=== PATIENT | male | born 1980 | race Caucasian/White ===

== ENCOUNTER 2016-05-06 16:46 | Emergency (ER) | payer MEDICARE, MEDICAID ==
[~2016-05-06 16:46] MED LIST: /ADVA50050 INH; /MIRT15TA OR; ADDE10TA PO; CHAN0.5P6 PO; CLON2TAB OR; DEPA500T2 OR; DICL0.1S7 TOP; DULE200A INH; FOLI1TAB OR; IMIT100T OR; LISI20TA5 OR; PROP20TA2 OR; QUET30XR OR; TIZA4CAP PO; TRAM50TA2 OR; [UNRECOGNIZED DRUG - OTHER]; amphetamine salts PO; vibryd PO
[2016-05-06] MEDS ORDERED: KETOROLAC 30 MG/ML VIAL (J1885) As Ordered ONE (17:47)
[2016-05-06] MEDS ORDERED: ONDANSETRON 4MG/2ML VIAL (J2405) As Ordered ONE (17:47)
[2016-05-06 18:10] LABS: BASO % 0.4 % (0.0-1.0); EOS # 0.1 K/mm3 (0.0-0.50); EOS % 1.4 % (0.0-3.0); LARGE UNSTAINED CELL # 0.2 K/mm3 (0.0-0.4); LARGE UNSTAINED CELL % 2.3 % (0.0-4.0); LYMPH # 2.6 K/mm3 (1.5-4.5); LYMPH % 27.1 % (24.0-44.0); MEAN CORPUSCULAR HEMOGLOBIN 32.1 pg (27.0-33.0); MEAN CORPUSCULAR VOLUME 91.6 fl (80.0-96.0); MONO # 0.7 K/mm3 (0.0-0.8); MONO % 6.7 % (0.0-5.0); NEUTROPHILS % 62.1 % (36.0-66.0); PLATELET COUNT, AUTOMATED 207 k/mm3 (150-450); RED CELL DISTRIBUTION WIDTH 11.5 % (11.5-14.5); WHITE BLOOD COUNT 9.7 K/mm3 (4.0-10.0)
[2016-05-06 18:12] LABS: CALCIUM OXALATE CRYSTALS SMALL
[2016-05-06 18:41] LABS: ALBUMIN 4.3 GM/DL (3.2-5.2); ALKALINE PHOSPHATASE 70 U/L (45-117); ALT/SGPT 25 U/L (12-78); ANION GAP 11 MEQ/L (8-16); AST/SGOT 11 U/L (15-37); BILIRUBIN,DIRECT 0.1 MG/DL (0.0-0.2); BILIRUBIN,TOTAL 0.3 MG/DL (0.2-1.0); BLOOD UREA NITROGEN 12 MG/DL (7-18); CALCIUM LEVEL 9.1 MG/DL (8.5-10.1); CARBON DIOXIDE LEVEL 27 MEQ/L (21-32); CHLORIDE LEVEL 106 MEQ/L (98-107); CREATININE FOR GFR 0.96 MG/DL (0.70-1.30); GLOMERULAR FILTRATION RATE > 60.0 (>60); GLUCOSE, FASTING 79 MG/DL (70-105); POTASSIUM SERUM 3.7 MEQ/L (3.5-5.1); SODIUM LEVEL 144 MEQ/L (136-145); TOTAL PROTEIN 7.6 GM/DL (6.4-8.2)
[2016-05-06] MEDS ORDERED: ISOVUE-370 76% 100ML VIAL (Q9967) As Ordered ONE (19:02)
--- NOTE | 2016-05-06 19:50 | REPUSA ---
CLINICAL HISTORY: Abdominal pain. TECHNIQUE: Multiple axial, sagittal and coronal CT images were obtained through the abdomen and pelvi s after administration of intravenous contrast material. COMMENTS: The liver is of uniform attenuation without mass or defect. There is no intra or extrahepatic biliary ductal dilatation. The spleen is normal. The gallbladder is contracted. The pancreas is of normal c ontour and attenuation characteristics. There is no evidence of adrenal mass. Both kidneys demonstrate prompt and equal nephrograms. The kidneys are normal in size, shape and conf iguration. There is no evidence of renal or ureteral mass. No renal or ureteral calculi are identifie d. There is no hydroureter or hydronephrosis. No evidence for appendicitis. There is severe circumferential wall thickening noted involving duoden um and jejunum compatible with enteritis.. No evidence for small or large bowel obstruction. There is no evidence of abdominal ascites or lymphadenopathy. There is no evidence of intrinsic or extrinsic bladder mass. There is no pelvic ascites or lymphadeno nam. Images of the lung bases show no evidence of pleural or parenchymal mass. There are no pleural effusi ons. The bony structures are free of lytic or blastic lesions. Multilevel degenerative changes are seen in volving the thoracolumbar spine. Scattered calcifications are seen involving the aorta and major bran ches compatible with atherosclerosis. IMPRESSION: Enteritis as discussed above. Infectious and inflammatory etiologies are considered. Thank you for your kind referral of this patient.
--- NOTE | 2016-05-06 20:36 | EDDOCDS ---
Nurse's Notes [facility] Name: Patrick Heaton Age: 36 yrs Sex: Male : 1980 Arrival Date: 05/06/2016 Time: 16:46 Bed I4 / M4 Private MD: Herrera Toledo G Diagnosis: Left lower quadrant abdominal tenderness;Diarrhea, unspecified;Vomiting Presentation: 05/06 16:50 Presenting complaint: Patient states: n/v/d and left lower abd/flank x2 days. Denies ttb changes. Adult Sepsis Screening: The patient does not have new or worsening altered mentation. Patient's respiratory rate is less than 22. Systolic blood pressure is greater than 100. Patient has a qSOFA score of 0- Negative Sepsis Screen. Suicide/Homicide risk assessment- the patient denies having any suicidal and/or homicidal ideations and does not present with any other emotional, behavioral or mental health complaints. 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 Transition of care: patient was not received from another setting of care. 16:50 Acuity: MARIE Level 3 ttb 16:50 Method Of Arrival: Walkin/Carried/Asstd ttb Triage Assessment: 16:53 General: Appears in no apparent distress, well nourished, Behavior is appropriate for ttb age, cooperative, pleasant. Pain: Location: left flank 01/03. HIV screening NA for this visit Offered previously. Neurological: Level of Consciousness is awake, alert. Cardiovascular: Chest pain is denied. Respiratory: No deficits noted. Airway is patent Denies cough, shortness of breath. GI: Reports diarrhea, lower abdominal pain, nausea, vomiting. : Denies burning with urination, urinary frequency, urgency. Derm: Skin is normal. Injury Description: No known injury. Historical: - Allergies: no known allergies; - Home Meds: 1. simvastatin 40 mg oral tab once daily (Last dose: 05/05/2016 20:00) 2. Adderall XR 20 mg Oral cp24 twice a day (Last dose: 05/06/2016 08:00) 3. Rexulti 2 mg oral tab 1 tab once daily 4. Depakote 500 mg Oral TbEC 1 tab 2 times per day (Last dose: 05/06/2016 08:00) 5. hydrocodone-acetaminophen 5-325 mg Oral tab every 4 hours (Last dose: 05/06/2016 10:00) - PMHx: Depression; ADHD; Bipolar disorder; - PSHx: right shoulder surgery; perirectal abscess; fistula repair 12/2015; - Social history: Smoking status: Patient uses tobacco products, current every day smoker. Patient/guardian denies using alcohol, street drugs, No barriers to communication noted, The patient speaks fluent Occitan, Speaks appropriately for age. - Family history: Not pertinent. - : The pt / caregiver states he / she is not on anticoagulants. Home medication list is obtained from the patient. - Exposure Risk Screening:: None identified. Screenin:55 Screening information is obtained from the patient. Fall risk: No risks identified. jo3 Assistance ADL's: requires no assistance with activities of daily living. Abuse/DV Screen: The patient / caregiver reports he/she is: not in a situation that causes fear, pain or injury. Nutritional screening: No deficits noted. Advance Directives: There is no active DNR order. home support is adequate. Assessment: 17:55 General: Appears in no apparent distress, comfortable, Behavior is appropriate for age, jo3 cooperative, pleasant. General: Pt is laughing and joking with staff and states that pain is 10/10. . Neurological: Level of Consciousness is awake, alert, Oriented to person, place, time. Cardiovascular: No deficits noted. Capillary refill is brisk Heart tones S1 S2 present. Respiratory: Airway is patent Respiratory effort is even, unlabored. GI: Abdomen is non- distended Bowel sounds present X 4 quads. Abd is soft X 4 quads Abd is tender to palpation in left lower quadrant. Derm: Skin is pink, warm & dry. 18:09 General: Appears reports no change in pain. casually conversing on cell phoone.. jmk 19:10 General: Patient gone to CT scan with RN.. kas2 19:17 General: Patient back from CT scan with RN. Resettled in bed.. kas2 19:17 General: Appears in no apparent distress, comfortable, Behavior is appropriate for age, kas2 cooperative. Neurological: Level of Consciousness is awake, alert, Oriented to person, place, time. Respiratory: Airway is patent Respiratory effort is even, unlabored, Respiratory pattern is regular, symmetrical. Derm: Skin is intact, Skin is dry, Skin is pink, warm & dry. Skin temperature is warm. 20:33 General: Appears in no apparent distress, Behavior is cooperative. Pain: Pain currently ld5 is 5 out of 10 on a pain scale. Neurological: Level of Consciousness is awake, alert. Respiratory: Airway is patent Respiratory effort is even, unlabored. GI: Denies nausea. Vital Signs: 16:48 BP 129 / 79; Pulse 101; Resp 16; Temp 97.8(O); Pulse Ox 98% on R/A; Weight 70.31 kg; sew Height 5 ft. 3 in. (160.02 cm); Pain 10/10; 20:33 BP 135 / 81; Pulse 81; Resp 16; Temp 95.3(T); Pulse Ox 96% on R/A; Pain 5/10; ld5 16:48 Body Mass Index 27.46 (70.31 kg, 160.02 cm) [facility] Vitals: 16:48 Log In Time: May 06, 2016 at 16:45. [facility] ED Course: 16:48 Patient visited by Bella Alejandro. sew 16:48 Unknown Pcp is Private Physician. sew 16:48 Get Turcios MD is Private Physician. sew 16:48 Herrera Toledo is Private Physician. sew 16:48 Patient moved to Waiting sew 16:49 Patient visited by Bella Alejandro. sew 16:49 Patient moved to Pre RCE sew 16:50 Triage Initiated ttb 16:54 Patient visited by Michelle Ortiz RN. ttb 16:54 Patient moved to Triage 3 ttb 17:09 [facility] mo1 17:09 Dee Dee Paz MD is Attending Physician. mo1 17:25 Patient visited by Rodrigo Bright PA. mo1 17:38 Patient moved to I4 / M4 srm 17:49 [facility] [place] was scanned into [email or web address] and attached to record. gjb 17:53 Basic Metabolic Profile Sent. jmk 17:53 CBC with Diff Sent. jmk 17:53 Lipase Sent. jmk 17:53 Liver Profile Sent. jmk 17:53 Urinalysis Sent. jmk 17:53 Urine Culture Sent. jmk 17:55 The patient / caregiver is instructed regarding the plan of care and ED course. jo3 17:55 Inserted saline lock: 18 gauge in right antecubital area. Labs drawn. (by ED staff). jo3 Sent per order to lab. 18:04 Patient visited by Corie Leary RN. jo3 18:10 Patient visited by Shyam Cordero,WHIT. eugeniok 19:20 Patient visited by Karolina Mora,WHIT. kas2 20:03 Patient visited by Karolina Mora RN. kas2 20:10 Herrera Toledo is Referral Physician. mo1 20:26 CT ABD & PELVIS: IV Contrast Only Returned. EDMS 20:33 Discontinued lock intact, bleeding controlled, pressure dressing applied, No ld5 redness/swelling at site. No procedures done that require assistance. 20:35 Patient visited by Sue Markham RN. ld5 Administered Medications: 17:52 Drug: NS 0.9% 1000 ml Route: IV; Rate: bolus; Site: right antecubital; [facility] 20:34 Follow up: IV Status: Completed infusion; IV Intake: 1000ml ld5 17:52 Drug: Ondansetron 4 mg Route: IVP; Site: right antecubital; [facility] 20:34 Follow up: Response: Nausea is decreased ld5 17:52 Drug: ketorolac 30 mg [ketorolac 30 mg/mL (1 mL) injection solution (1 mL)] Route: IVP; [facility] Site: right antecubital; 18:10 Follow up: Response: No significant change. [facility] Intake: 20:34 IV: 1000.00ml; Total: 1000.00ml. ld5 Order Results: Lab Order: Basic Metabolic Profile; [facility]' 05/06/16 17:51 Test: GLUCOSE, FASTING; Value: 79; Range: 70-105; Units: MG/DL; Status: F Test: BLOOD UREA NITROGEN; Value: 12; Range: 7-18; Units: MG/DL; Status: F Test: CREATININE FOR GFR; Value: 0.96; Range: 0.70-1.30; Units: MG/DL; Status: F Test: GLOMERULAR FILTRATION RATE; Value: > 60.0; Range: >60; Status: F Test: SODIUM LEVEL; Value: 144; Range: 136-145; Units: MEQ/L; Status: F Test: POTASSIUM SERUM; Value: 3.7; Range: 3.5-5.1; Units: MEQ/L; Status: F Test: CHLORIDE LEVEL; Value: 106; Range: 98-107; Units: MEQ/L; Status: F Test: CARBON DIOXIDE LEVEL; Value: 27; Range: 21-32; Units: MEQ/L; Status: F Test: ANION GAP; Value: 11; Range: 8-16; Units: MEQ/L; Status: F Test: CALCIUM LEVEL; Value: 9.1; Range: 8.5-10.1; Units: MG/DL; Status: F Test Note: ; Units are mL/min/1.73 m2 Chronic Kidney Disease Staging per NKF: Stage I & II GFR >=60 Normal to Mildly Decreased Stage III GFR 30-59 Moderately Decreased Stage IV GFR 15-29 Severely Decreased Stage V GFR <15 Very Little GFR Left ESRD GFR <15 on AIRPORT 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 Lab Order: CBC with Diff; SPEC'M 05/06/16 17:51 Test: WHITE BLOOD COUNT; Value: 9.7; Range: 4.0-10.0; Units: K/mm3; Status: F Test: RED BLOOD COUNT; Value: 5.50; Range: 4.30-6.10; Units: M/mm3; Status: F Test: HEMOGLOBIN; Value: 17.6; Range: 14.0-18.0; Units: g/dl; Status: F Test: HEMATOCRIT; Value: 50.4; Range: 42.0-52.0; Units: %; Status: F Test: MEAN CORPUSCULAR VOLUME; Value: 91.6; Range: 80.0-96.0; Units: fl; Status: F Test: MEAN CORPUSCULAR HEMOGLOBIN; Value: 32.1; Range: 27.0-33.0; Units: pg; Status: F Test: MEAN CORPUSCULAR HGB CONC; Value: 35.0; Range: 32.0-36.5; Units: g/dl; Status: F Test: RED CELL DISTRIBUTION WIDTH; Value: 11.5; Range: 11.5-14.5; Units: %; Status: F Test: PLATELET COUNT, AUTOMATED; Value: 207; Range: 150-450; Units: k/mm3; Status: F Test: NEUTROPHILS %; Value: 62.1; Range: 36.0-66.0; Units: %; Status: F Test: LYMPH %; Value: 27.1; Range: 24.0-44.0; Units: %; Status: F Test: MONO %; Value: 6.7; Range: 0.0-5.0; Abnormal: Above high normal; Units: %; Status: F Test: EOS %; Value: 1.4; Range: 0.0-3.0; Units: %; Status: F Test: BASO %; Value: 0.4; Range: 0.0-1.0; Units: %; Status: F Test: LARGE UNSTAINED CELL %; Value: 2.3; Range: 0.0-4.0; Units: %; Status: F Test: NEUTROPHILS #; Value: 6.0; Range: 1.8-7.7; Units: K/mm3; Status: F Test: LYMPH #; Value: 2.6; Range: 1.5-4.5; Units: K/mm3; Status: F Test: MONO #; Value: 0.7; Range: 0.0-0.8; Units: K/mm3; Status: F Test: EOS #; Value: 0.1; Range: 0.0-0.50; Units: K/mm3; Status: F Test: BASO #; Value: 0.0; Range: 0.0-0.2; Units: K/mm3; Status: F Test: LARGE UNSTAINED CELL #; Value: 0.2; Range: 0.0-0.4; Units: K/mm3; Status: F Lab Order: Lipase; SPEC'M 05/06/16 17:51 Test: LIPASE; Value: 160; Range: 73-393; Units: U/L; Status: F Lab Order: Liver Profile; SPEC'M 05/06/16 17:51 Test: AST/SGOT; Value: 11; Range: 15-37; Abnormal: Below low normal; Units: U/L; Status: F Test: ALT/SGPT; Value: 25; Range: 12-78; Units: U/L; Status: F Test: ALKALINE PHOSPHATASE; Value: 70; Range: 45-117; Units: U/L; Status: F Test: BILIRUBIN,TOTAL; Value: 0.3; Range: 0.2-1.0; Units: MG/DL; Status: F Test: BILIRUBIN,DIRECT; Value: 0.1; Range: 0.0-0.2; Units: MG/DL; Status: F Test: TOTAL PROTEIN; Value: 7.6; Range: 6.4-8.2; Units: GM/DL; Status: F Test: ALBUMIN; Value: 4.3; Range: 3.2-5.2; Units: GM/DL; Status: F Test: ALBUMIN/GLOBULIN RATIO; Value: 1.30; Range: 1.00-1.93; Status: F Lab Order: Urinalysis; SPEC'M 05/06/16 17:51 Test: APPEARANCE, URINE; Value: CLEAR; Range: CLEAR; Status: F Test: COLOR, URINE; Value: YELLOW; Range: YELLOW; Status: F Test: PH,URINE; Value: 6.0; Range: 5.0-9.0; Units: UNITS; Status: F Test: SPECIFIC GRAVITY URINE AUTO; Value: 1.023; Range: 1.002-1.035; Status: F Test: PROTEIN, URINE AUTO; Value: NEGATIVE; Range: NEGATIVE; Units: mg/dL; Status: F Test: GLUCOSE, URINE (UA) AUTO; Value: NEGATIVE; Range: NEGATIVE; Units: mg/dL; Status: F Test: KETONE, URINE AUTO; Value: TRACE; Range: NEGATIVE; Abnormal: Above high normal; Units: mg/dL; Status: F Test: UROBILINOGEN, URINE AUTO; Value: 0.2; Range: 0.0-2.0; Units: mg/dL; Status: F Test: BILIRUBIN, URINE AUTO; Value: NEGATIVE; Range: NEGATIVE; Status: F Test: NITRITE, URINE AUTO; Value: NEGATIVE; Range: NEGATIVE; Status: F Test: LEUKOCYTE ESTERASE, URINE AUTO; Value: NEGATIVE; Range: NEGATIVE; Status: F Test: BLOOD, URINE BLOOD; Value: NEGATIVE; Range: NEGATIVE; Status: F Test: WBC, URINE AUTO; Value: 1; Range: 0-3; Units: /HPF; Status: F Test: RBC, URINE AUTO; Value: 3; Range: 0-3; Units: /HPF; Status: F Test: BACTERIA, URINE AUTO; Value: NEGATIVE; Range: NEGATIVE; Status: F Test: SQUAMOUS EPITHELIAL CELL UR AU; Value: 0; Range: 0-6; Units: /HPF; Status: F Test: MUCUS, URINE; Value: LARGE; Range: NEGATIVE; Status: F Test: HYALINE CAST, URINE AUTO; Value: 0; Range: 0-1; Units: /LPF; Status: F Test: CALCIUM OXALATE CRYSTALS; Value: SMALL; Range: NONE; Status: F Radiology Order: CT ABD & PELVIS: IV Contrast Only Test: CT ABD & PELVIS: IV Contrast Only REASON FOR EXAMINATION: sharp left sided abd pain; ; CLINICAL HISTORY: Abdominal pain.; TECHNIQUE: Multiple axial, sagittal and coronal CT images were obtained through the abdomen and pelvi; s after administration of intravenous contrast material.; COMMENTS:; The liver is of uniform attenuation without mass or defect. There is no intra or extrahepatic biliary; ductal dilatation. The spleen is normal. The gallbladder is contracted. The pancreas is of normal c; ontour and attenuation characteristics. There is no evidence of adrenal mass.; Both kidneys demonstrate prompt and equal nephrograms. The kidneys are normal in size, shape and conf; iguration. There is no evidence of renal or ureteral mass. No renal or ureteral calculi are identifie; d. There is no hydroureter or hydronephrosis.; No evidence for appendicitis. There is severe circumferential wall thickening noted involving duoden; um and jejunum compatible with enteritis.. No evidence for small or large bowel obstruction. There is; no evidence of abdominal ascites or lymphadenopathy.; There is no evidence of intrinsic or extrinsic bladder mass. There is no pelvic ascites or lymphadeno; nam.; Images of the lung bases show no evidence of pleural or parenchymal mass. There are no pleural effusi; ons.; The bony structures are free of lytic or blastic lesions. Multilevel degenerative changes are seen in; volving the thoracolumbar spine. Scattered calcifications are seen involving the aorta and major bran; ches compatible with atherosclerosis.; IMPRESSION:; Enteritis as discussed above. Infectious and inflammatory etiologies are considered.; Thank you for your kind referral of this patient.; ; Outcome: 20:10 Discharge ordered by Provider. mo1 20:33 Discharge Assessment: Patient awake, alert and oriented x 3. No cognitive and/or ld5 functional deficits noted. Patient verbalized understanding of disposition instructions. patient administered narcotics - no. The following High Risk Discharge criteria are identified: None. Discharged to home ambulatory. Condition: stable. Discharge instructions given to patient, Instructed on discharge instructions, follow up and referral plans. medication usage, Demonstrated understanding of instructions, medications, Pt was receptive of discharge instructions/ teaching. Prescriptions given X 1. CT Study completed. Property :Personal belongings accompany Pt. 20:34 Patient left the ED. ld5 Signatures: Dispatcher [employer] EDShyam Summers,RN RN Nathalia Andrade RN Corie MccainRN RN Sue MorochoRN RN ld5 Bella Alejandro Teresa RN RN Rodrigo Burns PA PA mo1 Beck, Gabriela gjb Smith, KimRN RN kas2 MTDJavy
--- NOTE | 2016-05-06 20:36 | EDDOCDS ---
Physician Documentation [facility] Name: Patrick Heaton Age: 36 yrs Sex: Male : 1980 Arrival Date: 05/06/2016 Time: 16:46 Bed I4 / M4 Private MD: Herrera Toledo G Disposition: 05/06/16 20:10 Discharged to Home/Self Care. Impression: Left lower quadrant abdominal tenderness, Diarrhea, unspecified, Vomiting. - Condition is Stable. - Discharge Instructions: Abdominal Pain, Adult, Diarrhea, Nausea and Vomiting. - Prescriptions for ZOFRAN ODT 4 mg - dissolve 1 tablet by ORAL route 4 times per day As needed do not chew, do not swallow whole; 10 tablet. - Medication Reconciliation, Local Pharmacy Hours form. - Follow up: Herrera Toledo; When: Call to arrange an appointment; Reason: Recheck today's complaints, Continuance of care. - Problem is new. - Symptoms are unchanged. Historical: - Allergies: no known allergies; - Home Meds: 1. simvastatin 40 mg oral tab once daily (Last dose: 05/05/2016 20:00) 2. Adderall XR 20 mg Oral cp24 twice a day (Last dose: 05/06/2016 08:00) 3. Rexulti 2 mg oral tab 1 tab once daily 4. Depakote 500 mg Oral TbEC 1 tab 2 times per day (Last dose: 05/06/2016 08:00) 5. hydrocodone-acetaminophen 5-325 mg Oral tab every 4 hours (Last dose: 05/06/2016 10:00) - PMHx: Depression; ADHD; Bipolar disorder; - PSHx: right shoulder surgery; perirectal abscess; fistula repair 12/2015; - Social history: Smoking status: Patient uses tobacco products, current every day smoker. Patient/guardian denies using alcohol, street drugs, No barriers to communication noted, The patient speaks fluent Tristanian, Speaks appropriately for age. - Family history: Not pertinent. - : The pt / caregiver states he / she is not on anticoagulants. Home medication list is obtained from the patient. - Exposure Risk Screening:: None identified. Vital Signs: 05/06 16:48 BP 129 / 79; Pulse 101; Resp 16; Temp 97.8(O); Pulse Ox 98% on R/A; Weight 70.31 kg / sew 155.01 lbs; Height 5 ft. 3 in. (160.02 cm); Pain 10/10; 20:33 BP 135 / 81; Pulse 81; Resp 16; Temp 95.3(T); Pulse Ox 96% on R/A; Pain 5/10; ld5 16:48 Body Mass Index 27.46 (70.31 kg, 160.02 cm) sew MDM: 17:40 NS 0.9% 1000 ml IV at bolus once ordered. mo1 17:40 Ondansetron 4 mg IVP once ordered. mo1 17:40 ketorolac 30 mg IVP once ordered. mo1 17:40 IV Saline Lock ordered. mo1 17:40 Undress patient appropriately for examination ordered. mo1 17:41 Basic Metabolic Profile Ordered. EDMS 17:41 CBC with Diff Ordered. EDMS 17:41 Lipase Ordered. EDMS 17:41 Liver Profile Ordered. EDMS 17:41 Urinalysis Ordered. EDMS 17:41 Urine Culture Ordered. EDMS 17:43 NOTHING BY MOUTH+DIET ordered. EDMS 17:48 Financial registration complete. gjb 17:49 [facility] Payment Agreement was scanned into [employer] and attached to record. gjb 18:35 CBC with Diff Reviewed. mo1 18:35 Urinalysis Reviewed. mo1 18:45 Liver Profile Reviewed. mo1 18:45 Basic Metabolic Profile Reviewed. mo1 18:45 Lipase Reviewed. mo1 18:56 CT ABD & PELVIS: IV Contrast Only Ordered. EDMS Administered Medications: 17:52 Drug: NS 0.9% 1000 ml Route: IV; Rate: bolus; Site: right antecubital; jorge a 20:34 Follow up: IV Status: Completed infusion; IV Intake: 1000ml ld5 17:52 Drug: Ondansetron 4 mg Route: IVP; Site: right antecubital; jorge a 20:34 Follow up: Response: Nausea is decreased ld5 17:52 Drug: ketorolac 30 mg [ketorolac 30 mg/mL (1 mL) injection solution (1 mL)] Route: IVP; eugene Site: right antecubital; 18:10 Follow up: Response: No significant change. eugene Signatures: Dispatcher [employer] EDMS Corie Leary RN RN joSue Wright RN RN ld5 Michelle Ortiz, RN RN ttb Rodrigo Bright PA PA mo1 Vanessa Hwang Jean RN jmk The chart was reviewed and I authenticate all verbal orders and agree with the evaluation and treatment provided.Attachments: 17:49 [facility] Payment Agreement elsa MTDD
--- NOTE | 2016-05-08 21:36 | EDDOCDS ---
Physician Documentation [facility] Name: Patrick Heaton Age: 36 yrs Sex: Male : 1980 Arrival Date: 05/06/2016 Time: 16:46 Bed I4 / M4 Private MD: Herrera Toledo G Disposition: 05/06/16 20:10 Discharged to Home/Self Care. Impression: Left lower quadrant abdominal tenderness, Diarrhea, unspecified, Vomiting. - Condition is Stable. - Discharge Instructions: Abdominal Pain, Adult, Diarrhea, Nausea and Vomiting. - Prescriptions for ZOFRAN ODT 4 mg - dissolve 1 tablet by ORAL route 4 times per day As needed do not chew, do not swallow whole; 10 tablet. - Medication Reconciliation, Local Pharmacy Hours form. - Follow up: Herrera Toledo; When: Call to arrange an appointment; Reason: Recheck today's complaints, Continuance of care. - Problem is new. - Symptoms are unchanged. Historical: - Allergies: no known allergies; - Home Meds: 1. simvastatin 40 mg oral tab once daily (Last dose: 05/05/2016 20:00) 2. Adderall XR 20 mg Oral cp24 twice a day (Last dose: 05/06/2016 08:00) 3. Rexulti 2 mg oral tab 1 tab once daily 4. Depakote 500 mg Oral TbEC 1 tab 2 times per day (Last dose: 05/06/2016 08:00) 5. hydrocodone-acetaminophen 5-325 mg Oral tab every 4 hours (Last dose: 05/06/2016 10:00) - PMHx: Depression; ADHD; Bipolar disorder; - PSHx: right shoulder surgery; perirectal abscess; fistula repair 12/2015; - Social history: Smoking status: Patient uses tobacco products, current every day smoker. Patient/guardian denies using alcohol, street drugs, No barriers to communication noted, The patient speaks fluent Sami, Speaks appropriately for age. - Family history: Not pertinent. - : The pt / caregiver states he / she is not on anticoagulants. Home medication list is obtained from the patient. - Exposure Risk Screening:: None identified. Vital Signs: 05/06 16:48 BP 129 / 79; Pulse 101; Resp 16; Temp 97.8(O); Pulse Ox 98% on R/A; Weight 70.31 kg / sew 155.01 lbs; Height 5 ft. 3 in. (160.02 cm); Pain 10/10; 20:33 BP 135 / 81; Pulse 81; Resp 16; Temp 95.3(T); Pulse Ox 96% on R/A; Pain 5/10; ld5 16:48 Body Mass Index 27.46 (70.31 kg, 160.02 cm) sew MDM: 17:40 NS 0.9% 1000 ml IV at bolus once ordered. mo1 17:40 Ondansetron 4 mg IVP once ordered. mo1 17:40 ketorolac 30 mg IVP once ordered. mo1 17:40 IV Saline Lock ordered. mo1 17:40 Undress patient appropriately for examination ordered. mo1 17:41 Basic Metabolic Profile Ordered. EDMS 17:41 CBC with Diff Ordered. EDMS 17:41 Lipase Ordered. EDMS 17:41 Liver Profile Ordered. EDMS 17:41 Urinalysis Ordered. EDMS 17:41 Urine Culture Ordered. EDMS 17:43 NOTHING BY MOUTH+DIET ordered. EDMS 17:48 Financial registration complete. gjb 17:49 [facility] Payment Agreement was scanned into [employer] and attached to record. gjb 18:35 CBC with Diff Reviewed. mo1 18:35 Urinalysis Reviewed. mo1 18:45 Liver Profile Reviewed. mo1 18:45 Basic Metabolic Profile Reviewed. mo1 18:45 Lipase Reviewed. mo1 18:56 CT ABD & PELVIS: IV Contrast Only Ordered. EDMS 05/07 11:32 T-Sheet-- Draft Copy was scanned into [employer] and attached to record. gb 16:34 Radiology Report was scanned into [employer] and attached to record. gb 17:41 Radiology Report was scanned into [employer] and attached to record. gb Administered Medications: 05/06 17:52 Drug: NS 0.9% 1000 ml Route: IV; Rate: bolus; Site: right antecubital; k 20:34 Follow up: IV Status: Completed infusion; IV Intake: 1000ml ld5 17:52 Drug: Ondansetron 4 mg Route: IVP; Site: right antecubital; k 20:34 Follow up: Response: Nausea is decreased ld5 17:52 Drug: ketorolac 30 mg [ketorolac 30 mg/mL (1 mL) injection solution (1 mL)] Route: IVP; eugene Site: right antecubital; 18:10 Follow up: Response: No significant change. eugene Signatures: Dispatcher [employer] Lexii Palmer, Gamal Reg gb Corie Leary,RN RN jo3 Sue MarkhamRN RN ld5 Michelle Ortiz RN RN Rodrigo Burns PA PA mo1 Beck, Gabriela gjb Knapp, Jean RN jmk The chart was reviewed and I authenticate all verbal orders and agree with the evaluation and treatment provided.Attachments: 17:49 [facility] Payment Agreement gjb 05/07 11:32 T-Sheet-- Draft Copy gb Chart Complete MTDD
--- NOTE | 2016-05-08 21:36 | EDDOCDS ---
Nurse's Notes [facility] Name: Patrick Heaton Age: 36 yrs Sex: Male : 1980 Arrival Date: 05/06/2016 Time: 16:46 Bed I4 / M4 Private MD: Herrera Toledo G Diagnosis: Left lower quadrant abdominal tenderness;Diarrhea, unspecified;Vomiting Presentation: 05/06 16:50 Presenting complaint: Patient states: n/v/d and left lower abd/flank x2 days. Denies ttb changes. Adult Sepsis Screening: The patient does not have new or worsening altered mentation. Patient's respiratory rate is less than 22. Systolic blood pressure is greater than 100. Patient has a qSOFA score of 0- Negative Sepsis Screen. Suicide/Homicide risk assessment- the patient denies having any suicidal and/or homicidal ideations and does not present with any other emotional, behavioral or mental health complaints. Status: Patient is not a field service representative or dependent. Transition of care: patient was not received from another setting of care. 16:50 Acuity: MARIE Level 3 ttb 16:50 Method Of Arrival: Walkin/Carried/Asstd ttb Triage Assessment: 16:53 General: Appears in no apparent distress, well nourished, Behavior is appropriate for ttb age, cooperative, pleasant. Pain: Location: left flank 01/03. HIV screening NA for this visit Offered previously. Neurological: Level of Consciousness is awake, alert. Cardiovascular: Chest pain is denied. Respiratory: No deficits noted. Airway is patent Denies cough, shortness of breath. GI: Reports diarrhea, lower abdominal pain, nausea, vomiting. : Denies burning with urination, urinary frequency, urgency. Derm: Skin is normal. Injury Description: No known injury. Historical: - Allergies: no known allergies; - Home Meds: 1. simvastatin 40 mg oral tab once daily (Last dose: 05/05/2016 20:00) 2. Adderall XR 20 mg Oral cp24 twice a day (Last dose: 05/06/2016 08:00) 3. Rexulti 2 mg oral tab 1 tab once daily 4. Depakote 500 mg Oral TbEC 1 tab 2 times per day (Last dose: 05/06/2016 08:00) 5. hydrocodone-acetaminophen 5-325 mg Oral tab every 4 hours (Last dose: 05/06/2016 10:00) - PMHx: Depression; ADHD; Bipolar disorder; - PSHx: right shoulder surgery; perirectal abscess; fistula repair 12/2015; - Social history: Smoking status: Patient uses tobacco products, current every day smoker. Patient/guardian denies using alcohol, street drugs, No barriers to communication noted, The patient speaks fluent Bulgarian, Speaks appropriately for age. - Family history: Not pertinent. - : The pt / caregiver states he / she is not on anticoagulants. Home medication list is obtained from the patient. - Exposure Risk Screening:: None identified. Screenin:55 Screening information is obtained from the patient. Fall risk: No risks identified. jo3 Assistance ADL's: requires no assistance with activities of daily living. Abuse/DV Screen: The patient / caregiver reports he/she is: not in a situation that causes fear, pain or injury. Nutritional screening: No deficits noted. Advance Directives: There is no active DNR order. home support is adequate. Assessment: 17:55 General: Appears in no apparent distress, comfortable, Behavior is appropriate for age, jo3 cooperative, pleasant. General: Pt is laughing and joking with staff and states that pain is 10/10. . Neurological: Level of Consciousness is awake, alert, Oriented to person, place, time. Cardiovascular: No deficits noted. Capillary refill is brisk Heart tones S1 S2 present. Respiratory: Airway is patent Respiratory effort is even, unlabored. GI: Abdomen is non- distended Bowel sounds present X 4 quads. Abd is soft X 4 quads Abd is tender to palpation in left lower quadrant. Derm: Skin is pink, warm & dry. 18:09 General: Appears reports no change in pain. casually conversing on cell phoone.. jmk 19:10 General: Patient gone to CT scan with RN.. kas2 19:17 General: Patient back from CT scan with RN. Resettled in bed.. kas2 19:17 General: Appears in no apparent distress, comfortable, Behavior is appropriate for age, kas2 cooperative. Neurological: Level of Consciousness is awake, alert, Oriented to person, place, time. Respiratory: Airway is patent Respiratory effort is even, unlabored, Respiratory pattern is regular, symmetrical. Derm: Skin is intact, Skin is dry, Skin is pink, warm & dry. Skin temperature is warm. 20:33 General: Appears in no apparent distress, Behavior is cooperative. Pain: Pain currently ld5 is 5 out of 10 on a pain scale. Neurological: Level of Consciousness is awake, alert. Respiratory: Airway is patent Respiratory effort is even, unlabored. GI: Denies nausea. Vital Signs: 16:48 BP 129 / 79; Pulse 101; Resp 16; Temp 97.8(O); Pulse Ox 98% on R/A; Weight 70.31 kg; sew Height 5 ft. 3 in. (160.02 cm); Pain 10/10; 20:33 BP 135 / 81; Pulse 81; Resp 16; Temp 95.3(T); Pulse Ox 96% on R/A; Pain 5/10; ld5 16:48 Body Mass Index 27.46 (70.31 kg, 160.02 cm) [facility] [place]: 16:48 Log In Time: May 06, 2016 at 16:45. [facility] [place] Course: 16:48 Patient visited by Bella Alejandro. sew 16:48 Unknown Pcp is Private Physician. sew 16:48 Get Turcios MD is Private Physician. sew 16:48 Herrera Toledo is Private Physician. sew 16:48 Patient moved to Waiting sew 16:49 Patient visited by Bella Alejandro. sew 16:49 Patient moved to Pre RCE sew 16:50 Triage Initiated ttb 16:54 Patient visited by Michelle Ortiz RN. ttb 16:54 Patient moved to Triage 3 ttb 17:09 [facility] mo1 17:09 Dee Dee Paz MD is Attending Physician. mo1 17:25 Patient visited by Rodrigo Bright PA. mo1 17:38 Patient moved to I4 / M4 srm 17:49 [facility] [place] Payment Agreement was scanned into [employer] and attached to record. gjb 17:53 Basic Metabolic Profile Sent. jmk 17:53 CBC with Diff Sent. jmk 17:53 Lipase Sent. jmk 17:53 Liver Profile Sent. jmk 17:53 Urinalysis Sent. jmk 17:53 Urine Culture Sent. jmk 17:55 The patient / caregiver is instructed regarding the plan of care and ED course. jo3 17:55 Inserted saline lock: 18 gauge in right antecubital area. Labs drawn. (by ED staff). jo3 Sent per order to lab. 18:04 Patient visited by Corie Leary RN. jo3 18:10 Patient visited by Shyam Cordero,WHIT. eugeniok 19:20 Patient visited by Karolina Mora,WHIT. kas2 20:03 Patient visited by Karolina Mora RN. kas2 20:10 Herrera Toledo is Referral Physician. mo1 20:26 CT ABD & PELVIS: IV Contrast Only Returned. EDMS 20:33 Discontinued lock intact, bleeding controlled, pressure dressing applied, No ld5 redness/swelling at site. No procedures done that require assistance. 20:35 Patient visited by uSe Markham RN. ld5 05/07 11:32 T-Sheet-- Draft Copy was scanned into [employer] and attached to record. gb 16:34 Radiology Report was scanned into [employer] and attached to record. gb 17:41 Radiology Report was scanned into [employer] and attached to record. gb Administered Medications: 05/06 17:52 Drug: NS 0.9% 1000 ml Route: IV; Rate: bolus; Site: right antecubital; k 20:34 Follow up: IV Status: Completed infusion; IV Intake: 1000ml ld5 17:52 Drug: Ondansetron 4 mg Route: IVP; Site: right antecubital; k 20:34 Follow up: Response: Nausea is decreased ld5 17:52 Drug: ketorolac 30 mg [ketorolac 30 mg/mL (1 mL) injection solution (1 mL)] Route: IVP; [facility] Site: right antecubital; 18:10 Follow up: Response: No significant change. [facility] Intake: 20:34 IV: 1000.00ml; Total: 1000.00ml. ld5 Order Results: Lab Order: Basic Metabolic Profile; SPEC'M 05/06/16 17:51 Test: GLUCOSE, FASTING; Value: 79; Range: 70-105; Units: MG/DL; Status: F Test: BLOOD UREA NITROGEN; Value: 12; Range: 7-18; Units: MG/DL; Status: F Test: CREATININE FOR GFR; Value: 0.96; Range: 0.70-1.30; Units: MG/DL; Status: F Test: GLOMERULAR FILTRATION RATE; Value: > 60.0; Range: >60; Status: F Test: SODIUM LEVEL; Value: 144; Range: 136-145; Units: MEQ/L; Status: F Test: POTASSIUM SERUM; Value: 3.7; Range: 3.5-5.1; Units: MEQ/L; Status: F Test: CHLORIDE LEVEL; Value: 106; Range: 98-107; Units: MEQ/L; Status: F Test: CARBON DIOXIDE LEVEL; Value: 27; Range: 21-32; Units: MEQ/L; Status: F Test: ANION GAP; Value: 11; Range: 8-16; Units: MEQ/L; Status: F Test: CALCIUM LEVEL; Value: 9.1; Range: 8.5-10.1; Units: MG/DL; Status: F Test Note: ; Units are mL/min/1.73 m2 Chronic Kidney Disease Staging per NKF: Stage I & II GFR >=60 Normal to Mildly Decreased Stage III GFR 30-59 Moderately Decreased Stage IV GFR 15-29 Severely Decreased Stage V GFR <15 Very Little GFR Left ESRD GFR <15 on BATTING [employer]ACH[employer] INSULATION Lab Order: CBC with Diff; SPEC'M 05/06/16 17:51 Test: WHITE BLOOD COUNT; Value: 9.7; Range: 4.0-10.0; Units: K/mm3; Status: F Test: RED BLOOD COUNT; Value: 5.50; Range: 4.30-6.10; Units: M/mm3; Status: F Test: HEMOGLOBIN; Value: 17.6; Range: 14.0-18.0; Units: g/dl; Status: F Test: HEMATOCRIT; Value: 50.4; Range: 42.0-52.0; Units: %; Status: F Test: MEAN CORPUSCULAR VOLUME; Value: 91.6; Range: 80.0-96.0; Units: fl; Status: F Test: MEAN CORPUSCULAR HEMOGLOBIN; Value: 32.1; Range: 27.0-33.0; Units: pg; Status: F Test: MEAN CORPUSCULAR HGB CONC; Value: 35.0; Range: 32.0-36.5; Units: g/dl; Status: F Test: RED CELL DISTRIBUTION WIDTH; Value: 11.5; Range: 11.5-14.5; Units: %; Status: F Test: PLATELET COUNT, AUTOMATED; Value: 207; Range: 150-450; Units: k/mm3; Status: F Test: NEUTROPHILS %; Value: 62.1; Range: 36.0-66.0; Units: %; Status: F Test: LYMPH %; Value: 27.1; Range: 24.0-44.0; Units: %; Status: F Test: MONO %; Value: 6.7; Range: 0.0-5.0; Abnormal: Above high normal; Units: %; Status: F Test: EOS %; Value: 1.4; Range: 0.0-3.0; Units: %; Status: F Test: BASO %; Value: 0.4; Range: 0.0-1.0; Units: %; Status: F Test: LARGE UNSTAINED CELL %; Value: 2.3; Range: 0.0-4.0; Units: %; Status: F Test: NEUTROPHILS #; Value: 6.0; Range: 1.8-7.7; Units: K/mm3; Status: F Test: LYMPH #; Value: 2.6; Range: 1.5-4.5; Units: K/mm3; Status: F Test: MONO #; Value: 0.7; Range: 0.0-0.8; Units: K/mm3; Status: F Test: EOS #; Value: 0.1; Range: 0.0-0.50; Units: K/mm3; Status: F Test: BASO #; Value: 0.0; Range: 0.0-0.2; Units: K/mm3; Status: F Test: LARGE UNSTAINED CELL #; Value: 0.2; Range: 0.0-0.4; Units: K/mm3; Status: F Lab Order: Lipase; SPEC'M 05/06/16 17:51 Test: LIPASE; Value: 160; Range: 73-393; Units: U/L; Status: F Lab Order: Liver Profile; SPEC'M 05/06/16 17:51 Test: AST/SGOT; Value: 11; Range: 15-37; Abnormal: Below low normal; Units: U/L; Status: F Test: ALT/SGPT; Value: 25; Range: 12-78; Units: U/L; Status: F Test: ALKALINE PHOSPHATASE; Value: 70; Range: 45-117; Units: U/L; Status: F Test: BILIRUBIN,TOTAL; Value: 0.3; Range: 0.2-1.0; Units: MG/DL; Status: F Test: BILIRUBIN,DIRECT; Value: 0.1; Range: 0.0-0.2; Units: MG/DL; Status: F Test: TOTAL PROTEIN; Value: 7.6; Range: 6.4-8.2; Units: GM/DL; Status: F Test: ALBUMIN; Value: 4.3; Range: 3.2-5.2; Units: GM/DL; Status: F Test: ALBUMIN/GLOBULIN RATIO; Value: 1.30; Range: 1.00-1.93; Status: F Lab Order: Urinalysis; SPEC'M 05/06/16 17:51 Test: APPEARANCE, URINE; Value: CLEAR; Range: CLEAR; Status: F Test: COLOR, URINE; Value: YELLOW; Range: YELLOW; Status: F Test: PH,URINE; Value: 6.0; Range: 5.0-9.0; Units: UNITS; Status: F Test: SPECIFIC GRAVITY URINE AUTO; Value: 1.023; Range: 1.002-1.035; Status: F Test: PROTEIN, URINE AUTO; Value: NEGATIVE; Range: NEGATIVE; Units: mg/dL; Status: F Test: GLUCOSE, URINE (UA) AUTO; Value: NEGATIVE; Range: NEGATIVE; Units: mg/dL; Status: F Test: KETONE, URINE AUTO; Value: TRACE; Range: NEGATIVE; Abnormal: Above high normal; Units: mg/dL; Status: F Test: UROBILINOGEN, URINE AUTO; Value: 0.2; Range: 0.0-2.0; Units: mg/dL; Status: F Test: BILIRUBIN, URINE AUTO; Value: NEGATIVE; Range: NEGATIVE; Status: F Test: NITRITE, URINE AUTO; Value: NEGATIVE; Range: NEGATIVE; Status: F Test: LEUKOCYTE ESTERASE, URINE AUTO; Value: NEGATIVE; Range: NEGATIVE; Status: F Test: BLOOD, URINE BLOOD; Value: NEGATIVE; Range: NEGATIVE; Status: F Test: WBC, URINE AUTO; Value: 1; Range: 0-3; Units: /HPF; Status: F Test: RBC, URINE AUTO; Value: 3; Range: 0-3; Units: /HPF; Status: F Test: BACTERIA, URINE AUTO; Value: NEGATIVE; Range: NEGATIVE; Status: F Test: SQUAMOUS EPITHELIAL CELL UR AU; Value: 0; Range: 0-6; Units: /HPF; Status: F Test: MUCUS, URINE; Value: LARGE; Range: NEGATIVE; Status: F Test: HYALINE CAST, URINE AUTO; Value: 0; Range: 0-1; Units: /LPF; Status: F Test: CALCIUM OXALATE CRYSTALS; Value: SMALL; Range: NONE; Status: F Lab Order: Urine Culture; SPEC'M 05/06/16 17:51 Test: URINE CULTURE; Value: <EXTERNAL COMMENT eCWMed> FULL REPORT IN LAB NOTES (eCW and Medent).; Status: F Test: URINE CULTURE; Value: URINE CULTURE RESULT NO GROWTH; Status: F Radiology Order: CT ABD & PELVIS: IV Contrast Only Test: CT ABD & PELVIS: IV Contrast Only REASON FOR EXAMINATION: sharp left sided abd pain; ; CLINICAL HISTORY: Abdominal pain.; TECHNIQUE: Multiple axial, sagittal and coronal CT images were obtained through the abdomen and pelvi; s after administration of intravenous contrast material.; COMMENTS:; The liver is of uniform attenuation without mass or defect. There is no intra or extrahepatic biliary; ductal dilatation. The spleen is normal. The gallbladder is contracted. The pancreas is of normal c; ontour and attenuation characteristics. There is no evidence of adrenal mass.; Both kidneys demonstrate prompt and equal nephrograms. The kidneys are normal in size, shape and conf; iguration. There is no evidence of renal or ureteral mass. No renal or ureteral calculi are identifie; d. There is no hydroureter or hydronephrosis.; No evidence for appendicitis. There is severe circumferential wall thickening noted involving duoden; um and jejunum compatible with enteritis.. No evidence for small or large bowel obstruction. There is; no evidence of abdominal ascites or lymphadenopathy.; There is no evidence of intrinsic or extrinsic bladder mass. There is no pelvic ascites or lymphadeno; nam.; Images of the lung bases show no evidence of pleural or parenchymal mass. There are no pleural effusi; ons.; The bony structures are free of lytic or blastic lesions. Multilevel degenerative changes are seen in; volving the thoracolumbar spine. Scattered calcifications are seen involving the aorta and major bran; ches compatible with atherosclerosis.; IMPRESSION:; Enteritis as discussed above. Infectious and inflammatory etiologies are considered.; Thank you for your kind referral of this patient.; ; Outcome: 20:10 Discharge ordered by Provider. mo1 20:33 Discharge Assessment: Patient awake, alert and oriented x 3. No cognitive and/or ld5 functional deficits noted. Patient verbalized understanding of disposition instructions. patient administered narcotics - no. The following High Risk Discharge criteria are identified: None. Discharged to home ambulatory. Condition: stable. Discharge instructions given to patient, Instructed on discharge instructions, follow up and referral plans. medication usage, Demonstrated understanding of instructions, medications, Pt was receptive of discharge instructions/ teaching. Prescriptions given X 1. CT Study completed. Property :Personal belongings accompany Pt. 20:34 Patient left the ED. ld5 Signatures: Dispatcher [employer] EDMS Shyam Cordero,RN RN Nathalia Andrade RN RN contra [facility] Parth, Lexii, Reg Reg Corie LearyRN RN galindo3 uSe MarkhamRN RN ld5 Bella Alejandro Teresa RN RN Rodrigo Burns PA PA mo1 Vanessa Hwang Kim,RN RN kas2 Chart Complete MTDD
--- NOTE | 2016-05-08 21:37 | EDDOCDS ---
Physician Documentation [facility] Name: Patrick Heaton Age: 36 yrs Sex: Male : 1980 Arrival Date: 05/06/2016 Time: 16:46 Bed I4 / M4 Private MD: Herrera Toledo G Disposition: 05/06/16 20:10 Discharged to Home/Self Care. Impression: Left lower quadrant abdominal tenderness, Diarrhea, unspecified, Vomiting. - Condition is Stable. - Discharge Instructions: Abdominal Pain, Adult, Diarrhea, Nausea and Vomiting. - Prescriptions for ZOFRAN ODT 4 mg - dissolve 1 tablet by ORAL route 4 times per day As needed do not chew, do not swallow whole; 10 tablet. - Medication Reconciliation, Local Pharmacy Hours form. - Follow up: Herrera Toledo; When: Call to arrange an appointment; Reason: Recheck today's complaints, Continuance of care. - Problem is new. - Symptoms are unchanged. Historical: - Allergies: no known allergies; - Home Meds: 1. simvastatin 40 mg oral tab once daily (Last dose: 05/05/2016 20:00) 2. Adderall XR 20 mg Oral cp24 twice a day (Last dose: 05/06/2016 08:00) 3. Rexulti 2 mg oral tab 1 tab once daily 4. Depakote 500 mg Oral TbEC 1 tab 2 times per day (Last dose: 05/06/2016 08:00) 5. hydrocodone-acetaminophen 5-325 mg Oral tab every 4 hours (Last dose: 05/06/2016 10:00) - PMHx: Depression; ADHD; Bipolar disorder; - PSHx: right shoulder surgery; perirectal abscess; fistula repair 12/2015; - Social history: Smoking status: Patient uses tobacco products, current every day smoker. Patient/guardian denies using alcohol, street drugs, No barriers to communication noted, The patient speaks fluent Hebrew, Speaks appropriately for age. - Family history: Not pertinent. - : The pt / caregiver states he / she is not on anticoagulants. Home medication list is obtained from the patient. - Exposure Risk Screening:: None identified. Vital Signs: 05/06 16:48 BP 129 / 79; Pulse 101; Resp 16; Temp 97.8(O); Pulse Ox 98% on R/A; Weight 70.31 kg / sew 155.01 lbs; Height 5 ft. 3 in. (160.02 cm); Pain 10/10; 20:33 BP 135 / 81; Pulse 81; Resp 16; Temp 95.3(T); Pulse Ox 96% on R/A; Pain 5/10; ld5 16:48 Body Mass Index 27.46 (70.31 kg, 160.02 cm) sew MDM: 17:40 NS 0.9% 1000 ml IV at bolus once ordered. mo1 17:40 Ondansetron 4 mg IVP once ordered. mo1 17:40 ketorolac 30 mg IVP once ordered. mo1 17:40 IV Saline Lock ordered. mo1 17:40 Undress patient appropriately for examination ordered. mo1 17:41 Basic Metabolic Profile Ordered. EDMS 17:41 CBC with Diff Ordered. EDMS 17:41 Lipase Ordered. EDMS 17:41 Liver Profile Ordered. EDMS 17:41 Urinalysis Ordered. EDMS 17:41 Urine Culture Ordered. EDMS 17:43 NOTHING BY MOUTH+DIET ordered. EDMS 17:48 Financial registration complete. gjb 17:49 [facility] Payment Agreement was scanned into [email or web address] and attached to record. gjb 18:35 CBC with Diff Reviewed. mo1 18:35 Urinalysis Reviewed. mo1 18:45 Liver Profile Reviewed. mo1 18:45 Basic Metabolic Profile Reviewed. mo1 18:45 Lipase Reviewed. mo1 18:56 CT ABD & PELVIS: IV Contrast Only Ordered. EDMS 05/07 11:32 T-Sheet-- Draft Copy was scanned into [email or web address] and attached to record. gb 16:34 Radiology Report was scanned into [email or web address] and attached to record. gb 17:41 Radiology Report was scanned into [email or web address] and attached to record. gb Administered Medications: 05/06 17:52 Drug: NS 0.9% 1000 ml Route: IV; Rate: bolus; Site: right antecubital; k 20:34 Follow up: IV Status: Completed infusion; IV Intake: 1000ml ld5 17:52 Drug: Ondansetron 4 mg Route: IVP; Site: right antecubital; k 20:34 Follow up: Response: Nausea is decreased ld5 17:52 Drug: ketorolac 30 mg [ketorolac 30 mg/mL (1 mL) injection solution (1 mL)] Route: IVP; eugene Site: right antecubital; 18:10 Follow up: Response: No significant change. eugene Signatures: Dispatcher [employer] Lexii Palmer, Gamal Reg gb Corie Leary,RN RN jo3 Sue MarkhamRN RN ld5 Michelle Ortiz RN RN Rodrigo Burns PA PA mo1 Beck, Gabriela gjb Knapp, Jean RN jmk The chart was reviewed and I authenticate all verbal orders and agree with the evaluation and treatment provided.Attachments: 17:49 [facility] Payment Agreement gjb 05/07 11:32 T-Sheet-- Draft Copy gb Chart Complete MTDD
== END 2016-05-06 20:34 | disposition home or self-care (01) ==
LOC: M ED 16:46
DX: A08.4 Viral intestinal infection, unspecified (principal); E86.0 Dehydration; F31.9 Bipolar disorder, unspecified; F90.1 Attention-deficit hyperactivity disorder, predominantly hyperactive type; Z72.0 Tobacco use; Z79.891 Long term (current) use of opiate analgesic; Z79.899 Other long term (current) drug therapy
CPT/HCPCS: 36415; 74177; 80048; 80076; 81001; 83690; 85025; 87086; 96361; 96374; 96375; 99284; J1885; J2405; Q9967

== ENCOUNTER → 2016-08-23 | Outpatient (CLI) | payer MEDICARE, MEDICAID ==
[~2016-08-23] MED LIST changes: +DEXTROAMP-AMPHETAMIN; +DIVA500T9; +GASTROGRAFIN SOLUTION 30ML (Q9963) As Ordered ONE; +ISOVUE-370 76% 100ML VIAL (Q9967) As Ordered ONE; +OMEP40CA2; +PRIM50TA6; +PROP1TAB29; +QUET1TAB10; +TOPI1TAB31; +TOPI50TA4; +TRAZ100T4; +ZOFR4TAB3 PO; +ZOLM5TAB2
--- NOTE | 2016-08-23 18:04 | REP ---
CT ABDOMEN: REASON: Abdominal pain. COMPARISON: 05/06/2016 CONTRAST: 100 mL Isovue-370 The precontrast enhanced portion of the examination shows hepatic and splenic densities to be within normal limits. There are no nephroliths and there are no choleliths. Contrast enhanced portion of the examination shows the liver, gallbladder, spleen, pancreas, adrenal glands, and kidneys to be within normal limits and essentially unchanged. The abdominal aorta and paraortic regions are within normal limits. There is no free fluid or free air. The bowel loops and their mesenteries are within normal limits. There is no intraabdominal mass or adenopathy. CT PELVIS: There is no free fluid or free air. There is no pelvic mass or adenopathy. The pelvic bowel loops and their mesenteries are within normal limits. Bone window technique throughout the examination shows the osseous structures to be stable and intact. IMPRESSION: CT findings, are as described above and are within normal limits. Signed by Pito Boogie DO 08/23/2016 06:04 P
== END ==
LOC: M RAD 14:55
PROVIDERS: ATTEND Internal Medicine Gastroenterology
DX: R10.84 Generalized abdominal pain (principal)
CPT/HCPCS: 74178; Q9963; Q9967

== ENCOUNTER 2016-09-01 11:23 | Emergency (ER) | payer MEDICARE, MEDICAID ==
[~2016-09-01] VITALS: Ht 167.6 cm; Wt 79.4 kg
[~2016-09-01 11:23] MED LIST changes: -DEXTROAMP-AMPHETAMIN; -DIVA500T9; -GASTROGRAFIN SOLUTION 30ML (Q9963) As Ordered ONE; -ISOVUE-370 76% 100ML VIAL (Q9967) As Ordered ONE; -OMEP40CA2; -PRIM50TA6; -PROP1TAB29; -QUET1TAB10; -TOPI1TAB31; -TOPI50TA4; -TRAZ100T4; -ZOFR4TAB3 PO; -ZOLM5TAB2
[2016-09-01] MEDS ORDERED: TRAZ100T4 (11:38)
[2016-09-01] MEDS ORDERED: DEXTROAMP-AMPHETAMIN (11:38)
[2016-09-01] MEDS ORDERED: OMEP40CA2 (11:38)
[2016-09-01] MEDS ORDERED: DIVA500T9 (11:38)
[2016-09-01] MEDS ORDERED: PRIM50TA6 (11:38)
[2016-09-01] MEDS ORDERED: ZOLM5TAB2 (11:38)
[2016-09-01] MEDS ORDERED: PROP1TAB29 (11:38)
[2016-09-01] MEDS ORDERED: TOPI50TA4 (11:38)
[2016-09-01] MEDS ORDERED: TOPI1TAB31 (11:38)
[2016-09-01] MEDS ORDERED: QUET1TAB10 (11:38)
[2016-09-01] MEDS ORDERED: NS 1,000 ML IV ONE (12:00)
[2016-09-01] MEDS ORDERED: ONDANSETRON 4MG/2ML VIAL (J2405) IV ONE (12:00)
[2016-09-01] MEDS ORDERED: KETOROLAC 30 MG/ML VIAL (J1885) IV ONE (12:00)
[2016-09-01 12:27] LABS: BASO % 0.3 % (0.0-1.0); EOS # 0.1 K/mm3 (0.0-0.50); EOS % 0.8 % (0.0-3.0); LARGE UNSTAINED CELL # 0.1 K/mm3 (0.0-0.4); LARGE UNSTAINED CELL % 1.7 % (0.0-4.0); LYMPH # 1.3 K/mm3 (1.5-4.5); LYMPH % 15.4 % (24.0-44.0); MEAN CORPUSCULAR HEMOGLOBIN 33.2 pg (27.0-33.0); MEAN CORPUSCULAR HGB CONC 36.2 g/dl (32.0-36.5); MEAN CORPUSCULAR VOLUME 91.7 fl (80.0-96.0); MONO # 0.7 K/mm3 (0.0-0.8); MONO % 9.5 % (0.0-5.0); NEUTROPHILS # 5.6 K/mm3 (1.8-7.7); NEUTROPHILS % 72.3 % (36.0-66.0); PLATELET COUNT, AUTOMATED 148 k/mm3 (150-450); RED CELL DISTRIBUTION WIDTH 11.9 % (11.5-14.5); WHITE BLOOD COUNT 7.7 K/mm3 (4.0-10.0)
[2016-09-01 12:59] LABS: ALKALINE PHOSPHATASE 80 U/L (45-117); ALT/SGPT 24 U/L (12-78); ANION GAP 6 MEQ/L (8-16); AST/SGOT 17 U/L (15-37); BILIRUBIN,TOTAL 0.4 MG/DL (0.2-1.0); BLOOD UREA NITROGEN 8 MG/DL (7-18); CALCIUM LEVEL 8.3 MG/DL (8.5-10.1); CARBON DIOXIDE LEVEL 26 MEQ/L (21-32); CHLORIDE LEVEL 105 MEQ/L (98-107); CREATININE FOR GFR 1.05 MG/DL (0.70-1.30); GLOMERULAR FILTRATION RATE > 60.0 (>60); GLUCOSE, FASTING 88 MG/DL (70-105); POTASSIUM SERUM 3.5 MEQ/L (3.5-5.1); SODIUM LEVEL 137 MEQ/L (136-145)
[2016-09-01 13:00] LABS: ALBUMIN 3.6 GM/DL (3.2-5.2); ALBUMIN/GLOBULIN RATIO 1.06 (1.00-1.93)
[2016-09-01] MEDS ORDERED: ZOFR4TAB3 PO (13:57)
[2016-09-01 14:11] VITALS: BP 101/64
== END 2016-09-01 14:22 | disposition home or self-care (01) ==
LOC: M ED 12:05
DX: R11.2 Nausea with vomiting, unspecified (principal); K58.0 Irritable bowel syndrome with diarrhea; K21.9 Gastro-esophageal reflux disease without esophagitis; F17.200 Nicotine dependence, unspecified, uncomplicated; Z79.899 Other long term (current) drug therapy
CPT/HCPCS: 80048; 80076; 81001; 83690; 85025; 96361; 96374; 96375; 99283; J1885; J2405

== ENCOUNTER → 2017-05-04 | Outpatient (CLI) | payer MEDICARE, MEDICAID ==
[2017-05-04 12:40] LABS: ALBUMIN 3.9 GM/DL (3.2-5.2); ALKALINE PHOSPHATASE 68 U/L (45-117); ALT/SGPT 29 U/L (12-78); ANION GAP 5 MEQ/L (8-16); AST/SGOT 17 U/L (7-37); BILIRUBIN,TOTAL 0.5 MG/DL (0.2-1.0); BLOOD UREA NITROGEN 9 MG/DL (7-18); CARBON DIOXIDE LEVEL 29 MEQ/L (21-32); CHLORIDE LEVEL 107 MEQ/L (98-107); CHOLESTEROL LEVEL 212 MG/DL (<200); CHOLESTEROL RISK RATIO 4.818 (<5); CREATININE FOR GFR 1.04 MG/DL (0.70-1.30); FREE T4 1.01 NG/DL (0.76-1.46); GLOMERULAR FILTRATION RATE > 60.0 (>60); GLUCOSE, FASTING 91 MG/DL (70-100); HDL CHOLESTEROL 44 MG/DL (>40); LDL CHOLESTEROL 127.2 MG/DL (<100); NON-HDL-C 168 MG/DL; POTASSIUM SERUM 4.1 MEQ/L (3.5-5.1); SODIUM LEVEL 141 MEQ/L (136-145); THYROID STIMULATING HORMONE 0.664 uIU/ML (0.358-3.740); TOTAL PROTEIN 6.9 GM/DL (6.4-8.2); TRIGLYCERIDES LEVEL 204 MG/DL (<150)
== END ==
LOC: M LAB 11:49
DX: E78.5 Hyperlipidemia, unspecified (principal)
CPT/HCPCS: 84443

== ENCOUNTER → 2017-06-19 | Outpatient (REF) | payer OTHER | LOC: M SMT 13:55 | DX: Z30.09 Encounter for other general counseling and advice on contraception (principal) ==

== ENCOUNTER → 2017-08-17 | Outpatient (REF) | payer OTHER, MEDICARE, MEDICAID ==
[2017-08-17 14:06] LABS: SEMEN APPEARANCE OPAQUE (OPAQUE); SEMEN VISCOSITY LIQUID (LIQUID); SEMEN VOLUME 1.2 ml (4.0-5.0)
[2017-08-17 14:07] LABS: IMMMOTILE SPERM CENTRIFUGED ABSENT (ABSENT); IMMOTILE SPERM ABSENT (ABSENT); MOTILE SPERM ABSENT (ABSENT); MOTILE SPERM CENTRIFUGED ABSENT (ABSENT); WBC CONCENTRATION <=1 M/ml (<=1 M/ml)
== END ==
LOC: M SMT 13:47
DX: Z30.09 Encounter for other general counseling and advice on contraception (principal)

== ENCOUNTER 2017-10-06 08:13 | Inpatient (IN) | payer MEDICARE, MEDICAID, OTHER ==
[2017-10-06] MEDS: ASCORBIC ACID 500 MG TAB PO (09:00)
[2017-10-06] MEDS: MORPHINE 2 MG/ML 1ML SYRINGE (J2270) IV ×2 (09:10→09:42)
[2017-10-06] MEDS: NS 1,000 ML IV ×2 (09:10→10:00)
[2017-10-06] MEDS: ONDANSETRON 4MG/2ML VIAL (J2405) IV (09:10)
[2017-10-06 09:16] LABS: BASO % 0.4 % (0.0-1.0); EOS # 0.1 10^3/uL (0.0-0.50); EOS % 1.3 % (0.0-3.0); HEMATOCRIT 50.8 % (42.0-52.0); HEMOGLOBIN 17.9 g/dl (13.5-17.5); IMMATURE GRANULOCYTE % 0.5 % (0-3.0); LYMPH # 2.1 10^3/uL (1.5-4.5); LYMPH % 25.8 % (24.0-44.0); MEAN CORPUSCULAR HEMOGLOBIN 32.7 pg (27.0-33.0); MEAN CORPUSCULAR HGB CONC 35.2 g/dl (32.0-36.5); MEAN CORPUSCULAR VOLUME 92.7 fl (80.0-96.0); MONO # 0.6 10^3/uL (0.0-0.8); MONO % 7.6 % (0.0-5.0); NEUTROPHILS # 5.3 10^3/uL (1.8-7.7); NEUTROPHILS % 64.4 % (36.0-66.0); PLATELET COUNT, AUTOMATED 159 10^3/uL (150-450); RED BLOOD COUNT 5.48 10^6/uL (4.30-6.10); RED CELL DISTRIBUTION WIDTH 11.5 % (11.5-14.5); WHITE BLOOD COUNT 8.3 10^3/uL (4.0-10.0)
[2017-10-06 09:37] LABS: BEDSIDE GLUCOSE 111 MG/DL (70-105)
[2017-10-06] MEDS: VANCOMYCIN HCL 1,000 MG, VIAL MATE ADAPTER 1 EACH in D5W 250 ML IV ×2 (09:38→18:58)
[2017-10-06 09:41] LABS: ALBUMIN/GLOBULIN RATIO 1.03 (1.00-1.93); ALKALINE PHOSPHATASE 73 U/L (45-117); ALT/SGPT 29 U/L (12-78); ANION GAP 9 MEQ/L (8-16); AST/SGOT 16 U/L (7-37); BILIRUBIN,DIRECT < 0.1 MG/DL (0.0-0.2); BILIRUBIN,TOTAL 0.3 MG/DL (0.2-1.0); BLOOD UREA NITROGEN 13 MG/DL (7-18); C REACTIVE PROTEIN QUANTITATIV < 0.30 MG/DL (0.00-0.30); CARBON DIOXIDE LEVEL 26 MEQ/L (21-32); CHLORIDE LEVEL 105 MEQ/L (98-107); CREATININE FOR GFR 1.08 MG/DL (0.70-1.30); GLOMERULAR FILTRATION RATE > 60.0 (>60); GLUCOSE, FASTING 94 MG/DL (70-100); LIPASE 122 U/L (73-393); POTASSIUM SERUM 3.5 MEQ/L (3.5-5.1); SODIUM LEVEL 140 MEQ/L (136-145); TOTAL PROTEIN 7.9 GM/DL (6.4-8.2)
[2017-10-06] MEDS ORDERED: ISOVUE-370 76% 100ML VIAL (Q9967) As Ordered (09:45)
[2017-10-06 09:47] LABS: LACTIC ACID SEPSIS PROTOCOL 2.5 MMOL/L (0.4-2.0)
[2017-10-06 10:17] LABS: ERYTHROCYTE SEDIMENTATION RATE 1 mm/hr (0-15)
[2017-10-06] MEDS ORDERED: IBUPROFEN 800 MG TAB PO (14:30)
[2017-10-06] MEDS ORDERED: ZOLMitriptan TABLET 2.5MG PO (14:30)
[2017-10-06] MEDS ORDERED: ACETAMINOPHEN TAB 650MG DOSE (2X325MG) PO (14:30)
[2017-10-06] MEDS ORDERED: QUEtiapine FUMARATE 100 MG TAB PO (14:30)
[2017-10-06] MEDS: NICOTINE 14 MG/24 HR TRANSDERMAL TD (18:57)
[2017-10-06] MEDS: MONTELUKAST 10 MG TAB PO (18:57)
[2017-10-06] MEDS: NORCO, ANEXSIA 5/325MG TABLET (HYDROcodone/ACETAMINOPHEN) PO (18:58)
[2017-10-06] MEDS: PROPRANOLOL 20 MG TAB PO (20:22)
[2017-10-06] MEDS: SIMVASTATIN 40 MG TAB PO (20:22)
[2017-10-06] MEDS: PRIMIDONE 50 MG TAB PO (20:22)
[2017-10-06] MEDS: traZODone 100 MG TAB PO (20:22)
[2017-10-06] MEDS: TOPIRAMATE (TopAMAX) 25 MG TAB PO (20:22)
[2017-10-06] MEDS: OMEPRAZOLE 20 MG CAP PO (20:23)
[2017-10-07] MEDS: VANCOMYCIN HCL 1,000 MG, VIAL MATE ADAPTER 1 EACH in D5W 250 ML IV ×3 (00:24→16:01)
[2017-10-07] MEDS: NORCO, ANEXSIA 5/325MG TABLET (HYDROcodone/ACETAMINOPHEN) PO ×4 (01:42→21:20)
[2017-10-07 08:02] LABS: HEMATOCRIT 43.7 % (42.0-52.0); MEAN CORPUSCULAR HEMOGLOBIN 32.8 pg (27.0-33.0); MEAN CORPUSCULAR HGB CONC 35.5 g/dl (32.0-36.5); MEAN CORPUSCULAR VOLUME 92.6 fl (80.0-96.0); PLATELET COUNT, AUTOMATED 141 10^3/uL (150-450); RED BLOOD COUNT 4.72 10^6/uL (4.30-6.10); RED CELL DISTRIBUTION WIDTH 11.4 % (11.5-14.5); WHITE BLOOD COUNT 6.7 10^3/uL (4.0-10.0)
[2017-10-07 08:07] LABS: HEMOGLOBIN 15.5 g/dl (13.5-17.5)
[2017-10-07] MEDS: ASCORBIC ACID 500 MG TAB PO (08:20)
[2017-10-07] MEDS: PRIMIDONE 50 MG TAB PO ×2 (08:20→21:21)
[2017-10-07] MEDS: MONTELUKAST 10 MG TAB PO (08:20)
[2017-10-07] MEDS: DIVALPROEX 500MG *ER* TAB PO (08:21)
[2017-10-07 08:24] LABS: ALBUMIN 3.4 GM/DL (3.2-5.2); ALBUMIN/GLOBULIN RATIO 1.06 (1.00-1.93); ALKALINE PHOSPHATASE 59 U/L (45-117); ALT/SGPT 24 U/L (12-78); ANION GAP 8 MEQ/L (8-16); AST/SGOT 12 U/L (7-37); BILIRUBIN,TOTAL 0.5 MG/DL (0.2-1.0); BLOOD UREA NITROGEN 12 MG/DL (7-18); CARBON DIOXIDE LEVEL 25 MEQ/L (21-32); CHLORIDE LEVEL 106 MEQ/L (98-107); CREATININE FOR GFR 0.98 MG/DL (0.70-1.30); GLOMERULAR FILTRATION RATE > 60.0 (>60); GLUCOSE, FASTING 94 MG/DL (70-100); SODIUM LEVEL 139 MEQ/L (136-145); TOTAL PROTEIN 6.6 GM/DL (6.4-8.2)
[2017-10-07] MEDS: NICOTINE 14 MG/24 HR TRANSDERMAL TD (08:24)
[2017-10-07] MEDS: PROPRANOLOL 20 MG TAB PO ×2 (08:24→21:19)
[2017-10-07] MEDS: ADDERALL 5 MG TAB PO (14:45)
[2017-10-07] MEDS: OMEPRAZOLE 20 MG CAP PO (21:19)
[2017-10-07] MEDS: SIMVASTATIN 40 MG TAB PO (21:19)
[2017-10-07] MEDS: traZODone 100 MG TAB PO (21:20)
[2017-10-07] MEDS: TOPIRAMATE (TopAMAX) 25 MG TAB PO (21:21)
[2017-10-08] MEDS: VANCOMYCIN HCL 1,000 MG, VIAL MATE ADAPTER 1 EACH in D5W 250 ML IV ×3 (00:17→16:26)
[2017-10-08] MEDS: NORCO, ANEXSIA 5/325MG TABLET (HYDROcodone/ACETAMINOPHEN) PO ×3 (02:45→20:42)
[2017-10-08 07:28] LABS: HEMATOCRIT 43.4 % (42.0-52.0); HEMOGLOBIN 15.4 g/dl (13.5-17.5); MEAN CORPUSCULAR HEMOGLOBIN 32.8 pg (27.0-33.0); MEAN CORPUSCULAR HGB CONC 35.5 g/dl (32.0-36.5); MEAN CORPUSCULAR VOLUME 92.5 fl (80.0-96.0); PLATELET COUNT, AUTOMATED 137 10^3/uL (150-450); RED BLOOD COUNT 4.69 10^6/uL (4.30-6.10); RED CELL DISTRIBUTION WIDTH 11.2 % (11.5-14.5); WHITE BLOOD COUNT 5.3 10^3/uL (4.0-10.0)
[2017-10-08 07:41] LABS: ALBUMIN 3.4 GM/DL (3.2-5.2); ALBUMIN/GLOBULIN RATIO 1.03 (1.00-1.93); ALKALINE PHOSPHATASE 60 U/L (45-117); ALT/SGPT 22 U/L (12-78); ANION GAP 5 MEQ/L (8-16); AST/SGOT 8 U/L (7-37); BILIRUBIN,TOTAL 0.4 MG/DL (0.2-1.0); BLOOD UREA NITROGEN 8 MG/DL (7-18); CALCIUM LEVEL 8.3 MG/DL (8.5-10.1); CARBON DIOXIDE LEVEL 28 MEQ/L (21-32); CHLORIDE LEVEL 106 MEQ/L (98-107); GLOMERULAR FILTRATION RATE > 60.0 (>60); GLUCOSE, FASTING 92 MG/DL (70-100); POTASSIUM SERUM 3.9 MEQ/L (3.5-5.1); SODIUM LEVEL 139 MEQ/L (136-145); TOTAL PROTEIN 6.7 GM/DL (6.4-8.2)
[2017-10-08] MEDS: ADDERALL 5 MG TAB PO ×2 (08:17→14:23)
[2017-10-08] MEDS: DIVALPROEX 500MG *ER* TAB PO (08:17)
[2017-10-08] MEDS: ASCORBIC ACID 500 MG TAB PO (08:17)
[2017-10-08] MEDS: MONTELUKAST 10 MG TAB PO (08:17)
[2017-10-08] MEDS: NICOTINE 14 MG/24 HR TRANSDERMAL TD (08:18)
[2017-10-08] MEDS: PROPRANOLOL 20 MG TAB PO ×2 (08:18→20:41)
[2017-10-08] MEDS: PRIMIDONE 50 MG TAB PO ×2 (08:18→20:40)
[2017-10-08] MEDS: OMEPRAZOLE 20 MG CAP PO (20:40)
[2017-10-08] MEDS: traZODone 100 MG TAB PO (20:41)
[2017-10-08] MEDS: TOPIRAMATE (TopAMAX) 25 MG TAB PO (20:41)
[2017-10-08] MEDS: SIMVASTATIN 40 MG TAB PO (20:41)
[2017-10-09 07:26] LABS: HEMATOCRIT 44.4 % (42.0-52.0); HEMOGLOBIN 15.7 g/dl (13.5-17.5); MEAN CORPUSCULAR HEMOGLOBIN 32.2 pg (27.0-33.0); MEAN CORPUSCULAR HGB CONC 35.4 g/dl (32.0-36.5); MEAN CORPUSCULAR VOLUME 91.2 fl (80.0-96.0); PLATELET COUNT, AUTOMATED 147 10^3/uL (150-450); RED BLOOD COUNT 4.87 10^6/uL (4.30-6.10); WHITE BLOOD COUNT 5.4 10^3/uL (4.0-10.0)
[2017-10-09] MEDS: VANCOMYCIN HCL 1,000 MG, VIAL MATE ADAPTER 1 EACH in D5W 250 ML IV ×2 (07:55)
[2017-10-09] MEDS: ADDERALL 5 MG TAB PO (07:55)
[2017-10-09 07:59] LABS: ALBUMIN 3.6 GM/DL (3.2-5.2); ALBUMIN/GLOBULIN RATIO 1.13 (1.00-1.93); ALKALINE PHOSPHATASE 66 U/L (45-117); ALT/SGPT 23 U/L (12-78); ANION GAP 6 MEQ/L (8-16); AST/SGOT 13 U/L (7-37); BILIRUBIN,TOTAL 0.4 MG/DL (0.2-1.0); BLOOD UREA NITROGEN 8 MG/DL (7-18); CALCIUM LEVEL 8.2 MG/DL (8.5-10.1); CARBON DIOXIDE LEVEL 28 MEQ/L (21-32); CHLORIDE LEVEL 106 MEQ/L (98-107); CREATININE FOR GFR 1.03 MG/DL (0.70-1.30); GLOMERULAR FILTRATION RATE > 60.0 (>60); GLUCOSE, FASTING 99 MG/DL (70-100); POTASSIUM SERUM 4.2 MEQ/L (3.5-5.1); SODIUM LEVEL 140 MEQ/L (136-145); TOTAL PROTEIN 6.8 GM/DL (6.4-8.2)
[2017-10-09] MEDS: NICOTINE 14 MG/24 HR TRANSDERMAL TD (09:09)
[2017-10-09] MEDS: PROPRANOLOL 20 MG TAB PO (09:10)
[2017-10-09] MEDS: MONTELUKAST 10 MG TAB PO (09:10)
[2017-10-09] MEDS: ASCORBIC ACID 500 MG TAB PO (09:12)
[2017-10-09] MEDS: PRIMIDONE 50 MG TAB PO (09:12)
[2017-10-09] MEDS: DIVALPROEX 500MG *ER* TAB PO (09:27)
== END 2017-10-09 12:00 | disposition home or self-care (01) | DRG 603 ==
LOC: M PED 10-07 18:30 → M ED 08:13 → M ED INP 14:18 → M MS5PR 17:10
DX: L03.314 Cellulitis of groin (principal); L02.214 Cutaneous abscess of groin; F31.9 Bipolar disorder, unspecified; F90.9 Attention-deficit hyperactivity disorder, unspecified type; Z79.899 Other long term (current) drug therapy; E78.5 Hyperlipidemia, unspecified; J45.909 Unspecified asthma, uncomplicated

== ENCOUNTER → 2017-11-16 | Outpatient (CLI) | payer MEDICARE, MEDICAID | LOC: M RAD 12:26 | DX: S96.911A Strain of unspecified muscle and tendon at ankle and foot level, right foot, initial encounter (principal); X58.XXXA Exposure to other specified factors, initial encounter; Y92.89 Other specified places as the place of occurrence of the external cause; M25.571 Pain in right ankle and joints of right foot | CPT/HCPCS: 73610 ==

== ENCOUNTER → 2017-11-29 | Outpatient (REF) | payer MEDICARE, MEDICAID ==
[2017-11-29 16:28] LABS: ALBUMIN 4.2 GM/DL (3.2-5.2); ALBUMIN/GLOBULIN RATIO 1.31 (1.00-1.93); ALKALINE PHOSPHATASE 65 U/L (45-117); ALT/SGPT 27 U/L (12-78); ANION GAP 13 MEQ/L (8-16); AST/SGOT 10 U/L (7-37); BILIRUBIN,TOTAL 0.3 MG/DL (0.2-1.0); BLOOD UREA NITROGEN 12 MG/DL (7-18); CALCIUM LEVEL 9.2 MG/DL (8.5-10.1); CARBON DIOXIDE LEVEL 26 MEQ/L (21-32); CHLORIDE LEVEL 103 MEQ/L (98-107); CREATININE FOR GFR 0.87 MG/DL (0.70-1.30); GLOMERULAR FILTRATION RATE > 60.0 (>60); GLUCOSE, FASTING 83 MG/DL (70-100); POTASSIUM SERUM 4.2 MEQ/L (3.5-5.1); SODIUM LEVEL 142 MEQ/L (136-145); TOTAL PROTEIN 7.4 GM/DL (6.4-8.2)
[2017-11-29 17:13] LABS: HIV 1&2 SCREEN CENTAUR NEGATIVE (NEGATIVE)
[2017-11-29 18:02] LABS: CHLAMYDIA DNA AMPLIFICATION NEGATIVE (NEGATIVE); GC DNA AMPLIFICATION NEGATIVE (NEGATIVE)
== END ==
LOC: M SFHCPLAZ 14:34
DX: E78.5 Hyperlipidemia, unspecified (principal); Z20.2 Contact with and (suspected) exposure to infections with a predominantly sexual mode of transmission; Z11.3 Encounter for screening for infections with a predominantly sexual mode of transmission
CPT/HCPCS: 80053

== ENCOUNTER 2017-12-19 17:13 | Emergency (ER) | payer MEDICARE, MEDICAID ==
[2017-12-19] MEDS ORDERED: MORPHINE 4 MG/ML 1ML VIAL/SYRINGE (J2270) IV ×2 (18:00)
[2017-12-19 18:19] LABS: BASO % 0.5 % (0.0-1.0); EOS # 0.1 10^3/uL (0.0-0.50); EOS % 1.1 % (0.0-3.0); HEMATOCRIT 46.4 % (42.0-52.0); HEMOGLOBIN 16.8 g/dl (13.5-17.5); IMMATURE GRANULOCYTE % 0.4 % (0-3.0); LYMPH # 2.7 10^3/uL (1.5-4.5); LYMPH % 32.1 % (24.0-44.0); MEAN CORPUSCULAR HGB CONC 36.2 g/dl (32.0-36.5); MEAN CORPUSCULAR VOLUME 91.2 fl (80.0-96.0); MONO # 0.6 10^3/uL (0.0-0.8); MONO % 7.1 % (0.0-5.0); NEUTROPHILS # 4.9 10^3/uL (1.8-7.7); NEUTROPHILS % 58.8 % (36.0-66.0); PLATELET COUNT, AUTOMATED 166 10^3/uL (150-450); RED BLOOD COUNT 5.09 10^6/uL (4.30-6.10); RED CELL DISTRIBUTION WIDTH 11.5 % (11.5-14.5); WHITE BLOOD COUNT 8.3 10^3/uL (4.0-10.0)
[2017-12-19 18:50] LABS: ANION GAP 13 MEQ/L (8-16); BLOOD UREA NITROGEN 7 MG/DL (7-18); CALCIUM LEVEL 9.4 MG/DL (8.5-10.1); CARBON DIOXIDE LEVEL 23 MEQ/L (21-32); CHLORIDE LEVEL 104 MEQ/L (98-107); CREATININE FOR GFR 0.85 MG/DL (0.70-1.30); GLOMERULAR FILTRATION RATE > 60.0 (>60); GLUCOSE, FASTING 99 MG/DL (70-100); SODIUM LEVEL 140 MEQ/L (136-145)
[2017-12-19] MEDS: ONDANSETRON 4MG/2ML VIAL (J2405) IV ×2 (19:03)
[2017-12-19] MEDS: NS 1,000 ML IV ×2 (19:03)
[2017-12-19] MEDS: KETOROLAC 30 MG/ML VIAL (J1885) IV ×2 (19:04)
[2017-12-19 19:09] LABS: ALBUMIN/GLOBULIN RATIO 1.33 (1.00-1.93); ALKALINE PHOSPHATASE 59 U/L (45-117); ALT/SGPT 24 U/L (12-78); AST/SGOT 15 U/L (7-37); BILIRUBIN,DIRECT < 0.1 MG/DL (0.0-0.2); BILIRUBIN,TOTAL 0.3 MG/DL (0.2-1.0)
== END 2017-12-19 20:34 | disposition home or self-care (01) ==
LOC: M ED 17:13
DX: R10.32 Left lower quadrant pain (principal); R11.2 Nausea with vomiting, unspecified; R19.7 Diarrhea, unspecified; I10 Essential (primary) hypertension; E78.5 Hyperlipidemia, unspecified; G43.909 Migraine, unspecified, not intractable, without status migrainosus; J45.909 Unspecified asthma, uncomplicated; G89.29 Other chronic pain; M54.5 Low back pain; Z72.0 Tobacco use; Z79.899 Other long term (current) drug therapy
CPT/HCPCS: J2405

== ENCOUNTER → 2017-12-19 | Outpatient (REF) | payer MEDICARE, MEDICAID | LOC: M SFHCPLAZ 15:11 | DX: R10.32 Left lower quadrant pain (principal); Z53.8 Procedure and treatment not carried out for other reasons ==

== ENCOUNTER → 2017-12-19 | Outpatient (CLI) | payer MEDICARE, MEDICAID ==
[2017-12-19 16:18] LABS: BASO % 0.3 % (0.0-1.0); EOS # 0.1 10^3/uL (0.0-0.50); EOS % 1.1 % (0.0-3.0); HEMATOCRIT 47.7 % (42.0-52.0); HEMOGLOBIN 17.1 g/dl (13.5-17.5); IMMATURE GRANULOCYTE % 0.2 % (0-3.0); LYMPH # 2.9 10^3/uL (1.5-4.5); LYMPH % 30.1 % (24.0-44.0); MEAN CORPUSCULAR HEMOGLOBIN 33.1 pg (27.0-33.0); MEAN CORPUSCULAR HGB CONC 35.8 g/dl (32.0-36.5); MEAN CORPUSCULAR VOLUME 92.3 fl (80.0-96.0); MONO # 0.7 10^3/uL (0.0-0.8); MONO % 7.6 % (0.0-5.0); NEUTROPHILS # 5.8 10^3/uL (1.8-7.7); NEUTROPHILS % 60.7 % (36.0-66.0); PLATELET COUNT, AUTOMATED 178 10^3/uL (150-450); RED BLOOD COUNT 5.17 10^6/uL (4.30-6.10); RED CELL DISTRIBUTION WIDTH 11.6 % (11.5-14.5); WHITE BLOOD COUNT 9.6 10^3/uL (4.0-10.0)
[2017-12-19 16:22] LABS: APPEARANCE, URINE CLEAR (CLEAR); BACTERIA, URINE AUTO NEGATIVE (NEGATIVE); BILIRUBIN, URINE AUTO NEGATIVE (NEGATIVE); BLOOD, URINE BLOOD NEGATIVE (NEGATIVE); COLOR, URINE YELLOW (YELLOW); GLUCOSE, URINE (UA) AUTO NEGATIVE (NEGATIVE); KETONE, URINE AUTO NEGATIVE (NEGATIVE); LEUKOCYTE ESTERASE, URINE AUTO NEGATIVE (NEGATIVE); NITRITE, URINE AUTO NEGATIVE (NEGATIVE); PROTEIN, URINE AUTO NEGATIVE (NEGATIVE); RBC, URINE AUTO 3 /HPF (0-3); SQUAMOUS EPITHELIAL CELL UR AU 0 /HPF (0-6); UROBILINOGEN, URINE AUTO 0.2 mg/dL (0.0-2.0); WBC, URINE AUTO 0 /HPF (0-3)
== END ==
LOC: M RAD 15:52
DX: K57.30 Diverticulosis of large intestine without perforation or abscess without bleeding (principal); R10.32 Left lower quadrant pain
CPT/HCPCS: 74176

== ENCOUNTER → 2018-01-18 | Outpatient (CLI) | payer MEDICARE, MEDICAID | LOC: M SLEEP HO 13:36 | DX: G47.33 Obstructive sleep apnea (adult) (pediatric) (principal) | CPT/HCPCS: G0399 ==

== ENCOUNTER → 2018-02-07 | Outpatient (REF) | payer MEDICARE, MEDICAID | LOC: M SFHCPLAZ 16:17 | DX: K52.9 Noninfective gastroenteritis and colitis, unspecified (principal); R11.2 Nausea with vomiting, unspecified; Z53.8 Procedure and treatment not carried out for other reasons ==

== ENCOUNTER → 2018-02-08 | Outpatient (REF) | payer MEDICARE, MEDICAID ==
[2018-02-08 15:23] LABS: BASO % 0.2 % (0.0-1.0); EOS # 0.1 10^3/uL (0.0-0.50); EOS % 0.6 % (0.0-3.0); HEMATOCRIT 48.5 % (42.0-52.0); HEMOGLOBIN 16.7 g/dl (13.5-17.5); IMMATURE GRANULOCYTE % 0.4 % (0-3.0); LYMPH # 2.6 10^3/uL (1.5-4.5); LYMPH % 20.7 % (24.0-44.0); MEAN CORPUSCULAR HEMOGLOBIN 32.4 pg (27.0-33.0); MEAN CORPUSCULAR HGB CONC 34.4 g/dl (32.0-36.5); MEAN CORPUSCULAR VOLUME 94.2 fl (80.0-96.0); MONO % 8.1 % (0.0-5.0); NEUTROPHILS # 8.8 10^3/uL (1.8-7.7); PLATELET COUNT, AUTOMATED 143 10^3/uL (150-450); RED BLOOD COUNT 5.15 10^6/uL (4.30-6.10); RED CELL DISTRIBUTION WIDTH 11.2 % (11.5-14.5); WHITE BLOOD COUNT 12.6 10^3/uL (4.0-10.0)
[2018-02-08 15:38] LABS: ALBUMIN 4.1 GM/DL (3.2-5.2); ALBUMIN/GLOBULIN RATIO 1.32 (1.00-1.93); ALKALINE PHOSPHATASE 60 U/L (45-117); ALT/SGPT 25 U/L (12-78); ANION GAP 8 MEQ/L (8-16); AST/SGOT 12 U/L (7-37); BILIRUBIN,TOTAL 0.5 MG/DL (0.2-1.0); BLOOD UREA NITROGEN 11 MG/DL (7-18); CARBON DIOXIDE LEVEL 30 MEQ/L (21-32); CHLORIDE LEVEL 103 MEQ/L (98-107); CREATININE FOR GFR 0.92 MG/DL (0.70-1.30); GLOMERULAR FILTRATION RATE > 60.0 (>60); GLUCOSE, FASTING 63 MG/DL (70-100); SODIUM LEVEL 141 MEQ/L (136-145); TOTAL PROTEIN 7.2 GM/DL (6.4-8.2)
== END ==
LOC: M SFHCPLAZ 10:54
DX: K52.9 Noninfective gastroenteritis and colitis, unspecified (principal); R11.2 Nausea with vomiting, unspecified
CPT/HCPCS: 80053

== ENCOUNTER → 2018-02-28 | Outpatient (CLI) | payer MEDICARE ==
[2018-02-28 14:14] LABS: ESTIMATED AVERAGE GLUCOSE 111 MG/DL (60-110); HEMOGLOBIN A1c 5.5 %
[2018-02-28 17:54] LABS: APPEARANCE, URINE CLEAR (CLEAR); BACTERIA, URINE AUTO NEGATIVE (NEGATIVE); BILIRUBIN, URINE AUTO NEGATIVE (NEGATIVE); BLOOD, URINE BLOOD NEGATIVE (NEGATIVE); COLOR, URINE YELLOW (YELLOW); GLUCOSE, URINE (UA) AUTO NEGATIVE (NEGATIVE); KETONE, URINE AUTO NEGATIVE (NEGATIVE); LEUKOCYTE ESTERASE, URINE AUTO NEGATIVE (NEGATIVE); MUCUS, URINE SMALL (NEGATIVE); NITRITE, URINE AUTO NEGATIVE (NEGATIVE); PROTEIN, URINE AUTO NEGATIVE (NEGATIVE); RBC, URINE AUTO 0 /HPF (0-3); SPECIFIC GRAVITY URINE AUTO 1.012 (1.002-1.035); SQUAMOUS EPITHELIAL CELL UR AU 0 /HPF (0-6); UROBILINOGEN, URINE AUTO 0.2 mg/dL (0.0-2.0); WBC, URINE AUTO 1 /HPF (0-3)
== END ==
LOC: M SMT 11:14
DX: N50.82 Scrotal pain (principal); E16.2 Hypoglycemia, unspecified
CPT/HCPCS: 83036

== ENCOUNTER → 2018-03-06 | Outpatient (CLI) | payer MEDICARE, MEDICAID | LOC: M RAD 12:55 | DX: N50.82 Scrotal pain (principal); G89.29 Other chronic pain; N50.3 Cyst of epididymis; N43.3 Hydrocele, unspecified; I86.1 Scrotal varices | CPT/HCPCS: 76870 ==

== ENCOUNTER 2018-04-02 23:17 | Emergency (ER) | payer MEDICARE, MEDICAID ==
[~2018-04-02] VITALS: Ht 167.6 cm; Wt 84.1 kg
[~2018-04-02 23:17] MED LIST changes: +AMPH20CA PO; +BACT800T5 PO; +BENT10CA PO; +DEXTROAMP-AMPHETAMIN; +DIVA500T9 PO; +DOXY-350 PO; +FLON1SPR; +IBUP1TAB7 PO; +NICODIS2 TD; +OMEP40CA2 PO; +PRIM50TA6 PO; +PROP20TA72 PO; +QUET1TAB10; +SERO1TAB2 PO; +SIMV40TA2 PO; +SING10TA32 PO; +TOPI100T9; +TOPI50TA9 PO; +TRAZ-163 PO; +VITA500T PO; +ZOFR4TAB14 PO; +ZOLM5TAB2 SL
[2018-04-02] MEDS ORDERED: HYDR50TA70 PO (23:28)
[2018-04-03 01:14] LABS: BASO % 0.3 % (0.0-1.0); EOS # 0.1 10^3/uL (0.0-0.50); EOS % 0.5 % (0.0-3.0); HEMATOCRIT 45.9 % (42.0-52.0); HEMOGLOBIN 16.5 g/dl (13.5-17.5); LYMPH # 2.7 10^3/uL (1.5-4.5); LYMPH % 24.6 % (24.0-44.0); MEAN CORPUSCULAR HEMOGLOBIN 32.8 pg (27.0-33.0); MEAN CORPUSCULAR HGB CONC 35.9 g/dl (32.0-36.5); MEAN CORPUSCULAR VOLUME 91.3 fl (80.0-96.0); MONO # 0.8 10^3/uL (0.0-0.8); MONO % 6.9 % (0.0-5.0); NEUTROPHILS # 7.4 10^3/uL (1.8-7.7); NEUTROPHILS % 67.4 % (36.0-66.0); PLATELET COUNT, AUTOMATED 191 10^3/uL (150-450); RED BLOOD COUNT 5.03 10^6/uL (4.30-6.10)
[2018-04-03] MEDS ORDERED: NS 1,000 ML IV ONE (01:15)
[2018-04-03 01:46] LABS: ALBUMIN 4.1 GM/DL (3.2-5.2); ALT/SGPT 31 U/L (12-78); BILIRUBIN,DIRECT < 0.1 MG/DL (0.0-0.2); BILIRUBIN,TOTAL 0.4 MG/DL (0.2-1.0); BLOOD UREA NITROGEN 13 MG/DL (7-18); CALCIUM LEVEL 8.7 MG/DL (8.5-10.1); CARBON DIOXIDE LEVEL 25 MEQ/L (21-32); CHLORIDE LEVEL 106 MEQ/L (98-107); CREATININE FOR GFR 0.85 MG/DL (0.70-1.30); GLOMERULAR FILTRATION RATE > 60.0 (>60); GLUCOSE, FASTING 100 MG/DL (70-100); LIPASE 100 U/L (73-393); POTASSIUM SERUM 3.8 MEQ/L (3.5-5.1); SODIUM LEVEL 140 MEQ/L (136-145); TOTAL PROTEIN 6.9 GM/DL (6.4-8.2); VALPROIC ACID (DEPAKOTE) 8.3 UG/ML (50.0-100.0)
[2018-04-03] MEDS ORDERED: ZOFR4TAB14 PO (02:04)
[2018-04-03 02:13] VITALS: BP 125/82
== END 2018-04-03 02:17 | disposition home or self-care (01) ==
LOC: M ED 23:17
DX: K52.9 Noninfective gastroenteritis and colitis, unspecified (principal); J45.909 Unspecified asthma, uncomplicated; F31.9 Bipolar disorder, unspecified

== ENCOUNTER → 2018-04-03 | Outpatient (REF) | payer MEDICARE, MEDICAID ==
[~2018-04-03] MED LIST changes: +HYDR50TA70 PO
[2018-04-03 21:01] LABS: HEMATOCRIT 47.4 % (42.0-52.0); HEMOGLOBIN 16.6 g/dl (13.5-17.5); MEAN CORPUSCULAR HEMOGLOBIN 32.4 pg (27.0-33.0); MEAN CORPUSCULAR VOLUME 92.4 fl (80.0-96.0); PLATELET COUNT, AUTOMATED 213 10^3/uL (150-450); RED BLOOD COUNT 5.13 10^6/uL (4.30-6.10); WHITE BLOOD COUNT 11.6 10^3/uL (4.0-10.0)
[2018-04-03 21:15] LABS: ALBUMIN 4.3 GM/DL (3.2-5.2); ALT/SGPT 26 U/L (12-78); BILIRUBIN,TOTAL 0.4 MG/DL (0.2-1.0); BLOOD UREA NITROGEN 9 MG/DL (7-18); CALCIUM LEVEL 9.2 MG/DL (8.5-10.1); CARBON DIOXIDE LEVEL 27 MEQ/L (21-32); CHLORIDE LEVEL 106 MEQ/L (98-107); CREATININE FOR GFR 0.81 MG/DL (0.70-1.30); GLOMERULAR FILTRATION RATE > 60.0 (>60); GLUCOSE, FASTING 62 MG/DL (70-100); POTASSIUM SERUM 3.9 MEQ/L (3.5-5.1); SODIUM LEVEL 142 MEQ/L (136-145); TOTAL PROTEIN 7.4 GM/DL (6.4-8.2)
== END ==
LOC: M SFHCPLAZ 14:47
PROVIDERS: ATTEND Nurse Practitioner Family
DX: K62.5 Hemorrhage of anus and rectum (principal); R19.7 Diarrhea, unspecified; K62.89 Other specified diseases of anus and rectum; A63.0 Anogenital (venereal) warts
CPT/HCPCS: 36415; 80053; 82270; 85027; G0463

== ENCOUNTER → 2018-04-24 | Outpatient (CLI) | payer MEDICARE, MEDICAID ==
[~2018-04-24] MED LIST changes: +E-Z-GAS II EFFERVESCENT PACKET (SODIUM BICARB./CITRIC ACID/SIMETHICONE) As Ordered ONE; +E-Z-HD 98% w/w 340GM SUSP BTL As Ordered ONE; +E-Z-PAQUE 96% w/w SUSP 176GM BTL As Ordered ONE
--- NOTE | 2018-04-24 16:22 | REP ---
UPPER GI AIR CONTRAST AND SMALL BOWEL FOLLOW THROUGH The procedure was performed under the direct supervision of Dr. Osman. The images were reviewed with Dr. Osman The chimney mechanic film shows no organomegaly or pathological masses. The intestinal gas pattern is non-specific. Liquid barium and gas producing crystals were given in the erect position as well as liquid barium in the prone oblique position in order to perform a double contrast upper GI examination. Additionally liquid barium was given at the end of the examination in order to perform a small bowel follow through. The oral and pharyngeal stages of deglutition are unremarkable. Esophageal transport is prompt and efficient and there is no esophagitis, stricture, mucosal ring or hiatal hernia. There is gastroesophageal reflux demonstrated to above the level of the ally. Within the stomach there are prominent folds which may represent gastritis. There is no jewels ulcer identified. The duodenal lane are normally outlined . The mucosal folds are smooth and regular. There is no duodenitis, peptic ulcer disease or neoplasm. The visualized portion of the proximal small bowel appears normal in course and caliber. The barium column was followed through the small bowel to the level of the terminal ileum. Small bowel transit time is is rapid as there is contrast in the rectum at the 15 minutes film. . During fluoroscopy gentle palpation shows all loops are freely movable and pliable. There are no fixed or angulated loops. The small bowel mucosal pattern is normal in course and caliber. There is no transition to suggest a partial small-bowel obstruction. Spot filming of the terminal ileum shows it to be unremarkable. Impression: 1. There is gastroesophageal reflux demonstrated to above the level of the ally. 2. There are prominent gastric folds in the stomach which may represent gastritis. There is no jewels ulcer identified. 3. Small bowel transit time is rapid as there is contrast seen in the rectum at the 15 minutes film. 1.6 minutes of fluoro time was utilized for this procedure. Reviewed by ROZ Alfaro 04/24/2018 04:08 P Electronically Signed by Celio Osman MD 04/24/2018 04:13 P
== END ==
LOC: M RAD 11:24
PROVIDERS: ATTEND Surgery
DX: R19.7 Diarrhea, unspecified (principal); K21.9 Gastro-esophageal reflux disease without esophagitis

== ENCOUNTER 2018-04-26 09:26 | Day surgery (SDC) | payer MEDICARE, MEDICAID ==
[~2018-04-26] VITALS: Ht 167.6 cm; Wt 79.8 kg
[~2018-04-26 09:26] MED LIST changes: -E-Z-GAS II EFFERVESCENT PACKET (SODIUM BICARB./CITRIC ACID/SIMETHICONE) As Ordered ONE; -E-Z-HD 98% w/w 340GM SUSP BTL As Ordered ONE; -E-Z-PAQUE 96% w/w SUSP 176GM BTL As Ordered ONE; +NS 1,000 ML IV ONE
[2018-04-26] MEDS ORDERED: PROPOFOL 500 MG/50 ML VIAL As Ordered ONE (10:25)
[2018-04-26] MEDS ORDERED: fentaNYL 100 MCG/2 ML INJECTION (J3010) As Ordered ONE (10:25)
--- NOTE | 2018-04-26 12:02 | ROOR ---
Patient Name: Patrick Heaton Procedure Date: 04/26/2018 11:25 AM Date of : 1980 Age: 38 Room: [facility] Gender: Male Note Status: Finalized Procedure: Colonoscopy Indications: Chronic diarrhea Providers: Richie Cano Jr, MD Referring MD: Brigid Taylor NP Requesting Provider: Medicines: Propofol per Anesthesia Complications: No immediate complications. Procedure: Pre-Anesthesia Assessment: - Prior to the procedure, a History and Physical was performed, and patient medications and allergies were reviewed. The patient is competent. The risks and benefits of the procedure and the sedation options and risks were discussed with the patient. All questions were answered and informed consent was obtained. Patient identification and proposed procedure were verified by the physician and the nurse in the pre-procedure area and in the procedure room. Mental Status Examination: alert and oriented. Airway Examination: normal oropharyngeal airway and neck mobility. Respiratory Examination: clear to auscultation. CV Examination: normal. ASA Grade Assessment: II - A patient with mild systemic disease. After reviewing the risks and benefits, the patient was deemed in satisfactory condition to undergo the procedure. The anesthesia plan was to use moderate sedation / analgesia (conscious sedation). Immediately prior to administration of medications, the patient was re-assessed for adequacy to receive sedatives. The heart rate, respiratory rate, oxygen saturations, blood pressure, adequacy of pulmonary ventilation, and response to care were monitored throughout the procedure. The physical status of the patient was re-assessed after the procedure. The Colonoscope was introduced through the anus and advanced to the cecum, identified by appendiceal orifice and ileocecal valve. The colonoscopy was performed without difficulty. The patient tolerated the procedure well. The quality of the bowel preparation was fair. Findings: The ileum appeared normal. Biopsies were taken with a cold forceps for histology. The rectum, recto-sigmoid colon, sigmoid colon, descending colon, transverse colon, ascending colon, cecum, appendiceal orifice and ileocecal valve appeared normal. Biopsies for histology were taken with a cold forceps from the ascending colon, transverse colon, descending colon, sigmoid colon and rectum for evaluation of microscopic colitis. Impression: - Preparation of the colon was fair. - The terminal ileum is normal. Biopsied. - The rectum, recto-sigmoid colon, sigmoid colon, descending colon, transverse colon, ascending colon, cecum, appendiceal orifice and ileocecal valve are normal. Biopsied. Recommendation: - Discharge patient to home (ambulatory). - Repeat colonoscopy (date not yet determined) for screening purposes. - Return to my office in 3 weeks. Richie Cano MD Richie Cano Jr, MD 04/26/2018 12:01:23 PM This report has been signed electronically. Number of Addenda: 0 Note Initiated On: 04/26/2018 11:25 AM Estimated Blood Loss: Estimated blood loss: none.
--- NOTE | 2018-04-26 12:04 | ROOR ---
Patient Name: Patrcik Heaton Procedure Date: 04/26/2018 11:24 AM Date of : 1980 Age: 38 Room: [facility] Gender: Male Note Status: Finalized Procedure: Upper GI endoscopy Indications: Generalized abdominal pain, Suspected esophageal reflux Providers: Richie Cano Jr, MD Referring MD: Brigid Taylor NP Requesting Provider: Medicines: Propofol per Anesthesia Complications: No immediate complications. Procedure: Pre-Anesthesia Assessment: - Prior to the procedure, a History and Physical was performed, and patient medications and allergies were reviewed. The patient is competent. The risks and benefits of the procedure and the sedation options and risks were discussed with the patient. All questions were answered and informed consent was obtained. Patient identification and proposed procedure were verified by the physician and the nurse in the pre-procedure area and in the procedure room. Mental Status Examination: alert and oriented. Airway Examination: normal oropharyngeal airway and neck mobility. Respiratory Examination: clear to auscultation. CV Examination: normal. ASA Grade Assessment: II - A patient with mild systemic disease. After reviewing the risks and benefits, the patient was deemed in satisfactory condition to undergo the procedure. The anesthesia plan was to use moderate sedation / analgesia (conscious sedation). Immediately prior to administration of medications, the patient was re-assessed for adequacy to receive sedatives. The heart rate, respiratory rate, oxygen saturations, blood pressure, adequacy of pulmonary ventilation, and response to care were monitored throughout the procedure. The physical status of the patient was re-assessed after the procedure. The Endoscope was introduced through the mouth, and advanced to the second part of duodenum. The upper GI endoscopy was accomplished without difficulty. The patient tolerated the procedure well. Findings: The upper third of the esophagus, middle third of the esophagus, lower third of the esophagus and gastroesophageal junction were normal. The cardia, gastric fundus, prepyloric region of the stomach and pylorus were normal. Diffuse moderate inflammation characterized by congestion (edema), erythema, friability and granularity was found in the gastric body and in the gastric antrum. Biopsies were taken with a cold forceps for histology. The duodenal bulb, first portion of the duodenum and second portion of the duodenum were normal. Biopsies for histology were taken with a cold forceps for evaluation of celiac disease. Impression: - Normal upper third of esophagus, middle third of esophagus, lower third of esophagus and gastroesophageal junction. - Normal cardia, gastric fundus, prepyloric region of the stomach and pylorus. - Gastritis. Biopsied. - Normal duodenal bulb, first portion of the duodenum and second portion of the duodenum. Biopsied. Recommendation: - Discharge patient to home (ambulatory). - Return to my office in 3 weeks. Richie Cano MD Richie Cano Jr, MD 04/26/2018 12:03:59 PM This report has been signed electronically. Number of Addenda: 0 Note Initiated On: 04/26/2018 11:24 AM Estimated Blood Loss: Estimated blood loss: none.
[2018-04-26 12:24] VITALS: BP 118/84
== END 2018-04-26 12:34 | disposition home or self-care (01) ==
LOC: M OPP 09:26
PROVIDERS: ATTEND Surgery
DX: K52.9 Noninfective gastroenteritis and colitis, unspecified (principal); K29.70 Gastritis, unspecified, without bleeding; R10.84 Generalized abdominal pain; G47.30 Sleep apnea, unspecified; I10 Essential (primary) hypertension; Z79.899 Other long term (current) drug therapy; F17.210 Nicotine dependence, cigarettes, uncomplicated
CPT/HCPCS: 43239; 45380; 88305; J3010

== ENCOUNTER → 2018-05-30 | Outpatient (CLI) | payer MEDICARE, MEDICAID ==
[~2018-05-30] MED LIST changes: -NS 1,000 ML IV ONE
[2018-05-30 10:43] LABS: BASO % 0.5 % (0.0-1.0); EOS # 0.1 10^3/uL (0.0-0.50); EOS % 1.4 % (0.0-3.0); HEMATOCRIT 49.6 % (42.0-52.0); HEMOGLOBIN 17.2 g/dl (13.5-17.5); LYMPH # 1.9 10^3/uL (1.5-4.5); LYMPH % 28.8 % (24.0-44.0); MEAN CORPUSCULAR HEMOGLOBIN 32.5 pg (27.0-33.0); MEAN CORPUSCULAR HGB CONC 34.7 g/dl (32.0-36.5); MEAN CORPUSCULAR VOLUME 93.6 fl (80.0-96.0); MONO # 0.6 10^3/uL (0.0-0.8); MONO % 8.8 % (0.0-5.0); PLATELET COUNT, AUTOMATED 170 10^3/uL (150-450); WHITE BLOOD COUNT 6.6 10^3/uL (4.0-10.0)
[2018-05-30 11:28] LABS: ALBUMIN 4.2 GM/DL (3.2-5.2); ALT/SGPT 22 U/L (12-78); BILIRUBIN,TOTAL 0.4 MG/DL (0.2-1.0); BLOOD UREA NITROGEN 13 MG/DL (7-18); CALCIUM LEVEL 9.4 MG/DL (8.5-10.1); CARBON DIOXIDE LEVEL 30 MEQ/L (21-32); CHLORIDE LEVEL 105 MEQ/L (98-107); CREATININE FOR GFR 0.82 MG/DL (0.70-1.30); GLOMERULAR FILTRATION RATE > 60.0 (>60); GLUCOSE, FASTING 92 MG/DL (70-100); SODIUM LEVEL 143 MEQ/L (136-145); TOTAL PROTEIN 7.1 GM/DL (6.4-8.2); VALPROIC ACID (DEPAKOTE) 61.8 UG/ML (50.0-100.0)
== END ==
LOC: M LAB 09:42
PROVIDERS: ATTEND Physician Assistant
DX: F31.62 Bipolar disorder, current episode mixed, moderate (principal)

== ENCOUNTER → 2018-05-30 | Outpatient (CLI) | payer MEDICARE, MEDICAID ==
[2018-05-30 11:36] LABS: ALBUMIN 4.2 GM/DL (3.2-5.2); ALT/SGPT 23 U/L (12-78); BILIRUBIN,TOTAL 0.4 MG/DL (0.2-1.0); BLOOD UREA NITROGEN 13 MG/DL (7-18); CALCIUM LEVEL 9.1 MG/DL (8.5-10.1); CARBON DIOXIDE LEVEL 29 MEQ/L (21-32); CHLORIDE LEVEL 106 MEQ/L (98-107); CHOLESTEROL LEVEL 171 MG/DL (<200); CHOLESTEROL RISK RATIO 3.166 (<5); CREATININE FOR GFR 0.84 MG/DL (0.70-1.30); GLOMERULAR FILTRATION RATE > 60.0 (>60); GLUCOSE, FASTING 94 MG/DL (70-100); HDL CHOLESTEROL 54 MG/DL (>40); LDL CHOLESTEROL 76 MG/DL (<100); NON-HDL-C 117 MG/DL; POTASSIUM SERUM 3.8 MEQ/L (3.5-5.1); SODIUM LEVEL 143 MEQ/L (136-145); TOTAL PROTEIN 7.2 GM/DL (6.4-8.2); TRIGLYCERIDES LEVEL 203 MG/DL (<150)
== END ==
LOC: M LAB 09:36
PROVIDERS: ATTEND Nurse Practitioner Family
DX: E78.5 Hyperlipidemia, unspecified (principal); F31.62 Bipolar disorder, current episode mixed, moderate

== ENCOUNTER → 2018-08-01 | Outpatient (CLI) | payer MEDICARE, MEDICAID ==
[~2018-08-01] MED LIST changes: -/ADVA50050 INH; -/MIRT15TA OR; +ADVA1AER2 INH; +DEPA500T2 PO; +MIRT1TAB20 OR; +PRIMIDONE; -QUET30XR OR; +SERO300T20 OR; +ZOFR4TAB16 PO; +propranolol
--- NOTE | 2018-08-18 23:51 | ECWPNPC ---
PATIENT NAME: OBED RAO : 1980 GENDER: MALE VISIT DATE: 08/01/2018 DISCHARGE DATE: 08/01/18 1652 VISIT LOCKED DATE TIME: PHYSICIAN: ANGELINA HERNANDEZ MD RESOURCE: ANGELINA HERNANDEZ MD REASON FOR APPOINTMENT 1. SCROTUM HISTORY OF PRESENT ILLNESS HISTORY OF PRESENT ILLNESS: PAIN THE PATIENT DESCRIBES THE PAIN... 38 YEAR OLD MALE PATIENT WITH A HISTORY OF CHRONIC TESTICULAR PAIN. THE PATIENT DESCRIBES THE PAIN ACHING, BURNING, TENDER, SHARP, SHOOTING, AND CONTINUOUS WITH A PAIN SCORE OF 9-10/10 DEPENDING ON PHYSICAL ACTIVITY. THE PATIENT SAYS THE PAIN IS MAINLY LOCATED IN HIS LEFT TESTICLE. THE PATIENT IS CURRENTLY USING CYMBALTA 30MG TO AID IN PAIN RELIEF. PATIENT DENIES UNEXPLAINABLE WEIGHT LOSS, FEVER, CHILLS, NEW CHANGES ON HIS URINARY OR BOWEL CONTROL. FALL RISK SCREENING: SCREENING :NO FALLS REPORTED IN THE LAST YEAR CURRENT MEDICATIONS TAKING PROPRANOLOL HCL 20 MG TABLET 1 TABLET ORALLY TWICE A DAY TAKING PRIMIDONE 50 MG TABLET 2 TABS ORALLY PO BID TAKING SIMVASTATIN 40 MG TABLET 1 TABLET IN THE EVENING ORALLY ONCE A DAY TAKING DEPAKOTE ER 500 MG TABLET EXTENDED RELEASE 24 HOUR 3 TABS ORALLY DAILY TAKING ZOLMITRIPTAN 5 MG TABLET 1 TABLET NEEDED ONE TIME ORALLY ONCE A DAY TAKING VITAMIN C 500 MG TABLET CHEWABLE 1 TABLET ORALLY ONCE A DAY- OTC TAKING AYR SALINE NASAL NETI RINSE 1.57 GM PACKET DIRECTED NASALLY DAILY TAKING ALBUTEROL SULFATE HFA 108 (90 BASE) MCG/ACT AEROSOL SOLUTION 2 PUFFS NEEDED INHALATION EVERY 6 HRS TAKING EXCEDRIN TENSION HEADACHE 500-65 MG TABLET 2 TABLETS NEEDED ORALLY THREE TIMES A DAY, NOTES: PRN TAKING OMEPRAZOLE 40 MG CAPSULE DELAYED RELEASE 1 CAPSULE ORALLY ONCE A DAY TAKING FLONASE ALLERGY RELIEF 50 MCG/ACT SUSPENSION 1 SPRAY IN EACH NOSTRIL NASALLY ONCE A DAY TAKING CETIRIZINE HCL 10 MG TABLET 1 TABLET ORALLY ONCE A DAY TAKING CYMBALTA 30 MG CAPSULE DELAYED RELEASE PARTICLES 1 CAPSULE ORALLY FOR PAIN DAILY TAKING NICOTROL 10 MG INHALER 1 CARTRIDGE NEEDED INHALATION 16 TIME(S) A DAY NOT-TAKING KEFLEX 500 MG CAPSULE 1 CAPSULE ORALLY EVERY 12 HRS MEDICATION LIST REVIEWED AND RECONCILED WITH THE PATIENT PAST MEDICAL HISTORY HIGH CHOLESTEROL BIPOLAR ADHD ALLERGIES ASTHMA SLEEP APNEA 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 COLONOSCOPY 03/2018: MILD NONSPECIFIC CHRONIC INFLAMMATION NOTED ON BIOPSY, NO ACTIVE COLITIS, DYSPLASIA OR GRANULOMA IDENTIFIED EGD 03/2018: MILD CHRONIC GASTRITIS NOTED ON BIOPSY, NO H-PYLORI RIANNA: MANAGED BY NEUROLOGY SCROTAL PAIN ALLERGIES SEASONAL ALLERGIES: SNEEZING, COUGHING - ALLERGY SURGICAL HISTORY PERIANAL ABCESS X2 - MIHIR, DR DEMARCO SCHAFER 10/2015 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 - MIHIR, (?REACTION TO DYE) 12/2015 R SHOULDER ROTATOR CUFF, SOS 2017 ALL UPPER TEETH EXT, TAI DENTAL, 2018 VASECTOMY- [facility]/UROLOGY, WITH SEVERE SCAR TISSUE 2018 ENDOSCOPY UPPER AND LOWER, WITH BX-SMC, ADDITIONAL TESTING 03/2018 FAMILY HISTORY FATHER: 80 YRS, DIAGNOSED WITH CANCER MOTHER: ALIVE 54 YRS, HYPERTENSION SIBLINGS: UNKNOWN SON(S): ALIVE DAUGHTER(S): ALIVE 1 YRS PATERNAL GRAND FATHER: UNKNOWN PATERNAL GRAND MOTHER: UNKNOWN MATERNAL GRAND FATHER: 65 YRS, HEART DISEASE, DIABETES, HYPERTENSION MATERNAL GRAND MOTHER: 68 YRS, HYPERTENSION, HEART DISEASE - HTN, HIGH CHOLESTEROL, ALLERGIES, ASTHMA, 1YR DAUGHTER, 1MONTH OLD SON- NO KNOWN RAGHAVENDRA ISSUES, MATERNAL GRANDPARENTS- GRANDMOTHER 65, DM, HEART, CHOLESTEROL, HTN, PARKINSONS,GRANDFATHER- 68 HEART DISEASE, HTN, NADIA CHOLESTEROL, COUGH-THROAT CLOSING-ISSUES. SOCIAL HISTORY GENERAL: TOBACCO USE ARE YOU A:CURRENT SMOKER HOW OFTEN DO YOU SMOKE CIGARETTES?EVERY DAY HOW SOON AFTER YOU WAKE UP DO YOU SMOKE YOUR FIRST CIGARETTE?31-60 MIN HOW MANY CIGARETTES A DAY DO YOU SMOKE?6-10 ARE YOU INTERESTED IN QUITTING?READY TO QUIT PATIENT COUNSELED ON THE DANGERS OF TOBACCO USE AND URGED TO QUIT:04/03/2018 COUNSELED THE PATIENT ON TOBACCO USE, CESSATION [id number]/05/2019 SMOKING CESSATION INFORMATION GIVEN04/03/2018 PREVIOUS QUIT ATTEMPTS?YES, WITHIN THE LAST 6 MONTHS. HIV / HEP-C SCREENING HIV TEST OFFERED TO PATIENT:YES DATE OFFERED:05/01/2017 TEST ACCEPTED:NO REASON:PATIENT DECLINED OTHERS AT HOME: ALONE. EDUCATION LEVEL OF EDUCATION:HIGH SCHOOL DIET: REGULAR. LANGUAGE LANGUAGES SPOKEN:HUNGARIAN DOMESTIC VIOLENCE DO YOU FEEL SAFE IN YOUR ENVIRONMENT?YES RECREATIONAL DRUG USE DRUG USE?NO EXERCISE: DAILY, WALKS. LEARNING BARRIERS / SPECIAL NEEDS CHANGE FROM LAST VISIT?NO BARRIERS TO LEARNING?NO HEARING IMPAIRED?NO VISION IMPAIRED?YES COGNITIVELY IMPAIRED?NO :CORRECTIVE LENSES READINESS TO LEARN?YES LEARNING PREFERENCES?NO LEARNING CAPABILITIES PRESENT?YES EMOTIONAL BARRIERS?NO SPECIAL DEVICES?NO UPPER MARKER NEEDED?NO PAIN CLINIC PFS, CLERGY, PUBLIC HEALTH REFERRALS HAS THE PATIENT BEEN EDUCATED REGARDING HIS/HER PLAN OF CARE?YES HAS THE PATIENT BEEN EDUCATED REGARDING PAIN, THE RISK FOR PAIN, THE IMPORTANCE OF EFFECTIVE PAIN MANAGEMENT, AND THE PAIN ASSESSMENT PROCESS?YES LATEX QUESTIONNAIRE LATEX ALLERGY : HAVE YOU EVER DEVELOPED ANY TYPE OF REACTION AFTER HANDLING LATEX PRODUCTS SUCH RUBBER GLOVES, CONDOMS, DIAPHRAGMS, BALLOONS, SOCKS, OR UNDERWEAR?NO LATEX ALLERGY : HAVE YOU EVER DEVELOPED ANY TYPE OF REACTION DURING OR AFTER DENTAL APPOINTMENT, VAGINAL/RECTAL EXAMINATION, SURGICAL PROCEDURE, OR ANY OTHER EXPOSURE?NO DATE ASKED : 06/27/2018 LATEX RISK : HAVE YOU EVER HAD ANY DIFFICULTY BREATHING OR HIVES AFTER EATING OR HANDLING ANY FRUITS, OR VEGETABLES; SUCH KIWI, BANANAS, STONE FRUITS, OR CHESTNUTSNO LATEX RISK : DO YOU HAVE A PREVIOUS PERSONAL HISTORY OF MORE THAN NINE SURGERIES, SPINA BIFIDA, OR REPEATED CATHERTIZATIONS? YES - PLEASE INDICATE : > 9 SURGERIES LATEX RISK : ARE YOU FREQUENTLY EXPOSED TO LATEX PRODUCTS IN YOUR OCCUPATION?NO CAFFEINE CAFFEINE USE?NO PEPSI 3 BOTTLES A DAY ADVANCE DIRECTIVE ADVANCE DIRECTIVE DISCUSSED WITH PATIENT:NO PT DOES NOT HAVE HCP AND DECLINES INFO AND ASSISTANCE AT THIS TIME 06/29/18 HOAHAOISM [id number] NONE MARITAL STATUS: SINGLE. ALCOHOL SCREENING DID YOU HAVE A DRINK CONTAINING ALCOHOL IN THE PAST YEAR?YES HOW OFTEN DID YOU HAVE SIX OR MORE DRINKS ON ONE OCCASION IN THE PAST YEAR?NEVER (0 POINTS) HOW MANY DRINKS DID YOU HAVE ON A TYPICAL DAY WHEN YOU WERE DRINKING IN THE PAST YEAR?1 OR 2 (0 POINTS) HOW OFTEN DID YOU HAVE A DRINK CONTAINING ALCOHOL IN THE PAST YEAR?MONTHLY OR LESS (1 POINT) POINTS1 INTERPRETATIONNEGATIVE OCCUPATION: UNEMPLOYED. SEXUAL HX HAD SEX IN THE LAST 12 MONTHS (VAGINAL, ORAL, OR ANAL)?YES WITHWOMEN ONLY PREVENTION STRATEGIES DISCUSSED:OTHER USE PROTECTION?NO HAVE YOU EVER HAD AN STD?NO REVIEWED WITH PT 06/29/18 1250 BV. HOSPITALIZATION/MAJOR DIAGNOSTIC PROCEDURE SURIGCAL RELATED SMC CELLULITIS RIGHT GROIN WITH ABSCESS 10/06-10/09/17 REVIEW OF SYSTEMS REVIEWED BY: PROVIDER: ANGELINA HERNANDEZ MD . CONSTITUTIONAL: ANY CHANGE IN YOUR MEDICAL CONDITION? NO . CHILLS NO . FEVER NO . INFECTION: DO YOU HAVE NEW INFECTIONS? NO . DO YOU HAVE HISTORY OF MRSA? NO . MUSCULOSKELETAL: ANY NEW PATTERNS OF PAIN OR NUMBNESS? NO . GASTROENTEROLOGY: ANY NEW CHANGE IN BOWEL CONTROL? NO . GENITOURINARY: ANY NEW CHANGE IN BLADDER CONTROL? NO . IS THERE A CHANCE YOU COULD BE ? NO . HEMATOLOGY/LYMPH: DO YOU TAKE ANY BLOOD THINNERS? (FOR EXAMPLE- COUMADIN, PLAVIX, AGGRENOX, PLATEL, PRADAXA, OR XARELTO) NO . WHEN WAS YOUR LAST DOSE? DATE: TIME: . NEUROLOGY: HAVE YOU FALLEN IN THE PAST 12 MONTHS? NO . ANY NEW EXTREMITY NUMBNESS OR WEAKNESS? NO . CARDIOLOGY: DO YOU HAVE A PACEMAKER OR DEFIBRILLATOR? NO . RESPIRATORY: HAVE YOU BEEN SICK IN THE PAST WEEK? NO . FEVER NO . FLU LIKE SYMPTOMS? NO . COUGH NO . INTEGUMENTARY: DO YOU HAVE ANY RASHES OR OPEN SORES? NO . ALLERGIC/IMMUNO: ARE YOU ALLERGIC TO IV DYE? NO . ANY NEW ALLERGIES? NO . PSYCHIATRIC: DO YOU HAVE THOUGHTS OF HURTING YOURSELF OR SOMEONE ELSE? NO . ARE YOU ABUSED, NEGLECTED, OR IN AN UNSAFE ENVIRONMENT? NO . ENDOCRINOLOGY: ARE YOU DIABETIC? NO . OTHER: DO YOU NEED ANY PRESCRIPTIONS? NO . IF YES, PLEASE LIST: ____ . ANY NEW PROBLEMS WITH YOUR MEDICATIONS? NO . WHEN DID YOU LAST EAT? ____ . WHEN DID YOU LAST DRINK? ____ . WHAT DID YOU LAST DRINK? ____ . NAME OF PERSON DRIVING YOU HOME? ____ . DO YOU HAVE ANY OTHER QUESTIONS OR CONCERNS NO . VITAL SIGNS WT 195.2 LBS, HT 65 IN, BMI 32.48 INDEX, BP 135/83 MM HG, HR 89 /MIN, RR 18 /MIN, TEMP 98.0 F, OXYGEN SAT % 96%, NA INITIALS SC 14:52, REVIEWED BY: DOMENICO. EXAMINATION GENERAL EXAMINATION: PATIENT IS ALERT O X 3 AND COOPERATIVE. ASSESSMENTS LEFT TESTICULAR PAIN - N50.812 (PRIMARY) NEURALGIA - M79.2 TREATMENT LEFT TESTICULAR PAIN CLINICAL NOTES: WE DISCUSSED SEVERAL ISSUES WITH MR. RAO'S PAIN MANAGEMENT CASE. I WILL INCREASE THE PATIENT'S CYMBALTA TO 30MG TWICE PER DAY TO SEE IF THAT HELPS CONTROL HIS PAIN. THE PATIENT WILL FOLLOW UP IN THE NEXT FEW WEEKS. INSTRUCTIONS WERE GIVEN, QUESTIONS WERE ANSWERED, PATIENT REPORTS UNDERSTANDING AND AGREES WITH THE PLAN. I, MAYE MITCHELL, DOCUMENTED THE ABOVE INFORMATION ACTING A SCRIBE FOR DR. HERNANDEZ. I HAVE REVIEWED THE ABOVE DOCUMENT, WRITTEN BY MAYE BARBOSAIBRobbie AND I VERIFY THAT IT IS ACCURATE. . OTHERS REFILL CYMBALTA CAPSULE DELAYED RELEASE PARTICLES, 30 MG, 1 CAPSULE, ORALLY FOR PAIN, BID FOR PAIN, 30 DAY(S), 60, REFILLS 1 PROCEDURE CODES FA211 ESTABILISHED PATIENT [facility] FACILITY CHARGE [id number] CURRENT MEDS W/DOSAGES DOCUMENTED G8730 PAIN ASSESS POS TOOL F/U PLAN DOC DISPOSITION & COMMUNICATION FOLLOW UP 3 WEEKS ELECTRONICALLY SIGNED BY ANGELINA HERNANDEZ MD, ON 08/18/2018 AT 04:11 PM EDT DISCLAIMER : THIS IS A VISIT SUMMARY EXTRACTED FROM THE [employer] CHART. IT IS NOT A COPY OF THE [employer] PROGRESS NOTE. MARY
== END ==
LOC: M PAIN 14:30
PROVIDERS: ATTEND Anesthesiology
DX: N50.812 Left testicular pain (principal); G89.29 Other chronic pain; M79.2 Neuralgia and neuritis, unspecified; E78.00 Pure hypercholesterolemia, unspecified; Z86.59 Personal history of other mental and behavioral disorders; J45.909 Unspecified asthma, uncomplicated; G47.33 Obstructive sleep apnea (adult) (pediatric); F17.210 Nicotine dependence, cigarettes, uncomplicated; Z79.899 Other long term (current) drug therapy

== ENCOUNTER → 2018-08-21 | Outpatient (CLI) | payer MEDICARE, MEDICAID ==
[~2018-08-21] MED LIST changes: +DULO1CAP3; +SUCR1TAB56
--- NOTE | 2018-08-21 13:47 | REP ---
Clinical: Testicular pain. Technique: Real time salas scale and color Doppler evaluation using linear high frequency transducer. Findings: The bilateral testicles and epididymi are relatively normal in contour, size, echogenicity, and vascularity. No intratesticular mass lesion, infectious/inflammatory process, or torsion is appreciated. Small simple and likely insignificant hydroceles are noted along with incidental epididymal head cysts measuring up to 3.6 mm in the left epididymis and 1.5 mm in the right epididymis. Left-sided varicoceles are noted measuring up to 5.1 mm on Valsalva. Right testicle measures 5.0 x 2.7 x 3.2 cm. Left testicle measures 5.0 x 2.8 x 3.0 cm. Impression: 1. Left-sided varicoceles measuring up to 5.1 mm on Valsalva. 2. Very small likely incidental bilateral hydroceles and small epididymal head cysts. Electronically Signed by Emerson Herrera MD 08/21/2018 01:39 P
== END ==
LOC: M RAD 09:45
PROVIDERS: ATTEND Specialist
DX: N50.819 Testicular pain, unspecified (principal); N43.3 Hydrocele, unspecified; N50.3 Cyst of epididymis

== ENCOUNTER 2018-08-22 20:06 | Emergency (ER) | payer MEDICARE, MEDICAID ==
[~2018-08-22] VITALS: Ht 167.6 cm; Wt 86.4 kg
[~2018-08-22 20:06] MED LIST changes: -DULO1CAP3; -SUCR1TAB56
[2018-08-22 20:46] LABS: BASO % 0.2 % (0.0-1.0); EOS # 0.1 10^3/uL (0.0-0.50); EOS % 0.8 % (0.0-3.0); HEMOGLOBIN 16.9 g/dl (13.5-17.5); LYMPH # 2.9 10^3/uL (1.5-4.5); LYMPH % 23.7 % (24.0-44.0); MEAN CORPUSCULAR HEMOGLOBIN 33.6 pg (27.0-33.0); MEAN CORPUSCULAR VOLUME 93.4 fl (80.0-96.0); MONO % 8.1 % (0.0-5.0); NEUTROPHILS # 8.1 10^3/uL (1.8-7.7); NEUTROPHILS % 66.9 % (36.0-66.0); PLATELET COUNT, AUTOMATED 180 10^3/uL (150-450); RED BLOOD COUNT 5.03 10^6/uL (4.30-6.10); WHITE BLOOD COUNT 12.2 10^3/uL (4.0-10.0)
[2018-08-22] MEDS ORDERED: SUCR1TAB56 (21:20)
[2018-08-22] MEDS ORDERED: DULO1CAP3 (21:20)
[2018-08-22 21:21] LABS: ALBUMIN 3.9 GM/DL (3.2-5.2); ALT/SGPT 26 U/L (12-78); BILIRUBIN,DIRECT < 0.1 MG/DL (0.0-0.2); BILIRUBIN,TOTAL 0.3 MG/DL (0.2-1.0); BLOOD UREA NITROGEN 10 MG/DL (7-18); CALCIUM LEVEL 8.8 MG/DL (8.5-10.1); CARBON DIOXIDE LEVEL 28 MEQ/L (21-32); CHLORIDE LEVEL 105 MEQ/L (98-107); GLOMERULAR FILTRATION RATE > 60.0 (>60); GLUCOSE, FASTING 101 MG/DL (70-100); LIPASE 110 U/L (73-393); POTASSIUM SERUM 3.6 MEQ/L (3.5-5.1); SODIUM LEVEL 141 MEQ/L (136-145); TOTAL PROTEIN 7.3 GM/DL (6.4-8.2)
[2018-08-22] MEDS ORDERED: HALOPERIDOL 5 MG/ML VIAL (J1630) IV ONE (22:15)
[2018-08-22] MEDS ORDERED: ONDANSETRON 4MG/2ML VIAL (J2405) IV ONE (22:15)
[2018-08-22] MEDS ORDERED: ISOVUE-370 76% 100ML VIAL (Q9967) As Ordered ONE (22:38)
--- NOTE | 2018-08-22 22:58 | REP ---
Clinical: Acute right lower quadrant pain. Technique: Axial contrast enhanced images from the lung bases to the pubic symphysis using 100 ml Isovue 370 intravenous contrast material with coronal and sagittal re-formations. Comparison: 12/19/2017 Findings: Lung bases are clear. Visualized heart and pericardium normal. Liver, spleen, pancreas, gallbladder, bilateral adrenal glands and kidneys are normal. The enteric system is without obstruction or acute inflammatory process. Normal terminal ileum and appendix identified in the right lower quadrant. Pelvis demonstrates normal bladder and age appropriate prostate/seminal vesicles. No ascites. No free air. No adenopathy. Abdominal aorta without aneurysm or dissection. Musculoskeletal structures are intact. Impression: Normal CT of the abdomen and pelvis. Normal right lower quadrant and appendix identified. No free fluid, focal inflammatory stranding, or adenopathy. Electronically Signed by Emerson Herrera MD 08/22/2018 10:49 P
[2018-08-22 23:03] VITALS: BP 134/73
== END 2018-08-22 23:19 | disposition home or self-care (01) ==
LOC: M ED 20:06
DX: R10.9 Unspecified abdominal pain (principal); Z72.0 Tobacco use; Z79.899 Other long term (current) drug therapy
CPT/HCPCS: 36415; 74177; 80048; 80076; 81001; 83690; 85025; 96374; 96375; 99284; J1630; J2405; Q9967

== ENCOUNTER → 2018-09-06 | Outpatient (CLI) | payer MEDICARE, MEDICAID ==
[~2018-09-06] MED LIST changes: +DULO1CAP3; +SUCR1TAB56
--- NOTE | 2018-09-15 23:14 | ECWPNPC ---
PATIENT NAME: OBED RAO : 1980 GENDER: MALE VISIT DATE: 09/06/2018 DISCHARGE DATE: 09/06/18 1601 VISIT LOCKED DATE TIME: PHYSICIAN: ANGELINA HERNANDEZ MD RESOURCE: ANGELINA HERNANDEZ MD REASON FOR APPOINTMENT 1. FOLLOW UP TESTICULAR PAIN HISTORY OF PRESENT ILLNESS HISTORY OF PRESENT ILLNESS: PAIN THE PATIENT DESCRIBES THE PAIN... 38 YEAR OLD MALE PATIENT WITH A HISTORY OF CHRONIC TESTICULAR PAIN. THE PATIENT DESCRIBES THE PAIN ACHING, BURNING, STABBING, SHOOTING, SORE, TENDER, SHARP, AND CONTINUOUS WITH A PAIN SCORE OF 5-8/10 DEPENDING ON PHYSICAL ACTIVITY AND MEDICATION USE. THE PATIENT STATES THE PAIN IS ON BOTH SIDES, BUT EXPERIENCES MORE PAIN ON THE LEFT SIDE. THE PATIENT IS USING CYMBALTA 60 MG 1 TABLET DAILY. THE PATIENT SAYS CYMBALTA HELPS REDUCE THE PAIN AND HE IS DOING BETTER. FALL RISK SCREENING: SCREENING :NO FALLS REPORTED IN THE LAST YEAR CURRENT MEDICATIONS TAKING PROPRANOLOL HCL 20 MG TABLET 1 TABLET ORALLY TWICE A DAY TAKING PRIMIDONE 50 MG TABLET 2 TABS ORALLY PO BID TAKING DEPAKOTE ER 500 MG TABLET EXTENDED RELEASE 24 HOUR 3 TABS ORALLY DAILY TAKING ZOLMITRIPTAN 5 MG TABLET 1 TABLET NEEDED ONE TIME ORALLY ONCE A DAY TAKING VITAMIN C 500 MG TABLET CHEWABLE 1 TABLET ORALLY ONCE A DAY- OTC TAKING AYR SALINE NASAL NETI RINSE 1.57 GM PACKET DIRECTED NASALLY DAILY TAKING ALBUTEROL SULFATE HFA 108 (90 BASE) MCG/ACT AEROSOL SOLUTION 2 PUFFS NEEDED INHALATION EVERY 6 HRS TAKING EXCEDRIN TENSION HEADACHE 500-65 MG TABLET 2 TABLETS NEEDED ORALLY THREE TIMES A DAY, NOTES: PRN TAKING OMEPRAZOLE 40 MG CAPSULE DELAYED RELEASE 1 CAPSULE ORALLY ONCE A DAY TAKING FLONASE ALLERGY RELIEF 50 MCG/ACT SUSPENSION 1 SPRAY IN EACH NOSTRIL NASALLY ONCE A DAY TAKING CETIRIZINE HCL 10 MG TABLET 1 TABLET ORALLY ONCE A DAY TAKING NICOTROL 10 MG INHALER 1 CARTRIDGE NEEDED INHALATION 16 TIME(S) A DAY TAKING CYMBALTA 60 MG CAPSULE DELAYED RELEASE PARTICLES 1 CAPSULE ORALLY FOR PAIN DAILY TAKING SIMVASTATIN 40 MG TABLET 1 TABLET IN THE EVENING ORALLY ONCE A DAY NOT-TAKING KEFLEX 500 MG CAPSULE 1 CAPSULE ORALLY EVERY 12 HRS MEDICATION LIST REVIEWED AND RECONCILED WITH THE PATIENT PAST MEDICAL HISTORY HIGH CHOLESTEROL BIPOLAR ADHD ALLERGIES ASTHMA SLEEP APNEA 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 COLONOSCOPY 03/2018: MILD NONSPECIFIC CHRONIC INFLAMMATION NOTED ON BIOPSY, NO ACTIVE COLITIS, DYSPLASIA OR GRANULOMA IDENTIFIED EGD 03/2018: MILD CHRONIC GASTRITIS NOTED ON BIOPSY, NO H-PYLORI RINANA: MANAGED BY NEUROLOGY SCROTAL PAIN ALLERGIES SEASONAL ALLERGIES: SNEEZING, COUGHING - ALLERGY SURGICAL HISTORY PERIANAL ABCESS X2 - MIHIR, DR DEMARCO SCHAFER 10/2015 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 - MIHIR, (?REACTION TO DYE) 12/2015 R SHOULDER ROTATOR CUFF, SOS 2017 ALL UPPER TEETH EXT, TAI DENTAL, 2018 VASECTOMY- [facility]/UROLOGY, WITH SEVERE SCAR TISSUE 2018 ENDOSCOPY UPPER AND LOWER, WITH BX-[facility], ADDITIONAL TESTING 03/2018 FAMILY HISTORY FATHER: 80 YRS, DIAGNOSED WITH CANCER MOTHER: ALIVE 54 YRS, HYPERTENSION SIBLINGS: UNKNOWN SON(S): ALIVE DAUGHTER(S): ALIVE 1 YRS PATERNAL GRAND FATHER: UNKNOWN PATERNAL GRAND MOTHER: UNKNOWN MATERNAL GRAND FATHER: 65 YRS, DIABETES, HYPERTENSION, HEART DISEASE MATERNAL GRAND MOTHER: 68 YRS, HEART DISEASE, HYPERTENSION - HTN, HIGH CHOLESTEROL, ALLERGIES, ASTHMA, 1YR DAUGHTER, 1MONTH OLD SON- NO KNOWN RAGHAVENDRA ISSUES, MATERNAL GRANDPARENTS- GRANDMOTHER 65, DM, HEART, CHOLESTEROL, HTN, PARKINSONS,GRANDFATHER- 68 HEART DISEASE, HTN, NADIA CHOLESTEROL, COUGH-THROAT CLOSING-ISSUES. SOCIAL HISTORY GENERAL: TOBACCO USE ARE YOU A:CURRENT SMOKER ARE YOU INTERESTED IN QUITTING?READY TO QUIT PATIENT STATES HE IS CURRENTLY TRYING TO QUIT. PREVIOUS QUIT ATTEMPTS?YES, WITHIN THE LAST 6 MONTHS. COUNSELED THE PATIENT ON TOBACCO USE, CESSATION [id number] HOW MANY CIGARETTES A DAY DO YOU SMOKE?6-10 HOW SOON AFTER YOU WAKE UP DO YOU SMOKE YOUR FIRST CIGARETTE?31-60 MIN HOW OFTEN DO YOU SMOKE CIGARETTES?EVERY DAY PATIENT COUNSELED ON THE DANGERS OF TOBACCO USE AND URGED TO QUIT:09/06/2018 SMOKING CESSATION INFORMATION GIVEN04/03/2018 HIV / HEP-C SCREENING HIV TEST OFFERED TO PATIENT:YES DATE OFFERED:05/01/2017 TEST ACCEPTED:NO REASON:PATIENT DECLINED OTHERS AT HOME: ALONE. EDUCATION LEVEL OF EDUCATION:HIGH SCHOOL DIET: REGULAR. LANGUAGE LANGUAGES SPOKEN:KYRGYZ DOMESTIC VIOLENCE DO YOU FEEL SAFE IN YOUR ENVIRONMENT?YES RECREATIONAL DRUG USE DRUG USE?NO EXERCISE: DAILY, WALKS. LEARNING BARRIERS / SPECIAL NEEDS CHANGE FROM LAST VISIT?NO BARRIERS TO LEARNING?NO HEARING IMPAIRED?NO VISION IMPAIRED?YES COGNITIVELY IMPAIRED?NO :CORRECTIVE LENSES READINESS TO LEARN?YES LEARNING PREFERENCES?NO LEARNING CAPABILITIES PRESENT?YES EMOTIONAL BARRIERS?NO SPECIAL DEVICES?NO FINANCIAL DEALERS NEEDED?NO PAIN CLINIC PFS, CLERGY, PUBLIC HEALTH REFERRALS HAS THE PATIENT BEEN EDUCATED REGARDING HIS/HER PLAN OF CARE?YES HAS THE PATIENT BEEN EDUCATED REGARDING PAIN, THE RISK FOR PAIN, THE IMPORTANCE OF EFFECTIVE PAIN MANAGEMENT, AND THE PAIN ASSESSMENT PROCESS?YES LATEX QUESTIONNAIRE LATEX ALLERGY : HAVE YOU EVER DEVELOPED ANY TYPE OF REACTION AFTER HANDLING LATEX PRODUCTS SUCH RUBBER GLOVES, CONDOMS, DIAPHRAGMS, BALLOONS, SOCKS, OR UNDERWEAR?NO LATEX ALLERGY : HAVE YOU EVER DEVELOPED ANY TYPE OF REACTION DURING OR AFTER DENTAL APPOINTMENT, VAGINAL/RECTAL EXAMINATION, SURGICAL PROCEDURE, OR ANY OTHER EXPOSURE?NO LATEX RISK : HAVE YOU EVER HAD ANY DIFFICULTY BREATHING OR HIVES AFTER EATING OR HANDLING ANY FRUITS, OR VEGETABLES; SUCH KIWI, BANANAS, STONE FRUITS, OR CHESTNUTSNO LATEX RISK : DO YOU HAVE A PREVIOUS PERSONAL HISTORY OF MORE THAN NINE SURGERIES, SPINA BIFIDA, OR REPEATED CATHERTIZATIONS? YES - PLEASE INDICATE : > 9 SURGERIES LATEX RISK : ARE YOU FREQUENTLY EXPOSED TO LATEX PRODUCTS IN YOUR OCCUPATION?NO DATE ASKED : 06/27/2018 CAFFEINE CAFFEINE USE?NO PEPSI 3 BOTTLES A DAY ADVANCE DIRECTIVE ADVANCE DIRECTIVE DISCUSSED WITH PATIENT:YES PT DOES NOT HAVE HCP AND DECLINES INFO AND ASSISTANCE AT THIS TIME. ISLAM [id number] NONE MARITAL STATUS: SINGLE. ALCOHOL SCREENING DID YOU HAVE A DRINK CONTAINING ALCOHOL IN THE PAST YEAR?YES HOW OFTEN DID YOU HAVE SIX OR MORE DRINKS ON ONE OCCASION IN THE PAST YEAR?NEVER (0 POINTS) HOW MANY DRINKS DID YOU HAVE ON A TYPICAL DAY WHEN YOU WERE DRINKING IN THE PAST YEAR?1 OR 2 (0 POINTS) HOW OFTEN DID YOU HAVE A DRINK CONTAINING ALCOHOL IN THE PAST YEAR?MONTHLY OR LESS (1 POINT) POINTS1 INTERPRETATIONNEGATIVE OCCUPATION: UNEMPLOYED. SEXUAL HX HAD SEX IN THE LAST 12 MONTHS (VAGINAL, ORAL, OR ANAL)?YES WITHWOMEN ONLY PREVENTION STRATEGIES DISCUSSED:OTHER USE PROTECTION?NO HAVE YOU EVER HAD AN STD?NO REVIEWED WITH PT 06/29/18 1250 BVREVIEWED WITH PATIENT 09/06/18 1532 JS. HOSPITALIZATION/MAJOR DIAGNOSTIC PROCEDURE SURIGCAL RELATED [facility] CELLULITIS RIGHT GROIN WITH ABSCESS 10/06-10/09/17 REVIEW OF SYSTEMS REVIEWED BY: PROVIDER: ANGELINA HERNANDEZ MD . CONSTITUTIONAL: ANY CHANGE IN YOUR MEDICAL CONDITION? NO . CHILLS NO . FEVER NO . INFECTION: DO YOU HAVE NEW INFECTIONS? NO . DO YOU HAVE HISTORY OF MRSA? NO . MUSCULOSKELETAL: ANY NEW PATTERNS OF PAIN OR NUMBNESS? NO . GASTROENTEROLOGY: ANY NEW CHANGE IN BOWEL CONTROL? NO . GENITOURINARY: ANY NEW CHANGE IN BLADDER CONTROL? NO . IS THERE A CHANCE YOU COULD BE ? NO . HEMATOLOGY/LYMPH: DO YOU TAKE ANY BLOOD THINNERS? (FOR EXAMPLE- COUMADIN, PLAVIX, AGGRENOX, PLATEL, PRADAXA, OR XARELTO) NO . WHEN WAS YOUR LAST DOSE? DATE: TIME: . NEUROLOGY: HAVE YOU FALLEN IN THE PAST 12 MONTHS? NO . ANY NEW EXTREMITY NUMBNESS OR WEAKNESS? NO . CARDIOLOGY: DO YOU HAVE A PACEMAKER OR DEFIBRILLATOR? NO . RESPIRATORY: HAVE YOU BEEN SICK IN THE PAST WEEK? NO . FEVER NO . FLU LIKE SYMPTOMS? NO . COUGH NO . INTEGUMENTARY: DO YOU HAVE ANY RASHES OR OPEN SORES? NO . ALLERGIC/IMMUNO: ARE YOU ALLERGIC TO IV DYE? NO . ANY NEW ALLERGIES? NO . PSYCHIATRIC: DO YOU HAVE THOUGHTS OF HURTING YOURSELF OR SOMEONE ELSE? NO . ARE YOU ABUSED, NEGLECTED, OR IN AN UNSAFE ENVIRONMENT? NO . ENDOCRINOLOGY: ARE YOU DIABETIC? NO . OTHER: DO YOU NEED ANY PRESCRIPTIONS? NO . IF YES, PLEASE LIST: ____ . ANY NEW PROBLEMS WITH YOUR MEDICATIONS? NO . WHEN DID YOU LAST EAT? ____ . WHEN DID YOU LAST DRINK? ____ . WHAT DID YOU LAST DRINK? ____ . NAME OF PERSON DRIVING YOU HOME? ____ . DO YOU HAVE ANY OTHER QUESTIONS OR CONCERNS NO . VITAL SIGNS WT 195.2 LBS, HT 65 IN, BMI 32.48 INDEX, BP 141/88 MM HG, HR 86 /MIN, RR 18 /MIN, TEMP 98.1 F, OXYGEN SAT % 96%, SAFE IN ENV? (Y/N) YES, NA INITIALS AW 1452, REVIEWED BY: JS. EXAMINATION GENERAL EXAMINATION: PATIENT IS ALERT O X 3 AND COOPERATIVE. ASSESSMENTS TESTICULAR PAIN - N50.819 (PRIMARY) TREATMENT TESTICULAR PAIN CLINICAL NOTES: WE DISCUSSED SEVERAL ISSUES WITH MR. RAO'S PAIN MANAGEMENT CASE. THE PATIENT IS DOING BETTER WITH CYMBALTA 60 MG 1 TABLET DAILY AND WILL CONTINUE WITH THIS MEDICATION. I REFILLED THE CYMBALTA AND WILL START THE PATIENT ON GABAPENTIN 100 MG TO INCREASE SLOWLY UP TO 3 TIMES DAILY. I GAVE THE PATIENT A MEDICATION SCHEDULE TO FOLLOW FOR SLOWLY INCREASING THE GABAPENTIN IN ORDER TO AVOID ANY ADVERSE SIDE EFFECTS. THE PATIENT WILL FOLLOW UP IN 1 MONTH. INSTRUCTIONS WERE GIVEN, QUESTIONS WERE ANSWERED, PATIENT REPORTS UNDERSTANDING AND AGREES WITH THE PLAN. I, NABILA BEAULIEU, DOCUMENTED THE ABOVE INFORMATION ACTING A SCRIBE FOR DR. HERNANDEZ. I HAVE REVIEWED THE ABOVE DOCUMENT, WRITTEN BY NABILA BEAULIEU SCRIBE AND I VERIFY THAT IT IS ACCURATE. . OTHERS START GABAPENTIN CAPSULE, 100 MG, 1 CAPSULE, ORALLY, TID, 30 DAY(S), 90 CAPSULE, REFILLS 1 CONTINUE CYMBALTA CAPSULE DELAYED RELEASE PARTICLES, 60 MG, 1 CAPSULE, ORALLY FOR PAIN, DAILY, 30 DAYS, 30 CAPSULE, REFILLS 1 PREVENTIVE MEDICINE PAIN CLINIC TEACHING: MEDICATIONS GABAPENTIN HANDOUT PRINTED, REVIEWED AND GIVEN TO PT. EM. PROCEDURE CODES FA211 ESTABILISHED PATIENT [facility] FACILITY CHARGE G8427 CURRENT MEDS W/DOSAGES DOCUMENTED G8730 PAIN ASSESS POS TOOL F/U PLAN DOC DISPOSITION & COMMUNICATION FOLLOW UP 4 WEEKS (REASON: MEDS) ELECTRONICALLY SIGNED BY ANGELINA HERNANDEZ MD, MD ON 09/15/2018 AT 06:24 PM EDT DISCLAIMER : THIS IS A VISIT SUMMARY EXTRACTED FROM THE [facility] CHART. IT IS NOT A COPY OF THE [employer] PROGRESS NOTE. MARY
== END ==
LOC: M PAIN 15:00
PROVIDERS: ATTEND Anesthesiology
DX: N50.819 Testicular pain, unspecified (principal); G89.29 Other chronic pain; E78.00 Pure hypercholesterolemia, unspecified; Z86.59 Personal history of other mental and behavioral disorders; J45.909 Unspecified asthma, uncomplicated; G47.33 Obstructive sleep apnea (adult) (pediatric); Z86.19 Personal history of other infectious and parasitic diseases; F17.210 Nicotine dependence, cigarettes, uncomplicated; Z79.899 Other long term (current) drug therapy

== ENCOUNTER → 2018-09-28 | Outpatient (CLI) | payer MEDICARE, MEDICAID ==
[~2018-09-28] MED LIST changes: -DULO1CAP3; +DULO1CAP6
[2018-09-28 11:13] LABS: BASO % 0.3 % (0.0-1.0); EOS # 0.3 10^3/uL (0.0-0.50); EOS % 3.1 % (0.0-3.0); HEMATOCRIT 48.3 % (42.0-52.0); HEMOGLOBIN 17.3 g/dl (13.5-17.5); LYMPH # 2.5 10^3/uL (1.5-4.5); LYMPH % 23.8 % (24.0-44.0); MEAN CORPUSCULAR HEMOGLOBIN 33.5 pg (27.0-33.0); MEAN CORPUSCULAR HGB CONC 35.8 g/dl (32.0-36.5); MEAN CORPUSCULAR VOLUME 93.4 fl (80.0-96.0); MONO % 9.5 % (0.0-5.0); NEUTROPHILS # 6.6 10^3/uL (1.8-7.7); NEUTROPHILS % 62.9 % (36.0-66.0); PLATELET COUNT, AUTOMATED 172 10^3/uL (150-450); RED BLOOD COUNT 5.17 10^6/uL (4.30-6.10); WHITE BLOOD COUNT 10.5 10^3/uL (4.0-10.0)
[2018-09-28 11:35] LABS: ALBUMIN 4.2 GM/DL (3.2-5.2); ALT/SGPT 30 U/L (12-78); BILIRUBIN,TOTAL 0.6 MG/DL (0.2-1.0); BLOOD UREA NITROGEN 9 MG/DL (7-18); CARBON DIOXIDE LEVEL 28 MEQ/L (21-32); CHLORIDE LEVEL 104 MEQ/L (98-107); CREATININE FOR GFR 1.01 MG/DL (0.70-1.30); GLOMERULAR FILTRATION RATE > 60.0 (>60); GLUCOSE, FASTING 96 MG/DL (70-100); POTASSIUM SERUM 3.5 MEQ/L (3.5-5.1); SODIUM LEVEL 140 MEQ/L (136-145); TOTAL PROTEIN 7.5 GM/DL (6.4-8.2)
== END ==
LOC: M LAB 10:46
PROVIDERS: ATTEND Otolaryngology
DX: J01.90 Acute sinusitis, unspecified (principal)

== ENCOUNTER → 2018-10-19 | Outpatient (CLI) | payer MEDICARE, MEDICAID ==
--- NOTE | 2018-10-31 00:23 | ECWPNPC ---
PATIENT NAME: OBED RAO : 1980 GENDER: MALE VISIT DATE: 10/19/2018 DISCHARGE DATE: 10/19/18 1416 VISIT LOCKED DATE TIME: PHYSICIAN: ANGELINA HERNANDEZ MD RESOURCE: ANGELINA HERNANDEZ MD REASON FOR APPOINTMENT 1. 4 WEEKS, MEDS HISTORY OF PRESENT ILLNESS HISTORY OF PRESENT ILLNESS: PAIN THE PATIENT DESCRIBES THE PAIN... 38 YEAR OLD MALE PATIENT WITH A HISTORY OF CHRONIC TESTICULAR PAIN. THE PATIENT DESCRIBES THE PAIN ACHING, BURNING, SORE, TENDER, SHARP, STABBING, SHOOTING, AND CONTINUOUS WITH A PAIN SCORE OF 5-9/10 DEPENDING ON PHYSICAL ACTIVITY. THE PATIENT IS CURRENTLY USING CYMBALTA 30 MG TWICE DAILY AND STARTED GABAPENTIN 100 MG ONCE NIGHTLY, WHICH HE SAYS HE TAKES GABAPENTIN AT NIGHT DUE TO SLEEPINESS DURING THE DAY. THE PATIENT STATES HIS MEDICATION IS HELPING HIM CONTROL HIS PAIN SOME, HOWEVER HE IS STILL UNCOMFORTABLE FROM THE PAIN. THE PATIENT SAYS THE PAIN IS AFFECTING HIS ABILITY TO PERFORM HIS DAILY ACTIVITIES SUCH GR[employer] SHOPPING AND CLEANING AND WORKING AT HIS HOUSE. PATIENT DENIES UNEXPLAINABLE WEIGHT LOSS, FEVER, CHILLS, NEW CHANGES ON HIS URINARY OR BOWEL CONTROL. FALL RISK SCREENING: SCREENING :NO FALLS REPORTED IN THE LAST YEAR CURRENT MEDICATIONS TAKING CYMBALTA 30 MG CAPSULE DELAYED RELEASE PARTICLES 2 ORALLY DAILY TAKING PROPRANOLOL HCL 20 MG TABLET 1 TABLET ORALLY TWICE A DAY TAKING PRIMIDONE 50 MG TABLET 1 ORALLY PO BID TAKING DEPAKOTE ER 500 MG TABLET EXTENDED RELEASE 24 HOUR 4 TABS ORALLY DAILY TAKING ZOLMITRIPTAN 5 MG TABLET 1 TABLET NEEDED ONE TIME ORALLY ONCE A DAY TAKING VITAMIN C 500 MG TABLET CHEWABLE 1 TABLET ORALLY ONCE A DAY- OTC TAKING AYR SALINE NASAL NETI RINSE 1.57 GM PACKET DIRECTED NASALLY DAILY TAKING ALBUTEROL SULFATE HFA 108 (90 BASE) MCG/ACT AEROSOL SOLUTION 2 PUFFS NEEDED INHALATION EVERY 6 HRS TAKING EXCEDRIN TENSION HEADACHE 500-65 MG TABLET 2 TABLETS NEEDED ORALLY THREE TIMES A DAY, NOTES: PRN TAKING NICOTROL 10 MG INHALER 1 CARTRIDGE NEEDED INHALATION 16 TIME(S) A DAY TAKING OMEPRAZOLE 40 MG CAPSULE DELAYED RELEASE 1 CAPSULE ORALLY ONCE A DAY TAKING SIMVASTATIN 40 MG TABLET 1 TABLET IN THE EVENING ORALLY ONCE A DAY TAKING FLONASE ALLERGY RELIEF 50 MCG/ACT SUSPENSION 1 SPRAY IN EACH NOSTRIL NASALLY ONCE A DAY TAKING CETIRIZINE HCL 10 MG TABLET 1 TABLET ORALLY ONCE A DAY TAKING SUCRALFATE 1 GM TABLET ORAL TAKING PERCOCET 10-325 MG TABLET 1 TABLET NEEDED ORALLY EVERY 6 HRS, NOTES: FOR SINUS SURGERY TAKING GABAPENTIN 100 MG CAPSULE 1 CAPSULE ORALLY TID, NOTES: MAKES HIM SLEEPY TAKING 1 AT BEDTIME NOT-TAKING KEFLEX 500 MG CAPSULE 1 CAPSULE ORALLY EVERY 12 HRS MEDICATION LIST REVIEWED AND RECONCILED WITH THE PATIENT PAST MEDICAL HISTORY HIGH CHOLESTEROL BIPOLAR ADHD ALLERGIES ASTHMA SLEEP APNEA 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 COLONOSCOPY 03/2018: MILD NONSPECIFIC CHRONIC INFLAMMATION NOTED ON BIOPSY, NO ACTIVE COLITIS, DYSPLASIA OR GRANULOMA IDENTIFIED EGD 03/2018: MILD CHRONIC GASTRITIS NOTED ON BIOPSY, NO H-PYLORI RIANNA: MANAGED BY NEUROLOGY SCROTAL PAIN ED- FOLLOWING WITH UROLOGY MIHIR VARICOSE VIENS TESTICLES- UROLOGY MIHIR ALLERGIES SEASONAL ALLERGIES: SNEEZING, COUGHING - ALLERGY SURGICAL HISTORY PERIANAL ABCESS X2 - MIHIR, DR DEMARCO SCHAFER 10/2015 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 - MIHIR, (?REACTION TO DYE) 12/2015 R SHOULDER ROTATOR CUFF, SOS 2017 ALL UPPER TEETH EXT, TAI DENTAL, 2018 VASECTOMY- [facility]/UROLOGY, WITH SEVERE SCAR TISSUE 2018 ENDOSCOPY UPPER AND LOWER, WITH BX-[facility], ADDITIONAL TESTING 03/2018 SINUS SURGERY- [facility] FAMILY HISTORY FATHER: 80 YRS, DIAGNOSED WITH CANCER MOTHER: ALIVE 54 YRS, HYPERTENSION SIBLINGS: UNKNOWN SON(S): ALIVE DAUGHTER(S): ALIVE 1 YRS PATERNAL GRAND FATHER: UNKNOWN PATERNAL GRAND MOTHER: UNKNOWN MATERNAL GRAND FATHER: 65 YRS, DIABETES, HYPERTENSION, HEART DISEASE MATERNAL GRAND MOTHER: 68 YRS, HYPERTENSION, HEART DISEASE - HTN, HIGH CHOLESTEROL, ALLERGIES, ASTHMA, 1YR DAUGHTER, 1MONTH OLD SON- NO KNOWN RAGHAVENDRA ISSUES, MATERNAL GRANDPARENTS- GRANDMOTHER 65, DM, HEART, CHOLESTEROL, HTN, PARKINSONS,GRANDFATHER- 68 HEART DISEASE, HTN, NADIA CHOLESTEROL, COUGH-THROAT CLOSING-ISSUES. SOCIAL HISTORY GENERAL: TOBACCO USE ARE YOU A:FORMER SMOKER SMOKING CESSATION INFORMATION GIVEN04/03/2018 HIV / HEP-C SCREENING HIV TEST OFFERED TO PATIENT:YES DATE OFFERED:05/01/2017 TEST ACCEPTED:NO REASON:PATIENT DECLINED OTHERS AT HOME: ALONE. EDUCATION LEVEL OF EDUCATION:HIGH SCHOOL DIET: REGULAR. LANGUAGE LANGUAGES SPOKEN:KINYARWANDA DOMESTIC VIOLENCE DO YOU FEEL SAFE IN YOUR ENVIRONMENT?YES RECREATIONAL DRUG USE DRUG USE?NO EXERCISE: DAILY, WALKS. LEARNING BARRIERS / SPECIAL NEEDS CHANGE FROM LAST VISIT?NO BARRIERS TO LEARNING?NO HEARING IMPAIRED?NO VISION IMPAIRED?YES COGNITIVELY IMPAIRED?NO :CORRECTIVE LENSES READINESS TO LEARN?YES LEARNING PREFERENCES?NO LEARNING CAPABILITIES PRESENT?YES EMOTIONAL BARRIERS?NO SPECIAL DEVICES?NO BOILER RIVETER NEEDED?NO PAIN CLINIC PFS, CLERGY, PUBLIC HEALTH REFERRALS HAS THE PATIENT BEEN EDUCATED REGARDING HIS/HER PLAN OF CARE?YES HAS THE PATIENT BEEN EDUCATED REGARDING PAIN, THE RISK FOR PAIN, THE IMPORTANCE OF EFFECTIVE PAIN MANAGEMENT, AND THE PAIN ASSESSMENT PROCESS?YES LATEX QUESTIONNAIRE LATEX ALLERGY : HAVE YOU EVER DEVELOPED ANY TYPE OF REACTION AFTER HANDLING LATEX PRODUCTS SUCH RUBBER GLOVES, CONDOMS, DIAPHRAGMS, BALLOONS, SOCKS, OR UNDERWEAR?NO LATEX ALLERGY : HAVE YOU EVER DEVELOPED ANY TYPE OF REACTION DURING OR AFTER DENTAL APPOINTMENT, VAGINAL/RECTAL EXAMINATION, SURGICAL PROCEDURE, OR ANY OTHER EXPOSURE?NO LATEX RISK : HAVE YOU EVER HAD ANY DIFFICULTY BREATHING OR HIVES AFTER EATING OR HANDLING ANY FRUITS, OR VEGETABLES; SUCH KIWI, BANANAS, STONE FRUITS, OR CHESTNUTSNO LATEX RISK : DO YOU HAVE A PREVIOUS PERSONAL HISTORY OF MORE THAN NINE SURGERIES, SPINA BIFIDA, OR REPEATED CATHERIZATIONS? YES - PLEASE INDICATE : > 9 SURGERIES LATEX RISK : ARE YOU FREQUENTLY EXPOSED TO LATEX PRODUCTS IN YOUR OCCUPATION?NO DATE ASKED : 06/27/2018 CAFFEINE CAFFEINE USE?NO PEPSI 3 BOTTLES A DAY ADVANCE DIRECTIVE ADVANCE DIRECTIVE DISCUSSED WITH PATIENT:YES PT DOES NOT HAVE HCP AND DECLINES INFO AND ASSISTANCE AT THIS TIME. MORMONISM [id number] NONE MARITAL STATUS: SINGLE. ALCOHOL SCREENING DID YOU HAVE A DRINK CONTAINING ALCOHOL IN THE PAST YEAR?YES HOW OFTEN DID YOU HAVE SIX OR MORE DRINKS ON ONE OCCASION IN THE PAST YEAR?NEVER (0 POINTS) HOW MANY DRINKS DID YOU HAVE ON A TYPICAL DAY WHEN YOU WERE DRINKING IN THE PAST YEAR?1 OR 2 (0 POINTS) HOW OFTEN DID YOU HAVE A DRINK CONTAINING ALCOHOL IN THE PAST YEAR?MONTHLY OR LESS (1 POINT) POINTS1 INTERPRETATIONNEGATIVE OCCUPATION: UNEMPLOYED. SEXUAL HX HAD SEX IN THE LAST 12 MONTHS (VAGINAL, ORAL, OR ANAL)?YES WITHWOMEN ONLY PREVENTION STRATEGIES DISCUSSED:OTHER USE PROTECTION?NO HAVE YOU EVER HAD AN STD?NO REVIEWED WITH PT 06/29/18 1250 BVREVIEWED WITH PATIENT 09/06/18 1532 JS. HOSPITALIZATION/MAJOR DIAGNOSTIC PROCEDURE SURIGCAL RELATED [facility] CELLULITIS RIGHT GROIN WITH ABSCESS 10/06-10/09/17 REVIEW OF SYSTEMS REVIEWED BY: PROVIDER: ANGELINA HERNANDEZ MD . CONSTITUTIONAL: ANY CHANGE IN YOUR MEDICAL CONDITION? NO . CHILLS NO . FEVER NO . INFECTION: DO YOU HAVE NEW INFECTIONS? NO . DO YOU HAVE HISTORY OF MRSA? NO . MUSCULOSKELETAL: ANY NEW PATTERNS OF PAIN OR NUMBNESS? NO . GASTROENTEROLOGY: ANY NEW CHANGE IN BOWEL CONTROL? NO . GENITOURINARY: ANY NEW CHANGE IN BLADDER CONTROL? NO . IS THERE A CHANCE YOU COULD BE ? NO . HEMATOLOGY/LYMPH: DO YOU TAKE ANY BLOOD THINNERS? (FOR EXAMPLE- COUMADIN, PLAVIX, AGGRENOX, PLATEL, PRADAXA, OR XARELTO) NO . WHEN WAS YOUR LAST DOSE? DATE: TIME: . NEUROLOGY: HAVE YOU FALLEN IN THE PAST 12 MONTHS? NO . ANY NEW EXTREMITY NUMBNESS OR WEAKNESS? NO . CARDIOLOGY: DO YOU HAVE A PACEMAKER OR DEFIBRILLATOR? NO . RESPIRATORY: HAVE YOU BEEN SICK IN THE PAST WEEK? NO . FEVER NO . FLU LIKE SYMPTOMS? NO . COUGH NO . INTEGUMENTARY: DO YOU HAVE ANY RASHES OR OPEN SORES? NO . ALLERGIC/IMMUNO: ARE YOU ALLERGIC TO IV DYE? NO . ANY NEW ALLERGIES? NO . PSYCHIATRIC: DO YOU HAVE THOUGHTS OF HURTING YOURSELF OR SOMEONE ELSE? NO . ARE YOU ABUSED, NEGLECTED, OR IN AN UNSAFE ENVIRONMENT? NO . ENDOCRINOLOGY: ARE YOU DIABETIC? NO . OTHER: DO YOU NEED ANY PRESCRIPTIONS? NO . IF YES, PLEASE LIST: ____ . ANY NEW PROBLEMS WITH YOUR MEDICATIONS? NO . WHEN DID YOU LAST EAT? ____ . WHEN DID YOU LAST DRINK? ____ . WHAT DID YOU LAST DRINK? ____ . NAME OF PERSON DRIVING YOU HOME? ____ . DO YOU HAVE ANY OTHER QUESTIONS OR CONCERNS NO . VITAL SIGNS WT 195.4 LBS, HT 65 IN, BMI 32.51 INDEX, BP 135/83 MM HG, HR 80 /MIN, RR 18 /MIN, TEMP 97.4 F, OXYGEN SAT % 97%, NA INITIALS [id number], REVIEWED BY: KG. EXAMINATION GENERAL EXAMINATION: PATIENT IS ALERT O X 3 AND COOPERATIVE. ASSESSMENTS TESTICULAR PAIN - N50.819 (PRIMARY) LOW BACK PAIN - M54.5 OTHER CHRONIC PAIN - G89.29 TREATMENT TESTICULAR PAIN CLINICAL NOTES: WE DISCUSSED SEVERAL ISSUES WITH MR. RAO'S PAIN MANAGEMENT CASE. THE PATIENT WILL CONTINUE WITH HIS CURRENT MEDICATION REGIMEN, WHICH I REFILLED THE CYMBALTA 60 MG AND GABAPENTIN 100 MG TODAY. THE PATIENT IS INTERESTED IN PURSUING A DCS TRIAL AND WOULD LIKE TO MOVE FORWARD WITH THE REQUIREMENTS. THEREFORE, I AM REFERRING THE PATIENT TO BE SEEN FOR A PSYCHOLOGICAL EVALUATION FOR THE DCS TRIAL AND IMPLANT. THE PATIENT WILL FOLLOW UP IN 2 MONTHS. INSTRUCTIONS WERE GIVEN, QUESTIONS WERE ANSWERED, PATIENT REPORTS UNDERSTANDING AND AGREES WITH THE PLAN. I, NABILA BEAULIEU, DOCUMENTED THE ABOVE INFORMATION ACTING A SCRIBE FOR DR. HERNANDEZ. I HAVE REVIEWED THE ABOVE DOCUMENT, WRITTEN BY NABILA BEAULIEU SCRIBRobbie AND I VERIFY THAT IT IS ACCURATE. . OTHERS REFILL CYMBALTA CAPSULE DELAYED RELEASE PARTICLES, 60 MG, 1 CAPSULE, ORALLY FOR PAIN, DAILY, 30 DAYS, 30 CAPSULE, REFILLS 2 REFILL GABAPENTIN CAPSULE, 100 MG, 1 CAPSULE, ORALLY FOR PAIN, TID, 30 DAYS, 90 CAPSULE, REFILLS 2, NOTES: MAKES HIM SLEEPY TAKING 1 AT BEDTIME PROCEDURE CODES FA211 ESTABILISHED PATIENT [facility] FACILITY CHARGE G8427 CURRENT MEDS W/DOSAGES DOCUMENTED G8730 PAIN ASSESS POS TOOL F/U PLAN DOC DISPOSITION & COMMUNICATION FOLLOW UP 2 MONTHS (REASON: REFER FOR PSYCH EVAL) ELECTRONICALLY SIGNED BY ANGELINA HERNANDEZ MD, MD ON 10/30/2018 AT 01:19 PM EDT DISCLAIMER : THIS IS A VISIT SUMMARY EXTRACTED FROM THE [employer] CHART. IT IS NOT A COPY OF THE [employer] PROGRESS NOTE. MTDD
== END ==
LOC: M PAIN 13:00
PROVIDERS: ATTEND Anesthesiology
DX: N50.819 Testicular pain, unspecified (principal); G89.29 Other chronic pain; M54.5 Low back pain; E78.00 Pure hypercholesterolemia, unspecified; Z86.59 Personal history of other mental and behavioral disorders; J45.909 Unspecified asthma, uncomplicated; G47.33 Obstructive sleep apnea (adult) (pediatric); Z86.19 Personal history of other infectious and parasitic diseases; Z87.891 Personal history of nicotine dependence; Z79.899 Other long term (current) drug therapy

== ENCOUNTER 2018-11-10 21:02 | Emergency (ER) | payer MEDICARE, MEDICAID ==
[~2018-11-10] VITALS: Ht 167.6 cm; Wt 90.4 kg
[2018-11-10] MEDS ORDERED: GABA-1171 (21:09)
[2018-11-10] MEDS ORDERED: BACT800T5 PO (22:52)
[2018-11-10] MEDS ORDERED: BACTRIM 160MG/800MG DS TAB PO ONE (23:00)
[2018-11-10 23:27] VITALS: BP 137/78
== END 2018-11-11 01:22 | disposition home or self-care (01) ==
LOC: M ED 21:02
DX: L03.90 Cellulitis, unspecified (principal); J45.909 Unspecified asthma, uncomplicated; G47.33 Obstructive sleep apnea (adult) (pediatric); F31.9 Bipolar disorder, unspecified; Z79.899 Other long term (current) drug therapy; Z87.2 Personal history of diseases of the skin and subcutaneous tissue

== ENCOUNTER → 2019-01-02 | Outpatient (CLI) | payer MEDICARE, MEDICAID ==
[~2019-01-02] MED LIST changes: +AMPH1CAP16 PO; -AMPH20CA PO; +GABA-1171; -OMEP40CA2 PO; +OMEP40CA97 PO; +ZOLM5TAB14 SL; -ZOLM5TAB2 SL
--- NOTE | 2019-01-16 00:40 | ECWPNPC ---
PATIENT NAME: OBED RAO : 1980 GENDER: MALE VISIT DATE: 01/02/2019 DISCHARGE DATE: 01/02/19 1639 VISIT LOCKED DATE TIME: PHYSICIAN: ANGELINA HERNANDEZ MD RESOURCE: ANGELINA HERNANDEZ MD HISTORY OF PRESENT ILLNESS HISTORY OF PRESENT ILLNESS: PAIN THE PATIENT DESCRIBES THE PAIN... 38 YEAR OLD MALE PATIENT WITH A HISTORY OF CHRONIC BILATERAL TESTICULAR PAIN. THE PATIENT DESCRIBES THE PAIN ACHING, BURNING, SORE, TENDER, SHARP, STABBING, SHOOTING, DAILY, AND CONTINUOUS WITH A PAIN SCORE OF 5-10/10 DEPENDING ON PHYSICAL ACTIVITY. THE PATIENT STATES HIS PAIN IS ON BOTH SIDES, BUT WORSE ON THE LEFT SIDE. THE PATIENT SAYS HE IS USING CYMBALTA 60 MG AND GABAPENTIN 100 MG 3 TIMES DAILY, WHICH IS HELPING WITH SOME OF HIS PAIN, HOWEVER IT IS NOT ENOUGH. THE PATIENT EXPRESSES INTEREST IN THE DCS TRIAL AND IS WAITING TO GO TO THE PSYCHOLOGICAL EVALUATION THE FIRST STEP. PATIENT DENIES UNEXPLAINABLE WEIGHT LOSS, FEVER, CHILLS, NEW CHANGES ON HIS URINARY OR BOWEL CONTROL. FALL RISK SCREENING: SCREENING :NO FALLS REPORTED IN THE LAST YEAR CURRENT MEDICATIONS TAKING CYMBALTA 60 MG CAPSULE DELAYED RELEASE PARTICLES 1 CAPSULE ORALLY FOR PAIN DAILY TAKING GABAPENTIN 100 MG CAPSULE 1 CAPSULE ORALLY FOR PAIN TID, NOTES: MAKES HIM SLEEPY TAKING 1 AT BEDTIME TAKING PROPRANOLOL HCL 20 MG TABLET 1 TABLET ORALLY TWICE A DAY TAKING PRIMIDONE 50 MG TABLET 1 ORALLY PO BID TAKING DEPAKOTE ER 500 MG TABLET EXTENDED RELEASE 24 HOUR 4 TABS ORALLY DAILY TAKING VITAMIN C 500 MG TABLET CHEWABLE 1 TABLET ORALLY ONCE A DAY- OTC TAKING EXCEDRIN TENSION HEADACHE 500-65 MG TABLET 2 TABLETS NEEDED ORALLY THREE TIMES A DAY, NOTES: PRN TAKING NICOTROL 10 MG INHALER 1 CARTRIDGE NEEDED INHALATION 16 TIME(S) A DAY TAKING OMEPRAZOLE 40 MG CAPSULE DELAYED RELEASE 1 CAPSULE ORALLY ONCE A DAY TAKING SIMVASTATIN 40 MG TABLET 1 TABLET IN THE EVENING ORALLY ONCE A DAY TAKING FLONASE ALLERGY RELIEF 50 MCG/ACT SUSPENSION 1 SPRAY IN EACH NOSTRIL NASALLY ONCE A DAY TAKING CETIRIZINE HCL 10 MG TABLET 1 TABLET ORALLY ONCE A DAY NOT-TAKING ZOLMITRIPTAN 5 MG TABLET 1 TABLET NEEDED ONE TIME ORALLY ONCE A DAY NOT-TAKING AYR SALINE NASAL NETI RINSE 1.57 GM PACKET DIRECTED NASALLY DAILY NOT-TAKING ALBUTEROL SULFATE HFA 108 (90 BASE) MCG/ACT AEROSOL SOLUTION 2 PUFFS NEEDED INHALATION EVERY 6 HRS NOT-TAKING SUCRALFATE 1 GM TABLET ORAL NOT-TAKING PERCOCET 10-325 MG TABLET 1 TABLET NEEDED ORALLY EVERY 6 HRS, NOTES: FOR SINUS SURGERY NOT-TAKING KEFLEX 500 MG CAPSULE 1 CAPSULE ORALLY EVERY 12 HRS MEDICATION LIST REVIEWED AND RECONCILED WITH THE PATIENT PAST MEDICAL HISTORY HIGH CHOLESTEROL BIPOLAR ADHD ALLERGIES ASTHMA SLEEP APNEA 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 COLONOSCOPY 03/2018: MILD NONSPECIFIC CHRONIC INFLAMMATION NOTED ON BIOPSY, NO ACTIVE COLITIS, DYSPLASIA OR GRANULOMA IDENTIFIED EGD 03/2018: MILD CHRONIC GASTRITIS NOTED ON BIOPSY, NO H-PYLORI RIANNA: MANAGED BY NEUROLOGY SCROTAL PAIN ED- FOLLOWING WITH UROLOGY MIHIR VARICOSE VIENS TESTICLES- UROLOGY CARTJULIANNA ALLERGIES SEASONAL ALLERGIES: SNEEZING, COUGHING - ALLERGY SURGICAL HISTORY PERIANAL ABCESS X2 - MIHIR, DR DEMARCO SCHAFER 10/2015 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 - MIHIR, (?REACTION TO DYE) 12/2015 R SHOULDER ROTATOR CUFF, SOS 2017 ALL UPPER TEETH EXT, TAI DENTAL, 2018 VASECTOMY- [facility]/UROLOGY, WITH SEVERE SCAR TISSUE 2018 ENDOSCOPY UPPER AND LOWER, WITH BX-SMC, ADDITIONAL TESTING 03/2018 SINUS SURGERY- POLYP FAMILY HISTORY FATHER: 80 YRS, DIAGNOSED WITH OTHER MALIGNANT NEOPLASM OF UNSPECIFIED SITE MOTHER: ALIVE 54 YRS, HYPERTENSION SIBLINGS: UNKNOWN SON(S): ALIVE DAUGHTER(S): ALIVE 1 YRS PATERNAL GRAND FATHER: UNKNOWN PATERNAL GRAND MOTHER: UNKNOWN MATERNAL GRAND FATHER: 65 YRS, UNSPECIFIED HEART DISEASE, HYPERTENSION, DIABETES MATERNAL GRAND MOTHER: 68 YRS, HYPERTENSION, UNSPECIFIED HEART DISEASE - HTN, HIGH CHOLESTEROL, ALLERGIES, ASTHMA, 1YR DAUGHTER, 1MONTH OLD SON- NO KNOWN RAGHAVENDRA ISSUES, MATERNAL GRANDPARENTS- GRANDMOTHER 65, DM, HEART, CHOLESTEROL, HTN, PARKINSONS,GRANDFATHER- 68 HEART DISEASE, HTN, NADIA CHOLESTEROL, COUGH-THROAT CLOSING-ISSUES. SOCIAL HISTORY GENERAL: TOBACCO USE ARE YOU A:FORMER SMOKER SMOKING CESSATION INFORMATION GIVEN04/03/2018 HIV / HEP-C SCREENING HIV TEST OFFERED TO PATIENT:YES DATE OFFERED:05/01/2017 TEST ACCEPTED:NO REASON:PATIENT DECLINED OTHERS AT HOME: ALONE. EDUCATION LEVEL OF EDUCATION:HIGH SCHOOL DIET: REGULAR. LANGUAGE LANGUAGES SPOKEN:GUYANESE DOMESTIC VIOLENCE DO YOU FEEL SAFE IN YOUR ENVIRONMENT?YES RECREATIONAL DRUG USE DRUG USE?NO EXERCISE: DAILY, WALKS. LEARNING BARRIERS / SPECIAL NEEDS CHANGE FROM LAST VISIT?NO BARRIERS TO LEARNING?NO HEARING IMPAIRED?NO VISION IMPAIRED?YES COGNITIVELY IMPAIRED?NO :CORRECTIVE LENSES READINESS TO LEARN?YES LEARNING PREFERENCES?NO LEARNING CAPABILITIES PRESENT?YES EMOTIONAL BARRIERS?NO SPECIAL DEVICES?NO SECURITY SUPPORT ANALYST NEEDED?NO PAIN CLINIC PFS, CLERGY, PUBLIC HEALTH REFERRALS HAS THE PATIENT BEEN EDUCATED REGARDING HIS/HER PLAN OF CARE?YES HAS THE PATIENT BEEN EDUCATED REGARDING PAIN, THE RISK FOR PAIN, THE IMPORTANCE OF EFFECTIVE PAIN MANAGEMENT, AND THE PAIN ASSESSMENT PROCESS?YES LATEX QUESTIONNAIRE LATEX ALLERGY : HAVE YOU EVER DEVELOPED ANY TYPE OF REACTION AFTER HANDLING LATEX PRODUCTS SUCH RUBBER GLOVES, CONDOMS, DIAPHRAGMS, BALLOONS, SOCKS, OR UNDERWEAR?NO LATEX ALLERGY : HAVE YOU EVER DEVELOPED ANY TYPE OF REACTION DURING OR AFTER DENTAL APPOINTMENT, VAGINAL/RECTAL EXAMINATION, SURGICAL PROCEDURE, OR ANY OTHER EXPOSURE?NO DATE ASKED : 06/27/2018 LATEX RISK : HAVE YOU EVER HAD ANY DIFFICULTY BREATHING OR HIVES AFTER EATING OR HANDLING ANY FRUITS, OR VEGETABLES; SUCH KIWI, BANANAS, STONE FRUITS, OR CHESTNUTSNO LATEX RISK : DO YOU HAVE A PREVIOUS PERSONAL HISTORY OF MORE THAN NINE SURGERIES, SPINA BIFIDA, OR REPEATED CATHERIZATIONS? YES - PLEASE INDICATE : > 9 SURGERIES LATEX RISK : ARE YOU FREQUENTLY EXPOSED TO LATEX PRODUCTS IN YOUR OCCUPATION?NO CAFFEINE CAFFEINE USE?NO PEPSI 3 BOTTLES A DAY ADVANCE DIRECTIVE ADVANCE DIRECTIVE DISCUSSED WITH PATIENT:YES PT DOES NOT HAVE HCP AND DECLINES INFO AND ASSISTANCE AT THIS TIME. DRUZE [id number] NONE MARITAL STATUS: SINGLE. ALCOHOL SCREENING DID YOU HAVE A DRINK CONTAINING ALCOHOL IN THE PAST YEAR?YES HOW OFTEN DID YOU HAVE SIX OR MORE DRINKS ON ONE OCCASION IN THE PAST YEAR?NEVER (0 POINTS) HOW MANY DRINKS DID YOU HAVE ON A TYPICAL DAY WHEN YOU WERE DRINKING IN THE PAST YEAR?1 OR 2 (0 POINTS) HOW OFTEN DID YOU HAVE A DRINK CONTAINING ALCOHOL IN THE PAST YEAR?MONTHLY OR LESS (1 POINT) POINTS1 INTERPRETATIONNEGATIVE OCCUPATION: UNEMPLOYED. SEXUAL HX HAD SEX IN THE LAST 12 MONTHS (VAGINAL, ORAL, OR ANAL)?YES WITHWOMEN ONLY PREVENTION STRATEGIES DISCUSSED:OTHER USE PROTECTION?NO HAVE YOU EVER HAD AN STD?NO REVIEWED WITH PT 06/29/18 1250 BVREVIEWED WITH PATIENT 09/06/18 5412 JS. HOSPITALIZATION/MAJOR DIAGNOSTIC PROCEDURE SURIGCAL RELATED SMC CELLULITIS RIGHT GROIN WITH ABSCESS 10/06-10/09/17 REVIEW OF SYSTEMS REVIEWED BY: PROVIDER: ANGELINA HERNANDEZ MD . CONSTITUTIONAL: ANY CHANGE IN YOUR MEDICAL CONDITION? NO . CHILLS NO . FEVER NO . INFECTION: DO YOU HAVE NEW INFECTIONS? NO . DO YOU HAVE HISTORY OF MRSA? NO . MUSCULOSKELETAL: ANY NEW PATTERNS OF PAIN OR NUMBNESS? NO . GASTROENTEROLOGY: ANY NEW CHANGE IN BOWEL CONTROL? NO . GENITOURINARY: ANY NEW CHANGE IN BLADDER CONTROL? NO . IS THERE A CHANCE YOU COULD BE ? NO . HEMATOLOGY/LYMPH: DO YOU TAKE ANY BLOOD THINNERS? (FOR EXAMPLE- COUMADIN, PLAVIX, AGGRENOX, PLATEL, PRADAXA, OR XARELTO) NO . WHEN WAS YOUR LAST DOSE? DATE: TIME: . NEUROLOGY: HAVE YOU FALLEN IN THE PAST 12 MONTHS? NO . ANY NEW EXTREMITY NUMBNESS OR WEAKNESS? NO . CARDIOLOGY: DO YOU HAVE A PACEMAKER OR DEFIBRILLATOR? NO . RESPIRATORY: HAVE YOU BEEN SICK IN THE PAST WEEK? NO . FEVER NO . FLU LIKE SYMPTOMS? NO . COUGH NO . INTEGUMENTARY: DO YOU HAVE ANY RASHES OR OPEN SORES? NO . ALLERGIC/IMMUNO: ARE YOU ALLERGIC TO IV DYE? NO . ANY NEW ALLERGIES? NO . PSYCHIATRIC: DO YOU HAVE THOUGHTS OF HURTING YOURSELF OR SOMEONE ELSE? NO . ARE YOU ABUSED, NEGLECTED, OR IN AN UNSAFE ENVIRONMENT? NO . ENDOCRINOLOGY: ARE YOU DIABETIC? NO . OTHER: DO YOU NEED ANY PRESCRIPTIONS? YES, FABIOLA . IF YES, PLEASE LIST: ____ . ANY NEW PROBLEMS WITH YOUR MEDICATIONS? NO . WHEN DID YOU LAST EAT? ____ . WHEN DID YOU LAST DRINK? ____ . WHAT DID YOU LAST DRINK? ____ . NAME OF PERSON DRIVING YOU HOME? ____ . DO YOU HAVE ANY OTHER QUESTIONS OR CONCERNS NO . VITAL SIGNS WT 206.6 LBS, HT 65 IN, BMI 34.38 INDEX, BP 141/88 MM HG, HR 91 /MIN, RR 18 /MIN, TEMP 98.1 F, OXYGEN SAT % 98%, NA INITIALS SC 15:35, REVIEWED BY: EM. EXAMINATION GENERAL EXAMINATION: PATIENT IS ALERT O X 3 AND COOPERATIVE. ASSESSMENTS TESTICULAR PAIN - N50.819 (PRIMARY) NEURALGIA - M79.2 TREATMENT TESTICULAR PAIN CLINICAL NOTES: WE DISCUSSED SEVERAL ISSUES WITH MR. RAO'S PAIN MANAGEMENT CASE. THE PATIENT WILL CONTINUE WITH HIS CURRENT MEDICATION REGIMEN THAT IS HELPING WITH SOME OF HIS PAIN, HOWEVER THE PATIENT SAYS IT IS NOT COVERING ALL OF HIS SEVERE PAIN. THE PATIENT IS WAITING TO COMPLETE HIS PSYCHOLOGICAL EVALUATION AND AFTER COMPLETION, DEPENDING ON THE RESULTS, I WILL ORDER FOR THORACIC AND LUMBAR MRI'S TO BE DONE TO ENSURE THERE IS ADEQUATE SPACE FOR THE DCS CABLES TO PASS THROUGH. THE PATIENT WILL FOLLOW UP WITH THE NURSE PRACTITIONER IN SEVERAL WEEKS. INSTRUCTIONS WERE GIVEN, QUESTIONS WERE ANSWERED, PATIENT REPORTS UNDERSTANDING AND AGREES WITH THE PLAN. I, NABILA BEAULIEU, DOCUMENTED THE ABOVE INFORMATION ACTING A SCRIBE FOR DR. HERNANDEZ. I HAVE REVIEWED THE ABOVE DOCUMENT, WRITTEN BY NABILA MANRIQUEZ AND I VERIFY THAT IT IS ACCURATE. . OTHERS CONTINUE CYMBALTA CAPSULE DELAYED RELEASE PARTICLES, 60 MG, 1 CAPSULE, ORALLY FOR PAIN, DAILY, 30 DAYS, 30 CAPSULE, REFILLS 1 CONTINUE GABAPENTIN CAPSULE, 100 MG, 1 CAPSULE, ORALLY FOR PAIN, TID, 30 DAYS, 90 CAPSULE, REFILLS 1, NOTES: MAKES HIM SLEEPY TAKING 1 AT BEDTIME PROCEDURE CODES FA211 ESTABILISHED PATIENT [facility] FACILITY CHARGE G8427 CURRENT MEDS W/DOSAGES DOCUMENTED G8730 PAIN ASSESS POS TOOL F/U PLAN DOC DISPOSITION & COMMUNICATION FOLLOW UP REASON: F/U W/ RADIOGRAPHIC TECHNOLOGIST ELECTRONICALLY SIGNED BY ANGELINA HERNANDEZ MD, MD ON 01/15/2019 AT 05:40 PM EDT DISCLAIMER : THIS IS A VISIT SUMMARY EXTRACTED FROM THE [employer] CHART. IT IS NOT A COPY OF THE [employer] PROGRESS NOTE. MTDD
== END ==
LOC: M PAIN 15:30
PROVIDERS: ATTEND Anesthesiology
DX: N50.819 Testicular pain, unspecified (principal); M79.2 Neuralgia and neuritis, unspecified; Z86.59 Personal history of other mental and behavioral disorders; J45.909 Unspecified asthma, uncomplicated; G47.33 Obstructive sleep apnea (adult) (pediatric); Z87.891 Personal history of nicotine dependence; Z79.899 Other long term (current) drug therapy

== ENCOUNTER → 2019-02-13 | Outpatient (CLI) | payer MEDICARE, MEDICAID ==
[~2019-02-13] MED LIST changes: -SIMV40TA2 PO; +SIMV40TA20 PO
--- NOTE | 2019-03-06 02:33 | ECWPNPC ---
PATIENT NAME: OBED RAO : 1980 GENDER: MALE VISIT DATE: 02/13/2019 DISCHARGE DATE: 02/13/19 1355 VISIT LOCKED DATE TIME: PHYSICIAN: BROCK QUIGLEY RESOURCE: BROCK QUIGLEY REASON FOR APPOINTMENT 1. PER DR. Chirinos HISTORY OF PRESENT ILLNESS HISTORY OF PRESENT ILLNESS: HERE FOR F/U OF CHRONIC TESTICULAR PAIN.THIS BEGAN LAST YEAR AFTER A VASECTOMY.PAIN IS WORSE IN LEFT GREATER THAN RIGHT TESTICLE.CURRENTLY TAKING CYMBALTA 60MG DAILY AND GAAPENTIN 100MG AT HS. PAIN THE PATIENT DESCRIBES THE PAIN... FALL RISK SCREENING: SCREENING :NO FALLS REPORTED IN THE LAST YEAR CURRENT MEDICATIONS TAKING CYMBALTA 60 MG CAPSULE DELAYED RELEASE PARTICLES 1 CAPSULE ORALLY FOR PAIN DAILY TAKING GABAPENTIN 100 MG CAPSULE 1 CAPSULE ORALLY FOR PAIN TID, NOTES: MAKES HIM SLEEPY TAKING 1 AT BEDTIME TAKING PROPRANOLOL HCL 20 MG TABLET 1 TABLET ORALLY TWICE A DAY TAKING PRIMIDONE 50 MG TABLET 1 ORALLY PO BID TAKING DEPAKOTE ER 500 MG TABLET EXTENDED RELEASE 24 HOUR 4 TABS ORALLY DAILY TAKING VITAMIN C 500 MG TABLET CHEWABLE 1 TABLET ORALLY ONCE A DAY- OTC TAKING EXCEDRIN TENSION HEADACHE 500-65 MG TABLET 2 TABLETS NEEDED ORALLY THREE TIMES A DAY, NOTES: PRN TAKING NICOTROL 10 MG INHALER 1 CARTRIDGE NEEDED INHALATION 16 TIME(S) A DAY TAKING OMEPRAZOLE 40 MG CAPSULE DELAYED RELEASE 1 CAPSULE ORALLY ONCE A DAY TAKING SIMVASTATIN 40 MG TABLET 1 TABLET IN THE EVENING ORALLY ONCE A DAY TAKING FLONASE ALLERGY RELIEF 50 MCG/ACT SUSPENSION 1 SPRAY IN EACH NOSTRIL NASALLY ONCE A DAY TAKING CETIRIZINE HCL 10 MG TABLET 1 TABLET ORALLY ONCE A DAY TAKING MONTELUKAST SODIUM 10 MG TABLET 1 TABLET ORALLY ONCE A DAY NOT-TAKING ZOLMITRIPTAN 5 MG TABLET 1 TABLET NEEDED ONE TIME ORALLY ONCE A DAY NOT-TAKING AYR SALINE NASAL NETI RINSE 1.57 GM PACKET DIRECTED NASALLY DAILY NOT-TAKING ALBUTEROL SULFATE HFA 108 (90 BASE) MCG/ACT AEROSOL SOLUTION 2 PUFFS NEEDED INHALATION EVERY 6 HRS NOT-TAKING SUCRALFATE 1 GM TABLET ORAL NOT-TAKING PERCOCET 10-325 MG TABLET 1 TABLET NEEDED ORALLY EVERY 6 HRS, NOTES: FOR SINUS SURGERY NOT-TAKING KEFLEX 500 MG CAPSULE 1 CAPSULE ORALLY EVERY 12 HRS MEDICATION LIST REVIEWED AND RECONCILED WITH THE PATIENT PAST MEDICAL HISTORY HIGH CHOLESTEROL BIPOLAR ADHD ALLERGIES ASTHMA SLEEP APNEA 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 COLONOSCOPY 03/2018: MILD NONSPECIFIC CHRONIC INFLAMMATION NOTED ON BIOPSY, NO ACTIVE COLITIS, DYSPLASIA OR GRANULOMA IDENTIFIED EGD 03/2018: MILD CHRONIC GASTRITIS NOTED ON BIOPSY, NO H-PYLORI RIANNA: MANAGED BY NEUROLOGY SCROTAL PAIN ED- FOLLOWING WITH UROLOGY CARTDINO VARICOSE VIENS TESTICLES- UROLOGY CARTHAGE ALLERGIES SEASONAL ALLERGIES: SNEEZING, COUGHING - ALLERGY SURGICAL HISTORY PERIANAL ABCESS X2 - MIHIR, DR DEMARCO SCHAFER 10/2015 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 - MIHIR, (?REACTION TO DYE) 12/2015 R SHOULDER ROTATOR CUFF, SOS 2017 ALL UPPER TEETH EXT, TAI DENTAL, 2018 VASECTOMY- SMC/UROLOGY, WITH SEVERE SCAR TISSUE 2017 ENDOSCOPY UPPER AND LOWER, WITH BX-[facility], ADDITIONAL TESTING 03/2018 SINUS SURGERY- POLYP FAMILY HISTORY FATHER: 80 YRS, DIAGNOSED WITH OTHER MALIGNANT NEOPLASM OF UNSPECIFIED SITE MOTHER: ALIVE 54 YRS, HYPERTENSION SIBLINGS: UNKNOWN SON(S): ALIVE DAUGHTER(S): ALIVE 1 YRS PATERNAL GRAND FATHER: UNKNOWN PATERNAL GRAND MOTHER: UNKNOWN MATERNAL GRAND FATHER: 65 YRS, DIABETES, HYPERTENSION, UNSPECIFIED HEART DISEASE MATERNAL GRAND MOTHER: 68 YRS, HYPERTENSION, UNSPECIFIED HEART DISEASE - HTN, HIGH CHOLESTEROL, ALLERGIES, ASTHMA, 1YR DAUGHTER, 1MONTH OLD SON- NO KNOWN RAGHAVENDRA ISSUES, MATERNAL GRANDPARENTS- GRANDMOTHER 65, DM, HEART, CHOLESTEROL, HTN, PARKINSONS,GRANDFATHER- 68 HEART DISEASE, HTN, NADIA CHOLESTEROL, COUGH-THROAT CLOSING-ISSUES. SOCIAL HISTORY GENERAL: TOBACCO USE ARE YOU A:FORMER SMOKER NICITROL INHALER SMOKING CESSATION INFORMATION GIVEN04/03/2018 HIV / HEP-C SCREENING HIV TEST OFFERED TO PATIENT:YES DATE OFFERED:05/01/2017 TEST ACCEPTED:NO REASON:PATIENT DECLINED OTHERS AT HOME: ALONE. EDUCATION LEVEL OF EDUCATION:HIGH SCHOOL DIET: REGULAR. LANGUAGE LANGUAGES SPOKEN:[place] DOMESTIC VIOLENCE DO YOU FEEL SAFE IN YOUR ENVIRONMENT?YES RECREATIONAL DRUG USE DRUG USE?NO EXERCISE: DAILY, WALKS. LEARNING BARRIERS / SPECIAL NEEDS CHANGE FROM LAST VISIT?NO BARRIERS TO LEARNING?NO HEARING IMPAIRED?NO VISION IMPAIRED?YES COGNITIVELY IMPAIRED?NO :CORRECTIVE LENSES READINESS TO LEARN?YES LEARNING PREFERENCES?NO LEARNING CAPABILITIES PRESENT?YES EMOTIONAL BARRIERS?NO SPECIAL DEVICES?NO WELDING MACHINE OPERATOR HELPER GAS NEEDED?NO PAIN CLINIC PFS, CLERGY, PUBLIC HEALTH REFERRALS HAS THE PATIENT BEEN EDUCATED REGARDING HIS/HER PLAN OF CARE?YES HAS THE PATIENT BEEN EDUCATED REGARDING PAIN, THE RISK FOR PAIN, THE IMPORTANCE OF EFFECTIVE PAIN MANAGEMENT, AND THE PAIN ASSESSMENT PROCESS?YES LATEX QUESTIONNAIRE LATEX ALLERGY : HAVE YOU EVER DEVELOPED ANY TYPE OF REACTION AFTER HANDLING LATEX PRODUCTS SUCH RUBBER GLOVES, CONDOMS, DIAPHRAGMS, BALLOONS, SOCKS, OR UNDERWEAR?NO LATEX ALLERGY : HAVE YOU EVER DEVELOPED ANY TYPE OF REACTION DURING OR AFTER DENTAL APPOINTMENT, VAGINAL/RECTAL EXAMINATION, SURGICAL PROCEDURE, OR ANY OTHER EXPOSURE?NO LATEX RISK : HAVE YOU EVER HAD ANY DIFFICULTY BREATHING OR HIVES AFTER EATING OR HANDLING ANY FRUITS, OR VEGETABLES; SUCH KIWI, BANANAS, STONE FRUITS, OR CHESTNUTSNO LATEX RISK : DO YOU HAVE A PREVIOUS PERSONAL HISTORY OF MORE THAN NINE SURGERIES, SPINA BIFIDA, OR REPEATED CATHERIZATIONS? YES - PLEASE INDICATE : > 9 SURGERIES LATEX RISK : ARE YOU FREQUENTLY EXPOSED TO LATEX PRODUCTS IN YOUR OCCUPATION?NO DATE ASKED : 06/27/2018 CAFFEINE CAFFEINE USE?NO PEPSI 3 BOTTLES A DAY ADVANCE DIRECTIVE ADVANCE DIRECTIVE DISCUSSED WITH PATIENT:YES PT DOES NOT HAVE HCP AND DECLINES INFO AND ASSISTANCE AT THIS TIME. SCIENTOLOGY [id number] NONE MARITAL STATUS: SINGLE. ALCOHOL SCREENING DID YOU HAVE A DRINK CONTAINING ALCOHOL IN THE PAST YEAR?YES HOW OFTEN DID YOU HAVE SIX OR MORE DRINKS ON ONE OCCASION IN THE PAST YEAR?NEVER (0 POINTS) HOW MANY DRINKS DID YOU HAVE ON A TYPICAL DAY WHEN YOU WERE DRINKING IN THE PAST YEAR?1 OR 2 (0 POINTS) HOW OFTEN DID YOU HAVE A DRINK CONTAINING ALCOHOL IN THE PAST YEAR?MONTHLY OR LESS (1 POINT) POINTS1 INTERPRETATIONNEGATIVE OCCUPATION: UNEMPLOYED. SEXUAL HX HAD SEX IN THE LAST 12 MONTHS (VAGINAL, ORAL, OR ANAL)?YES WITHWOMEN ONLY PREVENTION STRATEGIES DISCUSSED:OTHER USE PROTECTION?NO HAVE YOU EVER HAD AN STD?NO REVIEWED WITH PT 06/29/18 1250 BVREVIEWED WITH PATIENT 09/06/18 1532 JSREVIEWED WITH PATIENT 02/13/19 1319 JS. HOSPITALIZATION/MAJOR DIAGNOSTIC PROCEDURE SURIGCAL RELATED SMC CELLULITIS RIGHT GROIN WITH ABSCESS 10/06-10/09/17 REVIEW OF SYSTEMS REVIEWED BY: PROVIDER: BROCK OTTO . CONSTITUTIONAL: ANY CHANGE IN YOUR MEDICAL CONDITION? NO . CHILLS NO . FEVER NO . INFECTION: DO YOU HAVE NEW INFECTIONS? NO . DO YOU HAVE HISTORY OF MRSA? NO . MUSCULOSKELETAL: ANY NEW PATTERNS OF PAIN OR NUMBNESS? NO . GASTROENTEROLOGY: ANY NEW CHANGE IN BOWEL CONTROL? NO . GENITOURINARY: ANY NEW CHANGE IN BLADDER CONTROL? NO . IS THERE A CHANCE YOU COULD BE ? NO . HEMATOLOGY/LYMPH: DO YOU TAKE ANY BLOOD THINNERS? (FOR EXAMPLE- COUMADIN, PLAVIX, AGGRENOX, PLATEL, PRADAXA, OR XARELTO) NO . WHEN WAS YOUR LAST DOSE? DATE: TIME: . NEUROLOGY: HAVE YOU FALLEN IN THE PAST 12 MONTHS? NO . ANY NEW EXTREMITY NUMBNESS OR WEAKNESS? NO . CARDIOLOGY: DO YOU HAVE A PACEMAKER OR DEFIBRILLATOR? NO . RESPIRATORY: HAVE YOU BEEN SICK IN THE PAST WEEK? NO . FEVER NO . FLU LIKE SYMPTOMS? NO . COUGH NO . INTEGUMENTARY: DO YOU HAVE ANY RASHES OR OPEN SORES? NO . ALLERGIC/IMMUNO: ARE YOU ALLERGIC TO IV DYE? NO . ANY NEW ALLERGIES? NO . PSYCHIATRIC: DO YOU HAVE THOUGHTS OF HURTING YOURSELF OR SOMEONE ELSE? NO . ARE YOU ABUSED, NEGLECTED, OR IN AN UNSAFE ENVIRONMENT? NO . ENDOCRINOLOGY: ARE YOU DIABETIC? NO . OTHER: DO YOU NEED ANY PRESCRIPTIONS? NO . IF YES, PLEASE LIST: ____ . ANY NEW PROBLEMS WITH YOUR MEDICATIONS? YES, STATES THE GABAPENTIN MAKES HIM REALY TIRED - NOT A NEW PROBLEM, ONLY TAKING ONCE A DAY . WHEN DID YOU LAST EAT? ____ . WHEN DID YOU LAST DRINK? ____ . WHAT DID YOU LAST DRINK? ____ . NAME OF PERSON DRIVING YOU HOME? ____ . DO YOU HAVE ANY OTHER QUESTIONS OR CONCERNS NO . VITAL SIGNS WT 207.8 LBS, HT 65 IN, BMI 34.58 INDEX, BP 119/76 MM HG, HR 67 /MIN, RR 16 /MIN, TEMP 97.4 F, OXYGEN SAT % 99%, SAFE IN ENV? (Y/N) YES, REVIEWED BY: TARYN. EXAMINATION GENERAL EXAMINATION: GENERAL ALERT,ORIENTED,PLEASANT. LUNGS: CLEAR TO AUSCULTATION, BILATERAL. HEART: NORMAL S1S2. MALE GENITOURINARY:TESTICLES - NO REDDNESS OR SWELLING,HYPERSENSITIVE TO LIGHT TOUCH NO INGUINAL ADENOPATHY BILAT.. ASSESSMENTS TESTALGIA - N50.819 (PRIMARY) TREATMENT TESTALGIA CONTINUE CYMBALTA CAPSULE DELAYED RELEASE PARTICLES, 60 MG, 1 CAPSULE, ORALLY FOR PAIN, DAILY CONTINUE GABAPENTIN CAPSULE, 100 MG, 1 CAPSULE, ORALLY FOR PAIN, TID, NOTES: MAKES HIM SLEEPY TAKING 1 AT BEDTIME NOTES: DR HERNANDEZ CAME IN AFTER REVIEWING PSYCHOLOGICAL REPORT PRE DCS TRIAL DONE RECENTLY.HE WOULD LIKE TO TALK WITH PSYCHOLOGIST AND A RELEASE FORM WAS SIGNED TODAY.HE IS RECOMMENDING GENOFEMORAL BLOCK LEFT-REQUEST AUTH.DR HERNANDEZ IS RECOMMENDING CONTINUATION OF CYMBALTA 60MG DAILY AND GABAPENTIN 100MG AT NIGHT. PREVENTIVE MEDICINE PAIN CLINIC TEACHING: PROCEDURE TEACHING REVIEWED INFORMATION ON GENITOFEMORAL BLOCK PROCEDURE WITH PATIENT. ALSO REVIEWED PRE-PROCEDURE INSTRUCTIONS. PATIENT VERBALIZED AN UNDERSTANDING. ROMULO SARKAR 02/13/2019 3:22:40 PM > . PROCEDURE CODES FA211 ESTABILISHED PATIENT [facility] CHARGE DISPOSITION & COMMUNICATION FOLLOW UP POST (REASON: GENOFEMORAL BLOCK LEFT-REQUEST AUTH) ELECTRONICALLY SIGNED BY FAM CERRATO ON 03/05/2019 AT 08:43 AM EST DISCLAIMER : THIS IS A VISIT SUMMARY EXTRACTED FROM THE [employer] CHART. IT IS NOT A COPY OF THE [employer] PROGRESS NOTE. MARY
== END ==
LOC: M PAIN 13:00
PROVIDERS: ATTEND Nurse Practitioner Family
DX: N50.819 Testicular pain, unspecified (principal); G89.29 Other chronic pain; Z86.59 Personal history of other mental and behavioral disorders; J45.909 Unspecified asthma, uncomplicated; G47.30 Sleep apnea, unspecified; F17.290 Nicotine dependence, other tobacco product, uncomplicated; Z79.899 Other long term (current) drug therapy

== ENCOUNTER 2019-03-17 13:30 | Emergency (ER) | payer MEDICARE, MEDICAID ==
[~2019-03-17] VITALS: Ht 167.6 cm; Wt 90.4 kg
[~2019-03-17 13:30] MED LIST changes: -DULO1CAP6; +DULO1CAP6 PO; -GABA-1171; +GABA-1171 PO
[2019-03-17] MEDS ORDERED: SING10TA32 PO (13:39)
[2019-03-17] MEDS ORDERED: ALL10TAB29 PO (13:39)
[2019-03-17] MEDS ORDERED: DIPH25CA32 PO (13:39)
[2019-03-17] MEDS ORDERED: METOCLOPRAMIDE INJ 10MG/2ML VIAL (J2765) As Ordered ONE (14:15)
[2019-03-17] MEDS ORDERED: METOCLOPRAMIDE INJ 10MG/2ML VIAL (J2765) IV ONE (14:15)
[2019-03-17] MEDS ORDERED: NS 1,000 ML IV ONE (14:15)
[2019-03-17] MEDS ORDERED: KETOROLAC 30 MG/ML VIAL (J1885) IV ONE (14:15)
[2019-03-17 14:40] LABS: BASO % 0.6 % (0.0-1.0); EOS # 0.1 10^3/uL (0.0-0.5); EOS % 1.3 % (0.0-3.0); HEMATOCRIT 46.6 % (42.0-52.0); HEMOGLOBIN 16.2 g/dl (13.5-17.5); LYMPH # 1.6 10^3/uL (1.5-5.0); LYMPH % 29.2 % (24.0-44.0); MEAN CORPUSCULAR HEMOGLOBIN 32.8 pg (27.0-33.0); MEAN CORPUSCULAR HGB CONC 34.8 g/dl (32.0-36.5); MEAN CORPUSCULAR VOLUME 94.3 fl (80.0-96.0); MONO # 0.9 10^3/uL (0.0-0.8); MONO % 16.9 % (0.0-5.0); NEUTROPHILS # 2.8 10^3/uL (1.5-8.5); NEUTROPHILS % 51.6 % (36.0-66.0); PLATELET COUNT, AUTOMATED 184 10^3/uL (150-450); RED BLOOD COUNT 4.94 10^6/uL (4.30-6.10); WHITE BLOOD COUNT 5.4 10^3/uL (4.0-10.0)
[2019-03-17 15:12] LABS: ALBUMIN 4.2 GM/DL (3.2-5.2); ALT/SGPT 28 U/L (12-78); BILIRUBIN,DIRECT 0.1 MG/DL (0.0-0.2); BILIRUBIN,TOTAL 0.3 MG/DL (0.2-1.0); BLOOD UREA NITROGEN 9 MG/DL (7-18); CALCIUM LEVEL 9.6 MG/DL (8.5-10.1); CARBON DIOXIDE LEVEL 25 MEQ/L (21-32); CHLORIDE LEVEL 105 MEQ/L (98-107); CREATININE FOR GFR 0.89 MG/DL (0.70-1.30); GLOMERULAR FILTRATION RATE > 60.0 (>60); GLUCOSE, FASTING 85 MG/DL (70-100); LIPASE 94 U/L (73-393); POTASSIUM SERUM 3.8 MEQ/L (3.5-5.1); SODIUM LEVEL 140 MEQ/L (136-145); TOTAL PROTEIN 7.3 GM/DL (6.4-8.2); VALPROIC ACID (DEPAKOTE) 56.1 UG/ML (50.0-100.0)
[2019-03-17] MEDS ORDERED: ISOVUE-370 76% 100ML VIAL (Q9967) As Ordered ONE (15:28)
[2019-03-17] MEDS ORDERED: REGL10TA6 PO (16:26)
[2019-03-17 16:30] VITALS: BP 137/78
--- NOTE | 2019-03-18 08:44 | REP ---
REASON: Abdominal pain. COMPARISON: 08/22/2018 CONTRAST: 100 mL Isovue-370. The lung bases are clear and unchanged. The liver, gallbladder, spleen, pancreas, adrenal glands and kidneys are within normal limits. The abdominal aorta and paraaortic regions are within normal limits. The bowel loops and their mesenteries are within normal limits. There is no free fluid or free air. There is no intraabdominal mass or adenopathy. CT PELVIS: The bowel loops and their mesenteries are within normal limits. There is no mass or adenopathy. There is no free fluid or free air. Bone window technique throughout the exam show the osseous structures to be stable and intact. IMPRESSION:CT findings are within normal limits. Electronically Signed by Pito Boogie DO 03/22/2019 04:32 P
== END 2019-03-17 16:31 | disposition home or self-care (01) ==
LOC: M ED 13:30
DX: K52.9 Noninfective gastroenteritis and colitis, unspecified (principal); E78.5 Hyperlipidemia, unspecified; F17.200 Nicotine dependence, unspecified, uncomplicated; J45.909 Unspecified asthma, uncomplicated; Z79.899 Other long term (current) drug therapy
CPT/HCPCS: 74177; 80048; 80076; 80164; 81001; 83690; 85025; 96361; 96374; 96375; 99284; J1885; J2765; Q9967

== ENCOUNTER 2019-04-04 18:08 | Emergency (ER) | payer MEDICARE, MEDICAID ==
[~2019-04-04] VITALS: Ht 167.6 cm; Wt 93.9 kg
[~2019-04-04 18:08] MED LIST changes: -ALLE1TAB23; -PROAAER10; -TRAZ-163 PO; +TRAZ-257 PO; -vitamin d
[2019-04-04] MEDS ORDERED: vitamin d (18:17)
[2019-04-04] MEDS ORDERED: PROAAER10 (18:17)
[2019-04-04] MEDS ORDERED: ALLE1TAB23 (18:17)
--- NOTE | 2019-04-04 18:48 | REP ---
Right ankle: Four views. History: Right ankle sprain. Comparison right ankle radiographs are from November 16, 2017. Findings: Four views right ankle demonstrate mild anterior lateral soft tissue swelling. There is a small accessory ossicle adjacent to the distal fibular tip. Ankle mortise is intact. No fractures seen. Impression: Anterior swelling. Accessory ossicle at the distal fibula unchanged from the prior study. No fracture seen. Electronically Signed by iDmas Chinchilla MD 04/04/2019 06:39 P
[2019-04-04] MEDS ORDERED: ACETAMINOPHEN 325 MG TAB PO ONE (20:30)
[2019-04-04] MEDS ORDERED: KETOROLAC TROMETHAMINE 10 MG TAB PO ONE (20:30)
[2019-04-04 20:43] VITALS: BP 133/89
== END 2019-04-04 21:24 | disposition home or self-care (01) ==
LOC: M ED 18:08
DX: S93.411A Sprain of calcaneofibular ligament of right ankle, initial encounter (principal); W00.0XXA Fall on same level due to ice and snow, initial encounter; Y92.018 Other place in single-family (private) house as the place of occurrence of the external cause; R05 Cough; E66.09 Other obesity due to excess calories; Z68.33 Body mass index [BMI] 33.0-33.9, adult; J30.9 Allergic rhinitis, unspecified; G47.33 Obstructive sleep apnea (adult) (pediatric); G43.109 Migraine with aura, not intractable, without status migrainosus; E78.5 Hyperlipidemia, unspecified; F31.9 Bipolar disorder, unspecified; R25.1 Tremor, unspecified; F17.210 Nicotine dependence, cigarettes, uncomplicated; Z79.02 Long term (current) use of antithrombotics/antiplatelets; Z79.51 Long term (current) use of inhaled steroids; Z79.899 Other long term (current) drug therapy

== ENCOUNTER → 2019-04-04 | Outpatient (CLI) | payer MEDICARE, MEDICAID ==
[~2019-04-04] MED LIST changes: +ALL10TAB29 PO; +ALLE1TAB23; +DIPH25CA32 PO; +PROAAER10; +REGL10TA6 PO; +vitamin d
[2019-04-04 14:17] LABS: BASO % 0.3 % (0.0-1.0); EOS # 0.2 10^3/uL (0.0-0.5); EOS % 2.2 % (0.0-3.0); HEMATOCRIT 49.4 % (42.0-52.0); HEMOGLOBIN 16.4 g/dl (13.5-17.5); LYMPH # 3.3 10^3/uL (1.5-5.0); LYMPH % 37.4 % (24.0-44.0); MEAN CORPUSCULAR HGB CONC 33.2 g/dl (32.0-36.5); MEAN CORPUSCULAR VOLUME 96.3 fl (80.0-96.0); MONO # 0.8 10^3/uL (0.0-0.8); MONO % 8.9 % (0.0-5.0); NEUTROPHILS # 4.4 10^3/uL (1.5-8.5); NEUTROPHILS % 50.9 % (36.0-66.0); PLATELET COUNT, AUTOMATED 167 10^3/uL (150-450); RED BLOOD COUNT 5.13 10^6/uL (4.30-6.10); WHITE BLOOD COUNT 8.7 10^3/uL (4.0-10.0)
[2019-04-04 14:29] LABS: ALBUMIN 4.1 GM/DL (3.2-5.2); ALT/SGPT 26 U/L (12-78); BILIRUBIN,TOTAL 0.5 MG/DL (0.2-1.0); BLOOD UREA NITROGEN 13 MG/DL (7-18); CALCIUM LEVEL 8.9 MG/DL (8.5-10.1); CARBON DIOXIDE LEVEL 29 MEQ/L (21-32); CHLORIDE LEVEL 104 MEQ/L (98-107); CHOLESTEROL LEVEL 188 MG/DL (<200); CREATININE FOR GFR 0.84 MG/DL (0.70-1.30); FREE T4 1.01 NG/DL (0.76-1.46); GLOMERULAR FILTRATION RATE > 60.0 (>60); GLUCOSE, FASTING 93 MG/DL (70-100); HDL CHOLESTEROL 39 MG/DL (>40); LDL CHOLESTEROL 93 MG/DL (<100); NON-HDL-C 149 MG/DL; POTASSIUM SERUM 3.8 MEQ/L (3.5-5.1); SODIUM LEVEL 141 MEQ/L (136-145); TOTAL PROTEIN 7.3 GM/DL (6.4-8.2); TRIGLYCERIDES LEVEL 282 MG/DL (<150)
[2019-04-04 14:33] LABS: TOTAL 25(OH) VITAMIN D 9.4 NG/ML (30.0-100.0)
[2019-04-04 14:35] LABS: HEMOGLOBIN A1c 5.1 %
--- NOTE | 2019-04-04 19:46 | REP ---
Chest x-ray: Two views. History: Cough. Comparison chest x-ray: April 15 2012. Findings: There is minimal linear plate-like atelectasis in the left base. The lungs are otherwise clear. The pleural angles are sharp. Heart size is normal. Pulmonary vasculature is not increased. No bony abnormalities seen. Impression: No active disease. Electronically Signed by Dimas Chinchilla MD 04/04/2019 07:38 P
== END ==
LOC: M WUC 11:10
PROVIDERS: ATTEND Physician Assistant
DX: R05 Cough (principal); F17.210 Nicotine dependence, cigarettes, uncomplicated; E66.09 Other obesity due to excess calories; Z68.33 Body mass index [BMI] 33.0-33.9, adult; J30.9 Allergic rhinitis, unspecified; G47.33 Obstructive sleep apnea (adult) (pediatric); G43.109 Migraine with aura, not intractable, without status migrainosus; E78.5 Hyperlipidemia, unspecified; F31.9 Bipolar disorder, unspecified; R25.1 Tremor, unspecified

== ENCOUNTER → 2019-04-09 | Outpatient (CLI) | payer MEDICARE, MEDICAID ==
[~2019-04-09] MED LIST changes: +ALLE1TAB23; +BUPIVACAINE HCL 0.25% 30 ML VIAL As Ordered ONE; +LIDOCAINE 1% SDV INJ 30 ML VIAL As Ordered ONE; +NORCO, ANEXSIA 5/325MG TABLET (HYDROcodone/ACETAMINOPHEN) As Ordered ONE; +PROAAER10; +TRIAMCINOLONE ACETONIDE SUSP 40 MG/ML VIAL (J3301) As Ordered ONE; +diazePAM 5 MG TAB As Ordered ONE; +vitamin d
--- NOTE | 2019-04-19 03:53 | ECWPNPC ---
PATIENT NAME: OBED RAO : 1980 GENDER: MALE VISIT DATE: 04/09/2019 DISCHARGE DATE: 04/09/19 1540 VISIT LOCKED DATE TIME: PHYSICIAN: ANGELINA HERNANDEZ MD RESOURCE: ANGELINA HERNANDEZ MD REASON FOR APPOINTMENT 1. GENITOFEMORAL BLOCK LEFT HISTORY OF PRESENT ILLNESS HISTORY OF PRESENT ILLNESS: PAIN THE PATIENT DESCRIBES THE PAIN... FALL RISK SCREENING: SCREENING :NO FALLS REPORTED IN THE LAST YEAR CURRENT MEDICATIONS TAKING PROPRANOLOL HCL 20 MG TABLET 1 TABLET ORALLY TWICE A DAY, NOTES: 04/08/191999 TAKING PRIMIDONE 50 MG TABLET 1 ORALLY PO BID, NOTES: 04/08/191999 TAKING DEPAKOTE ER 500 MG TABLET EXTENDED RELEASE 24 HOUR 4 TABS ORALLY DAILY, NOTES: 04/08/19999 TAKING VITAMIN C 500 MG TABLET CHEWABLE 1 TABLET ORALLY ONCE A DAY- OTC, NOTES: 04/08/191999 TAKING EXCEDRIN TENSION HEADACHE 500-65 MG TABLET 2 TABLETS NEEDED ORALLY THREE TIMES A DAY, NOTES: NONE RECENTLY TAKING NICOTROL 10 MG INHALER 1 CARTRIDGE NEEDED INHALATION 16 TIME(S) A DAY, NOTES: 04/08/19999 TAKING OMEPRAZOLE 40 MG CAPSULE DELAYED RELEASE 1 CAPSULE ORALLY ONCE A DAY, NOTES: 04/08/191999 TAKING SIMVASTATIN 40 MG TABLET 1 TABLET IN THE EVENING ORALLY ONCE A DAY, NOTES: 04/08/191999 TAKING FLONASE ALLERGY RELIEF 50 MCG/ACT SUSPENSION 1 SPRAY IN EACH NOSTRIL NASALLY ONCE A DAY, NOTES: 04/08/191999 TAKING CETIRIZINE HCL 10 MG TABLET 1 TABLET ORALLY ONCE A DAY, NOTES: 04/08/191999 TAKING MONTELUKAST SODIUM 10 MG TABLET 1 TABLET ORALLY ONCE A DAY, NOTES: 04/08/191999 TAKING CYMBALTA 60 MG CAPSULE DELAYED RELEASE PARTICLES 1 CAPSULE ORALLY FOR PAIN DAILY, NOTES: 04/08/191999 TAKING GABAPENTIN 100 MG CAPSULE 1 CAPSULE ORALLY FOR PAIN TID, NOTES: 04/08/191999 MAKES HIM SLEEPY TAKING 1 AT BEDTIME TAKING ZOLMITRIPTAN 5 MG TABLET 1 TABLET NEEDED ONE TIME ORALLY ONCE A DAY, NOTES: NONE RECENTLY TAKING AYR SALINE NASAL NETI RINSE 1.57 GM PACKET DIRECTED NASALLY DAILY, NOTES: NONE RECENTLY TAKING ALBUTEROL SULFATE HFA 108 (90 BASE) MCG/ACT AEROSOL SOLUTION 2 PUFFS NEEDED INHALATION EVERY 6 HRS, NOTES: NONE RECENTLY TAKING SUCRALFATE 1 GM TABLET ORAL DIRECTED, NOTES: UNSURE OF LAST DOSE TAKING VITAMIN D 50 MCG (1999) CAPSULE 1 CAPSULE ORALLY ONCE A DAY, NOTES: 04/07/19 TAKES [id number] WEEKLY TAKING AYANNA ALLERGY 180 MG TABLET 1 TABLET NEEDED ORALLY ONCE A DAY, NOTES: 04/08/191999 NOT-TAKING PERCOCET 10-325 MG TABLET 1 TABLET NEEDED ORALLY EVERY 6 HRS, NOTES: FOR SINUS SURGERY NOT-TAKING KEFLEX 500 MG CAPSULE 1 CAPSULE ORALLY EVERY 12 HRS MEDICATION LIST REVIEWED AND RECONCILED WITH THE PATIENT PAST MEDICAL HISTORY HIGH CHOLESTEROL BIPOLAR ADHD ALLERGIES ASTHMA SLEEP APNEA 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 COLONOSCOPY 03/2018: MILD NONSPECIFIC CHRONIC INFLAMMATION NOTED ON BIOPSY, NO ACTIVE COLITIS, DYSPLASIA OR GRANULOMA IDENTIFIED EGD 03/2018: MILD CHRONIC GASTRITIS NOTED ON BIOPSY, NO H-PYLORI RIANNA: MANAGED BY NEUROLOGY SCROTAL PAIN ED- FOLLOWING WITH UROLOGY MIHIR 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 ALLERGIES SEASONAL ALLERGIES: SNEEZING, COUGHING - ALLERGY SURGICAL HISTORY PERIANAL ABCESS X2 - MIHIR, DR DEMARCO SCHAFER 10/2015 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 - MIHIR, (?REACTION TO DYE) 12/2015 R SHOULDER ROTATOR CUFF, SOS 2017 ALL UPPER TEETH EXT, TAI DENTAL, 2018 VASECTOMY- [facility]/UROLOGY, WITH SEVERE SCAR TISSUE 2018 ENDOSCOPY UPPER AND LOWER, WITH BX-[facility], ADDITIONAL TESTING 03/2018 SINUS SURGERY- POLYP FAMILY HISTORY FATHER: 80 YRS, DIAGNOSED WITH OTHER MALIGNANT NEOPLASM OF UNSPECIFIED SITE MOTHER: ALIVE 54 YRS, HYPERTENSION SIBLINGS: UNKNOWN SON(S): ALIVE DAUGHTER(S): ALIVE 1 YRS PATERNAL GRAND FATHER: UNKNOWN PATERNAL GRAND MOTHER: UNKNOWN MATERNAL GRAND FATHER: 65 YRS, DIABETES, HYPERTENSION, UNSPECIFIED HEART DISEASE MATERNAL GRAND MOTHER: 68 YRS, HYPERTENSION, UNSPECIFIED HEART DISEASE - HTN, HIGH CHOLESTEROL, ALLERGIES, ASTHMA, 1YR DAUGHTER, 1MONTH OLD SON- NO KNOWN RAGHAVENDRA ISSUES, MATERNAL GRANDPARENTS- GRANDMOTHER 65, DM, HEART, CHOLESTEROL, HTN, PARKINSONS,GRANDFATHER- 68 HEART DISEASE, HTN, NADIA CHOLESTEROL, COUGH-THROAT CLOSING-ISSUES. SOCIAL HISTORY GENERAL: TOBACCO USE ARE YOU A:FORMER SMOKER NICITROL INHALER SMOKING CESSATION INFORMATION GIVEN04/03/2018 HIV / HEP-C SCREENING HIV TEST OFFERED TO PATIENT:YES DATE OFFERED:05/01/2017 TEST ACCEPTED:NO REASON:PATIENT DECLINED OTHERS AT HOME: ALONE. EDUCATION LEVEL OF EDUCATION:HIGH SCHOOL DIET: REGULAR. LANGUAGE LANGUAGES SPOKEN:CYPRIOT DOMESTIC VIOLENCE DO YOU FEEL SAFE IN YOUR ENVIRONMENT?YES RECREATIONAL DRUG USE DRUG USE?NO EXERCISE: DAILY, WALKS. LEARNING BARRIERS / SPECIAL NEEDS CHANGE FROM LAST VISIT?NO BARRIERS TO LEARNING?NO HEARING IMPAIRED?NO VISION IMPAIRED?YES COGNITIVELY IMPAIRED?NO :CORRECTIVE LENSES READINESS TO LEARN?YES LEARNING PREFERENCES?NO LEARNING CAPABILITIES PRESENT?YES EMOTIONAL BARRIERS?NO SPECIAL DEVICES?NO SPUD DRILLER NEEDED?NO PAIN CLINIC PFS, CLERGY, PUBLIC HEALTH REFERRALS HAS THE PATIENT BEEN EDUCATED REGARDING HIS/HER PLAN OF CARE?YES HAS THE PATIENT BEEN EDUCATED REGARDING PAIN, THE RISK FOR PAIN, THE IMPORTANCE OF EFFECTIVE PAIN MANAGEMENT, AND THE PAIN ASSESSMENT PROCESS?YES LATEX QUESTIONNAIRE LATEX ALLERGY : HAVE YOU EVER DEVELOPED ANY TYPE OF REACTION AFTER HANDLING LATEX PRODUCTS SUCH RUBBER GLOVES, CONDOMS, DIAPHRAGMS, BALLOONS, SOCKS, OR UNDERWEAR?NO LATEX ALLERGY : HAVE YOU EVER DEVELOPED ANY TYPE OF REACTION DURING OR AFTER DENTAL APPOINTMENT, VAGINAL/RECTAL EXAMINATION, SURGICAL PROCEDURE, OR ANY OTHER EXPOSURE?NO DATE ASKED : 06/27/2018 LATEX RISK : HAVE YOU EVER HAD ANY DIFFICULTY BREATHING OR HIVES AFTER EATING OR HANDLING ANY FRUITS, OR VEGETABLES; SUCH KIWI, BANANAS, STONE FRUITS, OR CHESTNUTSNO LATEX RISK : DO YOU HAVE A PREVIOUS PERSONAL HISTORY OF MORE THAN NINE SURGERIES, SPINA BIFIDA, OR REPEATED CATHERIZATIONS? YES - PLEASE INDICATE : > 9 SURGERIES LATEX RISK : ARE YOU FREQUENTLY EXPOSED TO LATEX PRODUCTS IN YOUR OCCUPATION?NO CAFFEINE CAFFEINE USE?NO PEPSI 3 BOTTLES A DAY ADVANCE DIRECTIVE ADVANCE DIRECTIVE DISCUSSED WITH PATIENT:YES PT DOES NOT HAVE HCP AND DECLINES INFO AND ASSISTANCE AT THIS TIME. ISLAM [id number] NONE MARITAL STATUS: SINGLE. ALCOHOL SCREENING DID YOU HAVE A DRINK CONTAINING ALCOHOL IN THE PAST YEAR?YES HOW OFTEN DID YOU HAVE SIX OR MORE DRINKS ON ONE OCCASION IN THE PAST YEAR?NEVER (0 POINTS) HOW MANY DRINKS DID YOU HAVE ON A TYPICAL DAY WHEN YOU WERE DRINKING IN THE PAST YEAR?1 OR 2 (0 POINTS) HOW OFTEN DID YOU HAVE A DRINK CONTAINING ALCOHOL IN THE PAST YEAR?MONTHLY OR LESS (1 POINT) POINTS1 INTERPRETATIONNEGATIVE OCCUPATION: UNEMPLOYED. SEXUAL HX HAD SEX IN THE LAST 12 MONTHS (VAGINAL, ORAL, OR ANAL)?YES WITHWOMEN ONLY PREVENTION STRATEGIES DISCUSSED:OTHER USE PROTECTION?NO HAVE YOU EVER HAD AN STD?NO REVIEWED WITH PT 06/29/18 1250 BVREVIEWED WITH PATIENT 09/06/18 1532 JSREVIEWED WITH PATIENT 02/13/19 1319 JSPRE ADMISSION COMPLETE FOR 1-14-20 KG. HOSPITALIZATION/MAJOR DIAGNOSTIC PROCEDURE SURIGCAL RELATED SMC CELLULITIS RIGHT GROIN WITH ABSCESS 10/06-10/09/17 REVIEW OF SYSTEMS REVIEWED BY: PROVIDER: . CONSTITUTIONAL: ANY CHANGE IN YOUR MEDICAL CONDITION? NO . CHILLS NO . FEVER NO . INFECTION: DO YOU HAVE NEW INFECTIONS? NO . DO YOU HAVE HISTORY OF MRSA? NO . MUSCULOSKELETAL: ANY NEW PATTERNS OF PAIN OR NUMBNESS? NO . GASTROENTEROLOGY: ANY NEW CHANGE IN BOWEL CONTROL? NO . GENITOURINARY: ANY NEW CHANGE IN BLADDER CONTROL? NO . IS THERE A CHANCE YOU COULD BE ? NO . HEMATOLOGY/LYMPH: DO YOU TAKE ANY BLOOD THINNERS? (FOR EXAMPLE- COUMADIN, PLAVIX, AGGRENOX, PLATEL, PRADAXA, OR XARELTO) NO . WHEN WAS YOUR LAST DOSE? DATE: TIME: . NEUROLOGY: HAVE YOU FALLEN IN THE PAST 12 MONTHS? NO . ANY NEW EXTREMITY NUMBNESS OR WEAKNESS? NO . CARDIOLOGY: DO YOU HAVE A PACEMAKER OR DEFIBRILLATOR? NO . RESPIRATORY: HAVE YOU BEEN SICK IN THE PAST WEEK? NO . FEVER NO . FLU LIKE SYMPTOMS? NO . COUGH NO . INTEGUMENTARY: DO YOU HAVE ANY RASHES OR OPEN SORES? NO . ALLERGIC/IMMUNO: ARE YOU ALLERGIC TO IV DYE? NO . ANY NEW ALLERGIES? NO . PSYCHIATRIC: DO YOU HAVE THOUGHTS OF HURTING YOURSELF OR SOMEONE ELSE? NO . ARE YOU ABUSED, NEGLECTED, OR IN AN UNSAFE ENVIRONMENT? NO . ENDOCRINOLOGY: ARE YOU DIABETIC? NO . OTHER: DO YOU NEED ANY PRESCRIPTIONS? NO . IF YES, PLEASE LIST: ____ . ANY NEW PROBLEMS WITH YOUR MEDICATIONS? NO . WHEN DID YOU LAST EAT? 04/08/19 MIDNIGHT . WHEN DID YOU LAST DRINK? 04/08/19 MIDNIGHT . WHAT DID YOU LAST DRINK? WATER . NAME OF PERSON DRIVING YOU HOME? MISTY SCHACK . DO YOU HAVE ANY OTHER QUESTIONS OR CONCERNS NO . VITAL SIGNS WT 208.8 LBS, HT 65 IN, BMI 34.74 INDEX, BP 134/82 MM HG, HR 78 /MIN, RR 18 /MIN, TEMP 98.0 F, OXYGEN SAT % 96%, NA INITIALS SC 11:35, REVIEWED BY: VIDHYA. ASSESSMENTS INGUINAL NEURALGIA - M79.2 (PRIMARY) PROCEDURES PRE-PROCEDURE DIAGNOSIS: LEFT GENITOFEMORAL NEURALGIAPOST-PROCEDURE DIAGNOSIS: LEFT GENITOFEMORAL NEUALGIASURGEON: SHARLA GIBBONSTHESIA: LOCALCOMPLICATIONS: NONEPRE-PROCEDURE NOTE: MR. RAO IS A 39-YEAR-OLD MALE PATIENT WITH A HISTORY OF LEFT TESTICULAR PAIN AND INGUINAL PAIN. THE PATIENT WANTS TO HAVE THIS PROCEDURE DUE TO PAIN AFTER A VASECTOMY. I WENT THOUGH THE RISKS, ALTERNATIVES, AND BENEFITS ASSOCIATED WITH THIS PROCEDURE AND THE PATIENT EXPRESSED THAT HE WOULD LIKE TO PROCEED. THE PATIENT DENIES UNEXPLAINABLE WEIGHT LOSS, FEVER, CHILLS, OR CHANGES IN URINARY OR BOWEL CONTROL.PROCEDURE NOTE: AFTER CONSENT WAS SIGNED, THE PATIENT WAS BROUGHT TO THE PROCEDURE ROOM AND PLACED IN THE SUPINE POSITION. THE LEFT GENITOFEMORAL AREA WAS CLEANED WITH CHLORAPREP SOLUTION AND DRAPED ASEPTICALLY. THE PROCEDURE WAS DONE UNDER STERILE STANDARD TECHNIQUES. WITH THE ASSISTANCE OF A NERVE STIMULATOR, WE WENT APPROXIMATELY 2 INCHES MEDIAL FROM THE SYMPHISIS PUBIS AND AFTER CHECKING THE FEMORAL ARTERY AND VEIN, FIRST AT 3.0 AND THEN AT 2.0. THE PATIENT WAS HAVING STIMULATION TOWARDS THE LEFT TESTICLE WHERE HIS USUAL PAIN IS. WE INJECTED THERE A TOTAL OF 20 ML OF BUPIVACAINE 0.125% AND KENALOG 40 MG. THERE WAS NO EVIDENCE OF BLOOD, PARESTHESIA OR VISCERAL PUNCTURE. THERE WAS NO EVIDENCE OF ANY COMPLICATIONS. THE PATIENT TOLERATED THE PROCEDURE WITHOUT COMPLICATIONS AND WAS SENT TO THE RECOVERY ROOM WHERE HE WAS MOVING HIS EXTREMITIES AND DOING WELL.POST PROCEDURE NOTE: I WILL SEE THE PATIENT IN A FOLLOWUP IN THE NEXT FEW WEEKS. WE ARE LOOKING FOR LONG-LASTING PAIN RELIEF WITH THIS INTERVENTION. THERE WERE NO COMPLICATIONS. INSTRUCTIONS WERE GIVEN QUESTIONS WERE ANSWERED AND THE PATIENT REPORTS UNDERSTANDING AND AGREES. I, TRU DENIS, DOCUMENTED THE ABOVE INFORMATION ACTING A SCRIBE FOR DR. HERNANDEZ. I HAVE REVIEWED THE ABOVE DOCUMENT, WRITTEN BY MITRA LINARES, AND I VERIFY THAT IT IS ACCURATE. PROCEDURE CODES 62147 N BLOCK INJ ILIO-ING/HYPOGI, MODIFIERS: LT DISPOSITION & COMMUNICATION FOLLOW UP 3 WEEKS ELECTRONICALLY SIGNED BY ANGELINA HERNANDEZ MD, MD ON 04/18/2019 AT 01:07 PM EST DISCLAIMER : THIS IS A VISIT SUMMARY EXTRACTED FROM THE [employer] CHART. IT IS NOT A COPY OF THE [employer] PROGRESS NOTE. MARY
== END ==
LOC: M PAIN 11:30
PROVIDERS: ATTEND Anesthesiology
DX: M79.2 Neuralgia and neuritis, unspecified (principal); Z86.59 Personal history of other mental and behavioral disorders; J45.909 Unspecified asthma, uncomplicated; G47.30 Sleep apnea, unspecified; F17.290 Nicotine dependence, other tobacco product, uncomplicated; Z79.899 Other long term (current) drug therapy
CPT/HCPCS: 64425; J3301

== ENCOUNTER → 2019-04-19 | Outpatient (CLI) | payer MEDICARE ==
[~2019-04-19] MED LIST changes: -BUPIVACAINE HCL 0.25% 30 ML VIAL As Ordered ONE; -LIDOCAINE 1% SDV INJ 30 ML VIAL As Ordered ONE; -NORCO, ANEXSIA 5/325MG TABLET (HYDROcodone/ACETAMINOPHEN) As Ordered ONE; -TRIAMCINOLONE ACETONIDE SUSP 40 MG/ML VIAL (J3301) As Ordered ONE; -diazePAM 5 MG TAB As Ordered ONE
[2019-04-19 12:22] LABS: BASO % 0.4 % (0.0-1.0); EOS # 0.1 10^3/uL (0.0-0.5); EOS % 1.3 % (0.0-3.0); HEMOGLOBIN 15.7 g/dl (13.5-17.5); LYMPH # 3.2 10^3/uL (1.5-5.0); MEAN CORPUSCULAR HEMOGLOBIN 32.6 pg (27.0-33.0); MEAN CORPUSCULAR HGB CONC 34.9 g/dl (32.0-36.5); MEAN CORPUSCULAR VOLUME 93.4 fl (80.0-96.0); MONO # 0.8 10^3/uL (0.0-0.8); NEUTROPHILS % 53.9 % (36.0-66.0); PLATELET COUNT, AUTOMATED 168 10^3/uL (150-450); RED BLOOD COUNT 4.82 10^6/uL (4.30-6.10); WHITE BLOOD COUNT 9.2 10^3/uL (4.0-10.0)
[2019-04-19 12:42] LABS: ALBUMIN 4.2 GM/DL (3.2-5.2); ALT/SGPT 22 U/L (12-78); BILIRUBIN,TOTAL 0.6 MG/DL (0.2-1.0); BLOOD UREA NITROGEN 12 MG/DL (7-18); CALCIUM LEVEL 8.9 MG/DL (8.5-10.1); CARBON DIOXIDE LEVEL 29 MEQ/L (21-32); CHLORIDE LEVEL 105 MEQ/L (98-107); GLOMERULAR FILTRATION RATE > 60.0 (>60); GLUCOSE, FASTING 82 MG/DL (70-100); SODIUM LEVEL 139 MEQ/L (136-145); TOTAL PROTEIN 7.4 GM/DL (6.4-8.2); VALPROIC ACID (DEPAKOTE) 63.2 UG/ML (50.0-100.0)
== END ==
LOC: M WUC 10:48
PROVIDERS: ATTEND Physician Assistant
DX: F63.81 Intermittent explosive disorder (principal); Z79.899 Other long term (current) drug therapy

== ENCOUNTER → 2019-05-06 | Outpatient (CLI) | payer MEDICARE, MEDICAID ==
--- NOTE | 2019-05-21 02:57 | ECWPNPC ---
PATIENT NAME: OBED RAO : 1980 GENDER: MALE VISIT DATE: 05/06/2019 DISCHARGE DATE: 05/06/19 1225 VISIT LOCKED DATE TIME: PHYSICIAN: BROCK QUIGLEY RESOURCE: BROCK QUIGLEY REASON FOR APPOINTMENT 1. FOLLOW UP HISTORY OF PRESENT ILLNESS HISTORY OF PRESENT ILLNESS: HERE FOR FOLLOW-UP OF CHRONIC RIGHT TESTICULAR/GROIN PAIN. HAD LEFT GENITOFEMORAL NERVE BLOCK ON 04/09/2019. REPORTS A 50% REDUCTION IN PAIN WHICH CONTINUES TODAY. RATING PAIN LEVEL5/10 VAS. REPORTS PROCEDURE BEING VERY PAINFUL DESPITE ORAL SEDATION. DISCUSSED IV SEDATION. PAIN THE PATIENT DESCRIBES THE PAIN... FALL RISK SCREENING: SCREENING :NO FALLS REPORTED IN THE LAST YEAR CURRENT MEDICATIONS TAKING PROPRANOLOL HCL 20 MG TABLET 1 TABLET ORALLY TWICE A DAY TAKING PRIMIDONE 50 MG TABLET 1 ORALLY PO BID TAKING DEPAKOTE ER 500 MG TABLET EXTENDED RELEASE 24 HOUR 4 TABS ORALLY DAILY TAKING VITAMIN C 500 MG TABLET CHEWABLE 1 TABLET ORALLY ONCE A DAY- OTC TAKING EXCEDRIN TENSION HEADACHE 500-65 MG TABLET 2 TABLETS NEEDED ORALLY THREE TIMES A DAY TAKING NICOTROL 10 MG INHALER 1 CARTRIDGE NEEDED INHALATION 16 TIME(S) A DAY TAKING OMEPRAZOLE 40 MG CAPSULE DELAYED RELEASE 1 CAPSULE ORALLY ONCE A DAY TAKING SIMVASTATIN 40 MG TABLET 1 TABLET IN THE EVENING ORALLY ONCE A DAY TAKING FLONASE ALLERGY RELIEF 50 MCG/ACT SUSPENSION 1 SPRAY IN EACH NOSTRIL NASALLY ONCE A DAY TAKING CETIRIZINE HCL 10 MG TABLET 1 TABLET ORALLY ONCE A DAY TAKING MONTELUKAST SODIUM 10 MG TABLET 1 TABLET ORALLY ONCE A DAY TAKING CYMBALTA 60 MG CAPSULE DELAYED RELEASE PARTICLES 1 CAPSULE ORALLY FOR PAIN DAILY TAKING GABAPENTIN 100 MG CAPSULE 1 CAPSULE ORALLY FOR PAIN TID, NOTES: MAKES HIM SLEEPY TAKING 1 AT BEDTIME TAKING AYR SALINE NASAL NETI RINSE 1.57 GM PACKET DIRECTED NASALLY DAILY TAKING ALBUTEROL SULFATE HFA 108 (90 BASE) MCG/ACT AEROSOL SOLUTION 2 PUFFS NEEDED INHALATION EVERY 6 HRS TAKING VITAMIN D 50 MCG (2000 UT) CAPSULE 1 CAPSULE ORALLY ONCE A DAY, NOTES: [id number] UNITS WEEKLY TAKING AYANNA ALLERGY 180 MG TABLET 1 TABLET NEEDED ORALLY ONCE A DAY NOT-TAKING ZOLMITRIPTAN 5 MG TABLET 1 TABLET NEEDED ONE TIME ORALLY ONCE A DAY NOT-TAKING SUCRALFATE 1 GM TABLET ORAL DIRECTED NOT-TAKING PERCOCET 10-325 MG TABLET 1 TABLET NEEDED ORALLY EVERY 6 HRS, NOTES: FOR SINUS SURGERY NOT-TAKING KEFLEX 500 MG CAPSULE 1 CAPSULE ORALLY EVERY 12 HRS MEDICATION LIST REVIEWED AND RECONCILED WITH THE PATIENT PAST MEDICAL HISTORY HIGH CHOLESTEROL BIPOLAR ADHD ALLERGIES ASTHMA SLEEP APNEA 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 COLONOSCOPY 03/2018: MILD NONSPECIFIC CHRONIC INFLAMMATION NOTED ON BIOPSY, NO ACTIVE COLITIS, DYSPLASIA OR GRANULOMA IDENTIFIED EGD 03/2018: MILD CHRONIC GASTRITIS NOTED ON BIOPSY, NO H-PYLORI RIANNA: MANAGED BY NEUROLOGY SCROTAL PAIN ED- FOLLOWING WITH UROLOGY CARTGE 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 ALLERGIES SEASONAL ALLERGIES: SNEEZING, COUGHING - ALLERGY SURGICAL HISTORY PERIANAL ABCESS X2 - MIHIR, DR DEMARCO SCHAFER 10/2015 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, (?REACTION TO DYE) 12/2015 R SHOULDER ROTATOR CUFF, SOS 2017 ALL UPPER TEETH EXT, TAI DENTAL, 2018 VASECTOMY- [facility]/UROLOGY, WITH SEVERE SCAR TISSUE 2018 ENDOSCOPY UPPER AND LOWER, WITH BX-[facility], ADDITIONAL TESTING 03/2018 SINUS SURGERY- POLYP FAMILY HISTORY FATHER: 80 YRS, DIAGNOSED WITH OTHER MALIGNANT NEOPLASM OF UNSPECIFIED SITE MOTHER: ALIVE 54 YRS, HYPERTENSION SIBLINGS: UNKNOWN SON(S): ALIVE DAUGHTER(S): ALIVE 1 YRS PATERNAL GRAND FATHER: UNKNOWN PATERNAL GRAND MOTHER: UNKNOWN MATERNAL GRAND FATHER: 65 YRS, DIABETES, HYPERTENSION, UNSPECIFIED HEART DISEASE MATERNAL GRAND MOTHER: 68 YRS, HYPERTENSION, UNSPECIFIED HEART DISEASE - HTN, HIGH CHOLESTEROL, ALLERGIES, ASTHMA, 1YR DAUGHTER, 1MONTH OLD SON- NO KNOWN RAGHAVENDRA ISSUES, MATERNAL GRANDPARENTS- GRANDMOTHER 65, DM, HEART, CHOLESTEROL, HTN, PARKINSONS,GRANDFATHER- 68 HEART DISEASE, HTN, NADIA CHOLESTEROL, COUGH-THROAT CLOSING-ISSUES. SOCIAL HISTORY GENERAL: TOBACCO USE ARE YOU A:FORMER SMOKER NICITROL INHALER HOW LONG HAS IT BEEN SINCE YOU LAST SMOKED?3-6 MONTHS SMOKING CESSATION INFORMATION GIVEN04/03/2018 HIV / HEP-C SCREENING HIV TEST OFFERED TO PATIENT:YES DATE OFFERED:05/01/2017 TEST ACCEPTED:NO REASON:PATIENT DECLINED OTHERS AT HOME: ALONE. EDUCATION LEVEL OF EDUCATION:HIGH SCHOOL DIET: REGULAR. LANGUAGE LANGUAGES SPOKEN:MONTENEGRIN DOMESTIC VIOLENCE DO YOU FEEL SAFE IN YOUR ENVIRONMENT?YES RECREATIONAL DRUG USE DRUG USE?NO EXERCISE: DAILY, WALKS. LEARNING BARRIERS / SPECIAL NEEDS CHANGE FROM LAST VISIT?NO BARRIERS TO LEARNING?NO HEARING IMPAIRED?NO VISION IMPAIRED?YES COGNITIVELY IMPAIRED?NO :CORRECTIVE LENSES READINESS TO LEARN?YES LEARNING PREFERENCES?NO LEARNING CAPABILITIES PRESENT?YES EMOTIONAL BARRIERS?NO SPECIAL DEVICES?NO AIR HAMMER STRIPPER NEEDED?NO PAIN CLINIC PFS, CLERGY, PUBLIC HEALTH REFERRALS HAS THE PATIENT BEEN EDUCATED REGARDING HIS/HER PLAN OF CARE?YES HAS THE PATIENT BEEN EDUCATED REGARDING PAIN, THE RISK FOR PAIN, THE IMPORTANCE OF EFFECTIVE PAIN MANAGEMENT, AND THE PAIN ASSESSMENT PROCESS?YES LATEX QUESTIONNAIRE LATEX ALLERGY : HAVE YOU EVER DEVELOPED ANY TYPE OF REACTION AFTER HANDLING LATEX PRODUCTS SUCH RUBBER GLOVES, CONDOMS, DIAPHRAGMS, BALLOONS, SOCKS, OR UNDERWEAR?NO LATEX ALLERGY : HAVE YOU EVER DEVELOPED ANY TYPE OF REACTION DURING OR AFTER DENTAL APPOINTMENT, VAGINAL/RECTAL EXAMINATION, SURGICAL PROCEDURE, OR ANY OTHER EXPOSURE?NO LATEX RISK : HAVE YOU EVER HAD ANY DIFFICULTY BREATHING OR HIVES AFTER EATING OR HANDLING ANY FRUITS, OR VEGETABLES; SUCH KIWI, BANANAS, STONE FRUITS, OR CHESTNUTSNO LATEX RISK : DO YOU HAVE A PREVIOUS PERSONAL HISTORY OF MORE THAN NINE SURGERIES, SPINA BIFIDA, OR REPEATED CATHERIZATIONS? YES - PLEASE INDICATE : > 9 SURGERIES LATEX RISK : ARE YOU FREQUENTLY EXPOSED TO LATEX PRODUCTS IN YOUR OCCUPATION?NO DATE ASKED : 06/27/2018 CAFFEINE CAFFEINE USE?NO PEPSI 3 BOTTLES A DAY ADVANCE DIRECTIVE ADVANCE DIRECTIVE DISCUSSED WITH PATIENT:YES 05/06/2019 PT DOES NOT HAVE HCP AND DECLINES INFO AND ASSISTANCE AT THIS TIME. JS TENRIISM [id number] NONE MARITAL STATUS: SINGLE. ALCOHOL SCREENING DID YOU HAVE A DRINK CONTAINING ALCOHOL IN THE PAST YEAR?YES HOW OFTEN DID YOU HAVE SIX OR MORE DRINKS ON ONE OCCASION IN THE PAST YEAR?NEVER (0 POINTS) HOW MANY DRINKS DID YOU HAVE ON A TYPICAL DAY WHEN YOU WERE DRINKING IN THE PAST YEAR?1 OR 2 (0 POINTS) HOW OFTEN DID YOU HAVE A DRINK CONTAINING ALCOHOL IN THE PAST YEAR?MONTHLY OR LESS (1 POINT) POINTS1 INTERPRETATIONNEGATIVE OCCUPATION: UNEMPLOYED. SEXUAL HX HAD SEX IN THE LAST 12 MONTHS (VAGINAL, ORAL, OR ANAL)?YES WITHWOMEN ONLY PREVENTION STRATEGIES DISCUSSED:OTHER USE PROTECTION?NO HAVE YOU EVER HAD AN STD?NO REVIEWED WITH PT 06/29/18 1250 BVREVIEWED WITH PATIENT 09/06/18 1532 JSREVIEWED WITH PATIENT 02/13/19 1319 JSPRE ADMISSION COMPLETE FOR 04-09-19 KGREVIEWED WITH PATIENT 05/06/2019 1153 JS. HOSPITALIZATION/MAJOR DIAGNOSTIC PROCEDURE SURIGCAL RELATED SMC CELLULITIS RIGHT GROIN WITH ABSCESS 10/06-10/09/17 REVIEW OF SYSTEMS REVIEWED BY: PROVIDER: BROCK OTTO . CONSTITUTIONAL: ANY CHANGE IN YOUR MEDICAL CONDITION? NO . CHILLS NO . FEVER NO . INFECTION: DO YOU HAVE NEW INFECTIONS? NO . DO YOU HAVE HISTORY OF MRSA? NO . MUSCULOSKELETAL: ANY NEW PATTERNS OF PAIN OR NUMBNESS? NO . GASTROENTEROLOGY: ANY NEW CHANGE IN BOWEL CONTROL? NO . GENITOURINARY: ANY NEW CHANGE IN BLADDER CONTROL? NO . IS THERE A CHANCE YOU COULD BE ? NO . HEMATOLOGY/LYMPH: DO YOU TAKE ANY BLOOD THINNERS? (FOR EXAMPLE- COUMADIN, PLAVIX, AGGRENOX, PLATEL, PRADAXA, OR XARELTO) NO . WHEN WAS YOUR LAST DOSE? DATE: TIME: . NEUROLOGY: HAVE YOU FALLEN IN THE PAST 12 MONTHS? NO . ANY NEW EXTREMITY NUMBNESS OR WEAKNESS? NO . CARDIOLOGY: DO YOU HAVE A PACEMAKER OR DEFIBRILLATOR? NO . RESPIRATORY: HAVE YOU BEEN SICK IN THE PAST WEEK? NO . FEVER NO . FLU LIKE SYMPTOMS? NO . COUGH NO . INTEGUMENTARY: DO YOU HAVE ANY RASHES OR OPEN SORES? NO . ALLERGIC/IMMUNO: ARE YOU ALLERGIC TO IV DYE? NO . ANY NEW ALLERGIES? NO . PSYCHIATRIC: DO YOU HAVE THOUGHTS OF HURTING YOURSELF OR SOMEONE ELSE? NO . ARE YOU ABUSED, NEGLECTED, OR IN AN UNSAFE ENVIRONMENT? NO . ENDOCRINOLOGY: ARE YOU DIABETIC? NO . OTHER: DO YOU NEED ANY PRESCRIPTIONS? NO . IF YES, PLEASE LIST: ____ . ANY NEW PROBLEMS WITH YOUR MEDICATIONS? NO . WHEN DID YOU LAST EAT? ____ . WHEN DID YOU LAST DRINK? ____ . WHAT DID YOU LAST DRINK? ____ . NAME OF PERSON DRIVING YOU HOME? ____ . DO YOU HAVE ANY OTHER QUESTIONS OR CONCERNS NO . VITAL SIGNS WT 208 LBS, HT 65 IN, BMI 34.61 INDEX, BP 132/80 MM HG, HR 98 /MIN, RR 18 /MIN, TEMP 98.0 F, OXYGEN SAT % 97%, SAFE IN ENV? (Y/N) YES, NA INITIALS AW 1141, REVIEWED BY: TARYN. EXAMINATION GENERAL EXAMINATION: GENERAL ALERT,ORIENTED,PLEASANT. LUNGS: CLEAR TO AUSCULTATION, BILATERAL. HEART: NORMAL S1S2. MALE GENITOURINARY:TESTICLES - NO REDDNESS OR SWELLING,HYPERSENSITIVE TO LIGHT TOUCH NO INGUINAL ADENOPATHY BILAT.. ASSESSMENTS INGUINAL NEURALGIA - M79.2 (PRIMARY) TREATMENT INGUINAL NEURALGIA NOTES: RIGHT GENITOFEMORAL NERVE BLOCK WITH IV SEDATION. PREVENTIVE MEDICINE PAIN CLINIC TEACHING: PROCEDURE TEACHING REVIEWED INFORMATION ON GENITO-FEMORAL NERVE BLOCK PROCEDURE WITH PATIENT. ALSO REVIEWED PRE-RPOCEDURE INSTRUCTIONS. PATIENT VERBBALIZED AN UNDERSTANDING. ROMULO SARKAR 05/06/2019 2:15:09 PM > . PROCEDURE CODES FA211 ESTABILISHED PATIENT [facility] FACILITY CHARGE DISPOSITION & COMMUNICATION FOLLOW UP POST/IV SEDATION APT (REASON: RIGHT GENITOFEMORAL NERVE BLOCK WITH IV SEDATION) ELECTRONICALLY SIGNED BY FAM CERRATO ON 05/20/2019 AT 04:27 PM EST DISCLAIMER : THIS IS A VISIT SUMMARY EXTRACTED FROM THE [employer] CHART. IT IS NOT A COPY OF THE [employer] PROGRESS NOTE. MARY
== END ==
LOC: M PAIN 11:30
PROVIDERS: ATTEND Nurse Practitioner Family
DX: M79.2 Neuralgia and neuritis, unspecified (principal); Z86.59 Personal history of other mental and behavioral disorders; J45.909 Unspecified asthma, uncomplicated; G47.33 Obstructive sleep apnea (adult) (pediatric); R25.1 Tremor, unspecified; F17.290 Nicotine dependence, other tobacco product, uncomplicated; Z79.899 Other long term (current) drug therapy

== ENCOUNTER → 2019-05-29 | Outpatient (CLI) | payer MEDICARE, MEDICAID ==
--- NOTE | 2019-06-05 03:44 | ECWPNPC ---
PATIENT NAME: OBED RAO : 1980 GENDER: MALE VISIT DATE: 05/29/2019 DISCHARGE DATE: 05/29/19 1618 VISIT LOCKED DATE TIME: PHYSICIAN: ANGELINA HERNANDEZ MD RESOURCE: ANGELINA HERNANDEZ MD REASON FOR APPOINTMENT 1. PRE SEDATE HISTORY OF PRESENT ILLNESS HISTORY OF PRESENT ILLNESS: PAIN THE PATIENT DESCRIBES THE PAIN... 39 YEAR OLD MALE PATIENT WITH A HISTORY OF CHRONIC PELVIC PAIN. THE PATIENT DESCRIBES THE PAIN ACHING, BURNING, SORE, TENDER, SHARP, STABBING, SHOOTING, AND CONTINUOUS WITH A PAIN SCORE OF 7-8/10 DEPENDING ON PHYSICAL ACTIVITY. THE PATIENT STATES HIS PAIN STARTED AFTER HAVING A VASECTOMY DONE IN 2018. THE PATIENT RECEIVED A LEFT GENITOFEMORAL NERVE BLOCK ON 04/09/2019, WHICH HE SAYS HAS PROVIDED HIM WITH OVER 50 PERCENT PAIN RELIEF. THE PATIENT SAYS HIS PAIN WENT FROM A PAIN SCALE OF 10/10 TO A 4/10 FOR OVER A MONTH AFTER RECEIVING THE BLOCK. THE PATIENT SAYS HE IS STILL FEELING SOME BENEFIT FROM THE BLOCK, BUT HIS PAIN IS RETURNING, THEREFORE HE WOULD LIKE TO RECEIVE THE SAME INJECTION. PATIENT DENIES UNEXPLAINABLE WEIGHT LOSS, FEVER, CHILLS, NEW CHANGES ON HIS URINARY OR BOWEL CONTROL. FALL RISK SCREENING: SCREENING :NO FALLS REPORTED IN THE LAST YEAR CURRENT MEDICATIONS TAKING PROPRANOLOL HCL 20 MG TABLET 1 TABLET ORALLY TWICE A DAY TAKING PRIMIDONE 50 MG TABLET 1 ORALLY PO BID TAKING DEPAKOTE ER 500 MG TABLET EXTENDED RELEASE 24 HOUR 3 TABS ORALLY DAILY TAKING VITAMIN C 500 MG TABLET CHEWABLE 1 TABLET ORALLY ONCE A DAY- OTC TAKING EXCEDRIN TENSION HEADACHE 500-65 MG TABLET 2 TABLETS NEEDED ORALLY THREE TIMES A DAY TAKING NICOTROL 10 MG INHALER 1 CARTRIDGE NEEDED INHALATION 16 TIME(S) A DAY TAKING OMEPRAZOLE 40 MG CAPSULE DELAYED RELEASE 1 CAPSULE ORALLY ONCE A DAY TAKING SIMVASTATIN 40 MG TABLET 1 TABLET IN THE EVENING ORALLY ONCE A DAY TAKING FLONASE ALLERGY RELIEF 50 MCG/ACT SUSPENSION 1 SPRAY IN EACH NOSTRIL NASALLY ONCE A DAY TAKING MONTELUKAST SODIUM 10 MG TABLET 1 TABLET ORALLY ONCE A DAY TAKING CYMBALTA 60 MG CAPSULE DELAYED RELEASE PARTICLES 1 CAPSULE ORALLY FOR PAIN DAILY TAKING GABAPENTIN 100 MG CAPSULE 1 CAPSULE ORALLY FOR PAIN TID, NOTES: MAKES HIM SLEEPY TAKING 1 AT BEDTIME TAKING AYR SALINE NASAL NETI RINSE 1.57 GM PACKET DIRECTED NASALLY DAILY TAKING ALBUTEROL SULFATE HFA 108 (90 BASE) MCG/ACT AEROSOL SOLUTION 2 PUFFS NEEDED INHALATION EVERY 6 HRS TAKING VITAMIN D 50 MCG (2000 UT) CAPSULE 1 CAPSULE ORALLY ONCE A DAY, NOTES: [id number] UNITS WEEKLY TAKING AYANNA ALLERGY 180 MG TABLET 1 TABLET NEEDED ORALLY ONCE A DAY NOT-TAKING CETIRIZINE HCL 10 MG TABLET 1 TABLET ORALLY ONCE A DAY NOT-TAKING ZOLMITRIPTAN 5 MG TABLET 1 TABLET NEEDED ONE TIME ORALLY ONCE A DAY NOT-TAKING SUCRALFATE 1 GM TABLET ORAL DIRECTED NOT-TAKING PERCOCET 10-325 MG TABLET 1 TABLET NEEDED ORALLY EVERY 6 HRS, NOTES: FOR SINUS SURGERY NOT-TAKING KEFLEX 500 MG CAPSULE 1 CAPSULE ORALLY EVERY 12 HRS MEDICATION LIST REVIEWED AND RECONCILED WITH THE PATIENT PAST MEDICAL HISTORY HIGH CHOLESTEROL BIPOLAR ADHD ALLERGIES ASTHMA SLEEP APNEA 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 COLONOSCOPY 03/2018: MILD NONSPECIFIC CHRONIC INFLAMMATION NOTED ON BIOPSY, NO ACTIVE COLITIS, DYSPLASIA OR GRANULOMA IDENTIFIED EGD 03/2018: MILD CHRONIC GASTRITIS NOTED ON BIOPSY, NO H-PYLORI RIANNA: MANAGED BY NEUROLOGY SCROTAL PAIN ED- FOLLOWING WITH UROLOGY CARTDINO 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 ALLERGIES SEASONAL ALLERGIES: SNEEZING, COUGHING - ALLERGY SURGICAL HISTORY PERIANAL ABCESS X2 - MIHIR, DR DEMARCO SCHAFER 10/2015 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 - MIHIR, (?REACTION TO DYE) 12/2015 R SHOULDER ROTATOR CUFF, SOS 2017 ALL UPPER TEETH EXT, TAI DENTAL, 2018 VASECTOMY- [facility]/UROLOGY, WITH SEVERE SCAR TISSUE 2018 ENDOSCOPY UPPER AND LOWER, WITH BX-[facility], ADDITIONAL TESTING 03/2018 SINUS SURGERY- POLYP FAMILY HISTORY FATHER: 80 YRS, DIAGNOSED WITH OTHER MALIGNANT NEOPLASM OF UNSPECIFIED SITE MOTHER: ALIVE 54 YRS, HYPERTENSION SIBLINGS: UNKNOWN SON(S): ALIVE DAUGHTER(S): ALIVE 1 YRS PATERNAL GRAND FATHER: UNKNOWN PATERNAL GRAND MOTHER: UNKNOWN MATERNAL GRAND FATHER: 65 YRS, DIABETES, HYPERTENSION, UNSPECIFIED HEART DISEASE MATERNAL GRAND MOTHER: 68 YRS, HYPERTENSION, UNSPECIFIED HEART DISEASE - HTN, HIGH CHOLESTEROL, ALLERGIES, ASTHMA, 1YR DAUGHTER, 1MONTH OLD SON- NO KNOWN RAGHAVENDRA ISSUES, MATERNAL GRANDPARENTS- GRANDMOTHER 65, DM, HEART, CHOLESTEROL, HTN, PARKINSONS,GRANDFATHER- 68 HEART DISEASE, HTN, NADIA CHOLESTEROL, COUGH-THROAT CLOSING-ISSUES. SOCIAL HISTORY GENERAL: TOBACCO USE ARE YOU A:FORMER SMOKER NICITROL INHALER HOW LONG HAS IT BEEN SINCE YOU LAST SMOKED?3-6 MONTHS SMOKING CESSATION INFORMATION GIVEN04/03/2018 HIV / HEP-C SCREENING HIV TEST OFFERED TO PATIENT:YES DATE OFFERED:05/01/2017 TEST ACCEPTED:NO REASON:PATIENT DECLINED OTHERS AT HOME: CHILDREN. EDUCATION LEVEL OF EDUCATION:HIGH SCHOOL DIET: REGULAR. LANGUAGE LANGUAGES SPOKEN:CHINESE DOMESTIC VIOLENCE DO YOU FEEL SAFE IN YOUR ENVIRONMENT?YES RECREATIONAL DRUG USE DRUG USE?NO EXERCISE: DAILY, WALKS. LEARNING BARRIERS / SPECIAL NEEDS CHANGE FROM LAST VISIT?NO BARRIERS TO LEARNING?NO HEARING IMPAIRED?NO VISION IMPAIRED?YES COGNITIVELY IMPAIRED?NO :CORRECTIVE LENSES READINESS TO LEARN?YES LEARNING PREFERENCES?NO LEARNING CAPABILITIES PRESENT?YES EMOTIONAL BARRIERS?NO SPECIAL DEVICES?NO CONE WORKER NEEDED?NO PAIN CLINIC PFS, CLERGY, PUBLIC HEALTH REFERRALS HAS THE PATIENT BEEN EDUCATED REGARDING HIS/HER PLAN OF CARE?YES HAS THE PATIENT BEEN EDUCATED REGARDING PAIN, THE RISK FOR PAIN, THE IMPORTANCE OF EFFECTIVE PAIN MANAGEMENT, AND THE PAIN ASSESSMENT PROCESS?YES LATEX QUESTIONNAIRE LATEX ALLERGY : HAVE YOU EVER DEVELOPED ANY TYPE OF REACTION AFTER HANDLING LATEX PRODUCTS SUCH RUBBER GLOVES, CONDOMS, DIAPHRAGMS, BALLOONS, SOCKS, OR UNDERWEAR?NO LATEX ALLERGY : HAVE YOU EVER DEVELOPED ANY TYPE OF REACTION DURING OR AFTER DENTAL APPOINTMENT, VAGINAL/RECTAL EXAMINATION, SURGICAL PROCEDURE, OR ANY OTHER EXPOSURE?NO DATE ASKED : 06/27/2018 LATEX RISK : HAVE YOU EVER HAD ANY DIFFICULTY BREATHING OR HIVES AFTER EATING OR HANDLING ANY FRUITS, OR VEGETABLES; SUCH KIWI, BANANAS, STONE FRUITS, OR CHESTNUTSNO LATEX RISK : DO YOU HAVE A PREVIOUS PERSONAL HISTORY OF MORE THAN NINE SURGERIES, SPINA BIFIDA, OR REPEATED CATHERIZATIONS? YES - PLEASE INDICATE : > 9 SURGERIES LATEX RISK : ARE YOU FREQUENTLY EXPOSED TO LATEX PRODUCTS IN YOUR OCCUPATION?NO CAFFEINE CAFFEINE USE?NO PEPSI 3 BOTTLES A DAY ADVANCE DIRECTIVE ADVANCE DIRECTIVE DISCUSSED WITH PATIENT:YES PT DOES NOT HAVE HCP AND DECLINES INFO AND ASSISTANCE AT THIS TIME. ORTHODOX [id number] SIKHISM MARITAL STATUS: SINGLE. ALCOHOL SCREENING DID YOU HAVE A DRINK CONTAINING ALCOHOL IN THE PAST YEAR?YES HOW OFTEN DID YOU HAVE SIX OR MORE DRINKS ON ONE OCCASION IN THE PAST YEAR?NEVER (0 POINTS) HOW MANY DRINKS DID YOU HAVE ON A TYPICAL DAY WHEN YOU WERE DRINKING IN THE PAST YEAR?1 OR 2 (0 POINTS) HOW OFTEN DID YOU HAVE A DRINK CONTAINING ALCOHOL IN THE PAST YEAR?MONTHLY OR LESS (1 POINT) POINTS1 INTERPRETATIONNEGATIVE OCCUPATION: UNEMPLOYED. SEXUAL HX HAD SEX IN THE LAST 12 MONTHS (VAGINAL, ORAL, OR ANAL)?YES WITHWOMEN ONLY PREVENTION STRATEGIES DISCUSSED:OTHER USE PROTECTION?NO HAVE YOU EVER HAD AN STD?NO HOSPITALIZATION/MAJOR DIAGNOSTIC PROCEDURE SURIGCAL RELATED [facility] CELLULITIS RIGHT GROIN WITH ABSCESS 10/06-10/09/17 REVIEW OF SYSTEMS REVIEWED BY: PROVIDER: ANGELINA HERNANDEZ MD . CONSTITUTIONAL: ANY CHANGE IN YOUR MEDICAL CONDITION? NO . CHILLS NO . FEVER NO . INFECTION: DO YOU HAVE NEW INFECTIONS? NO . DO YOU HAVE HISTORY OF MRSA? NO . MUSCULOSKELETAL: ANY NEW PATTERNS OF PAIN OR NUMBNESS? YES PT REPORTS THAT AFTER LAST INJECTION, HIS PAIN WAS MARKEDLY REDUCED, BUT HAS SINCE INCREASED TO WHERE IT HAD PREVIOUSLY BEEN . GASTROENTEROLOGY: ANY NEW CHANGE IN BOWEL CONTROL? NO . GENITOURINARY: ANY NEW CHANGE IN BLADDER CONTROL? NO . IS THERE A CHANCE YOU COULD BE ? NO . HEMATOLOGY/LYMPH: DO YOU TAKE ANY BLOOD THINNERS? (FOR EXAMPLE- COUMADIN, PLAVIX, AGGRENOX, PLATEL, PRADAXA, OR XARELTO) NO . WHEN WAS YOUR LAST DOSE? DATE: TIME: . NEUROLOGY: HAVE YOU FALLEN IN THE PAST 12 MONTHS? NO . ANY NEW EXTREMITY NUMBNESS OR WEAKNESS? NO . CARDIOLOGY: DO YOU HAVE A PACEMAKER OR DEFIBRILLATOR? NO . RESPIRATORY: HAVE YOU BEEN SICK IN THE PAST WEEK? NO . FEVER NO . FLU LIKE SYMPTOMS? NO . COUGH NO . INTEGUMENTARY: DO YOU HAVE ANY RASHES OR OPEN SORES? NO . ALLERGIC/IMMUNO: ARE YOU ALLERGIC TO IV DYE? NO . ANY NEW ALLERGIES? NO . PSYCHIATRIC: DO YOU HAVE THOUGHTS OF HURTING YOURSELF OR SOMEONE ELSE? NO . ARE YOU ABUSED, NEGLECTED, OR IN AN UNSAFE ENVIRONMENT? NO . ENDOCRINOLOGY: ARE YOU DIABETIC? NO . OTHER: DO YOU NEED ANY PRESCRIPTIONS? NO . IF YES, PLEASE LIST: ____ . ANY NEW PROBLEMS WITH YOUR MEDICATIONS? NO . WHEN DID YOU LAST EAT? ____ . WHEN DID YOU LAST DRINK? ____ . WHAT DID YOU LAST DRINK? ____ . NAME OF PERSON DRIVING YOU HOME? ____ . DO YOU HAVE ANY OTHER QUESTIONS OR CONCERNS NO . VITAL SIGNS WT 209.2 LBS, HT 65 IN, BMI 34.81 INDEX, BP 142/90 MM HG, HR 95 /MIN, RR 18 /MIN, TEMP 98.6 F, OXYGEN SAT % 95%, SAFE IN ENV? (Y/N) YES, NA INITIALS MS 1406, REVIEWED BY: RAYMUNDO. EXAMINATION GENERAL EXAMINATION: PATIENT IS ALERT O X 3 AND COOPERATIVE. LUNGS CLEAR, TO AUSCULTATION. HEART: NO MURMURS OR GALLOPS; FACIAL CRANIAL NERVES ARE GROSSLY NORMAL. GOOD SYMMETRY OF FACIAL MUSCLE MOVEMENT. NORMAL VISUAL FLOYD. TENDERNESS OVER THE LEFT INGUINAL AREA TOWARDS TESTICLE. 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 RAO'S PAIN MANAGEMENT CASE. THE PATIENT REPORTED RECEIVING GREAT IMPROVEMENT FOR SEVERAL MONTHS AFTER HIS LAST GENITOFEMORAL BLOCK DONE IN MARCH. THE PATIENT IS VERY UNCOMFORTABLE DUE TO HIS PAIN RETURNING, THEREFORE I WOULD LIKE TO MOVE FORWARD WITH A LEFT GENITOFEMORAL NERVE BLOCK. THE PATIENT WOULD LIKE TO MOVE FORWARD WITH IV SEDATION DUE TO DISCOMFORT, PAIN, AND ANXIETY ASSOCIATED WITH THE PROCEDURE. THE PATIENT WILL FOLLOW UP IN SEVERAL WEEKS AFTER HIS INJECTION TO SEE HOW IT IS HELPING WITH HIS PAIN. INSTRUCTIONS WERE GIVEN, QUESTIONS WERE ANSWERED, PATIENT REPORTS UNDERSTANDING AND AGREES WITH THE PLAN. I, NABILA BEAULIEU, DOCUMENTED THE ABOVE INFORMATION ACTING A SCRIBE FOR DR. HERNANDEZ. I HAVE REVIEWED THE ABOVE DOCUMENT, WRITTEN BY NABILA BEAULIEU SCRIBE AND I VERIFY THAT IT IS ACCURATE. . OTHERS START HIBICLENS LIQUID, 4 %, DIRECTED, EXTERNALLY, DAILY AT PELVIC AREA, 7 DAY(S), 1, REFILLS 0 PROCEDURE CODES FA211 ESTABILISHED PATIENT [facility] FACILITY CHARGE G8427 CURRENT MEDS W/DOSAGES DOCUMENTED G8730 PAIN ASSESS POS TOOL F/U PLAN DOC DISPOSITION & COMMUNICATION ELECTRONICALLY SIGNED BY ANGELINA HERNANDEZ MD, ON 06/04/2019 AT 01:29 PM EDT DISCLAIMER : THIS IS A VISIT SUMMARY EXTRACTED FROM THE [employer] CHART. IT IS NOT A COPY OF THE [employer] PROGRESS NOTE. MTDD
== END ==
LOC: M PAIN 14:00
PROVIDERS: ATTEND Anesthesiology
DX: G58.8 Other specified mononeuropathies (principal); Z79.899 Other long term (current) drug therapy; Z87.891 Personal history of nicotine dependence

== ENCOUNTER → 2019-06-06 | Outpatient (CLI) | payer MEDICARE, MEDICAID ==
[~2019-06-06] MED LIST changes: +BUPIVACAINE HCL 0.25% 30 ML VIAL As Ordered ONE; +ISOVUE-M 300 61% 15ML VIAL (Q9967) As Ordered ONE; +LIDOCAINE 1% SDV INJ 30 ML VIAL As Ordered ONE; +MIDAZOLAM INJ 2 MG/2 ML VIAL (J2250) As Ordered ONE; +TRIAMCINOLONE ACETONIDE SUSP 40 MG/ML VIAL (J3301) As Ordered ONE; +fentaNYL 100 MCG/2 ML INJECTION (J3010) As Ordered ONE
--- NOTE | 2019-06-18 04:07 | ECWPNPC ---
PATIENT NAME: OBED RAO : 1980 GENDER: MALE VISIT DATE: 06/06/2019 DISCHARGE DATE: 06/06/19 1545 VISIT LOCKED DATE TIME: PHYSICIAN: ANGELINA HERNANDEZ MD RESOURCE: ANGELINA HERNANDEZ MD REASON FOR APPOINTMENT 1. IV SED, LT GENTIOFEMORAL HISTORY OF PRESENT ILLNESS HISTORY OF PRESENT ILLNESS: PAIN THE PATIENT DESCRIBES THE PAIN... FALL RISK SCREENING: SCREENING :NO FALLS REPORTED IN THE LAST YEAR CURRENT MEDICATIONS TAKING PROPRANOLOL HCL 20 MG TABLET 1 TABLET ORALLY TWICE A DAY, NOTES: 06/05/19 TAKING PRIMIDONE 50 MG TABLET 1 ORALLY PO BID, NOTES: 06/05/19 TAKING DEPAKOTE ER 500 MG TABLET EXTENDED RELEASE 24 HOUR 3 TABS ORALLY DAILY, NOTES: 06/05/19 TAKING VITAMIN C 500 MG TABLET CHEWABLE 1 TABLET ORALLY ONCE A DAY- OTC, NOTES: 06/05/19 TAKING EXCEDRIN TENSION HEADACHE 500-65 MG TABLET 2 TABLETS NEEDED ORALLY THREE TIMES A DAY, NOTES: 06/05/19 TAKING NICOTROL 10 MG INHALER 1 CARTRIDGE NEEDED INHALATION 16 TIME(S) A DAY, NOTES: 06/05/19 TAKING OMEPRAZOLE 40 MG CAPSULE DELAYED RELEASE 1 CAPSULE ORALLY ONCE A DAY, NOTES: 06/05/19 TAKING SIMVASTATIN 40 MG TABLET 1 TABLET IN THE EVENING ORALLY ONCE A DAY, NOTES: 06/05/19 TAKING FLONASE ALLERGY RELIEF 50 MCG/ACT SUSPENSION 1 SPRAY IN EACH NOSTRIL NASALLY ONCE A DAY, NOTES: 06/05/19 TAKING MONTELUKAST SODIUM 10 MG TABLET 1 TABLET ORALLY ONCE A DAY, NOTES: 06/05/19 TAKING CYMBALTA 60 MG CAPSULE DELAYED RELEASE PARTICLES 1 CAPSULE ORALLY FOR PAIN DAILY, NOTES: 06/05/19 TAKING GABAPENTIN 100 MG CAPSULE 1 CAPSULE ORALLY FOR PAIN TID, NOTES: 06/05/19 TAKING AYR SALINE NASAL NETI RINSE 1.57 GM PACKET DIRECTED NASALLY DAILY, NOTES: 06/05/19 TAKING ALBUTEROL SULFATE HFA 108 (90 BASE) MCG/ACT AEROSOL SOLUTION 2 PUFFS NEEDED INHALATION EVERY 6 HRS, NOTES: 06/05/19 TAKING VITAMIN D 50 MCG (2000 UT) CAPSULE 1 CAPSULE ORALLY ONCE A DAY, NOTES: LAST WEEK TAKING AYANNA ALLERGY 180 MG TABLET 1 TABLET NEEDED ORALLY ONCE A DAY, NOTES: 06/05/19 TAKING HIBICLENS 4 % LIQUID DIRECTED EXTERNALLY DAILY AT PELVIC AREA, NOTES: 06/05/19 NOT-TAKING CETIRIZINE HCL 10 MG TABLET 1 TABLET ORALLY ONCE A DAY NOT-TAKING ZOLMITRIPTAN 5 MG TABLET 1 TABLET NEEDED ONE TIME ORALLY ONCE A DAY NOT-TAKING SUCRALFATE 1 GM TABLET ORAL DIRECTED NOT-TAKING PERCOCET 10-325 MG TABLET 1 TABLET NEEDED ORALLY EVERY 6 HRS, NOTES: FOR SINUS SURGERY NOT-TAKING KEFLEX 500 MG CAPSULE 1 CAPSULE ORALLY EVERY 12 HRS MEDICATION LIST REVIEWED AND RECONCILED WITH THE PATIENT PAST MEDICAL HISTORY HIGH CHOLESTEROL BIPOLAR ADHD ALLERGIES ASTHMA SLEEP APNEA 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 COLONOSCOPY 03/2018: MILD NONSPECIFIC CHRONIC INFLAMMATION NOTED ON BIOPSY, NO ACTIVE COLITIS, DYSPLASIA OR GRANULOMA IDENTIFIED EGD 03/2018: MILD CHRONIC GASTRITIS NOTED ON BIOPSY, NO H-PYLORI RIANNA: MANAGED BY NEUROLOGY SCROTAL PAIN ED- FOLLOWING WITH UROLOGY CARTHAGE 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 ALLERGIES SEASONAL ALLERGIES: SNEEZING, COUGHING - ALLERGY SURGICAL HISTORY PERIANAL ABCESS X2 - MIHIR, DR DEMARCO SCHAFER 10/2015 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 - MIHIR, (?REACTION TO DYE) 12/2015 R SHOULDER ROTATOR CUFF, SOS 2017 ALL UPPER TEETH EXT, TAI DENTAL, 2018 VASECTOMY- [facility]/UROLOGY, WITH SEVERE SCAR TISSUE 2018 ENDOSCOPY UPPER AND LOWER, WITH BX-[facility], ADDITIONAL TESTING 03/2018 SINUS SURGERY- POLYP FAMILY HISTORY FATHER: 80 YRS, DIAGNOSED WITH OTHER MALIGNANT NEOPLASM OF UNSPECIFIED SITE MOTHER: ALIVE 54 YRS, HYPERTENSION SIBLINGS: UNKNOWN SON(S): ALIVE DAUGHTER(S): ALIVE 1 YRS PATERNAL GRAND FATHER: UNKNOWN PATERNAL GRAND MOTHER: UNKNOWN MATERNAL GRAND FATHER: 65 YRS, HYPERTENSION, UNSPECIFIED HEART DISEASE, DIABETES MATERNAL GRAND MOTHER: 68 YRS, UNSPECIFIED HEART DISEASE, HYPERTENSION - HTN, HIGH CHOLESTEROL, ALLERGIES, ASTHMA, 1YR DAUGHTER, 1MONTH OLD SON- NO KNOWN RAGHAVENDRA ISSUES, MATERNAL GRANDPARENTS- GRANDMOTHER 65, DM, HEART, CHOLESTEROL, HTN, PARKINSONS,GRANDFATHER- 68 HEART DISEASE, HTN, NADIA CHOLESTEROL, COUGH-THROAT CLOSING-ISSUES. SOCIAL HISTORY GENERAL: TOBACCO USE ARE YOU A:FORMER SMOKER NICITROL INHALER HOW LONG HAS IT BEEN SINCE YOU LAST SMOKED?3-6 MONTHS SMOKING CESSATION INFORMATION GIVEN06/06/2019 HIV / HEP-C SCREENING HIV TEST OFFERED TO PATIENT:YES DATE OFFERED:05/01/2017 TEST ACCEPTED:NO REASON:PATIENT DECLINED OTHERS AT HOME: CHILDREN. EDUCATION LEVEL OF EDUCATION:HIGH SCHOOL DIET: REGULAR. LANGUAGE LANGUAGES SPOKEN:[place]ATVIAN DOMESTIC VIOLENCE DO YOU FEEL SAFE IN YOUR ENVIRONMENT?YES RECREATIONAL DRUG USE DRUG USE?NO EXERCISE: DAILY, WALKS. LEARNING BARRIERS / SPECIAL NEEDS CHANGE FROM LAST VISIT?NO BARRIERS TO LEARNING?NO HEARING IMPAIRED?NO VISION IMPAIRED?YES COGNITIVELY IMPAIRED?NO :CORRECTIVE LENSES READINESS TO LEARN?YES LEARNING PREFERENCES?NO LEARNING CAPABILITIES PRESENT?YES EMOTIONAL BARRIERS?NO SPECIAL DEVICES?NO EQUITY ANALYST NEEDED?NO PAIN CLINIC PFS, CLERGY, PUBLIC HEALTH REFERRALS HAS THE PATIENT BEEN EDUCATED REGARDING HIS/HER PLAN OF CARE?YES HAS THE PATIENT BEEN EDUCATED REGARDING PAIN, THE RISK FOR PAIN, THE IMPORTANCE OF EFFECTIVE PAIN MANAGEMENT, AND THE PAIN ASSESSMENT PROCESS?YES LATEX QUESTIONNAIRE LATEX ALLERGY : HAVE YOU EVER DEVELOPED ANY TYPE OF REACTION AFTER HANDLING LATEX PRODUCTS SUCH RUBBER GLOVES, CONDOMS, DIAPHRAGMS, BALLOONS, SOCKS, OR UNDERWEAR?NO LATEX ALLERGY : HAVE YOU EVER DEVELOPED ANY TYPE OF REACTION DURING OR AFTER DENTAL APPOINTMENT, VAGINAL/RECTAL EXAMINATION, SURGICAL PROCEDURE, OR ANY OTHER EXPOSURE?NO DATE ASKED : 06/27/2018 LATEX RISK : HAVE YOU EVER HAD ANY DIFFICULTY BREATHING OR HIVES AFTER EATING OR HANDLING ANY FRUITS, OR VEGETABLES; SUCH KIWI, BANANAS, STONE FRUITS, OR CHESTNUTSNO LATEX RISK : DO YOU HAVE A PREVIOUS PERSONAL HISTORY OF MORE THAN NINE SURGERIES, SPINA BIFIDA, OR REPEATED CATHERIZATIONS? YES - PLEASE INDICATE : > 9 SURGERIES LATEX RISK : ARE YOU FREQUENTLY EXPOSED TO LATEX PRODUCTS IN YOUR OCCUPATION?NO CAFFEINE CAFFEINE USE?NO PEPSI 3 BOTTLES A DAY ADVANCE DIRECTIVE ADVANCE DIRECTIVE DISCUSSED WITH PATIENT:YES PT DOES NOT HAVE HCP AND DECLINES INFO AND ASSISTANCE AT THIS TIME. [employer] [id number] SPIRITISM MARITAL STATUS: SINGLE. ALCOHOL SCREENING DID YOU HAVE A DRINK CONTAINING ALCOHOL IN THE PAST YEAR?YES HOW OFTEN DID YOU HAVE SIX OR MORE DRINKS ON ONE OCCASION IN THE PAST YEAR?NEVER (0 POINTS) HOW MANY DRINKS DID YOU HAVE ON A TYPICAL DAY WHEN YOU WERE DRINKING IN THE PAST YEAR?1 OR 2 (0 POINTS) HOW OFTEN DID YOU HAVE A DRINK CONTAINING ALCOHOL IN THE PAST YEAR?MONTHLY OR LESS (1 POINT) POINTS1 INTERPRETATIONNEGATIVE OCCUPATION: UNEMPLOYED. SEXUAL HX HAD SEX IN THE LAST 12 MONTHS (VAGINAL, ORAL, OR ANAL)?YES WITHWOMEN ONLY PREVENTION STRATEGIES DISCUSSED:OTHER USE PROTECTION?NO HAVE YOU EVER HAD AN STD?NO HOSPITALIZATION/MAJOR DIAGNOSTIC PROCEDURE SURIGCAL RELATED [facility] CELLULITIS RIGHT GROIN WITH ABSCESS 10/06-10/09/17 REVIEW OF SYSTEMS REVIEWED BY: PROVIDER: . CONSTITUTIONAL: ANY CHANGE IN YOUR MEDICAL CONDITION? NO . CHILLS NO . FEVER NO . INFECTION: DO YOU HAVE NEW INFECTIONS? NO . DO YOU HAVE HISTORY OF MRSA? NO . MUSCULOSKELETAL: ANY NEW PATTERNS OF PAIN OR NUMBNESS? NO . GASTROENTEROLOGY: ANY NEW CHANGE IN BOWEL CONTROL? NO . GENITOURINARY: ANY NEW CHANGE IN BLADDER CONTROL? NO . IS THERE A CHANCE YOU COULD BE ? NO . HEMATOLOGY/LYMPH: DO YOU TAKE ANY BLOOD THINNERS? (FOR EXAMPLE- COUMADIN, PLAVIX, AGGRENOX, PLATEL, PRADAXA, OR XARELTO) NO . WHEN WAS YOUR LAST DOSE? DATE: TIME: . NEUROLOGY: HAVE YOU FALLEN IN THE PAST 12 MONTHS? NO . ANY NEW EXTREMITY NUMBNESS OR WEAKNESS? NO . CARDIOLOGY: DO YOU HAVE A PACEMAKER OR DEFIBRILLATOR? NO . RESPIRATORY: HAVE YOU BEEN SICK IN THE PAST WEEK? NO . FEVER NO . FLU LIKE SYMPTOMS? NO . COUGH NO . INTEGUMENTARY: DO YOU HAVE ANY RASHES OR OPEN SORES? NO . ALLERGIC/IMMUNO: ARE YOU ALLERGIC TO IV DYE? NO . ANY NEW ALLERGIES? NO . PSYCHIATRIC: DO YOU HAVE THOUGHTS OF HURTING YOURSELF OR SOMEONE ELSE? NO . ARE YOU ABUSED, NEGLECTED, OR IN AN UNSAFE ENVIRONMENT? NO . ENDOCRINOLOGY: ARE YOU DIABETIC? NO . OTHER: DO YOU NEED ANY PRESCRIPTIONS? NO . IF YES, PLEASE LIST: ____ . ANY NEW PROBLEMS WITH YOUR MEDICATIONS? NO . WHEN DID YOU LAST EAT? 06/05/192129 . WHEN DID YOU LAST DRINK? 06/05/192199 . WHAT DID YOU LAST DRINK? WATER . NAME OF PERSON DRIVING YOU HOME? MY AUNT . DO YOU HAVE ANY OTHER QUESTIONS OR CONCERNS NO . VITAL SIGNS WT 206.6 LBS, HT 65 IN, BMI 34.38 INDEX, BP 127/75 MM HG, HR 81 /MIN, RR 18 /MIN, TEMP 97.1 F, OXYGEN SAT % 98%, SAFE IN ENV? (Y/N) Y, NA INITIALS MS 1220, REVIEWED BY: CHERIE. 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 RAO IS A 39 YEAR OLD MALE PATIENT WITH A HISTORY OF LEFT TESTICULAR PAIN AND INGUINAL PAIN. I HAVE PERFORMED GENITOFEMORAL NERVE BLOCKS IN THE PAST, WHICH HAS PROVIDED ADEQUATE PAIN RELIEF FOR THE PATIENT. THE PATIENT WANTS TO HAVE THIS PROCEDURE DONE AGAIN. THE PATIENT WOULD LIKE TO MOVE FORWARD WITH IV SEDATION DUE TO DISCOMFORT, PAIN, AND ANXIETY ASSOCIATED WITH THE PROCEDURE. I WENT THROUGH THE RISKS, ALTERNATIVES, AND BENEFITS ASSOCIATED WITH THIS PROCEDURE AND THE PATIENT EXPRESSED THAT HE WOULD LIKE TO PROCEED. THE PATIENT DENIES UNEXPLAINABLE WEIGHT LOSS, FEVER, CHILLS, OR CHANGES IN URINARY OR BOWEL CONTROL. PROCEDURE NOTE: AFTER CONSENT WAS SIGNED, THE PATIENT WAS BROUGHT TO THE PROCEDURE ROOM AND PLACE IN THE SUPINE POSITION. THE LEFT GENITOFEMORAL AREA WAS CLEANED WITH CHLORAPREP SOLUTION AND DRAPED ASEPTICALLY. THE PROCEDURE WAS DONE UNDER STERILE STANDARD TECHNIQUES. I CHECKED THE LOCATION OF THE FEMORAL ARTHERY. THEN, WITH THE ASSISTANCE OF A NERVE STIMULATOR, I WENT APPROXIMATELY 1 INCH LATERAL TO THE SYMPHYSIS PUBIS, FIRST AT 3.0 VOLTS AND THEN AT 1.0 VOLTS. THE PATIENT WAS HAVING STIMULATION TOWARDS THE RIGHT TESTICLE WHERE HIS USUAL PAIN IS LOCATED. I INJECTED THERE A TOTAL OF 20 ML OF BUPIVACAINE 0.125% AND KENALOG 40 MG. THERE WAS NO EVIDENCE OF BLOOD, PARESTHESIA OR VISCERAL PUNCTURE. THERE WAS NO EVIDENCE OF ANY COMPLICATIONS. THE PATIENT TOLERATED THE PROCEDURE WITHOUT COMPLICATIONS AND WAS SENT TO THE RECOVERY ROOM WHERE HE WAS MOVING HIS EXTREMITIES AND DOING WELL. PATIENT RECEIVED VERSED 1 MG AND FENTANYL 100 MCG IV DIVIDED DOSES. FACE TO FACE TIME WAS 18 MINUTES.POST-PROCEDURE NOTE: I WILL SEE THE PATIENT IN A FOLLOW UP IN THE NEXT FEW WEEKS. WE ARE LOOKING FOR LONG LASTING PAIN RELIEVE WITH THIS INTERVENTION. THERE WERE NO COMPLICATIONS. INSTRUCTIONS WERE GIVEN QUESTIONS WERE ANSWERED AND THE PATIENT REPORTS UNDERSTANDING AND AGREES. I, NABILA BEAULIEU, DOCUMENTED THE ABOVE INFORMATION ACTING A SCRIBE FOR DR. HERNANDEZ. I HAVE REVIEWED THE ABOVE DOCUMENT, WRITTEN BY NABILA BEAULIEU SCRIBE AND I VERIFY THAT IT IS ACCURATE. PROCEDURE CODES 32958 N BLOCK INJ ILIO-ING/HYPOGI, MODIFIERS: [place] [address] MOD SED SAME PHYS/QHP 5/>YRS DISPOSITION & COMMUNICATION FOLLOW UP 3 WEEKS ELECTRONICALLY SIGNED BY ANGELINA HERNANDEZ MD, MD ON 06/17/2019 AT 01:37 PM EDT DISCLAIMER : THIS IS A VISIT SUMMARY EXTRACTED FROM THE [employer] CHART. IT IS NOT A COPY OF THE [employer] PROGRESS NOTE. MARY
== END ==
LOC: M PAIN 11:15
PROVIDERS: ATTEND Anesthesiology
DX: G58.8 Other specified mononeuropathies (principal); Z79.899 Other long term (current) drug therapy; Z87.891 Personal history of nicotine dependence
CPT/HCPCS: 64425; 99152; J2250; J3010; J3301; Q9967

== ENCOUNTER → 2019-06-20 | Outpatient (CLI) | payer MEDICARE, MEDICAID ==
[~2019-06-20] MED LIST changes: -BUPIVACAINE HCL 0.25% 30 ML VIAL As Ordered ONE; -ISOVUE-M 300 61% 15ML VIAL (Q9967) As Ordered ONE; -LIDOCAINE 1% SDV INJ 30 ML VIAL As Ordered ONE; -MIDAZOLAM INJ 2 MG/2 ML VIAL (J2250) As Ordered ONE; -TRIAMCINOLONE ACETONIDE SUSP 40 MG/ML VIAL (J3301) As Ordered ONE; -fentaNYL 100 MCG/2 ML INJECTION (J3010) As Ordered ONE
--- NOTE | 2019-06-21 03:54 | ECWPNPC ---
PATIENT NAME: OBED RAO : 1980 GENDER: MALE VISIT DATE: 06/20/2019 DISCHARGE DATE: 06/20/19 1416 VISIT LOCKED DATE TIME: PHYSICIAN: BROCK QUIGLEY RESOURCE: BROCK QUIGLEY REASON FOR APPOINTMENT 1. POST PROCEDURE HISTORY OF PRESENT ILLNESS HISTORY OF PRESENT ILLNESS: PERMISSION FOR TELEPHONE VISIT RECEIVED FROM PATIENT. HAD LEFT GENITOFEMORAL NERVE BLOCK WITH IV SEDATION LEFT SIDE ON 06/06/2019. REPORTING MARKED REDUCTION IN PAIN THAT CONTINUES TODAY. RATING PAIN LEVEL A 3/10 VAS. SUFFERS FROM RIGHT TESTICULAR PAIN, WHICH SEEMS TO BE INCREASING. HE WAS WONDERING IF HE COULD HAVE RIGHT SIDE NERVE BLOCK DONE. PSYCHIATRY RECENTLY STOPPED CYMBALTA DUE TO PATIENT'S COMPLAINTS OF DAYTIME FATIGUE. THIS WAS STOPPED A FEW DAYS AGO. CONTINUES ON GABAPENTIN 100 MG 2-3 TIMES PER DAY. DISCUSSED TREATMENT OPTIONS. PAIN THE PATIENT DESCRIBES THE PAIN... FALL RISK SCREENING: SCREENING :NO FALLS REPORTED IN THE LAST YEAR CURRENT MEDICATIONS TAKING PROPRANOLOL HCL 20 MG TABLET 1 TABLET ORALLY TWICE A DAY TAKING PRIMIDONE 50 MG TABLET 1 ORALLY PO BID TAKING DEPAKOTE ER 500 MG TABLET EXTENDED RELEASE 24 HOUR 3 TABS ORALLY DAILY TAKING VITAMIN C 500 MG TABLET CHEWABLE 1 TABLET ORALLY ONCE A DAY- OTC TAKING EXCEDRIN TENSION HEADACHE 500-65 MG TABLET 2 TABLETS NEEDED ORALLY THREE TIMES A DAY TAKING NICOTROL 10 MG INHALER 1 CARTRIDGE NEEDED INHALATION 16 TIME(S) A DAY TAKING OMEPRAZOLE 40 MG CAPSULE DELAYED RELEASE 1 CAPSULE ORALLY ONCE A DAY TAKING SIMVASTATIN 40 MG TABLET 1 TABLET IN THE EVENING ORALLY ONCE A DAY TAKING FLONASE ALLERGY RELIEF 50 MCG/ACT SUSPENSION 1 SPRAY IN EACH NOSTRIL NASALLY ONCE A DAY TAKING MONTELUKAST SODIUM 10 MG TABLET 1 TABLET ORALLY ONCE A DAY TAKING GABAPENTIN 100 MG CAPSULE 1 CAPSULE ORALLY FOR PAIN TID TAKING AYR SALINE NASAL NETI RINSE 1.57 GM PACKET DIRECTED NASALLY DAILY TAKING ALBUTEROL SULFATE HFA 108 (90 BASE) MCG/ACT AEROSOL SOLUTION 2 PUFFS NEEDED INHALATION EVERY 6 HRS TAKING VITAMIN D 50 MCG (2000 UT) CAPSULE 1 CAPSULE ORALLY ONCE A DAY TAKING AYANNA ALLERGY 180 MG TABLET 1 TABLET NEEDED ORALLY ONCE A DAY NOT-TAKING CYMBALTA 60 MG CAPSULE DELAYED RELEASE PARTICLES 1 CAPSULE ORALLY FOR PAIN DAILY NOT-TAKING HIBICLENS 4 % LIQUID DIRECTED EXTERNALLY DAILY AT PELVIC AREA NOT-TAKING CETIRIZINE HCL 10 MG TABLET 1 TABLET ORALLY ONCE A DAY NOT-TAKING ZOLMITRIPTAN 5 MG TABLET 1 TABLET NEEDED ONE TIME ORALLY ONCE A DAY NOT-TAKING SUCRALFATE 1 GM TABLET ORAL DIRECTED NOT-TAKING PERCOCET 10-325 MG TABLET 1 TABLET NEEDED ORALLY EVERY 6 HRS, NOTES: FOR SINUS SURGERY NOT-TAKING KEFLEX 500 MG CAPSULE 1 CAPSULE ORALLY EVERY 12 HRS MEDICATION LIST REVIEWED AND RECONCILED WITH THE PATIENT PAST MEDICAL HISTORY HIGH CHOLESTEROL BIPOLAR ADHD ALLERGIES ASTHMA SLEEP APNEA 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 COLONOSCOPY 03/2018: MILD NONSPECIFIC CHRONIC INFLAMMATION NOTED ON BIOPSY, NO ACTIVE COLITIS, DYSPLASIA OR GRANULOMA IDENTIFIED EGD 03/2018: MILD CHRONIC GASTRITIS NOTED ON BIOPSY, NO H-PYLORI RIANNA: MANAGED BY NEUROLOGY SCROTAL PAIN ED- FOLLOWING WITH UROLOGY MIHIR VARICOSE VIENS TESTICLES- UROLOGY CARTISAMARGE TREMORS ALLERGIES SEASONAL ALLERGIES: SNEEZING, COUGHING - ALLERGY SURGICAL HISTORY PERIANAL ABCESS X2 - MIHIR, DR DEMARCO SCHAFER 10/2015 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 - MIHIR, (?REACTION TO DYE) 12/2015 R SHOULDER ROTATOR CUFF, SOS 2017 ALL UPPER TEETH EXT, TAI DENTAL, 2018 VASECTOMY- [facility]/UROLOGY, WITH SEVERE SCAR TISSUE 2018 ENDOSCOPY UPPER AND LOWER, WITH BX-[facility], ADDITIONAL TESTING 03/2018 SINUS SURGERY- POLYP FAMILY HISTORY FATHER: 80 YRS, DIAGNOSED WITH OTHER MALIGNANT NEOPLASM OF UNSPECIFIED SITE MOTHER: ALIVE 54 YRS, HYPERTENSION SIBLINGS: UNKNOWN SON(S): ALIVE DAUGHTER(S): ALIVE 1 YRS PATERNAL GRAND FATHER: UNKNOWN PATERNAL GRAND MOTHER: UNKNOWN MATERNAL GRAND FATHER: 65 YRS, DIABETES, HYPERTENSION, UNSPECIFIED HEART DISEASE MATERNAL GRAND MOTHER: 68 YRS, HYPERTENSION, UNSPECIFIED HEART DISEASE - HTN, HIGH CHOLESTEROL, ALLERGIES, ASTHMA, 1YR DAUGHTER, 1MONTH OLD SON- NO KNOWN RAGHAVENDRA ISSUES, MATERNAL GRANDPARENTS- GRANDMOTHER 65, DM, HEART, CHOLESTEROL, HTN, PARKINSONS,GRANDFATHER- 68 HEART DISEASE, HTN, NADIA CHOLESTEROL, COUGH-THROAT CLOSING-ISSUES. SOCIAL HISTORY GENERAL: TOBACCO USE ARE YOU A:FORMER SMOKER NICITROL INHALER HOW LONG HAS IT BEEN SINCE YOU LAST SMOKED?3-6 MONTHS SMOKING CESSATION INFORMATION GIVEN06/06/2019 HIV / HEP-C SCREENING HIV TEST OFFERED TO PATIENT:YES DATE OFFERED:05/01/2017 TEST ACCEPTED:NO REASON:PATIENT DECLINED OTHERS AT HOME: CHILDREN. EDUCATION LEVEL OF EDUCATION:HIGH SCHOOL DIET: REGULAR. LANGUAGE LANGUAGES SPOKEN:ROMANIAN DOMESTIC VIOLENCE DO YOU FEEL SAFE IN YOUR ENVIRONMENT?YES NEW PATIENT PAIN DIARY TODAY'S VISITNOTES 06/20/2019 PATIENT DESCRIBES PAIN :ACHING, TENDER, THROBBING FROM 0-10, WHAT LEVEL IS YOUR PAIN TODAY?3 RECREATIONAL DRUG USE DRUG USE?NO EXERCISE: DAILY, WALKS. LEARNING BARRIERS / SPECIAL NEEDS CHANGE FROM LAST VISIT?NO BARRIERS TO LEARNING?NO HEARING IMPAIRED?NO VISION IMPAIRED?YES COGNITIVELY IMPAIRED?NO :CORRECTIVE LENSES READINESS TO LEARN?YES LEARNING PREFERENCES?NO LEARNING CAPABILITIES PRESENT?YES EMOTIONAL BARRIERS?NO SPECIAL DEVICES?NO SIEBEL CRM DEVELOPER NEEDED?NO PAIN CLINIC PFS, CLERGY, PUBLIC HEALTH REFERRALS HAS THE PATIENT BEEN EDUCATED REGARDING HIS/HER PLAN OF CARE?YES HAS THE PATIENT BEEN EDUCATED REGARDING PAIN, THE RISK FOR PAIN, THE IMPORTANCE OF EFFECTIVE PAIN MANAGEMENT, AND THE PAIN ASSESSMENT PROCESS?YES LATEX QUESTIONNAIRE LATEX ALLERGY : HAVE YOU EVER DEVELOPED ANY TYPE OF REACTION AFTER HANDLING LATEX PRODUCTS SUCH RUBBER GLOVES, CONDOMS, DIAPHRAGMS, BALLOONS, SOCKS, OR UNDERWEAR?NO LATEX ALLERGY : HAVE YOU EVER DEVELOPED ANY TYPE OF REACTION DURING OR AFTER DENTAL APPOINTMENT, VAGINAL/RECTAL EXAMINATION, SURGICAL PROCEDURE, OR ANY OTHER EXPOSURE?NO LATEX RISK : HAVE YOU EVER HAD ANY DIFFICULTY BREATHING OR HIVES AFTER EATING OR HANDLING ANY FRUITS, OR VEGETABLES; SUCH KIWI, BANANAS, STONE FRUITS, OR CHESTNUTSNO LATEX RISK : DO YOU HAVE A PREVIOUS PERSONAL HISTORY OF MORE THAN NINE SURGERIES, SPINA BIFIDA, OR REPEATED CATHERIZATIONS? YES - PLEASE INDICATE : > 9 SURGERIES LATEX RISK : ARE YOU FREQUENTLY EXPOSED TO LATEX PRODUCTS IN YOUR OCCUPATION?NO DATE ASKED : 06/27/2018 CAFFEINE CAFFEINE USE?NO PEPSI 3 BOTTLES A DAY ADVANCE DIRECTIVE ADVANCE DIRECTIVE DISCUSSED WITH PATIENT:YES PT DOES NOT HAVE HCP AND DECLINES INFO AND ASSISTANCE AT THIS TIME. MOSQUE [id number] BUDDHIST MARITAL STATUS: SINGLE. ALCOHOL SCREENING DID YOU HAVE A DRINK CONTAINING ALCOHOL IN THE PAST YEAR?YES HOW OFTEN DID YOU HAVE SIX OR MORE DRINKS ON ONE OCCASION IN THE PAST YEAR?NEVER (0 POINTS) HOW MANY DRINKS DID YOU HAVE ON A TYPICAL DAY WHEN YOU WERE DRINKING IN THE PAST YEAR?1 OR 2 (0 POINTS) HOW OFTEN DID YOU HAVE A DRINK CONTAINING ALCOHOL IN THE PAST YEAR?MONTHLY OR LESS (1 POINT) POINTS1 INTERPRETATIONNEGATIVE OCCUPATION: UNEMPLOYED. SEXUAL HX HAD SEX IN THE LAST 12 MONTHS (VAGINAL, ORAL, OR ANAL)?YES WITHWOMEN ONLY PREVENTION STRATEGIES DISCUSSED:OTHER USE PROTECTION?NO HAVE YOU EVER HAD AN STD?NO HOSPITALIZATION/MAJOR DIAGNOSTIC PROCEDURE SURIGCAL RELATED [facility] CELLULITIS RIGHT GROIN WITH ABSCESS 10/06-10/09/17 REVIEW OF SYSTEMS REVIEWED BY: PROVIDER: BROCK OTTO . CONSTITUTIONAL: ANY CHANGE IN YOUR MEDICAL CONDITION? NO . CHILLS NO . FEVER NO . INFECTION: DO YOU HAVE NEW INFECTIONS? NO . DO YOU HAVE HISTORY OF MRSA? NO . MUSCULOSKELETAL: ANY NEW PATTERNS OF PAIN OR NUMBNESS? NO . GASTROENTEROLOGY: ANY NEW CHANGE IN BOWEL CONTROL? NO . GENITOURINARY: ANY NEW CHANGE IN BLADDER CONTROL? NO . IS THERE A CHANCE YOU COULD BE ? NO . HEMATOLOGY/LYMPH: DO YOU TAKE ANY BLOOD THINNERS? (FOR EXAMPLE- COUMADIN, PLAVIX, AGGRENOX, PLATEL, PRADAXA, OR XARELTO) NO . WHEN WAS YOUR LAST DOSE? DATE: TIME: . NEUROLOGY: HAVE YOU FALLEN IN THE PAST 12 MONTHS? NO . ANY NEW EXTREMITY NUMBNESS OR WEAKNESS? NO . CARDIOLOGY: DO YOU HAVE A PACEMAKER OR DEFIBRILLATOR? NO . RESPIRATORY: HAVE YOU BEEN SICK IN THE PAST WEEK? NO . FEVER NO . FLU LIKE SYMPTOMS? NO . COUGH NO . INTEGUMENTARY: DO YOU HAVE ANY RASHES OR OPEN SORES? NO . ALLERGIC/IMMUNO: ARE YOU ALLERGIC TO IV DYE? NO . ANY NEW ALLERGIES? NO . PSYCHIATRIC: DO YOU HAVE THOUGHTS OF HURTING YOURSELF OR SOMEONE ELSE? NO . ARE YOU ABUSED, NEGLECTED, OR IN AN UNSAFE ENVIRONMENT? NO . ENDOCRINOLOGY: ARE YOU DIABETIC? NO . OTHER: DO YOU NEED ANY PRESCRIPTIONS? YES . IF YES, PLEASE LIST: ____GABAPENTIN . ANY NEW PROBLEMS WITH YOUR MEDICATIONS? YES, THE CYMBALTA WAS MAKING HIM OVERLY TIRED - STOPPED BY PSYCH DOCTOR . WHEN DID YOU LAST EAT? ____ . WHEN DID YOU LAST DRINK? ____ . WHAT DID YOU LAST DRINK? ____ . NAME OF PERSON DRIVING YOU HOME? ____ . DO YOU HAVE ANY OTHER QUESTIONS OR CONCERNS YES, WOULD LIKE TO DISCUSS CYMBALTA - STOPPED BY PSYCH DOCTOR . 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 DISPOSITION & COMMUNICATION FOLLOW UP PREPROCEDURE F/U-CONSIDER RIGHT GENOFEMORAL BLOCK W IV SEDATION ELECTRONICALLY SIGNED BY FAM CERRATO ON 06/20/2019 AT 02:15 PM EDT DISCLAIMER : THIS IS A VISIT SUMMARY EXTRACTED FROM THE [employer] CHART. IT IS NOT A COPY OF THE [employer] PROGRESS NOTE. SHARLAD
== END ==
LOC: M PAIN 11:30
PROVIDERS: ATTEND Nurse Practitioner Family
DX: G58.8 Other specified mononeuropathies (principal)

== ENCOUNTER → 2019-07-11 | Outpatient (CLI) | payer MEDICARE, MEDICAID ==
[~2019-07-11] MED LIST changes: +VITA-243 PO; -VITA500T PO
--- NOTE | 2019-07-12 00:31 | ECWPNPC ---
PATIENT NAME: OBED RAO : 1980 GENDER: MALE VISIT DATE: 07/11/2019 DISCHARGE DATE: 07/11/19 0959 VISIT LOCKED DATE TIME: PHYSICIAN: BROCK QUIGLEY RESOURCE: BROCK QUIGLEY REASON FOR APPOINTMENT 1. PRE PROCEDURE F/U HISTORY OF PRESENT ILLNESS HISTORY OF PRESENT ILLNESS: HERE FOR PREPROCEDURE VISIT TO CONSIDER RIGHT GENITOFEMORAL NERVE BLOCK. HAD LEFT GENITOFEMORAL NERVE BLOCK IN MAY AND CONTINUES TO BENEFIT FROM THAT ON THE LEFT SIDE. HAVING CONSTANT ACHING RIGHT GENITOFEMORAL NERVE PAIN THAT SEEMS TO BE GETTING WORSE OVER THE PAST FEW MONTHS. HE IS REQUESTING A RIGHT GENITOFEMORAL NERVE BLOCK. RATING PAIN INTENSITY 5/10 VAS. DISCUSSED MEDICATION AND TREATMENT OPTIONS. PAIN THE PATIENT DESCRIBES THE PAIN... FALL RISK SCREENING: SCREENING :NO FALLS REPORTED IN THE LAST YEAR CURRENT MEDICATIONS TAKING PROPRANOLOL HCL 20 MG TABLET 1 TABLET ORALLY TWICE A DAY TAKING PRIMIDONE 50 MG TABLET 1 ORALLY PO BID TAKING DEPAKOTE ER 500 MG TABLET EXTENDED RELEASE 24 HOUR 3 TABS ORALLY DAILY TAKING VITAMIN C 500 MG TABLET CHEWABLE 1 TABLET ORALLY ONCE A DAY- OTC TAKING EXCEDRIN TENSION HEADACHE 500-65 MG TABLET 2 TABLETS NEEDED ORALLY THREE TIMES A DAY TAKING NICOTROL 10 MG INHALER 1 CARTRIDGE NEEDED INHALATION 16 TIME(S) A DAY TAKING OMEPRAZOLE 40 MG CAPSULE DELAYED RELEASE 1 CAPSULE ORALLY ONCE A DAY TAKING SIMVASTATIN 40 MG TABLET 1 TABLET IN THE EVENING ORALLY ONCE A DAY TAKING FLONASE ALLERGY RELIEF 50 MCG/ACT SUSPENSION 1 SPRAY IN EACH NOSTRIL NASALLY ONCE A DAY TAKING MONTELUKAST SODIUM 10 MG TABLET 1 TABLET ORALLY ONCE A DAY TAKING AYR SALINE NASAL NETI RINSE 1.57 GM PACKET DIRECTED NASALLY DAILY TAKING ALBUTEROL SULFATE HFA 108 (90 BASE) MCG/ACT AEROSOL SOLUTION 2 PUFFS NEEDED INHALATION EVERY 6 HRS TAKING VITAMIN D 50 MCG (2000 UT) CAPSULE 1 CAPSULE ORALLY ONCE A DAY TAKING AYANNA ALLERGY 180 MG TABLET 1 TABLET NEEDED ORALLY ONCE A DAY TAKING GABAPENTIN 100 MG CAPSULE 1 CAPSULE ORALLY FOR PAIN TID TAKING AMOXICILLIN 500 MG CAPSULE 1 CAPSULE ORALLY EVERY 12 HRS NOT-TAKING CYMBALTA 60 MG CAPSULE DELAYED RELEASE PARTICLES 1 CAPSULE ORALLY FOR PAIN DAILY NOT-TAKING HIBICLENS 4 % LIQUID DIRECTED EXTERNALLY DAILY AT PELVIC AREA NOT-TAKING CETIRIZINE HCL 10 MG TABLET 1 TABLET ORALLY ONCE A DAY NOT-TAKING ZOLMITRIPTAN 5 MG TABLET 1 TABLET NEEDED ONE TIME ORALLY ONCE A DAY NOT-TAKING SUCRALFATE 1 GM TABLET ORAL DIRECTED NOT-TAKING PERCOCET 10-325 MG TABLET 1 TABLET NEEDED ORALLY EVERY 6 HRS, NOTES: FOR SINUS SURGERY NOT-TAKING KEFLEX 500 MG CAPSULE 1 CAPSULE ORALLY EVERY 12 HRS MEDICATION LIST REVIEWED AND RECONCILED WITH THE PATIENT PAST MEDICAL HISTORY HIGH CHOLESTEROL BIPOLAR ADHD ALLERGIES ASTHMA SLEEP APNEA 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 COLONOSCOPY 03/2018: MILD NONSPECIFIC CHRONIC INFLAMMATION NOTED ON BIOPSY, NO ACTIVE COLITIS, DYSPLASIA OR GRANULOMA IDENTIFIED EGD 03/2018: MILD CHRONIC GASTRITIS NOTED ON BIOPSY, NO H-PYLORI RIANNA: MANAGED BY NEUROLOGY SCROTAL PAIN ED- FOLLOWING WITH UROLOGY MIHIR VARICOSE VIENS TESTICLES- UROLOGY CARTISAMARGE TREMORS SINUS INFECTION ALLERGIES SEASONAL ALLERGIES: SNEEZING, COUGHING - ALLERGY SURGICAL HISTORY PERIANAL ABCESS X2 - MIHIR, DR DEMARCO SCHAFER 10/2015 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 - MIHIR, (?REACTION TO DYE) 12/2015 R SHOULDER ROTATOR CUFF, SOS 2017 ALL UPPER TEETH EXT, TAI DENTAL, 2018 VASECTOMY- [facility]/UROLOGY, WITH SEVERE SCAR TISSUE 2018 ENDOSCOPY UPPER AND LOWER, WITH BX-[facility], ADDITIONAL TESTING 03/2018 SINUS SURGERY- POLYP FAMILY HISTORY FATHER: 80 YRS, DIAGNOSED WITH OTHER MALIGNANT NEOPLASM OF UNSPECIFIED SITE MOTHER: ALIVE 54 YRS, HYPERTENSION SIBLINGS: UNKNOWN SON(S): ALIVE DAUGHTER(S): ALIVE 1 YRS PATERNAL GRAND FATHER: UNKNOWN PATERNAL GRAND MOTHER: UNKNOWN MATERNAL GRAND FATHER: 65 YRS, HYPERTENSION, DIABETES, UNSPECIFIED HEART DISEASE MATERNAL GRAND MOTHER: 68 YRS, UNSPECIFIED HEART DISEASE, HYPERTENSION - HTN, HIGH CHOLESTEROL, ALLERGIES, ASTHMA, 1YR DAUGHTER, 1MONTH OLD SON- NO KNOWN RAGHAVENDRA ISSUES, MATERNAL GRANDPARENTS- GRANDMOTHER 65, DM, HEART, CHOLESTEROL, HTN, PARKINSONS,GRANDFATHER- 68 HEART DISEASE, HTN, NADIA CHOLESTEROL, COUGH-THROAT CLOSING-ISSUES. SOCIAL HISTORY GENERAL: TOBACCO USE ARE YOU A:FORMER SMOKER NICOTINE GUM HOW LONG HAS IT BEEN SINCE YOU LAST SMOKED?6-12 MONTHS SMOKING CESSATION INFORMATION GIVEN06/06/2019 HIV / HEP-C SCREENING HIV TEST OFFERED TO PATIENT:YES DATE OFFERED:05/01/2017 TEST ACCEPTED:NO REASON:PATIENT DECLINED OTHERS AT HOME: CHILDREN. EDUCATION LEVEL OF EDUCATION:HIGH SCHOOL DIET: REGULAR. LANGUAGE LANGUAGES SPOKEN:LATVIAN DOMESTIC VIOLENCE DO YOU FEEL SAFE IN YOUR ENVIRONMENT?YES NEW PATIENT PAIN DIARY TODAY'S VISITNOTES 07/11/2019 PATIENT DESCRIBES PAIN :ACHING, HAVE IT ALL THE TIME, TENDER, THROBBING FROM 0-10, WHAT LEVEL IS YOUR PAIN TODAY?5 RECREATIONAL DRUG USE DRUG USE?NO EXERCISE: DAILY, WALKS. LEARNING BARRIERS / SPECIAL NEEDS CHANGE FROM LAST VISIT?NO BARRIERS TO LEARNING?NO HEARING IMPAIRED?NO VISION IMPAIRED?YES COGNITIVELY IMPAIRED?NO :CORRECTIVE LENSES READINESS TO LEARN?YES LEARNING PREFERENCES?NO LEARNING CAPABILITIES PRESENT?YES EMOTIONAL BARRIERS?NO SPECIAL DEVICES?NO PROPERTY OFFICER NEEDED?NO PAIN CLINIC PFS, CLERGY, PUBLIC HEALTH REFERRALS HAS THE PATIENT BEEN EDUCATED REGARDING HIS/HER PLAN OF CARE?YES HAS THE PATIENT BEEN EDUCATED REGARDING PAIN, THE RISK FOR PAIN, THE IMPORTANCE OF EFFECTIVE PAIN MANAGEMENT, AND THE PAIN ASSESSMENT PROCESS?YES LATEX QUESTIONNAIRE LATEX ALLERGY : HAVE YOU EVER DEVELOPED ANY TYPE OF REACTION AFTER HANDLING LATEX PRODUCTS SUCH RUBBER GLOVES, CONDOMS, DIAPHRAGMS, BALLOONS, SOCKS, OR UNDERWEAR?NO LATEX ALLERGY : HAVE YOU EVER DEVELOPED ANY TYPE OF REACTION DURING OR AFTER DENTAL APPOINTMENT, VAGINAL/RECTAL EXAMINATION, SURGICAL PROCEDURE, OR ANY OTHER EXPOSURE?NO LATEX RISK : HAVE YOU EVER HAD ANY DIFFICULTY BREATHING OR HIVES AFTER EATING OR HANDLING ANY FRUITS, OR VEGETABLES; SUCH KIWI, BANANAS, STONE FRUITS, OR CHESTNUTSNO LATEX RISK : DO YOU HAVE A PREVIOUS PERSONAL HISTORY OF MORE THAN NINE SURGERIES, SPINA BIFIDA, OR REPEATED CATHERIZATIONS? YES - PLEASE INDICATE : > 9 SURGERIES LATEX RISK : ARE YOU FREQUENTLY EXPOSED TO LATEX PRODUCTS IN YOUR OCCUPATION?NO DATE ASKED : 07/11/2019 CAFFEINE CAFFEINE USE?NO PEPSI 3 BOTTLES A DAY ADVANCE DIRECTIVE ADVANCE DIRECTIVE DISCUSSED WITH PATIENT:YES PT DOES NOT HAVE HCP AND DECLINES INFO AND ASSISTANCE AT THIS TIME. CONGREGATION [id number] MUSLIM MARITAL STATUS: SINGLE. ALCOHOL SCREENING DID YOU HAVE A DRINK CONTAINING ALCOHOL IN THE PAST YEAR?YES HOW OFTEN DID YOU HAVE SIX OR MORE DRINKS ON ONE OCCASION IN THE PAST YEAR?NEVER (0 POINTS) HOW MANY DRINKS DID YOU HAVE ON A TYPICAL DAY WHEN YOU WERE DRINKING IN THE PAST YEAR?1 OR 2 (0 POINTS) HOW OFTEN DID YOU HAVE A DRINK CONTAINING ALCOHOL IN THE PAST YEAR?MONTHLY OR LESS (1 POINT) POINTS1 INTERPRETATIONNEGATIVE OCCUPATION: UNEMPLOYED. SEXUAL HX HAD SEX IN THE LAST 12 MONTHS (VAGINAL, ORAL, OR ANAL)?YES WITHWOMEN ONLY PREVENTION STRATEGIES DISCUSSED:OTHER USE PROTECTION?NO HAVE YOU EVER HAD AN STD?NO HOSPITALIZATION/MAJOR DIAGNOSTIC PROCEDURE SURIGCAL RELATED [facility] CELLULITIS RIGHT GROIN WITH ABSCESS 10/06-10/09/17 REVIEW OF SYSTEMS REVIEWED BY: PROVIDER: BROCK OTTO . CONSTITUTIONAL: ANY CHANGE IN YOUR MEDICAL CONDITION? NO . CHILLS NO . FEVER NO . INFECTION: DO YOU HAVE NEW INFECTIONS? YES, SINUS INFECTION - ON ANTIBIOTICS . DO YOU HAVE HISTORY OF MRSA? NO . MUSCULOSKELETAL: ANY NEW PATTERNS OF PAIN OR NUMBNESS? NO . GASTROENTEROLOGY: ANY NEW CHANGE IN BOWEL CONTROL? NO . GENITOURINARY: ANY NEW CHANGE IN BLADDER CONTROL? NO . IS THERE A CHANCE YOU COULD BE ? NO . HEMATOLOGY/LYMPH: DO YOU TAKE ANY BLOOD THINNERS? (FOR EXAMPLE- COUMADIN, PLAVIX, AGGRENOX, PLATEL, PRADAXA, OR XARELTO) NO . WHEN WAS YOUR LAST DOSE? DATE: TIME: . NEUROLOGY: HAVE YOU FALLEN IN THE PAST 12 MONTHS? NO . ANY NEW EXTREMITY NUMBNESS OR WEAKNESS? NO . CARDIOLOGY: DO YOU HAVE A PACEMAKER OR DEFIBRILLATOR? NO . RESPIRATORY: HAVE YOU BEEN SICK IN THE PAST WEEK? YES - SINUS INFECTION . FEVER NO . FLU LIKE SYMPTOMS? NO . COUGH NO . INTEGUMENTARY: DO YOU HAVE ANY RASHES OR OPEN SORES? NO . ALLERGIC/IMMUNO: ARE YOU ALLERGIC TO IV DYE? NO . ANY NEW ALLERGIES? NO . PSYCHIATRIC: DO YOU HAVE THOUGHTS OF HURTING YOURSELF OR SOMEONE ELSE? NO . ARE YOU ABUSED, NEGLECTED, OR IN AN UNSAFE ENVIRONMENT? NO . ENDOCRINOLOGY: ARE YOU DIABETIC? NO . OTHER: DO YOU NEED ANY PRESCRIPTIONS? NO . IF YES, PLEASE LIST: ____ . ANY NEW PROBLEMS WITH YOUR MEDICATIONS? NO . WHEN DID YOU LAST EAT? ____ . WHEN DID YOU LAST DRINK? ____ . WHAT DID YOU LAST DRINK? ____ . NAME OF PERSON DRIVING YOU HOME? ____ . DO YOU HAVE ANY OTHER QUESTIONS OR CONCERNS NO . VITAL SIGNS WT 206.6 LBS, HT 65 IN, BMI 34.38 INDEX, BP 131/89 MM HG, HR 91 /MIN, RR 18 /MIN, TEMP 97.4 F, OXYGEN SAT % 98%, SAFE IN ENV? (Y/N) YES, NA INITIALS AW [id number], REVIEWED BY: TARYN. EXAMINATION GENERAL EXAMINATION: GENERAL ALERT,ORIENTED,PLEASANT. LUNGS: CLEAR TO AUSCULTATION, BILATERAL. HEART: NORMAL S1S2. MALE GENITOURINARY:TESTICLES - NO REDDNESS OR SWELLING,HYPERSENSITIVE TO LIGHT TOUCH NO INGUINAL ADENOPATHY BILAT.TENDER WITH PALPATION OVER RIGHT GENOFEMORAL NERVE. 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 PREVENTIVE MEDICINE PAIN CLINIC TEACHING: PROCEDURE TEACHING REVIEWED INFORMATION ON GENITOFEMORAL NERVE BLOCK RPOCEDURE WITH PATIENT. ALSO REVIEWED PRE-PROCEDURE INSTRUCTIONS. PATIENT VERBALIZED AN UNDERSTANDING. ROMULO SARKAR 07/11/2019 10:02:01 AM > . PROCEDURE CODES FA211 ESTABILISHED PATIENT [facility] CHARGE DISPOSITION & COMMUNICATION FOLLOW UP POST-NEEDS IV PRE SED VISIT W DR Chirinos 4-6WKS (REASON: RIGHT GENITOFEMORAL NERVE BLOCK W IV SEDATION) ELECTRONICALLY SIGNED BY FAM CERRATO ON 07/11/2019 AT 01:37 PM EDT DISCLAIMER : THIS IS A VISIT SUMMARY EXTRACTED FROM THE [employer] CHART. IT IS NOT A COPY OF THE [employer] PROGRESS NOTE. MARY
== END ==
LOC: M PAIN 09:30
PROVIDERS: ATTEND Nurse Practitioner Family
DX: G58.8 Other specified mononeuropathies (principal); Z79.2 Long term (current) use of antibiotics; Z79.899 Other long term (current) drug therapy; Z87.891 Personal history of nicotine dependence

== ENCOUNTER → 2019-08-02 | Outpatient (CLI) | payer MEDICARE, MEDICAID ==
--- NOTE | 2019-08-06 00:57 | ECWPNPC ---
PATIENT NAME: OBED RAO : 1980 GENDER: MALE VISIT DATE: 08/02/2019 DISCHARGE DATE: 08/02/19 1145 VISIT LOCKED DATE TIME: PHYSICIAN: ANGELINA HERNANDEZ MD RESOURCE: ANGELINA HERNANDEZ MD REASON FOR APPOINTMENT 1. PRE SEDATE HISTORY OF PRESENT ILLNESS HISTORY OF PRESENT ILLNESS: PAIN THE PATIENT DESCRIBES THE PAIN... 39 YEAR OLD MALE PATIENT WITH A HISTORY OF CHRONIC LOW BACK PAIN. THE PATIENT DESCRIBES HIS PAIN ACHING, HAVE IT ALL THE TIME, TENDER, THROBBING WITH A PAIN SCORE OF 6-9/10 DEPENDING ON PHYSICAL ACTIVITY. THE PATIENT RECEIVED A LEFT GENITOFEMORAL NERVE BLOCK ON 06/06/2019, WHICH HE SAYS IS HELPING WITH HIS LEFT TESTICULAR PAIN, BUT THE PAIN PERSISTS ON HIS RIGHT SIDE. THE PATIENT SAYS HE WOULD LIKE TO MOVE FORWARD WITH THE RIGHT GENITOFEMORAL NERVE BLOCK TO HELP WITH THE PAIN ON HIS RIGHT SIDE. PATIENT DENIES UNEXPLAINABLE WEIGHT LOSS, FEVER, CHILLS, NEW CHANGES ON HIS URINARY OR BOWEL CONTROL. FALL RISK SCREENING: SCREENING :NO FALLS REPORTED IN THE LAST YEAR CURRENT MEDICATIONS TAKING PROPRANOLOL HCL 20 MG TABLET 1 TABLET ORALLY TWICE A DAY TAKING PRIMIDONE 50 MG TABLET 1 ORALLY PO BID TAKING DEPAKOTE ER 500 MG TABLET EXTENDED RELEASE 24 HOUR 3 TABS ORALLY DAILY TAKING VITAMIN C 500 MG TABLET CHEWABLE 1 TABLET ORALLY ONCE A DAY- OTC TAKING EXCEDRIN TENSION HEADACHE 500-65 MG TABLET 2 TABLETS NEEDED ORALLY THREE TIMES A DAY TAKING OMEPRAZOLE 40 MG CAPSULE DELAYED RELEASE 1 CAPSULE ORALLY BID TAKING SIMVASTATIN 40 MG TABLET 1 TABLET IN THE EVENING ORALLY ONCE A DAY TAKING FLONASE ALLERGY RELIEF 50 MCG/ACT SUSPENSION 1 SPRAY IN EACH NOSTRIL NASALLY ONCE A DAY TAKING MONTELUKAST SODIUM 10 MG TABLET 1 TABLET ORALLY ONCE A DAY TAKING AYR SALINE NASAL NETI RINSE 1.57 GM PACKET DIRECTED NASALLY DAILY TAKING ALBUTEROL SULFATE HFA 108 (90 BASE) MCG/ACT AEROSOL SOLUTION 2 PUFFS NEEDED INHALATION EVERY 6 HRS TAKING VITAMIN D 50 MCG (2000 UT) CAPSULE 1 CAPSULE ORALLY ONCE A DAY TAKING AYANNA ALLERGY 180 MG TABLET 1 TABLET NEEDED ORALLY ONCE A DAY TAKING GABAPENTIN 100 MG CAPSULE 1 CAPSULE ORALLY FOR PAIN TID TAKING NICORETTE 4 MG GUM 1 PIECE FOR 30 MINUTE NEEDED MOUTH/THROAT 24 TIME(S) A DAY NOT-TAKING NICOTROL 10 MG INHALER 1 CARTRIDGE NEEDED INHALATION 16 TIME(S) A DAY NOT-TAKING AMOXICILLIN 500 MG CAPSULE 1 CAPSULE ORALLY EVERY 12 HRS NOT-TAKING CYMBALTA 60 MG CAPSULE DELAYED RELEASE PARTICLES 1 CAPSULE ORALLY FOR PAIN DAILY NOT-TAKING HIBICLENS 4 % LIQUID DIRECTED EXTERNALLY DAILY AT PELVIC AREA NOT-TAKING CETIRIZINE HCL 10 MG TABLET 1 TABLET ORALLY ONCE A DAY NOT-TAKING ZOLMITRIPTAN 5 MG TABLET 1 TABLET NEEDED ONE TIME ORALLY ONCE A DAY NOT-TAKING SUCRALFATE 1 GM TABLET ORAL DIRECTED NOT-TAKING PERCOCET 10-325 MG TABLET 1 TABLET NEEDED ORALLY EVERY 6 HRS, NOTES: FOR SINUS SURGERY NOT-TAKING KEFLEX 500 MG CAPSULE 1 CAPSULE ORALLY EVERY 12 HRS MEDICATION LIST REVIEWED AND RECONCILED WITH THE PATIENT PAST MEDICAL HISTORY HIGH CHOLESTEROL BIPOLAR ADHD ALLERGIES ASTHMA SLEEP APNEA 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 COLONOSCOPY 03/2018: MILD NONSPECIFIC CHRONIC INFLAMMATION NOTED ON BIOPSY, NO ACTIVE COLITIS, DYSPLASIA OR GRANULOMA IDENTIFIED EGD 03/2018: MILD CHRONIC GASTRITIS NOTED ON BIOPSY, NO H-PYLORI RIANNA: MANAGED BY NEUROLOGY SCROTAL PAIN ED- FOLLOWING WITH UROLOGY CARTDINO 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 INFECTION ALLERGIES SEASONAL ALLERGIES: SNEEZING, COUGHING - ALLERGY SURGICAL HISTORY PERIANAL ABCESS X2 - MIHIR, DR DEMARCO SCHAFER 10/2015 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 - MIHIR, (?REACTION TO DYE) 12/2015 R SHOULDER ROTATOR CUFF, SOS 2017 ALL UPPER TEETH EXT, TAI DENTAL, 2018 VASECTOMY- [facility]/UROLOGY, WITH SEVERE SCAR TISSUE 2018 ENDOSCOPY UPPER AND LOWER, WITH BX-[facility], ADDITIONAL TESTING 03/2018 SINUS SURGERY- POLYP FAMILY HISTORY FATHER: 80 YRS, DIAGNOSED WITH OTHER MALIGNANT NEOPLASM OF UNSPECIFIED SITE MOTHER: ALIVE 54 YRS, HYPERTENSION SIBLINGS: UNKNOWN SON(S): ALIVE DAUGHTER(S): ALIVE 1 YRS PATERNAL GRAND FATHER: UNKNOWN PATERNAL GRAND MOTHER: UNKNOWN MATERNAL GRAND FATHER: 65 YRS, DIABETES, HYPERTENSION, UNSPECIFIED HEART DISEASE MATERNAL GRAND MOTHER: 68 YRS, HYPERTENSION, UNSPECIFIED HEART DISEASE - HTN, HIGH CHOLESTEROL, ALLERGIES, ASTHMA, 1YR DAUGHTER, 1MONTH OLD SON- NO KNOWN RAGHAVENDRA ISSUES, MATERNAL GRANDPARENTS- GRANDMOTHER 65, DM, HEART, CHOLESTEROL, HTN, PARKINSONS,GRANDFATHER- 68 HEART DISEASE, HTN, NADIA CHOLESTEROL, COUGH-THROAT CLOSING-ISSUES. SOCIAL HISTORY GENERAL: TOBACCO USE ARE YOU A:FORMER SMOKER NICOTINE GUM HOW LONG HAS IT BEEN SINCE YOU LAST SMOKED?6-12 MONTHS SMOKING CESSATION INFORMATION GIVEN06/06/2019 LATEX QUESTIONNAIRE LATEX ALLERGY : HAVE YOU EVER DEVELOPED ANY TYPE OF REACTION AFTER HANDLING LATEX PRODUCTS SUCH RUBBER GLOVES, CONDOMS, DIAPHRAGMS, BALLOONS, SOCKS, OR UNDERWEAR?NO LATEX ALLERGY : HAVE YOU EVER DEVELOPED ANY TYPE OF REACTION DURING OR AFTER DENTAL APPOINTMENT, VAGINAL/RECTAL EXAMINATION, SURGICAL PROCEDURE, OR ANY OTHER EXPOSURE?NO DATE ASKED : 07/11/2019 LATEX RISK : HAVE YOU EVER HAD ANY DIFFICULTY BREATHING OR HIVES AFTER EATING OR HANDLING ANY FRUITS, OR VEGETABLES; SUCH KIWI, BANANAS, STONE FRUITS, OR CHESTNUTSNO LATEX RISK : DO YOU HAVE A PREVIOUS PERSONAL HISTORY OF MORE THAN NINE SURGERIES, SPINA BIFIDA, OR REPEATED CATHERIZATIONS? YES - PLEASE INDICATE : > 9 SURGERIES LATEX RISK : ARE YOU FREQUENTLY EXPOSED TO LATEX PRODUCTS IN YOUR OCCUPATION?NO ALCOHOL SCREENING DID YOU HAVE A DRINK CONTAINING ALCOHOL IN THE PAST YEAR?YES HOW OFTEN DID YOU HAVE SIX OR MORE DRINKS ON ONE OCCASION IN THE PAST YEAR?NEVER (0 POINTS) HOW MANY DRINKS DID YOU HAVE ON A TYPICAL DAY WHEN YOU WERE DRINKING IN THE PAST YEAR?1 OR 2 (0 POINTS) HOW OFTEN DID YOU HAVE A DRINK CONTAINING ALCOHOL IN THE PAST YEAR?MONTHLY OR LESS (1 POINT) POINTS1 INTERPRETATIONNEGATIVE RECREATIONAL DRUG USE DRUG USE?NO CAFFEINE CAFFEINE USE?NO PEPSI 3 BOTTLES A DAY SEXUAL HX HAD SEX IN THE LAST 12 MONTHS (VAGINAL, ORAL, OR ANAL)?YES WITHWOMEN ONLY PREVENTION STRATEGIES DISCUSSED:OTHER USE PROTECTION?NO HAVE YOU EVER HAD AN STD?NO HIV / HEP-C SCREENING HIV TEST OFFERED TO PATIENT:YES DATE OFFERED:05/01/2017 TEST ACCEPTED:NO REASON:PATIENT DECLINED RASTAFARIAN [id number] MANDAEN LANGUAGE LANGUAGES SPOKEN:YORUBA EDUCATION LEVEL OF EDUCATION:HIGH SCHOOL LEARNING BARRIERS / SPECIAL NEEDS CHANGE FROM LAST VISIT?NO BARRIERS TO LEARNING?NO HEARING IMPAIRED?NO VISION IMPAIRED?YES COGNITIVELY IMPAIRED?NO :CORRECTIVE LENSES READINESS TO LEARN?YES LEARNING PREFERENCES?NO LEARNING CAPABILITIES PRESENT?YES EMOTIONAL BARRIERS?NO SPECIAL DEVICES?NO SLAB LIFTING ENGINEER NEEDED?NO DOMESTIC VIOLENCE DO YOU FEEL SAFE IN YOUR ENVIRONMENT?YES OCCUPATION: UNEMPLOYED. DIET: REGULAR. EXERCISE: DAILY, WALKS. MARITAL STATUS: SINGLE. OTHERS AT HOME: CHILDREN. NEW PATIENT PAIN DIARY TODAY'S VISITNOTES 08/02/2019 PATIENT DESCRIBES PAIN :ACHING, HAVE IT ALL THE TIME, TENDER, THROBBING FROM 0-10, WHAT LEVEL IS YOUR PAIN TODAY?4 PRECIPITATING FACTORS INTERCORSE ALLEVIATING FACTORS NOTHING IMPACT ON FUNCTION NO PAIN CLINIC PFS, CLERGY, PUBLIC HEALTH REFERRALS HAS THE PATIENT BEEN EDUCATED REGARDING HIS/HER PLAN OF CARE?YES HAS THE PATIENT BEEN EDUCATED REGARDING PAIN, THE RISK FOR PAIN, THE IMPORTANCE OF EFFECTIVE PAIN MANAGEMENT, AND THE PAIN ASSESSMENT PROCESS?YES ADVANCE DIRECTIVE ADVANCE DIRECTIVE DISCUSSED WITH PATIENT:YES PT DOES NOT HAVE HCP AND DECLINES INFO AND ASSISTANCE AT THIS TIME. HOSPITALIZATION/MAJOR DIAGNOSTIC PROCEDURE SURIGCAL RELATED SMC CELLULITIS RIGHT GROIN WITH ABSCESS 10/06-10/09/17 REVIEW OF SYSTEMS REVIEWED BY: PROVIDER: ANGELINA HERNANDEZ MD . CONSTITUTIONAL: ANY CHANGE IN YOUR MEDICAL CONDITION? NO . CHILLS NO . FEVER NO . INFECTION: DO YOU HAVE NEW INFECTIONS? NO . DO YOU HAVE HISTORY OF MRSA? NO . MUSCULOSKELETAL: ANY NEW PATTERNS OF PAIN OR NUMBNESS? NO . GASTROENTEROLOGY: ANY NEW CHANGE IN BOWEL CONTROL? NO . GENITOURINARY: ANY NEW CHANGE IN BLADDER CONTROL? NO . IS THERE A CHANCE YOU COULD BE ? NO . HEMATOLOGY/LYMPH: DO YOU TAKE ANY BLOOD THINNERS? (FOR EXAMPLE- COUMADIN, PLAVIX, AGGRENOX, PLATEL, PRADAXA, OR XARELTO) NO . WHEN WAS YOUR LAST DOSE? DATE: TIME: . NEUROLOGY: HAVE YOU FALLEN IN THE PAST 12 MONTHS? NO . ANY NEW EXTREMITY NUMBNESS OR WEAKNESS? NO . CARDIOLOGY: DO YOU HAVE A PACEMAKER OR DEFIBRILLATOR? NO . RESPIRATORY: HAVE YOU BEEN SICK IN THE PAST WEEK? NO . FEVER NO . FLU LIKE SYMPTOMS? NO . COUGH NO . INTEGUMENTARY: DO YOU HAVE ANY RASHES OR OPEN SORES? NO . ALLERGIC/IMMUNO: ARE YOU ALLERGIC TO IV DYE? NO . ANY NEW ALLERGIES? NO . PSYCHIATRIC: DO YOU HAVE THOUGHTS OF HURTING YOURSELF OR SOMEONE ELSE? NO . ARE YOU ABUSED, NEGLECTED, OR IN AN UNSAFE ENVIRONMENT? NO . ENDOCRINOLOGY: ARE YOU DIABETIC? NO . OTHER: DO YOU NEED ANY PRESCRIPTIONS? NO . IF YES, PLEASE LIST: ____ . ANY NEW PROBLEMS WITH YOUR MEDICATIONS? NO . WHEN DID YOU LAST EAT? ____ . WHEN DID YOU LAST DRINK? ____ . WHAT DID YOU LAST DRINK? ____ . NAME OF PERSON DRIVING YOU HOME? ____ . DO YOU HAVE ANY OTHER QUESTIONS OR CONCERNS NO . VITAL SIGNS WT 204.2 LBS, HT 65 IN, BMI 33.98 INDEX, BP 142/82 MM HG, HR 85 /MIN, RR 18 /MIN, TEMP 97.8 F, OXYGEN SAT % 98%, SAFE IN ENV? (Y/N) Y, NA INITIALS AW 1037, REVIEWED BY: EM. EXAMINATION GENERAL EXAMINATION: PATIENT IS ALERT O X 3 AND COOPERATIVE. LUNGS CLEAR, TO AUSCULTATION. HEART: NO MURMURS OR GALLOPS; FACIAL CRANIAL NERVES ARE GROSSLY NORMAL. GOOD SYMMETRY OF FACIAL MUSCLE MOVEMENT. NORMAL VISUAL FLOYD. TENDERNESS OVER THE RIGHT INGUINAL AREA TOWARDS TESTICLE. 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 TREATMENT GENITOFEMORAL NEURALGIA OF RIGHT SIDE CLINICAL NOTES: WE DISCUSSED SEVERAL ISSUES WITH MR. RAO'S PAIN MANAGEMENT CASE. THE PATIENT STATES HE IS RECEIVING GOOD PAIN RELIEF FROM HIS LEFT GENITOFEMORAL NERVE BLOCK DONE IN JUNE 06, 2019, AND HE WOULD LIKE TO HAVE THE SAME INJECTION DONE FOR HIS RIGHT SIDE PAIN. THEREFORE, I WOULD LIKE TO MOVE FORWARD WITH A RIGHT GENITOFEMORAL NERVE BLOCK. THE PATIENT WOULD LIKE TO MOVE FORWARD WITH IV SEDATION DUE TO DISCOMFORT, PAIN, AND ANXIETY ASSOCIATED WITH THE PROCEDURE. I AM LOOKING FOR LONG LASTING PAIN RELIEF FOR THE PATIENT WITH THIS INJECTION. THE PATIENT WILL FOLLOW UP IN SEVERAL WEEKS AFTER HIS INJECTION TO SEE HOW IT IS WORKING FOR HIS PAIN. INSTRUCTIONS WERE GIVEN, QUESTIONS WERE ANSWERED, PATIENT REPORTS UNDERSTANDING AND AGREES WITH THE PLAN. I, NABILA BEAULIEU, DOCUMENTED THE ABOVE INFORMATION ACTING A SCRIBE FOR DR. HERNANDEZ. I HAVE REVIEWED THE ABOVE DOCUMENT, WRITTEN BY NABILA BEAULIEU SCRIBRobbie AND I VERIFY THAT IT IS ACCURATE. . PROCEDURE CODES G8427 CURRENT MEDS W/DOSAGES DOCUMENTED G8730 PAIN ASSESS POS TOOL F/U PLAN DOC FA211 ESTABILISHED PATIENT [facility] CHARGE DISPOSITION & COMMUNICATION FOLLOW UP 3 WEEKS (REASON: RIGHT GENITOFEMORAL NERVE BLOCK WITH IV SEDATE) ELECTRONICALLY SIGNED BY ANGELINA HERNANDEZ MD, MD ON 08/05/2019 AT 09:40 AM EDT DISCLAIMER : THIS IS A VISIT SUMMARY EXTRACTED FROM THE ECLINICALFLIP4NEW CHART. IT IS NOT A COPY OF THE import2INICALFLIP4NEW PROGRESS NOTE. MARY
== END ==
LOC: M PAIN 10:45
PROVIDERS: ATTEND Anesthesiology
DX: G58.8 Other specified mononeuropathies (principal); Z79.891 Long term (current) use of opiate analgesic; Z79.899 Other long term (current) drug therapy; Z87.891 Personal history of nicotine dependence

== ENCOUNTER → 2019-08-03 | Outpatient (CLI) | payer MEDICARE, MEDICAID | LOC: M LABSMTC 08:03 | PROVIDERS: ATTEND Family Medicine | DX: Z11.59 Encounter for screening for other viral diseases (principal) ==

== ENCOUNTER → 2019-08-06 | Outpatient (CLI) | payer MEDICARE, MEDICAID ==
[~2019-08-06] MED LIST changes: +BUPIVACAINE HCL 0.25% 30ML VIAL As Ordered ONE; +ISOVUE-M 300 61% 15ML VIAL As Ordered ONE; +LIDOCAINE 1% SDV 30ML VIAL As Ordered ONE; +MIDAZOLAM INJ 2MG/2ML VIAL (J2250 PER 1MG) As Ordered ONE; +dexameTHASONE 10MG/1ML VIAL PRES.FREE (J1100 PER 1MG) As Ordered ONE; +fentaNYL 100 MCG/2 ML INJECTION (J3010) As Ordered ONE
--- NOTE | 2019-08-10 02:19 | ECWPNPC ---
PATIENT NAME: OBED RAO : 1980 GENDER: MALE VISIT DATE: 08/06/2019 DISCHARGE DATE: 08/06/19 1405 VISIT LOCKED DATE TIME: PHYSICIAN: ANGELINA HERNANDEZ MD RESOURCE: ANGELINA HERNANDEZ MD REASON FOR APPOINTMENT 1. RIGHT GENITOFEMORAL NERVE BLOCK W IV SEDATION PAT DONE HISTORY OF PRESENT ILLNESS HISTORY OF PRESENT ILLNESS: PAIN THE PATIENT DESCRIBES THE PAIN... FALL RISK SCREENING: SCREENING :NO FALLS REPORTED IN THE LAST YEAR CURRENT MEDICATIONS TAKING PROPRANOLOL HCL 20 MG TABLET 1 TABLET ORALLY TWICE A DAY, NOTES: 08/04 TAKING PRIMIDONE 50 MG TABLET 1 ORALLY PO BID, NOTES: 08/04 TAKING DEPAKOTE ER 500 MG TABLET EXTENDED RELEASE 24 HOUR 3 TABS ORALLY DAILY, NOTES: 08/05 9AM TAKING VITAMIN C 500 MG TABLET CHEWABLE 1 TABLET ORALLY ONCE A DAY- OTC, NOTES: 08/04 TAKING EXCEDRIN TENSION HEADACHE 500-65 MG TABLET 2 TABLETS NEEDED ORALLY THREE TIMES A DAY, NOTES: 2 WEEKS TAKING OMEPRAZOLE 40 MG CAPSULE DELAYED RELEASE 1 CAPSULE ORALLY BID, NOTES: 08/04 TAKING SIMVASTATIN 40 MG TABLET 1 TABLET IN THE EVENING ORALLY ONCE A DAY, NOTES: 08/04 TAKING FLONASE ALLERGY RELIEF 50 MCG/ACT SUSPENSION 1 SPRAY IN EACH NOSTRIL NASALLY ONCE A DAY, NOTES: 08/04 TAKING MONTELUKAST SODIUM 10 MG TABLET 1 TABLET ORALLY ONCE A DAY, NOTES: 08/04 TAKING AYR SALINE NASAL NETI RINSE 1.57 GM PACKET DIRECTED NASALLY DAILY, NOTES: 08/04 TAKING ALBUTEROL SULFATE HFA 108 (90 BASE) MCG/ACT AEROSOL SOLUTION 2 PUFFS NEEDED INHALATION EVERY 6 HRS, NOTES: 3 WEEKS TAKING VITAMIN D 50 MCG (2000 UT) CAPSULE 1 CAPSULE ORALLY ONCE A DAY, NOTES: 08/04 TAKING AYANNA ALLERGY 180 MG TABLET 1 TABLET NEEDED ORALLY ONCE A DAY, NOTES: 08/04 TAKING GABAPENTIN 100 MG CAPSULE 1 CAPSULE ORALLY FOR PAIN TID, NOTES: 08/04 TAKING NICORETTE 4 MG GUM 1 PIECE FOR 30 MINUTE NEEDED MOUTH/THROAT 24 TIME(S) A DAY, NOTES: 08/05 9AM NOT-TAKING NICOTROL 10 MG INHALER 1 CARTRIDGE NEEDED INHALATION 16 TIME(S) A DAY NOT-TAKING AMOXICILLIN 500 MG CAPSULE 1 CAPSULE ORALLY EVERY 12 HRS NOT-TAKING CYMBALTA 60 MG CAPSULE DELAYED RELEASE PARTICLES 1 CAPSULE ORALLY FOR PAIN DAILY NOT-TAKING HIBICLENS 4 % LIQUID DIRECTED EXTERNALLY DAILY AT PELVIC AREA NOT-TAKING CETIRIZINE HCL 10 MG TABLET 1 TABLET ORALLY ONCE A DAY NOT-TAKING ZOLMITRIPTAN 5 MG TABLET 1 TABLET NEEDED ONE TIME ORALLY ONCE A DAY NOT-TAKING SUCRALFATE 1 GM TABLET ORAL DIRECTED NOT-TAKING PERCOCET 10-325 MG TABLET 1 TABLET NEEDED ORALLY EVERY 6 HRS, NOTES: FOR SINUS SURGERY NOT-TAKING KEFLEX 500 MG CAPSULE 1 CAPSULE ORALLY EVERY 12 HRS MEDICATION LIST REVIEWED AND RECONCILED WITH THE PATIENT PAST MEDICAL HISTORY HIGH CHOLESTEROL BIPOLAR ADHD ALLERGIES ASTHMA SLEEP APNEA 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 COLONOSCOPY 03/2018: MILD NONSPECIFIC CHRONIC INFLAMMATION NOTED ON BIOPSY, NO ACTIVE COLITIS, DYSPLASIA OR GRANULOMA IDENTIFIED EGD 03/2018: MILD CHRONIC GASTRITIS NOTED ON BIOPSY, NO H-PYLORI RIANNA: MANAGED BY NEUROLOGY SCROTAL PAIN ED- FOLLOWING WITH UROLOGY CARTHAGE 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 INFECTION ALLERGIES SEASONAL ALLERGIES: SNEEZING, COUGHING - ALLERGY SURGICAL HISTORY PERIANAL ABCESS X2 - MIHIR, DR DEMARCO SCHAFER 10/2015 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 - MIHIR, (?REACTION TO DYE) 12/2015 R SHOULDER ROTATOR CUFF, SOS 2017 ALL UPPER TEETH EXT, TAI DENTAL, 2018 VASECTOMY- [facility]/UROLOGY, WITH SEVERE SCAR TISSUE 2018 ENDOSCOPY UPPER AND LOWER, WITH BX-[facility], ADDITIONAL TESTING 03/2018 SINUS SURGERY- POLYP FAMILY HISTORY FATHER: 80 YRS, DIAGNOSED WITH OTHER MALIGNANT NEOPLASM OF UNSPECIFIED SITE MOTHER: ALIVE 54 YRS, HYPERTENSION SIBLINGS: UNKNOWN SON(S): ALIVE DAUGHTER(S): ALIVE 1 YRS PATERNAL GRAND FATHER: UNKNOWN PATERNAL GRAND MOTHER: UNKNOWN MATERNAL GRAND FATHER: 65 YRS, DIABETES, HYPERTENSION, UNSPECIFIED HEART DISEASE MATERNAL GRAND MOTHER: 68 YRS, HYPERTENSION, UNSPECIFIED HEART DISEASE - HTN, HIGH CHOLESTEROL, ALLERGIES, ASTHMA, 1YR DAUGHTER, 1MONTH OLD SON- NO KNOWN RAGHAVENDRA ISSUES, MATERNAL GRANDPARENTS- GRANDMOTHER 65, DM, HEART, CHOLESTEROL, HTN, PARKINSONS,GRANDFATHER- 68 HEART DISEASE, HTN, NADIA CHOLESTEROL, COUGH-THROAT CLOSING-ISSUES. SOCIAL HISTORY GENERAL: TOBACCO USE ARE YOU A:FORMER SMOKER NICOTINE GUM HOW LONG HAS IT BEEN SINCE YOU LAST SMOKED?6-12 MONTHS SMOKING CESSATION INFORMATION GIVEN06/06/2019 LATEX QUESTIONNAIRE LATEX ALLERGY : HAVE YOU EVER DEVELOPED ANY TYPE OF REACTION AFTER HANDLING LATEX PRODUCTS SUCH RUBBER GLOVES, CONDOMS, DIAPHRAGMS, BALLOONS, SOCKS, OR UNDERWEAR?NO LATEX ALLERGY : HAVE YOU EVER DEVELOPED ANY TYPE OF REACTION DURING OR AFTER DENTAL APPOINTMENT, VAGINAL/RECTAL EXAMINATION, SURGICAL PROCEDURE, OR ANY OTHER EXPOSURE?NO LATEX RISK : HAVE YOU EVER HAD ANY DIFFICULTY BREATHING OR HIVES AFTER EATING OR HANDLING ANY FRUITS, OR VEGETABLES; SUCH KIWI, BANANAS, STONE FRUITS, OR CHESTNUTSNO LATEX RISK : DO YOU HAVE A PREVIOUS PERSONAL HISTORY OF MORE THAN NINE SURGERIES, SPINA BIFIDA, OR REPEATED CATHERIZATIONS? YES - PLEASE INDICATE : > 9 SURGERIES LATEX RISK : ARE YOU FREQUENTLY EXPOSED TO LATEX PRODUCTS IN YOUR OCCUPATION?NO DATE ASKED : 08/06/2019 ALCOHOL SCREENING DID YOU HAVE A DRINK CONTAINING ALCOHOL IN THE PAST YEAR?YES HOW OFTEN DID YOU HAVE SIX OR MORE DRINKS ON ONE OCCASION IN THE PAST YEAR?NEVER (0 POINTS) HOW MANY DRINKS DID YOU HAVE ON A TYPICAL DAY WHEN YOU WERE DRINKING IN THE PAST YEAR?1 OR 2 (0 POINTS) HOW OFTEN DID YOU HAVE A DRINK CONTAINING ALCOHOL IN THE PAST YEAR?MONTHLY OR LESS (1 POINT) POINTS1 INTERPRETATIONNEGATIVE RECREATIONAL DRUG USE DRUG USE?NO CAFFEINE CAFFEINE USE?NO PEPSI 3 BOTTLES A DAY SEXUAL HX HAD SEX IN THE LAST 12 MONTHS (VAGINAL, ORAL, OR ANAL)?YES WITHWOMEN ONLY PREVENTION STRATEGIES DISCUSSED:OTHER USE PROTECTION?NO HAVE YOU EVER HAD AN STD?NO HIV / HEP-C SCREENING HIV TEST OFFERED TO PATIENT:YES DATE OFFERED:05/01/2017 TEST ACCEPTED:NO REASON:PATIENT DECLINED CHRISTIANITY [id number] ORIENTAL ORTHODOX LANGUAGE LANGUAGES SPOKEN:INDONESIAN EDUCATION LEVEL OF EDUCATION:HIGH SCHOOL LEARNING BARRIERS / SPECIAL NEEDS CHANGE FROM LAST VISIT?NO BARRIERS TO LEARNING?NO HEARING IMPAIRED?NO VISION IMPAIRED?YES COGNITIVELY IMPAIRED?NO :CORRECTIVE LENSES READINESS TO LEARN?YES LEARNING PREFERENCES?NO LEARNING CAPABILITIES PRESENT?YES EMOTIONAL BARRIERS?NO SPECIAL DEVICES?NO 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 DIET: REGULAR. EXERCISE: DAILY, WALKS. MARITAL STATUS: SINGLE. OTHERS AT HOME: CHILDREN. NEW PATIENT PAIN DIARY TODAY'S VISITNOTES 08/06/19 PATIENT DESCRIBES PAIN :ACHING, HAVE IT ALL THE TIME, TENDER, THROBBING FROM 0-10, WHAT LEVEL IS YOUR PAIN TODAY?5 PRECIPITATING FACTORS INTERCORSE ALLEVIATING FACTORS NOTHING IMPACT ON FUNCTION NO PAIN CLINIC PFS, CLERGY, PUBLIC HEALTH REFERRALS WAS THE PROVIDER NOTIFIED OF ANY PERTINENT INFO?YES HAS THE PATIENT BEEN EDUCATED REGARDING HIS/HER PLAN OF CARE?YES HAS THE PATIENT BEEN EDUCATED REGARDING PAIN, THE RISK FOR PAIN, THE IMPORTANCE OF EFFECTIVE PAIN MANAGEMENT, AND THE PAIN ASSESSMENT PROCESS?YES ADVANCE DIRECTIVE ADVANCE DIRECTIVE DISCUSSED WITH PATIENT:YES PT DOES NOT HAVE HCP AND DECLINES INFO AND ASSISTANCE AT THIS TIME. HOSPITALIZATION/MAJOR DIAGNOSTIC PROCEDURE SURIGCAL RELATED SMC CELLULITIS RIGHT GROIN WITH ABSCESS 10/06-10/09/17 REVIEW OF SYSTEMS REVIEWED BY: PROVIDER: ANGELINA HERNANDEZ MD . CONSTITUTIONAL: ANY CHANGE IN YOUR MEDICAL CONDITION? NO . CHILLS NO . FEVER NO . INFECTION: DO YOU HAVE NEW INFECTIONS? NO . DO YOU HAVE HISTORY OF MRSA? NO . MUSCULOSKELETAL: ANY NEW PATTERNS OF PAIN OR NUMBNESS? NO . GASTROENTEROLOGY: ANY NEW CHANGE IN BOWEL CONTROL? NO . GENITOURINARY: ANY NEW CHANGE IN BLADDER CONTROL? NO . IS THERE A CHANCE YOU COULD BE ? NO . HEMATOLOGY/LYMPH: DO YOU TAKE ANY BLOOD THINNERS? (FOR EXAMPLE- COUMADIN, PLAVIX, AGGRENOX, PLATEL, PRADAXA, OR XARELTO) NO . WHEN WAS YOUR LAST DOSE? DATE: TIME: . NEUROLOGY: HAVE YOU FALLEN IN THE PAST 12 MONTHS? NO . ANY NEW EXTREMITY NUMBNESS OR WEAKNESS? NO . CARDIOLOGY: DO YOU HAVE A PACEMAKER OR DEFIBRILLATOR? NO . RESPIRATORY: HAVE YOU BEEN SICK IN THE PAST WEEK? NO . FEVER NO . FLU LIKE SYMPTOMS? NO . COUGH NO . INTEGUMENTARY: DO YOU HAVE ANY RASHES OR OPEN SORES? NO . ALLERGIC/IMMUNO: ARE YOU ALLERGIC TO IV DYE? NO . ANY NEW ALLERGIES? NO . PSYCHIATRIC: DO YOU HAVE THOUGHTS OF HURTING YOURSELF OR SOMEONE ELSE? NO . ARE YOU ABUSED, NEGLECTED, OR IN AN UNSAFE ENVIRONMENT? NO . ENDOCRINOLOGY: ARE YOU DIABETIC? NO . OTHER: DO YOU NEED ANY PRESCRIPTIONS? NO . IF YES, PLEASE LIST: ____ . ANY NEW PROBLEMS WITH YOUR MEDICATIONS? NO . WHEN DID YOU LAST EAT? 08/04 8PM . WHEN DID YOU LAST DRINK? 08/05 8AM . WHAT DID YOU LAST DRINK? WATER . NAME OF PERSON DRIVING YOU HOME? AUNT OR MOM . DO YOU HAVE ANY OTHER QUESTIONS OR CONCERNS NO . VITAL SIGNS WT 204.2 LBS, HT 65 IN, BMI 33.98 INDEX, BP 130/92 MM HG, HR 84 /MIN, RR 18 /MIN, TEMP 98.3 F, OXYGEN SAT % 98%, SAFE IN ENV? (Y/N) Y, NA INITIALS AW 1151, REVIEWED BY: DS. 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 PROCEDURES PRE-PROCEDURE DIAGNOSIS: RIGHT GENITOFEMORAL NEURALGIAPOST-PROCEDURE DIAGNOSIS: RIGHT GENTIOFEMORAL NEURALGIAPROCEDURE: RIGHT GENITOFEMORAL NERVE BLOCKSURGEON: SHARLA GIBBONSTHESIA: LOCAL WITH IV SEDATIONCOMPLICATIONS: NONEPRE-PROCEDURE NOTE: MR. RAO IS A 39-YEAR-OLD MALE PATIENT WITH A HISTORY OF RIGHT TESTICULAR PAIN AND INGUINAL PAIN. WE HAVE PERFORMED GENITOFEMORAL NERVE BLOCKS IN THE PAST, WHICH HAS PROVIDED ADEQUATE PAIN RELIEF FOR THE PATIENT. THE PATIENT WANTS TO HAVE THIS PROCEDURE DONE AGAIN. I WENT THROUGH THE RISKS, ALTERNATIVES, AND BENEFITS ASSOCIATED WITH THIS PROCEDURE AND THE PATIENT EXPRESSED THAT HE WOULD LIKE TO PROCEED. I DISCUSSED WITH THE PATIENT THAT THE USE OF STEROIDS MAY CONTRIBUTE TO IMMUNOSUPPRESSION OF HIS BODY AGAINST INFECTIONS SUCH THE NG VIRUS, COVID-19. HE IS AWARE OF THE POTENTIAL COMPLICATIONS ASSOCIATED WITH AN INFECTION OF THIS VIRUS INCLUDING . THE PATIENT DENIES UNEXPLAINABLE WEIGHT LOSS, FEVER, CHILLS, OR CHANGES IN URINARY OR BOWEL CONTROL. THE PATIENT IS COVID-19 NEGATIVE. THE PATIENT WOULD LIKE TO MOVE FORWARD WITH IV SEDATION DUE TO DISCOMFORT, PAIN AND ANXIETY ASSOCIATED WITH THE PROCEDURE. PROCEDURE NOTE: AFTER CONSENT WAS SIGNED, THE PATIENT WAS BROUGHT TO THE PROCEDURE ROOM AND PLACED IN THE SUPINE POSITION. THE RIGHT GENITOFEMORAL AREA WAS CLEANED WITH CHLORAPREP SOLUTION AND DRAPED ASEPTICALLY. THE PROCEDURE WAS DONE UNDER STERILE STANDARD TECHNIQUES. PATIENT RECEIVED VERSED 2 MG AND FENTANYL 100 MCG IV IN DIVIDED DOSES I CHECKED THE LOCATION OF THE FEMORAL ARTERY. THEN, WITH THE ASSISTANCE OF A NERVE STIMULATOR, I WENT APPROXIMATELY 1 INCH LATERAL TO THE SYMPHYSIS PUBIS, FIRST AT 3.0 VOLTS AND THEN AT 1.0 VOLTS. THE PATIENT WAS HAVING STIMULATION TOWARDS THE RIGHT TESTICLE WHERE HIS USUAL PAIN IS. WE INJECTED A TOTAL OF 20 ML OF BUPIVACAINE 0.125% AND DEXAMETHASONE 10 MG. THERE WAS NO EVIDENCE OF BLOOD, PARESTHESIA OR VISCERAL PUNCTURE. THERE WAS NO EVIDENCE OF ANY COMPLICATIONS. THE PATIENT TOLERATED THE PROCEDURE WITHOUT COMPLICATIONS AND WAS SENT TO THE RECOVERY ROOM WHERE HE WAS MOVING HIS EXTREMITIES AND DOING WELL. TOTAL FACE-TO FACE TIME WAS 22 MINUTES. POST-PROCEDURE NOTE: I WILL SEE THE PATIENT IN A FOLLOW UP IN THE NEXT FEW WEEKS. WE ARE LOOKING FOR LONG LASTING PAIN RELIEF WITH THIS INTERVENTION. THERE WERE NO COMPLICATIONS. INSTRUCTIONS WERE GIVEN, QUESTIONS WERE ANSWERED, AND THE PATIENT REPORTS UNDERSTANDING AND AGREES. THE PATIENT IS AWARE TO STAY HOME FOR THE NEXT WEEK, IF POSSIBLE, DUE TO COVID-19. I, JANET LOPEZ, DOCUMENTED THE ABOVE INFORMATION ACTING A SCRIBE FOR DR. HERNANDEZ. I HAVE REVIEWED THE ABOVE DOCUMENT, WRITTEN BY JANET LOPEZ, AUTO DISMANTLER, AND I VERIFY THAT IT IS ACCURATE. 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 IT IS NOT A COPY OF THE [employer] PROGRESS NOTE. MARY
== END ==
LOC: M PAIN 12:15
PROVIDERS: ATTEND Anesthesiology
DX: M79.2 Neuralgia and neuritis, unspecified (principal); Z86.59 Personal history of other mental and behavioral disorders; J45.909 Unspecified asthma, uncomplicated; G47.33 Obstructive sleep apnea (adult) (pediatric); F17.290 Nicotine dependence, other tobacco product, uncomplicated; Z79.899 Other long term (current) drug therapy
CPT/HCPCS: 64425; 99152; J1100; J2250; J3010; Q9967

== ENCOUNTER → 2019-08-21 | Outpatient (CLI) | payer MEDICARE, MEDICAID ==
[~2019-08-21] MED LIST changes: -BUPIVACAINE HCL 0.25% 30ML VIAL As Ordered ONE; -ISOVUE-M 300 61% 15ML VIAL As Ordered ONE; -LIDOCAINE 1% SDV 30ML VIAL As Ordered ONE; -MIDAZOLAM INJ 2MG/2ML VIAL (J2250 PER 1MG) As Ordered ONE; -dexameTHASONE 10MG/1ML VIAL PRES.FREE (J1100 PER 1MG) As Ordered ONE; -fentaNYL 100 MCG/2 ML INJECTION (J3010) As Ordered ONE
--- NOTE | 2019-08-23 02:51 | ECWPNPC ---
PATIENT NAME: OBED RAO : 1980 GENDER: MALE VISIT DATE: 08/21/2019 DISCHARGE DATE: 08/21/19 1453 VISIT LOCKED DATE TIME: PHYSICIAN: BROCK QUIGLEY RESOURCE: BROCK QUIGLEY REASON FOR APPOINTMENT 1. POST [phone] PAT DONE HISTORY OF PRESENT ILLNESS HISTORY OF PRESENT ILLNESS: PATIENT IS AGREEABLE TO VIRTUAL VISIT VIA ZOOM. HAD RIGHT GENITOFEMORAL NERVE BLOCK ON 08/06/2019. REPORTING SIGNIFICANT REDUCTION IN RIGHT GROIN PAIN FOR APPROXIMATELY 3 WEEKS AND THEN PAIN HAS GRADUALLY INCREASED. CONTINUES TO BENEFIT SOME FROM THE PROCEDURE. RATING PAIN VAS 3/10. PAIN IS AGGRAVATED BY SEXUAL INTERCOURSE OR RIDING ON LAWNMOWER. FINDS GABAPENTIN 100 MG HELPFUL AT REDUCING PAIN. USING THIS ON A WHEN NECESSARY BASIS. DISCUSSED MEDICATION AND TREATMENT PLAN. PAIN THE PATIENT DESCRIBES THE PAINAFTER THE PROCEDURE PRE PROCEDURE PAIN-5/10, POST PROCEDURE PAIN 3/10(RIGHT SIDE), 1/10(LEFT SIDE) SEVERITY - PAIN SCORE OF1/10, 3/10 LOCATIONS GROIN AREA QUALITYACHING , BURNING, THROBBING DURATIONCONTINUOUS, CONSTANT, ALL DAY PAIN IS INCREASED BY:ACTIVITIES SEXUAL ACTIVITIES PAIN IS DECREASED BY:USE OF PAIN MEDICATIONS GABAPENTIN FALL RISK SCREENING: SCREENING :NO FALLS REPORTED IN THE LAST YEAR CURRENT MEDICATIONS TAKING PROPRANOLOL HCL 20 MG TABLET 1 TABLET ORALLY TWICE A DAY, NOTES: 08/04 TAKING PRIMIDONE 50 MG TABLET 1 ORALLY PO BID, NOTES: 08/04 TAKING DEPAKOTE ER 500 MG TABLET EXTENDED RELEASE 24 HOUR 3 TABS ORALLY DAILY, NOTES: 08/05 9AM TAKING VITAMIN C 500 MG TABLET CHEWABLE 1 TABLET ORALLY ONCE A DAY- OTC, NOTES: 08/04 TAKING EXCEDRIN TENSION HEADACHE 500-65 MG TABLET 2 TABLETS NEEDED ORALLY THREE TIMES A DAY, NOTES: 2 WEEKS TAKING OMEPRAZOLE 40 MG CAPSULE DELAYED RELEASE 1 CAPSULE ORALLY BID, NOTES: 08/04 TAKING SIMVASTATIN 40 MG TABLET 1 TABLET IN THE EVENING ORALLY ONCE A DAY, NOTES: 08/04 TAKING FLONASE ALLERGY RELIEF 50 MCG/ACT SUSPENSION 1 SPRAY IN EACH NOSTRIL NASALLY ONCE A DAY, NOTES: 08/04 TAKING MONTELUKAST SODIUM 10 MG TABLET 1 TABLET ORALLY ONCE A DAY, NOTES: 5/11 10P TAKING AYR SALINE NASAL NETI RINSE 1.57 GM PACKET DIRECTED NASALLY DAILY, NOTES: 08/04 10P TAKING ALBUTEROL SULFATE HFA 108 (90 BASE) MCG/ACT AEROSOL SOLUTION 2 PUFFS NEEDED INHALATION EVERY 6 HRS, NOTES: 3 WEEKS TAKING VITAMIN D 50 MCG (2000 UT) CAPSULE 1 CAPSULE ORALLY ONCE A DAY, NOTES: 08/04 10P TAKING AYANNA ALLERGY 180 MG TABLET 1 TABLET NEEDED ORALLY ONCE A DAY, NOTES: 08/04 TAKING GABAPENTIN 100 MG CAPSULE 1 CAPSULE ORALLY FOR PAIN TID, NOTES: 08/04 TAKING NICORETTE 4 MG GUM 1 PIECE FOR 30 MINUTE NEEDED MOUTH/THROAT 24 TIME(S) A DAY, NOTES: 08/05 9AM NOT-TAKING NICOTROL 10 MG INHALER 1 CARTRIDGE NEEDED INHALATION 16 TIME(S) A DAY NOT-TAKING AMOXICILLIN 500 MG CAPSULE 1 CAPSULE ORALLY EVERY 12 HRS NOT-TAKING CYMBALTA 60 MG CAPSULE DELAYED RELEASE PARTICLES 1 CAPSULE ORALLY FOR PAIN DAILY NOT-TAKING HIBICLENS 4 % LIQUID DIRECTED EXTERNALLY DAILY AT PELVIC AREA NOT-TAKING CETIRIZINE HCL 10 MG TABLET 1 TABLET ORALLY ONCE A DAY NOT-TAKING ZOLMITRIPTAN 5 MG TABLET 1 TABLET NEEDED ONE TIME ORALLY ONCE A DAY NOT-TAKING SUCRALFATE 1 GM TABLET ORAL DIRECTED NOT-TAKING PERCOCET 10-325 MG TABLET 1 TABLET NEEDED ORALLY EVERY 6 HRS, NOTES: FOR SINUS SURGERY NOT-TAKING KEFLEX 500 MG CAPSULE 1 CAPSULE ORALLY EVERY 12 HRS MEDICATION LIST REVIEWED AND RECONCILED WITH THE PATIENT PAST MEDICAL HISTORY HIGH CHOLESTEROL BIPOLAR ADHD ALLERGIES ASTHMA SLEEP APNEA 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 COLONOSCOPY 03/2018: MILD NONSPECIFIC CHRONIC INFLAMMATION NOTED ON BIOPSY, NO ACTIVE COLITIS, DYSPLASIA OR GRANULOMA IDENTIFIED EGD 03/2018: MILD CHRONIC GASTRITIS NOTED ON BIOPSY, NO H-PYLORI RIANNA: MANAGED BY NEUROLOGY SCROTAL PAIN ED- FOLLOWING WITH UROLOGY CARTHAGE 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 INFECTION ALLERGIES SEASONAL ALLERGIES: SNEEZING, COUGHING - ALLERGY SURGICAL HISTORY PERIANAL ABCESS X2 - MIHIR, DR DEMARCO SCHAFER 10/2015 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 - MIHIR, (?REACTION TO DYE) 12/2015 R SHOULDER ROTATOR CUFF, SOS 2017 ALL UPPER TEETH EXT, TAI DENTAL, 2018 VASECTOMY- [facility]/UROLOGY, WITH SEVERE SCAR TISSUE 2018 ENDOSCOPY UPPER AND LOWER, WITH BX-[facility], ADDITIONAL TESTING 03/2018 SINUS SURGERY- POLYP FAMILY HISTORY FATHER: 80 YRS, DIAGNOSED WITH OTHER MALIGNANT NEOPLASM OF UNSPECIFIED SITE MOTHER: ALIVE 54 YRS, HYPERTENSION SIBLINGS: UNKNOWN SON(S): ALIVE DAUGHTER(S): ALIVE 1 YRS PATERNAL GRAND FATHER: UNKNOWN PATERNAL GRAND MOTHER: UNKNOWN MATERNAL GRAND FATHER: 65 YRS, DIABETES, HYPERTENSION, UNSPECIFIED HEART DISEASE MATERNAL GRAND MOTHER: 68 YRS, HYPERTENSION, UNSPECIFIED HEART DISEASE - HTN, HIGH CHOLESTEROL, ALLERGIES, ASTHMA, 1YR DAUGHTER, 1MONTH OLD SON- NO KNOWN RAGHAVENDRA ISSUES, MATERNAL GRANDPARENTS- GRANDMOTHER 65, DM, HEART, CHOLESTEROL, HTN, PARKINSONS,GRANDFATHER- 68 HEART DISEASE, HTN, NADIA CHOLESTEROL, COUGH-THROAT CLOSING-ISSUES. SOCIAL HISTORY GENERAL: TOBACCO USE ARE YOU A:FORMER SMOKER NICOTINE GUM HOW LONG HAS IT BEEN SINCE YOU LAST SMOKED?6-12 MONTHS SMOKING CESSATION INFORMATION GIVEN06/06/2019 LATEX QUESTIONNAIRE LATEX ALLERGY : HAVE YOU EVER DEVELOPED ANY TYPE OF REACTION AFTER HANDLING LATEX PRODUCTS SUCH RUBBER GLOVES, CONDOMS, DIAPHRAGMS, BALLOONS, SOCKS, OR UNDERWEAR?NO LATEX ALLERGY : HAVE YOU EVER DEVELOPED ANY TYPE OF REACTION DURING OR AFTER DENTAL APPOINTMENT, VAGINAL/RECTAL EXAMINATION, SURGICAL PROCEDURE, OR ANY OTHER EXPOSURE?NO DATE ASKED : 08/06/2019 LATEX RISK : HAVE YOU EVER HAD ANY DIFFICULTY BREATHING OR HIVES AFTER EATING OR HANDLING ANY FRUITS, OR VEGETABLES; SUCH KIWI, BANANAS, STONE FRUITS, OR CHESTNUTSNO LATEX RISK : DO YOU HAVE A PREVIOUS PERSONAL HISTORY OF MORE THAN NINE SURGERIES, SPINA BIFIDA, OR REPEATED CATHERIZATIONS? YES - PLEASE INDICATE : > 9 SURGERIES LATEX RISK : ARE YOU FREQUENTLY EXPOSED TO LATEX PRODUCTS IN YOUR OCCUPATION?NO ALCOHOL SCREENING DID YOU HAVE A DRINK CONTAINING ALCOHOL IN THE PAST YEAR?YES HOW OFTEN DID YOU HAVE SIX OR MORE DRINKS ON ONE OCCASION IN THE PAST YEAR?NEVER (0 POINTS) HOW MANY DRINKS DID YOU HAVE ON A TYPICAL DAY WHEN YOU WERE DRINKING IN THE PAST YEAR?1 OR 2 (0 POINTS) HOW OFTEN DID YOU HAVE A DRINK CONTAINING ALCOHOL IN THE PAST YEAR?MONTHLY OR LESS (1 POINT) POINTS1 INTERPRETATIONNEGATIVE RECREATIONAL DRUG USE DRUG USE?NO CAFFEINE CAFFEINE USE?NO PEPSI 3 BOTTLES A DAY SEXUAL HX HAD SEX IN THE LAST 12 MONTHS (VAGINAL, ORAL, OR ANAL)?YES WITHWOMEN ONLY PREVENTION STRATEGIES DISCUSSED:OTHER USE PROTECTION?NO HAVE YOU EVER HAD AN STD?NO HIV / HEP-C SCREENING HIV TEST OFFERED TO PATIENT:YES DATE OFFERED:05/01/2017 TEST ACCEPTED:NO REASON:PATIENT DECLINED ANA[employer]IST [id number] SCIENTOLOGIST LANGUAGE LANGUAGES SPOKEN:BELARUSIAN EDUCATION LEVEL OF EDUCATION:HIGH SCHOOL LEARNING BARRIERS / SPECIAL NEEDS CHANGE FROM LAST VISIT?NO BARRIERS TO LEARNING?NO HEARING IMPAIRED?NO VISION IMPAIRED?YES COGNITIVELY IMPAIRED?NO :CORRECTIVE LENSES READINESS TO LEARN?YES LEARNING PREFERENCES?NO LEARNING CAPABILITIES PRESENT?YES EMOTIONAL BARRIERS?NO SPECIAL DEVICES?NO MINE SHIFTER NEEDED?NO DOMESTIC VIOLENCE DO YOU FEEL SAFE IN YOUR ENVIRONMENT?YES OCCUPATION: UNEMPLOYED. DIET: REGULAR. EXERCISE: DAILY, WALKS. MARITAL STATUS: SINGLE. OTHERS AT HOME: CHILDREN. NEW PATIENT PAIN DIARY TODAY'S VISITNOTES 08/06/19 PATIENT DESCRIBES PAIN :ACHING, HAVE IT ALL THE TIME, TENDER, THROBBING FROM 0-10, WHAT LEVEL IS YOUR PAIN TODAY?5 PRECIPITATING FACTORS INTERCORSE ALLEVIATING FACTORS NOTHING IMPACT ON FUNCTION NO PAIN CLINIC PFS, CLERGY, PUBLIC HEALTH REFERRALS WAS THE PROVIDER NOTIFIED OF ANY PERTINENT INFO?YES HAS THE PATIENT BEEN EDUCATED REGARDING HIS/HER PLAN OF CARE?YES HAS THE PATIENT BEEN EDUCATED REGARDING PAIN, THE RISK FOR PAIN, THE IMPORTANCE OF EFFECTIVE PAIN MANAGEMENT, AND THE PAIN ASSESSMENT PROCESS?YES ADVANCE DIRECTIVE ADVANCE DIRECTIVE DISCUSSED WITH PATIENT:YES PT DOES NOT HAVE HCP AND DECLINES INFO AND ASSISTANCE AT THIS TIME. HOSPITALIZATION/MAJOR DIAGNOSTIC PROCEDURE SURIGCAL RELATED SMC CELLULITIS RIGHT GROIN WITH ABSCESS 10/06-10/09/17 REVIEW OF SYSTEMS REVIEWED BY: PROVIDER: BROCK OTOT . CONSTITUTIONAL: ANY CHANGE IN YOUR MEDICAL CONDITION? NO . CHILLS NO . FEVER NO . INFECTION: DO YOU HAVE NEW INFECTIONS? NO . DO YOU HAVE HISTORY OF MRSA? NO . MUSCULOSKELETAL: ANY NEW PATTERNS OF PAIN OR NUMBNESS? NO . GASTROENTEROLOGY: ANY NEW CHANGE IN BOWEL CONTROL? NO . GENITOURINARY: ANY NEW CHANGE IN BLADDER CONTROL? NO . IS THERE A CHANCE YOU COULD BE ? NO . HEMATOLOGY/LYMPH: DO YOU TAKE ANY BLOOD THINNERS? (FOR EXAMPLE- COUMADIN, PLAVIX, AGGRENOX, PLATEL, PRADAXA, OR XARELTO) NO . WHEN WAS YOUR LAST DOSE? DATE: TIME: . NEUROLOGY: HAVE YOU FALLEN IN THE PAST 12 MONTHS? NO . ANY NEW EXTREMITY NUMBNESS OR WEAKNESS? NO . CARDIOLOGY: DO YOU HAVE A PACEMAKER OR DEFIBRILLATOR? NO . RESPIRATORY: HAVE YOU BEEN SICK IN THE PAST WEEK? NO . FEVER NO . FLU LIKE SYMPTOMS? NO . COUGH NO . INTEGUMENTARY: DO YOU HAVE ANY RASHES OR OPEN SORES? NO . ALLERGIC/IMMUNO: ARE YOU ALLERGIC TO IV DYE? NO . ANY NEW ALLERGIES? NO . PSYCHIATRIC: DO YOU HAVE THOUGHTS OF HURTING YOURSELF OR SOMEONE ELSE? NO . ARE YOU ABUSED, NEGLECTED, OR IN AN UNSAFE ENVIRONMENT? NO . ENDOCRINOLOGY: ARE YOU DIABETIC? NO . OTHER: DO YOU NEED ANY PRESCRIPTIONS? NO . IF YES, PLEASE LIST: ____ . ANY NEW PROBLEMS WITH YOUR MEDICATIONS? NO . WHEN DID YOU LAST EAT? ____ . WHEN DID YOU LAST DRINK? ____ . WHAT DID YOU LAST DRINK? ____ . NAME OF PERSON DRIVING YOU HOME? ____ . DO YOU HAVE ANY OTHER QUESTIONS OR CONCERNS NO . EXAMINATION GENERAL EXAMINATION: GENERALNO ACUTE DISTRESS, WELL NOURISHED AND HYDRATED. PSYCHAPPROPRIATE MOOD AND AFFECT . FACE:UNREMARKABLE. PATIENT DEMONSTRATES TENDERNESS OVER RIGHT GROIN AREA WITH PALPATION. 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 OTHERS NOTES: VITALS NOT OBTAINED DUE TO VIRTUAL VISIT PRE SCREENING COMPLETED, 08/20/19, NA. PREVENTIVE MEDICINE PAIN CLINIC TEACHING: PROCEDURE TEACHING GENITOFEMORAL NERVE BLOCK PROCEDURE REVIEWED WITH PT ALONG WITH PRE-PROCEDURE INSTRUCTIONS AND PATIENT VERBALIZED UNDERSTANDING. PRE-PROCEDURE INSTRUCTIONS MAILED TO PATIENT DUE TO VIRTUAL VISIT. AD. DISPOSITION & COMMUNICATION FOLLOW UP POST (REASON: RIGHT GENITOFEMORAL NERVE BLOCK WITH IV SEDATION) ELECTRONICALLY SIGNED BY FAM CERRATO ON 08/22/2019 AT 03:58 PM EDT DISCLAIMER : THIS IS A VISIT SUMMARY EXTRACTED FROM THE [employer] CHART. IT IS NOT A COPY OF THE [employer] PROGRESS NOTE. MARY
== END ==
LOC: M PAIN 11:30 → M TMPAIN 11:30
PROVIDERS: ATTEND Nurse Practitioner Family
DX: M79.2 Neuralgia and neuritis, unspecified (principal); G58.8 Other specified mononeuropathies

== ENCOUNTER → 2019-09-01 | Outpatient (CLI) | payer MEDICARE, MEDICAID | LOC: M LABSMTC 11:10 | PROVIDERS: ATTEND Anesthesiology | DX: Z03.818 Encounter for observation for suspected exposure to other biological agents ruled out (principal); Z11.59 Encounter for screening for other viral diseases | CPT/HCPCS: C9803; U0003 ==

== ENCOUNTER → 2019-09-02 | Outpatient (CLI) | payer MEDICARE, MEDICAID ==
--- NOTE | 2019-09-04 00:48 | ECWPNPC ---
PATIENT NAME: OBED RAO : 1980 GENDER: MALE VISIT DATE: 09/02/2019 DISCHARGE DATE: 09/02/19 1415 VISIT LOCKED DATE TIME: PHYSICIAN: ANGELINA HERNANDEZ MD RESOURCE: ANGELINA HERNANDEZ MD REASON FOR APPOINTMENT 1. PRE SEDATERIGHT GENITOFEMORAL NERVE BLOCK WITH IV SEDATION HISTORY OF PRESENT ILLNESS GENERAL: 39 YEAR OLD MALE PATIENT WITH A HISTORY OF CHRONIC RIGHT GENITOFEMORAL PAIN. THE PATIENT DESCRIBES HIS PAIN ACHING, CONTINUOUS, SHARP, STABBING, SHOOTING WITH A PAIN SCORE OF 5-9/10-10 DEPENDING ON PHYSICAL ACTIVITY. THE PATIENT HAS RECEIVED A GENITOFEMORAL BLOCK IN THE PAST THAT HAS HELPED WITH HIS PAIN. THE PATIENT SAYS HE IS INTERESTED IN RECEIVING ANOTHER ONE TO HELP WITH HIS CURRENT PAIN. PATIENT DENIES UNEXPLAINABLE WEIGHT LOSS, FEVER, CHILLS, NEW CHANGES ON HIS URINARY OR BOWEL CONTROL. FALL RISK SCREENING: SCREENING :NO FALLS REPORTED IN THE LAST YEAR PAIN SCREENING: PATIENT HAS A COMPLAINT OF ACUTE OR CHRONIC PAIN :YES 6/10 LOCATION OF PAIN:OTHER: RIGHT GROIN, LOW BACK INTENSITY OF PAIN (SCALE OF 1 TO 10):6 WHAT DOES YOUR PAIN FEEL LIKE:ACHING, CONTINOUS, SHARP, STABBING, SHOOTING DURATION:CONTINOUS PAIN IS INCREASED BY:OTHERS INTERCOURSE PAIN IS DECREASED BY:USE OF PAIN MEDICATIONS NURSING NOTE: -. PAIN CENTER INTAKE QUESTIONS: DO YOU HAVE A HISTORY OF MRSA? :NO DO YOU TAKE A BLOOD THINNERS? :NO DO YOU HAVE ANY BLEEDING DISORDERS? :NO ANY NEW NUMBNESS OR WEAKNESS IN YOUR LEGS OR ARMS? :NO ANY PACEMAKER,DEFIBRILLATOR, OR DORSAL COLUMN STIMULATOR? :NO DO YOU HAVE ANY RASHES OR OPEN SORES? :NO ARE YOU ALLERGIC TO IV DYE? :NO ARE YOU DIABETIC? :NO ANY NEW PROBLEMS WITH YOUR MEDICATIONS? :NO HAVE YOU RECEIVED A VACCINE IN THE PAST 30 DAYS? :NO DO YOU PLAN TO RECEIVE A VACCINE IN THE NEXT 21 DAYS? :NO DO YOU NEED ANY PRESCRIPTION? :NO DO YOU TAKE ANY IMMUNOSUPPRESSIVE MEDICATIONS? :NO CURRENT MEDICATIONS TAKING PROPRANOLOL HCL 20 MG TABLET 1 TABLET ORALLY TWICE A DAY TAKING PRIMIDONE 50 MG TABLET 1 ORALLY PO BID TAKING DEPAKOTE ER 500 MG TABLET EXTENDED RELEASE 24 HOUR 3 TABS ORALLY DAILY TAKING VITAMIN C 500 MG TABLET CHEWABLE 1 TABLET ORALLY ONCE A DAY- OTC TAKING EXCEDRIN TENSION HEADACHE 500-65 MG TABLET 2 TABLETS NEEDED ORALLY THREE TIMES A DAY TAKING OMEPRAZOLE 40 MG CAPSULE DELAYED RELEASE 1 CAPSULE ORALLY BID TAKING SIMVASTATIN 40 MG TABLET 1 TABLET IN THE EVENING ORALLY ONCE A DAY TAKING FLONASE ALLERGY RELIEF 50 MCG/ACT SUSPENSION 1 SPRAY IN EACH NOSTRIL NASALLY ONCE A DAY TAKING MONTELUKAST SODIUM 10 MG TABLET 1 TABLET ORALLY ONCE A DAY TAKING AYR SALINE NASAL NETI RINSE 1.57 GM PACKET DIRECTED NASALLY DAILY TAKING ALBUTEROL SULFATE HFA 108 (90 BASE) MCG/ACT AEROSOL SOLUTION 2 PUFFS NEEDED INHALATION EVERY 6 HRS TAKING VITAMIN D 50 MCG (2000 UT) CAPSULE 1 CAPSULE ORALLY ONCE A DAY TAKING AYANNA ALLERGY 180 MG TABLET 1 TABLET NEEDED ORALLY ONCE A DAY TAKING GABAPENTIN 100 MG CAPSULE 1 CAPSULE ORALLY FOR PAIN TID TAKING NICORETTE 4 MG GUM 1 PIECE FOR 30 MINUTE NEEDED MOUTH/THROAT 24 TIME(S) A DAY TAKING RELPAX 20 MG TABLET 1 TABLET ORALLY ONCE A DAY TAKING BOTOX 100 UNIT SOLUTION RECONSTITUTED DIRECTED INJECTION EVERY MONTH NOT-TAKING NICOTROL 10 MG INHALER 1 CARTRIDGE NEEDED INHALATION 16 TIME(S) A DAY NOT-TAKING AMOXICILLIN 500 MG CAPSULE 1 CAPSULE ORALLY EVERY 12 HRS NOT-TAKING CYMBALTA 60 MG CAPSULE DELAYED RELEASE PARTICLES 1 CAPSULE ORALLY FOR PAIN DAILY NOT-TAKING HIBICLENS 4 % LIQUID DIRECTED EXTERNALLY DAILY AT PELVIC AREA NOT-TAKING CETIRIZINE HCL 10 MG TABLET 1 TABLET ORALLY ONCE A DAY NOT-TAKING ZOLMITRIPTAN 5 MG TABLET 1 TABLET NEEDED ONE TIME ORALLY ONCE A DAY NOT-TAKING SUCRALFATE 1 GM TABLET ORAL DIRECTED NOT-TAKING PERCOCET 10-325 MG TABLET 1 TABLET NEEDED ORALLY EVERY 6 HRS, NOTES: FOR SINUS SURGERY NOT-TAKING KEFLEX 500 MG CAPSULE 1 CAPSULE ORALLY EVERY 12 HRS MEDICATION LIST REVIEWED AND RECONCILED WITH THE PATIENT PAST MEDICAL HISTORY HIGH CHOLESTEROL BIPOLAR ADHD ALLERGIES ASTHMA SLEEP APNEA 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 COLONOSCOPY 03/2018: MILD NONSPECIFIC CHRONIC INFLAMMATION NOTED ON BIOPSY, NO ACTIVE COLITIS, DYSPLASIA OR GRANULOMA IDENTIFIED EGD 03/2018: MILD CHRONIC GASTRITIS NOTED ON BIOPSY, NO H-PYLORI RIANNA: MANAGED BY NEUROLOGY SCROTAL PAIN ED- FOLLOWING WITH UROLOGY CARTHAGE 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 INFECTION ALLERGIES SEASONAL ALLERGIES: SNEEZING, COUGHING - ALLERGY SURGICAL HISTORY PERIANAL ABCESS X2 - MIHIR, DR DEMARCO SCHAFER 10/2015 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/UROLOGY, WITH SEVERE SCAR TISSUE 2017 ENDOSCOPY UPPER AND LOWER, WITH BX-[facility], ADDITIONAL TESTING 03/2018 SINUS SURGERY- POLYP FAMILY HISTORY FATHER: 80 YRS, DIAGNOSED WITH OTHER MALIGNANT NEOPLASM OF UNSPECIFIED SITE MOTHER: ALIVE 54 YRS, HYPERTENSION SIBLINGS: UNKNOWN SON(S): ALIVE DAUGHTER(S): ALIVE 1 YRS PATERNAL GRAND FATHER: UNKNOWN PATERNAL GRAND MOTHER: UNKNOWN MATERNAL GRAND FATHER: 65 YRS, DIABETES, HYPERTENSION, UNSPECIFIED HEART DISEASE MATERNAL GRAND MOTHER: 68 YRS, HYPERTENSION, UNSPECIFIED HEART DISEASE - HTN, HIGH CHOLESTEROL, ALLERGIES, ASTHMA, 1YR DAUGHTER, 1MONTH OLD SON- NO KNOWN RAGHAVENDRA ISSUES, MATERNAL GRANDPARENTS- GRANDMOTHER 65, DM, HEART, CHOLESTEROL, HTN, PARKINSONS,GRANDFATHER- 68 HEART DISEASE, HTN, NADIA CHOLESTEROL, COUGH-THROAT CLOSING-ISSUES. SOCIAL HISTORY GENERAL: TOBACCO USE ARE YOU A:FORMER SMOKER NICOTINE GUM HOW LONG HAS IT BEEN SINCE YOU LAST SMOKED?6-12 MONTHS SMOKING CESSATION INFORMATION GIVEN06/06/2019 LATEX QUESTIONNAIRE LATEX ALLERGY : HAVE YOU EVER DEVELOPED ANY TYPE OF REACTION AFTER HANDLING LATEX PRODUCTS SUCH RUBBER GLOVES, CONDOMS, DIAPHRAGMS, BALLOONS, SOCKS, OR UNDERWEAR?NO LATEX ALLERGY : HAVE YOU EVER DEVELOPED ANY TYPE OF REACTION DURING OR AFTER DENTAL APPOINTMENT, VAGINAL/RECTAL EXAMINATION, SURGICAL PROCEDURE, OR ANY OTHER EXPOSURE?NO DATE ASKED : 08/06/2019 LATEX RISK : HAVE YOU EVER HAD ANY DIFFICULTY BREATHING OR HIVES AFTER EATING OR HANDLING ANY FRUITS, OR VEGETABLES; SUCH KIWI, BANANAS, STONE FRUITS, OR CHESTNUTSNO LATEX RISK : DO YOU HAVE A PREVIOUS PERSONAL HISTORY OF MORE THAN NINE SURGERIES, SPINA BIFIDA, OR REPEATED CATHERIZATIONS? YES - PLEASE INDICATE : > 9 SURGERIES LATEX RISK : ARE YOU FREQUENTLY EXPOSED TO LATEX PRODUCTS IN YOUR OCCUPATION?NO ALCOHOL SCREENING DID YOU HAVE A DRINK CONTAINING ALCOHOL IN THE PAST YEAR?YES HOW OFTEN DID YOU HAVE SIX OR MORE DRINKS ON ONE OCCASION IN THE PAST YEAR?NEVER (0 POINTS) HOW MANY DRINKS DID YOU HAVE ON A TYPICAL DAY WHEN YOU WERE DRINKING IN THE PAST YEAR?1 OR 2 (0 POINTS) HOW OFTEN DID YOU HAVE A DRINK CONTAINING ALCOHOL IN THE PAST YEAR?MONTHLY OR LESS (1 POINT) POINTS1 INTERPRETATIONNEGATIVE RECREATIONAL DRUG USE DRUG USE?NO DENIES 09/02/19 CAFFEINE CAFFEINE USE?NO PEPSI 3 BOTTLES A DAY SEXUAL HX HAD SEX IN THE LAST 12 MONTHS (VAGINAL, ORAL, OR ANAL)?YES WITHWOMEN ONLY PREVENTION STRATEGIES DISCUSSED:OTHER USE PROTECTION?NO HAVE YOU EVER HAD AN STD?NO HIV / HEP-C SCREENING HIV TEST OFFERED TO PATIENT:YES DATE OFFERED:05/01/2017 TEST ACCEPTED:NO REASON:PATIENT DECLINED YARSANISM [id number] ORIENTAL ORTHODOX LANGUAGE LANGUAGES SPOKEN:MOLDOVAN EDUCATION LEVEL OF EDUCATION:HIGH SCHOOL LEARNING BARRIERS / SPECIAL NEEDS CHANGE FROM LAST VISIT?NO BARRIERS TO LEARNING?NO HEARING IMPAIRED?NO VISION IMPAIRED?YES COGNITIVELY IMPAIRED?NO :CORRECTIVE LENSES READINESS TO LEARN?YES LEARNING PREFERENCES?NO LEARNING CAPABILITIES PRESENT?YES EMOTIONAL BARRIERS?NO SPECIAL DEVICES?NO WHEEL POLISHER NEEDED?NO DOMESTIC VIOLENCE DO YOU FEEL SAFE IN YOUR ENVIRONMENT?YES OCCUPATION: UNEMPLOYED. DIET: REGULAR. EXERCISE: DAILY, WALKS. MARITAL STATUS: SINGLE. OTHERS AT HOME: CHILDREN. NEW PATIENT PAIN DIARY TODAY'S VISITNOTES 08/06/19 PATIENT DESCRIBES PAIN :ACHING, HAVE IT ALL THE TIME, TENDER, THROBBING FROM 0-10, WHAT LEVEL IS YOUR PAIN TODAY?5 PRECIPITATING FACTORS INTERCORSE ALLEVIATING FACTORS NOTHING IMPACT ON FUNCTION NO PAIN CLINIC PFS, CLERGY, PUBLIC HEALTH REFERRALS WAS THE PROVIDER NOTIFIED OF ANY PERTINENT INFO?YES HAS THE PATIENT BEEN EDUCATED REGARDING HIS/HER PLAN OF CARE?YES HAS THE PATIENT BEEN EDUCATED REGARDING PAIN, THE RISK FOR PAIN, THE IMPORTANCE OF EFFECTIVE PAIN MANAGEMENT, AND THE PAIN ASSESSMENT PROCESS?YES ADVANCE DIRECTIVE ADVANCE DIRECTIVE DISCUSSED WITH PATIENT:YES PT DOES NOT HAVE HCP AND DECLINES INFO AND ASSISTANCE AT THIS TIME. HOSPITALIZATION/MAJOR DIAGNOSTIC PROCEDURE SURIGCAL RELATED SMC CELLULITIS RIGHT GROIN WITH ABSCESS 10/06-10/09/17 REVIEW OF SYSTEMS CONSTITUTIONAL: ANY RECENT FEVER OR ILLNESS NO . CHILLS NO . GASTROENTEROLOGY: BOWEL INCONTINENCE NO . ANY NEW CHANGE IN BOWEL CONTROL? NO . ABDOMINAL PAIN NO . CONSTIPATION NO . GENITOURINARY: ANY NEW CHANGE IN BLADDER CONTROL? NO . IS THERE A CHANCE YOU COULD BE ? NO . URINARY INCONTINENCE NO . CARDIOLOGY: CHEST PRESSURE NO . CHEST PAIN NO . RESPIRATORY: COUGH NO . SHORTNESS OF BREATH NO . VITAL SIGNS WT 205.8 LBS, HT 65 IN, BMI 34.24 INDEX, BP 133/79 MM HG, HR 86 /MIN, RR 20 /MIN, TEMP 97.8 F, OXYGEN SAT % 98%, NA INITIALS SC 13:44, REVIEWED BY: LS. EXAMINATION GENERAL: PATIENT IS ALERT O X 3 AND COOPERATIVE. LUNGS CLEAR, TO AUSCULTATION. HEART: NO MURMURS OR GALLOPS; FACIAL CRANIAL NERVES ARE GROSSLY NORMAL. GOOD SYMMETRY OF FACIAL MUSCLE MOVEMENT. NORMAL VISUAL FLOYD. TENDERNESS OVER THE RIGHT INGUINAL AREA. 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 RAO'S PAIN MANAGEMENT CASE. THE PATIENT HAS RECEIVED A GENITOFEMORAL BLOCK IN THE PAST THAT ADEQUATELY COVERED HIS PAIN AND HE IS INTERESTED IN RECEIVING ANOTHER ONE AT THIS TIME. DUE TO THE PATIENT'S PAIN, I WOULD LIKE TO MOVE FORWARD WITH A RIGHT GENITOFEMORAL NERVE BLOCK AT THIS TIME. THE PATIENT WOULD LIKE TO MOVE FORWARD WITH IV SEDATION DUE TO DISCOMFORT, PAIN, AND ANXIETY ASSOCIATED WITH THE PROCEDURE. THE PATIENT WILL FOLLOW UP IN SEVERAL WEEKS AFTER HIS INJECTION TO SEE HOW IT IS HELPING WITH HIS PAIN. INSTRUCTIONS WERE GIVEN, QUESTIONS WERE ANSWERED, PATIENT REPORTS UNDERSTANDING AND AGREES WITH THE PLAN. I, NABILA BEAULIEU, DOCUMENTED THE ABOVE INFORMATION ACTING A SCRIBE FOR DR. HERNANDEZ. I HAVE REVIEWED THE ABOVE DOCUMENT, WRITTEN BY NABILA MANRIQUEZ AND I VERIFY THAT IT IS ACCURATE. . PREVENTIVE MEDICINE PAIN CLINIC TEACHING: PROCEDURE TEACHING PRE-PROCEDURE INSTRUCTIONS REVIEWED WITH PT. VERBALIZED UNDERSTANDING.. PROCEDURE CODES FA211 ESTABILISHED PATIENT [facility] FACILITY CHARGE G8427 CURRENT MEDS W/DOSAGES DOCUMENTED [id number] PAIN ASSESS POS TOOL F/U PLAN DOC DISPOSITION & COMMUNICATION FOLLOW UP 1 WEEK (REASON: RIGHT GENITOFEMORAL NERVE BLOCK WITH IV SEDATE) ELECTRONICALLY SIGNED BY ANGELINA HERNANDEZ MD, MD ON 09/03/2019 AT 11:30 AM EDT DISCLAIMER : THIS IS A VISIT SUMMARY EXTRACTED FROM THE [employer] CHART. IT IS NOT A COPY OF THE [employer] PROGRESS NOTE. MTDD
== END ==
LOC: M PAIN 14:00
PROVIDERS: ATTEND Anesthesiology
DX: G58.8 Other specified mononeuropathies (principal)

== ENCOUNTER → 2019-09-04 | Outpatient (CLI) | payer MEDICARE, MEDICAID ==
[~2019-09-04] MED LIST changes: +BUPIVACAINE HCL 0.25% 30ML VIAL As Ordered ONE; +ISOVUE-M 300 61% 15ML VIAL As Ordered ONE; +LIDOCAINE 1% SDV 30ML VIAL As Ordered ONE; +MIDAZOLAM INJ 2MG/2ML VIAL (J2250 PER 1MG) As Ordered ONE; +dexameTHASONE 10MG/1ML VIAL PRES.FREE (J1100 PER 1MG) As Ordered ONE; +fentaNYL 100 MCG/2 ML INJECTION (J3010) As Ordered ONE
--- NOTE | 2019-09-05 00:42 | ECWPNPC ---
PATIENT NAME: OBED RAO : 1980 GENDER: MALE VISIT DATE: 09/04/2019 DISCHARGE DATE: 09/04/19 1244 VISIT LOCKED DATE TIME: PHYSICIAN: ANGELINA HERNANDEZ MD RESOURCE: ANGELINA HERNANDEZ MD REASON FOR APPOINTMENT 1. RIGHT GENITOFEMORAL NERVE BLOCK WITH IV SEDATION PAT COMPLETE HISTORY OF PRESENT ILLNESS GENERAL: -. FALL RISK SCREENING: SCREENING :NO FALLS REPORTED IN THE LAST YEAR PAIN SCREENING: PATIENT HAS A COMPLAINT OF ACUTE OR CHRONIC PAIN :YES LOCATION OF PAIN:OTHER: RIGHT GROIN INTENSITY OF PAIN (SCALE OF 1 TO 10):7 WHAT DOES YOUR PAIN FEEL LIKE:BURNING, CONTINOUS, SORE DURATION:CONSTANT NURSING NOTE: -. PAIN CENTER INTAKE QUESTIONS: DO YOU HAVE A HISTORY OF MRSA? :NO DO YOU TAKE A BLOOD THINNERS? :NO DO YOU HAVE ANY BLEEDING DISORDERS? :NO ANY NEW NUMBNESS OR WEAKNESS IN YOUR LEGS OR ARMS? :NO ANY PACEMAKER,DEFIBRILLATOR, OR DORSAL COLUMN STIMULATOR? :NO DO YOU HAVE ANY RASHES OR OPEN SORES? :NO ARE YOU ALLERGIC TO IV DYE? :NO ARE YOU DIABETIC? :NO ANY NEW PROBLEMS WITH YOUR MEDICATIONS? :NO HAVE YOU RECEIVED A VACCINE IN THE PAST 30 DAYS? :NO DO YOU PLAN TO RECEIVE A VACCINE IN THE NEXT 21 DAYS? :NO DO YOU TAKE ANY IMMUNOSUPPRESSIVE MEDICATIONS? :NO ANY HISTORY OF SEIZURES? :NO ANY HISTORY OF CARDIAC ISSUES OR EVENTS? :NO DO YOU HAVE SLEEP APNEA? :YES AUTO PAP. ANY RECENT HEAD INJURY? :NO DO YOU HAVE ANY NEW INFECTIONS? :NO IS THERE A CHANCE YOU COULD BE ? :NO ARE YOU BREAST FEEDING? :NO WHEN DID YOU LAST EAT? : 09/02 1799 WHEN DID YOU LAST DRINK? : 09/03 829 WHAT DID YOU LAST DRINK? : WATER NAME OF PERSON DRIVING YOU HOME? : MOM-MISTY DO YOU HAVE ANY OTHER QUESTIONS OR CONCERNS? : NO CURRENT MEDICATIONS TAKING PROPRANOLOL HCL 20 MG TABLET 1 TABLET ORALLY TWICE A DAY, NOTES: 09/02 1799 TAKING PRIMIDONE 50 MG TABLET 1 ORALLY PO BID, NOTES: 09/02 1799 TAKING DEPAKOTE ER 500 MG TABLET EXTENDED RELEASE 24 HOUR 3 TABS ORALLY DAILY, NOTES: 09/02 1799 TAKING VITAMIN C 500 MG TABLET CHEWABLE 1 TABLET ORALLY ONCE A DAY- OTC, NOTES: 09/02 1799 TAKING EXCEDRIN TENSION HEADACHE 500-65 MG TABLET 2 TABLETS NEEDED ORALLY THREE TIMES A DAY, NOTES: APPRX 2 WEEKS AGO TAKING OMEPRAZOLE 40 MG CAPSULE DELAYED RELEASE 1 CAPSULE ORALLY BID, NOTES: 09/02 1799 TAKING SIMVASTATIN 40 MG TABLET 1 TABLET IN THE EVENING ORALLY ONCE A DAY, NOTES: 09/02 1799 TAKING FLONASE ALLERGY RELIEF 50 MCG/ACT SUSPENSION 1 SPRAY IN EACH NOSTRIL NASALLY ONCE A DAY, NOTES: 09/02 1799 TAKING MONTELUKAST SODIUM 10 MG TABLET 1 TABLET ORALLY ONCE A DAY, NOTES: 09/02 1799 TAKING AYR SALINE NASAL NETI RINSE 1.57 GM PACKET DIRECTED NASALLY DAILY, NOTES: 09/02 1799 TAKING ALBUTEROL SULFATE HFA 108 (90 BASE) MCG/ACT AEROSOL SOLUTION 2 PUFFS NEEDED INHALATION EVERY 6 HRS, NOTES: APPRX 2 WEEKS TAKING VITAMIN D 50 MCG (2000 UT) CAPSULE 1 CAPSULE ORALLY ONCE A DAY, NOTES: 09/02 1799 TAKING AYANNA ALLERGY 180 MG TABLET 1 TABLET NEEDED ORALLY ONCE A DAY, NOTES: 09/02 1799 TAKING GABAPENTIN 100 MG CAPSULE 1 CAPSULE ORALLY FOR PAIN TID, NOTES: 09/02 1799 TAKING NICORETTE 4 MG GUM 1 PIECE FOR 30 MINUTE NEEDED MOUTH/THROAT 24 TIME(S) A DAY, NOTES: 09/03 729 TAKING RELPAX 20 MG TABLET 1 TABLET ORALLY ONCE A DAY, NOTES: LAST WEEK TAKING BOTOX 100 UNIT SOLUTION RECONSTITUTED DIRECTED INJECTION EVERY MONTH, NOTES: LAST WEEK NOT-TAKING NICOTROL 10 MG INHALER 1 CARTRIDGE NEEDED INHALATION 16 TIME(S) A DAY NOT-TAKING AMOXICILLIN 500 MG CAPSULE 1 CAPSULE ORALLY EVERY 12 HRS NOT-TAKING CYMBALTA 60 MG CAPSULE DELAYED RELEASE PARTICLES 1 CAPSULE ORALLY FOR PAIN DAILY NOT-TAKING HIBICLENS 4 % LIQUID DIRECTED EXTERNALLY DAILY AT PELVIC AREA NOT-TAKING CETIRIZINE HCL 10 MG TABLET 1 TABLET ORALLY ONCE A DAY NOT-TAKING ZOLMITRIPTAN 5 MG TABLET 1 TABLET NEEDED ONE TIME ORALLY ONCE A DAY NOT-TAKING SUCRALFATE 1 GM TABLET ORAL DIRECTED NOT-TAKING PERCOCET 10-325 MG TABLET 1 TABLET NEEDED ORALLY EVERY 6 HRS, NOTES: FOR SINUS SURGERY NOT-TAKING KEFLEX 500 MG CAPSULE 1 CAPSULE ORALLY EVERY 12 HRS MEDICATION LIST REVIEWED AND RECONCILED WITH THE PATIENT PAST MEDICAL HISTORY HIGH CHOLESTEROL BIPOLAR ADHD ALLERGIES ASTHMA SLEEP APNEA 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 COLONOSCOPY 03/2018: MILD NONSPECIFIC CHRONIC INFLAMMATION NOTED ON BIOPSY, NO ACTIVE COLITIS, DYSPLASIA OR GRANULOMA IDENTIFIED EGD 03/2018: MILD CHRONIC GASTRITIS NOTED ON BIOPSY, NO H-PYLORI RIANNA: MANAGED BY NEUROLOGY SCROTAL PAIN ED- FOLLOWING WITH UROLOGY CARTDINO VARICOSE VIENS TESTICLES- UROLOGY CARTISAMARGE TREMORS SINUS INFECTION ALLERGIES SEASONAL ALLERGIES: SNEEZING, COUGHING - ALLERGY SURGICAL HISTORY PERIANAL ABCESS X2 - MIHIR, DR DEMARCO SCHAFER 10/2015 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 - MIHIR, (?REACTION TO DYE) 12/2015 R SHOULDER ROTATOR CUFF, SOS 2017 ALL UPPER TEETH EXT, TAI DENTAL, 2018 VASECTOMY- [facility]/UROLOGY, WITH SEVERE SCAR TISSUE 2017 ENDOSCOPY UPPER AND LOWER, WITH BX-SMC, ADDITIONAL TESTING 03/2018 SINUS SURGERY- POLYP FAMILY HISTORY FATHER: 80 YRS, DIAGNOSED WITH OTHER MALIGNANT NEOPLASM OF UNSPECIFIED SITE MOTHER: ALIVE 54 YRS, HYPERTENSION SIBLINGS: UNKNOWN SON(S): ALIVE DAUGHTER(S): ALIVE 1 YRS PATERNAL GRAND FATHER: UNKNOWN PATERNAL GRAND MOTHER: UNKNOWN MATERNAL GRAND FATHER: 65 YRS, DIABETES, HYPERTENSION, UNSPECIFIED HEART DISEASE MATERNAL GRAND MOTHER: 68 YRS, HYPERTENSION, UNSPECIFIED HEART DISEASE - HTN, HIGH CHOLESTEROL, ALLERGIES, ASTHMA, 1YR DAUGHTER, 1MONTH OLD SON- NO KNOWN RAGHAVENDRA ISSUES, MATERNAL GRANDPARENTS- GRANDMOTHER 65, DM, HEART, CHOLESTEROL, HTN, PARKINSONS,GRANDFATHER- 68 HEART DISEASE, HTN, NADIA CHOLESTEROL, COUGH-THROAT CLOSING-ISSUES. SOCIAL HISTORY GENERAL: TOBACCO USE ARE YOU A:FORMER SMOKER NICOTINE GUM HOW LONG HAS IT BEEN SINCE YOU LAST SMOKED?6-12 MONTHS SMOKING CESSATION INFORMATION GIVEN06/06/2019 LATEX QUESTIONNAIRE LATEX ALLERGY : HAVE YOU EVER DEVELOPED ANY TYPE OF REACTION AFTER HANDLING LATEX PRODUCTS SUCH RUBBER GLOVES, CONDOMS, DIAPHRAGMS, BALLOONS, SOCKS, OR UNDERWEAR?NO LATEX ALLERGY : HAVE YOU EVER DEVELOPED ANY TYPE OF REACTION DURING OR AFTER DENTAL APPOINTMENT, VAGINAL/RECTAL EXAMINATION, SURGICAL PROCEDURE, OR ANY OTHER EXPOSURE?NO LATEX RISK : HAVE YOU EVER HAD ANY DIFFICULTY BREATHING OR HIVES AFTER EATING OR HANDLING ANY FRUITS, OR VEGETABLES; SUCH KIWI, BANANAS, STONE FRUITS, OR CHESTNUTSNO LATEX RISK : DO YOU HAVE A PREVIOUS PERSONAL HISTORY OF MORE THAN NINE SURGERIES, SPINA BIFIDA, OR REPEATED CATHERIZATIONS? YES - PLEASE INDICATE : > 9 SURGERIES LATEX RISK : ARE YOU FREQUENTLY EXPOSED TO LATEX PRODUCTS IN YOUR OCCUPATION?NO DATE ASKED : 09/04/2019 ALCOHOL SCREENING DID YOU HAVE A DRINK CONTAINING ALCOHOL IN THE PAST YEAR?YES HOW OFTEN DID YOU HAVE SIX OR MORE DRINKS ON ONE OCCASION IN THE PAST YEAR?NEVER (0 POINTS) HOW MANY DRINKS DID YOU HAVE ON A TYPICAL DAY WHEN YOU WERE DRINKING IN THE PAST YEAR?1 OR 2 (0 POINTS) HOW OFTEN DID YOU HAVE A DRINK CONTAINING ALCOHOL IN THE PAST YEAR?MONTHLY OR LESS (1 POINT) POINTS1 INTERPRETATIONNEGATIVE RECREATIONAL DRUG USE DRUG USE?NO DENIES 09/02/19 CAFFEINE CAFFEINE USE?NO PEPSI 3 BOTTLES A DAY SEXUAL HX HAD SEX IN THE LAST 12 MONTHS (VAGINAL, ORAL, OR ANAL)?YES WITHWOMEN ONLY PREVENTION STRATEGIES DISCUSSED:OTHER USE PROTECTION?NO HAVE YOU EVER HAD AN STD?NO HIV / HEP-C SCREENING HIV TEST OFFERED TO PATIENT:YES DATE OFFERED:05/01/2017 TEST ACCEPTED:NO REASON:PATIENT DECLINED TAOISM [id number] JUDAISM LANGUAGE LANGUAGES SPOKEN:TAJIK EDUCATION LEVEL OF EDUCATION:HIGH SCHOOL LEARNING BARRIERS / SPECIAL NEEDS CHANGE FROM LAST VISIT?NO BARRIERS TO LEARNING?NO HEARING IMPAIRED?NO VISION IMPAIRED?YES :CORRECTIVE LENSES COGNITIVELY IMPAIRED?NO READINESS TO LEARN?YES LEARNING PREFERENCES?NO LEARNING CAPABILITIES PRESENT?YES EMOTIONAL BARRIERS?NO SPECIAL DEVICES?NO BRAID CUTTER NEEDED?NO DOMESTIC VIOLENCE DO YOU FEEL SAFE IN YOUR ENVIRONMENT?YES OCCUPATION: UNEMPLOYED. DIET: REGULAR. EXERCISE: DAILY, WALKS. MARITAL STATUS: SINGLE. OTHERS AT HOME: CHILDREN. PAIN CLINIC PFS, CLERGY, PUBLIC HEALTH REFERRALS WAS THE PROVIDER NOTIFIED OF ANY PERTINENT INFO?YES HAS THE PATIENT BEEN EDUCATED REGARDING HIS/HER PLAN OF CARE?YES HAS THE PATIENT BEEN EDUCATED REGARDING PAIN, THE RISK FOR PAIN, THE IMPORTANCE OF EFFECTIVE PAIN MANAGEMENT, AND THE PAIN ASSESSMENT PROCESS?YES ADVANCE DIRECTIVE ADVANCE DIRECTIVE DISCUSSED WITH PATIENT:YES 09/04/2019 PT DOES NOT HAVE HCP AND DECLINES INFO AND ASSISTANCE AT THIS TIME. AD HOSPITALIZATION/MAJOR DIAGNOSTIC PROCEDURE SURIGCAL RELATED SMC CELLULITIS RIGHT GROIN WITH ABSCESS 10/06-10/09/17 VITAL SIGNS WT 202.4 LBS, HT 65 IN, BMI 33.68 INDEX, BP 138/94 MM HG, HR 78 /MIN, RR 20 /MIN, TEMP 98.6 F, OXYGEN SAT % 97%, SAFE IN ENV? (Y/N) Y, NA INITIALS SC 10:45, REVIEWED BY: AD. EXAMINATION GENERAL EXAMINATION: THE PATIENT IS ALERT, ORIENTED TIMES THREE AND COOPERATIVE. HEART SHOWS REGULAR RHYTHM, NO MURMURS AND NO GALLOPS. LUNGS ARE CLEAR TO AUSCULTATION. 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 HERNANDEZ, IV INFUSED LACTATED RINGERS 600 CC, DRESSING TEGADERM DR. HERNANDEZ LOC: EFRAÍN,CONNIE 09/04/2019 11:27:31 AM > 1. ALERT, ORIENTED RESP: EFRAÍN,CONNIE 09/04/2019 11:27:37 AM > 1. REGULAR, NO DYSPNEA COLOR: EFRAÍN,CONNIE 09/04/2019 11:27:47 AM > 1. PINK SKIN: EFRAÍN,CONNIE 09/04/2019 11:27:53 AM > 1. WARM, DRY POSITION: 2. SUPINE VITALS: EFRAÍN,CONNIE 09/04/2019 11:35:36 AM > 124/73,60,16,99% EFRAÍN,CONNIE 09/04/2019 11:45:35 AM > 129/74,60,16,98% EFRAÍN,CONNIE 09/04/2019 11:50:08 AM > 119/71,67,16,99% EFRAÍN,CONNIE 09/04/2019 11:55:07 AM > 119/66,70,16,97% EFRAÍN,CONNIE 09/04/2019 12:00:43 PM > 114/74,67, 16, 97% EFRAÍN,CONNIE 09/04/2019 12:05:09 PM > 112/68,68,16,97% EFRAÍN,CONNIE 09/04/2019 12:10:09 PM > 116/72,66,16,98% [facility] 09/04/2019 12:15:30 PM > 104,57,63,14,94% [facility] 09/04/2019 12:20:35 PM > 130/75,66,16,94% [facility] 09/04/2019 12:39:04 PM > 120/83,68,16,95% DISCHARGED DISCHARGE: POST PAIN 0/10, DRESSING SITE DRY AND INTACT, IV DISCONTINUED, SITE CLEAR, CATHETER INTACT, GAIT STEADY, TEACHING COMPLETED, PATIENT ACKNOWLEDGES UNDERSTANDING YES, PATIENT DISCHARGED AT 1243 VIA W/C DUE TO IV SEDATION : [facility] 11:47:26 AM > VERSED 1 MGS IV BY Colt ANGELES RN EFRAÍN,SHELBY 09/04/2019 11:48:13 AM > FENTANYL 50 MCGS IV BY Colt ANGELES RN [facility],SHELBY 09/04/2019 12:00:06 PM > VERSED 1 MG IV BY Colt KENNY,SHELBY 09/04/2019 12:00:42 PM > FENTANYL 50 MCGS [facility] 12:04:09 PM > FENTANYL 50 MCGS IV BY Colt ANGELES RN GENITOFEMORALPRE-PROCEDURE DIAGNOSIS: RIGHT GENITOFEMORAL NEURALGIAPOST-PROCEDURE DIAGNOSIS: RIGHT GENTIOFEMORAL NEURALGIAPROCEDURE: RIGHT GENITOFEMORAL NERVE BLOCKSURGEON: ANGELINA HERNANDEZ MDANESTHESIA: LOCAL WITH IV SEDATIONCOMPLICATIONS: NONEPRE-PROCEDURE NOTE: I WENT THROUGH THE RISKS, ALTERNATIVES, AND BENEFITS ASSOCIATED WITH THIS PROCEDURE AND THE PATIENT EXPRESSED THAT HE WOULD LIKE TO PROCEED. THE PATIENT WOULD LIKE TO MOVE FORWARD WITH IV SEDATION DUE TO DISCOMFORT, PAIN AND ANXIETY ASSOCIATED WITH THE PROCEDURE. I DISCUSSED THAT THE USE OF STEROIDS MAY CONTRIBUTE TO IMMUNOSUPPRESSION OF THE PATIENT'S BODY AGAINST INFECTIONS SUCH THE NG VIRUS, COVID-19. THE PATIENT IS AWARE OF THE POTENTIAL COMPLICATIONS ASSOCIATED WITH AN INFECTION OF THIS VIRUS INCLUDING . THE PATIENT IS COVID-19 NEGATIVE. PROCEDURE NOTE: AFTER CONSENT WAS SIGNED, THE PATIENT WAS BROUGHT TO THE PROCEDURE ROOM AND PLACED IN THE SUPINE POSITION. THE RIGHT GENITOFEMORAL AREA WAS CLEANED WITH CHLORAPREP SOLUTION AND DRAPED ASEPTICALLY. PATIENT RECEIVED VERSED 2 MG AND FENTANYL 150 MCG IV IN DIVIDED DOSES. THE PROCEDURE WAS DONE UNDER STERILE STANDARD TECHNIQUES. I CHECKED THE LOCATION OF THE FEMORAL ARTERY. THEN, WITH THE ASSISTANCE OF A NERVE STIMULATOR, I WENT APPROXIMATELY 1 INCH LATERAL TO THE SYMPHYSIS PUBIS, FIRST AT 3.0 VOLTS AND THEN AT 0.5 VOLTS. THE PATIENT WAS HAVING STIMULATION TOWARDS THE RIGHT TESTICLE WHERE HIS USUAL PAIN IS. WE INJECTED A TOTAL OF 20 ML OF BUPIVACAINE 0.125% AND DEXAMETHASONE 10 MG. THERE WAS NO EVIDENCE OF BLOOD, PARESTHESIA OR VISCERAL PUNCTURE. THERE WAS NO EVIDENCE OF ANY COMPLICATIONS. EBL LESS THAN 5 ML. THE PATIENT TOLERATED THE PROCEDURE WITHOUT COMPLICATIONS AND WAS SENT TO THE RECOVERY ROOM WHERE HE WAS MOVING HIS EXTREMITIES AND DOING WELL. IV START TIME: 1147IV END TIME: 1218TOTAL FACE-TO FACE TIME WAS 19 MINUTES. POST-PROCEDURE NOTE: I WILL SEE THE PATIENT IN A FOLLOW UP IN THE NEXT FEW WEEKS. WE ARE LOOKING FOR LONG LASTING PAIN RELIEF WITH THIS INTERVENTION. THERE WERE NO COMPLICATIONS. INSTRUCTIONS WERE GIVEN, QUESTIONS WERE ANSWERED, AND THE PATIENT REPORTS UNDERSTANDING AND AGREES. THE PATIENT IS AWARE TO STAY HOME FOR THE NEXT WEEK, IF POSSIBLE, DUE TO COVID-19. I, JANET LOPEZ, DOCUMENTED THE ABOVE INFORMATION ACTING A SCRIBE FOR DR. HERNANDEZ. I HAVE REVIEWED THE ABOVE DOCUMENT, WRITTEN BY JANET LOPEZ, DISPLAY SPECIALIST, AND I VERIFY THAT IT IS ACCURATE. PROCEDURE CODES 02199 N BLOCK INJ ILIO-ING/HYPOGI, [place]IFIERS: [place] [address] MOD SED SAME PHYS/QHP 5/>YRS 87126 MOD SED SAME PHYS/QHP EA DISPOSITION & COMMUNICATION FOLLOW UP F/UP WITH MANAGER RFID (REASON: POST GENITOFEMORAL RT) ELECTRONICALLY SIGNED BY ANGELINA HERNANDEZ MD, MD ON 09/04/2019 AT 04:41 PM EDT DISCLAIMER : THIS IS A VISIT SUMMARY EXTRACTED FROM THE [employer] CHART. IT IS NOT A COPY OF THE [employer] PROGRESS NOTE. MARY
== END ==
LOC: M PAIN 11:15
PROVIDERS: ATTEND Anesthesiology
DX: G58.8 Other specified mononeuropathies (principal)
CPT/HCPCS: 64425; 99152; 99153; J1100; J2250; J3010; Q9967

== ENCOUNTER → 2019-09-09 | Outpatient (CLI) | payer MEDICARE, MEDICAID ==
[~2019-09-09] MED LIST changes: -BUPIVACAINE HCL 0.25% 30ML VIAL As Ordered ONE; -ISOVUE-M 300 61% 15ML VIAL As Ordered ONE; -LIDOCAINE 1% SDV 30ML VIAL As Ordered ONE; -MIDAZOLAM INJ 2MG/2ML VIAL (J2250 PER 1MG) As Ordered ONE; -dexameTHASONE 10MG/1ML VIAL PRES.FREE (J1100 PER 1MG) As Ordered ONE; -fentaNYL 100 MCG/2 ML INJECTION (J3010) As Ordered ONE
--- NOTE | 2019-09-11 01:54 | ECWPNPC ---
PATIENT NAME: OBED RAO : 1980 GENDER: MALE VISIT DATE: 09/09/2019 DISCHARGE DATE: 09/09/19 1431 VISIT LOCKED DATE TIME: PHYSICIAN: BROCK QUIGLEY RESOURCE: BROCK QUIGLEY REASON FOR APPOINTMENT 1. 30 MINUTE NBP- BACK/FEET/ANKLES HISTORY OF PRESENT ILLNESS GENERAL: PATIENT IS BEING SEEN TODAY TO ESTABLISH CARE FOR CHRONIC LOW BACK PAIN AND BILATERAL LEG PAIN. HE WAS FOLLOWED AT [facility] OVER THE PAST 3 OR 4 YEARS AND WOULD LIKE TO ESTABLISH CARE CLOSER TO HOME. LONG HISTORY OF CHRONIC LOW BACK PAIN. DENIES PRECIPITATING EVENT. HAS RECEIVED INJECTION THERAPY IN THE PAST FROM [facility] . PAIN IN LOW BACK IS AGGRAVATED WITH ACTIVITY. STATES HE HAS PAIN ACROSS HIS LOWER BACK, EVEN AT REST. -. FALL RISK SCREENING: SCREENING :NO FALLS REPORTED IN THE LAST YEAR PAIN SCREENING: PATIENT HAS A COMPLAINT OF ACUTE OR CHRONIC PAIN :YES LOCATION OF PAIN:LOW BACK, LEG(S), ANKLE(S) LOW BACK IS PAIN, DOWN BILATERAL LEGS, AND ANKLES ARE NUMB AND TINGLY INTENSITY OF PAIN (SCALE OF 1 TO 10):10 WHAT DOES YOUR PAIN FEEL LIKE:ACHING, CONTINOUS, THROBBING NUMBNESS AND TINGLING COME AND GO DURATION:CONSTANT, STEADY, ALL DAY PAIN IS INCREASED BY:ACTIVITIES PAIN IS DECREASED BY: NOTHING HELPS RIGHT NOW NURSING NOTE: -. PAIN CENTER INTAKE QUESTIONS: DO YOU HAVE A HISTORY OF MRSA? :NO DO YOU TAKE A BLOOD THINNERS? :NO DO YOU HAVE ANY BLEEDING DISORDERS? :NO ANY NEW NUMBNESS OR WEAKNESS IN YOUR LEGS OR ARMS? :YES NUMBNESS AND TINGLING IN BILATERAL LEGS ANKLES AND FEET ANY PACEMAKER,DEFIBRILLATOR, OR DORSAL COLUMN STIMULATOR? :NO DO YOU HAVE ANY RASHES OR OPEN SORES? :NO ARE YOU ALLERGIC TO IV DYE? :NO ARE YOU DIABETIC? :NO ANY NEW PROBLEMS WITH YOUR MEDICATIONS? :NO HAVE YOU RECEIVED A VACCINE IN THE PAST 30 DAYS? :NO DO YOU PLAN TO RECEIVE A VACCINE IN THE NEXT 21 DAYS? :NO DO YOU NEED ANY PRESCRIPTION? :NO DO YOU TAKE ANY IMMUNOSUPPRESSIVE MEDICATIONS? :NO ANY HISTORY OF SEIZURES? :NO ANY HISTORY OF CARDIAC ISSUES OR EVENTS? :NO DO YOU HAVE SLEEP APNEA? YES- AUTO PAP. ANY RECENT HEAD INJURY? :NO IS THERE A CHANCE YOU COULD BE ? :NO ARE YOU BREAST FEEDING? :NO CURRENT MEDICATIONS TAKING PROPRANOLOL HCL 20 MG TABLET 1 TABLET ORALLY TWICE A DAY TAKING PRIMIDONE 50 MG TABLET 1 ORALLY PO BID TAKING DEPAKOTE ER 500 MG TABLET EXTENDED RELEASE 24 HOUR 1 TABLET ORALLY THREE TIMES DAILY TAKING VITAMIN C 500 MG TABLET CHEWABLE 1 TABLET ORALLY ONCE A DAY- OTC TAKING EXCEDRIN TENSION HEADACHE 500-65 MG TABLET 2 TABLETS NEEDED ORALLY THREE TIMES A DAY TAKING OMEPRAZOLE 40 MG CAPSULE DELAYED RELEASE 1 CAPSULE ORALLY BID TAKING SIMVASTATIN 40 MG TABLET 1 TABLET IN THE EVENING ORALLY ONCE A DAY TAKING FLONASE ALLERGY RELIEF 50 MCG/ACT SUSPENSION 1 SPRAY IN EACH NOSTRIL NASALLY ONCE A DAY TAKING MONTELUKAST SODIUM 10 MG TABLET 1 TABLET ORALLY ONCE A DAY TAKING AYR SALINE NASAL NETI RINSE 1.57 GM PACKET DIRECTED NASALLY DAILY TAKING ALBUTEROL SULFATE HFA 108 (90 BASE) MCG/ACT AEROSOL SOLUTION 2 PUFFS NEEDED INHALATION EVERY 6 HRS TAKING VITAMIN D 50 MCG (2000 UT) CAPSULE 1 CAPSULE ORALLY ONCE A DAY TAKING AYANNA ALLERGY 180 MG TABLET 1 TABLET NEEDED ORALLY ONCE A DAY TAKING GABAPENTIN 100 MG CAPSULE 1 CAPSULE ORALLY FOR PAIN TID TAKING NICORETTE 4 MG GUM 1 PIECE FOR 30 MINUTE NEEDED MOUTH/THROAT 24 TIME(S) A DAY TAKING RELPAX 20 MG TABLET 1 TABLET ORALLY ONCE A DAY TAKING BOTOX 100 UNIT SOLUTION RECONSTITUTED DIRECTED INJECTION EVERY MONTH, NOTES: AUGUST 2019 NOT-TAKING NICOTROL 10 MG INHALER 1 CARTRIDGE NEEDED INHALATION 16 TIME(S) A DAY NOT-TAKING AMOXICILLIN 500 MG CAPSULE 1 CAPSULE ORALLY EVERY 12 HRS NOT-TAKING CYMBALTA 60 MG CAPSULE DELAYED RELEASE PARTICLES 1 CAPSULE ORALLY FOR PAIN DAILY NOT-TAKING HIBICLENS 4 % LIQUID DIRECTED EXTERNALLY DAILY AT PELVIC AREA NOT-TAKING CETIRIZINE HCL 10 MG TABLET 1 TABLET ORALLY ONCE A DAY NOT-TAKING ZOLMITRIPTAN 5 MG TABLET 1 TABLET NEEDED ONE TIME ORALLY ONCE A DAY NOT-TAKING SUCRALFATE 1 GM TABLET ORAL DIRECTED NOT-TAKING PERCOCET 10-325 MG TABLET 1 TABLET NEEDED ORALLY EVERY 6 HRS, NOTES: FOR SINUS SURGERY NOT-TAKING KEFLEX 500 MG CAPSULE 1 CAPSULE ORALLY EVERY 12 HRS MEDICATION LIST REVIEWED AND RECONCILED WITH THE PATIENT PAST MEDICAL HISTORY HIGH CHOLESTEROL BIPOLAR ADHD ALLERGIES ASTHMA SLEEP APNEA 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 COLONOSCOPY 03/2018: MILD NONSPECIFIC CHRONIC INFLAMMATION NOTED ON BIOPSY, NO ACTIVE COLITIS, DYSPLASIA OR GRANULOMA IDENTIFIED EGD 03/2018: MILD CHRONIC GASTRITIS NOTED ON BIOPSY, NO H-PYLORI RIANNA: MANAGED BY NEUROLOGY SCROTAL PAIN ED- FOLLOWING WITH UROLOGY CARTDINO VARICOSE VIENS TESTICLES- UROLOGY CARTISAMARGE TREMORS SINUS INFECTION ALLERGIES SEASONAL ALLERGIES: SNEEZING, COUGHING - ALLERGY SURGICAL HISTORY PERIANAL ABCESS X2 - MIHIR, DR DEMARCO SCHAFER 10/2015 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 - MIHIR, (?REACTION TO DYE) 12/2015 R SHOULDER ROTATOR CUFF, SOS 2017 ALL UPPER TEETH EXT, TAI DENTAL, 2018 VASECTOMY- [facility]/UROLOGY, WITH SEVERE SCAR TISSUE 2017 ENDOSCOPY UPPER AND LOWER, WITH BX-[facility], ADDITIONAL TESTING 03/2018 SINUS SURGERY- POLYP FAMILY HISTORY FATHER: 80 YRS, DIAGNOSED WITH OTHER MALIGNANT NEOPLASM OF UNSPECIFIED SITE MOTHER: ALIVE 54 YRS, HYPERTENSION SIBLINGS: UNKNOWN SON(S): ALIVE DAUGHTER(S): ALIVE 1 YRS PATERNAL GRAND FATHER: UNKNOWN PATERNAL GRAND MOTHER: UNKNOWN MATERNAL GRAND FATHER: 65 YRS, DIABETES, HYPERTENSION, UNSPECIFIED HEART DISEASE MATERNAL GRAND MOTHER: 68 YRS, HYPERTENSION, UNSPECIFIED HEART DISEASE - HTN, HIGH CHOLESTEROL, ALLERGIES, ASTHMA, 1YR DAUGHTER, 1MONTH OLD SON- NO KNOWN RAGHAVENDRA ISSUES, MATERNAL GRANDPARENTS- GRANDMOTHER 65, DM, HEART, CHOLESTEROL, HTN, PARKINSONS,GRANDFATHER- 68 HEART DISEASE, HTN, NADIA CHOLESTEROL, COUGH-THROAT CLOSING-ISSUES. SOCIAL HISTORY GENERAL: TOBACCO USE ARE YOU A:FORMER SMOKER NICOTINE GUM HOW LONG HAS IT BEEN SINCE YOU LAST SMOKED?6-12 MONTHS SMOKING CESSATION INFORMATION GIVEN06/06/2019 LATEX QUESTIONNAIRE LATEX ALLERGY : HAVE YOU EVER DEVELOPED ANY TYPE OF REACTION AFTER HANDLING LATEX PRODUCTS SUCH RUBBER GLOVES, CONDOMS, DIAPHRAGMS, BALLOONS, SOCKS, OR UNDERWEAR?NO LATEX ALLERGY : HAVE YOU EVER DEVELOPED ANY TYPE OF REACTION DURING OR AFTER DENTAL APPOINTMENT, VAGINAL/RECTAL EXAMINATION, SURGICAL PROCEDURE, OR ANY OTHER EXPOSURE?NO LATEX RISK : HAVE YOU EVER HAD ANY DIFFICULTY BREATHING OR HIVES AFTER EATING OR HANDLING ANY FRUITS, OR VEGETABLES; SUCH KIWI, BANANAS, STONE FRUITS, OR CHESTNUTSNO LATEX RISK : DO YOU HAVE A PREVIOUS PERSONAL HISTORY OF MORE THAN NINE SURGERIES, SPINA BIFIDA, OR REPEATED CATHERIZATIONS? YES - PLEASE INDICATE : > 9 SURGERIES LATEX RISK : ARE YOU FREQUENTLY EXPOSED TO LATEX PRODUCTS IN YOUR OCCUPATION?NO DATE ASKED : 09/09/2019 ALCOHOL SCREENING DID YOU HAVE A DRINK CONTAINING ALCOHOL IN THE PAST YEAR?YES HOW OFTEN DID YOU HAVE SIX OR MORE DRINKS ON ONE OCCASION IN THE PAST YEAR?NEVER (0 POINTS) HOW MANY DRINKS DID YOU HAVE ON A TYPICAL DAY WHEN YOU WERE DRINKING IN THE PAST YEAR?1 OR 2 (0 POINTS) HOW OFTEN DID YOU HAVE A DRINK CONTAINING ALCOHOL IN THE PAST YEAR?MONTHLY OR LESS (1 POINT) POINTS1 INTERPRETATIONNEGATIVE RECREATIONAL DRUG USE DRUG USE?NO DENIES 09/02/19 CAFFEINE CAFFEINE USE?NO PEPSI 3 BOTTLES A DAY SEXUAL HX HAD SEX IN THE LAST 12 MONTHS (VAGINAL, ORAL, OR ANAL)?YES WITHWOMEN ONLY PREVENTION STRATEGIES DISCUSSED:OTHER USE PROTECTION?NO HAVE YOU EVER HAD AN STD?NO HIV / HEP-C SCREENING HIV TEST OFFERED TO PATIENT:YES DATE OFFERED:05/01/2017 TEST ACCEPTED:NO REASON:PATIENT DECLINED MUSLIM [id number] ALEVISM LANGUAGE LANGUAGES SPOKEN:NORWEGIAN EDUCATION LEVEL OF EDUCATION:HIGH SCHOOL LEARNING BARRIERS / SPECIAL NEEDS CHANGE FROM LAST VISIT?NO BARRIERS TO LEARNING?NO HEARING IMPAIRED?NO VISION IMPAIRED?YES COGNITIVELY IMPAIRED?NO :CORRECTIVE LENSES READINESS TO LEARN?YES LEARNING PREFERENCES?NO LEARNING CAPABILITIES PRESENT?YES EMOTIONAL BARRIERS?NO SPECIAL DEVICES?NO ADOLESCENT COORDINATOR NEEDED?NO DOMESTIC VIOLENCE DO YOU FEEL SAFE IN YOUR ENVIRONMENT?YES OCCUPATION: UNEMPLOYED. DIET: REGULAR. EXERCISE: DAILY, WALKS. MARITAL STATUS: SINGLE. OTHERS AT HOME: CHILDREN. PAIN CLINIC PFS, CLERGY, PUBLIC HEALTH REFERRALS WAS THE PROVIDER NOTIFIED OF ANY PERTINENT INFO?YES HAS THE PATIENT BEEN EDUCATED REGARDING HIS/HER PLAN OF CARE?YES HAS THE PATIENT BEEN EDUCATED REGARDING PAIN, THE RISK FOR PAIN, THE IMPORTANCE OF EFFECTIVE PAIN MANAGEMENT, AND THE PAIN ASSESSMENT PROCESS?YES ADVANCE DIRECTIVE ADVANCE DIRECTIVE DISCUSSED WITH PATIENT:YES 09/04/2019 PT DOES NOT HAVE HCP AND DECLINES INFO AND ASSISTANCE AT THIS TIME. AD HOSPITALIZATION/MAJOR DIAGNOSTIC PROCEDURE SURIGCAL RELATED SMC CELLULITIS RIGHT GROIN WITH ABSCESS 10/06-10/09/17 REVIEW OF SYSTEMS CONSTITUTIONAL: ANY RECENT FEVER OR ILLNESS NO . ANY CHANGE IN YOUR MEDICAL CONDITION? NO . CHILLS NO . MUSCULOSKELETAL: ANY NEW PATTERNS OF PAIN OR NUMBNESS? NO . SYSTEMIC LUPUS NO . LYME DISEASE NO . GASTROENTEROLOGY: ANY NEW CHANGE IN BOWEL CONTROL? NO . BARRETTS ESOPHAGUS NO . CIRRHOSIS NO . HEPATITIS NO . LIVER FAILURE NO . NO ABDOMINAL PAIN. ACID REFLUX NO . NO ANOREXIA. NO CONSTIPATION. NO CRAMPING. NO NAUSEA. NO RECTAL BLEEDING. NO VOMITING. UNEXPLAINED WEIGHT LOSS NO . GENITOURINARY: ANY NEW CHANGE IN BLADDER CONTROL? NO . IS THERE A CHANCE YOU COULD BE ? NO . NEUROLOGY: HEAD INJURY NO . NEW ONSET DIZZINESS NO . HEADACHE NO . STROKES NO . VERTIGO NO . CARDIOLOGY: ANGINA NO . HEART ATTACK NO . HEART SURGERY NO . CONGESTIVE HEART FAILURE/FLUID OVERLOAD NO . CHEST PAIN NO . HIGH BLOOD PRESSURE NO . IRREGULAR HEART BEAT NO . RESPIRATORY: SLEEP APNEA NO . ASTHMA NO . SHORTNESS OF BREATH ON EXERTION NO . COUGH NO . WHEEZING NO . ENDOCRINOLOGY: ADRENAL GLAND DISORDER NO . THYROID DISORDER NO . VITAL SIGNS WT 202.4 LBS, HT 65 IN, BMI 33.68 INDEX, BP 130/81 MM HG, HR 89 /MIN, RR 18 /MIN, TEMP 98.0 F, OXYGEN SAT % 98%, SAFE IN ENV? (Y/N) YES, NA INITIALS AW 1323, REVIEWED BY: ADILSON. EXAMINATION GENERAL EXAMINATION: GENERALNO ACUTE DISTRESS, WELL NOURISHED AND HYDRATED. PSYCHAPPROPRIATE MOOD AND AFFECT . FACE:UNREMARKABLE. NECK:NO LYMPHADENOPATHY, SUPPLE, . LUNGS:CLEAR TO AUSCULTATION BILATERALLY, NO WHEEZES, RHONCHI, RALES. HEART:NO MURMURS, REGULAR RATE AND RHYTHM. LUMBAR: MUSCLE STRENGTH TESTING 5/5 BILATERAL LOWER EXTREMITIES , PALPATION: POSITIVE FOR PAIN OVER L/S SPINE. POSITIVE FOR PAIN OVER L/S PARSPINALS. SPECIFIC POINT TENDERNESS NOTED OVER BILATERAL LUMBAR L4-5, L5-S1 FACETS. PAIN IS AGGRAVATED IN THIS AREA WITH FACET LOADING.. ASSESSMENTS LOW BACK PAIN - M54.5 (PRIMARY) TREATMENT LOW BACK PAIN NOTES: SIGNED RECORDS RELEASE TODAY FOR IMAGING STUDIES DONE OF HIS LUMBAR SPINE OVER THE PAST 2 YEARS WAS SENT TO [facility]. PATIENT STATES HE HAD IMAGING OF HIS LUMBAR SPINE IN APRIL 2019 PER REFERRAL FROM [facility]. STATES IMAGING WAS DONE IN [place], [place]. PREVENTIVE MEDICINE PAIN CLINIC TEACHING: PROCEDURE TEACHING MAYE CESAR 09/09/2019 2:15:40 PM > LUMBAR FACET BLOCK INFIRMATION PRINTED AND REVIEWED WITH PATIENT. PATIENT VERBLAIZES UNDERSATANDING OF PROCEDURE AND OF PRE PROCEDURE INSTRUCTIONS REVIEWED. . PROCEDURE CODES [id number] ESTABILISHED PATIENT [facility] CHARGE DISPOSITION & COMMUNICATION FOLLOW UP PRE SEDATE W NANO CALABRESE L4/5-L5/S1 LFBT (REASON: SIGN RELEASE FOR [facility] FOR ANY LUMBAR IMAGING DONE IN PAST 2 YEARS) ELECTRONICALLY SIGNED BY FAM CERRATO ON 09/10/2019 AT 08:36 AM EDT DISCLAIMER : THIS IS A VISIT SUMMARY EXTRACTED FROM THE [employer] CHART. IT IS NOT A COPY OF THE [employer] PROGRESS NOTE. MARY
== END ==
LOC: M PAIN 13:30
PROVIDERS: ATTEND Nurse Practitioner Family
DX: M54.5 Low back pain (principal)

== ENCOUNTER → 2019-09-18 | Outpatient (CLI) | payer MEDICARE, MEDICAID ==
[~2019-09-18] MED LIST changes: +AIMO70IN SC; -ALLE1TAB23; +ALLE1TAB23 PO; -PROAAER10; +PROAAER10 PO; +RELP40TA PO; +VITAD1000T PO; +[UNRECOGNIZED DRUG - SUPPLY]
--- NOTE | 2019-09-20 02:43 | ECWPNPC ---
PATIENT NAME: OBED RAO : 1980 GENDER: MALE VISIT DATE: 09/18/2019 DISCHARGE DATE: 09/18/19 1530 VISIT LOCKED DATE TIME: PHYSICIAN: BROCK QUIGLEY RESOURCE: BROCK QUIGLEY REASON FOR APPOINTMENT 1. POST RIGHT GENITOFEMORAL NERVE BLOCK WITH IV SEDATION HISTORY OF PRESENT ILLNESS GENERAL: PATIENT IS AGREEABLE TO TELEMED VISIT VIA ZOOM. THIS IS A POST PROCEDURE FOLLOW-UP. HAD RIGHT GENITOFEMORAL NERVE BLOCK ON 08/21/2019. STILL HAS SIGNIFICANT REDUCTION IN PAIN POST PROCEDURE. . HE IS SCHEDULED FOR BILATERAL LUMBAR THERAPEUTIC FACET BLOCK NEXT WEEK. RATING TESTICULAR PAIN A 2/10 VAS. FINDS GABAPENTIN SOMEWHAT HELPFUL. DISCUSSED TREATMENT OPTIONS. -. FALL RISK SCREENING: SCREENING :NO FALLS REPORTED IN THE LAST YEAR PAIN SCREENING: PATIENT HAS A COMPLAINT OF ACUTE OR CHRONIC PAIN :YES 09/18/19 INTENSITY OF PAIN (SCALE OF 1 TO 10):10 WHAT DOES YOUR PAIN FEEL LIKE:ACHING, BURNING, CONTINOUS, SHARP, STABBING, THROBBING, SHOOTING PAIN IS INCREASED BY: ACTIVITY PAIN IS DECREASED BY: INJECTIONS NURSING NOTE: -. PAIN CENTER INTAKE QUESTIONS: DO YOU HAVE A HISTORY OF MRSA? :NO DO YOU TAKE A BLOOD THINNERS? :NO DO YOU HAVE ANY BLEEDING DISORDERS? :NO ANY NEW NUMBNESS OR WEAKNESS IN YOUR LEGS OR ARMS? :NO ANY PACEMAKER,DEFIBRILLATOR, OR DORSAL COLUMN STIMULATOR? :NO DO YOU HAVE ANY RASHES OR OPEN SORES? :NO ARE YOU ALLERGIC TO IV DYE? :NO ARE YOU DIABETIC? :NO ANY NEW PROBLEMS WITH YOUR MEDICATIONS? :NO HAVE YOU RECEIVED A VACCINE IN THE PAST 30 DAYS? :NO DO YOU PLAN TO RECEIVE A VACCINE IN THE NEXT 21 DAYS? :NO DO YOU NEED ANY PRESCRIPTION? :YES FABIOLA DO YOU TAKE ANY IMMUNOSUPPRESSIVE MEDICATIONS? :NO IS THERE A CHANCE YOU COULD BE ? :NO ARE YOU BREAST FEEDING? :NO CURRENT MEDICATIONS TAKING PROPRANOLOL HCL 20 MG TABLET 1 TABLET ORALLY TWICE A DAY TAKING PRIMIDONE 50 MG TABLET 1 ORALLY PO BID TAKING DEPAKOTE ER 500 MG TABLET EXTENDED RELEASE 24 HOUR 1 TABLET ORALLY THREE TIMES DAILY TAKING VITAMIN C 500 MG TABLET CHEWABLE 1 TABLET ORALLY ONCE A DAY- OTC TAKING EXCEDRIN TENSION HEADACHE 500-65 MG TABLET 2 TABLETS NEEDED ORALLY THREE TIMES A DAY TAKING OMEPRAZOLE 40 MG CAPSULE DELAYED RELEASE 1 CAPSULE ORALLY BID TAKING SIMVASTATIN 40 MG TABLET 1 TABLET IN THE EVENING ORALLY ONCE A DAY TAKING FLONASE ALLERGY RELIEF 50 MCG/ACT SUSPENSION 1 SPRAY IN EACH NOSTRIL NASALLY ONCE A DAY TAKING MONTELUKAST SODIUM 10 MG TABLET 1 TABLET ORALLY ONCE A DAY TAKING AYR SALINE NASAL NETI RINSE 1.57 GM PACKET DIRECTED NASALLY DAILY TAKING ALBUTEROL SULFATE HFA 108 (90 BASE) MCG/ACT AEROSOL SOLUTION 2 PUFFS NEEDED INHALATION EVERY 6 HRS TAKING VITAMIN D 50 MCG (2000 UT) CAPSULE 1 CAPSULE ORALLY ONCE A DAY TAKING AYANNA ALLERGY 180 MG TABLET 1 TABLET NEEDED ORALLY ONCE A DAY TAKING GABAPENTIN 100 MG CAPSULE 1 CAPSULE ORALLY FOR PAIN TID TAKING NICORETTE 4 MG GUM 1 PIECE FOR 30 MINUTE NEEDED MOUTH/THROAT 24 TIME(S) A DAY TAKING RELPAX 20 MG TABLET 1 TABLET ORALLY ONCE A DAY TAKING BOTOX 100 UNIT SOLUTION RECONSTITUTED DIRECTED INJECTION EVERY MONTH, NOTES: AUGUST 2019 NOT-TAKING NICOTROL 10 MG INHALER 1 CARTRIDGE NEEDED INHALATION 16 TIME(S) A DAY NOT-TAKING AMOXICILLIN 500 MG CAPSULE 1 CAPSULE ORALLY EVERY 12 HRS NOT-TAKING CYMBALTA 60 MG CAPSULE DELAYED RELEASE PARTICLES 1 CAPSULE ORALLY FOR PAIN DAILY NOT-TAKING HIBICLENS 4 % LIQUID DIRECTED EXTERNALLY DAILY AT PELVIC AREA NOT-TAKING CETIRIZINE HCL 10 MG TABLET 1 TABLET ORALLY ONCE A DAY NOT-TAKING ZOLMITRIPTAN 5 MG TABLET 1 TABLET NEEDED ONE TIME ORALLY ONCE A DAY NOT-TAKING SUCRALFATE 1 GM TABLET ORAL DIRECTED NOT-TAKING PERCOCET 10-325 MG TABLET 1 TABLET NEEDED ORALLY EVERY 6 HRS, NOTES: FOR SINUS SURGERY NOT-TAKING KEFLEX 500 MG CAPSULE 1 CAPSULE ORALLY EVERY 12 HRS MEDICATION LIST REVIEWED AND RECONCILED WITH THE PATIENT PAST MEDICAL HISTORY HIGH CHOLESTEROL BIPOLAR ADHD ALLERGIES ASTHMA SLEEP APNEA 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 COLONOSCOPY 03/2018: MILD NONSPECIFIC CHRONIC INFLAMMATION NOTED ON BIOPSY, NO ACTIVE COLITIS, DYSPLASIA OR GRANULOMA IDENTIFIED EGD 03/2018: MILD CHRONIC GASTRITIS NOTED ON BIOPSY, NO H-PYLORI RIANNA: MANAGED BY NEUROLOGY SCROTAL PAIN ED- FOLLOWING WITH UROLOGY CARTDINO 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 INFECTION ALLERGIES SEASONAL ALLERGIES: SNEEZING, COUGHING - ALLERGY SURGICAL HISTORY PERIANAL ABCESS X2 - DR DEMARCO ASH 10/2015 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 - MIHIR, (?REACTION TO DYE) 12/2015 R SHOULDER ROTATOR CUFF, SOS 2017 ALL UPPER TEETH EXT, TAI DENTAL, 2018 VASECTOMY- [facility]/UROLOGY, WITH SEVERE SCAR TISSUE 2018 ENDOSCOPY UPPER AND LOWER, WITH BX-[facility], ADDITIONAL TESTING 03/2018 SINUS SURGERY- POLYP FAMILY HISTORY FATHER: 80 YRS, DIAGNOSED WITH OTHER MALIGNANT NEOPLASM OF UNSPECIFIED SITE MOTHER: ALIVE 54 YRS, HYPERTENSION SIBLINGS: UNKNOWN SON(S): ALIVE DAUGHTER(S): ALIVE 1 YRS PATERNAL GRAND FATHER: UNKNOWN PATERNAL GRAND MOTHER: UNKNOWN MATERNAL GRAND FATHER: 65 YRS, HYPERTENSION, UNSPECIFIED HEART DISEASE, DIABETES MATERNAL GRAND MOTHER: 68 YRS, HYPERTENSION, UNSPECIFIED HEART DISEASE - HTN, HIGH CHOLESTEROL, ALLERGIES, ASTHMA, 1YR DAUGHTER, 1MONTH OLD SON- NO KNOWN RAGHAVENDRA ISSUES, MATERNAL GRANDPARENTS- GRANDMOTHER 65, DM, HEART, CHOLESTEROL, HTN, PARKINSONS,GRANDFATHER- 68 HEART DISEASE, HTN, NADIA CHOLESTEROL, COUGH-THROAT CLOSING-ISSUES. SOCIAL HISTORY GENERAL: TOBACCO USE ARE YOU A:FORMER SMOKER NICOTINE GUM HOW LONG HAS IT BEEN SINCE YOU LAST SMOKED?6-12 MONTHS SMOKING CESSATION INFORMATION GIVEN06/06/2019 LATEX QUESTIONNAIRE LATEX ALLERGY : HAVE YOU EVER DEVELOPED ANY TYPE OF REACTION AFTER HANDLING LATEX PRODUCTS SUCH RUBBER GLOVES, CONDOMS, DIAPHRAGMS, BALLOONS, SOCKS, OR UNDERWEAR?NO LATEX ALLERGY : HAVE YOU EVER DEVELOPED ANY TYPE OF REACTION DURING OR AFTER DENTAL APPOINTMENT, VAGINAL/RECTAL EXAMINATION, SURGICAL PROCEDURE, OR ANY OTHER EXPOSURE?NO DATE ASKED : 09/09/2019 LATEX RISK : HAVE YOU EVER HAD ANY DIFFICULTY BREATHING OR HIVES AFTER EATING OR HANDLING ANY FRUITS, OR VEGETABLES; SUCH KIWI, BANANAS, STONE FRUITS, OR CHESTNUTSNO LATEX RISK : DO YOU HAVE A PREVIOUS PERSONAL HISTORY OF MORE THAN NINE SURGERIES, SPINA BIFIDA, OR REPEATED CATHERIZATIONS? YES - PLEASE INDICATE : > 9 SURGERIES LATEX RISK : ARE YOU FREQUENTLY EXPOSED TO LATEX PRODUCTS IN YOUR OCCUPATION?NO ALCOHOL SCREENING DID YOU HAVE A DRINK CONTAINING ALCOHOL IN THE PAST YEAR?YES HOW OFTEN DID YOU HAVE SIX OR MORE DRINKS ON ONE OCCASION IN THE PAST YEAR?NEVER (0 POINTS) HOW MANY DRINKS DID YOU HAVE ON A TYPICAL DAY WHEN YOU WERE DRINKING IN THE PAST YEAR?1 OR 2 (0 POINTS) HOW OFTEN DID YOU HAVE A DRINK CONTAINING ALCOHOL IN THE PAST YEAR?MONTHLY OR LESS (1 POINT) POINTS1 INTERPRETATIONNEGATIVE RECREATIONAL DRUG USE DRUG USE?NO DENIES 09/02/19 CAFFEINE CAFFEINE USE?NO PEPSI 3 BOTTLES A DAY SEXUAL HX HAD SEX IN THE LAST 12 MONTHS (VAGINAL, ORAL, OR ANAL)?YES WITHWOMEN ONLY PREVENTION STRATEGIES DISCUSSED:OTHER USE PROTECTION?NO HAVE YOU EVER HAD AN STD?NO HIV / HEP-C SCREENING HIV TEST OFFERED TO PATIENT:YES DATE OFFERED:05/01/2017 TEST ACCEPTED:NO REASON:PATIENT DECLINED HINDUISM [id number] DENOMINATIONAL LANGUAGE LANGUAGES SPOKEN:CROATIAN EDUCATION LEVEL OF EDUCATION:HIGH SCHOOL LEARNING BARRIERS / SPECIAL NEEDS CHANGE FROM LAST VISIT?NO BARRIERS TO LEARNING?NO HEARING IMPAIRED?NO VISION IMPAIRED?YES COGNITIVELY IMPAIRED?NO :CORRECTIVE LENSES READINESS TO LEARN?YES LEARNING PREFERENCES?NO LEARNING CAPABILITIES PRESENT?YES EMOTIONAL BARRIERS?NO SPECIAL DEVICES?NO PATIENT SERVICES COORDINATOR NEEDED?NO DOMESTIC VIOLENCE DO YOU FEEL SAFE IN YOUR ENVIRONMENT?YES OCCUPATION: UNEMPLOYED. DIET: REGULAR. EXERCISE: DAILY, WALKS. MARITAL STATUS: SINGLE. OTHERS AT HOME: CHILDREN. PAIN CLINIC PFS, CLERGY, PUBLIC HEALTH REFERRALS WAS THE PROVIDER NOTIFIED OF ANY PERTINENT INFO?YES HAS THE PATIENT BEEN EDUCATED REGARDING HIS/HER PLAN OF CARE?YES HAS THE PATIENT BEEN EDUCATED REGARDING PAIN, THE RISK FOR PAIN, THE IMPORTANCE OF EFFECTIVE PAIN MANAGEMENT, AND THE PAIN ASSESSMENT PROCESS?YES ADVANCE DIRECTIVE ADVANCE DIRECTIVE DISCUSSED WITH PATIENT:YES PT DOES NOT HAVE HCP AND DECLINES INFO AND ASSISTANCE AT THIS TIME. HOSPITALIZATION/MAJOR DIAGNOSTIC PROCEDURE SURIGCAL RELATED SMC CELLULITIS RIGHT GROIN WITH ABSCESS 10/06-10/09/17 REVIEW OF SYSTEMS CONSTITUTIONAL: ANY RECENT FEVER NO . CHILLS NO . WEIGHT CHANGE OF UNKNOWN REASONS NO . GASTROENTEROLOGY: NEW UNEXPLAINABLE CHANGES IN BOWEL CONTROL NO . CONSTIPATION NO . GENITOURINARY: ANY NEW CHANGE IN BLADDER CONTROL? NO . NEUROLOGY: NEW ONSET DIZZINESS OR NEUROLOGICAL CHANGES NOT MENTIONED NO . NEW NUMBNESS OR PAIN PATTERNS NOT MENTIONED AND PERTINENT TO TODAY'S VISIT NO . CARDIOLOGY: NEW CHEST PRESSURE NO . NEW CHEST PAIN NO . RESPIRATORY: UNEXPLAINABLE COUGH NO . NEW SHORTNESS OF BREATH NO . 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 HE WAS INSTRUCTED TO TAKE TWO 100 MG CAPSULES AND TO GRADUALLY INCREASE EVERY 3 DAYS UNTIL HE REACHES 200 MG 3 TIMES A DAY. TOTAL TIME SPENT DURING ZOOM/TELE MED VISIT WAS APPROXIMATELY 12 MINUTES. DISPOSITION & COMMUNICATION FOLLOW UP POST LUMBAR /GENITOFEM BLOCK (REASON: GENITOFEM PAIN/LOW BACK PAIN) ELECTRONICALLY SIGNED BY FAM CERRATO ON 09/19/2019 AT 10:52 AM EDT DISCLAIMER : THIS IS A VISIT SUMMARY EXTRACTED FROM THE [employer] CHART. IT IS NOT A COPY OF THE [employer] PROGRESS NOTE. MARY
== END ==
LOC: M PAIN 13:15 → M TMPAIN 13:15
PROVIDERS: ATTEND Nurse Practitioner Family
DX: G58.8 Other specified mononeuropathies (principal)

== ENCOUNTER → 2019-09-21 | Outpatient (CLI) | payer MEDICARE, MEDICAID | LOC: M LABSMTC 10:10 | PROVIDERS: ATTEND Anesthesiology | DX: Z03.818 Encounter for observation for suspected exposure to other biological agents ruled out (principal); Z11.59 Encounter for screening for other viral diseases | CPT/HCPCS: C9803; U0003 ==

== ENCOUNTER → 2019-09-23 | Outpatient (CLI) | payer MEDICARE, MEDICAID ==
--- NOTE | 2019-10-02 01:53 | ECWPNPC ---
PATIENT NAME: OBED RAO : 1980 GENDER: MALE VISIT DATE: 09/23/2019 DISCHARGE DATE: 09/23/19 1603 VISIT LOCKED DATE TIME: PHYSICIAN: ANGELINA HERNANDEZ MD RESOURCE: ANGELINA HERNANDEZ MD REASON FOR APPOINTMENT 1. PRE SEDATE HISTORY OF PRESENT ILLNESS GENERAL: 39-YEAR-OLD MALE PATIENT WITH A HISTORY OF CHRONIC LOW BACK PAIN. THE PATIENT DESCRIBES THE PAIN ACHING AND BURNING WITH A PAIN SCORE RANGING FROM 6-10/10 DEPENDING ON PHYSICAL ACTIVITY. PATIENT DENIES UNEXPLAINABLE WEIGHT LOSS, FEVER, CHILLS, NEW CHANGES ON HIS URINARY OR BOWEL CONTROL. FALL RISK SCREENING: SCREENING :NO FALLS REPORTED IN THE LAST YEAR PAIN SCREENING: PATIENT HAS A COMPLAINT OF ACUTE OR CHRONIC PAIN :YES LOCATION OF PAIN:LOW BACK INTENSITY OF PAIN (SCALE OF 1 TO 10):10 WHAT DOES YOUR PAIN FEEL LIKE:ACHING, BURNING, CONTINOUS, THROBBING PAIN IS INCREASED BY:ACTIVITIES, PROLONGED STANDING RIDING IN A CAR, SITTING PAIN IS DECREASED BY: NOTHING NURSING NOTE: -. PAIN CENTER INTAKE QUESTIONS: DO YOU HAVE A HISTORY OF MRSA? :NO DO YOU TAKE A BLOOD THINNERS? :NO DO YOU HAVE ANY BLEEDING DISORDERS? :NO ANY NEW NUMBNESS OR WEAKNESS IN YOUR LEGS OR ARMS? :NO ANY PACEMAKER,DEFIBRILLATOR, OR DORSAL COLUMN STIMULATOR? :NO DO YOU HAVE ANY RASHES OR OPEN SORES? :NO ARE YOU ALLERGIC TO IV DYE? :NO ARE YOU DIABETIC? :NO ANY NEW PROBLEMS WITH YOUR MEDICATIONS? :NO HAVE YOU RECEIVED A VACCINE IN THE PAST 30 DAYS? :NO DO YOU PLAN TO RECEIVE A VACCINE IN THE NEXT 21 DAYS? :NO DO YOU NEED ANY PRESCRIPTION? :NO DO YOU TAKE ANY IMMUNOSUPPRESSIVE MEDICATIONS? :NO IS THERE A CHANCE YOU COULD BE ? :NO ARE YOU BREAST FEEDING? :NO CURRENT MEDICATIONS TAKING PROPRANOLOL HCL 20 MG TABLET 1 TABLET ORALLY TWICE A DAY TAKING PRIMIDONE 50 MG TABLET 1 ORALLY PO BID TAKING DEPAKOTE ER 500 MG TABLET EXTENDED RELEASE 24 HOUR 1 TABLET ORALLY THREE TIMES DAILY TAKING VITAMIN C 500 MG TABLET CHEWABLE 1 TABLET ORALLY ONCE A DAY- OTC TAKING EXCEDRIN TENSION HEADACHE 500-65 MG TABLET 2 TABLETS NEEDED ORALLY THREE TIMES A DAY TAKING OMEPRAZOLE 40 MG CAPSULE DELAYED RELEASE 1 CAPSULE ORALLY BID TAKING SIMVASTATIN 40 MG TABLET 1 TABLET IN THE EVENING ORALLY ONCE A DAY TAKING FLONASE ALLERGY RELIEF 50 MCG/ACT SUSPENSION 1 SPRAY IN EACH NOSTRIL NASALLY ONCE A DAY TAKING MONTELUKAST SODIUM 10 MG TABLET 1 TABLET ORALLY ONCE A DAY TAKING AYR SALINE NASAL NETI RINSE 1.57 GM PACKET DIRECTED NASALLY DAILY TAKING ALBUTEROL SULFATE HFA 108 (90 BASE) MCG/ACT AEROSOL SOLUTION 2 PUFFS NEEDED INHALATION EVERY 6 HRS TAKING VITAMIN D 50 MCG (2000 UT) CAPSULE 1 CAPSULE ORALLY ONCE A DAY TAKING AYANNA ALLERGY 180 MG TABLET 1 TABLET NEEDED ORALLY ONCE A DAY TAKING NICORETTE 4 MG GUM 1 PIECE FOR 30 MINUTE NEEDED MOUTH/THROAT 24 TIME(S) A DAY TAKING RELPAX 20 MG TABLET 1 TABLET ORALLY ONCE A DAY TAKING BOTOX 100 UNIT SOLUTION RECONSTITUTED DIRECTED INJECTION EVERY MONTH, NOTES: AUGUST 2019 TAKING GABAPENTIN 100 MG CAPSULE 2 CAP ORALLY FOR PAIN TID NOT-TAKING NICOTROL 10 MG INHALER 1 CARTRIDGE NEEDED INHALATION 16 TIME(S) A DAY NOT-TAKING AMOXICILLIN 500 MG CAPSULE 1 CAPSULE ORALLY EVERY 12 HRS NOT-TAKING CYMBALTA 60 MG CAPSULE DELAYED RELEASE PARTICLES 1 CAPSULE ORALLY FOR PAIN DAILY NOT-TAKING HIBICLENS 4 % LIQUID DIRECTED EXTERNALLY DAILY AT PELVIC AREA NOT-TAKING CETIRIZINE HCL 10 MG TABLET 1 TABLET ORALLY ONCE A DAY NOT-TAKING ZOLMITRIPTAN 5 MG TABLET 1 TABLET NEEDED ONE TIME ORALLY ONCE A DAY NOT-TAKING SUCRALFATE 1 GM TABLET ORAL DIRECTED NOT-TAKING PERCOCET 10-325 MG TABLET 1 TABLET NEEDED ORALLY EVERY 6 HRS, NOTES: FOR SINUS SURGERY NOT-TAKING KEFLEX 500 MG CAPSULE 1 CAPSULE ORALLY EVERY 12 HRS MEDICATION LIST REVIEWED AND RECONCILED WITH THE PATIENT PAST MEDICAL HISTORY HIGH CHOLESTEROL BIPOLAR ADHD ALLERGIES ASTHMA SLEEP APNEA 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 COLONOSCOPY 03/2018: MILD NONSPECIFIC CHRONIC INFLAMMATION NOTED ON BIOPSY, NO ACTIVE COLITIS, DYSPLASIA OR GRANULOMA IDENTIFIED EGD 03/2018: MILD CHRONIC GASTRITIS NOTED ON BIOPSY, NO H-PYLORI RIANNA: MANAGED BY NEUROLOGY SCROTAL PAIN ED- FOLLOWING WITH UROLOGY CARTJULIANNA VARICOSE VIENS TESTICLES- UROLOGY CARTGE TREMORS SINUS INFECTION ALLERGIES SEASONAL ALLERGIES: SNEEZING, COUGHING - ALLERGY SURGICAL HISTORY PERIANAL ABCESS X2 - MIHIR, DR DEMARCO SCHAFER 10/2015 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 - MIHIR, (?REACTION TO DYE) 12/2015 R SHOULDER ROTATOR CUFF, SOS 2017 ALL UPPER TEETH EXT, TAI DENTAL, 2018 VASECTOMY- [facility]/UROLOGY, WITH SEVERE SCAR TISSUE 2018 ENDOSCOPY UPPER AND LOWER, WITH BX-[facility], ADDITIONAL TESTING 03/2018 SINUS SURGERY- POLYP FAMILY HISTORY FATHER: 80 YRS, DIAGNOSED WITH OTHER MALIGNANT NEOPLASM OF UNSPECIFIED SITE MOTHER: ALIVE 54 YRS, HYPERTENSION SIBLINGS: UNKNOWN SON(S): ALIVE DAUGHTER(S): ALIVE 1 YRS PATERNAL GRAND FATHER: UNKNOWN PATERNAL GRAND MOTHER: UNKNOWN MATERNAL GRAND FATHER: 65 YRS, HYPERTENSION, UNSPECIFIED HEART DISEASE, DIABETES MATERNAL GRAND MOTHER: 68 YRS, HYPERTENSION, UNSPECIFIED HEART DISEASE - HTN, HIGH CHOLESTEROL, ALLERGIES, ASTHMA, 1YR DAUGHTER, 1MONTH OLD SON- NO KNOWN RAGHAVENDRA ISSUES, MATERNAL GRANDPARENTS- GRANDMOTHER 65, DM, HEART, CHOLESTEROL, HTN, PARKINSONS,GRANDFATHER- 68 HEART DISEASE, HTN, NADIA CHOLESTEROL, COUGH-THROAT CLOSING-ISSUES. SOCIAL HISTORY GENERAL: TOBACCO USE ARE YOU A:FORMER SMOKER NICOTINE GUM HOW LONG HAS IT BEEN SINCE YOU LAST SMOKED?6-12 MONTHS SMOKING CESSATION INFORMATION GIVEN06/06/2019 LATEX QUESTIONNAIRE LATEX ALLERGY : HAVE YOU EVER DEVELOPED ANY TYPE OF REACTION AFTER HANDLING LATEX PRODUCTS SUCH RUBBER GLOVES, CONDOMS, DIAPHRAGMS, BALLOONS, SOCKS, OR UNDERWEAR?NO LATEX ALLERGY : HAVE YOU EVER DEVELOPED ANY TYPE OF REACTION DURING OR AFTER DENTAL APPOINTMENT, VAGINAL/RECTAL EXAMINATION, SURGICAL PROCEDURE, OR ANY OTHER EXPOSURE?NO DATE ASKED : 09/09/2019 LATEX RISK : HAVE YOU EVER HAD ANY DIFFICULTY BREATHING OR HIVES AFTER EATING OR HANDLING ANY FRUITS, OR VEGETABLES; SUCH KIWI, BANANAS, STONE FRUITS, OR CHESTNUTSNO LATEX RISK : DO YOU HAVE A PREVIOUS PERSONAL HISTORY OF MORE THAN NINE SURGERIES, SPINA BIFIDA, OR REPEATED CATHERIZATIONS? YES - PLEASE INDICATE : > 9 SURGERIES LATEX RISK : ARE YOU FREQUENTLY EXPOSED TO LATEX PRODUCTS IN YOUR OCCUPATION?NO ALCOHOL SCREENING DID YOU HAVE A DRINK CONTAINING ALCOHOL IN THE PAST YEAR?YES HOW OFTEN DID YOU HAVE SIX OR MORE DRINKS ON ONE OCCASION IN THE PAST YEAR?NEVER (0 POINTS) HOW MANY DRINKS DID YOU HAVE ON A TYPICAL DAY WHEN YOU WERE DRINKING IN THE PAST YEAR?1 OR 2 (0 POINTS) HOW OFTEN DID YOU HAVE A DRINK CONTAINING ALCOHOL IN THE PAST YEAR?MONTHLY OR LESS (1 POINT) POINTS1 INTERPRETATIONNEGATIVE RECREATIONAL DRUG USE DRUG USE?NO DENIES 09/02/19 CAFFEINE CAFFEINE USE?NO PEPSI 3 BOTTLES A DAY SEXUAL HX HAD SEX IN THE LAST 12 MONTHS (VAGINAL, ORAL, OR ANAL)?YES WITHWOMEN ONLY PREVENTION STRATEGIES DISCUSSED:OTHER USE PROTECTION?NO HAVE YOU EVER HAD AN STD?NO HIV / HEP-C SCREENING HIV TEST OFFERED TO PATIENT:YES DATE OFFERED:05/01/2017 TEST ACCEPTED:NO REASON:PATIENT DECLINED ROMAN [employer]IC [id number] [employer] LANGUAGE LANGUAGES SPOKEN:UKRAINIAN EDUCATION LEVEL OF EDUCATION:HIGH SCHOOL LEARNING BARRIERS / SPECIAL NEEDS CHANGE FROM LAST VISIT?NO BARRIERS TO LEARNING?NO HEARING IMPAIRED?NO VISION IMPAIRED?YES :CORRECTIVE LENSES COGNITIVELY IMPAIRED?NO READINESS TO LEARN?YES LEARNING PREFERENCES?NO LEARNING CAPABILITIES PRESENT?YES EMOTIONAL BARRIERS?NO SPECIAL DEVICES?NO WEB ANALYTICS DEVELOPER NEEDED?NO DOMESTIC VIOLENCE DO YOU FEEL SAFE IN YOUR ENVIRONMENT?YES OCCUPATION: UNEMPLOYED. DIET: REGULAR. EXERCISE: DAILY, WALKS. MARITAL STATUS: SINGLE. OTHERS AT HOME: CHILDREN. PAIN CLINIC PFS, CLERGY, PUBLIC HEALTH REFERRALS WAS THE PROVIDER NOTIFIED OF ANY PERTINENT INFO?YES HAS THE PATIENT BEEN EDUCATED REGARDING HIS/HER PLAN OF CARE?YES HAS THE PATIENT BEEN EDUCATED REGARDING PAIN, THE RISK FOR PAIN, THE IMPORTANCE OF EFFECTIVE PAIN MANAGEMENT, AND THE PAIN ASSESSMENT PROCESS?YES ADVANCE DIRECTIVE ADVANCE DIRECTIVE DISCUSSED WITH PATIENT:YES PT DOES NOT HAVE HCP AND DECLINES INFO AND ASSISTANCE AT THIS TIME. HOSPITALIZATION/MAJOR DIAGNOSTIC PROCEDURE SURIGCAL RELATED SMC CELLULITIS RIGHT GROIN WITH ABSCESS 10/06-10/09/17 REVIEW OF SYSTEMS GLAUCOMA: NO THYROID DISEASE: NOHYPERTENSION: NOHEART DISEASE: NOLUNG DISEASE: NODIABETES: NOGI DISEASE: NO LIVER DISEASE: NO KIDNEY DISEASE: NOSTERIOD USE: NONEUROLOGICAL DISEASE: NOBACK PROBLEMS: YES, PAIN IN BACKEXTREMITIES: YES, PAIN AND WEAKNESS IN LEGSGENITOURINARY: NOBLEEDING DISORDER: NOASA CLASS: [id number] CLASS: II. VITAL SIGNS WT 202.4 LBS, HT 65 IN, BMI 33.68 INDEX, BP 135/75 MM HG, HR 92 /MIN, RR 20 /MIN, TEMP 98.8 F, OXYGEN SAT % 96%, NA INITIALS SC 14:47, REVIEWED BY: RAYMUNDO. EXAMINATION GENERAL: THE PATIENT IS ALERT, ORIENTED TIMES THREE AND COOPERATIVE. HEART SHOWS REGULAR RHYTHM, NO MURMURS AND NO GALLOPS. LUNGS ARE CLEAR TO AUSCULTATION. THERE IS TENDERNESS IN THE BACK WITH EXTENTION AND LATERAL ROATION. MRI OF THE LUMBOSACRAL SPINE DATED 03/09/2016 SHOWS FACET ARTHOPATHY CHANGES. ASSESSMENTS SPONDYLOSIS WITHOUT MYELOPATHY OR RADICULOPATHY, LUMBAR REGION - M47.816 (PRIMARY) SPONDYLOSIS WITHOUT MYELOPATHY OR RADICULOPATHY, LUMBOSACRAL REGION - M47.817 TREATMENT OTHERS CLINICAL NOTES: WE DISCUSSED SEVERAL ALTERNATIVES WITH MR. RAO REGARDING HIS TREATMENT OPTIONS AND CARE. WE AGREE ON DOING BILATERAL THERAPEUTIC FACET BLOCK WITH IV SEDATION DUE TO ANXIETY AND DISCOMFORT ASSOCIATED WITH THE PROCEDURE. THE UNDERSTANDS AND IS IN AGREEMENT WITH THE TREATMENT PLAN. I, JNAET LOPEZ, DOCUMENTED THE ABOVE INFORMATION ACTING A SCRIBE FOR DR. HERNANDEZ. I HAVE REVIEWED THE ABOVE DOCUMENT, WRITTEN BY JANET LOPEZ, SHOESHINER, AND I VERIFY THAT IT IS ACCURATE. PROCEDURE CODES [id number] OFFICE/OUTPATIENT VISIT EST DISPOSITION & COMMUNICATION FOLLOW UP LFBT (REASON: LFBT WITH IV SED) ELECTRONICALLY SIGNED BY ANGELINA HERNANDEZ MD, MD ON 10/01/2019 AT 06:10 PM EDT DISCLAIMER : THIS IS A VISIT SUMMARY EXTRACTED FROM THE [employer] CHART. IT IS NOT A COPY OF THE [employer] PROGRESS NOTE. SHARLAD
== END ==
LOC: M PAIN 14:45
PROVIDERS: ATTEND Anesthesiology
DX: M47.816 Spondylosis without myelopathy or radiculopathy, lumbar region (principal); M47.817 Spondylosis without myelopathy or radiculopathy, lumbosacral region

== ENCOUNTER → 2019-09-24 | Outpatient (CLI) | payer MEDICARE, MEDICAID ==
[~2019-09-24] MED LIST changes: +BUPIVACAINE HCL 0.25% 30ML VIAL As Ordered ONE; +ISOVUE-M 300 61% 15ML VIAL As Ordered ONE; +LIDOCAINE 1% SDV 30ML VIAL As Ordered ONE; +MIDAZOLAM INJ 2MG/2ML VIAL (J2250 PER 1MG) As Ordered ONE; +TRIAMCINOLONE ACETONIDE SUSP 40 MG/ML VIAL (J3301) As Ordered ONE; +fentaNYL 100 MCG/2 ML INJECTION (J3010) As Ordered ONE
--- NOTE | 2019-09-24 11:30 | REP ---
Partial lumbar spine series: Two views . History: Injection procedure for pain. 36 seconds of fluoroscopy time is reported. Findings: A sequence of two fluoroscopically obtained last image hold procedural spot radiographs of the lumbar spine document needle position and contrast injection associated with injection procedure. Electronically Signed by Dimas Chinchilla MD 09/24/2019 11:22 A
--- NOTE | 2019-09-25 01:16 | ECWPNPC ---
PATIENT NAME: OBED RAO : 1980 GENDER: MALE VISIT DATE: 09/24/2019 DISCHARGE DATE: 09/24/19 1130 VISIT LOCKED DATE TIME: PHYSICIAN: ANGELINA HERNANDEZ MD RESOURCE: ANGELINA HERNANDEZ MD REASON FOR APPOINTMENT 1. BILATERAL L4/L5, L5/S1 THERAPUETIC LUMBAR FACET BLOCK WTH IV SEDATION PAT COMPLETED HISTORY OF PRESENT ILLNESS GENERAL: -. FALL RISK SCREENING: SCREENING :NO FALLS REPORTED IN THE LAST YEAR PAIN SCREENING: PATIENT HAS A COMPLAINT OF ACUTE OR CHRONIC PAIN :YES LOCATION OF PAIN:LOW BACK INTENSITY OF PAIN (SCALE OF 1 TO 10):10 WHAT DOES YOUR PAIN FEEL LIKE:ACHING, BURNING, CONTINOUS, THROBBING DURATION:CONSTANT PAIN IS INCREASED BY:ACTIVITIES, PROLONGED STANDING RIDING IN CAR, PROLONGED SITTING NURSING NOTE: -. PAIN CENTER INTAKE QUESTIONS: DO YOU HAVE A HISTORY OF MRSA? :NO DO YOU TAKE A BLOOD THINNERS? :NO DO YOU HAVE ANY BLEEDING DISORDERS? :NO ANY NEW NUMBNESS OR WEAKNESS IN YOUR LEGS OR ARMS? :NO ANY PACEMAKER,DEFIBRILLATOR, OR DORSAL COLUMN STIMULATOR? :NO DO YOU HAVE ANY RASHES OR OPEN SORES? :NO ARE YOU ALLERGIC TO IV DYE? :NO ARE YOU DIABETIC? :NO ANY NEW PROBLEMS WITH YOUR MEDICATIONS? :NO HAVE YOU RECEIVED A VACCINE IN THE PAST 30 DAYS? :NO DO YOU PLAN TO RECEIVE A VACCINE IN THE NEXT 21 DAYS? :NO DO YOU TAKE ANY IMMUNOSUPPRESSIVE MEDICATIONS? :NO ANY HISTORY OF SEIZURES? :NO ANY HISTORY OF CARDIAC ISSUES OR EVENTS? :NO DO YOU HAVE SLEEP APNEA? :NO ANY RECENT HEAD INJURY? :NO DO YOU HAVE ANY NEW INFECTIONS? :NO IS THERE A CHANCE YOU COULD BE ? :NO ARE YOU BREAST FEEDING? :NO WHEN DID YOU LAST EAT? : - WHEN DID YOU LAST DRINK? : - WHAT DID YOU LAST DRINK? : - NAME OF PERSON DRIVING YOU HOME? : MOM-MISTY DO YOU HAVE ANY OTHER QUESTIONS OR CONCERNS? : - CURRENT MEDICATIONS TAKING PROPRANOLOL HCL 20 MG TABLET 1 TABLET ORALLY TWICE A DAY, NOTES: 09/22 2099 TAKING PRIMIDONE 50 MG TABLET 1 ORALLY PO BID, NOTES: 09/22 2099 TAKING DEPAKOTE ER 500 MG TABLET EXTENDED RELEASE 24 HOUR 1 TABLET ORALLY THREE TIMES DAILY, NOTES: 09/22 2099 TAKING VITAMIN C 500 MG TABLET CHEWABLE 1 TABLET ORALLY ONCE A DAY- OTC, NOTES: 09/22 2099 TAKING EXCEDRIN TENSION HEADACHE 500-65 MG TABLET 2 TABLETS NEEDED ORALLY THREE TIMES A DAY, NOTES: 2 WEEKS AGO TAKING OMEPRAZOLE 40 MG CAPSULE DELAYED RELEASE 1 CAPSULE ORALLY BID, NOTES: 09/22 2099 TAKING SIMVASTATIN 40 MG TABLET 1 TABLET IN THE EVENING ORALLY ONCE A DAY, NOTES: 09/22 2099 TAKING FLONASE ALLERGY RELIEF 50 MCG/ACT SUSPENSION 1 SPRAY IN EACH NOSTRIL NASALLY ONCE A DAY, NOTES: 09/22 2099 TAKING MONTELUKAST SODIUM 10 MG TABLET 1 TABLET ORALLY ONCE A DAY, NOTES: 09/22 2099 TAKING AYR SALINE NASAL NETI RINSE 1.57 GM PACKET DIRECTED NASALLY DAILY, NOTES: 09/22 2099 TAKING ALBUTEROL SULFATE HFA 108 (90 BASE) MCG/ACT AEROSOL SOLUTION 2 PUFFS NEEDED INHALATION EVERY 6 HRS, NOTES: NONE RECENT TAKING VITAMIN D 50 MCG (1999 UT) CAPSULE 1 CAPSULE ORALLY ONCE A DAY, NOTES: 09/22 2099 TAKING AYANNA ALLERGY 180 MG TABLET 1 TABLET NEEDED ORALLY ONCE A DAY, NOTES: 09/22 2099 TAKING NICORETTE 4 MG GUM 1 PIECE FOR 30 MINUTE NEEDED MOUTH/THROAT 24 TIME(S) A DAY, NOTES: 09/22 2099 TAKING RELPAX 20 MG TABLET 1 TABLET ORALLY ONCE A DAY, NOTES: 09/19 TAKING BOTOX 100 UNIT SOLUTION RECONSTITUTED DIRECTED INJECTION EVERY MONTH, NOTES: AUGUST 2019 TAKING GABAPENTIN 100 MG CAPSULE 2 CAP ORALLY FOR PAIN TID, NOTES: 09/22 2099 NOT-TAKING NICOTROL 10 MG INHALER 1 CARTRIDGE NEEDED INHALATION 16 TIME(S) A DAY NOT-TAKING AMOXICILLIN 500 MG CAPSULE 1 CAPSULE ORALLY EVERY 12 HRS NOT-TAKING CYMBALTA 60 MG CAPSULE DELAYED RELEASE PARTICLES 1 CAPSULE ORALLY FOR PAIN DAILY NOT-TAKING HIBICLENS 4 % LIQUID DIRECTED EXTERNALLY DAILY AT PELVIC AREA NOT-TAKING CETIRIZINE HCL 10 MG TABLET 1 TABLET ORALLY ONCE A DAY NOT-TAKING ZOLMITRIPTAN 5 MG TABLET 1 TABLET NEEDED ONE TIME ORALLY ONCE A DAY NOT-TAKING SUCRALFATE 1 GM TABLET ORAL DIRECTED NOT-TAKING PERCOCET 10-325 MG TABLET 1 TABLET NEEDED ORALLY EVERY 6 HRS, NOTES: FOR SINUS SURGERY NOT-TAKING KEFLEX 500 MG CAPSULE 1 CAPSULE ORALLY EVERY 12 HRS MEDICATION LIST REVIEWED AND RECONCILED WITH THE PATIENT PAST MEDICAL HISTORY HIGH CHOLESTEROL BIPOLAR ADHD ALLERGIES ASTHMA SLEEP APNEA 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 COLONOSCOPY 03/2018: MILD NONSPECIFIC CHRONIC INFLAMMATION NOTED ON BIOPSY, NO ACTIVE COLITIS, DYSPLASIA OR GRANULOMA IDENTIFIED EGD 03/2018: MILD CHRONIC GASTRITIS NOTED ON BIOPSY, NO H-PYLORI RIANNA: MANAGED BY NEUROLOGY SCROTAL PAIN ED- FOLLOWING WITH UROLOGY CARTHAGE 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 INFECTION ALLERGIES SEASONAL ALLERGIES: SNEEZING, COUGHING - ALLERGY SURGICAL HISTORY PERIANAL ABCESS X2 - MIHIR, DR DEMARCO SCHAFER 10/2015 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 - MIHIR, (?REACTION TO DYE) 12/2015 R SHOULDER ROTATOR CUFF, SOS 2017 ALL UPPER TEETH EXT, TAI DENTAL, 2018 VASECTOMY- [facility]/UROLOGY, WITH SEVERE SCAR TISSUE 2018 ENDOSCOPY UPPER AND LOWER, WITH BX-[facility], ADDITIONAL TESTING 03/2018 SINUS SURGERY- POLYP FAMILY HISTORY FATHER: 80 YRS, DIAGNOSED WITH OTHER MALIGNANT NEOPLASM OF UNSPECIFIED SITE MOTHER: ALIVE 54 YRS, HYPERTENSION SIBLINGS: UNKNOWN SON(S): ALIVE DAUGHTER(S): ALIVE 1 YRS PATERNAL GRAND FATHER: UNKNOWN PATERNAL GRAND MOTHER: UNKNOWN MATERNAL GRAND FATHER: 65 YRS, HYPERTENSION, UNSPECIFIED HEART DISEASE, DIABETES MATERNAL GRAND MOTHER: 68 YRS, HYPERTENSION, UNSPECIFIED HEART DISEASE - HTN, HIGH CHOLESTEROL, ALLERGIES, ASTHMA, 1YR DAUGHTER, 1MONTH OLD SON- NO KNOWN RAGHAVENDRA ISSUES, MATERNAL GRANDPARENTS- GRANDMOTHER 65, DM, HEART, CHOLESTEROL, HTN, PARKINSONS,GRANDFATHER- 68 HEART DISEASE, HTN, NADIA CHOLESTEROL, COUGH-THROAT CLOSING-ISSUES. SOCIAL HISTORY GENERAL: TOBACCO USE ARE YOU A:FORMER SMOKER NICOTINE GUM HOW LONG HAS IT BEEN SINCE YOU LAST SMOKED?6-12 MONTHS SMOKING CESSATION INFORMATION GIVEN06/06/2019 LATEX QUESTIONNAIRE LATEX ALLERGY : HAVE YOU EVER DEVELOPED ANY TYPE OF REACTION AFTER HANDLING LATEX PRODUCTS SUCH RUBBER GLOVES, CONDOMS, DIAPHRAGMS, BALLOONS, SOCKS, OR UNDERWEAR?NO LATEX ALLERGY : HAVE YOU EVER DEVELOPED ANY TYPE OF REACTION DURING OR AFTER DENTAL APPOINTMENT, VAGINAL/RECTAL EXAMINATION, SURGICAL PROCEDURE, OR ANY OTHER EXPOSURE?NO DATE ASKED : 09/09/2019 LATEX RISK : HAVE YOU EVER HAD ANY DIFFICULTY BREATHING OR HIVES AFTER EATING OR HANDLING ANY FRUITS, OR VEGETABLES; SUCH KIWI, BANANAS, STONE FRUITS, OR CHESTNUTSNO LATEX RISK : DO YOU HAVE A PREVIOUS PERSONAL HISTORY OF MORE THAN NINE SURGERIES, SPINA BIFIDA, OR REPEATED CATHERIZATIONS? YES - PLEASE INDICATE : > 9 SURGERIES LATEX RISK : ARE YOU FREQUENTLY EXPOSED TO LATEX PRODUCTS IN YOUR OCCUPATION?NO ALCOHOL SCREENING DID YOU HAVE A DRINK CONTAINING ALCOHOL IN THE PAST YEAR?YES HOW OFTEN DID YOU HAVE SIX OR MORE DRINKS ON ONE OCCASION IN THE PAST YEAR?NEVER (0 POINTS) HOW MANY DRINKS DID YOU HAVE ON A TYPICAL DAY WHEN YOU WERE DRINKING IN THE PAST YEAR?1 OR 2 (0 POINTS) HOW OFTEN DID YOU HAVE A DRINK CONTAINING ALCOHOL IN THE PAST YEAR?MONTHLY OR LESS (1 POINT) POINTS1 INTERPRETATIONNEGATIVE RECREATIONAL DRUG USE DRUG USE?NO DENIES 09/02/19 CAFFEINE CAFFEINE USE?NO PEPSI 3 BOTTLES A DAY SEXUAL HX HAD SEX IN THE LAST 12 MONTHS (VAGINAL, ORAL, OR ANAL)?YES WITHWOMEN ONLY PREVENTION STRATEGIES DISCUSSED:OTHER USE PROTECTION?NO HAVE YOU EVER HAD AN STD?NO HIV / HEP-C SCREENING HIV TEST OFFERED TO PATIENT:YES DATE OFFERED:05/01/2017 TEST ACCEPTED:NO REASON:PATIENT DECLINED ANGLICAN [id number] JAINISM LANGUAGE LANGUAGES SPOKEN:BELARUSIAN EDUCATION LEVEL OF EDUCATION:HIGH SCHOOL LEARNING BARRIERS / SPECIAL NEEDS CHANGE FROM LAST VISIT?NO BARRIERS TO LEARNING?NO HEARING IMPAIRED?NO VISION IMPAIRED?YES COGNITIVELY IMPAIRED?NO :CORRECTIVE LENSES READINESS TO LEARN?YES LEARNING PREFERENCES?NO LEARNING CAPABILITIES PRESENT?YES EMOTIONAL BARRIERS?NO SPECIAL DEVICES?NO PARADI TENDER NEEDED?NO DOMESTIC VIOLENCE DO YOU FEEL SAFE IN YOUR ENVIRONMENT?YES OCCUPATION: UNEMPLOYED. DIET: REGULAR. EXERCISE: DAILY, WALKS. MARITAL STATUS: SINGLE. OTHERS AT HOME: CHILDREN. PAIN CLINIC PFS, CLERGY, PUBLIC HEALTH REFERRALS WAS THE PROVIDER NOTIFIED OF ANY PERTINENT INFO?YES HAS THE PATIENT BEEN EDUCATED REGARDING HIS/HER PLAN OF CARE?YES HAS THE PATIENT BEEN EDUCATED REGARDING PAIN, THE RISK FOR PAIN, THE IMPORTANCE OF EFFECTIVE PAIN MANAGEMENT, AND THE PAIN ASSESSMENT PROCESS?YES ADVANCE DIRECTIVE ADVANCE DIRECTIVE DISCUSSED WITH PATIENT:YES PT DOES NOT HAVE HCP AND DECLINES INFO AND ASSISTANCE AT THIS TIME. HOSPITALIZATION/MAJOR DIAGNOSTIC PROCEDURE SURIGCAL RELATED SMC CELLULITIS RIGHT GROIN WITH ABSCESS 10/06-10/09/17 VITAL SIGNS WT 202.4 LBS, HT 65 IN, BMI 33.68 INDEX, BP 138/82 MM HG, HR 77 /MIN, RR 20 /MIN, TEMP 97.6 F, OXYGEN SAT % 96%, SAFE IN ENV? (Y/N) Y, NA INITIALS SC 09:25, REVIEWED BY: AIDEN. EXAMINATION GENERAL EXAMINATION: THE PATIENT IS ALERT, ORIENTED TIMES THREE AND COOPERATIVE. HEART SHOWS REGULAR RHYTHM, NO MURMURS AND NO GALLOPS. LUNGS ARE CLEAR TO AUSCULTATION. ASSESSMENTS SPONDYLOSIS WITHOUT MYELOPATHY OR RADICULOPATHY, LUMBAR REGION - M47.816 (PRIMARY) SPONDYLOSIS WITHOUT MYELOPATHY OR RADICULOPATHY, LUMBOSACRAL REGION - M47.817 TREATMENT SPONDYLOSIS WITHOUT MYELOPATHY OR RADICULOPATHY, LUMBAR REGION SMC FACET BLOCK (PAIN)[id number] MEDICATION: FENTANYL CITRATE 25MCG IV CONNIE KENNY 09/24/2019 10:51:24 AM > VERIFIED JANET LOPEZ 09/24/2019 10:57:21 AM - SECOND DOSE ORDERED, VERIFIED WITH JANET LEAL 09/24/2019 11:00:15 AM - THIRD DOSE ORDERED, VERIFIED WITH JANET LEAL 09/24/2019 11:00:30 AM - FOURTH DOSE ORDERED, VERIFIED WITH GIACOMO BOCANEGRA RN 09/24/2019 11:24:03 AM > LOT# [id number], EXP 09/24/2020, 1ST DOSE FENTANYL 25MCG ADMINISTERED AT 1057 BY JAYDA RN, 2ND DOSE FENTANYL 25MCG ADMINISTERED AT 1058 BY JAYDA RN, 3RD DOSE FENTANYL 25 MCG ADMINISTERED AT 1100 BY JAYDA RN, 4TH DOSE FENTANYL 25 MCG ADMINISTERED AT 1101 BY JAYDA ASPHALT PLANT OPERATOR: VERSED 1MG IV (MIDAZOLAM)CONNIE KENNY 09/24/2019 10:51:48 AM > VERIFIED JANET LOPEZ 09/24/2019 10:58:46 AM - SECOND DOSE ORDERED, VERIFIED BY GIACOMO BOCANEGRA RN 09/24/2019 11:27:31 AM > LOT# [id number], EXP 10/2020, 1ST DOSE VERSED 1MG ADMINISTERED AT 1055 BY JAYDA SHERMAN, 2ND DOSE VERSED 1MG ADMINISTERED AT 1059 BY JAYDA RN OXYGEN AT 2 LITERS PER NASAL CANNULADECONNIE NARAYANAN 09/24/2019 11:36:54 AM > APPLIED PRIOR TO CONSCIOUS SEDATION IV WIDE OPENDILEJANET TRUONG 09/24/2019 09:29:45 AM - LACTATED RINGERS CONNIE KENNY 09/24/2019 9:48:51 AM > IV STARTED WITH #20 IN RIGHTH HAND ON 1ST ATTEMPT WITHOUT INCIDENT. IV INFUSING WIDE OPEN WITHOUT REDNESS, SWELLING OR DRAINAGE. PT. TOLERATED PROCEDURE WELL. JANET LOPEZ 09/24/2019 11:09:27 AM - 600 ML CLINICAL NOTES: A HISTORY AND PHYSICAL EXAM ON THIS PATIENT WAS DONE ON 09/23/2019 IN PREPARATION OF SURGERY/PROCEDURE. I HAVE NOW REASSESSED THIS PATIENT'S HEALTH STATUS AND PERFORMED AN UPDATED EXAM TODAY, 09/24/2019, WHICH IS WITHIN 24 HOURS PRIOR TO SURGERY/PROCEDURE. ALL CHANGES IN THE PATIENT'S HISTORY, PHYSICAL EXAM, PRE-EXISTING CONDITIONS, AND INDICATIONS/CONTRAINDICATIONS TO THE PLANNED PROCEDURE AND ANESTHESIA ARE DOCUMENTED AND EVALUATED BELOW. I ATTEST TO THE ADEQUACY AND APPROPRIATENESS OF MY ASSESSMENT, AND CONFIRM THE NECESSITY FOR THE PLANNED PROCEDURE. I, JANET LOPEZ, DOCUMENTED THE ABOVE INFORMATION ACTING A SCRIBE FOR DR. HERNANDEZ. I HAVE REVIEWED THE ABOVE DOCUMENT, WRITTEN BY JANET LOPEZ, PHYSICIAN [facility], AND I VERIFY THAT IT IS ACCURATE. PROCEDURES PAIN NURSING RECORD PRE-PROCEDURE IV SITE RIGHT HAND, IV STARTED # 20, IV STARTED BY: Otilia KENNY RN, IV ATTEMPTS 1, PRE-PROCEDURE ORAL MEDICATIONS NONE PROCEDURE IN ROOM 1039, PHYSICIAN IN ROOM 1055, START 1102, FINISH 1109, PHYSICIAN OUT OF ROOM 1111, OUT OF ROOM 1114, STEROID KENALOG, O2 NC 2 LPM APPLIES AT 1143, ECG NORMAL SINUS, PATIENT SHIELDED YES, SAFETY STRAP YES, PREP CHLOROPREP Otilia KENNY RN, IV INFUSED LACTATED RINGERS 600 CC, DRESSING TEGADERM DR. HERNANDEZ LOC: CONNIE KENNY 09/24/2019 9:52:26 AM > 1. ALERT, ORIENTED CONNIE KENNY 09/24/2019 11:00:18 AM > 1. ALERT, ORIENTED CONNIE KENNY 09/24/2019 11:06:52 AM > 2. DROWSY, RESPONDS APPROPRIATELY CONNIE KENNY 09/24/2019 11:25:14 AM > 1. ALERT, ORIENTED RESP: EFRAÍN,CONNIE 9:52:29 AM > 1. REGULAR, NO DYSPNEA EFRAÍN,CONNIE 09/24/2019 11:00:25 AM > 1. REGULAR, NO DYSPNEA EFRAÍN,CONNIE 09/24/2019 11:06:59 AM > 1. REGULAR, NO DYSPNEA EFRAÍN,CONNIE 09/24/2019 11:26:00 AM > 1. REGULAR, NO DYSPNEA COLOR: EFRAÍN,CONNIE 09/24/2019 9:52:33 AM > 1. PINK EFRAÍN,CONNIE 09/24/2019 11:00:27 AM > 1. PINK EFRAÍN,CONNIE 09/24/2019 11:07:06 AM > 1. PINK EFRAÍN,CONNIE 09/24/2019 11:26:11 AM > SKIN: EFRAÍN,CONNIE 09/24/2019 9:52:39 AM > 1. WARM, DRY EFRAÍN,CONNIE 09/24/2019 11:000:38 AM > 1. WARM, DRY EFRAÍN,CONNIE 09/24/2019 11:07:14 AM > 1. WARM, DRY EFRAÍN,CONNIE 09/24/2019 11:27:43 AM 1. WARM, DRY POSITION: EFRAÍN,CONNIE 09/24/2019 9:52:45 AM > 1. PRONE EFRAÍN,CONNIE 09/24/2019 11:00:47 AM >1. PRONE EFRAÍN,CONNIE 09/24/2019 11:07:20 AM > 1. PRONE EFRAÍN,CONNIE 09/24/2019 11:28 4. OTHER :23 AM > SITTING VITALS: EFRAÍN,CONNIE 09/24/2019 10:40:51 AM > 123/96,67,16,97% EFRAÍN,CONNIE 09/24/2019 10:52:18 AM > 131/80,60,16,99% EFRAÍN,CONNIE 09/24/2019 10:57:40 AM > 127/81,68,20,98% EFRAÍN,CONNIE 09/24/2019 11:02:24 AM > 129/81,67,16,97% EFRAÍN,CONNIE 09/24/2019 11:07:02 AM > 128/74,65,14,95% EFRAÍN,CONNIE 09/24/2019 11:12:05 AM > 117/58,65,14,97% CONNIE KENNY 09/24/2019 11:26:02 AM >133/79, 74,16,96% DISCHARGE: POST PAIN 0/10, DRESSING SITE DRY AND INTACT, IV DISCONTINUED, SITE CLEAR, CATHETER INTACT, GAIT STEADY DISCHARGED VIA W/C DUE TO IV SEDATION, TEACHING COMPLETED, PATIENT ACKNOWLEDGES UNDERSTANDING YES, PATIENT DISCHARGED AT 1128 PN LUMBAR FACET BLOCK THERAPEUTIC PRE PROCEDURE DIAGNOSIS LUMBAR SPONDYLOSIS, LUMBOSACRAL SPONDYLOSIS POST PROCEDURE DIAGNOSIS LUMBAR SPONDYLOSIS, LUMBOSACRAL SPONDYLOSIS PROCEDURE BILATERAL L4-L5 AND BILATERAL L5-S1 LUMBAR FACET THERAPEUTIC BLOCK SURGEON DR. ANGELINA HERNANDEZ NEUROPSYCHOLOGY DIVISION CHIEF NONE ANESTHESIA LOCAL PRE PROCEDURE NOTE THE PATIENT HAS A HISTORY OF CHRONIC LOW BACK PAIN. I EVALUATED THE PATIENT AND REVIEWED THE CHART. I WENT OVER THE RISKS, ALTERNATIVES, AND BENEFITS ASSOCIATED WITH THIS PROCEDURE. I DISCUSSED THAT THE USE OF STEROIDS MAY CONTRIBUTE TO IMMUNOSUPPRESSION OF THE PATIENT'S BODY AGAINST INFECTIONS SUCH COVID-19. THE PATIENT IS AWARE OF THE POTENTIAL COMPLICATIONS ASSOCIATED WITH THIS VIRUS, INCLUDING, BUT NOT LIMITED TO, . I DISCUSSED THE USE OF DEXAMETHASONE INSTEAD OF KENALOG; HOWEVER, THE PATIENT WOULD LIKE TO MOVE FORWARD WITH KENALOG. THE PATIENT WOULD LIKE TO PROCEED AND GIVES CONSENT TO PERFORM THE PROCEDURE. THE PATIENT DENIES UNEXPLAINABLE WEIGHT LOSS, FEVER, CHILLS, OR NEW CHANGES IN URINARY OR BOWEL CONTROL. THE PATIENT WOULD LIKE TO MOVE FORWARD WITH IV SEDATION DUE TO DISCOMFORT, PAIN AND ANXIETY ASSOCIATED WITH THE PROCEDURE. THE PATIENT IS COVID-19 NEGATIVE DESCRIPTION OF PROCEDURE THE PATIENT WAS BROUGHT TO THE PROCEDURE ROOM AND PLACED IN THE PRONE POSITION. THE LUMBOSACRAL AREA WAS CLEANED WITH CHLORAPREP SOLUTION AND DRAPED ASEPTICALLY. THE PROCEDURE WAS DONE UNDER STERILE CONDITIONS. I CHECKED LATERALITY AND THE LEVEL WHERE THE PROCEDURE WAS GOING TO BE PERFORMED WITH THE PATIENT AND THE SUPPORTING STAFF AT THE MOMENT OF THE TIME OUT IN THE PROCEDURE ROOM. UNDER FLUOROSCOPIC GUIDANCE, THE TARGET POINT WAS SELECTED AT THE RIGHT AND LEFT L4-L5 AND RIGHT AND LEFT L5-S1 FACET JOINT. TARGET POINT WAS SELECTED AFTER LATERAL ROTATION AND TILT OF THE MAGNIFIER OF THE C-ARM. LIDOCAINE 0.5% WAS USED TO NUMB THE SKIN AND THE SUBCUTANEOUS TISSUE BELOW IT. SPINAL NEEDLES, 22-GAUGE, WERE ADVANCED UNDER FLUOROSCOPIC GUIDANCE AND FOLLOWING PATIENT FEEDBACK UNTIL THE TARGETS WERE TOUCHED. THE POSITION OF THE NEEDLES WAS VERIFIED WITH AP AND LATERAL VIEWS. AFTER PROPER POSITION OF THE NEEDLES WAS ACHIEVED, ISOVUE-M DYE 30%, 0.1 ML, WAS INJECTED SHOWING ADEQUATE SPREAD OF THE DYE. THEN A SOLUTION OF 1.0 ML OF BUPIVACAINE 0.125% OF KENALOG 20 MG WAS INJECTED AT EACH SITE. THERE WAS NO EVIDENCE OF BLOOD, PARESTHESIA OR CEREBROSPINAL FLUID DURING THE PROCEDURE. THE PATIENT WAS SENT TO THE RECOVERY ROOM. THE PATIENT WAS MOVING THE EXTREMITIES AND DOING WELL. THERE WAS NO COMPLICATION DURING THE PROCEDURE. EBL LESS THAN 5 ML. FLUOROSCOPY TIME WAS 36 SECONDS. PATIENT RECEIVED VERSED 2 MG AND FENTANYL 100 MCG IV IN DIVIDED DOSES. [id number] START TIME WAS 1055 [id number] END TIME WAS 1111 TOTAL [id number] TIME WAS 16 MINUTES POST PROCEDURE NOTE THE PATIENT WILL BE SEEN IN A FOLLOW UP IN THE NEXT FEW WEEKS. I AM LOOKING FOR LONG LASTING RELIEF FOR THE PATIENT WITH THIS INTERVENTION. INSTRUCTIONS WERE GIVEN, QUESTIONS WERE ANSWERED, AND THE PATIENT EXPRESSED UNDERSTANDING AND AGREES WITH THE PLAN. THE PATIENT IS AWARE TO STAY HOME FOR THE NEXT WEEK, IF POSSIBLE, DUE TO COVID-19. I, JANET LOPEZ, DOCUMENTED THE ABOVE INFORMATION ACTING A SCRIBE FOR DR. HERNANDEZ. I HAVE REVIEWED THE ABOVE DOCUMENT, WRITTEN BY JANET LOPEZ, PHYSICIAN [facility], AND I VERIFY THAT IT IS ACCURATE PROCEDURE CODES 77724 INJ PARAVERT F JNT L/S 1 LEV, MODIFIERS: 50 [id number] INJ PARAVERT F JNT L/S 2 LEV, MODIFIERS: 50 [id number] MOD SED SAME PHYS/QHP EA DISPOSITION & COMMUNICATION FOLLOW UP F/UP WITH PRINTED CIRCUIT BOARD DESIGNER (REASON: POST LFBT SARAH L4-L5, L5-S1) ELECTRONICALLY SIGNED BY ANGELINA HERNANDEZ MD, MD ON 09/24/2019 AT 12:37 PM EDT DISCLAIMER : THIS IS A VISIT SUMMARY EXTRACTED FROM THE [employer] CHART. IT IS NOT A COPY OF THE [employer] PROGRESS NOTE. MTDD
== END ==
LOC: M PAIN 09:30
PROVIDERS: ATTEND Anesthesiology
DX: M47.816 Spondylosis without myelopathy or radiculopathy, lumbar region (principal); M47.817 Spondylosis without myelopathy or radiculopathy, lumbosacral region
CPT/HCPCS: 64493; 64494; 99153; J2250; J3010; J3301; Q9967

== ENCOUNTER 2019-10-06 03:15 | Emergency (ER) | payer MEDICAID, MEDICARE ==
[~2019-10-06] VITALS: Ht 170.2 cm; Wt 95.5 kg
[~2019-10-06 03:15] MED LIST changes: -AIMO70IN SC; -ALL10TAB29 PO; -BUPIVACAINE HCL 0.25% 30ML VIAL As Ordered ONE; +CETI-24 PO; -ISOVUE-M 300 61% 15ML VIAL As Ordered ONE; -LIDOCAINE 1% SDV 30ML VIAL As Ordered ONE; -MIDAZOLAM INJ 2MG/2ML VIAL (J2250 PER 1MG) As Ordered ONE; -RELP40TA PO; -TRIAMCINOLONE ACETONIDE SUSP 40 MG/ML VIAL (J3301) As Ordered ONE; -VITAD1000T PO; -[UNRECOGNIZED DRUG - SUPPLY]; -fentaNYL 100 MCG/2 ML INJECTION (J3010) As Ordered ONE
[2019-10-06 04:28] LABS: BASO % 0.4 % (0.0-1.0); EOS # 0.1 10^3/uL (0.0-0.5); EOS % 1.1 % (0.0-3.0); HEMATOCRIT 44.3 % (42.0-52.0); HEMOGLOBIN 15.9 g/dl (13.5-17.5); LYMPH # 3.7 10^3/uL (1.5-5.0); LYMPH % 36.9 % (24.0-44.0); MEAN CORPUSCULAR HEMOGLOBIN 33.2 pg (27.0-33.0); MEAN CORPUSCULAR HGB CONC 35.9 g/dl (32.0-36.5); MEAN CORPUSCULAR VOLUME 92.5 fl (80.0-96.0); MONO # 0.8 10^3/uL (0.0-0.8); MONO % 7.9 % (0.0-5.0); NEUTROPHILS # 5.3 10^3/uL (1.5-8.5); NEUTROPHILS % 53.4 % (36.0-66.0); PLATELET COUNT, AUTOMATED 180 10^3/uL (150-450); RED BLOOD COUNT 4.79 10^6/uL (4.30-6.10); WHITE BLOOD COUNT 9.9 10^3/uL (4.0-10.0)
[2019-10-06 04:38] LABS: INR 0.9; PROTHROMBIN TIME 11.9 SECONDS (11.8-14.0)
[2019-10-06 04:39] LABS: PARTIAL THROMBOPLASTIN TIME 29.5 SECONDS (25.0-38.4)
[2019-10-06] MEDS ORDERED: RELP40TA PO (04:48)
[2019-10-06] MEDS ORDERED: TRAZ-257 PO (04:48)
[2019-10-06] MEDS ORDERED: D31000TA2 PO (04:48)
[2019-10-06] MEDS ORDERED: AIMO70IN SC (04:48)
[2019-10-06] MEDS ORDERED: [UNRECOGNIZED DRUG - SUPPLY] (04:50)
[2019-10-06 05:02] LABS: BLOOD UREA NITROGEN 9 MG/DL (7-18); CALCIUM LEVEL 8.7 MG/DL (8.5-10.1); CARBON DIOXIDE LEVEL 26 MEQ/L (21-32); CHLORIDE LEVEL 106 MEQ/L (98-107); CREATININE FOR GFR 0.95 MG/DL (0.70-1.30); GLOMERULAR FILTRATION RATE > 60.0 (>60); GLUCOSE, FASTING 97 MG/DL (70-100); POTASSIUM SERUM 3.8 MEQ/L (3.5-5.1); SODIUM LEVEL 139 MEQ/L (136-145)
--- NOTE | 2019-10-06 07:09 | REPVR ---
PROCEDURE INFORMATION: Exam: CT Pelvis Without Contrast Exam date and time: 10/06/2019 6:09 AM Age: 39 years old Clinical indication: Pain; Other: Foriegn body in rectum; Additional info: Fb eval TECHNIQUE: Imaging protocol: Computed tomography images of the pelvis without contrast. Radiation optimization: All CT scans at this facility use at least one of these dose optimization techniques: automated exposure control; mA and/or kV adjustment per patient size (includes targeted exams where dose is matched to clinical indication); or iterative reconstruction. COMPARISON: CT ABD/PEL W/IV CONTRAST ONLY 03/17/2019 3:41 PM FINDINGS: Stomach and bowel: Slight distal colonic wall thickening involving the sigmoid and rectum. Minimal intraluminal density in the distal sigmoid measuring 4 x 7 mm. Otherwise, no foreign body in the rectum. Appendix: A normal appendix is seen. Intraperitoneal space: No free fluid in the pelvis. Lymph nodes: Unremarkable. No enlarged lymph nodes. Bladder: Normal. No mass. Reproductive: Normal as visualized. Bones/joints: No fractures are identified. Soft tissues: Unremarkable. IMPRESSION: 1. Minimal nonspecific distal colitis involving the sigmoid and rectum. 2. Minimal intraluminal density in the distal sigmoid measuring 4 x [address] Otherwise negative [address] pelvis. Electronically signed by: Rolando Pérez On 10/06/2019 07:09:25 AM
[2019-10-06 09:17] VITALS: BP 128/84
--- NOTE | 2019-10-06 14:02 | REP ---
ABDOMEN SUPINE: 10/06/2019. COMPARISON: CT pelvis 10/06/2019, AP pelvis 10/06/2019. CLINICAL HISTORY: Rule out foreign body. FINDINGS: Single view shows gas pattern nonspecific with stool and gas scattered in the colon to the rectosigmoid. No dilated loops. Mostly fluid-filled small bowel loops. Bones are unremarkable. There are no abnormal soft tissue calcifications over the renal fossae or expected course of the ureters. There is no visible radiopaque foreign body. IMPRESSION: 1. Nonspecific gas pattern without obstruction, mass, or free air. 2. No visible radiopaque foreign body. Electronically Signed by Tank Landers MD 10/06/2019 07:00 P
--- NOTE | 2019-10-06 18:34 | REP ---
AP PELVIS: 10/06/2019. Clinical history: Foreign body evaluation. Question intraluminal foreign body on CT. Comparison: CT pelvis 10/06/2019. Findings: No radiopaque foreign body is visible over the pelvis with particular attention to the region of the distal sigmoid. Bones are intact. Gas pattern unremarkable. Impression: 1. Negative AP pelvis for radiographically visible foreign body. Electronically Signed by Tank Landers MD 10/06/2019 06:25 P
== END 2019-10-06 09:21 | disposition home or self-care (01) ==
LOC: M ED 03:15
DX: K62.89 Other specified diseases of anus and rectum (principal); K21.9 Gastro-esophageal reflux disease without esophagitis; F17.200 Nicotine dependence, unspecified, uncomplicated; J45.909 Unspecified asthma, uncomplicated; F31.9 Bipolar disorder, unspecified; Z79.51 Long term (current) use of inhaled steroids; Z79.899 Other long term (current) drug therapy
CPT/HCPCS: 72170; 72192; 74018; 80048; 85025; 85610; 85730; 99284; U0002

== ENCOUNTER → 2019-10-15 | Outpatient (CLI) | payer MEDICARE, MEDICAID ==
[~2019-10-15] MED LIST changes: +AIMO70IN SC; +D31000TA2 PO; +RELP40TA PO; +[UNRECOGNIZED DRUG - SUPPLY]
--- NOTE | 2019-10-16 23:16 | ECWPNPC ---
PATIENT NAME: OBED RAO : 1980 GENDER: MALE VISIT DATE: 10/15/2019 DISCHARGE DATE: 10/15/19 1344 VISIT LOCKED DATE TIME: PHYSICIAN: BROCK QUIGLEY RESOURCE: BROCK QUIGLEY REASON FOR APPOINTMENT 1. GENITOFEM PAIN/LOW BACK PAIN HISTORY OF PRESENT ILLNESS GENERAL: HERE FOR POST PROCEDURE FOLLOW-UP. HAD BILATERAL L4-5, L5-S1 FACET BLOCK, THERAPEUTIC ON 09/24/2019. REPORTING SIGNIFICANT REDUCTION IN PAIN, SOME OF WHICH CONTINUES TODAY. PAIN WENT FROM A 10 /10 VAS TO 8/10 VAS. PATIENT HAS A HISTORY OF GETTING SEVERAL MONTHS OUT OF RADIOFREQUENCY PROCEDURE IN THE PAST. DISCUSSED DOING DIAGNOSTIC TESTING. THIS WOULD NEED TO BE DONE WITHOUT IV SEDATION. PATIENT STATES HE WILL GIVE IT A TRY BUT DOES HAVE SERIOUS ANXIETY ISSUES, BUT WANTS TO TRY WITHOUT IV SEDATION. -. FALL RISK SCREENING: SCREENING :NO FALLS REPORTED IN THE LAST YEAR PAIN SCREENING: PATIENT HAS A COMPLAINT OF ACUTE OR CHRONIC PAIN :YES LOCATION OF PAIN:LOW BACK INTENSITY OF PAIN (SCALE OF 1 TO 10):8 WHAT DOES YOUR PAIN FEEL LIKE:ACHING, TENDER, THROBBING, CONTINOUS NURSING NOTE: -. PAIN CENTER INTAKE QUESTIONS: DO YOU HAVE A HISTORY OF MRSA? :NO DO YOU TAKE A BLOOD THINNERS? :NO DO YOU HAVE ANY BLEEDING DISORDERS? :NO ANY NEW NUMBNESS OR WEAKNESS IN YOUR LEGS OR ARMS? :YES OCCASIONALLY ANY PACEMAKER,DEFIBRILLATOR, OR DORSAL COLUMN STIMULATOR? :NO DO YOU HAVE ANY RASHES OR OPEN SORES? :NO ARE YOU ALLERGIC TO IV DYE? :NO ARE YOU DIABETIC? :NO ANY NEW PROBLEMS WITH YOUR MEDICATIONS? :NO HAVE YOU RECEIVED A VACCINE IN THE PAST 30 DAYS? :NO DO YOU PLAN TO RECEIVE A VACCINE IN THE NEXT 21 DAYS? :NO DO YOU NEED ANY PRESCRIPTION? :NO DO YOU TAKE ANY IMMUNOSUPPRESSIVE MEDICATIONS? :NO IS THERE A CHANCE YOU COULD BE ? :NO ARE YOU BREAST FEEDING? :NO CURRENT MEDICATIONS TAKING PROPRANOLOL HCL 20 MG TABLET 1 TABLET ORALLY TWICE A DAY, NOTES: 09/22 2099 TAKING PRIMIDONE 50 MG TABLET 1 ORALLY PO BID, NOTES: 09/22 2099 TAKING DEPAKOTE ER 500 MG TABLET EXTENDED RELEASE 24 HOUR 1 TABLET ORALLY THREE TIMES DAILY, NOTES: 09/22 2099 TAKING VITAMIN C 500 MG TABLET CHEWABLE 1 TABLET ORALLY ONCE A DAY- OTC, NOTES: 09/22 2099 TAKING EXCEDRIN TENSION HEADACHE 500-65 MG TABLET 2 TABLETS NEEDED ORALLY THREE TIMES A DAY, NOTES: 2 WEEKS AGO TAKING OMEPRAZOLE 40 MG CAPSULE DELAYED RELEASE 1 CAPSULE ORALLY BID, NOTES: 09/22 2099 TAKING SIMVASTATIN 40 MG TABLET 1 TABLET IN THE EVENING ORALLY ONCE A DAY, NOTES: 09/22 2099 TAKING FLONASE ALLERGY RELIEF 50 MCG/ACT SUSPENSION 1 SPRAY IN EACH NOSTRIL NASALLY ONCE A DAY, NOTES: 09/22 2099 TAKING MONTELUKAST SODIUM 10 MG TABLET 1 TABLET ORALLY ONCE A DAY, NOTES: 09/22 2099 TAKING AYR SALINE NASAL NETI RINSE 1.57 GM PACKET DIRECTED NASALLY DAILY, NOTES: 09/22 2099 TAKING ALBUTEROL SULFATE HFA 108 (90 BASE) MCG/ACT AEROSOL SOLUTION 2 PUFFS NEEDED INHALATION EVERY 6 HRS, NOTES: NONE RECENT TAKING VITAMIN D 50 MCG (1999 UT) CAPSULE 1 CAPSULE ORALLY ONCE A DAY, NOTES: 09/22 2099 TAKING AYANNA ALLERGY 180 MG TABLET 1 TABLET NEEDED ORALLY ONCE A DAY, NOTES: 09/22 2099 TAKING NICORETTE 4 MG GUM 1 PIECE FOR 30 MINUTE NEEDED MOUTH/THROAT 24 TIME(S) A DAY, NOTES: 09/22 2099 TAKING RELPAX 20 MG TABLET 1 TABLET ORALLY ONCE A DAY, NOTES: 09/19 TAKING BOTOX 100 UNIT SOLUTION RECONSTITUTED DIRECTED INJECTION EVERY MONTH, NOTES: AUGUST 2019 TAKING GABAPENTIN 100 MG CAPSULE 2 CAP ORALLY FOR PAIN TID, NOTES: 09/22 2099 NOT-TAKING NICOTROL 10 MG INHALER 1 CARTRIDGE NEEDED INHALATION 16 TIME(S) A DAY NOT-TAKING AMOXICILLIN 500 MG CAPSULE 1 CAPSULE ORALLY EVERY 12 HRS NOT-TAKING CYMBALTA 60 MG CAPSULE DELAYED RELEASE PARTICLES 1 CAPSULE ORALLY FOR PAIN DAILY NOT-TAKING HIBICLENS 4 % LIQUID DIRECTED EXTERNALLY DAILY AT PELVIC AREA NOT-TAKING CETIRIZINE HCL 10 MG TABLET 1 TABLET ORALLY ONCE A DAY NOT-TAKING ZOLMITRIPTAN 5 MG TABLET 1 TABLET NEEDED ONE TIME ORALLY ONCE A DAY NOT-TAKING SUCRALFATE 1 GM TABLET ORAL DIRECTED NOT-TAKING PERCOCET 10-325 MG TABLET 1 TABLET NEEDED ORALLY EVERY 6 HRS, NOTES: FOR SINUS SURGERY NOT-TAKING KEFLEX 500 MG CAPSULE 1 CAPSULE ORALLY EVERY 12 HRS MEDICATION LIST REVIEWED AND RECONCILED WITH THE PATIENT PAST MEDICAL HISTORY HIGH CHOLESTEROL BIPOLAR ADHD ALLERGIES ASTHMA SLEEP APNEA 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 COLONOSCOPY 03/2018: MILD NONSPECIFIC CHRONIC INFLAMMATION NOTED ON BIOPSY, NO ACTIVE COLITIS, DYSPLASIA OR GRANULOMA IDENTIFIED EGD 03/2018: MILD CHRONIC GASTRITIS NOTED ON BIOPSY, NO H-PYLORI RIANNA: MANAGED BY NEUROLOGY SCROTAL PAIN ED- FOLLOWING WITH UROLOGY CARTHAGE 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 INFECTION ALLERGIES SEASONAL ALLERGIES: SNEEZING, COUGHING - ALLERGY SURGICAL HISTORY PERIANAL ABCESS X2 - MIHIR, DR DEMARCO SCHAFER 10/2015 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 - MIHIR, (?REACTION TO DYE) 12/2015 R SHOULDER ROTATOR CUFF, SOS 2017 ALL UPPER TEETH EXT, TAI DENTAL, 2018 VASECTOMY- [facility]/UROLOGY, WITH SEVERE SCAR TISSUE 2018 ENDOSCOPY UPPER AND LOWER, WITH BX-[facility], ADDITIONAL TESTING 03/2018 SINUS SURGERY- POLYP FAMILY HISTORY FATHER: 80 YRS, DIAGNOSED WITH OTHER MALIGNANT NEOPLASM OF UNSPECIFIED SITE MOTHER: ALIVE 54 YRS, HYPERTENSION SIBLINGS: UNKNOWN SON(S): ALIVE DAUGHTER(S): ALIVE 1 YRS PATERNAL GRAND FATHER: UNKNOWN PATERNAL GRAND MOTHER: UNKNOWN MATERNAL GRAND FATHER: 65 YRS, UNSPECIFIED HEART DISEASE, DIABETES, HYPERTENSION MATERNAL GRAND MOTHER: 68 YRS, HYPERTENSION, UNSPECIFIED HEART DISEASE - HTN, HIGH CHOLESTEROL, ALLERGIES, ASTHMA, 1YR DAUGHTER, 1MONTH OLD SON- NO KNOWN RAGHAVENDRA ISSUES, MATERNAL GRANDPARENTS- GRANDMOTHER 65, DM, HEART, CHOLESTEROL, HTN, PARKINSONS,GRANDFATHER- 68 HEART DISEASE, HTN, NADIA CHOLESTEROL, COUGH-THROAT CLOSING-ISSUES. SOCIAL HISTORY GENERAL: TOBACCO USE ARE YOU A:FORMER SMOKER NICOTINE GUM HOW LONG HAS IT BEEN SINCE YOU LAST SMOKED?6-12 MONTHS SMOKING CESSATION INFORMATION GIVEN06/06/2019 LATEX QUESTIONNAIRE LATEX ALLERGY : HAVE YOU EVER DEVELOPED ANY TYPE OF REACTION AFTER HANDLING LATEX PRODUCTS SUCH RUBBER GLOVES, CONDOMS, DIAPHRAGMS, BALLOONS, SOCKS, OR UNDERWEAR?NO LATEX ALLERGY : HAVE YOU EVER DEVELOPED ANY TYPE OF REACTION DURING OR AFTER DENTAL APPOINTMENT, VAGINAL/RECTAL EXAMINATION, SURGICAL PROCEDURE, OR ANY OTHER EXPOSURE?NO LATEX RISK : HAVE YOU EVER HAD ANY DIFFICULTY BREATHING OR HIVES AFTER EATING OR HANDLING ANY FRUITS, OR VEGETABLES; SUCH KIWI, BANANAS, STONE FRUITS, OR CHESTNUTSNO LATEX RISK : DO YOU HAVE A PREVIOUS PERSONAL HISTORY OF MORE THAN NINE SURGERIES, SPINA BIFIDA, OR REPEATED CATHERIZATIONS? YES - PLEASE INDICATE : > 9 SURGERIES LATEX RISK : ARE YOU FREQUENTLY EXPOSED TO LATEX PRODUCTS IN YOUR OCCUPATION?NO DATE ASKED : 10/15/2019 ALCOHOL SCREENING DID YOU HAVE A DRINK CONTAINING ALCOHOL IN THE PAST YEAR?YES HOW OFTEN DID YOU HAVE SIX OR MORE DRINKS ON ONE OCCASION IN THE PAST YEAR?NEVER (0 POINTS) HOW MANY DRINKS DID YOU HAVE ON A TYPICAL DAY WHEN YOU WERE DRINKING IN THE PAST YEAR?1 OR 2 (0 POINTS) HOW OFTEN DID YOU HAVE A DRINK CONTAINING ALCOHOL IN THE PAST YEAR?MONTHLY OR LESS (1 POINT) POINTS1 INTERPRETATIONNEGATIVE RECREATIONAL DRUG USE DRUG USE?NO DENIES 09/02/19 CAFFEINE CAFFEINE USE?NO PEPSI 3 BOTTLES A DAY SEXUAL HX HAD SEX IN THE LAST 12 MONTHS (VAGINAL, ORAL, OR ANAL)?YES WITHWOMEN ONLY PREVENTION STRATEGIES DISCUSSED:OTHER USE PROTECTION?NO HAVE YOU EVER HAD AN STD?NO HIV / HEP-C SCREENING HIV TEST OFFERED TO PATIENT:YES DATE OFFERED:05/01/2017 TEST ACCEPTED:NO REASON:PATIENT DECLINED JUDA[employer] [id number] L[employer] LANGUAGES SPOKEN:DIVEHI EDUCATION LEVEL OF EDUCATION:HIGH SCHOOL LEARNING BARRIERS / SPECIAL NEEDS CHANGE FROM LAST VISIT?NO BARRIERS TO LEARNING?NO HEARING IMPAIRED?NO VISION IMPAIRED?YES COGNITIVELY IMPAIRED?NO :CORRECTIVE LENSES READINESS TO LEARN?YES LEARNING PREFERENCES?NO LEARNING CAPABILITIES PRESENT?YES EMOTIONAL BARRIERS?NO SPECIAL DEVICES?NO WIRE BORDER ASSEMBLER NEEDED?NO DOMESTIC VIOLENCE DO YOU FEEL SAFE IN YOUR ENVIRONMENT?YES OCCUPATION: UNEMPLOYED. DIET: REGULAR. EXERCISE: DAILY, WALKS. MARITAL STATUS: SINGLE. OTHERS AT HOME: CHILDREN. PAIN CLINIC PFS, CLERGY, PUBLIC HEALTH REFERRALS WAS THE PROVIDER NOTIFIED OF ANY PERTINENT INFO?YES HAS THE PATIENT BEEN EDUCATED REGARDING HIS/HER PLAN OF CARE?YES HAS THE PATIENT BEEN EDUCATED REGARDING PAIN, THE RISK FOR PAIN, THE IMPORTANCE OF EFFECTIVE PAIN MANAGEMENT, AND THE PAIN ASSESSMENT PROCESS?YES ADVANCE DIRECTIVE ADVANCE DIRECTIVE DISCUSSED WITH PATIENT:YES PT DOES NOT HAVE HCP AND DECLINES INFO AND ASSISTANCE AT THIS TIME. HOSPITALIZATION/MAJOR DIAGNOSTIC PROCEDURE SURIGCAL RELATED SMC CELLULITIS RIGHT GROIN WITH ABSCESS 10/06-10/09/17 REVIEW OF SYSTEMS CONSTITUTIONAL: ANY RECENT FEVER NO . CHILLS NO . WEIGHT CHANGE OF UNKNOWN REASONS NO . GASTROENTEROLOGY: NEW UNEXPLAINABLE CHANGES IN BOWEL CONTROL NO . CONSTIPATION NO . GENITOURINARY: ANY NEW CHANGE IN BLADDER CONTROL? NO . NEUROLOGY: NEW ONSET DIZZINESS OR NEUROLOGICAL CHANGES NOT MENTIONED NO . NEW NUMBNESS OR PAIN PATTERNS NOT MENTIONED AND PERTINENT TO TODAY'S VISIT NO . CARDIOLOGY: NEW CHEST PRESSURE NO . NEW CHEST PAIN NO . RESPIRATORY: UNEXPLAINABLE COUGH NO . NEW SHORTNESS OF BREATH NO . VITAL SIGNS WT 197 LBS, HT 65 IN, BMI 32.78 INDEX, BP 121/85 MM HG, HR 78 /MIN, RR 20 /MIN, TEMP 98.6 F, OXYGEN SAT % 97, SAFE IN ENV? (Y/N) YESK. MARIIA PIKE II @ 1308. EXAMINATION GENERAL EXAMINATION: GENERALNO ACUTE DISTRESS, WELL NOURISHED AND HYDRATED. PSYCHAPPROPRIATE MOOD AND AFFECT . FACE:UNREMARKABLE. NECK:NO LYMPHADENOPATHY, SUPPLE, . LUNGS:CLEAR TO AUSCULTATION BILATERALLY, NO WHEEZES, RHONCHI, RALES. HEART:NO MURMURS, REGULAR RATE AND RHYTHM. LUMBAR: MUSCLE STRENGTH TESTING 5/5 BILATERAL LOWER EXTREMITIES , PALPATION: POSITIVE FOR PAIN OVER L/S SPINE. POSITIVE FOR PAIN OVER L/S PARSPINALS. SPECIFIC POINT TENDERNESS NOTED OVER BILATERAL LUMBAR L4-5, L5-S1 FACETS. PAIN IS AGGRAVATED IN THIS AREA WITH FACET LOADING.. ASSESSMENTS SPONDYLOSIS WITHOUT MYELOPATHY OR RADICULOPATHY, LUMBAR REGION - M47.816 (PRIMARY) TREATMENT SPONDYLOSIS WITHOUT MYELOPATHY OR RADICULOPATHY, LUMBAR REGION NOTES: BILATERAL L4-5, L5-S1 DIAGNOSTIC LUMBAR FACET BLOCK. PROCEDURE CODES FA211 ESTABILISHED PATIENT [facility] CHARGE DISPOSITION & COMMUNICATION FOLLOW UP POSTPROCEDURE (REASON: BILATERAL L4-5, L5-S1 DIAGNOSTIC LUMBAR FACET BLOCK) ELECTRONICALLY SIGNED BY FAM CERRATO ON 10/16/2019 AT 09:00 AM EDT DISCLAIMER : THIS IS A VISIT SUMMARY EXTRACTED FROM THE [facility] CHART. IT IS NOT A COPY OF THE [facility] PROGRESS NOTE. MARY
== END ==
LOC: M PAIN 13:15
PROVIDERS: ATTEND Nurse Practitioner Family
DX: M47.816 Spondylosis without myelopathy or radiculopathy, lumbar region (principal)

== ENCOUNTER → 2019-10-23 | Outpatient (REF) | payer MEDICARE, MEDICAID | LOC: M LAB REF 12:15 | PROVIDERS: ATTEND Physician Assistant | DX: J02.9 Acute pharyngitis, unspecified (principal) ==

== ENCOUNTER → 2019-11-04 | Outpatient (POV) | payer MEDICARE, MEDICAID ==
[~2019-11-04] MED LIST changes: +BUPIVACAINE HCL 0.25% 30ML VIAL As Ordered ONE; +BUPIVACAINE HCL 0.25% 30ML VIAL ONE; +ISOVUE-M 300 61% 15ML VIAL As Ordered ONE; +ISOVUE-M 300 61% 15ML VIAL ONE; +LIDOCAINE 1% SDV 30ML VIAL As Ordered ONE; +LIDOCAINE 1% SDV 30ML VIAL ONE
--- NOTE | 2020-01-29 13:29 | REP ---
C-ARM VIEWS OF THE LOWER LUMBAR SPINE: HISTORY: Pain. FINDINGS: 2 C-arm views of the lower lumbar spine are performed during bilateral lower lumbar facet injection performed by Dr. Reeves. Three needles are seen along the lower lumbar facet joints bilaterally. 14 seconds of fluoroscopy time utilized. MTDD
== END ==
LOC: M PAIN 11:30
PROVIDERS: ATTEND Anesthesiology
DX: M47.816 Spondylosis without myelopathy or radiculopathy, lumbar region (principal); M47.817 Spondylosis without myelopathy or radiculopathy, lumbosacral region

== ENCOUNTER → 2019-11-11 | Outpatient (CLI) | payer MEDICARE ==
[~2019-11-11] MED LIST changes: -BUPIVACAINE HCL 0.25% 30ML VIAL As Ordered ONE; -BUPIVACAINE HCL 0.25% 30ML VIAL ONE; -ISOVUE-M 300 61% 15ML VIAL As Ordered ONE; -ISOVUE-M 300 61% 15ML VIAL ONE; -LIDOCAINE 1% SDV 30ML VIAL As Ordered ONE; -LIDOCAINE 1% SDV 30ML VIAL ONE
--- NOTE | 2019-12-06 15:50 | PULFX ---
ORDERING PHYSICIAN: Franko Baeza MD Pre and post bronchodilator therapy have excellent technical quality. Forced vital capacity reduced. FEV-1 proportionate with adequate exchange flow normal. expiratory limb of the flow volume loop does suggest some degree of nonspecific limitation. At least a mild degree of bronchodilator response is identified. Total lung capacity normal. Residual volume proportionate. Diffusion capacity minimally reduced as appropriate for alveolar volume and no hemoglobin available for correction. Resistance and conductance are normal. IMPRESSION: Mild nonspecific flow rate reduction with bronchodilator response. Please correlate clinically MTDD
--- NOTE | 2019-12-09 07:38 | PFTRPT ---
Visit Date: 11/11/2019 Second ID: [id number] Referring Doctor: MARIANA AGUILAR MD Height: 66.00 Inches Weight: 191.00 Lbs BSA: 1.96 Diagnosis: R94.2 TECHNIQUE: Study of excellent technical quality pre- and post-bronchodilator study. FINDINGS: Forced vital capacity is reduced. FEV1 is in proportion of obstructive index; therefore, normal. Expiratory limit within the flow-volume loop suggests nonspecific limitation. Only borderline bronchodilator response is identified. Total lung capacity normal. Residual volume is in proportion. Diffusing capacity, although minimally reduced, is appropriate for alveolar volume. Airway resistance and conductance are normal. IMPRESSION: Nonspecific flow rate limitation with borderline bronchodilator response. Please correlate clinically. MTDD
== END ==
LOC: M CARPUL 15:00
PROVIDERS: ATTEND Family Medicine Addiction Medicine
DX: R94.2 Abnormal results of pulmonary function studies (principal)

== ENCOUNTER → 2019-11-28 | Outpatient (CLI) | payer MEDICARE | LOC: M PAIN 11:10 | PROVIDERS: ATTEND Nurse Practitioner Family | DX: G58.8 Other specified mononeuropathies (principal) ==

== ENCOUNTER → 2019-12-06 | Outpatient (CLI) | payer MEDICARE | LOC: M LABSMTC 13:06 | PROVIDERS: ATTEND Anesthesiology | DX: Z20.828 Contact with and (suspected) exposure to other viral communicable diseases (principal) | CPT/HCPCS: C9803; U0003 ==

== ENCOUNTER → 2019-12-10 | Outpatient (CLI) | payer MEDICARE | LOC: M PAIN 14:30 | PROVIDERS: ATTEND Anesthesiology | DX: G58.8 Other specified mononeuropathies (principal) ==

== ENCOUNTER → 2019-12-11 | Outpatient (CLI) | payer MEDICARE ==
[~2019-12-11] MED LIST changes: +BUPIVACAINE HCL 0.25% 30ML VIAL As Ordered ONE; +ISOVUE-M 300 61% 15ML VIAL As Ordered ONE; +LIDOCAINE 1% SDV 30ML VIAL As Ordered ONE; +MIDAZOLAM INJ 2MG/2ML VIAL (J2250 PER 1MG) As Ordered ONE; +TRIAMCINOLONE ACETONIDE SUSP 40 MG/ML VIAL (J3301) As Ordered ONE; +fentaNYL 100 MCG/2 ML INJECTION (J3010) As Ordered ONE
== END ==
LOC: M PAIN 08:03
PROVIDERS: ATTEND Anesthesiology
DX: G58.8 Other specified mononeuropathies (principal)
CPT/HCPCS: 64425; 99152; 99153; G0463; J2250; J3010; J3301; Q9967

== ENCOUNTER → 2019-12-24 | Outpatient (CLI) | payer MEDICARE ==
[~2019-12-24] MED LIST changes: -BUPIVACAINE HCL 0.25% 30ML VIAL As Ordered ONE; -ISOVUE-M 300 61% 15ML VIAL As Ordered ONE; -LIDOCAINE 1% SDV 30ML VIAL As Ordered ONE; -MIDAZOLAM INJ 2MG/2ML VIAL (J2250 PER 1MG) As Ordered ONE; -TRIAMCINOLONE ACETONIDE SUSP 40 MG/ML VIAL (J3301) As Ordered ONE; -fentaNYL 100 MCG/2 ML INJECTION (J3010) As Ordered ONE
== END ==
LOC: M PAIN 13:46
PROVIDERS: ATTEND Nurse Practitioner Family
DX: G58.8 Other specified mononeuropathies (principal); Z79.899 Other long term (current) drug therapy

== ENCOUNTER → 2019-12-31 | Outpatient (CLI) | payer MEDICARE ==
[2019-12-31 12:27] LABS: BASO % 0.5 % (0.0-1.0); EOS # 0.1 10^3/uL (0.0-0.5); EOS % 1.2 % (0.0-3.0); HEMATOCRIT 46.3 % (42.0-52.0); HEMOGLOBIN 15.7 g/dl (13.5-17.5); LYMPH # 2.1 10^3/uL (1.5-5.0); LYMPH % 37.8 % (24.0-44.0); MEAN CORPUSCULAR HEMOGLOBIN 32.6 pg (27.0-33.0); MEAN CORPUSCULAR HGB CONC 33.9 g/dl (32.0-36.5); MEAN CORPUSCULAR VOLUME 96.1 fl (80.0-96.0); MONO # 0.5 10^3/uL (0.0-0.8); MONO % 9.6 % (0.0-5.0); NEUTROPHILS # 2.9 10^3/uL (1.5-8.5); NEUTROPHILS % 50.5 % (36.0-66.0); PLATELET COUNT, AUTOMATED 145 10^3/uL (150-450); RED BLOOD COUNT 4.82 10^6/uL (4.30-6.10); WHITE BLOOD COUNT 5.6 10^3/uL (4.0-10.0)
[2019-12-31 13:01] LABS: ALBUMIN 3.8 GM/DL (3.2-5.2); ALT/SGPT 21 U/L (12-78); BILIRUBIN,TOTAL 0.4 MG/DL (0.2-1.0); BLOOD UREA NITROGEN 7 MG/DL (7-18); CALCIUM LEVEL 8.8 MG/DL (8.5-10.1); CARBON DIOXIDE LEVEL 31 MEQ/L (21-32); CHLORIDE LEVEL 105 MEQ/L (98-107); CREATININE FOR GFR 0.86 MG/DL (0.70-1.30); GLOMERULAR FILTRATION RATE > 60.0 (>60); GLUCOSE, FASTING 74 MG/DL (70-100); POTASSIUM SERUM 3.6 MEQ/L (3.5-5.1); SODIUM LEVEL 142 MEQ/L (136-145); TOTAL PROTEIN 6.7 GM/DL (6.4-8.2); VALPROIC ACID (DEPAKOTE) 70.1 UG/ML (50.0-100.0)
== END ==
LOC: M WUC 09:13
PROVIDERS: ATTEND Physician Assistant
DX: F63.81 Intermittent explosive disorder (principal); Z79.899 Other long term (current) drug therapy

== ENCOUNTER → 2020-01-04 | Outpatient (CLI) | payer MEDICARE | LOC: M LABSMTC 11:40 | PROVIDERS: ATTEND Anesthesiology | DX: Z20.828 Contact with and (suspected) exposure to other viral communicable diseases (principal) | CPT/HCPCS: C9803; U0003 ==

== ENCOUNTER → 2020-01-08 | Outpatient (CLI) | payer MEDICARE, MEDICAID ==
[~2020-01-08] MED LIST changes: +BUPIVACAINE HCL 0.25% 30ML VIAL As Ordered ONE; +ISOVUE-M 300 61% 15ML VIAL As Ordered ONE; +LIDOCAINE 1% SDV 30ML VIAL As Ordered ONE; +MIDAZOLAM INJ 2MG/2ML VIAL (J2250 PER 1MG) As Ordered ONE; +TRIAMCINOLONE ACETONIDE SUSP 40 MG/ML VIAL (J3301) As Ordered ONE; +fentaNYL 100 MCG/2 ML INJECTION (J3010) As Ordered ONE
--- NOTE | 2020-01-10 02:32 | ECWPNPC ---
PATIENT NAME: OBED RAO : 1980 GENDER: MALE VISIT DATE: 01/08/2020 DISCHARGE DATE: 01/08/20 1630 VISIT LOCKED DATE TIME: PHYSICIAN: ANGELINA HERNANDEZ MD RESOURCE: ANGELINA HERNANDEZ MD REASON FOR APPOINTMENT 1. PRE-SEDATE HISTORY OF PRESENT ILLNESS GENERAL: 39-YEAR-OLD MALE PATIENT WITH A HISTORY OF CHRONIC RIGHT INGUINAL AREA AND RIGHT TESTICAL PAIN. THE PATIENT DESCRIBES THE PAIN ACHING AND BURNING WITH A PAIN SCORE RANGING FROM 6-9/10 DEPENDING ON PHYSICAL ACTIVITY. THE PATIENT HAS HAD MANY GENITOFEMORAL NERVE BLOCKS IN THE PAST THAT HAVE WORKED. THE LAST BLOCK WAS 4-5 MONTHS AGO, UNFORTUNATELY, THE PAIN HAS COME BACK. THE PATIENT STATES THAT THE PAIN IS AFFECTING HIS ACTIVITIES OF DAILY LIVING. PATIENT DENIES UNEXPLAINABLE WEIGHT LOSS, FEVER, CHILLS, NEW CHANGES ON HIS URINARY OR BOWEL CONTROL. FALL RISK SCREENING: SCREENING :NO FALLS REPORTED IN THE LAST YEAR PAIN SCREENING: PATIENT HAS A COMPLAINT OF ACUTE OR CHRONIC PAIN :YES LOCATION OF PAIN:OTHER: RIGHT GROIN INTENSITY OF PAIN (SCALE OF 1 TO 10):10 WHAT DOES YOUR PAIN FEEL LIKE:ACHING, BURNING, CONTINOUS, SHARP, STABBING DURATION:CONTINOUS PAIN IS INCREASED BY:ACTIVITIES, PROLONGED STANDING PAIN IS DECREASED BY:OTHERS NOTHING NURSING NOTE: -. CURRENT MEDICATIONS TAKING PROPRANOLOL HCL 20 MG TABLET 1 TABLET ORALLY TWICE A DAY TAKING PRIMIDONE 50 MG TABLET 1 ORALLY PO BID TAKING DEPAKOTE ER 500 MG TABLET EXTENDED RELEASE 24 HOUR 1 TABLET ORALLY THREE TIMES DAILY TAKING VITAMIN C 500 MG TABLET CHEWABLE 1 TABLET ORALLY ONCE A DAY- OTC TAKING EXCEDRIN TENSION HEADACHE 500-65 MG TABLET 2 TABLETS NEEDED ORALLY THREE TIMES A DAY TAKING OMEPRAZOLE 40 MG CAPSULE DELAYED RELEASE 1 CAPSULE ORALLY BID TAKING SIMVASTATIN 40 MG TABLET 1 TABLET IN THE EVENING ORALLY ONCE A DAY TAKING FLONASE ALLERGY RELIEF 50 MCG/ACT SUSPENSION 1 SPRAY IN EACH NOSTRIL NASALLY ONCE A DAY TAKING MONTELUKAST SODIUM 10 MG TABLET 1 TABLET ORALLY ONCE A DAY TAKING AYR SALINE NASAL NETI RINSE 1.57 GM PACKET DIRECTED NASALLY DAILY TAKING ALBUTEROL SULFATE HFA 108 (90 BASE) MCG/ACT AEROSOL SOLUTION 2 PUFFS NEEDED INHALATION EVERY 6 HRS TAKING VITAMIN D 50 MCG (2000 UT) CAPSULE 1 CAPSULE ORALLY ONCE A DAY TAKING AYANNA ALLERGY 180 MG TABLET 1 TABLET NEEDED ORALLY ONCE A DAY TAKING NICORETTE 4 MG GUM 1 PIECE FOR 30 MINUTE NEEDED MOUTH/THROAT 24 TIME(S) A DAY TAKING RELPAX 20 MG TABLET 1 TABLET ORALLY ONCE A DAY TAKING GABAPENTIN 100 MG CAPSULE 2 CAP ORALLY FOR PAIN TID TAKING AIMOVIG 70 MG/ML SOLUTION AUTO-INJECTOR DIRECTED SUBCUTANEOUS TAKING GUANFACINE HCL 1 MG TABLET 1 TABLET AT BEDTIME ORALLY ONCE A DAY NOT-TAKING BOTOX 100 UNIT SOLUTION RECONSTITUTED DIRECTED INJECTION EVERY MONTH NOT-TAKING NICOTROL 10 MG INHALER 1 CARTRIDGE NEEDED INHALATION 16 TIME(S) A DAY NOT-TAKING AMOXICILLIN 500 MG CAPSULE 1 CAPSULE ORALLY EVERY 12 HRS NOT-TAKING CYMBALTA 60 MG CAPSULE DELAYED RELEASE PARTICLES 1 CAPSULE ORALLY FOR PAIN DAILY NOT-TAKING HIBICLENS 4 % LIQUID DIRECTED EXTERNALLY DAILY AT PELVIC AREA NOT-TAKING CETIRIZINE HCL 10 MG TABLET 1 TABLET ORALLY ONCE A DAY NOT-TAKING ZOLMITRIPTAN 5 MG TABLET 1 TABLET NEEDED ONE TIME ORALLY ONCE A DAY NOT-TAKING SUCRALFATE 1 GM TABLET ORAL DIRECTED NOT-TAKING PERCOCET 10-325 MG TABLET 1 TABLET NEEDED ORALLY EVERY 6 HRS, NOTES: FOR SINUS SURGERY NOT-TAKING KEFLEX 500 MG CAPSULE 1 CAPSULE ORALLY EVERY 12 HRS MEDICATION LIST REVIEWED AND RECONCILED WITH THE PATIENT PAST MEDICAL HISTORY HIGH CHOLESTEROL BIPOLAR ADHD ALLERGIES ASTHMA SLEEP APNEA 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 COLONOSCOPY 03/2018: MILD NONSPECIFIC CHRONIC INFLAMMATION NOTED ON BIOPSY, NO ACTIVE COLITIS, DYSPLASIA OR GRANULOMA IDENTIFIED EGD 03/2018: MILD CHRONIC GASTRITIS NOTED ON BIOPSY, NO H-PYLORI RIANNA: MANAGED BY NEUROLOGY SCROTAL PAIN ED- FOLLOWING WITH UROLOGY ALVAGE 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 INFECTION ALLERGIES SEASONAL ALLERGIES: SNEEZING, COUGHING - ALLERGY SURGICAL HISTORY PERIANAL ABCESS X2 - MIHIR, DR DEMARCO SCHAFER 10/2015 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 - MIHIR, (?REACTION TO DYE) 12/2015 R SHOULDER ROTATOR CUFF, SOS 2017 ALL UPPER TEETH EXT, TAI DENTAL, 2018 VASECTOMY- [facility]/UROLOGY, WITH SEVERE SCAR TISSUE 2018 ENDOSCOPY UPPER AND LOWER, WITH BX-[facility], ADDITIONAL TESTING 03/2018 SINUS SURGERY- POLYP FAMILY HISTORY FATHER: 80 YRS, DIAGNOSED WITH OTHER MALIGNANT NEOPLASM OF UNSPECIFIED SITE MOTHER: ALIVE 54 YRS, HYPERTENSION SIBLINGS: UNKNOWN SON(S): ALIVE DAUGHTER(S): ALIVE 1 YRS PATERNAL GRAND FATHER: UNKNOWN PATERNAL GRAND MOTHER: UNKNOWN MATERNAL GRAND FATHER: 65 YRS, HYPERTENSION, UNSPECIFIED HEART DISEASE, DIABETES MATERNAL GRAND MOTHER: 68 YRS, HYPERTENSION, UNSPECIFIED HEART DISEASE - HTN, HIGH CHOLESTEROL, ALLERGIES, ASTHMA, 1YR DAUGHTER, 1MONTH OLD SON- NO KNOWN RAGHAVENDRA ISSUES, MATERNAL GRANDPARENTS- GRANDMOTHER 65, DM, HEART, CHOLESTEROL, HTN, PARKINSONS,GRANDFATHER- 68 HEART DISEASE, HTN, NADIA CHOLESTEROL, COUGH-THROAT CLOSING-ISSUES. SOCIAL HISTORY GENERAL: TOBACCO USE ARE YOU A:FORMER SMOKER NICOTINE GUM HOW LONG HAS IT BEEN SINCE YOU LAST SMOKED?6-12 MONTHS SMOKING CESSATION INFORMATION GIVEN06/06/2019 LATEX QUESTIONNAIRE LATEX ALLERGY : HAVE YOU EVER DEVELOPED ANY TYPE OF REACTION AFTER HANDLING LATEX PRODUCTS SUCH RUBBER GLOVES, CONDOMS, DIAPHRAGMS, BALLOONS, SOCKS, OR UNDERWEAR?NO LATEX ALLERGY : HAVE YOU EVER DEVELOPED ANY TYPE OF REACTION DURING OR AFTER DENTAL APPOINTMENT, VAGINAL/RECTAL EXAMINATION, SURGICAL PROCEDURE, OR ANY OTHER EXPOSURE?NO LATEX RISK : HAVE YOU EVER HAD ANY DIFFICULTY BREATHING OR HIVES AFTER EATING OR HANDLING ANY FRUITS, OR VEGETABLES; SUCH KIWI, BANANAS, STONE FRUITS, OR CHESTNUTSNO LATEX RISK : DO YOU HAVE A PREVIOUS PERSONAL HISTORY OF MORE THAN NINE SURGERIES, SPINA BIFIDA, OR REPEATED CATHERIZATIONS? YES - PLEASE INDICATE : > 9 SURGERIES LATEX RISK : ARE YOU FREQUENTLY EXPOSED TO LATEX PRODUCTS IN YOUR OCCUPATION?NO DATE ASKED : 01/08/2020 ALCOHOL SCREENING DID YOU HAVE A DRINK CONTAINING ALCOHOL IN THE PAST YEAR?YES HOW OFTEN DID YOU HAVE SIX OR MORE DRINKS ON ONE OCCASION IN THE PAST YEAR?NEVER (0 POINTS) HOW MANY DRINKS DID YOU HAVE ON A TYPICAL DAY WHEN YOU WERE DRINKING IN THE PAST YEAR?1 OR 2 (0 POINTS) HOW OFTEN DID YOU HAVE A DRINK CONTAINING ALCOHOL IN THE PAST YEAR?MONTHLY OR LESS (1 POINT) POINTS1 INTERPRETATIONNEGATIVE RECREATIONAL DRUG USE DRUG USE?NO DENIES 09/02/19 CAFFEINE CAFFEINE USE?NO PEPSI 3 BOTTLES A DAY SEXUAL HX HAD SEX IN THE LAST 12 MONTHS (VAGINAL, ORAL, OR ANAL)?YES WITHWOMEN ONLY PREVENTION STRATEGIES DISCUSSED:OTHER USE PROTECTION?NO HAVE YOU EVER HAD AN STD?NO HIV / HEP-C SCREENING HIV TEST OFFERED TO PATIENT:YES DATE OFFERED:05/01/2017 TEST ACCEPTED:NO REASON:PATIENT DECLINED HINDU [id number] [employer] LANGUAGES SPOKEN:TAJIK EDUCATION LEVEL OF EDUCATION:HIGH SCHOOL LEARNING BARRIERS / SPECIAL NEEDS CHANGE FROM LAST VISIT?NO BARRIERS TO LEARNING?NO HEARING IMPAIRED?NO VISION IMPAIRED?YES COGNITIVELY IMPAIRED?NO :CORRECTIVE LENSES READINESS TO LEARN?YES LEARNING PREFERENCES?NO LEARNING CAPABILITIES PRESENT?YES EMOTIONAL BARRIERS?NO SPECIAL DEVICES?NO HELP DESK TEAM LEADER NEEDED?NO DOMESTIC VIOLENCE DO YOU FEEL SAFE IN YOUR ENVIRONMENT?YES OCCUPATION: UNEMPLOYED. DIET: REGULAR. EXERCISE: DAILY, WALKS. MARITAL STATUS: SINGLE. OTHERS AT HOME: CHILDREN. PAIN CLINIC PFS, CLERGY, PUBLIC HEALTH REFERRALS WAS THE PROVIDER NOTIFIED OF ANY PERTINENT INFO?YES HAS THE PATIENT BEEN EDUCATED REGARDING HIS/HER PLAN OF CARE?YES HAS THE PATIENT BEEN EDUCATED REGARDING PAIN, THE RISK FOR PAIN, THE IMPORTANCE OF EFFECTIVE PAIN MANAGEMENT, AND THE PAIN ASSESSMENT PROCESS?YES ADVANCE DIRECTIVE ADVANCE DIRECTIVE DISCUSSED WITH PATIENT:YES PT DOES NOT HAVE HCP AND DECLINES INFO AND ASSISTANCE AT THIS TIME. HOSPITALIZATION/MAJOR DIAGNOSTIC PROCEDURE SURIGCAL RELATED SMC CELLULITIS RIGHT GROIN WITH ABSCESS 10/06-10/09/17 REVIEW OF SYSTEMS GLAUCOMA: NOTHYROID DISEASE: NOHYPERTENSION: NOHEART DISEASE: NOLUNG DISEASE: NODIABETES: NOGI DISEASE: NO LIVER DISEASE: NO KIDNEY DISEASE: NOSTERIOD USE: NONEUROLOGICAL DISEASE: NOBACK PROBLEMS: YES, PAINEXTREMITIES: NOGENITOURINARY: NOBLEEDING DISORDER: NOASA CLASS: IAIRWAY CLASS: II. VITAL SIGNS WT 198.2 LBS, HT 65 IN, BMI 32.98 INDEX, BP 130/86 MM HG, HR 79 /MIN, RR 18 /MIN, TEMP 97.7 F, OXYGEN SAT % 98%, SAFE IN ENV? (Y/N) YES, NA INITIALS AW 1515, REVIEWED BY: ADILSON. EXAMINATION GENERAL EXAMINATION: THE PATIENT IS ALERT, ORIENTED TIMES THREE AND COOPERATIVE. HEART SHOWS REGULAR RHYTHM, NO MURMURS AND NO GALLOPS. LUNGS ARE CLEAR TO AUSCULTATION. TENDERNESS OVER THE RIGHT GENITOFEMORAL AREA. 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 MEDICATION: FENTANYL CITRATE 50MCG IV (ORDERED FOR 01/17/2020)ROMULO SARKAR 01/09/2020 10:25:29 AM > LOT #: [id number], EXP: 06/2021 GIACOMO LIZAMA RN 01/09/2020 10:26:20 AM > VERIFIED ROMULO SARKAR 01/09/2020 10:30:19 AM > ADMINISTERED 25 MCG AT 0944, ADMINISTERED 25 MCG AT 0945. IV LACTATED RINGER'S AT KVO (ORDERED FOR 01/17/2020)ROMULO SARKAR 01/09/2020 10:33:03 AM > DONE PER ORDER. TOTAL 600 ML. CLINICAL NOTES: I DISCUSSED ALTERNATIVES WITH MR. RAO. HE HAS HAD MULTIPLE GENITOFEMORAL BLOCKS IN THE PAST. WE AGREE TO PERFORM A RIGHT GENITOFEMORAL NERVE BLOCK WITH IV SEDATION DUE TO ANXIETY AND DISCOMFORT ASSOCIATED WITH THE PROCEDURE. THE PATIENT UNDERSTANDS AND AGREES WITH THE PLAN. I, JANET LOPEZ, DOCUMENTED THE ABOVE INFORMATION ACTING A SCRIBE FOR DR. HERNANDEZ. I HAVE REVIEWED THE ABOVE DOCUMENT, WRITTEN BY JANET LOPEZ, COMMERCIAL CORRESPONDENT, AND I VERIFY THAT IT IS ACCURATE. PREVENTIVE MEDICINE PAIN CLINIC TEACHING: PROCEDURE TEACHING PRE-PROCEDURE INSTRUCTIONS GIVEN TO AND REVIEWED WITH PT AND HE VERBALIZED UNDERSTANDING. PROCEDURE CODES FA211 ESTABILISHED PATIENT [facility] FACILITY CHARGE [id number] OFFICE/OUTPATIENT VISIT EST DISPOSITION & COMMUNICATION FOLLOW UP RIGHT GENITOFEMORAL NERVE BLOCK TOMORROW MORNING (REASON: RIGHT GENITOFEMORAL NERVE BLOCK ) ELECTRONICALLY SIGNED BY ANGELINA HERNANDEZ MD, MD ON 01/09/2020 AT 02:51 PM EDT DISCLAIMER : THIS IS A VISIT SUMMARY EXTRACTED FROM THE [employer] CHART. IT IS NOT A COPY OF THE [employer] PROGRESS NOTE. [facility]
== END ==
LOC: M PAIN 15:15
PROVIDERS: ATTEND Anesthesiology
DX: G58.8 Other specified mononeuropathies (principal); R10.2 Pelvic and perineal pain; G57.90 Unspecified mononeuropathy of unspecified lower limb; E78.00 Pure hypercholesterolemia, unspecified; J45.909 Unspecified asthma, uncomplicated; G47.33 Obstructive sleep apnea (adult) (pediatric); Z87.891 Personal history of nicotine dependence; Z79.899 Other long term (current) drug therapy

== ENCOUNTER → 2020-01-09 | Outpatient (CLI) | payer MEDICARE, MEDICAID ==
[~2020-01-09] MED LIST changes: -BUPIVACAINE HCL 0.25% 30ML VIAL As Ordered ONE; +BUPIVACAINE HCL 0.25% 30ML VIAL ONE; -ISOVUE-M 300 61% 15ML VIAL As Ordered ONE; +ISOVUE-M 300 61% 15ML VIAL ONE; -LIDOCAINE 1% SDV 30ML VIAL As Ordered ONE; +LIDOCAINE 1% SDV 30ML VIAL ONE; -MIDAZOLAM INJ 2MG/2ML VIAL (J2250 PER 1MG) As Ordered ONE; +MIDAZOLAM INJ 2MG/2ML VIAL (J2250 PER 1MG) ONE; -TRIAMCINOLONE ACETONIDE SUSP 40 MG/ML VIAL (J3301) As Ordered ONE; +TRIAMCINOLONE ACETONIDE SUSP 40 MG/ML VIAL (J3301) ONE; -fentaNYL 100 MCG/2 ML INJECTION (J3010) As Ordered ONE; +fentaNYL 100 MCG/2 ML INJECTION (J3010) ONE
--- NOTE | 2020-01-16 14:18 | ECWPNPC ---
PATIENT NAME: OBED RAO : 1980 GENDER: MALE VISIT DATE: 01/09/2020 DISCHARGE DATE: 01/09/20 1048 VISIT LOCKED DATE TIME: PHYSICIAN: ANGELINA HERNANDEZ MD RESOURCE: ANGELINA HERNANDEZ MD REASON FOR APPOINTMENT 1. RIGHT GENOFEMORAL NERVE BLOCK W/ IV SEDATION HISTORY OF PRESENT ILLNESS GENERAL: -. FALL RISK SCREENING: SCREENING :NO FALLS REPORTED IN THE LAST YEAR PAIN SCREENING: PATIENT HAS A COMPLAINT OF ACUTE OR CHRONIC PAIN :YES LOCATION OF PAIN:OTHER: RIGHT GROIN INTENSITY OF PAIN (SCALE OF 1 TO 10):10 WHAT DOES YOUR PAIN FEEL LIKE:ACHING, SHARP, STABBING, THROBBING, SORE, SHOOTING DURATION:CONTINOUS, CONSTANT PAIN IS INCREASED BY:ACTIVITIES PAIN IS DECREASED BY:OTHERS INJECTION TREATMENT/MEDICATIONS USED TO MANAGE PAIN:NSAIDS LEVEL OF RELIEF FROM PAIN TREATMENTS IN THE PAST:100% PAIN HAS INTERFERED WITH THE FOLLOWING: SEXUAL ACTIVITY NURSING NOTE: -. PAIN CENTER INTAKE QUESTIONS: DO YOU HAVE A HISTORY OF MRSA? :NO DO YOU TAKE A BLOOD THINNERS? :NO DO YOU HAVE ANY BLEEDING DISORDERS? :NO ANY NEW NUMBNESS OR WEAKNESS IN YOUR LEGS OR ARMS? :NO ANY PACEMAKER,DEFIBRILLATOR, OR DORSAL COLUMN STIMULATOR? :NO DO YOU HAVE ANY RASHES OR OPEN SORES? :NO ARE YOU ALLERGIC TO IV DYE? :NO ARE YOU DIABETIC? :NO ANY NEW PROBLEMS WITH YOUR MEDICATIONS? :NO HAVE YOU RECEIVED A VACCINE IN THE PAST 30 DAYS? :NO DO YOU PLAN TO RECEIVE A VACCINE IN THE NEXT 21 DAYS? :NO DO YOU TAKE ANY IMMUNOSUPPRESSIVE MEDICATIONS? :NO ANY HISTORY OF SEIZURES? :NO ANY HISTORY OF CARDIAC ISSUES OR EVENTS? :NO DO YOU HAVE SLEEP APNEA? :YES DO YOU WEAR A CPAP? AUTO PAP ANY RECENT HEAD INJURY? :NO DO YOU HAVE ANY NEW INFECTIONS? :NO IS THERE A CHANCE YOU COULD BE ? :NO ARE YOU BREAST FEEDING? :NO WHEN DID YOU LAST EAT? : -01/08 2000 WHEN DID YOU LAST DRINK? : -01/08 2000 WHAT DID YOU LAST DRINK? : -WATER NAME OF PERSON DRIVING YOU HOME? : -MOM DO YOU HAVE ANY OTHER QUESTIONS OR CONCERNS? : - CURRENT MEDICATIONS TAKING PROPRANOLOL HCL 20 MG TABLET 1 TABLET ORALLY TWICE A DAY, NOTES: 01/08 2000 TAKING PRIMIDONE 50 MG TABLET 1 ORALLY PO BID, NOTES: 1999 TAKING DEPAKOTE ER 500 MG TABLET EXTENDED RELEASE 24 HOUR 1 TABLET ORALLY THREE TIMES DAILY, NOTES: 01/08 1200 TAKING VITAMIN C 500 MG TABLET CHEWABLE 1 TABLET ORALLY ONCE A DAY- OTC, NOTES: 01/07 1000 TAKING EXCEDRIN TENSION HEADACHE 500-65 MG TABLET 2 TABLETS NEEDED ORALLY THREE TIMES A DAY, NOTES: 2 WKS TAKING OMEPRAZOLE 40 MG CAPSULE DELAYED RELEASE 1 CAPSULE ORALLY BID, NOTES: 01/08 2000 TAKING SIMVASTATIN 40 MG TABLET 1 TABLET IN THE EVENING ORALLY ONCE A DAY, NOTES: 01/08 2000 TAKING FLONASE ALLERGY RELIEF 50 MCG/ACT SUSPENSION 1 SPRAY IN EACH NOSTRIL NASALLY ONCE A DAY, NOTES: 01/08 2000 TAKING MONTELUKAST SODIUM 10 MG TABLET 1 TABLET ORALLY ONCE A DAY, NOTES: 01/08 2000 TAKING AYR SALINE NASAL NETI RINSE 1.57 GM PACKET DIRECTED NASALLY DAILY, NOTES: 01/08 2000 TAKING ALBUTEROL SULFATE HFA 108 (90 BASE) MCG/ACT AEROSOL SOLUTION 2 PUFFS NEEDED INHALATION EVERY 6 HRS, NOTES: 2 WKS TAKING VITAMIN D 50 MCG (2000 UT) CAPSULE 1 CAPSULE ORALLY ONCE A DAY, NOTES: 01/05 TAKING AYANNA ALLERGY 180 MG TABLET 1 TABLET NEEDED ORALLY ONCE A DAY, NOTES: 01/07 1000 TAKING NICORETTE 4 MG GUM 1 PIECE FOR 30 MINUTE NEEDED MOUTH/THROAT 24 TIME(S) A DAY, NOTES: 01/07 TAKING RELPAX 20 MG TABLET 1 TABLET ORALLY ONCE A DAY, NOTES: 01/05 TAKING GABAPENTIN 100 MG CAPSULE 2 CAP ORALLY FOR PAIN TID, NOTES: 01/08 2000 TAKING AIMOVIG 70 MG/ML SOLUTION AUTO-INJECTOR DIRECTED SUBCUTANEOUS , NOTES: 12/30 TAKING GUANFACINE HCL 1 MG TABLET 1 TABLET AT BEDTIME ORALLY ONCE A DAY, NOTES: 01/07 1000 NOT-TAKING BOTOX 100 UNIT SOLUTION RECONSTITUTED DIRECTED INJECTION EVERY MONTH NOT-TAKING NICOTROL 10 MG INHALER 1 CARTRIDGE NEEDED INHALATION 16 TIME(S) A DAY NOT-TAKING AMOXICILLIN 500 MG CAPSULE 1 CAPSULE ORALLY EVERY 12 HRS NOT-TAKING CYMBALTA 60 MG CAPSULE DELAYED RELEASE PARTICLES 1 CAPSULE ORALLY FOR PAIN DAILY NOT-TAKING HIBICLENS 4 % LIQUID DIRECTED EXTERNALLY DAILY AT PELVIC AREA NOT-TAKING CETIRIZINE HCL 10 MG TABLET 1 TABLET ORALLY ONCE A DAY NOT-TAKING ZOLMITRIPTAN 5 MG TABLET 1 TABLET NEEDED ONE TIME ORALLY ONCE A DAY NOT-TAKING SUCRALFATE 1 GM TABLET ORAL DIRECTED NOT-TAKING PERCOCET 10-325 MG TABLET 1 TABLET NEEDED ORALLY EVERY 6 HRS, NOTES: FOR SINUS SURGERY NOT-TAKING KEFLEX 500 MG CAPSULE 1 CAPSULE ORALLY EVERY 12 HRS MEDICATION LIST REVIEWED AND RECONCILED WITH THE PATIENT PAST MEDICAL HISTORY HIGH CHOLESTEROL BIPOLAR ADHD ALLERGIES ASTHMA SLEEP APNEA 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 COLONOSCOPY 03/2018: MILD NONSPECIFIC CHRONIC INFLAMMATION NOTED ON BIOPSY, NO ACTIVE COLITIS, DYSPLASIA OR GRANULOMA IDENTIFIED EGD 03/2018: MILD CHRONIC GASTRITIS NOTED ON BIOPSY, NO H-PYLORI RIANNA: MANAGED BY NEUROLOGY SCROTAL PAIN ED- FOLLOWING WITH UROLOGY MIHIR VARICOSE VIENS TESTICLES- UROLOGY MIHIR TREMORS SINUS INFECTION ALLERGIES SEASONAL ALLERGIES: SNEEZING, COUGHING - ALLERGY SURGICAL HISTORY PERIANAL ABCESS X2 - MIHIR, DR DEMARCO SCHAFER 10/2015 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 - MIHIR, (?REACTION TO DYE) 12/2015 R SHOULDER ROTATOR CUFF, SOS 2017 ALL UPPER TEETH EXT, TAI DENTAL, 2018 VASECTOMY- [facility]/UROLOGY, WITH SEVERE SCAR TISSUE 2018 ENDOSCOPY UPPER AND LOWER, WITH BX-[facility], ADDITIONAL TESTING 03/2018 SINUS SURGERY- POLYP FAMILY HISTORY FATHER: 80 YRS, DIAGNOSED WITH OTHER MALIGNANT NEOPLASM OF UNSPECIFIED SITE MOTHER: ALIVE 54 YRS, HYPERTENSION SIBLINGS: UNKNOWN SON(S): ALIVE DAUGHTER(S): ALIVE 1 YRS PATERNAL GRAND FATHER: UNKNOWN PATERNAL GRAND MOTHER: UNKNOWN MATERNAL GRAND FATHER: 65 YRS, HYPERTENSION, UNSPECIFIED HEART DISEASE, DIABETES MATERNAL GRAND MOTHER: 68 YRS, HYPERTENSION, UNSPECIFIED HEART DISEASE 1 SON(S) , 1 DAUGHTER(S) - HEALTHY. - HTN, HIGH CHOLESTEROL, ALLERGIES, ASTHMA, 1YR DAUGHTER, 1MONTH OLD SON- NO KNOWN RAGHAVENDRA ISSUES, MATERNAL GRANDPARENTS- GRANDMOTHER 65, DM, HEART, CHOLESTEROL, HTN, PARKINSONS,GRANDFATHER- 68 HEART DISEASE, HTN, NADIA CHOLESTEROL, COUGH-THROAT CLOSING-ISSUES. SOCIAL HISTORY GENERAL: TOBACCO USE ARE YOU A:FORMER SMOKER NICOTINE GUM HOW LONG HAS IT BEEN SINCE YOU LAST SMOKED?6-12 MONTHS SMOKING CESSATION INFORMATION GIVEN06/06/2019 LATEX QUESTIONNAIRE LATEX ALLERGY : HAVE YOU EVER DEVELOPED ANY TYPE OF REACTION AFTER HANDLING LATEX PRODUCTS SUCH RUBBER GLOVES, CONDOMS, DIAPHRAGMS, BALLOONS, SOCKS, OR UNDERWEAR?NO LATEX ALLERGY : HAVE YOU EVER DEVELOPED ANY TYPE OF REACTION DURING OR AFTER DENTAL APPOINTMENT, VAGINAL/RECTAL EXAMINATION, SURGICAL PROCEDURE, OR ANY OTHER EXPOSURE?NO LATEX RISK : HAVE YOU EVER HAD ANY DIFFICULTY BREATHING OR HIVES AFTER EATING OR HANDLING ANY FRUITS, OR VEGETABLES; SUCH KIWI, BANANAS, STONE FRUITS, OR CHESTNUTSNO LATEX RISK : DO YOU HAVE A PREVIOUS PERSONAL HISTORY OF MORE THAN NINE SURGERIES, SPINA BIFIDA, OR REPEATED CATHERIZATIONS? YES - PLEASE INDICATE : > 9 SURGERIES LATEX RISK : ARE YOU FREQUENTLY EXPOSED TO LATEX PRODUCTS IN YOUR OCCUPATION?NO DATE ASKED : 10/15/2019 ALCOHOL SCREENING DID YOU HAVE A DRINK CONTAINING ALCOHOL IN THE PAST YEAR?YES HOW OFTEN DID YOU HAVE A DRINK CONTAINING ALCOHOL IN THE PAST YEAR?MONTHLY OR LESS (1 POINT) HOW MANY DRINKS DID YOU HAVE ON A TYPICAL DAY WHEN YOU WERE DRINKING IN THE PAST YEAR?1 OR 2 (0 POINTS) HOW OFTEN DID YOU HAVE SIX OR MORE DRINKS ON ONE OCCASION IN THE PAST YEAR?NEVER (0 POINTS) POINTS1 INTERPRETATIONNEGATIVE RECREATIONAL DRUG USE DRUG USE?NO DENIES 09/02/19 CAFFEINE CAFFEINE USE?NO PEPSI 3 BOTTLES A DAY SEXUAL HX HAD SEX IN THE LAST 12 MONTHS (VAGINAL, ORAL, OR ANAL)?YES WITHWOMEN ONLY PREVENTION STRATEGIES DISCUSSED:OTHER USE PROTECTION?NO HAVE YOU EVER HAD AN STD?NO HIV / HEP-C SCREENING HIV TEST OFFERED TO PATIENT:YES DATE OFFERED:05/01/2017 TEST ACCEPTED:NO REASON:PATIENT DECLINED JEWISH [id number] ISLAM LANGUAGE LANGUAGES SPOKEN:CANADIAN EDUCATION LEVEL OF EDUCATION:HIGH SCHOOL LEARNING BARRIERS / SPECIAL NEEDS CHANGE FROM LAST VISIT?NO BARRIERS TO LEARNING?NO HEARING IMPAIRED?NO VISION IMPAIRED?YES COGNITIVELY IMPAIRED?NO :CORRECTIVE LENSES READINESS TO LEARN?YES LEARNING PREFERENCES?NO LEARNING CAPABILITIES PRESENT?YES EMOTIONAL BARRIERS?NO SPECIAL DEVICES?NO CONDENSER SETTER NEEDED?NO DOMESTIC VIOLENCE DO YOU FEEL SAFE IN YOUR ENVIRONMENT?YES OCCUPATION: UNEMPLOYED. DIET: REGULAR. EXERCISE: DAILY, WALKS. MARITAL STATUS: SINGLE. OTHERS AT HOME: CHILDREN. PAIN CLINIC PFS, CLERGY, PUBLIC HEALTH REFERRALS WAS THE PROVIDER NOTIFIED OF ANY PERTINENT INFO?YES HAS THE PATIENT BEEN EDUCATED REGARDING HIS/HER PLAN OF CARE?YES HAS THE PATIENT BEEN EDUCATED REGARDING PAIN, THE RISK FOR PAIN, THE IMPORTANCE OF EFFECTIVE PAIN MANAGEMENT, AND THE PAIN ASSESSMENT PROCESS?YES ADVANCE DIRECTIVE ADVANCE DIRECTIVE DISCUSSED WITH PATIENT:YES PT DOES NOT HAVE HCP AND DECLINES INFO AND ASSISTANCE AT THIS TIME. HOSPITALIZATION/MAJOR DIAGNOSTIC PROCEDURE SURIGCAL RELATED SMC CELLULITIS RIGHT GROIN WITH ABSCESS 10/06-10/09/17 VITAL SIGNS WT 198.2 LBS, HT 65 IN, BMI 32.98 INDEX, BP 120/82 MM HG, HR 75 /MIN, RR 18 /MIN, TEMP 97.6 F, OXYGEN SAT % 97%, SAFE IN ENV? (Y/N) Y, NA INITIALS AW 0816, REVIEWED BY: DARION. EXAMINATION GENERAL EXAMINATION: THE PATIENT IS ALERT, ORIENTED TIMES THREE AND COOPERATIVE. HEART SHOWS REGULAR RHYTHM, NO MURMURS AND NO GALLOPS. LUNGS ARE CLEAR TO AUSCULTATION. 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 MEDICATION: VERSED 1MG IV (MIDAZOLAM)ROMULO SARKAR 01/09/2020 10:24:42 AM > LOT #: [id number], EXP: 05/2022 GIACOMO LIZAMA RN 01/09/2020 10:25:19 AM > VERIFIED ROMULO SARKAR 01/09/2020 10:28:17 AM > ADMINISTERED AT 0944. MEDICATION: FENTANYL CITRATE 50MCG IV ROMULO SARKAR 01/09/2020 10:25:29 AM > LOT #: [id number], EXP: 06/2021 GIACOMO LIZAMA RN 01/09/2020 10:26:20 AM > VERIFIED ROMULO SARKAR 01/09/2020 10:30:19 AM > ADMINISTERED 25 MCG AT 0944, ADMINISTERED 25 MCG AT 0945. IV LACTATED RINGER'S AT KVROMULO UNDERWOOD 01/09/2020 10:33:03 AM > DONE PER ORDER. TOTAL 600 ML. OTHERS CLINICAL NOTES: 01/08/20 PAT DONE Robbie FLOREZ WELL DRILL OPERATOR ROTARY DRILL. PROCEDURES PAIN NURSING RECORD PRE-PROCEDURE IV SITE LEFT ANTECUBITAL #22 IV INITIATED ON 2ND ATTEMPT BY Javy LIZAMA RN, IV STARTED # 22, IV STARTED BY: Desmond LIZAMA RN, IV ATTEMPTS 2 PROCEDURE IN ROOM 0915, PHYSICIAN IN ROOM 0940, START 0954, FINISH 1007, PHYSICIAN OUT OF ROOM 1008, OUT OF ROOM 1016, STEROID KENALOG 40 MG, O2 NC 2 LPM, ECG OTHER SINUS ZAY, PATIENT SHIELDED NO, SAFETY STRAP YES, PREP CHLOROPREP Candis HESTER RN, IV INFUSED LACTATED RINGERS, DRESSING TEGADERM BY DR HERNANDEZ LOC: GIACOMO LIZAMA RN 01/09/2020 9:46:49 AM > 1. ALERT, ORIENTED GIACOMO LIZAMA RN 01/09/2020 10:01:17 AM > , 2. DROWSY, RESPONDS APPROPRIATELY , GIACOMO LIZAMA RN 01/09/2020 10:31:56 AM > , 1. ALERT, ORIENTED RESP: GIACOMO LIZAMA RN 01/09/2020 9:46:54 AM > 1. REGULAR, NO DYSPNEA COLOR: GIACOMO LIZAMA RN 01/09/2020 9:46:58 AM > 1. PINK SKIN: GIACOMO LIZAMA RN 01/09/2020 9:47:03 AM > 1. WARM, DRY POSITION: GIACOMO LIZAMA RN 01/09/2020 9:47:08 AM > 2. SUPINE VITALS: GIACOMO LIZAMA RN 01/09/2020 9:40:14 AM > 143/90, 58, 18 100% , GIACOMO LIZAMA RN 01/09/2020 9:45:11 AM > 133/83, 63, 18, 100% , GIACOMO LIZAMA RN 01/09/2020 9:50:28 AM > 127/80, 59, 18, 98% , GIACOMO LIZAMA RN 01/09/2020 9:55:37 AM > 125/80, 58, 18, 99% , GIACOMO LIZAMA RN 01/09/2020 10:00:12 AM > 127/82, 59, 18, 99% GIACOMO LIZAMA RN 01/09/2020 10:05:58 AM > 130/82, 59, 18, 97% , GIACOMO LIZAMA RN 01/09/2020 10:16:10 AM > 137/87, 70, 18, 98% (DISCHARGE) DISCHARGE: POST PAIN 0/10, DRESSING SITE DRY AND INTACT, IV DISCONTINUED, SITE CLEAR, CATHETER INTACT IV ACCESS DC'D, PRESSURE APPLIED, CLEAR DRESSING IN PLACE, PT TOLERATED WELL., GAIT WHEELCHAIR, TEACHING COMPLETED, PATIENT ACKNOWLEDGES UNDERSTANDING YES, PATIENT DISCHARGED AT 1035 PRE PROCEDURE DIAGNOSIS RIGHT GENITOFEMORAL NEURALGIA POST PROCEDURE DIAGNOSIS RIGHT GENTIOFEMORAL NEURALGIA PROCEDURE GENITOFEMORAL NERVE BLOCK SURGEON DR. ANGELINA HERNANDEZ CRYSTAL MOUNTER NONE ANESTHESIA LOCAL WITH IV SEDATION PRE PROCEDURE NOTE I WENT THROUGH THE RISKS, ALTERNATIVES, AND BENEFITS ASSOCIATED WITH THIS PROCEDURE AND THE PATIENT EXPRESSED THAT HE WOULD LIKE TO PROCEED. I DISCUSSED THAT THE USE OF STEROIDS MAY CONTRIBUTE TO IMMUNOSUPPRESSION OF THE PATIENT'S BODY AGAINST INFECTIONS SUCH COVID-19. THE PATIENT IS AWARE OF THE POTENTIAL COMPLICATIONS ASSOCIATED WITH THIS VIRUS, INCLUDING, BUT NOT LIMITED TO, . THE PATIENT WOULD LIKE TO MOVE FORWARD WITH IV SEDATION DUE TO DISCOMFORT, PAIN AND ANXIETY ASSOCIATED WITH THE PROCEDURE. THE PATIENT IS COVID-19 NEGATIVE DESCRIPTION OF PROCEDURE AFTER CONSENT WAS SIGNED, THE PATIENT WAS BROUGHT TO THE PROCEDURE ROOM AND PLACED IN THE SUPINE POSITION. A TIMEOUT WAS PERFORMED WHERE LATERALITY AND THE SITE OF THE PROCEDURE WERE CHECKED AND CONFIRMED WITH EVERYONE IN THE ROOM. THE RIGHT GENITOFEMORAL AREA WAS CLEANED WITH CHLORAPREP SOLUTION AND DRAPED ASEPTICALLY. THE PROCEDURE WAS DONE UNDER STERILE STANDARD TECHNIQUES. I CHECKED THE LOCATION OF THE FEMORAL ARTERY. I CONFIRMED AGAIN WITH EVERYONE IN THE ROOM THE LATERALITY OF THE TARGET AT 0954. THEN, WITH THE ASSISTANCE OF A NERVE STIMULATOR, I WENT APPROXIMATELY 1 INCH LATERAL TO THE SYMPHYSIS PUBIS, FIRST AT 3 VOLTS AND THEN AT 0.5 VOLTS. THE PATIENT WAS HAVING STIMULATION TOWARDS THE RIGHT TESTICLE WHERE HIS USUAL PAIN IS. WE INJECTED A TOTAL OF 20 ML OF BUPIVACAINE 0.125% AND KENALOG 40 MG. THE MEDICATIONS WERE VERIFIED WITH THE NURSE. THERE WAS NO EVIDENCE OF BLOOD, PARESTHESIA OR VISCERAL PUNCTURE. THERE WAS NO EVIDENCE OF ANY COMPLICATIONS. EBL LESS THAN 5 ML. THE PATIENT TOLERATED THE PROCEDURE WITHOUT COMPLICATIONS AND WAS SENT TO THE RECOVERY ROOM WHERE HE WAS MOVING HIS EXTREMITIES AND DOING WELL. A TOTAL OF VERSED 1 MG AND FENTANYL 50 MCG IV WAS GIVEN IN DIVIDED DOSES. FACE TO FACE START TIME 0944 END TIME 1008. TOTAL FACE-TO FACE TIME WAS 24 MINUTES POST PROCEDURE NOTE I WILL SEE THE PATIENT IN A FOLLOW UP IN THE NEXT FEW WEEKS. WE ARE LOOKING FOR LONG LASTING PAIN RELIEF WITH THIS INTERVENTION. THERE WERE NO COMPLICATIONS. INSTRUCTIONS WERE GIVEN, QUESTIONS WERE ANSWERED, AND THE PATIENT REPORTS UNDERSTANDING AND AGREES. I, JANET LOPEZ, DOCUMENTED THE ABOVE INFORMATION ACTING A SCRIBE FOR DR. HERNANDEZ. I HAVE REVIEWED THE ABOVE DOCUMENT, WRITTEN BY JANET LOPEZ, TRUCK RENTAL MANAGER, AND I VERIFY THAT IT IS ACCURATE. PREVENTIVE MEDICINE PAIN CLINIC TEACHING: THE PATIENT HAS BEEN EDUCATED REGARDING HIS/HER PLAN OF CARE : WRITTEN AND VERBAL INSTRUCTION REVIEWED AND GIVEN TO PATIENT, PT VERBALIZED UNDERSTANDING. DS PROCEDURE CODES 86042 N BLOCK INJ ILIO-ING/HYPOGI, [place]IFI[place]: [place] [address] MOD SED SAME PHYS/QHP 5/>YRS 22130 MOD SED SAME PHYS/QHP EA DISPOSITION & COMMUNICATION FOLLOW UP FOLLOW UP WITH SLASHER HAND (REASON: POST RIGHT GENITOFEMORAL ) ELECTRONICALLY SIGNED BY ANGELINA HERNANDEZ MD, MD ON 01/16/2020 AT 11:34 AM EDT DISCLAIMER : THIS IS A VISIT SUMMARY EXTRACTED FROM THE [employer] CHART. IT IS NOT A COPY OF THE [employer] PROGRESS NOTE. SHARLAD
== END ==
LOC: M PAIN 08:00
PROVIDERS: ATTEND Anesthesiology
DX: G58.8 Other specified mononeuropathies (principal); J45.909 Unspecified asthma, uncomplicated; G47.33 Obstructive sleep apnea (adult) (pediatric); F17.290 Nicotine dependence, other tobacco product, uncomplicated; Z86.59 Personal history of other mental and behavioral disorders; Z79.899 Other long term (current) drug therapy
CPT/HCPCS: 64425; 99152; 99153; J2250; J3010; J3301; Q9967

== ENCOUNTER → 2020-01-30 | Outpatient (CLI) | payer MEDICARE, MEDICAID ==
[~2020-01-30] MED LIST changes: -BUPIVACAINE HCL 0.25% 30ML VIAL ONE; -ISOVUE-M 300 61% 15ML VIAL ONE; -LIDOCAINE 1% SDV 30ML VIAL ONE; -MIDAZOLAM INJ 2MG/2ML VIAL (J2250 PER 1MG) ONE; -TRIAMCINOLONE ACETONIDE SUSP 40 MG/ML VIAL (J3301) ONE; -fentaNYL 100 MCG/2 ML INJECTION (J3010) ONE
--- NOTE | 2020-02-01 01:17 | ECWPNPC ---
PATIENT NAME: OBED RAO : 1980 GENDER: MALE VISIT DATE: 01/30/2020 DISCHARGE DATE: 01/30/20 1423 VISIT LOCKED DATE TIME: PHYSICIAN: BROCK QUIGLEY RESOURCE: BROCK QUIGLEY REASON FOR APPOINTMENT 1. POST RIGHT GENOFEMORAL NERVE BLOCK W/ IV SED HISTORY OF PRESENT ILLNESS DEPRESSION SCREENING: PHQ-2 (2015 EDITION) LITTLE INTEREST OR PLEASURE IN DOING THINGS?NOT AT ALL FEELING DOWN, DEPRESSED, OR HOPELESS?NOT AT ALL TOTAL SCORE0 GENERAL: OBED IS BEING SEEN FOR POST PROCEDURE FOLLOW-UP. HAD RIGHT GENITOFEMORAL BLOCK ON THE RIGHT SIDE WITH IV SEDATION ON 01/09/2020. REPORTING MARKED REDUCTION IN RIGHT GROIN PAIN SINCE PROCEDURE THAT CONTINUES TODAY. REPORTING SEVERE INCREASE IN LOW BACK PAIN OVER THE PAST FEW DAYS. STATES HIS CHRONIC BACK ISSUE WAS ACTING UP BUT THEN WHEN HE WAS WORKING THE OTHER DAY HE JUMPED FROM OVER 5 FOOT HEIGHT AND LANDED ON HIS FEET AND SINCE THEN HAS HAD SIGNIFICANT INCREASE IN LOW BACK PAIN. DENIES RADICULAR SYMPTOMS. DENIES BOWEL OR BLADDER INCONTINENCE. NO RECENT MRI IMAGING. HE WOULD HAVE TO HAVE AN OPEN MRI. - -. FALL RISK SCREENING: SCREENING :NO FALLS REPORTED IN THE LAST YEAR NONE PAIN SCREENING: PATIENT HAS A COMPLAINT OF ACUTE OR CHRONIC PAIN :YES LOCATION OF PAIN:LOW BACK INTENSITY OF PAIN (SCALE OF 1 TO 10):10 WHAT DOES YOUR PAIN FEEL LIKE:ACHING, SHARP, STABBING, TENDER, THROBBING DURATION:CONTINOUS PAIN IS INCREASED BY:ACTIVITIES PAIN IS DECREASED BY:USE OF PAIN MEDICATIONS, OTHERS INJECTIONS NURSING NOTE: - -. PAIN CENTER INTAKE QUESTIONS: DO YOU HAVE A HISTORY OF MRSA? :NO DO YOU TAKE A BLOOD THINNERS? :NO DO YOU HAVE ANY BLEEDING DISORDERS? :NO ANY NEW NUMBNESS OR WEAKNESS IN YOUR LEGS OR ARMS? :NO ANY PACEMAKER,DEFIBRILLATOR, OR DORSAL COLUMN STIMULATOR? :NO DO YOU HAVE ANY RASHES OR OPEN SORES? :NO ARE YOU ALLERGIC TO IV DYE? :NO ARE YOU DIABETIC? :NO ANY NEW PROBLEMS WITH YOUR MEDICATIONS? :NO HAVE YOU RECEIVED A VACCINE IN THE PAST 30 DAYS? :YES FLU VAC DO YOU PLAN TO RECEIVE A VACCINE IN THE NEXT 21 DAYS? :NO DO YOU NEED ANY PRESCRIPTION? :NO DO YOU TAKE ANY IMMUNOSUPPRESSIVE MEDICATIONS? :NO IS THERE A CHANCE YOU COULD BE ? :NO ARE YOU BREAST FEEDING? :NO CURRENT MEDICATIONS TAKING PROPRANOLOL HCL 20 MG TABLET 1 TABLET ORALLY TWICE A DAY, NOTES: 01/08 2000 TAKING PRIMIDONE 50 MG TABLET 1 ORALLY PO BID, NOTES: 1999 TAKING DEPAKOTE ER 500 MG TABLET EXTENDED RELEASE 24 HOUR 1 TABLET ORALLY THREE TIMES DAILY, NOTES: 01/08 1200 TAKING VITAMIN C 500 MG TABLET CHEWABLE 1 TABLET ORALLY ONCE A DAY- OTC, NOTES: 01/07 1000 TAKING EXCEDRIN TENSION HEADACHE 500-65 MG TABLET 2 TABLETS NEEDED ORALLY THREE TIMES A DAY, NOTES: 2 WKS TAKING OMEPRAZOLE 40 MG CAPSULE DELAYED RELEASE 1 CAPSULE ORALLY BID, NOTES: 01/08 2000 TAKING SIMVASTATIN 40 MG TABLET 1 TABLET IN THE EVENING ORALLY ONCE A DAY, NOTES: 01/08 2000 TAKING FLONASE ALLERGY RELIEF 50 MCG/ACT SUSPENSION 1 SPRAY IN EACH NOSTRIL NASALLY ONCE A DAY, NOTES: 01/08 2000 TAKING MONTELUKAST SODIUM 10 MG TABLET 1 TABLET ORALLY ONCE A DAY, NOTES: 01/08 2000 TAKING AYR SALINE NASAL NETI RINSE 1.57 GM PACKET DIRECTED NASALLY DAILY, NOTES: 01/08 2000 TAKING ALBUTEROL SULFATE HFA 108 (90 BASE) MCG/ACT AEROSOL SOLUTION 2 PUFFS NEEDED INHALATION EVERY 6 HRS, NOTES: 2 WKS TAKING VITAMIN D 50 MCG (2000 UT) CAPSULE 1 CAPSULE ORALLY ONCE A DAY, NOTES: 01/05 TAKING AYANNA ALLERGY 180 MG TABLET 1 TABLET NEEDED ORALLY ONCE A DAY, NOTES: 01/07 1000 TAKING NICORETTE 4 MG GUM 1 PIECE FOR 30 MINUTE NEEDED MOUTH/THROAT 24 TIME(S) A DAY, NOTES: 01/07 TAKING RELPAX 20 MG TABLET 1 TABLET ORALLY ONCE A DAY, NOTES: 01/05 TAKING GABAPENTIN 100 MG CAPSULE 2 CAP ORALLY FOR PAIN TID, NOTES: 01/08 2000 TAKING AIMOVIG 70 MG/ML SOLUTION AUTO-INJECTOR DIRECTED SUBCUTANEOUS , NOTES: 12/30 TAKING GUANFACINE HCL 1 MG TABLET 1 TABLET AT BEDTIME ORALLY ONCE A DAY, NOTES: 01/07 1000 NOT-TAKING BOTOX 100 UNIT SOLUTION RECONSTITUTED DIRECTED INJECTION EVERY MONTH NOT-TAKING NICOTROL 10 MG INHALER 1 CARTRIDGE NEEDED INHALATION 16 TIME(S) A DAY NOT-TAKING AMOXICILLIN 500 MG CAPSULE 1 CAPSULE ORALLY EVERY 12 HRS NOT-TAKING CYMBALTA 60 MG CAPSULE DELAYED RELEASE PARTICLES 1 CAPSULE ORALLY FOR PAIN DAILY NOT-TAKING HIBICLENS 4 % LIQUID DIRECTED EXTERNALLY DAILY AT PELVIC AREA NOT-TAKING CETIRIZINE HCL 10 MG TABLET 1 TABLET ORALLY ONCE A DAY NOT-TAKING ZOLMITRIPTAN 5 MG TABLET 1 TABLET NEEDED ONE TIME ORALLY ONCE A DAY NOT-TAKING SUCRALFATE 1 GM TABLET ORAL DIRECTED NOT-TAKING PERCOCET 10-325 MG TABLET 1 TABLET NEEDED ORALLY EVERY 6 HRS, NOTES: FOR SINUS SURGERY NOT-TAKING KEFLEX 500 MG CAPSULE 1 CAPSULE ORALLY EVERY 12 HRS MEDICATION LIST REVIEWED AND RECONCILED WITH THE PATIENT PAST MEDICAL HISTORY HIGH CHOLESTEROL BIPOLAR ADHD ALLERGIES ASTHMA SLEEP APNEA 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 COLONOSCOPY 03/2018: MILD NONSPECIFIC CHRONIC INFLAMMATION NOTED ON BIOPSY, NO ACTIVE COLITIS, DYSPLASIA OR GRANULOMA IDENTIFIED EGD 03/2018: MILD CHRONIC GASTRITIS NOTED ON BIOPSY, NO H-PYLORI RIANNA: MANAGED BY NEUROLOGY SCROTAL PAIN ED- FOLLOWING WITH UROLOGY CARTHAGE 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 INFECTION ALLERGIES SEASONAL ALLERGIES: SNEEZING, COUGHING - ALLERGY SURGICAL HISTORY PERIANAL ABCESS X2 - MIHIR, DR DEMARCO SCHAFER 10/2015 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 - MIHIR, (?REACTION TO DYE) 12/2015 R SHOULDER ROTATOR CUFF, SOS 2017 ALL UPPER TEETH EXT, TAI DENTAL, 2018 VASECTOMY- [facility]/UROLOGY, WITH SEVERE SCAR TISSUE 2018 ENDOSCOPY UPPER AND LOWER, WITH BX-[facility], ADDITIONAL TESTING 03/2018 SINUS SURGERY- POLYP FAMILY HISTORY FATHER: 80 YRS, DIAGNOSED WITH OTHER MALIGNANT NEOPLASM OF UNSPECIFIED SITE MOTHER: ALIVE 54 YRS, HYPERTENSION SIBLINGS: UNKNOWN SON(S): ALIVE DAUGHTER(S): ALIVE 1 YRS PATERNAL GRAND FATHER: UNKNOWN PATERNAL GRAND MOTHER: UNKNOWN MATERNAL GRAND FATHER: 65 YRS, HYPERTENSION, UNSPECIFIED HEART DISEASE, DIABETES MATERNAL GRAND MOTHER: 68 YRS, HYPERTENSION, UNSPECIFIED HEART DISEASE 1 SON(S) , 1 DAUGHTER(S) - HEALTHY. - HTN, HIGH CHOLESTEROL, ALLERGIES, ASTHMA, 1YR DAUGHTER, 1MONTH OLD SON- NO KNOWN RAGHAVENDRA ISSUES, MATERNAL GRANDPARENTS- GRANDMOTHER 65, DM, HEART, CHOLESTEROL, HTN, PARKINSONS,GRANDFATHER- 68 HEART DISEASE, HTN, NADIA CHOLESTEROL, COUGH-THROAT CLOSING-ISSUES. SOCIAL HISTORY GENERAL: TOBACCO USE ARE YOU A:FORMER SMOKER NICOTINE GUM HOW LONG HAS IT BEEN SINCE YOU LAST SMOKED?6-12 MONTHS SMOKING CESSATION INFORMATION GIVEN06/06/2019 LATEX QUESTIONNAIRE LATEX ALLERGY : HAVE YOU EVER DEVELOPED ANY TYPE OF REACTION AFTER HANDLING LATEX PRODUCTS SUCH RUBBER GLOVES, CONDOMS, DIAPHRAGMS, BALLOONS, SOCKS, OR UNDERWEAR?NO LATEX ALLERGY : HAVE YOU EVER DEVELOPED ANY TYPE OF REACTION DURING OR AFTER DENTAL APPOINTMENT, VAGINAL/RECTAL EXAMINATION, SURGICAL PROCEDURE, OR ANY OTHER EXPOSURE?NO LATEX RISK : HAVE YOU EVER HAD ANY DIFFICULTY BREATHING OR HIVES AFTER EATING OR HANDLING ANY FRUITS, OR VEGETABLES; SUCH KIWI, BANANAS, STONE FRUITS, OR CHESTNUTSNO LATEX RISK : DO YOU HAVE A PREVIOUS PERSONAL HISTORY OF MORE THAN NINE SURGERIES, SPINA BIFIDA, OR REPEATED CATHERIZATIONS? YES - PLEASE INDICATE : > 9 SURGERIES LATEX RISK : ARE YOU FREQUENTLY EXPOSED TO LATEX PRODUCTS IN YOUR OCCUPATION?NO DATE ASKED : 01/30/2020 ALCOHOL SCREENING DID YOU HAVE A DRINK CONTAINING ALCOHOL IN THE PAST YEAR?YES HOW OFTEN DID YOU HAVE SIX OR MORE DRINKS ON ONE OCCASION IN THE PAST YEAR?NEVER (0 POINTS) HOW MANY DRINKS DID YOU HAVE ON A TYPICAL DAY WHEN YOU WERE DRINKING IN THE PAST YEAR?1 OR 2 (0 POINTS) HOW OFTEN DID YOU HAVE A DRINK CONTAINING ALCOHOL IN THE PAST YEAR?MONTHLY OR LESS (1 POINT) POINTS1 INTERPRETATIONNEGATIVE RECREATIONAL DRUG USE DRUG USE?NO DENIES 09/02/19 CAFFEINE CAFFEINE USE?NO PEPSI 3 BOTTLES A DAY SEXUAL HX HAD SEX IN THE LAST 12 MONTHS (VAGINAL, ORAL, OR ANAL)?YES WITHWOMEN ONLY PREVENTION STRATEGIES DISCUSSED:OTHER USE PROTECTION?NO HAVE YOU EVER HAD AN STD?NO HIV / HEP-C SCREENING HIV TEST OFFERED TO PATIENT:YES DATE OFFERED:05/01/2017 TEST ACCEPTED:NO REASON:PATIENT DECLINED HINDU [id number] ZOROASTRIANISM LANGUAGE LANGUAGES SPOKEN:BENGALI EDUCATION LEVEL OF EDUCATION:HIGH SCHOOL LEARNING BARRIERS / SPECIAL NEEDS CHANGE FROM LAST VISIT?NO BARRIERS TO LEARNING?NO HEARING IMPAIRED?NO VISION IMPAIRED?YES COGNITIVELY IMPAIRED?NO :CORRECTIVE LENSES READINESS TO LEARN?YES LEARNING PREFERENCES?NO LEARNING CAPABILITIES PRESENT?YES EMOTIONAL BARRIERS?NO SPECIAL DEVICES?NO MATTRESS MAKER NEEDED?NO DOMESTIC VIOLENCE DO YOU FEEL SAFE IN YOUR ENVIRONMENT?YES OCCUPATION: UNEMPLOYED. DIET: REGULAR. EXERCISE: DAILY, WALKS. MARITAL STATUS: SINGLE. OTHERS AT HOME: CHILDREN. PAIN CLINIC PFS, CLERGY, PUBLIC HEALTH REFERRALS WAS THE PROVIDER NOTIFIED OF ANY PERTINENT INFO?YES HAS THE PATIENT BEEN EDUCATED REGARDING HIS/HER PLAN OF CARE?YES HAS THE PATIENT BEEN EDUCATED REGARDING PAIN, THE RISK FOR PAIN, THE IMPORTANCE OF EFFECTIVE PAIN MANAGEMENT, AND THE PAIN ASSESSMENT PROCESS?YES ADVANCE DIRECTIVE ADVANCE DIRECTIVE DISCUSSED WITH PATIENT:YES PT DOES NOT HAVE HCP AND DECLINES INFO AND ASSISTANCE AT THIS TIME. HOSPITALIZATION/MAJOR DIAGNOSTIC PROCEDURE SURIGCAL RELATED [facility] CELLULITIS RIGHT GROIN WITH ABSCESS 10/06-10/09/17 REVIEW OF SYSTEMS CONSTITUTIONAL: ANY RECENT FEVER NO . CHILLS NO . WEIGHT CHANGE OF UNKNOWN REASONS NO . GASTROENTEROLOGY: NEW UNEXPLAINABLE CHANGES IN BOWEL CONTROL NO . CONSTIPATION NO . GENITOURINARY: ANY NEW CHANGE IN BLADDER CONTROL? NO . NEUROLOGY: NEW ONSET DIZZINESS OR NEUROLOGICAL CHANGES NOT MENTIONED NO . NEW NUMBNESS OR PAIN PATTERNS NOT MENTIONED AND PERTINENT TO TODAY'S VISIT NO . CARDIOLOGY: NEW CHEST PRESSURE NO . NEW CHEST PAIN NO . RESPIRATORY: UNEXPLAINABLE COUGH NO . NEW SHORTNESS OF BREATH NO . VITAL SIGNS WT 190.2 LBS, HT 65 IN, BMI 31.65 INDEX, BP 125/71 MM HG, HR 71 /MIN, RR 18 /MIN, TEMP 98.0 F, OXYGEN SAT % 100%, SAFE IN ENV? (Y/N) YES, NA INITIALS AW 1317, REVIEWED BY: TARYN. EXAMINATION GENERAL EXAMINATION: GENERALNO ACUTE DISTRESS, WELL NOURISHED AND HYDRATED. PSYCHAPPROPRIATE MOOD AND AFFECT . FACE:UNREMARKABLE. NECK:NO LYMPHADENOPATHY, SUPPLE, . LUNGS:CLEAR TO AUSCULTATION BILATERALLY, NO WHEEZES, RHONCHI, RALES. HEART:NO MURMURS, REGULAR RATE AND RHYTHM. LUMBAR: MUSCLE STRENGTH TESTING 5/5 BILATERAL LOWER EXTREMITIES , PALPATION: POSITIVE FOR PAIN OVER L/S SPINE. POSITIVE FOR PAIN OVER L/S PARSPINALS. SPECIFIC POINT TENDERNESS NOTED OVER BILATERAL LUMBAR L4-5, L5-S1 FACETS. PAIN IS AGGRAVATED IN THIS AREA WITH FACET LOADING.. 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 02/17/20 AT 2 PM NOTES: PATIENT IS REQUESTING OPEN MRI IN [place] PREFERABLY ON 02/17/2020. OTHER CHRONIC PAIN PAIN PROCEDURE LOGDATE OF AALZHDASV95/15/20PROCEDURE:RIGHT GENITOFEMORAL NERVE BLOCKAMOUNT OF PRE SEDATEVERSED 1MG, FENTANYL 50MCGRESULT:IMPROVEMENT CONTINUES TODAY PROCEDURE CODES FA211 ESTABILISHED PATIENT [facility] FACILITY CHARGE DISPOSITION & COMMUNICATION FOLLOW UP 6 WEEKS (REASON: REVIEW MRI) ELECTRONICALLY SIGNED BY FAM CERRATO ON 01/31/2020 AT 12:56 PM EST DISCLAIMER : THIS IS A VISIT SUMMARY EXTRACTED FROM THE [employer] CHART. IT IS NOT A COPY OF THE [employer] PROGRESS NOTE. MARY
== END ==
LOC: M PAIN 13:30
PROVIDERS: ATTEND Nurse Practitioner Family
DX: G58.8 Other specified mononeuropathies (principal); G89.29 Other chronic pain; M51.26 Other intervertebral disc displacement, lumbar region; E78.00 Pure hypercholesterolemia, unspecified; F31.9 Bipolar disorder, unspecified; J45.909 Unspecified asthma, uncomplicated; Z87.891 Personal history of nicotine dependence; Z79.899 Other long term (current) drug therapy

== ENCOUNTER → 2020-04-03 | Outpatient (CLI) | payer MEDICARE, MEDICAID ==
--- NOTE | 2020-04-04 02:02 | ECWPNPC ---
PATIENT NAME: OBED RAO : 1980 GENDER: MALE VISIT DATE: 04/03/2020 DISCHARGE DATE: 04/03/20 1200 VISIT LOCKED DATE TIME: PHYSICIAN: ANGELINA HERNANDEZ MD PHYSICIAN PAGER NO: INACTIVE RESOURCE: ANGELINA HERNANDEZ MD REASON FOR APPOINTMENT 1. PRE SEDATE L4-5 LUMBAR EPIDURAL STEROID INJECTION WITH IV SEDATION HISTORY OF PRESENT ILLNESS GENERAL: 40-YEAR-OLD MALE PATIENT WITH A HISTORY OF CHRONIC LOW BACK AND BILATERAL LEG PAIN. THE PATIENT HAS BEEN SUFFERING FROM THIS PAIN FOR MORE THAN A YEAR THE PATIENT DESCRIBES THE PAIN SERVE, BURNING AND TENDER WITH A PAIN SCORE RANGING FROM 6-9/10. THE PATIENT NOTICES MORE PAIN IN THE LEFT LEG. THE PAIN AFFECTS HIS ABILITY TO DO ACTIVITIES. THE PATIENT NOTICES MORE DISCOMFORT DOWN THE BACK OF THE LEFT LEG. THE PATIENT HAS TRIED MEDICATION MANAGEMENT AND THE PAIN STILL PERSISTS. PAIN CENTER INTAKE QUESTIONS: DO YOU HAVE A HISTORY OF MRSA? :NO DO YOU TAKE A BLOOD THINNERS? :NO DO YOU HAVE ANY BLEEDING DISORDERS? :NO ANY NEW NUMBNESS OR WEAKNESS IN YOUR LEGS OR ARMS? :NO ANY PACEMAKER,DEFIBRILLATOR, OR DORSAL COLUMN STIMULATOR? :NO DO YOU HAVE ANY RASHES OR OPEN SORES? :NO ARE YOU ALLERGIC TO IV DYE? :NO ARE YOU DIABETIC? :NO ANY NEW PROBLEMS WITH YOUR MEDICATIONS? :NO HAVE YOU RECEIVED A VACCINE IN THE PAST 30 DAYS? :NO DO YOU PLAN TO RECEIVE A VACCINE IN THE NEXT 21 DAYS? :NO DO YOU NEED ANY PRESCRIPTION? :NO DO YOU TAKE ANY IMMUNOSUPPRESSIVE MEDICATIONS? :NO IS THERE A CHANCE YOU COULD BE ? :NO ARE YOU BREAST FEEDING? :NO FALL RISK SCREENING: SCREENING :ONE FALL WITHOUT INJURY IN THE PAST YEAR PAIN SCREENING: PATIENT HAS A COMPLAINT OF ACUTE OR CHRONIC PAIN :YES INTENSITY OF PAIN (SCALE OF 1 TO 10):10 WHAT DOES YOUR PAIN FEEL LIKE:CONTINOUS, THROBBING, ACHING NURSING NOTE: -. CURRENT MEDICATIONS TAKING PROPRANOLOL HCL 20 MG TABLET 1 TABLET ORALLY TWICE A DAY TAKING PRIMIDONE 50 MG TABLET 1 ORALLY PO BID TAKING DEPAKOTE ER 500 MG TABLET EXTENDED RELEASE 24 HOUR 1 TABLET ORALLY THREE TIMES DAILY TAKING VITAMIN C 500 MG TABLET CHEWABLE 1 TABLET ORALLY ONCE A DAY- OTC TAKING EXCEDRIN TENSION HEADACHE 500-65 MG TABLET 2 TABLETS NEEDED ORALLY THREE TIMES A DAY TAKING OMEPRAZOLE 40 MG CAPSULE DELAYED RELEASE 1 CAPSULE ORALLY BID TAKING SIMVASTATIN 40 MG TABLET 1 TABLET IN THE EVENING ORALLY ONCE A DAY TAKING FLONASE ALLERGY RELIEF 50 MCG/ACT SUSPENSION 1 SPRAY IN EACH NOSTRIL NASALLY ONCE A DAY TAKING MONTELUKAST SODIUM 10 MG TABLET 1 TABLET ORALLY ONCE A DAY TAKING AYR SALINE NASAL NETI RINSE 1.57 GM PACKET DIRECTED NASALLY DAILY TAKING ALBUTEROL SULFATE HFA 108 (90 BASE) MCG/ACT AEROSOL SOLUTION 2 PUFFS NEEDED INHALATION EVERY 6 HRS TAKING VITAMIN D 50 MCG (2000 UT) CAPSULE 1 CAPSULE ORALLY ONCE A DAY TAKING AYANNA ALLERGY 180 MG TABLET 1 TABLET NEEDED ORALLY ONCE A DAY TAKING NICORETTE 4 MG GUM 1 PIECE FOR 30 MINUTE NEEDED MOUTH/THROAT 24 TIME(S) A DAY TAKING RELPAX 20 MG TABLET 1 TABLET ORALLY ONCE A DAY TAKING GABAPENTIN 100 MG CAPSULE 2 CAP ORALLY FOR PAIN TID TAKING AIMOVIG 70 MG/ML SOLUTION AUTO-INJECTOR DIRECTED SUBCUTANEOUS TAKING GUANFACINE HCL 1 MG TABLET 1 TABLET AT BEDTIME ORALLY ONCE A DAY NOT-TAKING KETOROLAC TROMETHAMINE 10 MG TABLET 1 TABLET WITH FOOD OR MILK NEEDED ORALLY EVERY 6 HRS NOT-TAKING KETOROLAC TROMETHAMINE 10 MG TABLET 1 TABLET WITH FOOD OR MILK NEEDED ORALLY EVERY 6 HRS NOT-TAKING BOTOX 100 UNIT SOLUTION RECONSTITUTED DIRECTED INJECTION EVERY MONTH NOT-TAKING NICOTROL 10 MG INHALER 1 CARTRIDGE NEEDED INHALATION 16 TIME(S) A DAY NOT-TAKING AMOXICILLIN 500 MG CAPSULE 1 CAPSULE ORALLY EVERY 12 HRS NOT-TAKING CYMBALTA 60 MG CAPSULE DELAYED RELEASE PARTICLES 1 CAPSULE ORALLY FOR PAIN DAILY NOT-TAKING HIBICLENS 4 % LIQUID DIRECTED EXTERNALLY DAILY AT PELVIC AREA NOT-TAKING CETIRIZINE HCL 10 MG TABLET 1 TABLET ORALLY ONCE A DAY NOT-TAKING ZOLMITRIPTAN 5 MG TABLET 1 TABLET NEEDED ONE TIME ORALLY ONCE A DAY NOT-TAKING SUCRALFATE 1 GM TABLET ORAL DIRECTED NOT-TAKING PERCOCET 10-325 MG TABLET 1 TABLET NEEDED ORALLY EVERY 6 HRS, NOTES: FOR SINUS SURGERY NOT-TAKING KEFLEX 500 MG CAPSULE 1 CAPSULE ORALLY EVERY 12 HRS MEDICATION LIST REVIEWED AND RECONCILED WITH THE PATIENT PAST MEDICAL HISTORY HIGH CHOLESTEROL BIPOLAR ADHD ALLERGIES ASTHMA SLEEP APNEA 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 COLONOSCOPY 03/2018: MILD NONSPECIFIC CHRONIC INFLAMMATION NOTED ON BIOPSY, NO ACTIVE COLITIS, DYSPLASIA OR GRANULOMA IDENTIFIED EGD 03/2018: MILD CHRONIC GASTRITIS NOTED ON BIOPSY, NO H-PYLORI RIANNA: MANAGED BY NEUROLOGY SCROTAL PAIN ED- FOLLOWING WITH UROLOGY MIHIR VARICOSE VIENS TESTICLES- UROLOGY ALVAGE TREMORS SINUS INFECTION ALLERGIES SEASONAL ALLERGIES: SNEEZING, COUGHING - ALLERGY SURGICAL HISTORY PERIANAL ABCESS X2 - MIHIR, DR DEMARCO SCHAFER 10/2015 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 - MIHIR, (?REACTION TO DYE) 12/2015 R SHOULDER ROTATOR CUFF, SOS 2017 ALL UPPER TEETH EXT, TAI DENTAL, 2018 VASECTOMY- [facility]/UROLOGY, WITH SEVERE SCAR TISSUE 2017 ENDOSCOPY UPPER AND LOWER, WITH BX-[facility], ADDITIONAL TESTING 03/2018 SINUS SURGERY- POLYP FAMILY HISTORY FATHER: 80 YRS, DIAGNOSED WITH OTHER MALIGNANT NEOPLASM OF UNSPECIFIED SITE MOTHER: ALIVE 54 YRS, HYPERTENSION SIBLINGS: UNKNOWN SON(S): ALIVE DAUGHTER(S): ALIVE 1 YRS PATERNAL GRAND FATHER: UNKNOWN PATERNAL GRAND MOTHER: UNKNOWN MATERNAL GRAND FATHER: 65 YRS, HYPERTENSION, UNSPECIFIED HEART DISEASE, DIABETES MATERNAL GRAND MOTHER: 68 YRS, HYPERTENSION, UNSPECIFIED HEART DISEASE 1 SON(S) , 1 DAUGHTER(S) - HEALTHY. - HTN, HIGH CHOLESTEROL, ALLERGIES, ASTHMA, 1YR DAUGHTER, 1MONTH OLD SON- NO KNOWN RAGHAVENDRA ISSUES, MATERNAL GRANDPARENTS- GRANDMOTHER 65, DM, HEART, CHOLESTEROL, HTN, PARKINSONS,GRANDFATHER- 68 HEART DISEASE, HTN, NADIA CHOLESTEROL, COUGH-THROAT CLOSING-ISSUES. SOCIAL HISTORY GENERAL: TOBACCO USE ARE YOU A:FORMER SMOKER NICOTINE GUM HOW LONG HAS IT BEEN SINCE YOU LAST SMOKED?6-12 MONTHS SMOKING CESSATION INFORMATION GIVEN06/06/2019 LATEX QUESTIONNAIRE LATEX ALLERGY : HAVE YOU EVER DEVELOPED ANY TYPE OF REACTION AFTER HANDLING LATEX PRODUCTS SUCH RUBBER GLOVES, CONDOMS, DIAPHRAGMS, BALLOONS, SOCKS, OR UNDERWEAR?NO LATEX ALLERGY : HAVE YOU EVER DEVELOPED ANY TYPE OF REACTION DURING OR AFTER DENTAL APPOINTMENT, VAGINAL/RECTAL EXAMINATION, SURGICAL PROCEDURE, OR ANY OTHER EXPOSURE?NO DATE ASKED : 01/30/2020 LATEX RISK : HAVE YOU EVER HAD ANY DIFFICULTY BREATHING OR HIVES AFTER EATING OR HANDLING ANY FRUITS, OR VEGETABLES; SUCH KIWI, BANANAS, STONE FRUITS, OR CHESTNUTSNO LATEX RISK : DO YOU HAVE A PREVIOUS PERSONAL HISTORY OF MORE THAN NINE SURGERIES, SPINA BIFIDA, OR REPEATED CATHERIZATIONS? YES - PLEASE INDICATE : > 9 SURGERIES LATEX RISK : ARE YOU FREQUENTLY EXPOSED TO LATEX PRODUCTS IN YOUR OCCUPATION?NO ALCOHOL SCREENING DID YOU HAVE A DRINK CONTAINING ALCOHOL IN THE PAST YEAR?YES HOW OFTEN DID YOU HAVE SIX OR MORE DRINKS ON ONE OCCASION IN THE PAST YEAR?NEVER (0 POINTS) HOW MANY DRINKS DID YOU HAVE ON A TYPICAL DAY WHEN YOU WERE DRINKING IN THE PAST YEAR?1 OR 2 (0 POINTS) HOW OFTEN DID YOU HAVE A DRINK CONTAINING ALCOHOL IN THE PAST YEAR?MONTHLY OR LESS (1 POINT) POINTS1 INTERPRETATIONNEGATIVE RECREATIONAL DRUG USE DRUG USE?NO DENIES 09/02/19 CAFFEINE CAFFEINE USE?NO PEPSI 3 BOTTLES A DAY SEXUAL HX HAD SEX IN THE LAST 12 MONTHS (VAGINAL, ORAL, OR ANAL)?YES WITHWOMEN ONLY PREVENTION STRATEGIES DISCUSSED:OTHER USE PROTECTION?NO HAVE YOU EVER HAD AN STD?NO HIV / HEP-C SCREENING HIV TEST OFFERED TO PATIENT:YES DATE OFFERED:05/01/2017 TEST ACCEPTED:NO REASON:PATIENT DECLINED SPIRITISM [id number] YARSANISM LANGUAGE LANGUAGES SPOKEN:CUBAN EDUCATION LEVEL OF EDUCATION:HIGH SCHOOL LEARNING BARRIERS / SPECIAL NEEDS CHANGE FROM LAST VISIT?NO BARRIERS TO LEARNING?NO HEARING IMPAIRED?NO VISION IMPAIRED?YES COGNITIVELY IMPAIRED?NO :CORRECTIVE LENSES READINESS TO LEARN?YES LEARNING PREFERENCES?NO LEARNING CAPABILITIES PRESENT?YES EMOTIONAL BARRIERS?NO SPECIAL DEVICES?NO TREATMENT PLANT OPERATOR NEEDED?NO DOMESTIC VIOLENCE DO YOU FEEL SAFE IN YOUR ENVIRONMENT?YES OCCUPATION: UNEMPLOYED. DIET: REGULAR. EXERCISE: DAILY, WALKS. MARITAL STATUS: SINGLE. OTHERS AT HOME: CHILDREN. PAIN CLINIC PFS, CLERGY, PUBLIC HEALTH REFERRALS WAS THE PROVIDER NOTIFIED OF ANY PERTINENT INFO?YES HAS THE PATIENT BEEN EDUCATED REGARDING HIS/HER PLAN OF CARE?YES HAS THE PATIENT BEEN EDUCATED REGARDING PAIN, THE RISK FOR PAIN, THE IMPORTANCE OF EFFECTIVE PAIN MANAGEMENT, AND THE PAIN ASSESSMENT PROCESS?YES ADVANCE DIRECTIVE ADVANCE DIRECTIVE DISCUSSED WITH PATIENT:YES PT DOES NOT HAVE HCP AND DECLINES INFO AND ASSISTANCE AT THIS TIME. HOSPITALIZATION/MAJOR DIAGNOSTIC PROCEDURE SURIGCAL RELATED [facility] CELLULITIS RIGHT GROIN WITH ABSCESS 10/06-10/09/17 REVIEW OF SYSTEMS GLAUCOMA: NOTHYROID DISEASE: NOHYPERTENSION: NOHEART DISEASE: NOLUNG DISEASE: NODIABETES: NOGI DISEASE: NO LIVER DISEASE: NO KIDNEY DISEASE: NOSTERIOD USE: NONEUROLOGICAL DISEASE: NOBACK PROBLEMS: YES, PAINEXTREMITIES: YES, PAINGENITOURINARY: NOBLEEDING DISORDER: NOASA CLASS: IIAIRWAY CLASS: I. VITAL SIGNS WT 206.6 LBS, HT 65 IN, BMI 34.38 INDEX, BP 136/85 MM HG, HR 76 /MIN, RR 18 /MIN, TEMP 95.6 F, OXYGEN SAT % 100%, NA INITIALS AW 1101. EXAMINATION GENERAL EXAMINATION: THE PATIENT IS ALERT, ORIENTED TIMES THREE AND COOPERATIVE. LUNGS ARE CLEAR TO AUSCULTATION. HEART SHOWS REGULAR RHYTHM, NO MURMURS AND NO GALLOPS. THE LEFT LEG IS WEAKER THAN THE RIGHT LEG ON FLEXION AND EXTENSION. STRAIGHT LEG RAISE IS POSITIVE FOR RADICULOPATHY ON THE LEFT AT 50 DEGREES. MRI OF THE LUMBAR SPINE DATED 02/17/2020 SHOWS BULGING DISC AT L3-L4 AND L4-L5. 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 (PRIMARY) LUMBOSACRAL RADICULOPATHY DUE TO INTERVERTEBRAL DISC DISORDER - M54.17 TREATMENT RADICULOPATHY DUE TO LUMBAR INTERVERTEBRAL DISC DISORDER MEDICATION: VERSED 1MG IV (MIDAZOLAM) (ORDERED FOR 05/04/2020) MEDICATION: FENTANYL CITRATE 50MCG IV (ORDERED FOR 05/04/2020) OXYGEN AT 2 LITERS PER NASAL CANNULA (ORDERED FOR 05/04/2020) IV LACTATED RINGER'S AT KVO (ORDERED FOR 05/04/2020) NOTES: 04/03/20 1200 PATIENT GIVEN PRE PROCEDURE INSTRUCTIONS FOR LUMBAR EPIDURAL STEROID INJECTION WITH IV SEDATION, PATIENT GIVEN HANDOUT ON LUMBAR EPIDURAL STEROID INJECTION, PATIENT VERBALIZES UNDERSTANDING, NO QUESTIONS OR CONCERNS AT THIS TIME. Jenn JEFFERY FOOD COOKING MACHINE OPERATOR. CLINICAL NOTES: I DISCUSSED ALTERNATIVES WITH MR. RAO. WE AGREE ON DOING A LUMBAR EPIDURAL STEROID AT L4-L5 INJECTION WITH IV SEDATION DUE TO ANXIETY AND DISCOMFORT ASSOCIATED WITH THE PROCEDURE. THE PATIENT REPORTS UNDERSTANDING AND AGREES WITH THE PLAN. I, JANET LOPEZ, DOCUMENTED THE ABOVE INFORMATION ACTING A SCRIBE FOR DR. HERNANDEZ. I HAVE REVIEWED THE ABOVE DOCUMENT, WRITTEN BY JANET LOPEZ, GRAVURE PRINTING MACHINIST, AND I VERIFY THAT IT IS ACCURATE. PROCEDURE CODES FA211 ESTABILISHED PATIENT [facility] CHARGE [id number] OFFICE/OUTPATIENT VISIT EST DISPOSITION & COMMUNICATION FOLLOW UP OKAY TO BOOK (REASON: LUMBAR EPIDURAL STEROID INJECTION WITH IV SEDATION) ELECTRONICALLY SIGNED BY ANGELINA HERNANDEZ MD, MD ON 04/03/2020 AT 04:51 PM EST DISCLAIMER : THIS IS A VISIT SUMMARY EXTRACTED FROM THE [employer] CHART. IT IS NOT A COPY OF THE [employer] PROGRESS NOTE. MARY
--- NOTE | 2020-04-04 02:05 | ECWPNPC ---
PATIENT NAME: OBED RAO : 1980 GENDER: MALE VISIT DATE: 04/03/2020 DISCHARGE DATE: 04/03/20 1200 VISIT LOCKED DATE TIME: PHYSICIAN: ANGELINA HERNANDEZ MD PHYSICIAN PAGER NO: INACTIVE RESOURCE: ANGELINA HERNANDEZ MD REASON FOR APPOINTMENT 1. PRE SEDATE L4-5 LUMBAR EPIDURAL STEROID INJECTION WITH IV SEDATION HISTORY OF PRESENT ILLNESS GENERAL: 40-YEAR-OLD MALE PATIENT WITH A HISTORY OF CHRONIC LOW BACK AND BILATERAL LEG PAIN. THE PATIENT HAS BEEN SUFFERING FROM THIS PAIN FOR MORE THAN A YEAR THE PATIENT DESCRIBES THE PAIN SERVE, BURNING AND TENDER WITH A PAIN SCORE RANGING FROM 6-9/10. THE PATIENT NOTICES MORE PAIN IN THE LEFT LEG. THE PAIN AFFECTS HIS ABILITY TO DO ACTIVITIES. THE PATIENT NOTICES MORE DISCOMFORT DOWN THE BACK OF THE LEFT LEG. THE PATIENT HAS TRIED MEDICATION MANAGEMENT AND THE PAIN STILL PERSISTS. PAIN CENTER INTAKE QUESTIONS: DO YOU HAVE A HISTORY OF MRSA? :NO DO YOU TAKE A BLOOD THINNERS? :NO DO YOU HAVE ANY BLEEDING DISORDERS? :NO ANY NEW NUMBNESS OR WEAKNESS IN YOUR LEGS OR ARMS? :NO ANY PACEMAKER,DEFIBRILLATOR, OR DORSAL COLUMN STIMULATOR? :NO DO YOU HAVE ANY RASHES OR OPEN SORES? :NO ARE YOU ALLERGIC TO IV DYE? :NO ARE YOU DIABETIC? :NO ANY NEW PROBLEMS WITH YOUR MEDICATIONS? :NO HAVE YOU RECEIVED A VACCINE IN THE PAST 30 DAYS? :NO DO YOU PLAN TO RECEIVE A VACCINE IN THE NEXT 21 DAYS? :NO DO YOU NEED ANY PRESCRIPTION? :NO DO YOU TAKE ANY IMMUNOSUPPRESSIVE MEDICATIONS? :NO IS THERE A CHANCE YOU COULD BE ? :NO ARE YOU BREAST FEEDING? :NO FALL RISK SCREENING: SCREENING :ONE FALL WITHOUT INJURY IN THE PAST YEAR PAIN SCREENING: PATIENT HAS A COMPLAINT OF ACUTE OR CHRONIC PAIN :YES INTENSITY OF PAIN (SCALE OF 1 TO 10):10 WHAT DOES YOUR PAIN FEEL LIKE:CONTINOUS, THROBBING, ACHING NURSING NOTE: -. CURRENT MEDICATIONS TAKING PROPRANOLOL HCL 20 MG TABLET 1 TABLET ORALLY TWICE A DAY TAKING PRIMIDONE 50 MG TABLET 1 ORALLY PO BID TAKING DEPAKOTE ER 500 MG TABLET EXTENDED RELEASE 24 HOUR 1 TABLET ORALLY THREE TIMES DAILY TAKING VITAMIN C 500 MG TABLET CHEWABLE 1 TABLET ORALLY ONCE A DAY- OTC TAKING EXCEDRIN TENSION HEADACHE 500-65 MG TABLET 2 TABLETS NEEDED ORALLY THREE TIMES A DAY TAKING OMEPRAZOLE 40 MG CAPSULE DELAYED RELEASE 1 CAPSULE ORALLY BID TAKING SIMVASTATIN 40 MG TABLET 1 TABLET IN THE EVENING ORALLY ONCE A DAY TAKING FLONASE ALLERGY RELIEF 50 MCG/ACT SUSPENSION 1 SPRAY IN EACH NOSTRIL NASALLY ONCE A DAY TAKING MONTELUKAST SODIUM 10 MG TABLET 1 TABLET ORALLY ONCE A DAY TAKING AYR SALINE NASAL NETI RINSE 1.57 GM PACKET DIRECTED NASALLY DAILY TAKING ALBUTEROL SULFATE HFA 108 (90 BASE) MCG/ACT AEROSOL SOLUTION 2 PUFFS NEEDED INHALATION EVERY 6 HRS TAKING VITAMIN D 50 MCG (2000 UT) CAPSULE 1 CAPSULE ORALLY ONCE A DAY TAKING AYANNA ALLERGY 180 MG TABLET 1 TABLET NEEDED ORALLY ONCE A DAY TAKING NICORETTE 4 MG GUM 1 PIECE FOR 30 MINUTE NEEDED MOUTH/THROAT 24 TIME(S) A DAY TAKING RELPAX 20 MG TABLET 1 TABLET ORALLY ONCE A DAY TAKING GABAPENTIN 100 MG CAPSULE 2 CAP ORALLY FOR PAIN TID TAKING AIMOVIG 70 MG/ML SOLUTION AUTO-INJECTOR DIRECTED SUBCUTANEOUS TAKING GUANFACINE HCL 1 MG TABLET 1 TABLET AT BEDTIME ORALLY ONCE A DAY NOT-TAKING KETOROLAC TROMETHAMINE 10 MG TABLET 1 TABLET WITH FOOD OR MILK NEEDED ORALLY EVERY 6 HRS NOT-TAKING KETOROLAC TROMETHAMINE 10 MG TABLET 1 TABLET WITH FOOD OR MILK NEEDED ORALLY EVERY 6 HRS NOT-TAKING BOTOX 100 UNIT SOLUTION RECONSTITUTED DIRECTED INJECTION EVERY MONTH NOT-TAKING NICOTROL 10 MG INHALER 1 CARTRIDGE NEEDED INHALATION 16 TIME(S) A DAY NOT-TAKING AMOXICILLIN 500 MG CAPSULE 1 CAPSULE ORALLY EVERY 12 HRS NOT-TAKING CYMBALTA 60 MG CAPSULE DELAYED RELEASE PARTICLES 1 CAPSULE ORALLY FOR PAIN DAILY NOT-TAKING HIBICLENS 4 % LIQUID DIRECTED EXTERNALLY DAILY AT PELVIC AREA NOT-TAKING CETIRIZINE HCL 10 MG TABLET 1 TABLET ORALLY ONCE A DAY NOT-TAKING ZOLMITRIPTAN 5 MG TABLET 1 TABLET NEEDED ONE TIME ORALLY ONCE A DAY NOT-TAKING SUCRALFATE 1 GM TABLET ORAL DIRECTED NOT-TAKING PERCOCET 10-325 MG TABLET 1 TABLET NEEDED ORALLY EVERY 6 HRS, NOTES: FOR SINUS SURGERY NOT-TAKING KEFLEX 500 MG CAPSULE 1 CAPSULE ORALLY EVERY 12 HRS MEDICATION LIST REVIEWED AND RECONCILED WITH THE PATIENT PAST MEDICAL HISTORY HIGH CHOLESTEROL BIPOLAR ADHD ALLERGIES ASTHMA SLEEP APNEA 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 COLONOSCOPY 03/2018: MILD NONSPECIFIC CHRONIC INFLAMMATION NOTED ON BIOPSY, NO ACTIVE COLITIS, DYSPLASIA OR GRANULOMA IDENTIFIED EGD 03/2018: MILD CHRONIC GASTRITIS NOTED ON BIOPSY, NO H-PYLORI RIANNA: MANAGED BY NEUROLOGY SCROTAL PAIN ED- FOLLOWING WITH UROLOGY MIHIR VARICOSE VIENS TESTICLES- UROLOGY ALVAGE TREMORS SINUS INFECTION ALLERGIES SEASONAL ALLERGIES: SNEEZING, COUGHING - ALLERGY SURGICAL HISTORY PERIANAL ABCESS X2 - MIHIR, DR DEMARCO SCHAFER 10/2015 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 - MIHIR, (?REACTION TO DYE) 12/2015 R SHOULDER ROTATOR CUFF, SOS 2017 ALL UPPER TEETH EXT, TAI DENTAL, 2018 VASECTOMY- [facility]/UROLOGY, WITH SEVERE SCAR TISSUE 2017 ENDOSCOPY UPPER AND LOWER, WITH BX-[facility], ADDITIONAL TESTING 03/2018 SINUS SURGERY- POLYP FAMILY HISTORY FATHER: 80 YRS, DIAGNOSED WITH OTHER MALIGNANT NEOPLASM OF UNSPECIFIED SITE MOTHER: ALIVE 54 YRS, HYPERTENSION SIBLINGS: UNKNOWN SON(S): ALIVE DAUGHTER(S): ALIVE 1 YRS PATERNAL GRAND FATHER: UNKNOWN PATERNAL GRAND MOTHER: UNKNOWN MATERNAL GRAND FATHER: 65 YRS, HYPERTENSION, UNSPECIFIED HEART DISEASE, DIABETES MATERNAL GRAND MOTHER: 68 YRS, HYPERTENSION, UNSPECIFIED HEART DISEASE 1 SON(S) , 1 DAUGHTER(S) - HEALTHY. - HTN, HIGH CHOLESTEROL, ALLERGIES, ASTHMA, 1YR DAUGHTER, 1MONTH OLD SON- NO KNOWN RAGHAVENDRA ISSUES, MATERNAL GRANDPARENTS- GRANDMOTHER 65, DM, HEART, CHOLESTEROL, HTN, PARKINSONS,GRANDFATHER- 68 HEART DISEASE, HTN, NADIA CHOLESTEROL, COUGH-THROAT CLOSING-ISSUES. SOCIAL HISTORY GENERAL: TOBACCO USE ARE YOU A:FORMER SMOKER NICOTINE GUM HOW LONG HAS IT BEEN SINCE YOU LAST SMOKED?6-12 MONTHS SMOKING CESSATION INFORMATION GIVEN06/06/2019 LATEX QUESTIONNAIRE LATEX ALLERGY : HAVE YOU EVER DEVELOPED ANY TYPE OF REACTION AFTER HANDLING LATEX PRODUCTS SUCH RUBBER GLOVES, CONDOMS, DIAPHRAGMS, BALLOONS, SOCKS, OR UNDERWEAR?NO LATEX ALLERGY : HAVE YOU EVER DEVELOPED ANY TYPE OF REACTION DURING OR AFTER DENTAL APPOINTMENT, VAGINAL/RECTAL EXAMINATION, SURGICAL PROCEDURE, OR ANY OTHER EXPOSURE?NO DATE ASKED : 01/30/2020 LATEX RISK : HAVE YOU EVER HAD ANY DIFFICULTY BREATHING OR HIVES AFTER EATING OR HANDLING ANY FRUITS, OR VEGETABLES; SUCH KIWI, BANANAS, STONE FRUITS, OR CHESTNUTSNO LATEX RISK : DO YOU HAVE A PREVIOUS PERSONAL HISTORY OF MORE THAN NINE SURGERIES, SPINA BIFIDA, OR REPEATED CATHERIZATIONS? YES - PLEASE INDICATE : > 9 SURGERIES LATEX RISK : ARE YOU FREQUENTLY EXPOSED TO LATEX PRODUCTS IN YOUR OCCUPATION?NO ALCOHOL SCREENING DID YOU HAVE A DRINK CONTAINING ALCOHOL IN THE PAST YEAR?YES HOW OFTEN DID YOU HAVE SIX OR MORE DRINKS ON ONE OCCASION IN THE PAST YEAR?NEVER (0 POINTS) HOW MANY DRINKS DID YOU HAVE ON A TYPICAL DAY WHEN YOU WERE DRINKING IN THE PAST YEAR?1 OR 2 (0 POINTS) HOW OFTEN DID YOU HAVE A DRINK CONTAINING ALCOHOL IN THE PAST YEAR?MONTHLY OR LESS (1 POINT) POINTS1 INTERPRETATIONNEGATIVE RECREATIONAL DRUG USE DRUG USE?NO DENIES 09/02/19 CAFFEINE CAFFEINE USE?NO PEPSI 3 BOTTLES A DAY SEXUAL HX HAD SEX IN THE LAST 12 MONTHS (VAGINAL, ORAL, OR ANAL)?YES WITHWOMEN ONLY PREVENTION STRATEGIES DISCUSSED:OTHER USE PROTECTION?NO HAVE YOU EVER HAD AN STD?NO HIV / HEP-C SCREENING HIV TEST OFFERED TO PATIENT:YES DATE OFFERED:05/01/2017 TEST ACCEPTED:NO REASON:PATIENT DECLINED MANDAEISM [id number] ORTHODOXY LANGUAGE LANGUAGES SPOKEN:ANGOLAN EDUCATION LEVEL OF EDUCATION:HIGH SCHOOL LEARNING BARRIERS / SPECIAL NEEDS CHANGE FROM LAST VISIT?NO BARRIERS TO LEARNING?NO HEARING IMPAIRED?NO VISION IMPAIRED?YES COGNITIVELY IMPAIRED?NO :CORRECTIVE LENSES READINESS TO LEARN?YES LEARNING PREFERENCES?NO LEARNING CAPABILITIES PRESENT?YES EMOTIONAL BARRIERS?NO SPECIAL DEVICES?NO SPECIALIZED LANGUAGE INSTRUCTOR NEEDED?NO DOMESTIC VIOLENCE DO YOU FEEL SAFE IN YOUR ENVIRONMENT?YES OCCUPATION: UNEMPLOYED. DIET: REGULAR. EXERCISE: DAILY, WALKS. MARITAL STATUS: SINGLE. OTHERS AT HOME: CHILDREN. PAIN CLINIC PFS, CLERGY, PUBLIC HEALTH REFERRALS WAS THE PROVIDER NOTIFIED OF ANY PERTINENT INFO?YES HAS THE PATIENT BEEN EDUCATED REGARDING HIS/HER PLAN OF CARE?YES HAS THE PATIENT BEEN EDUCATED REGARDING PAIN, THE RISK FOR PAIN, THE IMPORTANCE OF EFFECTIVE PAIN MANAGEMENT, AND THE PAIN ASSESSMENT PROCESS?YES ADVANCE DIRECTIVE ADVANCE DIRECTIVE DISCUSSED WITH PATIENT:YES PT DOES NOT HAVE HCP AND DECLINES INFO AND ASSISTANCE AT THIS TIME. HOSPITALIZATION/MAJOR DIAGNOSTIC PROCEDURE SURIGCAL RELATED SMC CELLULITIS RIGHT GROIN WITH ABSCESS 10/06-10/09/17 REVIEW OF SYSTEMS GLAUCOMA: NOTHYROID DISEASE: NOHYPERTENSION: NOHEART DISEASE: NOLUNG DISEASE: NODIABETES: NOGI DISEASE: NO LIVER DISEASE: NO KIDNEY DISEASE: NOSTERIOD USE: NONEUROLOGICAL DISEASE: NOBACK PROBLEMS: YES, PAINEXTREMITIES: YES, PAINGENITOURINARY: NOBLEEDING DISORDER: NOASA CLASS: [id number] CLASS: I. VITAL SIGNS WT 206.6 LBS, HT 65 IN, BMI 34.38 INDEX, BP 136/85 MM HG, HR 76 /MIN, RR 18 /MIN, TEMP 95.6 F, OXYGEN SAT % 100%, NA INITIALS AW 1101. EXAMINATION GENERAL EXAMINATION: THE PATIENT IS ALERT, ORIENTED TIMES THREE AND COOPERATIVE. LUNGS ARE CLEAR TO AUSCULTATION. HEART SHOWS REGULAR RHYTHM, NO MURMURS AND NO GALLOPS. THE LEFT LEG IS WEAKER THAN THE RIGHT LEG ON FLEXION AND EXTENSION. STRAIGHT LEG RAISE IS POSITIVE FOR RADICULOPATHY ON THE LEFT AT 50 DEGREES. MRI OF THE LUMBAR SPINE DATED 02/17/2020 SHOWS BULGING DISC AT L3-L4 AND L4-L5. 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 (PRIMARY) LUMBOSACRAL RADICULOPATHY DUE TO INTERVERTEBRAL DISC DISORDER - M54.17 TREATMENT RADICULOPATHY DUE TO LUMBAR INTERVERTEBRAL DISC DISORDER MEDICATION: VERSED 1MG IV (MIDAZOLAM) (ORDERED FOR 05/04/2020) MEDICATION: FENTANYL CITRATE 50MCG IV (ORDERED FOR 05/04/2020) OXYGEN AT 2 LITERS PER NASAL CANNULA (ORDERED FOR 05/04/2020) IV LACTATED RINGER'S AT KVO (ORDERED FOR 05/04/2020) NOTES: 04/03/20 1200 PATIENT GIVEN PRE PROCEDURE INSTRUCTIONS FOR LUMBAR EPIDURAL STEROID INJECTION WITH IV SEDATION, PATIENT GIVEN HANDOUT ON LUMBAR EPIDURAL STEROID INJECTION, PATIENT VERBALIZES UNDERSTANDING, NO QUESTIONS OR CONCERNS AT THIS TIME. Jenn JEFFERY AGENT. CLINICAL NOTES: I DISCUSSED ALTERNATIVES WITH MR. RAO. WE AGREE ON DOING A LUMBAR EPIDURAL STEROID AT L4-L5 INJECTION WITH IV SEDATION DUE TO ANXIETY AND DISCOMFORT ASSOCIATED WITH THE PROCEDURE. THE PATIENT REPORTS UNDERSTANDING AND AGREES WITH THE PLAN. I, JANET LOPEZ, DOCUMENTED THE ABOVE INFORMATION ACTING A SCRIBE FOR DR. HERNANDEZ. I HAVE REVIEWED THE ABOVE DOCUMENT, WRITTEN BY JANET LOPEZ, SECURITY STRATEGIST, AND I VERIFY THAT IT IS ACCURATE. PROCEDURE CODES FA211 ESTABILISHED PATIENT [facility] CHARGE [id number] OFFICE/OUTPATIENT VISIT EST DISPOSITION & COMMUNICATION FOLLOW UP OKAY TO BOOK (REASON: LUMBAR EPIDURAL STEROID INJECTION WITH IV SEDATION) ELECTRONICALLY SIGNED BY ANGELINA HERNANDEZ MD, MD ON 04/03/2020 AT 04:51 PM EST DISCLAIMER : THIS IS A VISIT SUMMARY EXTRACTED FROM THE [email or web address] (MM) CHART. IT IS NOT A COPY OF THE [email or web address] ([employer]) PROGRESS NOTE. MARY
== END ==
LOC: M PAIN 11:00
PROVIDERS: ATTEND Anesthesiology
DX: M51.16 Intervertebral disc disorders with radiculopathy, lumbar region (principal); M54.17 Radiculopathy, lumbosacral region; E78.00 Pure hypercholesterolemia, unspecified; F31.9 Bipolar disorder, unspecified; J45.909 Unspecified asthma, uncomplicated; G47.30 Sleep apnea, unspecified; Z87.891 Personal history of nicotine dependence; Z79.899 Other long term (current) drug therapy

== ENCOUNTER → 2020-04-03 | Outpatient (CLI) | payer MEDICARE, MEDICAID | LOC: M LABSMTC 12:27 | PROVIDERS: ATTEND Anesthesiology | DX: Z01.812 Encounter for preprocedural laboratory examination (principal); Z11.52 Encounter for screening for COVID-19; M51.16 Intervertebral disc disorders with radiculopathy, lumbar region; E78.00 Pure hypercholesterolemia, unspecified; F31.9 Bipolar disorder, unspecified; J45.909 Unspecified asthma, uncomplicated; G47.30 Sleep apnea, unspecified; Z87.891 Personal history of nicotine dependence; Z79.899 Other long term (current) drug therapy | CPT/HCPCS: G0463; U0003 ==

== ENCOUNTER → 2020-04-08 | Outpatient (CLI) | payer MEDICARE, MEDICAID ==
[~2020-04-08] MED LIST changes: +ISOVUE-M 300 61% 15ML VIAL As Ordered ONE; +LIDOCAINE 1% SDV 30ML VIAL As Ordered ONE; +MIDAZOLAM INJ 2MG/2ML VIAL (J2250 PER 1MG) As Ordered ONE; +fentaNYL 100 MCG/2 ML INJECTION (J3010) As Ordered ONE; +methylPREDNISolone SUSP 40MG/ML 1ML VIAL (DEPO MEDROL) As Ordered ONE
--- NOTE | 2020-04-08 10:09 | REP ---
INDICATION: LUMBAR EPIDURAL STEROID INJECTION. COMPARISON: 11/04/2019. TECHNIQUE: Two views lower lumbar spine performed during epidural steroid injection. FINDINGS: Needle is seen at L4-5 and a small amount of contrast is injected. IMPRESSION: 6 seconds of fluoroscopy time was utilized. <Electronically signed by Celio Osman > 04/08/20 [id number]
--- NOTE | 2020-04-09 03:40 | ECWPNPC ---
PATIENT NAME: OBED RAO : 1980 GENDER: MALE VISIT DATE: 04/08/2020 DISCHARGE DATE: 04/08/20 1009 VISIT LOCKED DATE TIME: PHYSICIAN: ANGELINA HERNANDEZ MD PHYSICIAN PAGER NO: INACTIVE RESOURCE: ANGELINA HERNANDEZ MD REASON FOR APPOINTMENT 1. LUMBAR EPIDURAL STEROID INJECTION HISTORY OF PRESENT ILLNESS GENERAL: -. FALL RISK SCREENING: SCREENING :ONE FALL WITHOUT INJURY IN THE PAST YEAR PAIN SCREENING: PATIENT HAS A COMPLAINT OF ACUTE OR CHRONIC PAIN :YES LOCATION OF PAIN:LOW BACK, LEFT HIP, RIGHT HIP, LEG(S) INTENSITY OF PAIN (SCALE OF 1 TO 10):10 WHAT DOES YOUR PAIN FEEL LIKE:ACHING, BURNING, SHARP, STABBING, TENDER, THROBBING, SORE DURATION:CONTINOUS, CONSTANT PAIN IS INCREASED BY:ACTIVITIES, PROLONGED STANDING PAIN IS DECREASED BY:USE OF PAIN MEDICATIONS NURSING NOTE: -. PAIN CENTER INTAKE QUESTIONS: DO YOU HAVE A HISTORY OF MRSA? :NO DO YOU TAKE A BLOOD THINNERS? :NO DO YOU HAVE ANY BLEEDING DISORDERS? :NO ANY NEW NUMBNESS OR WEAKNESS IN YOUR LEGS OR ARMS? :NO ANY PACEMAKER,DEFIBRILLATOR, OR DORSAL COLUMN STIMULATOR? :NO DO YOU HAVE ANY RASHES OR OPEN SORES? :NO ARE YOU ALLERGIC TO IV DYE? :NO ARE YOU DIABETIC? :NO ANY NEW PROBLEMS WITH YOUR MEDICATIONS? :NO HAVE YOU RECEIVED A VACCINE IN THE PAST 30 DAYS? :NO DO YOU PLAN TO RECEIVE A VACCINE IN THE NEXT 21 DAYS? :NO DO YOU TAKE ANY IMMUNOSUPPRESSIVE MEDICATIONS? :NO ANY HISTORY OF SEIZURES? :NO ANY HISTORY OF CARDIAC ISSUES OR EVENTS? :NO DO YOU HAVE SLEEP APNEA? :YES DO YOU WEAR A CPAP?YES AUTO PAP ANY RECENT HEAD INJURY? :NO DO YOU HAVE ANY NEW INFECTIONS? :NO IS THERE A CHANCE YOU COULD BE ? :NO ARE YOU BREAST FEEDING? :NO WHEN DID YOU LAST EAT? : 04/07 1999 WHEN DID YOU LAST DRINK? : 04/07 2099 WHAT DID YOU LAST DRINK? : RIGO WILKS NAME OF PERSON DRIVING YOU HOME? : MOM-MISTY DO YOU HAVE ANY OTHER QUESTIONS OR CONCERNS? : - CURRENT MEDICATIONS TAKING PROPRANOLOL HCL 20 MG TABLET 1 TABLET ORALLY TWICE A DAY, NOTES: 04/07 2099 TAKING PRIMIDONE 50 MG TABLET 1 ORALLY PO BID, NOTES: 04/07 2099 TAKING DEPAKOTE ER 500 MG TABLET EXTENDED RELEASE 24 HOUR 1 TABLET ORALLY THREE TIMES DAILY, NOTES: 04/07 2099 TAKING VITAMIN C 500 MG TABLET CHEWABLE 1 TABLET ORALLY ONCE A DAY- OTC TAKING EXCEDRIN TENSION HEADACHE 500-65 MG TABLET 2 TABLETS NEEDED ORALLY THREE TIMES A DAY TAKING OMEPRAZOLE 40 MG CAPSULE DELAYED RELEASE 1 CAPSULE ORALLY BID TAKING SIMVASTATIN 40 MG TABLET 1 TABLET IN THE EVENING ORALLY ONCE A DAY TAKING FLONASE ALLERGY RELIEF 50 MCG/ACT SUSPENSION 1 SPRAY IN EACH NOSTRIL NASALLY ONCE A DAY TAKING MONTELUKAST SODIUM 10 MG TABLET 1 TABLET ORALLY ONCE A DAY TAKING AYR SALINE NASAL NETI RINSE 1.57 GM PACKET DIRECTED NASALLY DAILY TAKING ALBUTEROL SULFATE HFA 108 (90 BASE) MCG/ACT AEROSOL SOLUTION 2 PUFFS NEEDED INHALATION EVERY 6 HRS, NOTES: NONE RECENT TAKING VITAMIN D 50 MCG (2000 UT) CAPSULE 1 CAPSULE ORALLY ONCE A DAY TAKING AYANNA ALLERGY 180 MG TABLET 1 TABLET ORALLY ONCE A DAY TAKING NICORETTE 4 MG GUM 1 PIECE FOR 30 MINUTE NEEDED MOUTH/THROAT 24 TIME(S) A DAY TAKING RELPAX 20 MG TABLET 1 TABLET ORALLY ONCE A DAY TAKING GABAPENTIN 100 MG CAPSULE 2 CAP ORALLY FOR PAIN TID TAKING AIMOVIG 70 MG/ML SOLUTION AUTO-INJECTOR DIRECTED SUBCUTANEOUS TAKING GUANFACINE HCL 1 MG TABLET 1 TAB ORALLY ONCE A DAY, NOTES: 04/07 0730 NOT-TAKING KETOROLAC TROMETHAMINE 10 MG TABLET 1 TABLET WITH FOOD OR MILK NEEDED ORALLY EVERY 6 HRS NOT-TAKING KETOROLAC TROMETHAMINE 10 MG TABLET 1 TABLET WITH FOOD OR MILK NEEDED ORALLY EVERY 6 HRS NOT-TAKING BOTOX 100 UNIT SOLUTION RECONSTITUTED DIRECTED INJECTION EVERY MONTH NOT-TAKING NICOTROL 10 MG INHALER 1 CARTRIDGE NEEDED INHALATION 16 TIME(S) A DAY NOT-TAKING AMOXICILLIN 500 MG CAPSULE 1 CAPSULE ORALLY EVERY 12 HRS NOT-TAKING CYMBALTA 60 MG CAPSULE DELAYED RELEASE PARTICLES 1 CAPSULE ORALLY FOR PAIN DAILY NOT-TAKING HIBICLENS 4 % LIQUID DIRECTED EXTERNALLY DAILY AT PELVIC AREA NOT-TAKING CETIRIZINE HCL 10 MG TABLET 1 TABLET ORALLY ONCE A DAY NOT-TAKING ZOLMITRIPTAN 5 MG TABLET 1 TABLET NEEDED ONE TIME ORALLY ONCE A DAY NOT-TAKING SUCRALFATE 1 GM TABLET ORAL DIRECTED NOT-TAKING PERCOCET 10-325 MG TABLET 1 TABLET NEEDED ORALLY EVERY 6 HRS, NOTES: FOR SINUS SURGERY NOT-TAKING KEFLEX 500 MG CAPSULE 1 CAPSULE ORALLY EVERY 12 HRS MEDICATION LIST REVIEWED AND RECONCILED WITH THE PATIENT PAST MEDICAL HISTORY HIGH CHOLESTEROL BIPOLAR ADHD ALLERGIES ASTHMA SLEEP APNEA 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 COLONOSCOPY 03/2018: MILD NONSPECIFIC CHRONIC INFLAMMATION NOTED ON BIOPSY, NO ACTIVE COLITIS, DYSPLASIA OR GRANULOMA IDENTIFIED EGD 03/2018: MILD CHRONIC GASTRITIS NOTED ON BIOPSY, NO H-PYLORI RIANNA: MANAGED BY NEUROLOGY SCROTAL PAIN ED- FOLLOWING WITH UROLOGY MIHIR 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 INFECTION ALLERGIES SEASONAL ALLERGIES: SNEEZING, COUGHING - ALLERGY SURGICAL HISTORY PERIANAL ABCESS X2 - MIHIR, DR DEMARCO SCHAFER 10/2015 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 - MIHIR, (?REACTION TO DYE) 12/2015 R SHOULDER ROTATOR CUFF, SOS 2017 ALL UPPER TEETH EXT, TAI DENTAL, 2018 VASECTOMY- [facility]/UROLOGY, WITH SEVERE SCAR TISSUE 2017 ENDOSCOPY UPPER AND LOWER, WITH BX-SMC, ADDITIONAL TESTING 03/2018 SINUS SURGERY- POLYP FAMILY HISTORY FATHER: 80 YRS, DIAGNOSED WITH OTHER MALIGNANT NEOPLASM OF UNSPECIFIED SITE MOTHER: ALIVE 54 YRS, HYPERTENSION SIBLINGS: UNKNOWN SON(S): ALIVE DAUGHTER(S): ALIVE 1 YRS PATERNAL GRAND FATHER: UNKNOWN PATERNAL GRAND MOTHER: UNKNOWN MATERNAL GRAND FATHER: 65 YRS, UNSPECIFIED HEART DISEASE, DIABETES, HYPERTENSION MATERNAL GRAND MOTHER: 68 YRS, HYPERTENSION, UNSPECIFIED HEART DISEASE 1 SON(S) , 1 DAUGHTER(S) - HEALTHY. - HTN, HIGH CHOLESTEROL, ALLERGIES, ASTHMA, 1YR DAUGHTER, 1MONTH OLD SON- NO KNOWN RAGHAVENDRA ISSUES, MATERNAL GRANDPARENTS- GRANDMOTHER 65, DM, HEART, CHOLESTEROL, HTN, PARKINSONS,GRANDFATHER- 68 HEART DISEASE, HTN, NADIA CHOLESTEROL, COUGH-THROAT CLOSING-ISSUES. SOCIAL HISTORY GENERAL: TOBACCO USE ARE YOU A:FORMER SMOKER NICOTINE GUM HOW LONG HAS IT BEEN SINCE YOU LAST SMOKED?6-12 MONTHS SMOKING CESSATION INFORMATION GIVEN06/06/2019 LATEX QUESTIONNAIRE LATEX ALLERGY : HAVE YOU EVER DEVELOPED ANY TYPE OF REACTION AFTER HANDLING LATEX PRODUCTS SUCH RUBBER GLOVES, CONDOMS, DIAPHRAGMS, BALLOONS, SOCKS, OR UNDERWEAR?NO LATEX ALLERGY : HAVE YOU EVER DEVELOPED ANY TYPE OF REACTION DURING OR AFTER DENTAL APPOINTMENT, VAGINAL/RECTAL EXAMINATION, SURGICAL PROCEDURE, OR ANY OTHER EXPOSURE?NO LATEX RISK : HAVE YOU EVER HAD ANY DIFFICULTY BREATHING OR HIVES AFTER EATING OR HANDLING ANY FRUITS, OR VEGETABLES; SUCH KIWI, BANANAS, STONE FRUITS, OR CHESTNUTSNO LATEX RISK : DO YOU HAVE A PREVIOUS PERSONAL HISTORY OF MORE THAN NINE SURGERIES, SPINA BIFIDA, OR REPEATED CATHERIZATIONS? YES - PLEASE INDICATE : > 9 SURGERIES LATEX RISK : ARE YOU FREQUENTLY EXPOSED TO LATEX PRODUCTS IN YOUR OCCUPATION?NO DATE ASKED : 04/07/2020 ALCOHOL SCREENING DID YOU HAVE A DRINK CONTAINING ALCOHOL IN THE PAST YEAR?YES HOW OFTEN DID YOU HAVE SIX OR MORE DRINKS ON ONE OCCASION IN THE PAST YEAR?NEVER (0 POINTS) HOW MANY DRINKS DID YOU HAVE ON A TYPICAL DAY WHEN YOU WERE DRINKING IN THE PAST YEAR?1 OR 2 (0 POINTS) HOW OFTEN DID YOU HAVE A DRINK CONTAINING ALCOHOL IN THE PAST YEAR?MONTHLY OR LESS (1 POINT) POINTS1 INTERPRETATIONNEGATIVE RECREATIONAL DRUG USE DRUG USE?NO CAFFEINE CAFFEINE USE?NO PEPSI 3 BOTTLES A DAY SEXUAL HX HAD SEX IN THE LAST 12 MONTHS (VAGINAL, ORAL, OR ANAL)?YES WITHWOMEN ONLY PREVENTION STRATEGIES DISCUSSED:OTHER USE PROTECTION?NO HAVE YOU EVER HAD AN STD?NO HIV / HEP-C SCREENING HIV TEST OFFERED TO PATIENT:YES DATE OFFERED:05/01/2017 TEST ACCEPTED:NO REASON:PATIENT DECLINED ORTHODOXY [id number] MUSLIM LANGUAGE LANGUAGES SPOKEN:TAMAZIGHT EDUCATION LEVEL OF EDUCATION:HIGH SCHOOL LEARNING BARRIERS / SPECIAL NEEDS CHANGE FROM LAST VISIT?NO BARRIERS TO LEARNING?NO HEARING IMPAIRED?NO VISION IMPAIRED?YES :CORRECTIVE LENSES COGNITIVELY IMPAIRED?NO READINESS TO LEARN?YES LEARNING PREFERENCES?NO LEARNING CAPABILITIES PRESENT?YES ADHD-NO DIFFICULTY WITH LEARNING EMOTIONAL BARRIERS?NO SPECIAL DEVICES?NO HAND OR MACHINE PASTER NEEDED?NO DOMESTIC VIOLENCE DO YOU FEEL SAFE IN YOUR ENVIRONMENT?YES OCCUPATION: UNEMPLOYED. DIET: REGULAR. EXERCISE: DAILY, WALKS. MARITAL STATUS: SINGLE. OTHERS AT HOME: CHILDREN. PAIN CLINIC PFS, CLERGY, PUBLIC HEALTH REFERRALS HAS THE PATIENT BEEN EDUCATED REGARDING HIS/HER PLAN OF CARE?YES HAS THE PATIENT BEEN EDUCATED REGARDING PAIN, THE RISK FOR PAIN, THE IMPORTANCE OF EFFECTIVE PAIN MANAGEMENT, AND THE PAIN ASSESSMENT PROCESS?YES ADVANCE DIRECTIVE ADVANCE DIRECTIVE DISCUSSED WITH PATIENT:YES 04/08/20 PT DOES NOT HAVE HCP AND DECLINES INFO AND ASSISTANCE AT THIS TIME. HOSPITALIZATION/MAJOR DIAGNOSTIC PROCEDURE SURIGCAL RELATED SMC CELLULITIS RIGHT GROIN WITH ABSCESS 10/06-10/09/17 VITAL SIGNS WT 208.2 LBS, HT 65 IN, BMI 34.64 INDEX, BP 128/87 MM HG, HR 71 /MIN, RR 20 /MIN, TEMP 98.2 F, OXYGEN SAT % 95%, SAFE IN ENV? (Y/N) Y, NA INITIALS SC 08:28, REVIEWED BY: POPPY SHERMAN. EXAMINATION GENERAL EXAMINATION: A HISTORY AND PHYSICAL EXAM ON THE PATIENT WAS DONE ON 04/03/2020(DATE OF ORIGINAL ASSESSMENT) IN PREPARATION OF SURGERY/PROCEDURE. I HAVE NOW REASSESSED THIS PATIENT'S HEALTH STATUS AND PERFORMED AN UPDATED EXAM TODAY. ALL CHANGES IN THE PATIENT'S HISTORY, PHYSICAL EXAM, PRE-EXISTING CONDITONS, AND INDICATIONS/CONTRAINDICATIONS TO THE PLANNED PROCEDURE AND ANESTHESIA ARE DOCUMENTED AND EVALUATED BELOW. I ATTEST TO THE ADEQUACY AND APPROPRIATENESS OF MY ASSESSMENT, AND CONFIRM THE NECESSITY FOR THE PLANNED PROCEDURE. THE PATIENT IS ALERT, ORIENTED TIMES THREE AND COOPERATIVE. LUNGS ARE CLEAR TO AUSCULTATION. HEART SHOWS REGULAR RHYTHM, NO MURMURS AND NO GALLOPS. 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 (PRIMARY) TREATMENT RADICULOPATHY DUE TO LUMBAR INTERVERTEBRAL DISC DISORDER [facility] FLUORO GUIDE SPINE INJECTION (PAIN)[id number] MEDICATION: VERSED 1MG IV (MIDAZOLAM)SELVIN FLOREZ 04/08/2020 9:19:06 AM > LOT [id number], EXP 06/2022 MAYE CESAR 04/08/2020 9:20:43 AM > VERIFIED SELVIN FLOREZ 04/08/2020 10:14:13 AM > GIVEN 0933 MEDICATION: FENTANYL CITRATE 50MCG IV SELVIN FLOREZ 04/08/2020 9:19:39 AM > LOT [id number], EXP 11/2021 MAYE CESAR 04/08/2020 9:21:02 AM > VERIFIED SELVIN FLOREZ 04/08/2020 10:14:36 AM > GIVEN 0934 OXYGEN AT 2 LITERS PER NASAL CANNULASTEPHANIE KENNYITA 04/08/2020 9:27:18 AM > ON [facility] 0927 [facility] 9:46:04 AM > OFF 0945 [facility] 04/08/2020 8:47:59 AM > IV STARTED ON 1ST ATTEMPT WITH 20G IN LEFT HAND WITHOUT INCIDENT. RL INFUSING WITHOUT SWELLING OR REDNESS. PT. TOLERATED WELL THOR FLOREZTH 04/08/2020 10:15:15 AM > 300CC INFUSED OTHERS NOTES: PAT COMPLETED 04/07/20 M MIR SHERMAN. PROCEDURES PAIN NURSING RECORD PROCEDURE IN ROOM 0915, PHYSICIAN IN ROOM 0932, START 0938, FINISH 0942, PHYSICIAN OUT OF ROOM 0945, OUT OF ROOM 0950, ECG NORMAL SINUS, PATIENT SHIELDED YES, SAFETY STRAP YES, PREP BETADINE BY Otilia KENNY RN, DRESSING TEGADERM BY DR. HERNANDEZ LOC: [facility] 04/08/2020 9:00:16 AM > , 1. ALERT, ORIENTED EFRAÍNSTITZER 04/08/2020 9:41:41 AM > , 1. ALERT, ORIENTED EFRAÍNSTITZER 04/08/2020 9:56:51 AM > , 1. ALERT, ORIENTED RESP: EF[facility]ÍNSTITZER 04/08/2020 9:00:59 AM > , 1 1. REGULAR, NO DYSPNEA, [facility] 04/08/2020 9:41:10 AM >, 1. REGULAR, NO DYSPNEA [facility] 04/08/2020 9:57:06 AM > , 1. REGULAR, NO DYSPNEA COLOR: [facility] 04/08/2020 9:00:32 AM > , 1. PINK [facility]NSTITZER 04/08/2020 9:39:21 AM > , 1. PINK [facility] 04/08/2020 9:57:12 AM > , 1. PINK SKIN: [facility] 04/08/2020 9:00:44 AM > , 1. WARM, DRY [facility] 04/08/2020 9:41:25 AM > , 1. WARM, DRY [facility]ZER 04/08/2020 9:57:19 AM > , 1. WARM, DRY POSITION: [facility] 04/08/2020 9:00:48 AM > , 2. SUPINE [facility]NSTITZER 04/08/2020 9:15:32 AM > , 1. PRONE [facility]NSTITZER 04/08/2020 9:41:46 AM > , 1. PRONE CONNIE KENNY 04/08/2020 9:57:24 AM > , 5. SITTING VITALS: CONNIE KENNY 04/08/2020 9:20:17 AM > 146/92.,62,16,98% CONNIE KENNY 04/08/2020 9:30:19 AM > 130/84,59,16,98% WITH O2 @ 2L/MIN CONNIE KENNY 04/08/2020 9:35:54 AM > 131/85,60,14,98% STEPHANIE KENNYITA 04/08/2020 9:40:05 AM > 122/79,59,16,97% STEPHANIE KENNYITA 04/08/2020 9:45:03 AM > 120/79,61,16,97% O2 OFF AT THIS TIME CONNIE KENNY 04/08/2020 9:48:25 AM >127/82,62,16,95% CONNIE KENNY 04/08/2020 10:01:46 AM > 139/87,71,16,96% DISCHARGE: POST PAIN 2, DRESSING SITE DRY AND INTACT, IV DISCONTINUED, SITE CLEAR, CATHETER INTACT, GAIT STEADY D/C VIA WHEELCHAIR DUE TO IV SEDATION, TEACHING COMPLETED, PATIENT ACKNOWLEDGES UNDERSTANDING YES, PATIENT DISCHARGED AT 1007 PRE PROCEDURE DIAGNOSIS LUMBAR DISC DISORDER WITH RADICULOPATHY POST PROCEDURE DIAGNOSIS LUMBAR DISC DISORDER WITH RADICULOPATHY PROCEDURE LUMBAR EPIDURAL STEROID INJECTION UNDER FLUOROSCOPIC GUIDANCE SURGEON DR. ANGELINA HERNANDEZ CUSTOMER SERVICE RECEPTIONIST NONE ANESTHESIA LOCAL PRE PROCEDURE NOTE THE PATIENT HAS A HISTORY OF CHRONIC LOW BACK PAIN. I EVALUATED THE PATIENT AND REVIEWED THE CHART. I WENT OVER THE RISKS, ALTERNATIVES, AND BENEFITS ASSOCIATED WITH THIS PROCEDURE. THE PATIENT WOULD LIKE TO PROCEED AND GIVE CONSENT TO PERFORMED THE PROCEDURE. THE PATIENT DENIES UNEXPLAINABLE WEIGHT LOSS, FEVER, CHILLS, OR NEW CHANGES IN URINARY OR BOWEL CONTROL. THE PATIENT IS COVID-19 NEGATIVE DESCRIPTION OF PROCEDURE THE PATIENT WAS BROUGHT TO THE PROCEDURE ROOM AND PLACED IN THE PRONE POSITION. THE LUMBOSACRAL AREA WAS CLEANED WITH BETADINE SOLUTION AND DRAPED ASEPTICALLY. THE PROCEDURE WAS DONE UNDER STERILE CONDITIONS. A TIMEOUT WAS PERFORMED WHERE LATERALITY AND THE SITE OF THE PROCEDURE WERE CHECKED AND CONFIRMED WITH EVERYONE IN THE ROOM. UNDER FLUOROSCOPIC GUIDANCE, THE TARGET POINT WAS SELECTED AT THE INTERLAMINAR LEVEL OF L4-L5. I CONFIRMED AGAIN WITH EVERYONE IN THE ROOM THE LATERALITY AND SITE OF THE TARGET AT 0938. LIDOCAINE WAS USED TO NUMB THE SKIN AND THE SUBCUTANEOUS TISSUE BELOW IT. EPIDURAL TUOHY NEEDLE, 17-GAUGE, WAS ADVANCED UNDER FLUOROSCOPIC GUIDANCE AND FOLLOWING PATIENT FEEDBACK UNTIL THE EPIDURAL SPACE WAS REACHED 6 CM DEEP INTO THE SKIN BY THE LOSS OF RESISTANCE TECHNIQUE. ISOVUE-M DYE 30%, 0.25 ML, WAS INJECTED SHOWING ADEQUATE SPREAD OF THE DYE. THEN, A SOLUTION OF 3 ML OF NORMAL SALINE WITH DEPO-MEDROL 80 MG WAS INJECTED SLOWLY FOLLOWING PATIENT FEEDBACK. THE MEDICATIONS WERE VERIFIED WITH THE NURSE. THERE WAS NO EVIDENCE OF BLOOD, PARESTHESIA OR CEREBROSPINAL FLUID DURING THE PROCEDURE. THE PATIENT WAS SENT TO THE RECOVERY ROOM. THE PATIENT WAS MOVING THE EXTREMITIES AND DOING WELL. THERE WERE NO COMPLICATIONS DURING THE PROCEDURE. ESTIMATED BLOOD LOSS WAS LESS THAN 5 ML. FLUOROSCOPY TIME WAS 6SECONDS. THE PATIENT RECEIVED VERSED 1 MG AND FENTANYL 50 MCG IV IN DIVIDED DOSES. FACE TO FACE START TIME: 932 FACE TO FACE END TIME: 944 TOTAL FACE TO FACE TIME: 12 MINUTES POST PROCEDURE NOTE THE PATIENT WILL BE SEEN IN A FOLLOW UP IN THE NEXT FEW WEEKS. I AM LOOKING FOR LONG LASTING RELIEF FOR THE PATIENT WITH THIS INTERVENTION. INSTRUCTIONS WERE GIVEN, QUESTIONS WERE ANSWERED, AND THE PATIENT EXPRESSED UNDERSTANDING AND AGREES WITH THE PLAN. I, JANET LOPEZ, DOCUMENTED THE ABOVE INFORMATION ACTING A SCRIBE FOR DR. HERNANDEZ. I HAVE REVIEWED THE ABOVE DOCUMENT, WRITTEN BY JANET LOPEZ, DIRECTOR NURSERY SCHOOL, AND I VERIFY THAT IT IS ACCURATE PROCEDURE CODES 66599 LUMBAR/SACRAL W/ IMAGING [id number] MOD SED SAME PHYS/QHP 5/>YRS DISPOSITION & COMMUNICATION FOLLOW UP FOLLOW UP WITH METAL CUTTER (REASON: POST LUMBAR EPIDURAL STEROID INJECTION) ELECTRONICALLY SIGNED BY ANGELINA HERNANDEZ MD, MD ON 04/08/2020 AT 03:29 PM EST DISCLAIMER : THIS IS A VISIT SUMMARY EXTRACTED FROM THE [employer] CHART. IT IS NOT A COPY OF THE [employer] PROGRESS NOTE. MTDD
== END ==
LOC: M PAIN 08:00
PROVIDERS: ATTEND Anesthesiology
DX: M51.16 Intervertebral disc disorders with radiculopathy, lumbar region (principal); G47.33 Obstructive sleep apnea (adult) (pediatric); J45.909 Unspecified asthma, uncomplicated; R25.1 Tremor, unspecified; F17.290 Nicotine dependence, other tobacco product, uncomplicated; Z86.59 Personal history of other mental and behavioral disorders; Z79.899 Other long term (current) drug therapy
CPT/HCPCS: 62323; 99152; J1030; J2250; J3010; Q9967

== ENCOUNTER → 2020-04-22 | Outpatient (CLI) | payer MEDICARE, MEDICAID ==
[~2020-04-22] MED LIST changes: -ISOVUE-M 300 61% 15ML VIAL As Ordered ONE; -LIDOCAINE 1% SDV 30ML VIAL As Ordered ONE; -MIDAZOLAM INJ 2MG/2ML VIAL (J2250 PER 1MG) As Ordered ONE; -fentaNYL 100 MCG/2 ML INJECTION (J3010) As Ordered ONE; -methylPREDNISolone SUSP 40MG/ML 1ML VIAL (DEPO MEDROL) As Ordered ONE
--- NOTE | 2020-04-29 04:40 | ECWPNPC ---
PATIENT NAME: OBED RAO : 1980 GENDER: MALE VISIT DATE: 04/22/2020 DISCHARGE DATE: 04/22/20 1532 VISIT LOCKED DATE TIME: PHYSICIAN: BROCK QUIGLEY PHYSICIAN PAGER NO: INACTIVE RESOURCE: BROCK QUIGLEY REASON FOR APPOINTMENT 1. POST L4-5 LUMBAR EPIDURAL STEROID INJECTION WITH IV SEDATION HISTORY OF PRESENT ILLNESS GENERAL: HERE FOR FOLLOW-UP POSTPROCEDURE. HAD L4-5 LESI ON 04/08/2020. REPORTING SOME IMPROVEMENT IN LOW BACK PAIN AND PAIN RADIATING INTO THE LEGS. PAIN HAS BEGUN TO RETURN TO BASELINE. REVIEWED MRI OF THE LS-SPINE AND DISCUSSED TREATMENT PLAN. -. FALL RISK SCREENING: SCREENING :NO FALLS REPORTED IN THE LAST YEAR PAIN SCREENING: PATIENT HAS A COMPLAINT OF ACUTE OR CHRONIC PAIN :YES LOCATION OF PAIN:LOW BACK INTENSITY OF PAIN (SCALE OF 1 TO 10):8 WHAT DOES YOUR PAIN FEEL LIKE:ACHING, BURNING, STABBING, THROBBING, SHOOTING DURATION:CONTINOUS, CONSTANT, ALL DAY PAIN IS INCREASED BY:ACTIVITIES PAIN IS DECREASED BY:USE OF PAIN MEDICATIONS NURSING NOTE: -. PAIN CENTER INTAKE QUESTIONS: DO YOU HAVE A HISTORY OF MRSA? :NO DO YOU TAKE A BLOOD THINNERS? :NO DO YOU HAVE ANY BLEEDING DISORDERS? :NO ANY NEW NUMBNESS OR WEAKNESS IN YOUR LEGS OR ARMS? :NO ANY PACEMAKER,DEFIBRILLATOR, OR DORSAL COLUMN STIMULATOR? :NO DO YOU HAVE ANY RASHES OR OPEN SORES? :NO ARE YOU ALLERGIC TO IV DYE? :NO ARE YOU DIABETIC? :NO ANY NEW PROBLEMS WITH YOUR MEDICATIONS? :NO HAVE YOU RECEIVED A VACCINE IN THE PAST 30 DAYS? :NO DO YOU PLAN TO RECEIVE A VACCINE IN THE NEXT 21 DAYS? :NO DO YOU NEED ANY PRESCRIPTION? :NO NOT SURE DO YOU TAKE ANY IMMUNOSUPPRESSIVE MEDICATIONS? :NO IS THERE A CHANCE YOU COULD BE ? :NO ARE YOU BREAST FEEDING? :NO CURRENT MEDICATIONS TAKING PROPRANOLOL HCL 20 MG TABLET 1 TABLET ORALLY TWICE A DAY TAKING PRIMIDONE 50 MG TABLET 1 ORALLY PO BID TAKING DEPAKOTE ER 500 MG TABLET EXTENDED RELEASE 24 HOUR 1 TABLET ORALLY THREE TIMES DAILY TAKING VITAMIN C 500 MG TABLET CHEWABLE 1 TABLET ORALLY ONCE A DAY- OTC TAKING EXCEDRIN TENSION HEADACHE 500-65 MG TABLET 2 TABLETS NEEDED ORALLY THREE TIMES A DAY TAKING OMEPRAZOLE 40 MG CAPSULE DELAYED RELEASE 1 CAPSULE ORALLY BID TAKING SIMVASTATIN 40 MG TABLET 1 TABLET IN THE EVENING ORALLY ONCE A DAY TAKING FLONASE ALLERGY RELIEF 50 MCG/ACT SUSPENSION 1 SPRAY IN EACH NOSTRIL NASALLY ONCE A DAY TAKING MONTELUKAST SODIUM 10 MG TABLET 1 TABLET ORALLY ONCE A DAY TAKING AYR SALINE NASAL NETI RINSE 1.57 GM PACKET DIRECTED NASALLY DAILY TAKING ALBUTEROL SULFATE HFA 108 (90 BASE) MCG/ACT AEROSOL SOLUTION 2 PUFFS NEEDED INHALATION EVERY 6 HRS TAKING VITAMIN D 50 MCG (2000 UT) CAPSULE 1 CAPSULE ORALLY ONCE A DAY TAKING AYANNA ALLERGY 180 MG TABLET 1 TABLET ORALLY ONCE A DAY TAKING NICORETTE 4 MG GUM 1 PIECE FOR 30 MINUTE NEEDED MOUTH/THROAT 24 TIME(S) A DAY TAKING RELPAX 20 MG TABLET 1 TABLET ORALLY ONCE A DAY TAKING GABAPENTIN 100 MG CAPSULE 2 CAP ORALLY FOR PAIN TID TAKING AIMOVIG 70 MG/ML SOLUTION AUTO-INJECTOR DIRECTED SUBCUTANEOUS TAKING GUANFACINE HCL 1 MG TABLET 1 TAB ORALLY ONCE A DAY NOT-TAKING KETOROLAC TROMETHAMINE 10 MG TABLET 1 TABLET WITH FOOD OR MILK NEEDED ORALLY EVERY 6 HRS NOT-TAKING KETOROLAC TROMETHAMINE 10 MG TABLET 1 TABLET WITH FOOD OR MILK NEEDED ORALLY EVERY 6 HRS NOT-TAKING BOTOX 100 UNIT SOLUTION RECONSTITUTED DIRECTED INJECTION EVERY MONTH NOT-TAKING NICOTROL 10 MG INHALER 1 CARTRIDGE NEEDED INHALATION 16 TIME(S) A DAY NOT-TAKING AMOXICILLIN 500 MG CAPSULE 1 CAPSULE ORALLY EVERY 12 HRS NOT-TAKING CYMBALTA 60 MG CAPSULE DELAYED RELEASE PARTICLES 1 CAPSULE ORALLY FOR PAIN DAILY NOT-TAKING HIBICLENS 4 % LIQUID DIRECTED EXTERNALLY DAILY AT PELVIC AREA NOT-TAKING CETIRIZINE HCL 10 MG TABLET 1 TABLET ORALLY ONCE A DAY NOT-TAKING ZOLMITRIPTAN 5 MG TABLET 1 TABLET NEEDED ONE TIME ORALLY ONCE A DAY NOT-TAKING SUCRALFATE 1 GM TABLET ORAL DIRECTED NOT-TAKING PERCOCET 10-325 MG TABLET 1 TABLET NEEDED ORALLY EVERY 6 HRS, NOTES: FOR SINUS SURGERY NOT-TAKING KEFLEX 500 MG CAPSULE 1 CAPSULE ORALLY EVERY 12 HRS MEDICATION LIST REVIEWED AND RECONCILED WITH THE PATIENT PAST MEDICAL HISTORY HIGH CHOLESTEROL BIPOLAR ADHD ALLERGIES ASTHMA SLEEP APNEA 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 COLONOSCOPY 03/2018: MILD NONSPECIFIC CHRONIC INFLAMMATION NOTED ON BIOPSY, NO ACTIVE COLITIS, DYSPLASIA OR GRANULOMA IDENTIFIED EGD 03/2018: MILD CHRONIC GASTRITIS NOTED ON BIOPSY, NO H-PYLORI RIANNA: MANAGED BY NEUROLOGY SCROTAL PAIN ED- FOLLOWING WITH UROLOGY CARTHAGE 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 INFECTION ALLERGIES SEASONAL ALLERGIES: SNEEZING, COUGHING - ALLERGY SOCIAL HISTORY GENERAL: TOBACCO USE ARE YOU A:FORMER SMOKER NICOTINE GUM HOW LONG HAS IT BEEN SINCE YOU LAST SMOKED?6-12 MONTHS SMOKING CESSATION INFORMATION GIVEN06/06/2019 LATEX QUESTIONNAIRE LATEX ALLERGY : HAVE YOU EVER DEVELOPED ANY TYPE OF REACTION AFTER HANDLING LATEX PRODUCTS SUCH RUBBER GLOVES, CONDOMS, DIAPHRAGMS, BALLOONS, SOCKS, OR UNDERWEAR?NO LATEX ALLERGY : HAVE YOU EVER DEVELOPED ANY TYPE OF REACTION DURING OR AFTER DENTAL APPOINTMENT, VAGINAL/RECTAL EXAMINATION, SURGICAL PROCEDURE, OR ANY OTHER EXPOSURE?NO LATEX RISK : HAVE YOU EVER HAD ANY DIFFICULTY BREATHING OR HIVES AFTER EATING OR HANDLING ANY FRUITS, OR VEGETABLES; SUCH KIWI, BANANAS, STONE FRUITS, OR CHESTNUTSNO LATEX RISK : DO YOU HAVE A PREVIOUS PERSONAL HISTORY OF MORE THAN NINE SURGERIES, SPINA BIFIDA, OR REPEATED CATHERIZATIONS? YES - PLEASE INDICATE : > 9 SURGERIES LATEX RISK : ARE YOU FREQUENTLY EXPOSED TO LATEX PRODUCTS IN YOUR OCCUPATION?NO DATE ASKED : 04/22/2020 ALCOHOL USE: NO. ALCOHOL SCREENING DID YOU HAVE A DRINK CONTAINING ALCOHOL IN THE PAST YEAR?YES HOW OFTEN DID YOU HAVE SIX OR MORE DRINKS ON ONE OCCASION IN THE PAST YEAR?NEVER (0 POINTS) HOW MANY DRINKS DID YOU HAVE ON A TYPICAL DAY WHEN YOU WERE DRINKING IN THE PAST YEAR?1 OR 2 (0 POINTS) HOW OFTEN DID YOU HAVE A DRINK CONTAINING ALCOHOL IN THE PAST YEAR?MONTHLY OR LESS (1 POINT) POINTS1 INTERPRETATIONNEGATIVE RECREATIONAL DRUG USE DRUG USE?NO CAFFEINE CAFFEINE USE?NO PEPSI 3 BOTTLES A DAY SEXUAL HX HAD SEX IN THE LAST 12 MONTHS (VAGINAL, ORAL, OR ANAL)?YES WITHWOMEN ONLY PREVENTION STRATEGIES DISCUSSED:OTHER USE PROTECTION?NO HAVE YOU EVER HAD AN STD?NO HIV / HEP-C SCREENING HIV TEST OFFERED TO PATIENT:YES DATE OFFERED:05/01/2017 TEST ACCEPTED:NO REASON:PATIENT DECLINED [employer] [id number] TEN[employer] LANGUAGE LANGUAGES SPOKEN:GREEK EDUCATION LEVEL OF EDUCATION:HIGH SCHOOL LEARNING BARRIERS / SPECIAL NEEDS CHANGE FROM LAST VISIT?NO BARRIERS TO LEARNING?NO HEARING IMPAIRED?NO VISION IMPAIRED?YES :CORRECTIVE LENSES COGNITIVELY IMPAIRED?NO READINESS TO LEARN?YES LEARNING PREFERENCES?NO LEARNING CAPABILITIES PRESENT?YES ADHD-NO DIFFICULTY WITH LEARNING EMOTIONAL BARRIERS?NO SPECIAL DEVICES?NO BUSINESS MANAGEMENT MANAGER NEEDED?NO DOMESTIC VIOLENCE DO YOU FEEL SAFE IN YOUR ENVIRONMENT?YES OCCUPATION: UNEMPLOYED. DIET: REGULAR. EXERCISE: DAILY, WALKS. MARITAL STATUS: SINGLE. OTHERS AT HOME: CHILDREN. - HAS THE PATIENT BEEN EDUCATED REGARDING HIS/HER PLAN OF CARE?YES HAS THE PATIENT BEEN EDUCATED REGARDING PAIN, THE RISK FOR PAIN, THE IMPORTANCE OF EFFECTIVE PAIN MANAGEMENT, AND THE PAIN ASSESSMENT PROCESS?YES ADVANCE DIRECTIVE ADVANCE DIRECTIVE DISCUSSED WITH PATIENT:YES 04/08/20 PT DOES NOT HAVE HCP AND DECLINES INFO AND ASSISTANCE AT THIS TIME. VITAL SIGNS WT 210 LBS, HT 65 IN, BMI 34.94 INDEX, BP 123/89 MM HG, HR 79 /MIN, RR 18 /MIN, TEMP 97.09 F, OXYGEN SAT % 97, SAFE IN ENV? (Y/N) YEST.REGINALD PINTO. EXAMINATION GENERAL EXAMINATION: GENERAL AWAKE,ALERT ,PLEASANT . PSYCH AFFECT NORMAL . LUNGS: LUNG FLOYD ARE CLEAR TO AUSCULTATION BILATERALLY. GOOD MOVEMENT OF AIR . HEART: S1, S2 IN A REGULAR RATE AND RHYTHM. NO SIGNIFICANT MURMURS, RUBS OR GALLOPS NOTED . LUMBAR: PALPATION: + FOR PAIN OVER L/S SPINE. + FOR PAIN OVER L/S PARASPINALS . DIAGNOSTIC TESTS REVIEWED MRI L/S SPINE-01/2020. 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 PROCEDURE CODES FA211 ESTABILISHED PATIENT [facility] FACILITY CHARGE DISPOSITION & COMMUNICATION FOLLOW UP POST PROCEDURE/IV PRE-SEDATE DR. Chirinos (REASON: LUMBAR EPIDURAL STEROID INJECTION L5-S1 WITH IV SEDATION) ELECTRONICALLY SIGNED BY FAM CERRATO ON 04/28/2020 AT 01:25 PM EST DISCLAIMER : THIS IS A VISIT SUMMARY EXTRACTED FROM THE [employer] CHART. IT IS NOT A COPY OF THE [employer] PROGRESS NOTE. MTDD
== END ==
LOC: M PAIN 14:30
PROVIDERS: ATTEND Nurse Practitioner Family
DX: M51.16 Intervertebral disc disorders with radiculopathy, lumbar region (principal); G89.29 Other chronic pain; J45.909 Unspecified asthma, uncomplicated; G47.33 Obstructive sleep apnea (adult) (pediatric); R25.1 Tremor, unspecified; F17.290 Nicotine dependence, other tobacco product, uncomplicated; Z86.59 Personal history of other mental and behavioral disorders; Z79.899 Other long term (current) drug therapy

== ENCOUNTER → 2020-05-01 | Outpatient (CLI) | payer MEDICARE, MEDICAID ==
[~2020-05-01] MED LIST changes: -QUET1TAB10; +QUET300T2
--- NOTE | 2020-05-05 00:22 | ECWPNPC ---
PATIENT NAME: OBED RAO : 1980 GENDER: MALE VISIT DATE: 05/01/2020 DISCHARGE DATE: 05/01/20 1537 VISIT LOCKED DATE TIME: PHYSICIAN: ANGELINA HERNANDEZ MD PHYSICIAN PAGER NO: INACTIVE RESOURCE: ANGELINA HERNANDEZ MD REASON FOR APPOINTMENT 1. PRE SEDATE FOR LUMBAR EPIDURAL STEROID INJECTION L5-S1 WITH IV SEDATION HISTORY OF PRESENT ILLNESS GENERAL: 40-YEAR-OLD MALE PATIENT WITH A HISTORY OF CHRONIC LOW BACK AND BILATERAL LEG PAIN. THE PATIENT HAS HAD THIS PAIN FOR MANY YEARS. HE HAS HAD EPIDURALS IN THE PAST THAT HAVE HELPED HIM. THE PATIENT DESCRIBES THE PAIN ACHING, BURNING, SHARP AND STABBING WITH A PAIN SCORE RANGING FROM 6-9/10. THIS IS AFFECTING HIS ABILITY TO MOVE AROUND HIS HOUSE AND DO ACTIVITIES. FALL RISK SCREENING: SCREENING :NO FALLS REPORTED IN THE LAST YEAR PAIN SCREENING: PATIENT HAS A COMPLAINT OF ACUTE OR CHRONIC PAIN :YES PAIN IS DECREASED BY:OTHERS PROCEDURE PAIN IS INCREASED BY:ACTIVITIES DURATION:CONTINOUS WHAT DOES YOUR PAIN FEEL LIKE:ACHING,BURNING,SHARP,STABBING,CONTINOUS INTENSITY OF PAIN (SCALE OF 1 TO 10):9 LOCATION OF PAIN:LOW BACK,OTHER: LOW BACK INTO BILATERAL BUTTOCKS NURSING NOTE: -. PAIN CENTER INTAKE QUESTIONS: DO YOU HAVE A HISTORY OF MRSA? :NO DO YOU TAKE A BLOOD THINNERS? :NO DO YOU HAVE ANY BLEEDING DISORDERS? :NO ANY NEW NUMBNESS OR WEAKNESS IN YOUR LEGS OR ARMS? :NO ANY PACEMAKER,DEFIBRILLATOR, OR DORSAL COLUMN STIMULATOR? :NO DO YOU HAVE ANY RASHES OR OPEN SORES? :NO ARE YOU ALLERGIC TO IV DYE? :NO ARE YOU DIABETIC? :NO ANY NEW PROBLEMS WITH YOUR MEDICATIONS? :NO HAVE YOU RECEIVED A VACCINE IN THE PAST 30 DAYS? :NO DO YOU PLAN TO RECEIVE A VACCINE IN THE NEXT 21 DAYS? :NO DO YOU NEED ANY PRESCRIPTION? :NO DO YOU TAKE ANY IMMUNOSUPPRESSIVE MEDICATIONS? :NO IS THERE A CHANCE YOU COULD BE ? :NO ARE YOU BREAST FEEDING? :NO CURRENT MEDICATIONS TAKING PROPRANOLOL HCL 20 MG TABLET 1 TABLET ORALLY TWICE A DAY TAKING PRIMIDONE 50 MG TABLET 1 ORALLY PO BID TAKING DEPAKOTE ER 500 MG TABLET EXTENDED RELEASE 24 HOUR 1 TABLET ORALLY THREE TIMES DAILY TAKING VITAMIN C 500 MG TABLET CHEWABLE 1 TABLET ORALLY ONCE A DAY- OTC TAKING EXCEDRIN TENSION HEADACHE 500-65 MG TABLET 2 TABLETS NEEDED ORALLY THREE TIMES A DAY TAKING OMEPRAZOLE 40 MG CAPSULE DELAYED RELEASE 1 CAPSULE ORALLY BID TAKING SIMVASTATIN 40 MG TABLET 1 TABLET IN THE EVENING ORALLY ONCE A DAY TAKING FLONASE ALLERGY RELIEF 50 MCG/ACT SUSPENSION 1 SPRAY IN EACH NOSTRIL NASALLY ONCE A DAY TAKING MONTELUKAST SODIUM 10 MG TABLET 1 TABLET ORALLY ONCE A DAY TAKING AYR SALINE NASAL NETI RINSE 1.57 GM PACKET DIRECTED NASALLY DAILY TAKING ALBUTEROL SULFATE HFA 108 (90 BASE) MCG/ACT AEROSOL SOLUTION 2 PUFFS NEEDED INHALATION EVERY 6 HRS TAKING VITAMIN D 50 MCG (2000 UT) CAPSULE 1 CAPSULE ORALLY ONCE A DAY TAKING AYANNA ALLERGY 180 MG TABLET 1 TABLET ORALLY ONCE A DAY TAKING NICORETTE 4 MG GUM 1 PIECE FOR 30 MINUTE NEEDED MOUTH/THROAT 24 TIME(S) A DAY TAKING RELPAX 20 MG TABLET 1 TABLET ORALLY ONCE A DAY TAKING GABAPENTIN 100 MG CAPSULE 2 CAP ORALLY FOR PAIN TID TAKING AIMOVIG 70 MG/ML SOLUTION AUTO-INJECTOR DIRECTED SUBCUTANEOUS TAKING GUANFACINE HCL 1 MG TABLET 1 TAB ORALLY ONCE A DAY NOT-TAKING KETOROLAC TROMETHAMINE 10 MG TABLET 1 TABLET WITH FOOD OR MILK NEEDED ORALLY EVERY 6 HRS NOT-TAKING KETOROLAC TROMETHAMINE 10 MG TABLET 1 TABLET WITH FOOD OR MILK NEEDED ORALLY EVERY 6 HRS NOT-TAKING BOTOX 100 UNIT SOLUTION RECONSTITUTED DIRECTED INJECTION EVERY MONTH NOT-TAKING NICOTROL 10 MG INHALER 1 CARTRIDGE NEEDED INHALATION 16 TIME(S) A DAY NOT-TAKING AMOXICILLIN 500 MG CAPSULE 1 CAPSULE ORALLY EVERY 12 HRS NOT-TAKING CYMBALTA 60 MG CAPSULE DELAYED RELEASE PARTICLES 1 CAPSULE ORALLY FOR PAIN DAILY NOT-TAKING HIBICLENS 4 % LIQUID DIRECTED EXTERNALLY DAILY AT PELVIC AREA NOT-TAKING CETIRIZINE HCL 10 MG TABLET 1 TABLET ORALLY ONCE A DAY NOT-TAKING ZOLMITRIPTAN 5 MG TABLET 1 TABLET NEEDED ONE TIME ORALLY ONCE A DAY NOT-TAKING SUCRALFATE 1 GM TABLET ORAL DIRECTED NOT-TAKING PERCOCET 10-325 MG TABLET 1 TABLET NEEDED ORALLY EVERY 6 HRS, NOTES: FOR SINUS SURGERY NOT-TAKING KEFLEX 500 MG CAPSULE 1 CAPSULE ORALLY EVERY 12 HRS MEDICATION LIST REVIEWED AND RECONCILED WITH THE PATIENT PAST MEDICAL HISTORY HIGH CHOLESTEROL BIPOLAR ADHD ALLERGIES ASTHMA SLEEP APNEA 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 COLONOSCOPY 03/2018: MILD NONSPECIFIC CHRONIC INFLAMMATION NOTED ON BIOPSY, NO ACTIVE COLITIS, DYSPLASIA OR GRANULOMA IDENTIFIED EGD 03/2018: MILD CHRONIC GASTRITIS NOTED ON BIOPSY, NO H-PYLORI RIANNA: MANAGED BY NEUROLOGY SCROTAL PAIN ED- FOLLOWING WITH UROLOGY CARTHAGE 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 INFECTION ALLERGIES SEASONAL ALLERGIES: SNEEZING, COUGHING - ALLERGY SOCIAL HISTORY GENERAL: TOBACCO USE ARE YOU A:FORMER SMOKER NICOTINE GUM HOW LONG HAS IT BEEN SINCE YOU LAST SMOKED?6-12 MONTHS SMOKING CESSATION INFORMATION GIVEN06/06/2019 LATEX QUESTIONNAIRE LATEX ALLERGY : HAVE YOU EVER DEVELOPED ANY TYPE OF REACTION AFTER HANDLING LATEX PRODUCTS SUCH RUBBER GLOVES, CONDOMS, DIAPHRAGMS, BALLOONS, SOCKS, OR UNDERWEAR?NO LATEX ALLERGY : HAVE YOU EVER DEVELOPED ANY TYPE OF REACTION DURING OR AFTER DENTAL APPOINTMENT, VAGINAL/RECTAL EXAMINATION, SURGICAL PROCEDURE, OR ANY OTHER EXPOSURE?NO DATE ASKED : 04/22/2020 LATEX RISK : HAVE YOU EVER HAD ANY DIFFICULTY BREATHING OR HIVES AFTER EATING OR HANDLING ANY FRUITS, OR VEGETABLES; SUCH KIWI, BANANAS, STONE FRUITS, OR CHESTNUTSNO LATEX RISK : DO YOU HAVE A PREVIOUS PERSONAL HISTORY OF MORE THAN NINE SURGERIES, SPINA BIFIDA, OR REPEATED CATHERIZATIONS? YES - PLEASE INDICATE : > 9 SURGERIES LATEX RISK : ARE YOU FREQUENTLY EXPOSED TO LATEX PRODUCTS IN YOUR OCCUPATION?NO ALCOHOL USE: NO. ALCOHOL SCREENING DID YOU HAVE A DRINK CONTAINING ALCOHOL IN THE PAST YEAR?YES HOW OFTEN DID YOU HAVE SIX OR MORE DRINKS ON ONE OCCASION IN THE PAST YEAR?NEVER (0 POINTS) HOW MANY DRINKS DID YOU HAVE ON A TYPICAL DAY WHEN YOU WERE DRINKING IN THE PAST YEAR?1 OR 2 (0 POINTS) HOW OFTEN DID YOU HAVE A DRINK CONTAINING ALCOHOL IN THE PAST YEAR?MONTHLY OR LESS (1 POINT) POINTS1 INTERPRETATIONNEGATIVE RECREATIONAL DRUG USE DRUG USE?NO CAFFEINE CAFFEINE USE?NO PEPSI 3 BOTTLES A DAY SEXUAL HX HAD SEX IN THE LAST 12 MONTHS (VAGINAL, ORAL, OR ANAL)?YES WITHWOMEN ONLY PREVENTION STRATEGIES DISCUSSED:OTHER USE PROTECTION?NO HAVE YOU EVER HAD AN STD?NO HIV / HEP-C SCREENING HIV TEST OFFERED TO PATIENT:YES DATE OFFERED:05/01/2017 TEST ACCEPTED:NO REASON:PATIENT DECLINED [id number] L[employer] LANGUAGES SPOKEN:[place] EDUCATION LEVEL OF EDUCATION:HIGH SCHOOL LEARNING BARRIERS / SPECIAL NEEDS CHANGE FROM LAST VISIT?NO BARRIERS TO LEARNING?NO HEARING IMPAIRED?NO VISION IMPAIRED?YES COGNITIVELY IMPAIRED?NO :CORRECTIVE LENSES READINESS TO LEARN?YES LEARNING PREFERENCES?NO LEARNING CAPABILITIES PRESENT?YES ADHD-NO DIFFICULTY WITH LEARNING EMOTIONAL BARRIERS?NO SPECIAL DEVICES?NO COKE WHEELER NEEDED?NO DOMESTIC VIOLENCE DO YOU FEEL SAFE IN YOUR ENVIRONMENT?YES OCCUPATION: UNEMPLOYED. DIET: REGULAR. EXERCISE: DAILY, WALKS. MARITAL STATUS: SINGLE. OTHERS AT HOME: CHILDREN. - HAS THE PATIENT BEEN EDUCATED REGARDING HIS/HER PLAN OF CARE?YES HAS THE PATIENT BEEN EDUCATED REGARDING PAIN, THE RISK FOR PAIN, THE IMPORTANCE OF EFFECTIVE PAIN MANAGEMENT, AND THE PAIN ASSESSMENT PROCESS?YES ADVANCE DIRECTIVE ADVANCE DIRECTIVE DISCUSSED WITH PATIENT:YES 04/08/20 PT DOES NOT HAVE HCP AND DECLINES INFO AND ASSISTANCE AT THIS TIME. REVIEW OF SYSTEMS GLAUCOMA: NOTHYROID DISEASE: NOHYPERTENSION: NOHEART DISEASE: NOLUNG DISEASE: NODIABETES: NOGI DISEASE: NO LIVER DISEASE: NO KIDNEY DISEASE: NOSTERIOD USE: NONEUROLOGICAL DISEASE: NOBACK PROBLEMS: YES, PAINEXTREMITIES: YES, PAINGENITOURINARY: NOBLEEDING DISORDER: NOASA CLASS: IIAIRWAY CLASS: II. VITAL SIGNS WT 214.4 LBS, HT 65 IN, BMI 35.67 INDEX, BP 117/75 MM HG, HR 80 /MIN, RR 20 /MIN, TEMP 98.1 F, OXYGEN SAT % 96%, SAFE IN ENV? (Y/N) YES, NA INITIALS SC 14:29, REVIEWED BY: Armando MONTIEL RN . EXAMINATION GENERAL EXAMINATION: THE PATIENT IS ALERT, ORIENTED TIMES THREE AND COOPERATIVE. LUNGS ARE CLEAR TO AUSCULTATION. HEART SHOWS REGULAR RHYTHM, NO MURMURS AND NO GALLOPS. MRI OF THE LUMBAR SPINE DATED 02/18/2020 SHOWS SOME BULGING DISC AT L4-L5. ASSESSMENTS INTERVERTEBRAL DISC DISORDERS WITH RADICULOPATHY, LUMBOSACRAL REGION - M51.17 (PRIMARY) TREATMENT INTERVERTEBRAL DISC DISORDERS WITH RADICULOPATHY, LUMBOSACRAL REGION OXYGEN AT 2 LITERS PER NASAL CANNULA (ORDERED FOR 05/29/2020) IV LACTATED RINGER'S AT KVO (ORDERED FOR 05/29/2020) MEDICATION: VERSED 1MG IV (MIDAZOLAM) (ORDERED FOR 05/29/2020) MEDICATION: FENTANYL CITRATE 50MCG IV (ORDERED FOR 05/29/2020) CLINICAL NOTES: I DISCUSSED ALTERNATIVES WITH MR. RAO. WE AGREE ON MOVING FORWARD WITH A LUMBAR EPIDURAL STEROID INJECTION WITH IV SEDATION DUE TO ANXIETY AND DISCOMFORT ASSOCIATED WITH THE PROCEDURE. I DISCUSSED THE USE OF STEROIDS AND THE POSSIBLE IMMUNOSUPPRESSION AND EFFECTIVENESS OF THE COVID VACCINE. I AM LOOKING FOR LONG LASTING PAIN RELIEF. THE PATIENT REPORTS UNDERSTANDING AND AGREES WITH THE PLAN. I, JANET LOPEZ, DOCUMENTED THE ABOVE INFORMATION ACTING A SCRIBE FOR DR. HERNANDEZ. I HAVE REVIEWED THE ABOVE DOCUMENT, WRITTEN BY JANET LOPEZ, PROCUREMENT DIRECTOR, AND I VERIFY THAT IT IS ACCURATE. PROCEDURE CODES FA211 ESTABILISHED PATIENT [facility] CHARGE [id number] OFFICE/OUTPATIENT VISIT EST DISPOSITION & COMMUNICATION FOLLOW UP OKAY TO BOOK (REASON: LUMBAR EPIDURAL STEROID INJECTION) ELECTRONICALLY SIGNED BY ANGELINA HERNANDEZ MD, MD ON 05/04/2020 AT 12:23 PM EST DISCLAIMER : THIS IS A VISIT SUMMARY EXTRACTED FROM THE [employer] CHART. IT IS NOT A COPY OF THE [employer] PROGRESS NOTE. MARY
== END ==
LOC: M PAIN 14:30
PROVIDERS: ATTEND Anesthesiology
DX: M51.17 Intervertebral disc disorders with radiculopathy, lumbosacral region (principal); G89.29 Other chronic pain; J45.909 Unspecified asthma, uncomplicated; G47.33 Obstructive sleep apnea (adult) (pediatric); R25.1 Tremor, unspecified; F17.290 Nicotine dependence, other tobacco product, uncomplicated; Z86.59 Personal history of other mental and behavioral disorders; Z79.899 Other long term (current) drug therapy

== ENCOUNTER → 2020-05-02 | Outpatient (CLI) | payer MEDICARE, MEDICAID | LOC: M LABSMTC 10:48 | PROVIDERS: ATTEND Anesthesiology | DX: Z20.822 Contact with and (suspected) exposure to COVID-19 (principal) ==

== ENCOUNTER → 2020-05-07 | Outpatient (CLI) | payer MEDICARE, MEDICAID ==
[~2020-05-07] MED LIST changes: +ISOVUE-M 300 61% 15ML VIAL As Ordered ONE; +LIDOCAINE 1% SDV 30ML VIAL As Ordered ONE; +MIDAZOLAM INJ 2MG/2ML VIAL (J2250 PER 1MG) As Ordered ONE; +fentaNYL 100 MCG/2 ML INJECTION (J3010) As Ordered ONE; +methylPREDNISolone SUSP 40MG/ML 1ML VIAL (DEPO MEDROL) As Ordered ONE
--- NOTE | 2020-05-07 10:24 | REP ---
INDICATION: LESI //PAIN. COMPARISON: None. TECHNIQUE: Intraoperative fluoroscopic imaging portable C-arm technique. FINDINGS: Images demonstrate catheter and contrast overlying the lower lumbar spine. Total fluoroscopic time 7.7 seconds. IMPRESSION: Images consistent with lumbar spine injection. <Electronically signed by Emerson Herrera > 05/07/20 1027
--- NOTE | 2020-05-08 02:20 | ECWPNPC ---
PATIENT NAME: OBED RAO : 1980 GENDER: MALE VISIT DATE: 05/07/2020 DISCHARGE DATE: 05/07/20 1021 VISIT LOCKED DATE TIME: PHYSICIAN: ANGELINA HERNANDEZ MD PHYSICIAN PAGER NO: INACTIVE RESOURCE: ANGELINA HERNANDZE MD REASON FOR APPOINTMENT 1. LUMBAR EPIDURAL STEROID INJECTION HISTORY OF PRESENT ILLNESS GENERAL: -. FALL RISK SCREENING: SCREENING :NO FALLS REPORTED IN THE LAST YEAR PAIN SCREENING: PATIENT HAS A COMPLAINT OF ACUTE OR CHRONIC PAIN :YES LOCATION OF PAIN:LOW BACK,OTHER: LOW BACK INTO BILATERAL BUTTOCKS INTENSITY OF PAIN (SCALE OF 1 TO 10):9 WHAT DOES YOUR PAIN FEEL LIKE:ACHING, BURNING, SHARP, STABBING, CONTINOUS, TENDER, THROBBING DURATION:CONTINOUS, AWAKENS FROM SLEEP PAIN IS INCREASED BY:ACTIVITIES PAIN IS DECREASED BY:OTHERS PROCEDURE PLAN/GOALS/TREATMENT/INTERVENTION/FOLLOW UP:SEE PLAN PAIN CENTER INTAKE QUESTIONS: DO YOU HAVE A HISTORY OF MRSA? :NO DO YOU TAKE A BLOOD THINNERS? :NO DO YOU HAVE ANY BLEEDING DISORDERS? :NO ANY NEW NUMBNESS OR WEAKNESS IN YOUR LEGS OR ARMS? :NO ANY PACEMAKER,DEFIBRILLATOR, OR DORSAL COLUMN STIMULATOR? :NO DO YOU HAVE ANY RASHES OR OPEN SORES? :NO ARE YOU ALLERGIC TO IV DYE? :NO ARE YOU DIABETIC? :NO ANY NEW PROBLEMS WITH YOUR MEDICATIONS? :NO HAVE YOU RECEIVED A VACCINE IN THE PAST 30 DAYS? :NO DO YOU PLAN TO RECEIVE A VACCINE IN THE NEXT 21 DAYS? :NO DO YOU NEED ANY PRESCRIPTION? :NO DO YOU TAKE ANY IMMUNOSUPPRESSIVE MEDICATIONS? :NO ANY HISTORY OF SEIZURES? :NO ANY HISTORY OF CARDIAC ISSUES OR EVENTS? :NO DO YOU HAVE SLEEP APNEA? :YES DO YOU WEAR A CPAP?YES ANY RECENT HEAD INJURY? :NO DO YOU HAVE ANY NEW INFECTIONS? :NO IS THERE A CHANCE YOU COULD BE ? :NO ARE YOU BREAST FEEDING? :NO WHEN DID YOU LAST EAT? : 05/06/201999 WHEN DID YOU LAST DRINK? : 05/07/202099 WHAT DID YOU LAST DRINK? : WATER NAME OF PERSON DRIVING YOU HOME? : MOM (MISTY) DO YOU HAVE ANY OTHER QUESTIONS OR CONCERNS? : NO CURRENT MEDICATIONS TAKING PROPRANOLOL HCL 20 MG TABLET 1 TABLET ORALLY TWICE A DAY, NOTES: 05/06/202099 TAKING PRIMIDONE 50 MG TABLET 1 ORALLY PO BID TAKING DEPAKOTE ER 500 MG TABLET EXTENDED RELEASE 24 HOUR 1 TABLET ORALLY THREE TIMES DAILY TAKING VITAMIN C 500 MG TABLET CHEWABLE 1 TABLET ORALLY ONCE A DAY- OTC TAKING EXCEDRIN TENSION HEADACHE 500-65 MG TABLET 2 TABLETS NEEDED ORALLY THREE TIMES A DAY TAKING OMEPRAZOLE 40 MG CAPSULE DELAYED RELEASE 1 CAPSULE ORALLY BID TAKING SIMVASTATIN 40 MG TABLET 1 TABLET IN THE EVENING ORALLY ONCE A DAY TAKING FLONASE ALLERGY RELIEF 50 MCG/ACT SUSPENSION 1 SPRAY IN EACH NOSTRIL NASALLY ONCE A DAY TAKING MONTELUKAST SODIUM 10 MG TABLET 1 TABLET ORALLY ONCE A DAY TAKING AYR SALINE NASAL NETI RINSE 1.57 GM PACKET DIRECTED NASALLY DAILY TAKING ALBUTEROL SULFATE HFA 108 (90 BASE) MCG/ACT AEROSOL SOLUTION 2 PUFFS NEEDED INHALATION EVERY 6 HRS TAKING VITAMIN D 50 MCG (2000 UT) CAPSULE 1 CAPSULE ORALLY ONCE A DAY TAKING AYANNA ALLERGY 180 MG TABLET 1 TABLET ORALLY ONCE A DAY TAKING NICORETTE 4 MG GUM 1 PIECE FOR 30 MINUTE NEEDED MOUTH/THROAT 24 TIME(S) A DAY TAKING RELPAX 20 MG TABLET 1 TABLET ORALLY ONCE A DAY PRN TAKING GABAPENTIN 100 MG CAPSULE 2 CAP ORALLY FOR PAIN TID, NOTES: 05/06/202099 TAKING AIMOVIG 70 MG/ML SOLUTION AUTO-INJECTOR DIRECTED SUBCUTANEOUS TAKING GUANFACINE HCL 1 MG TABLET 1 TAB ORALLY ONCE A DAY NOT-TAKING KETOROLAC TROMETHAMINE 10 MG TABLET 1 TABLET WITH FOOD OR MILK NEEDED ORALLY EVERY 6 HRS NOT-TAKING KETOROLAC TROMETHAMINE 10 MG TABLET 1 TABLET WITH FOOD OR MILK NEEDED ORALLY EVERY 6 HRS NOT-TAKING BOTOX 100 UNIT SOLUTION RECONSTITUTED DIRECTED INJECTION EVERY MONTH NOT-TAKING NICOTROL 10 MG INHALER 1 CARTRIDGE NEEDED INHALATION 16 TIME(S) A DAY NOT-TAKING AMOXICILLIN 500 MG CAPSULE 1 CAPSULE ORALLY EVERY 12 HRS NOT-TAKING CYMBALTA 60 MG CAPSULE DELAYED RELEASE PARTICLES 1 CAPSULE ORALLY FOR PAIN DAILY NOT-TAKING HIBICLENS 4 % LIQUID DIRECTED EXTERNALLY DAILY AT PELVIC AREA NOT-TAKING CETIRIZINE HCL 10 MG TABLET 1 TABLET ORALLY ONCE A DAY NOT-TAKING ZOLMITRIPTAN 5 MG TABLET 1 TABLET NEEDED ONE TIME ORALLY ONCE A DAY NOT-TAKING SUCRALFATE 1 GM TABLET ORAL DIRECTED NOT-TAKING PERCOCET 10-325 MG TABLET 1 TABLET NEEDED ORALLY EVERY 6 HRS, NOTES: FOR SINUS SURGERY NOT-TAKING KEFLEX 500 MG CAPSULE 1 CAPSULE ORALLY EVERY 12 HRS MEDICATION LIST REVIEWED AND RECONCILED WITH THE PATIENT PAST MEDICAL HISTORY HIGH CHOLESTEROL BIPOLAR ADHD ALLERGIES ASTHMA SLEEP APNEA 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 COLONOSCOPY 03/2018: MILD NONSPECIFIC CHRONIC INFLAMMATION NOTED ON BIOPSY, NO ACTIVE COLITIS, DYSPLASIA OR GRANULOMA IDENTIFIED EGD 03/2018: MILD CHRONIC GASTRITIS NOTED ON BIOPSY, NO H-PYLORI RIANNA: MANAGED BY NEUROLOGY SCROTAL PAIN ED- FOLLOWING WITH UROLOGY CARTHAGE 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 INFECTION ALLERGIES SEASONAL ALLERGIES: SNEEZING, COUGHING - ALLERGY SOCIAL HISTORY GENERAL: TOBACCO USE ARE YOU A:FORMER SMOKER NICOTINE GUM HOW LONG HAS IT BEEN SINCE YOU LAST SMOKED?6-12 MONTHS SMOKING CESSATION INFORMATION GIVEN06/06/2019 LATEX QUESTIONNAIRE LATEX ALLERGY : HAVE YOU EVER DEVELOPED ANY TYPE OF REACTION AFTER HANDLING LATEX PRODUCTS SUCH RUBBER GLOVES, CONDOMS, DIAPHRAGMS, BALLOONS, SOCKS, OR UNDERWEAR?NO LATEX ALLERGY : HAVE YOU EVER DEVELOPED ANY TYPE OF REACTION DURING OR AFTER DENTAL APPOINTMENT, VAGINAL/RECTAL EXAMINATION, SURGICAL PROCEDURE, OR ANY OTHER EXPOSURE?NO LATEX RISK : HAVE YOU EVER HAD ANY DIFFICULTY BREATHING OR HIVES AFTER EATING OR HANDLING ANY FRUITS, OR VEGETABLES; SUCH KIWI, BANANAS, STONE FRUITS, OR CHESTNUTSNO LATEX RISK : DO YOU HAVE A PREVIOUS PERSONAL HISTORY OF MORE THAN NINE SURGERIES, SPINA BIFIDA, OR REPEATED CATHERIZATIONS? YES - PLEASE INDICATE : > 9 SURGERIES LATEX RISK : ARE YOU FREQUENTLY EXPOSED TO LATEX PRODUCTS IN YOUR OCCUPATION?NO DATE ASKED : 05/06/2020 ALCOHOL USE: NO. ALCOHOL SCREENING DID YOU HAVE A DRINK CONTAINING ALCOHOL IN THE PAST YEAR?YES HOW OFTEN DID YOU HAVE SIX OR MORE DRINKS ON ONE OCCASION IN THE PAST YEAR?NEVER (0 POINTS) HOW MANY DRINKS DID YOU HAVE ON A TYPICAL DAY WHEN YOU WERE DRINKING IN THE PAST YEAR?1 OR 2 (0 POINTS) HOW OFTEN DID YOU HAVE A DRINK CONTAINING ALCOHOL IN THE PAST YEAR?MONTHLY OR LESS (1 POINT) POINTS1 INTERPRETATIONNEGATIVE RECREATIONAL DRUG USE DRUG USE?NO CAFFEINE CAFFEINE USE?NO PEPSI 3 BOTTLES A DAY SEXUAL HX HAD SEX IN THE LAST 12 MONTHS (VAGINAL, ORAL, OR ANAL)?YES WITHWOMEN ONLY PREVENTION STRATEGIES DISCUSSED:OTHER USE PROTECTION?NO HAVE YOU EVER HAD AN STD?NO HIV / HEP-C SCREENING HIV TEST OFFERED TO PATIENT:YES DATE OFFERED:05/01/2017 TEST ACCEPTED:NO REASON:PATIENT DECLINED ISLAM [id number] RELIGIOUS LANGUAGE LANGUAGES SPOKEN:TAJIK EDUCATION LEVEL OF EDUCATION:HIGH SCHOOL LEARNING BARRIERS / SPECIAL NEEDS CHANGE FROM LAST VISIT?NO BARRIERS TO LEARNING?NO HEARING IMPAIRED?NO VISION IMPAIRED?YES COGNITIVELY IMPAIRED?NO :CORRECTIVE LENSES READINESS TO LEARN?YES LEARNING PREFERENCES?NO LEARNING CAPABILITIES PRESENT?YES ADHD-NO DIFFICULTY WITH LEARNING EMOTIONAL BARRIERS?NO SPECIAL DEVICES?NO STONE MASON NEEDED?NO DOMESTIC VIOLENCE DO YOU FEEL SAFE IN YOUR ENVIRONMENT?YES OCCUPATION: UNEMPLOYED. DIET: REGULAR. EXERCISE: DAILY, WALKS. MARITAL STATUS: SINGLE. OTHERS AT HOME: CHILDREN. - HAS THE PATIENT BEEN EDUCATED REGARDING HIS/HER PLAN OF CARE?YES HAS THE PATIENT BEEN EDUCATED REGARDING PAIN, THE RISK FOR PAIN, THE IMPORTANCE OF EFFECTIVE PAIN MANAGEMENT, AND THE PAIN ASSESSMENT PROCESS?YES ADVANCE DIRECTIVE ADVANCE DIRECTIVE DISCUSSED WITH PATIENT:YES 04/08/20 PT DOES NOT HAVE HCP AND DECLINES INFO AND ASSISTANCE AT THIS TIME. VITAL SIGNS WT 212.2 LBS, HT 65 IN, BMI 35.31 INDEX, BP 128/82 MM HG, HR 74 /MIN, RR 20 /MIN, TEMP 97.6 F, OXYGEN SAT % 97%, SAFE IN ENV? (Y/N) YES, NA INITIALS SC 08:33, REVIEWED BY: Jenn JEFFERY RN BSN. EXAMINATION GENERAL EXAMINATION: A HISTORY AND PHYSICAL EXAM ON THE PATIENT WAS DONE ON 05/01/2020 (DATE OF ORIGINAL ASSESSMENT) IN PREPARATION OF SURGERY/PROCEDURE. I HAVE NOW REASSESSED THIS PATIENT'S HEALTH STATUS AND PERFORMED AN UPDATED EXAM TODAY. ALL CHANGES IN THE PATIENT'S HISTORY, PHYSICAL EXAM, PRE-EXISTING CONDITONS, AND INDICATIONS/CONTRAINDICATIONS TO THE PLANNED PROCEDURE AND ANESTHESIA ARE DOCUMENTED AND EVALUATED BELOW. I ATTEST TO THE ADEQUACY AND APPROPRIATENESS OF MY ASSESSMENT, AND CONFIRM THE NECESSITY FOR THE PLANNED PROCEDURE. THE PATIENT IS ALERT, ORIENTED TIMES THREE AND COOPERATIVE. LUNGS ARE CLEAR TO AUSCULTATION. HEART SHOWS REGULAR RHYTHM, NO MURMURS AND NO GALLOPS. ASSESSMENTS INTERVERTEBRAL DISC DISORDERS WITH RADICULOPATHY, LUMBAR REGION - M51.16 (PRIMARY) TREATMENT INTERVERTEBRAL DISC DISORDERS WITH RADICULOPATHY, LUMBAR REGION [facility] FLUORO GUIDE SPINE INJECTION (PAIN)[id number] COMPLETION OF PROCEDURAL VISIT WHEN MEETS CRITERIA THIS PROCEDURE WAS REVIEWED BY CAROLYN JEFFERY ON 05/07/2020 AT 17:24 PM EST MEDICATION: VERSED 1MG IV (MIDAZOLAM)ROMULO SARKAR 05/07/2020 8:47:50 AM > VERIFIED SANTHOSH ODZIER R 05/07/2020 9:56:38 AM > GIVEN AT 0933. TOTAL OF 1MG MEDICATION: FENTANYL CITRATE 50MCG IV ROMULO SARKAR 05/07/2020 8:48:04 AM > VERIFIED SANTHOSH DOZIER R 05/07/2020 9:57:12 AM > GIVEN AT 0934. TOTAL OF 50 MCG OXYGEN AT 2 LITERS PER NASAL CANNULACAROLYN JEFFERY 05/07/2020 9:53:13 AM > OXYGEN ON: 0917 OXYGEN OFF: 0943. IV LACTATED RINGER'S AT KVOPETRASSANTHOSH R 05/07/2020 8:41:14 AM > 22G PLACED INTO LEFT HAND. FLUSHING WELL, DSD APPPLIED. SANTHOSH DOZIER 05/07/2020 8:41:37 AM > 1ST ATTEMPT CAROLYN JEFFERY 05/07/2020 10:30:01 AM > TOTAL OF 450CCS OF LR GIVEN. OTHERS NOTES: 05/06/20 0840 PAT COMPLETED. Jenn JEFFERY RN BSN. PROCEDURES PAIN NURSING RECORD PROCEDURE IN ROOM 0914, PHYSICIAN IN ROOM 0932, START 0937, FINISH 0941, PHYSICIAN OUT OF ROOM 0942, OUT OF ROOM 0946 PATIENT TRANSPORTED TO RECOVERY ROOM VIA STRETCHER DUE TO IV SEDATION., ECG NORMAL SINUS, PATIENT SHIELDED YES, SAFETY STRAP YES, PREP BETADINE SVITLANA PUBLICATIONS WRITER, DRESSING [facility] DR. HERNANDEZ LOC: CAROLYN JEFFERY 05/07/2020 9:14:10 AM > 1. ALERT, ORIENTED, LOC REMAINED AT BASELINE THROUGHOUT THE PROCEDURE RESP: CHANA JEFFERYISSA 05/07/2020 9:14:10 AM > 1. REGULAR, NO DYSPNEA, RESPIRATORY STATUS REMAINED THE SAME THROUGHOUT PROCEDURE. NO S/S OF RESPIRATORY COMPROMISE NOTED. COLOR: CHANA JEFFERYISSA 05/07/2020 9:14:10 AM > 1. PINK, SKIN COLOR WARM, DRY, PINK THROUGHOUT PROCEDURE. SKIN: CHANA JEFFERYISSA 05/07/2020 9:14:10 AM > 1. WARM, DRY; SKIN COLOR WARM, DRY, PINK THROUGHOUT PROCEDURE. POSITION: CAROLYN JEFFERY 05/07/2020 9:14:10 AM > 1. PRONE NO CHANGE IN PATIENT'S POSITION DURING PROCEDURE. VITALS: CAROLYN JEFFERY 05/07/2020 9:14:22 AM > 133/83, 67, 99% 2L NC, 12. CAROLYN JEFFERY 05/07/2020 9:27:33 AM > 132/82, 64, 100% 2L NC, 12. CAROLYN JEFFERY 05/07/2020 9:38:32 AM > 129/77, 64, 99% 2L NC, 12. CAROLYN JEFFERY 05/07/2020 9:42:02 AM > 128/76, 68, 99% 2L NC, 12. CAROLYN JEFFERY 05/07/2020 9:44:02 AM > 129/76, 64, 98% RA, 12. CAROLYN JEFFERY 05/07/2020 9:58:08 AM > POST PROCEDURE 131/81, 72, 96% RA, 12. COMPLETION OF PROCEDURE APPOINTMENT: POST PAIN 0/10, DRESSING SITE DRY AND INTACT, IV DISCONTINUED, SITE CLEAR, CATHETER INTACT, GAIT STEADY, TEACHING COMPLETED, PATIENT ACKNOWLEDGES UNDERSTANDING YES, PROCEDURE APPOINTMENT COMPLETED AT BY: Jenn JEFFERY RN AT 1011. PRE PROCEDURE DIAGNOSIS LUMBAR DISC DISORDER WITH RADICULOPATHY POST PROCEDURE DIAGNOSIS LUMBAR DISC DISORDER WITH RADICULOPATHY PROCEDURE LUMBAR EPIDURAL STEROID INJECTION UNDER FLUOROSCOPIC GUIDANCE SURGEON DR. ANGELINA HERNANDEZ FOUNDER AND CHIEF EXECUTIVE OFFICER NONE ANESTHESIA LOCAL WITH IV SEDATION PRE PROCEDURE NOTE THE PATIENT HAS A HISTORY OF CHRONIC LOW BACK PAIN. I EVALUATED THE PATIENT AND REVIEWED THE CHART. I WENT OVER THE RISKS, ALTERNATIVES, AND BENEFITS ASSOCIATED WITH THIS PROCEDURE. THE PATIENT WOULD LIKE TO PROCEED AND GIVE CONSENT TO PERFORMED THE PROCEDURE. THE PATIENT WOULD LIKE TO MOVE FORWARD WITH IV SEDATION DUE TO ANXIETY AND DISCOMFORT ASSOCIATED WITH THE PROCEDURE. THE PATIENT DENIES UNEXPLAINABLE WEIGHT LOSS, FEVER, CHILLS, OR NEW CHANGES IN URINARY OR BOWEL CONTROL. PATIENT IS COVID-19 NEGATIVE. DESCRIPTION OF PROCEDURE THE PATIENT WAS BROUGHT TO THE PROCEDURE ROOM AND PLACED IN THE PRONE POSITION. THE LUMBOSACRAL AREA WAS CLEANED WITH BETADINE SOLUTION AND DRAPED ASEPTICALLY. THE PROCEDURE WAS DONE UNDER STERILE CONDITIONS. A TIMEOUT WAS PERFORMED WHERE THE CONSENTED SITE WAS VERIFIED WITH EVERYONE IN THE ROOM. UNDER FLUOROSCOPIC GUIDANCE, THE TARGET POINT WAS SELECTED AT THE INTERLAMINAR LEVEL OF L4-L5. I CONFIRMED AGAIN THE SITE OF THE TARGET. LIDOCAINE WAS USED TO NUMB THE SKIN AND THE SUBCUTANEOUS TISSUE BELOW IT. EPIDURAL TUOHY NEEDLE, 17-GAUGE, WAS ADVANCED UNDER FLUOROSCOPIC GUIDANCE AND FOLLOWING PATIENT FEEDBACK UNTIL THE EPIDURAL SPACE WAS REACHED 7 CM DEEP INTO THE SKIN BY THE LOSS OF RESISTANCE TECHNIQUE. ISOVUE-M DYE 30%, 0.25 ML, WAS INJECTED SHOWING ADEQUATE SPREAD OF THE DYE. THEN, A SOLUTION OF 3 ML OF NORMAL SALINE WITH DEPO-MEDROL 40 MG WAS INJECTED SLOWLY FOLLOWING PATIENT FEEDBACK. THE MEDICATIONS WERE VERIFIED WITH THE NURSE. THERE WAS NO EVIDENCE OF BLOOD, PARESTHESIA OR CEREBROSPINAL FLUID DURING THE PROCEDURE. THE PATIENT WAS SENT TO THE RECOVERY ROOM. THE PATIENT WAS MOVING THE EXTREMITIES AND DOING WELL. THERE WERE NO COMPLICATIONS DURING THE PROCEDURE. ESTIMATED BLOOD LOSS WAS LESS THAN 5 ML. FLUOROSCOPY TIME WAS 7 SECONDS. THE PATIENT RECEIVED VERSED 1 MG AND FENTANYL 50 MCG IV IN DIVIDED DOSES. FACE TO FACE START TIME: 932 FACE TO FACE END TIME: 942 TOTAL FACE TO FACE TIME: 10 MINUTES POST PROCEDURE NOTE THE PATIENT WILL BE SEEN IN A FOLLOW UP IN THE NEXT FEW WEEKS. I AM LOOKING FOR LONG LASTING RELIEF FOR THE PATIENT WITH THIS INTERVENTION. INSTRUCTIONS WERE GIVEN, QUESTIONS WERE ANSWERED, AND THE PATIENT EXPRESSED UNDERSTANDING AND AGREES WITH THE PLAN. I, CAROLYN KAUR, DOCUMENTED THE ABOVE INFORMATION ACTING A SCRIBE FOR DR. HERNANDEZ. I HAVE REVIEWED THE ABOVE DOCUMENT, WRITTEN BY CAROLYN KAUR, PLUMBING ENGINEER, AND I VERIFY THAT IT IS ACCURATE PROCEDURE CODES 55425 LUMBAR/SACRAL W/ IMAGING 23163 MOD SED SAME PHYS/QHP 5/>YRS DISPOSITION & COMMUNICATION FOLLOW UP FOLLOW UP WITH COMMUNITY SERVICE COORDINATOR (REASON: POST LUMBAR EPIDURAL STEROID INJECTION) ELECTRONICALLY SIGNED BY ANGELINA HERNANDEZ MD, MD ON 05/07/2020 AT 12:56 PM EST DISCLAIMER : THIS IS A VISIT SUMMARY EXTRACTED FROM THE [employer] CHART. IT IS NOT A COPY OF THE [employer] PROGRESS NOTE. MARY
== END ==
LOC: M PAIN 08:00
PROVIDERS: ATTEND Anesthesiology
DX: M51.16 Intervertebral disc disorders with radiculopathy, lumbar region (principal); G47.30 Sleep apnea, unspecified; J45.909 Unspecified asthma, uncomplicated; R25.1 Tremor, unspecified; F17.290 Nicotine dependence, other tobacco product, uncomplicated; Z86.59 Personal history of other mental and behavioral disorders; Z79.899 Other long term (current) drug therapy
CPT/HCPCS: 62323; 99152; J1030; J2250; J3010; Q9967

== ENCOUNTER → 2020-05-21 | Outpatient (CLI) | payer MEDICARE, MEDICAID ==
[~2020-05-21] MED LIST changes: -ISOVUE-M 300 61% 15ML VIAL As Ordered ONE; -LIDOCAINE 1% SDV 30ML VIAL As Ordered ONE; -MIDAZOLAM INJ 2MG/2ML VIAL (J2250 PER 1MG) As Ordered ONE; -fentaNYL 100 MCG/2 ML INJECTION (J3010) As Ordered ONE; -methylPREDNISolone SUSP 40MG/ML 1ML VIAL (DEPO MEDROL) As Ordered ONE
--- NOTE | 2020-05-27 04:01 | ECWPNPC ---
PATIENT NAME: OBED RAO : 1980 GENDER: MALE VISIT DATE: 05/21/2020 DISCHARGE DATE: 05/21/20 1505 VISIT LOCKED DATE TIME: PHYSICIAN: BROCK QUIGLEY PHYSICIAN PAGER NO: INACTIVE RESOURCE: BROCK QUIGLEY REASON FOR APPOINTMENT 1. POST LUMBAR EPIDURAL STEROID INJECTION L5-S1 WITH IV SEDATION HISTORY OF PRESENT ILLNESS GENERAL: HERE FOR POST PROCEDURE F/U.HAD LESI W IV SEDATION ON 05/07/20.DOING WELL WITH LESS LBP AND IMPROVED ACTIVITY TOLERANCE POST PROCEDURE.CONTINUES TO BENEFIT FROM GROIN PAIN AFTER LAST INJECTION SEVERAL MONTHS AGO.-. FALL RISK SCREENING: SCREENING :NO FALLS REPORTED IN THE LAST YEAR PAIN SCREENING: PATIENT HAS A COMPLAINT OF ACUTE OR CHRONIC PAIN :YES LOCATION OF PAIN:LOW BACK INTENSITY OF PAIN (SCALE OF 1 TO 10):5 WHAT DOES YOUR PAIN FEEL LIKE:ACHING, BURNING, STABBING, TENDER, SHOOTING DURATION:CONTINOUS, CONSTANT, ALL DAY PAIN IS INCREASED BY:ACTIVITIES PAIN IS DECREASED BY:USE OF PAIN MEDICATIONS NURSING NOTE: -. PAIN CENTER INTAKE QUESTIONS: DO YOU HAVE A HISTORY OF MRSA? :NO DO YOU TAKE A BLOOD THINNERS? :NO DO YOU HAVE ANY BLEEDING DISORDERS? :NO ANY NEW NUMBNESS OR WEAKNESS IN YOUR LEGS OR ARMS? :NO ANY PACEMAKER,DEFIBRILLATOR, OR DORSAL COLUMN STIMULATOR? :NO DO YOU HAVE ANY RASHES OR OPEN SORES? :NO ARE YOU ALLERGIC TO IV DYE? :NO ARE YOU DIABETIC? :NO ANY NEW PROBLEMS WITH YOUR MEDICATIONS? :NO HAVE YOU RECEIVED A VACCINE IN THE PAST 30 DAYS? :NO DO YOU PLAN TO RECEIVE A VACCINE IN THE NEXT 21 DAYS? :NO DO YOU NEED ANY PRESCRIPTION? :NO FABIOLA DO YOU TAKE ANY IMMUNOSUPPRESSIVE MEDICATIONS? :NO IS THERE A CHANCE YOU COULD BE ? :NO ARE YOU BREAST FEEDING? :NO CURRENT MEDICATIONS TAKING PROPRANOLOL HCL 20 MG TABLET 1 TABLET ORALLY TWICE A DAY TAKING PRIMIDONE 50 MG TABLET 1 ORALLY PO BID TAKING DEPAKOTE ER 500 MG TABLET EXTENDED RELEASE 24 HOUR 1 TABLET ORALLY THREE TIMES DAILY TAKING VITAMIN C 500 MG TABLET CHEWABLE 1 TABLET ORALLY ONCE A DAY- OTC TAKING EXCEDRIN TENSION HEADACHE 500-65 MG TABLET 2 TABLETS NEEDED ORALLY THREE TIMES A DAY TAKING OMEPRAZOLE 40 MG CAPSULE DELAYED RELEASE 1 CAPSULE ORALLY BID TAKING SIMVASTATIN 40 MG TABLET 1 TABLET IN THE EVENING ORALLY ONCE A DAY TAKING FLONASE ALLERGY RELIEF 50 MCG/ACT SUSPENSION 1 SPRAY IN EACH NOSTRIL NASALLY ONCE A DAY TAKING MONTELUKAST SODIUM 10 MG TABLET 1 TABLET ORALLY ONCE A DAY TAKING AYR SALINE NASAL NETI RINSE 1.57 GM PACKET DIRECTED NASALLY DAILY TAKING ALBUTEROL SULFATE HFA 108 (90 BASE) MCG/ACT AEROSOL SOLUTION 2 PUFFS NEEDED INHALATION EVERY 6 HRS TAKING VITAMIN D 50 MCG (2000 UT) CAPSULE 1 CAPSULE ORALLY ONCE A DAY TAKING AYANNA ALLERGY 180 MG TABLET 1 TABLET ORALLY ONCE A DAY TAKING NICORETTE 4 MG GUM 1 PIECE FOR 30 MINUTE NEEDED MOUTH/THROAT 24 TIME(S) A DAY TAKING RELPAX 20 MG TABLET 1 TABLET ORALLY ONCE A DAY PRN TAKING GABAPENTIN 100 MG CAPSULE 2 CAP ORALLY FOR PAIN TID, NOTES: 05/06/202099 TAKING AIMOVIG 70 MG/ML SOLUTION AUTO-INJECTOR DIRECTED SUBCUTANEOUS TAKING GUANFACINE HCL 1 MG TABLET 1 TAB ORALLY ONCE A DAY NOT-TAKING KETOROLAC TROMETHAMINE 10 MG TABLET 1 TABLET WITH FOOD OR MILK NEEDED ORALLY EVERY 6 HRS NOT-TAKING KETOROLAC TROMETHAMINE 10 MG TABLET 1 TABLET WITH FOOD OR MILK NEEDED ORALLY EVERY 6 HRS NOT-TAKING BOTOX 100 UNIT SOLUTION RECONSTITUTED DIRECTED INJECTION EVERY MONTH NOT-TAKING NICOTROL 10 MG INHALER 1 CARTRIDGE NEEDED INHALATION 16 TIME(S) A DAY NOT-TAKING AMOXICILLIN 500 MG CAPSULE 1 CAPSULE ORALLY EVERY 12 HRS NOT-TAKING CYMBALTA 60 MG CAPSULE DELAYED RELEASE PARTICLES 1 CAPSULE ORALLY FOR PAIN DAILY NOT-TAKING HIBICLENS 4 % LIQUID DIRECTED EXTERNALLY DAILY AT PELVIC AREA NOT-TAKING CETIRIZINE HCL 10 MG TABLET 1 TABLET ORALLY ONCE A DAY NOT-TAKING ZOLMITRIPTAN 5 MG TABLET 1 TABLET NEEDED ONE TIME ORALLY ONCE A DAY NOT-TAKING SUCRALFATE 1 GM TABLET ORAL DIRECTED NOT-TAKING PERCOCET 10-325 MG TABLET 1 TABLET NEEDED ORALLY EVERY 6 HRS, NOTES: FOR SINUS SURGERY NOT-TAKING KEFLEX 500 MG CAPSULE 1 CAPSULE ORALLY EVERY 12 HRS MEDICATION LIST REVIEWED AND RECONCILED WITH THE PATIENT PAST MEDICAL HISTORY HIGH CHOLESTEROL BIPOLAR ADHD ALLERGIES ASTHMA SLEEP APNEA 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 COLONOSCOPY 03/2018: MILD NONSPECIFIC CHRONIC INFLAMMATION NOTED ON BIOPSY, NO ACTIVE COLITIS, DYSPLASIA OR GRANULOMA IDENTIFIED EGD 03/2018: MILD CHRONIC GASTRITIS NOTED ON BIOPSY, NO H-PYLORI RIANNA: MANAGED BY NEUROLOGY SCROTAL PAIN ED- FOLLOWING WITH UROLOGY CARTHAGE 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 INFECTION ALLERGIES SEASONAL ALLERGIES: SNEEZING, COUGHING - ALLERGY SOCIAL HISTORY GENERAL: TOBACCO USE ARE YOU A:FORMER SMOKER NICOTINE GUM HOW LONG HAS IT BEEN SINCE YOU LAST SMOKED?6-12 MONTHS SMOKING CESSATION INFORMATION GIVEN06/06/2019 LATEX QUESTIONNAIRE LATEX ALLERGY : HAVE YOU EVER DEVELOPED ANY TYPE OF REACTION AFTER HANDLING LATEX PRODUCTS SUCH RUBBER GLOVES, CONDOMS, DIAPHRAGMS, BALLOONS, SOCKS, OR UNDERWEAR?NO LATEX ALLERGY : HAVE YOU EVER DEVELOPED ANY TYPE OF REACTION DURING OR AFTER DENTAL APPOINTMENT, VAGINAL/RECTAL EXAMINATION, SURGICAL PROCEDURE, OR ANY OTHER EXPOSURE?NO LATEX RISK : HAVE YOU EVER HAD ANY DIFFICULTY BREATHING OR HIVES AFTER EATING OR HANDLING ANY FRUITS, OR VEGETABLES; SUCH KIWI, BANANAS, STONE FRUITS, OR CHESTNUTSNO LATEX RISK : DO YOU HAVE A PREVIOUS PERSONAL HISTORY OF MORE THAN NINE SURGERIES, SPINA BIFIDA, OR REPEATED CATHERIZATIONS? YES - PLEASE INDICATE : > 9 SURGERIES LATEX RISK : ARE YOU FREQUENTLY EXPOSED TO LATEX PRODUCTS IN YOUR OCCUPATION?NO DATE ASKED : 05/21/2020 ALCOHOL USE: NO. ALCOHOL SCREENING DID YOU HAVE A DRINK CONTAINING ALCOHOL IN THE PAST YEAR?YES HOW OFTEN DID YOU HAVE SIX OR MORE DRINKS ON ONE OCCASION IN THE PAST YEAR?NEVER (0 POINTS) HOW MANY DRINKS DID YOU HAVE ON A TYPICAL DAY WHEN YOU WERE DRINKING IN THE PAST YEAR?1 OR 2 (0 POINTS) HOW OFTEN DID YOU HAVE A DRINK CONTAINING ALCOHOL IN THE PAST YEAR?MONTHLY OR LESS (1 POINT) POINTS1 INTERPRETATIONNEGATIVE RECREATIONAL DRUG USE DRUG USE?NO CAFFEINE CAFFEINE USE?NO PEPSI 3 BOTTLES A DAY SEXUAL HX HAD SEX IN THE LAST 12 MONTHS (VAGINAL, ORAL, OR ANAL)?YES WITHWOMEN ONLY PREVENTION STRATEGIES DISCUSSED:OTHER USE PROTECTION?NO HAVE YOU EVER HAD AN STD?NO HIV / HEP-C SCREENING HIV TEST OFFERED TO PATIENT:YES DATE OFFERED:05/01/2017 TEST ACCEPTED:NO REASON: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 DIET: REGULAR. EXERCISE: DAILY, WALKS. MARITAL STATUS: SINGLE. OTHERS AT HOME: CHILDREN. - HAS THE PATIENT BEEN EDUCATED REGARDING HIS/HER PLAN OF CARE?YES HAS THE PATIENT BEEN EDUCATED REGARDING PAIN, THE RISK FOR PAIN, THE IMPORTANCE OF EFFECTIVE PAIN MANAGEMENT, AND THE PAIN ASSESSMENT PROCESS?YES ADVANCE DIRECTIVE ADVANCE DIRECTIVE DISCUSSED WITH PATIENT:YES 04/08/20 PT DOES NOT HAVE HCP AND DECLINES INFO AND ASSISTANCE AT THIS TIME. REVIEW OF SYSTEMS CONSTITUTIONAL: ANY RECENT FEVER NO . CHILLS NO . WEIGHT CHANGE OF UNKNOWN REASONS NO . GASTROENTEROLOGY: NEW UNEXPLAINABLE CHANGES IN BOWEL CONTROL NO . CONSTIPATION NO . GENITOURINARY: ANY NEW CHANGE IN BLADDER CONTROL? NO . NEUROLOGY: NEW ONSET DIZZINESS OR NEUROLOGICAL CHANGES NOT MENTIONED NO . NEW NUMBNESS OR PAIN PATTERNS NOT MENTIONED AND PERTINENT TO TODAY'S VISIT NO . CARDIOLOGY: NEW CHEST PRESSURE NO . PATIENT DENIES NO . RESPIRATORY: UNEXPLAINABLE COUGH NO . NEW SHORTNESS OF BREATH NO . VITAL SIGNS WT 210 LBS, HT 65 IN, BMI 34.94 INDEX, BP 116/76 MM HG, HR 75 /MIN, RR 18 /MIN, TEMP 97.4 F, OXYGEN SAT % 95%, SAFE IN ENV? (Y/N) YEST.REGINALD PINTO. EXAMINATION GENERAL EXAMINATION: GENERALAWAKE,ALERT ,PLEASANT . PSYCHAFFECT NORMAL . LUNGS:LUNG FLOYD ARE CLEAR TO AUSCULTATION BILATERALLY. GOOD MOVEMENT OF AIR . HEART:S1, S2 IN A REGULAR RATE AND RHYTHM. NO SIGNIFICANT MURMURS, RUBS OR GALLOPS NOTED . ASSESSMENTS OTHER CHRONIC PAIN - G89.29 (PRIMARY) INTERVERTEBRAL DISC DISORDERS WITH RADICULOPATHY, LUMBAR REGION - M51.16 TREATMENT OTHER CHRONIC PAIN REFILL GABAPENTIN CAPSULE, 100 MG, 2 CAP, ORALLY FOR PAIN, TID, 30 DAYS, 180 CAPSULE, REFILLS 2, NOTES: 05/06/20 2100 PAIN PROCEDURE LOGDATE OF PROCEDURE1PROCEDURE:LUMBAR EPIDURAL STEROID INJECTIONAMOUNT OF PRE SEDATEVERSED 1MG, FENTANYL CITRATE 50MCGRESULT:MARKED REDUCTION IN PAIN CONTINUES TODAY PROCEDURE CODES FA211 ESTABILISHED PATIENT [facility] FACILITY CHARGE DISPOSITION & COMMUNICATION FOLLOW UP 2 MONTHS (REASON: 3 MONTHS F/U LBP/CONSIDER FACET RF/BILAT GROIN PAIN) ELECTRONICALLY SIGNED BY FAM CERRATO ON 05/26/2020 AT 08:10 PM EST DISCLAIMER : THIS IS A VISIT SUMMARY EXTRACTED FROM THE [employer] CHART. IT IS NOT A COPY OF THE [employer] PROGRESS NOTE. MARY
== END ==
LOC: M PAIN 14:00
PROVIDERS: ATTEND Nurse Practitioner Family
DX: M51.16 Intervertebral disc disorders with radiculopathy, lumbar region (principal); G89.29 Other chronic pain; J45.909 Unspecified asthma, uncomplicated; G47.33 Obstructive sleep apnea (adult) (pediatric); R25.1 Tremor, unspecified; Z86.59 Personal history of other mental and behavioral disorders; F17.290 Nicotine dependence, other tobacco product, uncomplicated; Z79.899 Other long term (current) drug therapy

== ENCOUNTER → 2020-07-10 | Outpatient (CLI) | payer MEDICARE, MEDICAID ==
--- NOTE | 2020-07-15 06:01 | ECWPNPC ---
PATIENT NAME: OBED RAO : 1980 GENDER: MALE VISIT DATE: 07/10/2020 DISCHARGE DATE: 07/10/20 1444 VISIT LOCKED DATE TIME: PHYSICIAN: BROCK QUIGLEY PHYSICIAN PAGER NO: INACTIVE RESOURCE: BROCK QUIGLEY REASON FOR APPOINTMENT 1. F/U HISTORY OF PRESENT ILLNESS GENERAL: HERE FOR FOLLOW-UP OF CHRONIC LOW BACK PAIN AND BILATERAL GROIN PAIN. ALL 3 AREAS HAVE BEEN AGGRAVATED OVER THE PAST MONTH. WORST AREA OF PAIN IS LEFT GROIN. RESPONDS WELL TO GENITOFEMORAL NERVE BLOCK IN THE PAST. IN FACT THE LAST TIME WE DID HIS LEFT SIDE WAS OVER 6 MONTHS AGO. DISCUSSED TREATMENT PLAN. -. FALL RISK SCREENING: SCREENING : NO FALLS REPORTED IN THE LAST YEAR. PAIN SCREENING: PATIENT HAS A COMPLAINT OF ACUTE OR CHRONIC PAIN :YES LOCATION OF PAIN:LOW BACK INTENSITY OF PAIN (SCALE OF 1 TO 10):6 WHAT DOES YOUR PAIN FEEL LIKE:ACHING, CONTINOUS, TENDER DURATION:CONTINOUS, CONSTANT, ALL DAY PAIN IS INCREASED BY:ACTIVITIES PAIN IS DECREASED BY:OTHERS NOTHING HHELPS NURSING NOTE: -. PAIN CENTER INTAKE QUESTIONS: DO YOU HAVE A HISTORY OF MRSA? :NO DO YOU TAKE A BLOOD THINNERS? :NO DO YOU HAVE ANY BLEEDING DISORDERS? :NO ANY NEW NUMBNESS OR WEAKNESS IN YOUR LEGS OR ARMS? :NO ANY PACEMAKER,DEFIBRILLATOR, OR DORSAL COLUMN STIMULATOR? :NO DO YOU HAVE ANY RASHES OR OPEN SORES? :NO ARE YOU ALLERGIC TO IV DYE? :NO ARE YOU DIABETIC? :NO ANY NEW PROBLEMS WITH YOUR MEDICATIONS? :NO HAVE YOU RECEIVED A VACCINE IN THE PAST 30 DAYS? :NO DO YOU PLAN TO RECEIVE A VACCINE IN THE NEXT 21 DAYS? :NO DO YOU NEED ANY PRESCRIPTION? :YES GABAPENTIN DO YOU TAKE ANY IMMUNOSUPPRESSIVE MEDICATIONS? :NO IS THERE A CHANCE YOU COULD BE ? :NO ARE YOU BREAST FEEDING? :NO CURRENT MEDICATIONS TAKING PROPRANOLOL HCL 20 MG TABLET 1 TABLET ORALLY TWICE A DAY TAKING PRIMIDONE 50 MG TABLET 1 ORALLY PO BID TAKING DEPAKOTE ER 500 MG TABLET EXTENDED RELEASE 24 HOUR 1 TABLET ORALLY THREE TIMES DAILY TAKING VITAMIN C 500 MG TABLET CHEWABLE 1 TABLET ORALLY ONCE A DAY- OTC TAKING EXCEDRIN TENSION HEADACHE 500-65 MG TABLET 2 TABLETS NEEDED ORALLY THREE TIMES A DAY TAKING OMEPRAZOLE 40 MG CAPSULE DELAYED RELEASE 1 CAPSULE ORALLY BID TAKING SIMVASTATIN 40 MG TABLET 1 TABLET IN THE EVENING ORALLY ONCE A DAY TAKING FLONASE ALLERGY RELIEF 50 MCG/ACT SUSPENSION 1 SPRAY IN EACH NOSTRIL NASALLY ONCE A DAY TAKING MONTELUKAST SODIUM 10 MG TABLET 1 TABLET ORALLY ONCE A DAY TAKING AYR SALINE NASAL NETI RINSE 1.57 GM PACKET DIRECTED NASALLY DAILY TAKING ALBUTEROL SULFATE HFA 108 (90 BASE) MCG/ACT AEROSOL SOLUTION 2 PUFFS NEEDED INHALATION EVERY 6 HRS TAKING VITAMIN D 50 MCG (2000 UT) CAPSULE 1 CAPSULE ORALLY ONCE A DAY TAKING AYANNA ALLERGY 180 MG TABLET 1 TABLET ORALLY ONCE A DAY TAKING NICORETTE 4 MG GUM 1 PIECE FOR 30 MINUTE NEEDED MOUTH/THROAT 24 TIME(S) A DAY TAKING RELPAX 20 MG TABLET 1 TABLET ORALLY ONCE A DAY PRN TAKING AIMOVIG 140 MG/ML SOLUTION AUTO-INJECTOR DIRECTED SUBCUTANEOUS ONCE A MONTH TAKING GUANFACINE HCL 1 MG TABLET 1 TAB ORALLY ONCE A DAY TAKING GABAPENTIN 100 MG CAPSULE 2 CAP ORALLY FOR PAIN TID NOT-TAKING KETOROLAC TROMETHAMINE 10 MG TABLET 1 TABLET WITH FOOD OR MILK NEEDED ORALLY EVERY 6 HRS NOT-TAKING KETOROLAC TROMETHAMINE 10 MG TABLET 1 TABLET WITH FOOD OR MILK NEEDED ORALLY EVERY 6 HRS NOT-TAKING BOTOX 100 UNIT SOLUTION RECONSTITUTED DIRECTED INJECTION EVERY MONTH NOT-TAKING NICOTROL 10 MG INHALER 1 CARTRIDGE NEEDED INHALATION 16 TIME(S) A DAY NOT-TAKING AMOXICILLIN 500 MG CAPSULE 1 CAPSULE ORALLY EVERY 12 HRS NOT-TAKING CYMBALTA 60 MG CAPSULE DELAYED RELEASE PARTICLES 1 CAPSULE ORALLY FOR PAIN DAILY NOT-TAKING HIBICLENS 4 % LIQUID DIRECTED EXTERNALLY DAILY AT PELVIC AREA NOT-TAKING CETIRIZINE HCL 10 MG TABLET 1 TABLET ORALLY ONCE A DAY NOT-TAKING ZOLMITRIPTAN 5 MG TABLET 1 TABLET NEEDED ONE TIME ORALLY ONCE A DAY NOT-TAKING SUCRALFATE 1 GM TABLET ORAL DIRECTED NOT-TAKING PERCOCET 10-325 MG TABLET 1 TABLET NEEDED ORALLY EVERY 6 HRS, NOTES: FOR SINUS SURGERY NOT-TAKING KEFLEX 500 MG CAPSULE 1 CAPSULE ORALLY EVERY 12 HRS MEDICATION LIST REVIEWED AND RECONCILED WITH THE PATIENT PAST MEDICAL HISTORY HIGH CHOLESTEROL BIPOLAR ADHD ALLERGIES ASTHMA SLEEP APNEA 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 COLONOSCOPY 03/2018: MILD NONSPECIFIC CHRONIC INFLAMMATION NOTED ON BIOPSY, NO ACTIVE COLITIS, DYSPLASIA OR GRANULOMA IDENTIFIED EGD 03/2018: MILD CHRONIC GASTRITIS NOTED ON BIOPSY, NO H-PYLORI RIANNA: MANAGED BY NEUROLOGY [facility] PAIN ED- FOLLOWING WITH UROLOGY CARTHAGE 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 INFECTION ALLERGIES SEASONAL ALLERGIES: SNEEZING, COUGHING - ALLERGY SOCIAL HISTORY GENERAL: TOBACCO USE ARE YOU A:FORMER SMOKER NICOTINE GUM HOW LONG HAS IT BEEN SINCE YOU LAST SMOKED?6-12 MONTHS SMOKING CESSATION INFORMATION GIVEN07/10/2020 LATEX QUESTIONNAIRE LATEX ALLERGY : HAVE YOU EVER DEVELOPED ANY TYPE OF REACTION AFTER HANDLING LATEX PRODUCTS SUCH RUBBER GLOVES, CONDOMS, DIAPHRAGMS, BALLOONS, SOCKS, OR UNDERWEAR?NO LATEX ALLERGY : HAVE YOU EVER DEVELOPED ANY TYPE OF REACTION DURING OR AFTER DENTAL APPOINTMENT, VAGINAL/RECTAL EXAMINATION, SURGICAL PROCEDURE, OR ANY OTHER EXPOSURE?NO LATEX RISK : HAVE YOU EVER HAD ANY DIFFICULTY BREATHING OR HIVES AFTER EATING OR HANDLING ANY FRUITS, OR VEGETABLES; SUCH KIWI, BANANAS, STONE FRUITS, OR CHESTNUTSNO LATEX RISK : DO YOU HAVE A PREVIOUS PERSONAL HISTORY OF MORE THAN NINE SURGERIES, SPINA BIFIDA, OR REPEATED CATHERIZATIONS? YES - PLEASE INDICATE : > 9 SURGERIES LATEX RISK : ARE YOU FREQUENTLY EXPOSED TO LATEX PRODUCTS IN YOUR OCCUPATION?NO DATE ASKED : 07/10/2020 ALCOHOL USE: NO. ALCOHOL SCREENING DID YOU HAVE A DRINK CONTAINING ALCOHOL IN THE PAST YEAR?YES HOW OFTEN DID YOU HAVE SIX OR MORE DRINKS ON ONE OCCASION IN THE PAST YEAR?NEVER (0 POINTS) HOW MANY DRINKS DID YOU HAVE ON A TYPICAL DAY WHEN YOU WERE DRINKING IN THE PAST YEAR?1 OR 2 (0 POINTS) HOW OFTEN DID YOU HAVE A DRINK CONTAINING ALCOHOL IN THE PAST YEAR?MONTHLY OR LESS (1 POINT) POINTS1 INTERPRETATIONNEGATIVE RECREATIONAL DRUG USE DRUG USE?NO CAFFEINE CAFFEINE USE?NO PEPSI 3 BOTTLES A DAY SEXUAL HX HAD SEX IN THE LAST 12 MONTHS (VAGINAL, ORAL, OR ANAL)?YES WITHWOMEN ONLY PREVENTION STRATEGIES DISCUSSED:OTHER USE PROTECTION?NO HAVE YOU EVER HAD AN STD?NO HIV / HEP-C SCREENING HIV TEST OFFERED TO PATIENT:YES DATE OFFERED:05/01/2017 TEST ACCEPTED:NO REASON:PATIENT DECLINED [employer] [id number] HINDUISM LANGUAGE LANGUAGES SPOKEN:BULGARIAN EDUCATION LEVEL OF EDUCATION:HIGH SCHOOL LEARNING BARRIERS / SPECIAL NEEDS CHANGE FROM LAST VISIT?NO BARRIERS TO LEARNING?NO HEARING IMPAIRED?NO VISION IMPAIRED?YES :CORRECTIVE LENSES COGNITIVELY IMPAIRED?NO READINESS TO LEARN?YES LEARNING PREFERENCES?NO LEARNING CAPABILITIES PRESENT?YES ADHD-NO DIFFICULTY WITH LEARNING EMOTIONAL BARRIERS?NO SPECIAL DEVICES?NO COGENERATION OPERATOR NEEDED?NO DOMESTIC VIOLENCE DO YOU FEEL SAFE IN YOUR ENVIRONMENT?YES OCCUPATION: UNEMPLOYED. DIET: REGULAR. EXERCISE: DAILY, WALKS. MARITAL STATUS: SINGLE. OTHERS AT HOME: CHILDREN. - HAS THE PATIENT BEEN EDUCATED REGARDING HIS/HER PLAN OF CARE?YES HAS THE PATIENT BEEN EDUCATED REGARDING PAIN, THE RISK FOR PAIN, THE IMPORTANCE OF EFFECTIVE PAIN MANAGEMENT, AND THE PAIN ASSESSMENT PROCESS?YES ADVANCE DIRECTIVE ADVANCE DIRECTIVE DISCUSSED WITH PATIENT:YES 04/08/20 PT DOES NOT HAVE HCP AND DECLINES INFO AND ASSISTANCE AT THIS TIME. REVIEW OF SYSTEMS CONSTITUTIONAL: ANY RECENT FEVER NO . CHILLS NO . WEIGHT CHANGE OF UNKNOWN REASONS NO . GASTROENTEROLOGY: NEW UNEXPLAINABLE CHANGES IN BOWEL CONTROL NO . CONSTIPATION NO . GENITOURINARY: ANY NEW CHANGE IN BLADDER CONTROL? NO . NEUROLOGY: NEW ONSET DIZZINESS OR NEUROLOGICAL CHANGES NOT MENTIONED NO . NEW NUMBNESS OR PAIN PATTERNS NOT MENTIONED AND PERTINENT TO TODAY'S VISIT NO . CARDIOLOGY: NEW CHEST PRESSURE NO . PATIENT DENIES NO . RESPIRATORY: UNEXPLAINABLE COUGH NO . NEW SHORTNESS OF BREATH NO . VITAL SIGNS WT 209.0 LBS, HT 65 IN, BMI 34.78 INDEX, BP 131/73 MM HG, HR 71 /MIN, RR 18 /MIN, TEMP 98.3 F, OXYGEN SAT % 98%, SAFE IN ENV? (Y/N) YES, NA INITIALS AW 1403T.REGINALD PINTO. EXAMINATION GENERAL EXAMINATION: GENERALAWAKE,ALERT ,PLEASANT . PSYCHAFFECT NORMAL . LUNGS:LUNG FLOYD ARE CLEAR TO AUSCULTATION BILATERALLY. GOOD MOVEMENT OF AIR . HEART:S1, S2 IN A REGULAR RATE AND RHYTHM. NO SIGNIFICANT MURMURS, RUBS OR GALLOPS NOTED . 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 PROCEDURE CODES FA211 ESTABILISHED PATIENT [facility] FACILITY CHARGE DISPOSITION & COMMUNICATION FOLLOW UP DR Candis CHANEL PRESEDATE APT/SIGN CONSENT/POST PROCEDURE ENVIRONMENTAL FIELD TEAM MEMBER (REASON: LEFT GENITOFEMORAL NERVE BLOCK W IV SEDATION) ELECTRONICALLY SIGNED BY FAM CERRATO ON 07/14/2020 AT 02:24 PM EDT DISCLAIMER : THIS IS A VISIT SUMMARY EXTRACTED FROM THE [employer] CHART. IT IS NOT A COPY OF THE [employer] PROGRESS NOTE. MARY
== END ==
LOC: M PAIN 14:15
PROVIDERS: ATTEND Nurse Practitioner Family
DX: G58.8 Other specified mononeuropathies (principal); G89.29 Other chronic pain; J45.909 Unspecified asthma, uncomplicated; G47.30 Sleep apnea, unspecified; R25.1 Tremor, unspecified; F17.290 Nicotine dependence, other tobacco product, uncomplicated; Z86.59 Personal history of other mental and behavioral disorders; Z79.899 Other long term (current) drug therapy

== ENCOUNTER → 2020-07-21 | Outpatient (CLI) | payer MEDICARE ==
--- NOTE | 2020-07-23 00:09 | ECWPNPC ---
PATIENT NAME: OBED RAO : 1980 GENDER: MALE VISIT DATE: 07/21/2020 DISCHARGE DATE: 07/21/20 1342 VISIT LOCKED DATE TIME: PHYSICIAN: ANGELINA HERNANDEZ MD PHYSICIAN PAGER NO: INACTIVE RESOURCE: ANGELINA HERNANDEZ MD REASON FOR APPOINTMENT 1. PRESEDATE FOR LEFT GENITOFEMORAL NERVE BLOCK HISTORY OF PRESENT ILLNESS GENERAL: -. 40-YEAR-OLD MALE PATIENT WITH A HISTORY OF CHRONIC INGUINAL PAIN. THE PATIENT SUFFERS FROM INGUINAL PAIN ON BOTH SIDES. HE HAS BEEN RECEIVING GENITOFEMORAL NERVE BLOCKS WITH EXCELLENT PAIN RELIEF. THEY LAST APPROXIMATELY 6 MONTHS. THE PATIENT IS LOOKING TO HAVE THIS INJECTION AGAIN BECAUSE THE PAIN HAS COME BACK. THE PATIENT DESCRIBES THE PAIN SERVE AND BURNING WITH A PAIN SCORE RANGING FROM 7-10/10. FALL RISK SCREENING: SCREENING : NO FALLS REPORTED IN THE LAST YEAR. PAIN SCREENING: PATIENT HAS A COMPLAINT OF ACUTE OR CHRONIC PAIN :YES LOCATION OF PAIN:LOW BACK, OTHER: BILATERAL GROIN INTENSITY OF PAIN (SCALE OF 1 TO 10):10 WHAT DOES YOUR PAIN FEEL LIKE:ACHING, BURNING, CONTINOUS, TENDER, THROBBING DURATION:CONTINOUS, CONSTANT, ALL DAY, AWAKENS FROM SLEEP PAIN IS INCREASED BY:ACTIVITIES PAIN IS DECREASED BY:USE OF PAIN MEDICATIONS, OTHERS PAIN PROCEDURES PAIN HAS INTERFERED WITH THE FOLLOWING: INTERFERES WITH ALL ADLS. PLAN/GOALS/TREATMENT/INTERVENTION/FOLLOW UP:SEE PLAN NURSING NOTE: -. PAIN CENTER INTAKE QUESTIONS: DO YOU HAVE A HISTORY OF MRSA? :NO DO YOU TAKE A BLOOD THINNERS? :NO DO YOU HAVE ANY BLEEDING DISORDERS? :NO ANY NEW NUMBNESS OR WEAKNESS IN YOUR LEGS OR ARMS? :NO ANY PACEMAKER,DEFIBRILLATOR, OR DORSAL COLUMN STIMULATOR? :NO DO YOU HAVE ANY RASHES OR OPEN SORES? :NO ARE YOU ALLERGIC TO IV DYE? :NO ARE YOU DIABETIC? :NO ANY NEW PROBLEMS WITH YOUR MEDICATIONS? :NO HAVE YOU RECEIVED A VACCINE IN THE PAST 30 DAYS? :NO DO YOU PLAN TO RECEIVE A VACCINE IN THE NEXT 21 DAYS? :NO DO YOU TAKE ANY IMMUNOSUPPRESSIVE MEDICATIONS? :NO ANY HISTORY OF SEIZURES? :NO ANY HISTORY OF CARDIAC ISSUES OR EVENTS? :NO DO YOU HAVE ANY KIDNEY OR LIVER DISEASE? :NO DO YOU HAVE SLEEP APNEA? :YES DO YOU WEAR A CPAP? AUTOPAP ANY RECENT HEAD INJURY? :NO IS THERE A CHANCE YOU COULD BE ? :N/A ARE YOU BREAST FEEDING? :N/A WHEN DID YOU LAST EAT? : ------ WHEN DID YOU LAST DRINK? : ------- WHAT DID YOU LAST DRINK? : ------- NAME OF PERSON DRIVING YOU HOME? : ------- DO YOU HAVE ANY OTHER QUESTIONS OR CONCERNS? : ----- CURRENT MEDICATIONS TAKING PROPRANOLOL HCL 20 MG TABLET 1 TABLET ORALLY TWICE A DAY TAKING PRIMIDONE 50 MG TABLET 1 ORALLY PO BID TAKING DEPAKOTE ER 500 MG TABLET EXTENDED RELEASE 24 HOUR 1 TABLET ORALLY THREE TIMES DAILY TAKING VITAMIN C 500 MG TABLET CHEWABLE 1 TABLET ORALLY ONCE A DAY- OTC TAKING EXCEDRIN TENSION HEADACHE 500-65 MG TABLET 2 TABLETS NEEDED ORALLY THREE TIMES A DAY TAKING OMEPRAZOLE 40 MG CAPSULE DELAYED RELEASE 1 CAPSULE ORALLY BID TAKING SIMVASTATIN 40 MG TABLET 1 TABLET IN THE EVENING ORALLY ONCE A DAY TAKING FLONASE ALLERGY RELIEF 50 MCG/ACT SUSPENSION 1 SPRAY IN EACH NOSTRIL NASALLY ONCE A DAY TAKING MONTELUKAST SODIUM 10 MG TABLET 1 TABLET ORALLY ONCE A DAY TAKING AYR SALINE NASAL NETI RINSE 1.57 GM PACKET DIRECTED NASALLY DAILY TAKING ALBUTEROL SULFATE HFA 108 (90 BASE) MCG/ACT AEROSOL SOLUTION 2 PUFFS NEEDED INHALATION EVERY 6 HRS TAKING VITAMIN D 50 MCG (2000 UT) CAPSULE 1 CAPSULE ORALLY ONCE A DAY TAKING AYANNA ALLERGY 180 MG TABLET 1 TABLET ORALLY ONCE A DAY TAKING NICORETTE 4 MG GUM 1 PIECE FOR 30 MINUTE NEEDED MOUTH/THROAT 24 TIME(S) A DAY TAKING RELPAX 20 MG TABLET 1 TABLET ORALLY ONCE A DAY PRN TAKING AIMOVIG 140 MG/ML SOLUTION AUTO-INJECTOR DIRECTED SUBCUTANEOUS ONCE A MONTH TAKING GUANFACINE HCL 1 MG TABLET 1 TAB ORALLY ONCE A DAY TAKING GABAPENTIN 100 MG CAPSULE 2 CAP ORALLY FOR PAIN TID TAKING HYDROCODONE-ACETAMINOPHEN 7.5-325 MG TABLET 1 TABLET NEEDED ORALLY EVERY 4 HRS MDD: 6, NOTES: ENT [place] NOT-TAKING KETOROLAC TROMETHAMINE 10 MG TABLET 1 TABLET WITH FOOD OR MILK NEEDED ORALLY EVERY 6 HRS NOT-TAKING KETOROLAC TROMETHAMINE 10 MG TABLET 1 TABLET WITH FOOD OR MILK NEEDED ORALLY EVERY 6 HRS NOT-TAKING BOTOX 100 UNIT SOLUTION RECONSTITUTED DIRECTED INJECTION EVERY MONTH NOT-TAKING NICOTROL 10 MG INHALER 1 CARTRIDGE NEEDED INHALATION 16 TIME(S) A DAY NOT-TAKING AMOXICILLIN 500 MG CAPSULE 1 CAPSULE ORALLY EVERY 12 HRS NOT-TAKING CYMBALTA 60 MG CAPSULE DELAYED RELEASE PARTICLES 1 CAPSULE ORALLY FOR PAIN DAILY NOT-TAKING HIBICLENS 4 % LIQUID DIRECTED EXTERNALLY DAILY AT PELVIC AREA NOT-TAKING CETIRIZINE HCL 10 MG TABLET 1 TABLET ORALLY ONCE A DAY NOT-TAKING ZOLMITRIPTAN 5 MG TABLET 1 TABLET NEEDED ONE TIME ORALLY ONCE A DAY NOT-TAKING SUCRALFATE 1 GM TABLET ORAL DIRECTED NOT-TAKING PERCOCET 10-325 MG TABLET 1 TABLET NEEDED ORALLY EVERY 6 HRS, NOTES: FOR SINUS SURGERY NOT-TAKING KEFLEX 500 MG CAPSULE 1 CAPSULE ORALLY EVERY 12 HRS MEDICATION LIST REVIEWED AND RECONCILED WITH THE PATIENT PAST MEDICAL HISTORY HIGH CHOLESTEROL BIPOLAR ADHD ALLERGIES ASTHMA SLEEP APNEA 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 COLONOSCOPY 03/2018: MILD NONSPECIFIC CHRONIC INFLAMMATION NOTED ON BIOPSY, NO ACTIVE COLITIS, DYSPLASIA OR GRANULOMA IDENTIFIED EGD 03/2018: MILD CHRONIC GASTRITIS NOTED ON BIOPSY, NO H-PYLORI RIANNA: MANAGED BY NEUROLOGY [facility] PAIN ED- FOLLOWING WITH UROLOGY CARTHAGE 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 INFECTION ALLERGIES SEASONAL ALLERGIES: SNEEZING, COUGHING - ALLERGY REVIEW OF SYSTEMS GLAUCOMA: NOTHYROID DISEASE: NOHYPERTENSION: NOHEART DISEASE: NOLUNG DISEASE: NODIABETES: NOGI DISEASE: NO LIVER DISEASE: NO KIDNEY DISEASE: NOSTERIOD USE: NONEUROLOGICAL DISEASE: NOBACK PROBLEMS: YES, PAINEXTREMITIES: YES, PAINGENITOURINARY: NOBLEEDING DISORDER: NOASA CLASS: IIAIRWAY CLASS: II. VITAL SIGNS WT 209.0 LBS, HT 65 IN, BMI 34.78 INDEX, BP 132/83 MM HG, HR 65 /MIN, RR 18 /MIN, TEMP 97.7 F, OXYGEN SAT % 100%, BLOOD GLUCOSE LEVEL N/A, SAFE IN ENV? (Y/N) YES, NA INITIALS AW 1312, REVIEWED BY: Jenn [facility]. EXAMINATION GENERAL: THE PATIENT IS ALERT, ORIENTED TIMES THREE AND COOPERATIVE. LUNGS ARE CLEAR TO AUSCULTATION. HEART SHOWS REGULAR RHYTHM, NO MURMURS AND NO GALLOPS. THERE IS TENDERNESS IN THE LEFT INGUINAL AREA. 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 RAO. WE AGREE ON DOING A LEFT GENITOFEMORAL NERVE BLOCK WITH IV SEDATION DUE TO THE ANXIETY AND DISCOMFORT ASSOCIATED WITH THE PROCEDURE. THE PATIENT REPORTS UNDERSTANDING AND AGREES WITH THE PLAN. I, JANET LOPEZ, DOCUMENTED THE ABOVE INFORMATION ACTING A SCRIBE FOR DR. HERNANDEZ. I HAVE REVIEWED THE ABOVE DOCUMENT, WRITTEN BY JANET LOPEZ, PHYSICIST NUCLEAR, AND I VERIFY THAT IT IS ACCURATE. PROCEDURE CODES FA211 ESTABILISHED PATIENT [facility] FACILITY CHARGE [id number] OFFICE/OUTPATIENT VISIT EST DISPOSITION & COMMUNICATION FOLLOW UP OKAY TO BOOK (REASON: LEFT GENITOFEMORAL NERVE BLOCK) ELECTRONICALLY SIGNED BY ANGELINA HERNANDEZ MD, ON 07/22/2020 AT 01:07 PM EDT DISCLAIMER : THIS IS A VISIT SUMMARY EXTRACTED FROM THE [employer] CHART. IT IS NOT A COPY OF THE [employer] PROGRESS NOTE. MARY
== END ==
LOC: M PAIN 13:00
PROVIDERS: ATTEND Anesthesiology
DX: M79.2 Neuralgia and neuritis, unspecified (principal); G89.29 Other chronic pain; G47.30 Sleep apnea, unspecified; J45.909 Unspecified asthma, uncomplicated; R25.1 Tremor, unspecified; Z86.59 Personal history of other mental and behavioral disorders; Z79.899 Other long term (current) drug therapy

== ENCOUNTER → 2020-07-24 | Outpatient (CLI) | payer MEDICARE, MEDICAID | LOC: M LABSMTC 13:24 | PROVIDERS: ATTEND Anesthesiology | DX: Z20.828 Contact with and (suspected) exposure to other viral communicable diseases (principal); Z11.59 Encounter for screening for other viral diseases ==

== ENCOUNTER → 2020-07-28 | Outpatient (REF) ==
--- NOTE | 2020-07-28 16:15 | REP ---
INDICATION: ENCOUNTER FOR OTHER PREPROCEDURAL EXAMINATION COMPARISON: None. TECHNIQUE: AP and lateral views of the lumbosacral spine. FINDINGS: AP and lateral views of the lumbosacral spine demonstrate satisfactory alignment and lordosis without acute fracture / compression injury or subluxation. No significant degenerative changes are appreciated. IMPRESSION: 1. No acute fracture / compression injury or subluxation. 2. Examination is essentially age-appropriate and without significant degenerative changes noted by radiographic evaluation. <Electronically signed by Emerson Herrera > 07/28/20 6115
== END ==
LOC: M RAD 13:40
PROVIDERS: ATTEND Internal Medicine
DX: Z01.818 Encounter for other preprocedural examination (principal); M54.9 Dorsalgia, unspecified

== ENCOUNTER → 2020-07-29 | Outpatient (CLI) | payer MEDICARE ==
[~2020-07-29] MED LIST changes: +BUPIVACAINE HCL 0.25% 30ML VIAL As Ordered ONE; +ISOVUE-M 300 61% 15ML VIAL As Ordered ONE; +LIDOCAINE 1% SDV 30ML VIAL As Ordered ONE; +MIDAZOLAM INJ 2MG/2ML VIAL (J2250 PER 1MG) As Ordered ONE; +TRIAMCINOLONE ACETONIDE SUSP 40 MG/ML VIAL (J3301) As Ordered ONE; +fentaNYL 100 MCG/2 ML INJECTION (J3010) As Ordered ONE
--- NOTE | 2020-08-05 02:30 | ECWPNPC ---
PATIENT NAME: OBED RAO : 1980 GENDER: MALE VISIT DATE: 07/29/2020 DISCHARGE DATE: 07/29/20 1558 VISIT LOCKED DATE TIME: PHYSICIAN: ANGELINA HERNANDEZ MD PHYSICIAN PAGER NO: INACTIVE RESOURCE: ANGELINA HERNANDEZ MD REASON FOR APPOINTMENT 1. GENITOFEMORAL NERVE BLOCK LEFT HISTORY OF PRESENT ILLNESS GENERAL: -. -. FALL RISK SCREENING: SCREENING : NO FALLS REPORTED IN THE LAST YEAR. PAIN SCREENING: PATIENT HAS A COMPLAINT OF ACUTE OR CHRONIC PAIN :YES LOCATION OF PAIN:LOW BACK, OTHER: BILATERAL GROIN INTENSITY OF PAIN (SCALE OF 1 TO 10):10 WHAT DOES YOUR PAIN FEEL LIKE:ACHING, BURNING, CONTINOUS, SHARP, STABBING, TENDER, THROBBING, SORE, SHOOTING DURATION:CONTINOUS, CONSTANT, ALL DAY, AWAKENS FROM SLEEP PAIN IS INCREASED BY:ACTIVITIES PAIN IS DECREASED BY:USE OF PAIN MEDICATIONS, OTHERS PAIN PROCEDURES PAIN HAS INTERFERED WITH THE FOLLOWING: INTERFERES WITH ALL ADLS. PLAN/GOALS/TREATMENT/INTERVENTION/FOLLOW UP:SEE PLAN NURSING NOTE: -. PAIN CENTER INTAKE QUESTIONS: DO YOU HAVE A HISTORY OF MRSA? :NO DO YOU TAKE A BLOOD THINNERS? :NO DO YOU HAVE ANY BLEEDING DISORDERS? :NO ANY NEW NUMBNESS OR WEAKNESS IN YOUR LEGS OR ARMS? :NO ANY PACEMAKER,DEFIBRILLATOR, OR DORSAL COLUMN STIMULATOR? :NO DO YOU HAVE ANY RASHES OR OPEN SORES? :NO ARE YOU ALLERGIC TO IV DYE? :NO ARE YOU DIABETIC? :NO ANY NEW PROBLEMS WITH YOUR MEDICATIONS? :NO HAVE YOU RECEIVED A VACCINE IN THE PAST 30 DAYS? :NO DO YOU PLAN TO RECEIVE A VACCINE IN THE NEXT 21 DAYS? :NO DO YOU TAKE ANY IMMUNOSUPPRESSIVE MEDICATIONS? :NO ANY HISTORY OF SEIZURES? :NO ANY HISTORY OF CARDIAC ISSUES OR EVENTS? :NO DO YOU HAVE ANY KIDNEY OR LIVER DISEASE? :NO DO YOU HAVE SLEEP APNEA? :YES DO YOU WEAR A CPAP? AUTOPAP ANY RECENT HEAD INJURY? :NO DO YOU HAVE ANY NEW INFECTIONS? :NO IS THERE A CHANCE YOU COULD BE ? :N/A ARE YOU BREAST FEEDING? :N/A WHEN DID YOU LAST EAT? : 07/29 1999 WHEN DID YOU LAST DRINK? : 07/29 1999 WHAT DID YOU LAST DRINK? : [place] NAME OF PERSON DRIVING YOU HOME? : MOTHER (MISTY) DO YOU HAVE ANY OTHER QUESTIONS OR CONCERNS? : NO CURRENT MEDICATIONS TAKING PROPRANOLOL HCL 20 MG TABLET 1 TABLET ORALLY TWICE A DAY TAKING PRIMIDONE 50 MG TABLET 1 ORALLY PO BID TAKING DEPAKOTE ER 500 MG TABLET EXTENDED RELEASE 24 HOUR 1 TABLET ORALLY THREE TIMES DAILY TAKING VITAMIN C 500 MG TABLET CHEWABLE 1 TABLET ORALLY ONCE A DAY- OTC TAKING EXCEDRIN TENSION HEADACHE 500-65 MG TABLET 2 TABLETS NEEDED ORALLY THREE TIMES A DAY TAKING OMEPRAZOLE 40 MG CAPSULE DELAYED RELEASE 1 CAPSULE ORALLY BID TAKING SIMVASTATIN 40 MG TABLET 1 TABLET IN THE EVENING ORALLY ONCE A DAY TAKING FLONASE ALLERGY RELIEF 50 MCG/ACT SUSPENSION 1 SPRAY IN EACH NOSTRIL NASALLY ONCE A DAY TAKING MONTELUKAST SODIUM 10 MG TABLET 1 TABLET ORALLY ONCE A DAY TAKING AYR SALINE NASAL NETI RINSE 1.57 GM PACKET DIRECTED NASALLY DAILY TAKING ALBUTEROL SULFATE HFA 108 (90 BASE) MCG/ACT AEROSOL SOLUTION 2 PUFFS NEEDED INHALATION EVERY 6 HRS TAKING VITAMIN D 50 MCG (2000 UT) CAPSULE 1 CAPSULE ORALLY ONCE A DAY TAKING AYANNA ALLERGY 180 MG TABLET 1 TABLET ORALLY ONCE A DAY TAKING NICORETTE 4 MG GUM 1 PIECE FOR 30 MINUTE NEEDED MOUTH/THROAT 24 TIME(S) A DAY TAKING RELPAX 20 MG TABLET 1 TABLET ORALLY ONCE A DAY PRN TAKING AIMOVIG 140 MG/ML SOLUTION AUTO-INJECTOR DIRECTED SUBCUTANEOUS ONCE A MONTH TAKING GUANFACINE HCL 1 MG TABLET 1 TAB ORALLY ONCE A DAY TAKING GABAPENTIN 100 MG CAPSULE 2 CAP ORALLY FOR PAIN TID TAKING HYDROCODONE-ACETAMINOPHEN 7.5-325 MG TABLET 1 TABLET NEEDED ORALLY EVERY 4 HRS MDD: 6, NOTES: ENT UTICA NOT-TAKING KETOROLAC TROMETHAMINE 10 MG TABLET 1 TABLET WITH FOOD OR MILK NEEDED ORALLY EVERY 6 HRS NOT-TAKING KETOROLAC TROMETHAMINE 10 MG TABLET 1 TABLET WITH FOOD OR MILK NEEDED ORALLY EVERY 6 HRS NOT-TAKING BOTOX 100 UNIT SOLUTION RECONSTITUTED DIRECTED INJECTION EVERY MONTH NOT-TAKING NICOTROL 10 MG INHALER 1 CARTRIDGE NEEDED INHALATION 16 TIME(S) A DAY NOT-TAKING AMOXICILLIN 500 MG CAPSULE 1 CAPSULE ORALLY EVERY 12 HRS NOT-TAKING CYMBALTA 60 MG CAPSULE DELAYED RELEASE PARTICLES 1 CAPSULE ORALLY FOR PAIN DAILY NOT-TAKING HIBICLENS 4 % LIQUID DIRECTED EXTERNALLY DAILY AT PELVIC AREA NOT-TAKING CETIRIZINE HCL 10 MG TABLET 1 TABLET ORALLY ONCE A DAY NOT-TAKING ZOLMITRIPTAN 5 MG TABLET 1 TABLET NEEDED ONE TIME ORALLY ONCE A DAY NOT-TAKING SUCRALFATE 1 GM TABLET ORAL DIRECTED NOT-TAKING PERCOCET 10-325 MG TABLET 1 TABLET NEEDED ORALLY EVERY 6 HRS, NOTES: FOR SINUS SURGERY NOT-TAKING KEFLEX 500 MG CAPSULE 1 CAPSULE ORALLY EVERY 12 HRS MEDICATION LIST REVIEWED AND RECONCILED WITH THE PATIENT PAST MEDICAL HISTORY HIGH CHOLESTEROL BIPOLAR ADHD ALLERGIES ASTHMA SLEEP APNEA 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 COLONOSCOPY 03/2018: MILD NONSPECIFIC CHRONIC INFLAMMATION NOTED ON BIOPSY, NO ACTIVE COLITIS, DYSPLASIA OR GRANULOMA IDENTIFIED EGD 03/2018: MILD CHRONIC GASTRITIS NOTED ON BIOPSY, NO H-PYLORI RIANNA: MANAGED BY NEUROLOGY SCROTAL PAIN ED- FOLLOWING WITH UROLOGY CARTHAGE 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 INFECTION ALLERGIES SEASONAL ALLERGIES: SNEEZING, COUGHING - ALLERGY SOCIAL HISTORY GENERAL: TOBACCO USE ARE YOU A:FORMER SMOKER NICOTINE GUM HOW LONG HAS IT BEEN SINCE YOU LAST SMOKED?6-12 MONTHS SMOKING CESSATION INFORMATION GIVEN07/10/2020 VAPORNO E-CIGARETTENO LATEX QUESTIONNAIRE LATEX ALLERGY : HAVE YOU EVER DEVELOPED ANY TYPE OF REACTION AFTER HANDLING LATEX PRODUCTS SUCH RUBBER GLOVES, CONDOMS, DIAPHRAGMS, BALLOONS, SOCKS, OR UNDERWEAR?NO LATEX ALLERGY : HAVE YOU EVER DEVELOPED ANY TYPE OF REACTION DURING OR AFTER DENTAL APPOINTMENT, VAGINAL/RECTAL EXAMINATION, SURGICAL PROCEDURE, OR ANY OTHER EXPOSURE?NO LATEX RISK : HAVE YOU EVER HAD ANY DIFFICULTY BREATHING OR HIVES AFTER EATING OR HANDLING ANY FRUITS, OR VEGETABLES; SUCH KIWI, BANANAS, STONE FRUITS, OR CHESTNUTSNO LATEX RISK : DO YOU HAVE A PREVIOUS PERSONAL HISTORY OF MORE THAN NINE SURGERIES, SPINA BIFIDA, OR REPEATED CATHERIZATIONS? YES - PLEASE INDICATE : > 9 SURGERIES LATEX RISK : ARE YOU FREQUENTLY EXPOSED TO LATEX PRODUCTS IN YOUR OCCUPATION?NO DATE ASKED : 07/27/2020 ALCOHOL USE: NO. ALCOHOL SCREENING DID YOU HAVE A DRINK CONTAINING ALCOHOL IN THE PAST YEAR?YES HOW OFTEN DID YOU HAVE SIX OR MORE DRINKS ON ONE OCCASION IN THE PAST YEAR?NEVER (0 POINTS) HOW MANY DRINKS DID YOU HAVE ON A TYPICAL DAY WHEN YOU WERE DRINKING IN THE PAST YEAR?1 OR 2 (0 POINTS) HOW OFTEN DID YOU HAVE A DRINK CONTAINING ALCOHOL IN THE PAST YEAR?MONTHLY OR LESS (1 POINT) POINTS1 INTERPRETATIONNEGATIVE RECREATIONAL DRUG USE DRUG USE?NO CAFFEINE CAFFEINE USE?NO PEPSI 3 BOTTLES A DAY SEXUAL HX HAD SEX IN THE LAST 12 MONTHS (VAGINAL, ORAL, OR ANAL)?YES WITHWOMEN ONLY PREVENTION STRATEGIES DISCUSSED:OTHER USE PROTECTION?NO HAVE YOU EVER HAD AN STD?NO HIV / HEP-C SCREENING HIV TEST OFFERED TO PATIENT:YES DATE OFFERED:05/01/2017 TEST ACCEPTED:NO REASON:PATIENT DECLINED BAHAI [id number] DENOMINATIONAL LANGUAGE LANGUAGES SPOKEN:[place]RA[place] EDUCATION LEVEL OF EDUCATION:HIGH SCHOOL LEARNING BARRIERS / SPECIAL NEEDS CHANGE FROM LAST VISIT?NO BARRIERS TO LEARNING?NO HEARING IMPAIRED?NO VISION IMPAIRED?YES :CORRECTIVE LENSES COGNITIVELY IMPAIRED?NO READINESS TO LEARN?YES LEARNING PREFERENCES?NO LEARNING CAPABILITIES PRESENT?YES ADHD-NO DIFFICULTY WITH LEARNING EMOTIONAL BARRIERS?NO SPECIAL DEVICES?NO TOLL TEST WORKER NEEDED?NO DOMESTIC VIOLENCE DO YOU FEEL SAFE IN YOUR ENVIRONMENT?YES OCCUPATION: UNEMPLOYED. DIET: REGULAR. EXERCISE: DAILY, WALKS. MARITAL STATUS: SINGLE. OTHERS AT HOME: CHILDREN. - HAS THE PATIENT BEEN EDUCATED REGARDING HIS/HER PLAN OF CARE?YES HAS THE PATIENT BEEN EDUCATED REGARDING PAIN, THE RISK FOR PAIN, THE IMPORTANCE OF EFFECTIVE PAIN MANAGEMENT, AND THE PAIN ASSESSMENT PROCESS?YES ADVANCE DIRECTIVE ADVANCE DIRECTIVE DISCUSSED WITH PATIENT:YES 04/08/20 PT DOES NOT HAVE HCP AND DECLINES INFO AND ASSISTANCE AT THIS TIME. VITAL SIGNS WT 206.0 LBS, HT 65 IN, BMI 34.28 INDEX, BP 121/83 MM HG, HR 63 /MIN, RR 18 /MIN, TEMP 97.6 F, OXYGEN SAT % 98%, SAFE IN ENV? (Y/N) YES, NA INITIALS AW 1309, REVIEWED BY: MANJIT SHERMAN. EXAMINATION GENERAL: A HISTORY AND PHYSICAL EXAM ON THE PATIENT WAS DONE ON 07/21/2020 (DATE OF ORIGINAL ASSESSMENT) IN PREPARATION OF SURGERY/PROCEDURE. I HAVE NOW REASSESSED THIS PATIENT'S HEALTH STATUS AND PERFORMED AN UPDATED EXAM TODAY. ALL CHANGES IN THE PATIENT'S HISTORY, PHYSICAL EXAM, PRE-EXISTING CONDITONS, AND INDICATIONS/CONTRAINDICATIONS TO THE PLANNED PROCEDURE AND ANESTHESIA ARE DOCUMENTED AND EVALUATED BELOW. I ATTEST TO THE ADEQUACY AND APPROPRIATENESS OF MY ASSESSMENT, AND CONFIRM THE NECESSITY FOR THE PLANNED PROCEDURE. THE PATIENT IS ALERT, ORIENTED TIMES THREE AND COOPERATIVE. LUNGS ARE CLEAR TO AUSCULTATION. HEART SHOWS REGULAR RHYTHM, NO MURMURS AND NO GALLOPS. 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) TREATMENT NEURALGIA OF LEFT INGUINAL REGION MEDICATION: FENTANYL CITRATE 25MCG IVDILEONARDO,JANET 07/29/2020 3:11:55 PM > SECOND DOSE OREDERED, VERIFIED WITH CONNIE MEEKS 07/29/2020 3:47:10 PM > 1ST DOSE ADMINISTERED AT 1504 AND 2ND DOSE AT 1511 FOR A TOTAL OF 50MCG COMPLETION OF PROCEDURAL VISIT WHEN MEETS CRITERIA MED: VERSED 1MG IV [facility] 07/29/2020 2:06:03 PM > VERIFIED [facility] 07/29/2020 2:06:03 PM > VERIFIED DILEONARDO,JANET 07/29/2020 3:12:52 PM > SECOND DOSE ORDERED, VERIFIED WITH CONNIE MEEKS 07/29/2020 3:49:22 PM > 1ST DOSE ADMINISTERED AT 1503 AND 2ND DOSE ADMINISTERED AT 1512 FOR A TOTAL OF 2MGS MEDICATION: FENTANYL CITRATE 50MCG IV [facility] 07/29/2020 2:06:34 PM > VERIFIED [facility] 07/29/2020 2:06:34 PM > VERIFIED DILEONARDO,JANET 07/29/2020 4:00:35 PM > ORDER CANCELED OXYGEN AT 2 LITERS PER NASAL CANNULAEFRAÍNCONNIE 07/29/2020 3:51:41 PM > ON 2L/MIN VIA NC @ 1445 AND OFF AT 1526 [facility]2020 1:54:44 PM > IV STARTED WITH #20G IN RIGHT HAND ON 1ST ATTEMPT. RL INFUSING WITHOUT REDNESS OR SWELLING. PT TOLERATED WELL. CONNIE KENNY 07/29/2020 3:50:14 PM > TOTAL OF 225 ML GIVEN DURING THE PROCEDURE OTHERS NOTES: 07/27/20 1529 PAT COMPLETED. Jenn JEFFERY PSYCH SPECIALIST. PROCEDURES PAIN NURSING RECORD PROCEDURE IN ROOM 1440, PHYSICIAN IN ROOM 1500, START 1514, FINISH 1525, PHYSICIAN OUT OF ROOM 1527, OUT OF ROOM 1533, ECG NORMAL SINUS, PATIENT SHIELDED N/A, SAFETY STRAP N/A, PREP CHLOROPREP DR. HERNANDEZ, DRESSING TEGADERM DR. HERNANDEZ [facility]: [facility] 07/29/2020 3:04:39 PM > , 1. ALERT, ORIENTED , [facility] 07/29/2020 3:15:11 PM > , 1. ALERT, ORIENTED RESP: [facility] 07/29/2020 3:04:52 PM > , 1. REGULAR, NO DYSPNEA , [facility] 07/29/2020 3:15:39 PM > , 1. REGULAR, NO DYSPNEA COLOR: [facility] 07/29/2020 3:05:01 PM > , 1. PINK , [facility] 07/29/2020 3:15:01PM > , 1. PINK SKIN: [facility] 07/29/2020 3:05:07 PM > , 1. WARM, DRY , [facility] 07/29/2020 3:15:40 PM > , 1. WARM, DRY POSITION: [facility] 07/29/2020 3:05:14 PM > , 2. SUPINE VITALS: [facility] 07/29/2020 2:50:47 PM > 133/96 64 16 98% 2L N/C , [facility] 07/29/2020 2:55:26 PM > 136/92 HR 59 16 99% 2L N/C , [facility] 07/29/2020 3:00:14 PM > 130/94 HR 61 16 98% 2L N/C , [facility] 07/29/2020 3:05:51 PM > 137/97 HR 61 16 98% 2L N/C , [facility] 07/29/2020 3:10:54 PM >127/89 HR 63 16 99% 2L N/C , [facility] 07/[facility]/2020 3:15 PM > 139/82 HR 57 16 99% 2L N/C , [facility] 07/29/2020 3:20:51 PM > 127/77 HR 62 16 99% 2L N/C , [facility] 07/29/2020 3:25:44 PM > 130/77 HR61 16 97% 2L N/C , [facility] 07/29/2020 3:30:05 PM> 115/71 HR 3 18 95% R/A , [facility] 07/29/2020 335:49 PM > 125/81 HR 64 18 94% R/A [facility] 07/29/2020 3:45:08 PM>135/63 HR 69 16 98% R/A D/C V/S NOTES GROUNDING ELECTRODE PLACED ON LEFT LATERAL THIGH PRIOR TO PROCEDURE., BY Jenn HESTER RN COMPLETION OF PROCEDURE APPOINTMENT: POST PAIN 0, DRESSING SITE DRY AND INTACT, IV DISCONTINUED, SITE CLEAR, CATHETER INTACT, GAIT STEADY PATIENT TRANSFERRED TO VEHICLE/MOTHER VIA WHEELCHAIR., TEACHING COMPLETED, PATIENT ACKNOWLEDGES UNDERSTANDING YES REVIEWED POST SEDATION DISCHARGE INSTRUCTIONS WITH PATIENT'S MOTHER WHO VERBALIZED UNDERSTANDING,, PROCEDURE APPOINTMENT COMPLETED AT 1545 PRE PROCEDURE DIAGNOSIS LEFT GENITOFEMORAL NEURALGIA POST PROCEDURE DIAGNOSIS LEFT GENITOFEMORAL NEURALGIA PROCEDURE GENITOFEMORAL NERVE BLOCK SURGEON DR. ANGELINA HERNANDEZ SOFTWARE DESIGN ANALYST NONE ANESTHESIA LOCAL WITH IV SEDATION PRE PROCEDURE NOTE I WENT THROUGH THE RISKS, ALTERNATIVES, AND BENEFITS ASSOCIATED WITH THIS PROCEDURE AND THE PATIENT EXPRESSED THAT HE WOULD LIKE TO PROCEED. THE PATIENT WOULD LIKE TO MOVE FORWARD WITH IV SEDATION DUE TO DISCOMFORT, PAIN AND ANXIETY ASSOCIATED WITH THE PROCEDURE. THE PATIENT IS COVID-19 NEGATIVE DESCRIPTION OF PROCEDURE AFTER CONSENT WAS SIGNED, THE PATIENT WAS BROUGHT TO THE PROCEDURE ROOM AND PLACED IN THE SUPINE POSITION. A TIMEOUT WAS PERFORMED WHERE THE CONSENTED SITE WAS VERIFIED WITH EVERYONE IN THE ROOM. THE LEFT GENITOFEMORAL AREA WAS CLEANED WITH CHLORAPREP SOLUTION AND DRAPED ASEPTICALLY. THE PROCEDURE WAS DONE UNDER STERILE STANDARD TECHNIQUES. I CHECKED THE LOCATION OF THE FEMORAL ARTERY. I CONFIRMED AGAIN THE SITE OF [employer]. THEN, WITH THE ASSISTANCE OF A NERVE STIMULATOR, I WENT APPROXIMATELY 1 INCH LATERAL TO THE SYMPHYSIS PUBIS, FIRST AT 3 VOLTS AND THEN AT 0.5 VOLTS. THE PATIENT WAS HAVING STIMULATION TOWARDS THE LEFT TESTICLE WHERE HIS USUAL PAIN IS. WE INJECTED A TOTAL OF 20 ML OF BUPIVACAINE 0.125% AND KENALOG 40 MG. THE MEDICATIONS WERE VERIFIED WITH THE NURSE. THERE WAS NO EVIDENCE OF BLOOD, PARESTHESIA OR VISCERAL PUNCTURE. THERE WAS NO EVIDENCE OF ANY COMPLICATIONS. EBL LESS THAN 5 ML. THE PATIENT TOLERATED THE PROCEDURE WITHOUT COMPLICATIONS AND WAS SENT TO THE RECOVERY ROOM WHERE HE WAS MOVING HIS EXTREMITIES AND DOING WELL. FACE TO FACE START TIME 1303 END TIME 1327. TOTAL FACE-TO FACE TIME WAS 24 MINUTES POST PROCEDURE NOTE I WILL SEE THE PATIENT IN A FOLLOW UP IN THE NEXT FEW WEEKS. WE ARE LOOKING FOR LONG LASTING PAIN RELIEF WITH THIS INTERVENTION. THERE WERE NO COMPLICATIONS. INSTRUCTIONS WERE GIVEN, QUESTIONS WERE ANSWERED, AND THE PATIENT REPORTS UNDERSTANDING AND AGREES. I, JANET LOPEZ, DOCUMENTED THE ABOVE INFORMATION ACTING A SCRIBE FOR DR. HERNANDEZ. I HAVE REVIEWED THE ABOVE DOCUMENT, WRITTEN BY JANET LOPEZ, DEMONSTRATOR SALES, AND I VERIFY THAT IT IS ACCURATE. PROCEDURE CODES 74936 N BLOCK INJ ILIO-ING/HYPOGI, [place]IFIERS: [place] [address] MOD SED SAME PHYS/QHP 5/>YRS 84071 MOD SED SAME PHYS/QHP EA DISPOSITION & COMMUNICATION FOLLOW UP FOLLOW UP WITH DR. Chirinos (REASON: POST LEFT GENITOFEMORAL NERVE BLOCK) ELECTRONICALLY SIGNED BY ANGELINA HERNANDEZ MD, ON 08/04/2020 AT 12:53 PM EDT DISCLAIMER : THIS IS A VISIT SUMMARY EXTRACTED FROM THE [employer] CHART. IT IS NOT A COPY OF THE [employer] PROGRESS NOTE. MARY
== END ==
LOC: M PAIN 12:30
PROVIDERS: ATTEND Anesthesiology
DX: M79.2 Neuralgia and neuritis, unspecified (principal); G47.33 Obstructive sleep apnea (adult) (pediatric); J45.909 Unspecified asthma, uncomplicated; R25.1 Tremor, unspecified; F17.290 Nicotine dependence, other tobacco product, uncomplicated; Z86.59 Personal history of other mental and behavioral disorders; Z79.899 Other long term (current) drug therapy
CPT/HCPCS: 64425; 99152; 99153; J2250; J3010; J3301; Q9967

== ENCOUNTER → 2020-08-12 | Outpatient (CLI) | payer MEDICARE ==
[~2020-08-12] MED LIST changes: -BUPIVACAINE HCL 0.25% 30ML VIAL As Ordered ONE; -ISOVUE-M 300 61% 15ML VIAL As Ordered ONE; -LIDOCAINE 1% SDV 30ML VIAL As Ordered ONE; -MIDAZOLAM INJ 2MG/2ML VIAL (J2250 PER 1MG) As Ordered ONE; -TRIAMCINOLONE ACETONIDE SUSP 40 MG/ML VIAL (J3301) As Ordered ONE; -fentaNYL 100 MCG/2 ML INJECTION (J3010) As Ordered ONE
--- NOTE | 2020-08-13 01:32 | ECWPNPC ---
PATIENT NAME: OBED RAO : 1980 GENDER: MALE VISIT DATE: 08/12/2020 DISCHARGE DATE: 08/12/20 1541 VISIT LOCKED DATE TIME: PHYSICIAN: ANGELINA HERNANDEZ MD PHYSICIAN PAGER NO: INACTIVE RESOURCE: ANGELINA HERNANDEZ MD REASON FOR APPOINTMENT 1. POST LEFT GENITOFEMORAL NERVE BLOCK HISTORY OF PRESENT ILLNESS GENERAL: 40-YEAR-OLD MALE PATIENT WITH A HISTORY OF CHRONIC RIGHT INGUINAL PAIN. THE PATEINT HAS PERFORMED IN THE PAST INJECTIONS OVER THE RIGHT GENITOFEMEROAL NERVE THAT HAVE HELP SIGNIFICANT. A FEW WEEKS AGO, THE PATIENT HAD A LEFT GENITOFEMORAL NERVE BLOCK THAT HAS PROVIDED HIM MORE THAN 80 PERCENT RELIEF. HIS CONCERN NOW IS THE RIGHT SIDE. THE PATIENT DESCRIBES THE PAIN ACHING AND TENDER WITH A PAIN SCORE RANGING FROM 7-9/10 OVER THE RIGHT SIDE. HE HAS PAIN AND NUMBNESS OVER THE RIGHT TESTICLE. HE HAS TRIED MEDICATION MANAGEMENT AND THE PAIN PERSISTS. FALL RISK SCREENING: SCREENING : NO FALLS REPORTED IN THE LAST YEAR , : NO FALLS REPORTED IN THE LAST YEAR. PAIN SCREENING: PATIENT HAS A COMPLAINT OF ACUTE OR CHRONIC PAIN :NO NURSING NOTE: - -. PAIN CENTER INTAKE QUESTIONS: DO YOU HAVE A HISTORY OF MRSA? :NO DO YOU TAKE A BLOOD THINNERS? :NO DO YOU HAVE ANY BLEEDING DISORDERS? :NO ANY NEW NUMBNESS OR WEAKNESS IN YOUR LEGS OR ARMS? :NO ANY PACEMAKER,DEFIBRILLATOR, OR DORSAL COLUMN STIMULATOR? :NO DO YOU HAVE ANY RASHES OR OPEN SORES? :NO ARE YOU ALLERGIC TO IV DYE? :NO ARE YOU DIABETIC? :NO ANY NEW PROBLEMS WITH YOUR MEDICATIONS? :NO HAVE YOU RECEIVED A VACCINE IN THE PAST 30 DAYS? :NO DO YOU PLAN TO RECEIVE A VACCINE IN THE NEXT 21 DAYS? :NO DO YOU NEED ANY PRESCRIPTION? :NO DO YOU TAKE ANY IMMUNOSUPPRESSIVE MEDICATIONS? :NO DO YOU HAVE ANY KIDNEY OR LIVER DISEASE? :NO IS THERE A CHANCE YOU COULD BE ? :NO ARE YOU BREAST FEEDING? :NO CURRENT MEDICATIONS TAKING PROPRANOLOL HCL 20 MG TABLET 1 TABLET ORALLY TWICE A DAY TAKING PRIMIDONE 50 MG TABLET 1 ORALLY PO BID TAKING DEPAKOTE ER 500 MG TABLET EXTENDED RELEASE 24 HOUR 1 TABLET ORALLY THREE TIMES DAILY TAKING VITAMIN C 500 MG TABLET CHEWABLE 1 TABLET ORALLY ONCE A DAY- OTC TAKING EXCEDRIN TENSION HEADACHE 500-65 MG TABLET 2 TABLETS NEEDED ORALLY THREE TIMES A DAY TAKING OMEPRAZOLE 40 MG CAPSULE DELAYED RELEASE 1 CAPSULE ORALLY BID TAKING SIMVASTATIN 40 MG TABLET 1 TABLET IN THE EVENING ORALLY ONCE A DAY TAKING FLONASE ALLERGY RELIEF 50 MCG/ACT SUSPENSION 1 SPRAY IN EACH NOSTRIL NASALLY ONCE A DAY TAKING MONTELUKAST SODIUM 10 MG TABLET 1 TABLET ORALLY ONCE A DAY TAKING AYR SALINE NASAL NETI RINSE 1.57 GM PACKET DIRECTED NASALLY DAILY TAKING ALBUTEROL SULFATE HFA 108 (90 BASE) MCG/ACT AEROSOL SOLUTION 2 PUFFS NEEDED INHALATION EVERY 6 HRS TAKING VITAMIN D 50 MCG (2000 UT) CAPSULE 1 CAPSULE ORALLY ONCE A DAY TAKING AYANNA ALLERGY 180 MG TABLET 1 TABLET ORALLY ONCE A DAY TAKING NICORETTE 4 MG GUM 1 PIECE FOR 30 MINUTE NEEDED MOUTH/THROAT 24 TIME(S) A DAY TAKING RELPAX 20 MG TABLET 1 TABLET ORALLY ONCE A DAY PRN TAKING AIMOVIG 140 MG/ML SOLUTION AUTO-INJECTOR DIRECTED SUBCUTANEOUS ONCE A MONTH TAKING GUANFACINE HCL 1 MG TABLET 1 TAB ORALLY ONCE A DAY TAKING GABAPENTIN 100 MG CAPSULE 2 CAP ORALLY FOR PAIN TID TAKING HYDROCODONE-ACETAMINOPHEN 7.5-325 MG TABLET 1 TABLET NEEDED ORALLY EVERY 4 HRS MDD: 6, NOTES: ENT UTICA NOT-TAKING KETOROLAC TROMETHAMINE 10 MG TABLET 1 TABLET WITH FOOD OR MILK NEEDED ORALLY EVERY 6 HRS NOT-TAKING KETOROLAC TROMETHAMINE 10 MG TABLET 1 TABLET WITH FOOD OR MILK NEEDED ORALLY EVERY 6 HRS NOT-TAKING BOTOX 100 UNIT SOLUTION RECONSTITUTED DIRECTED INJECTION EVERY MONTH NOT-TAKING NICOTROL 10 MG INHALER 1 CARTRIDGE NEEDED INHALATION 16 TIME(S) A DAY NOT-TAKING AMOXICILLIN 500 MG CAPSULE 1 CAPSULE ORALLY EVERY 12 HRS NOT-TAKING CYMBALTA 60 MG CAPSULE DELAYED RELEASE PARTICLES 1 CAPSULE ORALLY FOR PAIN DAILY NOT-TAKING HIBICLENS 4 % LIQUID DIRECTED EXTERNALLY DAILY AT PELVIC AREA NOT-TAKING CETIRIZINE HCL 10 MG TABLET 1 TABLET ORALLY ONCE A DAY NOT-TAKING ZOLMITRIPTAN 5 MG TABLET 1 TABLET NEEDED ONE TIME ORALLY ONCE A DAY NOT-TAKING SUCRALFATE 1 GM TABLET ORAL DIRECTED NOT-TAKING PERCOCET 10-325 MG TABLET 1 TABLET NEEDED ORALLY EVERY 6 HRS, NOTES: FOR SINUS SURGERY NOT-TAKING KEFLEX 500 MG CAPSULE 1 CAPSULE ORALLY EVERY 12 HRS MEDICATION LIST REVIEWED AND RECONCILED WITH THE PATIENT PAST MEDICAL HISTORY HIGH CHOLESTEROL BIPOLAR ADHD ALLERGIES ASTHMA SLEEP APNEA 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 COLONOSCOPY 03/2018: MILD NONSPECIFIC CHRONIC INFLAMMATION NOTED ON BIOPSY, NO ACTIVE COLITIS, DYSPLASIA OR GRANULOMA IDENTIFIED EGD 03/2018: MILD CHRONIC GASTRITIS NOTED ON BIOPSY, NO H-PYLORI RIANNA: MANAGED BY NEUROLOGY SCR[facility] PAIN ED- FOLLOWING WITH UROLOGY CAR[facility] 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 INFECTION ALLERGIES SEASONAL ALLERGIES: SNEEZING, COUGHING - ALLERGY SOCIAL HISTORY GENERAL: TOBACCO USE ARE YOU A:FORMER SMOKER NICOTINE GUM HOW LONG HAS IT BEEN SINCE YOU LAST SMOKED?6-12 MONTHS SMOKING CESSATION INFORMATION GIVEN07/10/2020 VAPORNO E-CIGARETTENO LATEX QUESTIONNAIRE LATEX ALLERGY : HAVE YOU EVER DEVELOPED ANY TYPE OF REACTION AFTER HANDLING LATEX PRODUCTS SUCH RUBBER GLOVES, CONDOMS, DIAPHRAGMS, BALLOONS, SOCKS, OR UNDERWEAR?NO LATEX ALLERGY : HAVE YOU EVER DEVELOPED ANY TYPE OF REACTION DURING OR AFTER DENTAL APPOINTMENT, VAGINAL/RECTAL EXAMINATION, SURGICAL PROCEDURE, OR ANY OTHER EXPOSURE?NO LATEX RISK : HAVE YOU EVER HAD ANY DIFFICULTY BREATHING OR HIVES AFTER EATING OR HANDLING ANY FRUITS, OR VEGETABLES; SUCH KIWI, BANANAS, STONE FRUITS, OR CHESTNUTSNO LATEX RISK : DO YOU HAVE A PREVIOUS PERSONAL HISTORY OF MORE THAN NINE SURGERIES, SPINA BIFIDA, OR REPEATED CATHERIZATIONS? YES - PLEASE INDICATE : > 9 SURGERIES LATEX RISK : ARE YOU FREQUENTLY EXPOSED TO LATEX PRODUCTS IN YOUR OCCUPATION?NO DATE ASKED : 07/27/2020 ALCOHOL USE: NO. ALCOHOL SCREENING DID YOU HAVE A DRINK CONTAINING ALCOHOL IN THE PAST YEAR?YES HOW OFTEN DID YOU HAVE SIX OR MORE DRINKS ON ONE OCCASION IN THE PAST YEAR?NEVER (0 POINTS) HOW MANY DRINKS DID YOU HAVE ON A TYPICAL DAY WHEN YOU WERE DRINKING IN THE PAST YEAR?1 OR 2 (0 POINTS) HOW OFTEN DID YOU HAVE A DRINK CONTAINING ALCOHOL IN THE PAST YEAR?MONTHLY OR LESS (1 POINT) POINTS1 INTERPRETATIONNEGATIVE RECREATIONAL DRUG USE DRUG USE?NO CAFFEINE CAFFEINE USE?NO PEPSI 3 BOTTLES A DAY SEXUAL HX HAD SEX IN THE LAST 12 MONTHS (VAGINAL, ORAL, OR ANAL)?YES WITHWOMEN ONLY PREVENTION STRATEGIES DISCUSSED:OTHER USE PROTECTION?NO HAVE YOU EVER HAD AN STD?NO HIV / HEP-C SCREENING HIV TEST OFFERED TO PATIENT:YES DATE OFFERED:05/01/2017 TEST ACCEPTED:NO REASON:PATIENT DECLINED MANDAEN [id number] CHRISTIAN LANGUAGE LANGUAGES SPOKEN:BRAZILIAN EDUCATION LEVEL OF EDUCATION:HIGH SCHOOL LEARNING BARRIERS / SPECIAL NEEDS CHANGE FROM LAST VISIT?NO BARRIERS TO LEARNING?NO HEARING IMPAIRED?NO VISION IMPAIRED?YES :CORRECTIVE LENSES COGNITIVELY IMPAIRED?NO READINESS TO LEARN?YES LEARNING PREFERENCES?NO LEARNING CAPABILITIES PRESENT?YES ADHD-NO DIFFICULTY WITH LEARNING EMOTIONAL BARRIERS?NO SPECIAL DEVICES?NO REWINDER OPERATOR HELPER NEEDED?NO DOMESTIC VIOLENCE DO YOU FEEL SAFE IN YOUR ENVIRONMENT?YES OCCUPATION: UNEMPLOYED. DIET: REGULAR. EXERCISE: DAILY, WALKS. MARITAL STATUS: SINGLE. OTHERS AT HOME: CHILDREN. - HAS THE PATIENT BEEN EDUCATED REGARDING HIS/HER PLAN OF CARE?YES HAS THE PATIENT BEEN EDUCATED REGARDING PAIN, THE RISK FOR PAIN, THE IMPORTANCE OF EFFECTIVE PAIN MANAGEMENT, AND THE PAIN ASSESSMENT PROCESS?YES ADVANCE DIRECTIVE ADVANCE DIRECTIVE DISCUSSED WITH PATIENT:YES 04/08/20 PT DOES NOT HAVE HCP AND DECLINES INFO AND ASSISTANCE AT THIS TIME. REVIEW OF SYSTEMS GLAUCOMA: NOTHYROID DISEASE: NOHYPERTENSION: NOHEART DISEASE: NOLUNG DISEASE: NODIABETES: NOGI DISEASE: NO LIVER DISEASE: NO KIDNEY DISEASE: NOSTERIOD USE: NONEUROLOGICAL DISEASE: NOBACK PROBLEMS: YES, PAINEXTREMITIES: YES, PAINGENITOURINARY: NOBLEEDING DISORDER: NOASA CLASS: IIAIRWAY CLASS: II. VITAL SIGNS WT 204 LBS, HT 65 IN, BMI 33.94 INDEX, BP 144/92 MM HG, HR 67 /MIN, RR 14 /MIN, TEMP 97.0 F, OXYGEN SAT % 97, SAFE IN ENV? (Y/N) YES, REVIEWED BY: GEENA. EXAMINATION GENERAL: THE PATIENT IS ALERT, ORIENTED TIMES THREE AND COOPERATIVE. LUNGS ARE CLEAR TO AUSCULTATION. HEART SHOWS REGULAR RHYTHM, NO MURMURS AND NO GALLOPS. THERE IS TENDERNESS IN THE RIGHT INGUINAL AREA AND TOWARDS THE TESTICAL. THE LEFT SIDE IS MUCH BETTER. 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 Otilia KENNY RN . CLINICAL NOTES: I DISCUSSED ALTERNATIVES WITH MR. RAO. WE AGREE ON DOING A RIGHT GENITOFEMORAL NERVE BLOCK WITH IV SEDATION DUE TO ANXIETY AND DISCOMFORT ASSOCIATED WITH THE PROCEDURE. THIS PROCEDURE HAS WORK VERY WELL FOR HIM IN THS PAST. THE LEFT SIDE IS DOING MUCH BETTER. THE PATIENT REPORTS UNDERSTANDING AND AGREES WITH THE PLAN. I, JANET LOPEZ, DOCUMENTED THE ABOVE INFORMATION ACTING A SCRIBE FOR DR. HERNANDEZ. I HAVE REVIEWED THE ABOVE DOCUMENT, WRITTEN BY JANET LOPEZ, TOP DYEING MACHINE LOADER, AND I VERIFY THAT IT IS ACCURATE. GENITOFEMORAL NEURALGIA OF RIGHT SIDE IV LACTATED RINGER'S AT KVO (ORDERED FOR 08/19/2020) OXYGEN AT 2 LITERS PER NASAL CANNULA (ORDERED FOR 08/19/2020) MED: ZOFRAN 4MG/2ML IV ONDANSETRON (ORDERED FOR 08/19/2020) MED: PAIN BENADRYL 25MG IV DIPHENHYDRAMINE (ORDERED FOR 08/19/2020) MED: VERSED 1MG IV MIDAZOLAM (ORDERED FOR 08/19/2020) MEDICATION: FENTANYL CITRATE 50MCG IV (ORDERED FOR 08/19/2020) PROCEDURE CODES FA211 ESTABILISHED PATIENT [facility] CHARGE [id number] OFFICE/OUTPATIENT VISIT EST DISPOSITION & COMMUNICATION FOLLOW UP REQUEST AUTH FOR RIGHT GENITOFEMORAL NERVE BLOCK WITH IV SEDATION (REASON: REQUEST AUTH FOR RIGHT GENITOFEMORAL NERVE BLOCK WITH IV SEDATION) ELECTRONICALLY SIGNED BY ANGELINA HERNANDEZ MD, MD ON 08/12/2020 AT 05:28 PM EDT DISCLAIMER : THIS IS A VISIT SUMMARY EXTRACTED FROM THE [employer] CHART. IT IS NOT A COPY OF THE [employer] PROGRESS NOTE. SHARLAD
== END ==
LOC: M PAIN 13:40
PROVIDERS: ATTEND Anesthesiology
DX: G58.8 Other specified mononeuropathies (principal); G89.29 Other chronic pain; J45.909 Unspecified asthma, uncomplicated; G47.33 Obstructive sleep apnea (adult) (pediatric); R25.1 Tremor, unspecified; F17.290 Nicotine dependence, other tobacco product, uncomplicated; Z86.59 Personal history of other mental and behavioral disorders; Z79.899 Other long term (current) drug therapy

== ENCOUNTER → 2020-08-15 | Outpatient (CLI) | payer MEDICARE | LOC: M LABSMTC 11:25 | PROVIDERS: ATTEND Anesthesiology | DX: Z01.812 Encounter for preprocedural laboratory examination (principal); Z11.52 Encounter for screening for COVID-19 ==

== ENCOUNTER → 2020-08-20 | Outpatient (CLI) | payer MEDICARE ==
[~2020-08-20] MED LIST changes: +BUPIVACAINE HCL 0.25% 30ML VIAL As Ordered ONE; +LIDOCAINE 1% SDV 30ML VIAL As Ordered ONE; +MIDAZOLAM INJ 2MG/2ML VIAL (J2250 PER 1MG) As Ordered ONE; +ONDANSETRON 4MG/2ML VIAL As Ordered ONE; +TRIAMCINOLONE ACETONIDE SUSP 40 MG/ML VIAL (J3301) As Ordered ONE; +diphenhydrAMINE 50MG/ML VIAL (J1200) As Ordered ONE; +fentaNYL 100 MCG/2 ML INJECTION (J3010) As Ordered ONE
--- NOTE | 2020-08-20 23:49 | ECWPNPC ---
PATIENT NAME: OBED RAO : 1980 GENDER: MALE VISIT DATE: 08/20/2020 DISCHARGE DATE: 08/20/20 1205 VISIT LOCKED DATE TIME: PHYSICIAN: ANGELINA HERNANDEZ MD PHYSICIAN PAGER NO: INACTIVE RESOURCE: ANGELINA HERNANDEZ MD REASON FOR APPOINTMENT 1. RIGHT GENITOFEMORAL NERVE BLOCK WITH IV SEDATION - OK PER ARSH HISTORY OF PRESENT ILLNESS GENERAL: -. FALL RISK SCREENING: SCREENING : NO FALLS REPORTED IN THE LAST YEAR. PAIN SCREENING: PATIENT HAS A COMPLAINT OF ACUTE OR CHRONIC PAIN :YES LOCATION OF PAIN:OTHER: RIGHT GROIN, RIGHT TESTICLE, RIGHT LEG INTENSITY OF PAIN (SCALE OF 1 TO 10):10 WHAT DOES YOUR PAIN FEEL LIKE:ACHING, CONTINOUS, SHARP, STABBING, THROBBING, SHOOTING DURATION:CONTINOUS, CONSTANT, ALL DAY PAIN IS INCREASED BY:OTHERS INTERCOURSE PAIN IS DECREASED BY:OTHERS INJECTIONS NURSING NOTE: -. PAIN CENTER INTAKE QUESTIONS: DO YOU HAVE A HISTORY OF MRSA? :NO DO YOU TAKE A BLOOD THINNERS? :NO DO YOU HAVE ANY BLEEDING DISORDERS? :NO ANY NEW NUMBNESS OR WEAKNESS IN YOUR LEGS OR ARMS? :NO ANY PACEMAKER,DEFIBRILLATOR, OR DORSAL COLUMN STIMULATOR? :NO DO YOU HAVE ANY RASHES OR OPEN SORES? :YES LEFT INDEX FINGER - CUT WITH KNIFE, CUT NOT INFECTED - WAS SEEN BY PCP 08/19/20 ARE YOU ALLERGIC TO IV DYE? :NO ARE YOU DIABETIC? :NO ANY NEW PROBLEMS WITH YOUR MEDICATIONS? :NO HAVE YOU RECEIVED A VACCINE IN THE PAST 30 DAYS? :NO DO YOU PLAN TO RECEIVE A VACCINE IN THE NEXT 21 DAYS? :NO DO YOU TAKE ANY IMMUNOSUPPRESSIVE MEDICATIONS? :NO ANY HISTORY OF SEIZURES? :NO ANY HISTORY OF CARDIAC ISSUES OR EVENTS? :NO DO YOU HAVE ANY KIDNEY OR LIVER DISEASE? :NO DO YOU HAVE SLEEP APNEA? :YES DO YOU WEAR A CPAP?YES AUTOPAP ANY RECENT HEAD INJURY? :NO DO YOU HAVE ANY NEW INFECTIONS? :NO IS THERE A CHANCE YOU COULD BE ? :NO ARE YOU BREAST FEEDING? :NO WHEN DID YOU LAST EAT? : 08/19/20 WHEN DID YOU LAST DRINK? : 08/20/20 WHAT DID YOU LAST DRINK? : PEPSI NAME OF PERSON DRIVING YOU HOME? : MOM DO YOU HAVE ANY OTHER QUESTIONS OR CONCERNS? : - CURRENT MEDICATIONS TAKING PROPRANOLOL HCL 20 MG TABLET 1 TABLET ORALLY TWICE A DAY, NOTES: 08/19/20 TAKING PRIMIDONE 50 MG TABLET 1 ORALLY PO BID, NOTES: 08/19/20 TAKING DEPAKOTE ER 500 MG TABLET EXTENDED RELEASE 24 HOUR 1 TABLET ORALLY THREE TIMES DAILY TAKING VITAMIN C 500 MG TABLET CHEWABLE 1 TABLET ORALLY ONCE A DAY- OTC TAKING EXCEDRIN TENSION HEADACHE 500-65 MG TABLET 2 TABLETS NEEDED ORALLY THREE TIMES A DAY TAKING OMEPRAZOLE 40 MG CAPSULE DELAYED RELEASE 1 CAPSULE ORALLY BID TAKING SIMVASTATIN 40 MG TABLET 1 TABLET IN THE EVENING ORALLY ONCE A DAY TAKING FLONASE ALLERGY RELIEF 50 MCG/ACT SUSPENSION 1 SPRAY IN EACH NOSTRIL NASALLY ONCE A DAY TAKING MONTELUKAST SODIUM 10 MG TABLET 1 TABLET ORALLY ONCE A DAY TAKING AYR SALINE NASAL NETI RINSE 1.57 GM PACKET DIRECTED NASALLY DAILY TAKING ALBUTEROL SULFATE HFA 108 (90 BASE) MCG/ACT AEROSOL SOLUTION 2 PUFFS NEEDED INHALATION EVERY 6 HRS TAKING VITAMIN D 50 MCG (2000 UT) CAPSULE 1 CAPSULE ORALLY ONCE A DAY TAKING AYANNA ALLERGY 180 MG TABLET 1 TABLET ORALLY ONCE A DAY TAKING NICORETTE 4 MG GUM 1 PIECE FOR 30 MINUTE NEEDED MOUTH/THROAT 24 TIME(S) A DAY TAKING RELPAX 20 MG TABLET 1 TABLET ORALLY ONCE A DAY PRN TAKING AIMOVIG 140 MG/ML SOLUTION AUTO-INJECTOR DIRECTED SUBCUTANEOUS ONCE A MONTH TAKING GUANFACINE HCL 1 MG TABLET 1 TAB ORALLY ONCE A DAY TAKING GABAPENTIN 100 MG CAPSULE 2 CAP ORALLY FOR PAIN TID, NOTES: 08/19/20 TAKING HYDROCODONE-ACETAMINOPHEN 7.5-325 MG TABLET 1 TABLET NEEDED ORALLY EVERY 4 HRS MDD: 6, NOTES: 08/19/20 NOT-TAKING KETOROLAC TROMETHAMINE 10 MG TABLET 1 TABLET WITH FOOD OR MILK NEEDED ORALLY EVERY 6 HRS NOT-TAKING KETOROLAC TROMETHAMINE 10 MG TABLET 1 TABLET WITH FOOD OR MILK NEEDED ORALLY EVERY 6 HRS NOT-TAKING BOTOX 100 UNIT SOLUTION RECONSTITUTED DIRECTED INJECTION EVERY MONTH NOT-TAKING NICOTROL 10 MG INHALER 1 CARTRIDGE NEEDED INHALATION 16 TIME(S) A DAY NOT-TAKING AMOXICILLIN 500 MG CAPSULE 1 CAPSULE ORALLY EVERY 12 HRS NOT-TAKING CYMBALTA 60 MG CAPSULE DELAYED RELEASE PARTICLES 1 CAPSULE ORALLY FOR PAIN DAILY NOT-TAKING HIBICLENS 4 % LIQUID DIRECTED EXTERNALLY DAILY AT PELVIC AREA NOT-TAKING CETIRIZINE HCL 10 MG TABLET 1 TABLET ORALLY ONCE A DAY NOT-TAKING ZOLMITRIPTAN 5 MG TABLET 1 TABLET NEEDED ONE TIME ORALLY ONCE A DAY NOT-TAKING SUCRALFATE 1 GM TABLET ORAL DIRECTED NOT-TAKING PERCOCET 10-325 MG TABLET 1 TABLET NEEDED ORALLY EVERY 6 HRS, NOTES: FOR SINUS SURGERY NOT-TAKING KEFLEX 500 MG CAPSULE 1 CAPSULE ORALLY EVERY 12 HRS MEDICATION LIST REVIEWED AND RECONCILED WITH THE PATIENT PAST MEDICAL HISTORY HIGH CHOLESTEROL BIPOLAR ADHD ALLERGIES ASTHMA SLEEP APNEA 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 COLONOSCOPY 03/2018: MILD NONSPECIFIC CHRONIC INFLAMMATION NOTED ON BIOPSY, NO ACTIVE COLITIS, DYSPLASIA OR GRANULOMA IDENTIFIED EGD 03/2018: MILD CHRONIC GASTRITIS NOTED ON BIOPSY, NO H-PYLORI RIANNA: MANAGED BY NEUROLOGY SCROTAL PAIN ED- FOLLOWING WITH UROLOGY CATHIEHAJULIANNA 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 INFECTION ALLERGIES SEASONAL ALLERGIES: SNEEZING, COUGHING - ALLERGY SOCIAL HISTORY GENERAL: TOBACCO USE ARE YOU A:FORMER SMOKER NICOTINE GUM HOW LONG HAS IT BEEN SINCE YOU LAST SMOKED?6-12 MONTHS SMOKING CESSATION INFORMATION GIVEN07/10/2020 VAPORNO E-CIGARETTENO LATEX QUESTIONNAIRE LATEX ALLERGY : HAVE YOU EVER DEVELOPED ANY TYPE OF REACTION AFTER HANDLING LATEX PRODUCTS SUCH RUBBER GLOVES, CONDOMS, DIAPHRAGMS, BALLOONS, SOCKS, OR UNDERWEAR?NO LATEX ALLERGY : HAVE YOU EVER DEVELOPED ANY TYPE OF REACTION DURING OR AFTER DENTAL APPOINTMENT, VAGINAL/RECTAL EXAMINATION, SURGICAL PROCEDURE, OR ANY OTHER EXPOSURE?NO LATEX RISK : HAVE YOU EVER HAD ANY DIFFICULTY BREATHING OR HIVES AFTER EATING OR HANDLING ANY FRUITS, OR VEGETABLES; SUCH KIWI, BANANAS, STONE FRUITS, OR CHESTNUTSNO LATEX RISK : DO YOU HAVE A PREVIOUS PERSONAL HISTORY OF MORE THAN NINE SURGERIES, SPINA BIFIDA, OR REPEATED CATHERIZATIONS? YES - PLEASE INDICATE : > 9 SURGERIES LATEX RISK : ARE YOU FREQUENTLY EXPOSED TO LATEX PRODUCTS IN YOUR OCCUPATION?NO DATE ASKED : 07/27/2020 ALCOHOL USE: NO. ALCOHOL SCREENING DID YOU HAVE A DRINK CONTAINING ALCOHOL IN THE PAST YEAR?YES HOW OFTEN DID YOU HAVE SIX OR MORE DRINKS ON ONE OCCASION IN THE PAST YEAR?NEVER (0 POINTS) HOW MANY DRINKS DID YOU HAVE ON A TYPICAL DAY WHEN YOU WERE DRINKING IN THE PAST YEAR?1 OR 2 (0 POINTS) HOW OFTEN DID YOU HAVE A DRINK CONTAINING ALCOHOL IN THE PAST YEAR?MONTHLY OR LESS (1 POINT) POINTS1 INTERPRETATIONNEGATIVE RECREATIONAL DRUG USE DRUG USE?NO CAFFEINE CAFFEINE USE?NO PEPSI 3 BOTTLES A DAY SEXUAL HX HAD SEX IN THE LAST 12 MONTHS (VAGINAL, ORAL, OR ANAL)?YES WITHWOMEN ONLY PREVENTION STRATEGIES DISCUSSED:OTHER USE PROTECTION?NO HAVE YOU EVER HAD AN STD?NO HIV / HEP-C SCREENING HIV TEST OFFERED TO PATIENT:YES DATE OFFERED:05/01/2017 TEST ACCEPTED:NO REASON:PATIENT DECLINED MORMON [id number] TENRIISM LANGUAGE LANGUAGES SPOKEN:SYRIAN EDUCATION LEVEL OF EDUCATION:HIGH SCHOOL LEARNING BARRIERS / SPECIAL NEEDS CHANGE FROM LAST VISIT?NO BARRIERS TO LEARNING?NO HEARING IMPAIRED?NO VISION IMPAIRED?YES :CORRECTIVE LENSES COGNITIVELY IMPAIRED?NO READINESS TO LEARN?YES LEARNING PREFERENCES?NO LEARNING CAPABILITIES PRESENT?YES ADHD-NO DIFFICULTY WITH LEARNING EMOTIONAL BARRIERS?NO SPECIAL DEVICES?NO FOOD SCIENTIST NEEDED?NO DOMESTIC VIOLENCE DO YOU FEEL SAFE IN YOUR ENVIRONMENT?YES OCCUPATION: UNEMPLOYED. DIET: REGULAR. EXERCISE: DAILY, WALKS. MARITAL STATUS: SINGLE. OTHERS AT HOME: CHILDREN. - HAS THE PATIENT BEEN EDUCATED REGARDING HIS/HER PLAN OF CARE?YES HAS THE PATIENT BEEN EDUCATED REGARDING PAIN, THE RISK FOR PAIN, THE IMPORTANCE OF EFFECTIVE PAIN MANAGEMENT, AND THE PAIN ASSESSMENT PROCESS?YES ADVANCE DIRECTIVE ADVANCE DIRECTIVE DISCUSSED WITH PATIENT:YES 04/08/20 PT DOES NOT HAVE HCP AND DECLINES INFO AND ASSISTANCE AT THIS TIME. VITAL SIGNS WT 205.4 LBS, HT 65 IN, BMI 34.18 INDEX, BP 123/78 MM HG, HR 63 /MIN, RR 18 /MIN, TEMP 98.5 F, OXYGEN SAT % 98%, SAFE IN ENV? (Y/N) Y, NA INITIALS SC 08:55, REVIEWED BY: CHERIE. EXAMINATION GENERAL: THE PATIENT IS ALERT, ORIENTED TIMES THREE AND COOPERATIVE. LUNGS ARE CLEAR TO AUSCULTATION. HEART SHOWS REGULAR RHYTHM, NO MURMURS AND NO GALLOPS. 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 TOTAL GIVEN: 25 MCG. COMPLETION OF PROCEDURAL VISIT WHEN MEETS CRITERIAPETRAS,SANTHOSH R 08/20/2020 12:04:17 PM > CRITERIA MET MED: VERSED 1MG IV MIDAZOLAMPEANNEMARIE BARNESIL R 08/20/2020 10:13:13 AM > VERIFIED LOGANROMULO VERDUGO Emmanuel 08/20/2020 11:53:20 AM > GIVEN @ 1120. TOTAL AMOUNT GIVEN: 1 MG. MED: ZOFRAN 4MG/2ML IV ONDANSETRONPEANNEMARIE BARNESIL R 08/20/2020 10:13:27 AM > VERIFIED MELLOROMULO Emmanuel 08/20/2020 10:19:59 AM > ADMINISTERED. MEDICATION: FENTANYL CITRATE 50MCG IV LISA DOZIERGAIL R 08/20/2020 10:13:41 AM > VERIFIED TASIASANTHOSH R 08/20/2020 10:13:41 AM > VERIFIED DILEONARDOJANET 08/20/2020 11:39:07 AM > ORDER CANCELED OXYGEN AT 2 LITERS PER NASAL CANNULAPETRAANNEMARIE VillarrealIL R 08/20/2020 10:43:06 AM > ON AT 1038 PETRLISA ALEJANDROSANTHOSH R 08/20/2020 11:42:19 AM > OFF AT 1140 IV LACTATED RINGER'S AT KVROMULO UNDERWOOD Emmanuel 08/20/2020 10:02:42 AM > IV INSERTED IN LEFT HAND, 22 GAUGE, ON FIRST ATTEMPT. SITE CLEAR, FLUSHING WITHOUT DIFFICULTY. LR STARTED PER ORDER. ANNEMARIE DOZIERIL R 08/20/2020 11:42:02 AM > 100ML LR INFUSED TOTAL MELLOABDIASROMULO L 08/20/2020 11:59:42 AM > IV REMOVED, CATHETER TIP INTACT, SITE CLEAR. DSD PLACED OVER SITE. MED: PAIN BENADRYL 25MG IV DIPHENHYDRAMINEPEANNEMARIE BARNESIL R 08/20/2020 10:13:56 AM > VERIFIED MELLOROMULO L 08/20/2020 10:21:45 AM > ADMINISTERED. OTHERS NOTES: 08/19/20 1500 PAT COMPLETED. Romel SARKAR RN. PROCEDURES PAIN NURSING RECORD PROCEDURE IN ROOM 1035, PHYSICIAN IN ROOM 1109, START 1125, FINISH 1137, PHYSICIAN OUT OF ROOM 1139, OUT OF ROOM 1149, ECG OTHER SINUS BRADYCARDIA, PATIENT SHIELDED N/A, SAFETY STRAP YES, PREP CHLOROPREP Otilia DOZIER RN, DRESSING TEGADERM DR. HERNANDEZ LOC: PETRAS,SANTHOSH R 08/20/2020 11:18:13 AM > , 1. ALERT, ORIENTED, PETRAS,SANTHOSH R 08/20/2020 11:25:46 AM > , , 2. DROWSY, RESPONDS APPROPRIATELY , PETRAS,SANTHOSH R 08/20/2020 11:58:42 AM , 1. ALERT, ORIENTED RESP: PETRAS,SANTHOSH R 08/20/2020 11:25:48 AM > , 1. REGULAR, NO DYSPNEA COLOR: PETRAS,SANTHOSH R 08/20/2020 11:25:51 AM > , 1. PINK SKIN: PETRAS,SANTHOSH R 08/20/2020 11:25:56 AM > , 1. WARM, DRY POSITION: PETRAS,SNATHOSH R 08/20/2020 11:25:59 AM > , 2. SUPINE VITALS: PETRAS,SANTHOSH R 08/20/2020 10:41:16 AM > 109/85, 57, 16, 99% PETRAS,SANTHOSH R 08/20/2020 10:43:27 AM > 155/97, 56, 16, 98% PETRAS,SANTHOSH R 08/20/2020 10:48:08 AM > 148/89, 52, 16, 98% PETRAS,SANTHOSH R 08/20/2020 10:53:13 AM > 140/96, 53, 16, 99% PETRAS,SANTHOSH R 08/20/2020 10:59:03 AM > 142/87, 54, 16, 99% PETRAS,SANTHOSH R 08/20/2020 11:04:03 AM > 138/85, 53, 16, 99% PETRAS,SANTHOSH R 08/20/2020 11:09:44 AM > 146/80, 54, 16, 98% PETRAS,SANTHOSH R 08/20/2020 11:13:09 AM > 143/81, 54, 16, 99% PETRAS,SANTHOSH R 08/20/2020 11:18:07 AM > 143/85, 55, 16, 98% PETRAS,SANTHOSH R 08/20/2020 11:23:19 AM > 143/81, 55, 16, 98% PETRAS,SANTHOSH R 08/20/2020 11:28:31 AM > 129/71, 58, 16, 98% PETRAS,SANTHOSH R 08/20/2020 11:33:03 AM > 135/89, 57, 16, 97% PETRAS,SANTHOSH R 08/20/2020 11:38:27 AM > 140/87, 54, 16, 98% PETRAS,SANTHOSH R 08/20/2020 11:43:50 AM > 143/89, 54, 16, 98% PETRAS,SANTHOSH R 08/20/2020 11:48:16 AM > 124/80, 57, 16, 97% PETRAS,SANTHOSH R 08/20/2020 11:58:54 AM > 130/89, 71, 16, 98% COMPLETION OF PROCEDURE APPOINTMENT: POST PAIN 0, DRESSING SITE DRY AND INTACT, IV DISCONTINUED, SITE CLEAR, CATHETER INTACT, GAIT WHEELCHAIR, TEACHING COMPLETED, PATIENT ACKNOWLEDGES UNDERSTANDING YES, PROCEDURE APPOINTMENT COMPLETED AT 1204 BY: Otilia DOZIER RN PRE PROCEDURE DIAGNOSIS RIGHT GENITOFEMORAL NEURALGIA POST PROCEDURE DIAGNOSIS RIGHT GENTIOFEMORAL NEURALGIA PROCEDURE GENITOFEMORAL NERVE BLOCK SURGEON DR. ANGELINA HERNANDEZ COUNTER TOP ASSEMBLER NONE ANESTHESIA LOCAL WITH IV SEDATION PRE PROCEDURE NOTE I WENT THROUGH THE RISKS, ALTERNATIVES, AND BENEFITS ASSOCIATED WITH THIS PROCEDURE AND THE PATIENT EXPRESSED THAT HE WOULD LIKE TO PROCEED. THE PATIENT WOULD LIKE TO MOVE FORWARD WITH IV SEDATION DUE TO DISCOMFORT, PAIN AND ANXIETY ASSOCIATED WITH THE PROCEDURE. THE PATIENT IS COVID-19 NEGATIVE DESCRIPTION OF PROCEDURE AFTER CONSENT WAS SIGNED, THE PATIENT WAS BROUGHT TO THE PROCEDURE ROOM AND PLACED IN THE SUPINE POSITION. A TIMEOUT WAS PERFORMED WHERE THE CONSENTED SITE WAS VERIFIED WITH EVERYONE IN THE ROOM. THE RIGHT GENITOFEMORAL AREA WAS CLEANED WITH CHLORAPREP SOLUTION AND DRAPED ASEPTICALLY. THE PROCEDURE WAS DONE UNDER STERILE STANDARD TECHNIQUES. I CHECKED THE LOCATION OF THE FEMORAL ARTERY. I CONFIRMED AGAIN THE SITE OF TARGET. THEN, WITH THE ASSISTANCE OF A NERVE STIMULATOR, I WENT APPROXIMATELY 1 INCH LATERAL TO THE SYMPHYSIS PUBIS, FIRST AT 3 VOLTS AND THEN AT 0.5 VOLTS. THE PATIENT WAS HAVING STIMULATION TOWARDS THE RIGHT TESTICLE WHERE HIS USUAL PAIN IS. WE INJECTED A TOTAL OF 20 ML OF BUPIVACAINE 0.125% AND KENALOG 40 MG. THE MEDICATIONS WERE VERIFIED WITH THE NURSE. THERE WAS NO EVIDENCE OF BLOOD, PARESTHESIA OR VISCERAL PUNCTURE. THERE WAS NO EVIDENCE OF ANY COMPLICATIONS. EBL LESS THAN 5 ML. THE PATIENT TOLERATED THE PROCEDURE WITHOUT COMPLICATIONS AND WAS SENT TO THE RECOVERY ROOM WHERE HE WAS MOVING HIS EXTREMITIES AND DOING WELL. THE PATIENT RECEIVED VERSED 1 MG AND FENTANYL 25 MCG AND BENADRYL 25 MG IV IN DIVIDED DOSES. FACE TO FACE START TIME: 1120 FACE TO FACE END TIME: 1139 TOTAL FACE TO FACE TIME: 19 MINUTES. POST PROCEDURE NOTE I WILL SEE THE PATIENT IN A FOLLOW UP IN THE NEXT FEW WEEKS. WE ARE LOOKING FOR LONG LASTING PAIN RELIEF WITH THIS INTERVENTION. THERE WERE NO COMPLICATIONS. INSTRUCTIONS WERE GIVEN, QUESTIONS WERE ANSWERED, AND THE PATIENT REPORTS UNDERSTANDING AND AGREES. I, JANET LOPEZ, DOCUMENTED THE ABOVE INFORMATION ACTING A SCRIBE FOR DR. HERNANDEZ. I HAVE REVIEWED THE ABOVE DOCUMENT, WRITTEN BY JANET LOPEZ, NUT CRACKER, AND I VERIFY THAT IT IS ACCURATE. [id number]. PROCEDURE CODES 44399 N BLOCK INJ ILIO-ING/HYPOGI, [place]: [place] [id number] MOD SED SAME PHYS/QHP 5/>YRS DISPOSITION & COMMUNICATION FOLLOW UP FOLLOW UP WITH ROLLER MAKER (REASON: POST RIGHT GENITOFEMORAL NERVE BLOCK) ELECTRONICALLY SIGNED BY ANGELINA HERNANDEZ MD, MD ON 08/20/2020 AT 05:36 PM EDT DISCLAIMER : THIS IS A VISIT SUMMARY EXTRACTED FROM THE [employer] CHART. IT IS NOT A COPY OF THE [employer] PROGRESS NOTE. MARY
== END ==
LOC: M PAIN 09:00
PROVIDERS: ATTEND Anesthesiology
DX: G58.8 Other specified mononeuropathies (principal); G47.33 Obstructive sleep apnea (adult) (pediatric); J45.909 Unspecified asthma, uncomplicated; R25.1 Tremor, unspecified; F17.290 Nicotine dependence, other tobacco product, uncomplicated; Z86.59 Personal history of other mental and behavioral disorders; Z79.899 Other long term (current) drug therapy
CPT/HCPCS: 64425; 99152; J1200; J2250; J2405; J3010; J3301

== ENCOUNTER → 2020-09-03 | Outpatient (CLI) | payer MEDICARE ==
[~2020-09-03] MED LIST changes: -BUPIVACAINE HCL 0.25% 30ML VIAL As Ordered ONE; -LIDOCAINE 1% SDV 30ML VIAL As Ordered ONE; -MIDAZOLAM INJ 2MG/2ML VIAL (J2250 PER 1MG) As Ordered ONE; -ONDANSETRON 4MG/2ML VIAL As Ordered ONE; -TRIAMCINOLONE ACETONIDE SUSP 40 MG/ML VIAL (J3301) As Ordered ONE; -diphenhydrAMINE 50MG/ML VIAL (J1200) As Ordered ONE; -fentaNYL 100 MCG/2 ML INJECTION (J3010) As Ordered ONE
--- NOTE | 2020-09-09 01:34 | ECWPNPC ---
PATIENT NAME: OBED ARO : 1980 GENDER: MALE VISIT DATE: 09/03/2020 DISCHARGE DATE: 09/03/20 1451 VISIT LOCKED DATE TIME: PHYSICIAN: BROCK QUIGLEY PHYSICIAN PAGER NO: INACTIVE RESOURCE: BROCK QUIGLEY REASON FOR APPOINTMENT 1. POST RIGHT GENITOFEMORAL NERVE BLOCK HISTORY OF PRESENT ILLNESS DEPRESSION SCREENING: PHQ-2 (2015 EDITION) LITTLE INTEREST OR PLEASURE IN DOING THINGS?NOT AT ALL FEELING DOWN, DEPRESSED, OR HOPELESS?NOT AT ALL TOTAL SCORE0 GENERAL: HERE FOR POST PROCEDURE FOLLOW-UP. HAD RIGHT GENITOFEMORAL NERVE BLOCK ON 08/20/2020. REPORTS MARKED REDUCTION IN PAIN THAT CONTINUES TODAY. CHIEF AREA OF PAIN IS LOW BACK. REVIEWED MRI OF THE LS-SPINE. DISCUSSED TREATMENT OPTIONS. HAS RESPONDED WELL TO LUMBAR EPIDURAL STEROID INJECTION IN THE PAST. -. FALL RISK SCREENING: SCREENING : NO FALLS REPORTED IN THE LAST YEAR. PAIN SCREENING: PATIENT HAS A COMPLAINT OF ACUTE OR CHRONIC PAIN :YES LOCATION OF PAIN:LOW BACK PAIN IN THE GROIN IS A 1 TODAY PT STATES THE BACK IS A 9 INTENSITY OF PAIN (SCALE OF 1 TO 10): PAIN IN THE GROIN THE PT STATES IS A 1PT STATES HIS PAIN IN THE BACK IS A 9 WHAT DOES YOUR PAIN FEEL LIKE:CONTINOUS, BURNING, ACHING NURSING NOTE: -. PAIN CENTER INTAKE QUESTIONS: DO YOU HAVE A HISTORY OF MRSA? :NO DO YOU TAKE A BLOOD THINNERS? :NO DO YOU HAVE ANY BLEEDING DISORDERS? :NO ANY NEW NUMBNESS OR WEAKNESS IN YOUR LEGS OR ARMS? :NO ANY PACEMAKER,DEFIBRILLATOR, OR DORSAL COLUMN STIMULATOR? :NO DO YOU HAVE ANY RASHES OR OPEN SORES? :NO ARE YOU ALLERGIC TO IV DYE? :NO ARE YOU DIABETIC? :NO ANY NEW PROBLEMS WITH YOUR MEDICATIONS? :NO HAVE YOU RECEIVED A VACCINE IN THE PAST 30 DAYS? :NO DO YOU PLAN TO RECEIVE A VACCINE IN THE NEXT 21 DAYS? :NO DO YOU NEED ANY PRESCRIPTION? :NO DO YOU TAKE ANY IMMUNOSUPPRESSIVE MEDICATIONS? :NO DO YOU HAVE ANY KIDNEY OR LIVER DISEASE? :NO IS THERE A CHANCE YOU COULD BE ? :NO ARE YOU BREAST FEEDING? :NO CURRENT MEDICATIONS TAKING PROPRANOLOL HCL 20 MG TABLET 1 TABLET ORALLY TWICE A DAY TAKING PRIMIDONE 50 MG TABLET 1 ORALLY PO BID TAKING DEPAKOTE ER 500 MG TABLET EXTENDED RELEASE 24 HOUR 1 TABLET ORALLY THREE TIMES DAILY TAKING VITAMIN C 500 MG TABLET CHEWABLE 1 TABLET ORALLY ONCE A DAY- OTC TAKING EXCEDRIN TENSION HEADACHE 500-65 MG TABLET 2 TABLETS NEEDED ORALLY THREE TIMES A DAY TAKING OMEPRAZOLE 40 MG CAPSULE DELAYED RELEASE 1 CAPSULE ORALLY BID TAKING SIMVASTATIN 40 MG TABLET 1 TABLET IN THE EVENING ORALLY ONCE A DAY TAKING FLONASE ALLERGY RELIEF 50 MCG/ACT SUSPENSION 1 SPRAY IN EACH NOSTRIL NASALLY ONCE A DAY TAKING MONTELUKAST SODIUM 10 MG TABLET 1 TABLET ORALLY ONCE A DAY TAKING AYR SALINE NASAL NETI RINSE 1.57 GM PACKET DIRECTED NASALLY DAILY TAKING ALBUTEROL SULFATE HFA 108 (90 BASE) MCG/ACT AEROSOL SOLUTION 2 PUFFS NEEDED INHALATION EVERY 6 HRS TAKING VITAMIN D 50 MCG (2000 UT) CAPSULE 1 CAPSULE ORALLY ONCE A DAY TAKING AYANNA ALLERGY 180 MG TABLET 1 TABLET ORALLY ONCE A DAY TAKING NICORETTE 4 MG GUM 1 PIECE FOR 30 MINUTE NEEDED MOUTH/THROAT 24 TIME(S) A DAY TAKING RELPAX 20 MG TABLET 1 TABLET ORALLY ONCE A DAY PRN TAKING AIMOVIG 140 MG/ML SOLUTION AUTO-INJECTOR DIRECTED SUBCUTANEOUS ONCE A MONTH TAKING GUANFACINE HCL 1 MG TABLET 1 TAB ORALLY ONCE A DAY TAKING GABAPENTIN 100 MG CAPSULE 2 CAP ORALLY FOR PAIN TID, NOTES: 08/19/20 TAKING HYDROCODONE-ACETAMINOPHEN 7.5-325 MG TABLET 1 TABLET NEEDED ORALLY EVERY 4 HRS MDD: 6, NOTES: 08/19/20 NOT-TAKING KETOROLAC TROMETHAMINE 10 MG TABLET 1 TABLET WITH FOOD OR MILK NEEDED ORALLY EVERY 6 HRS NOT-TAKING KETOROLAC TROMETHAMINE 10 MG TABLET 1 TABLET WITH FOOD OR MILK NEEDED ORALLY EVERY 6 HRS NOT-TAKING BOTOX 100 UNIT SOLUTION RECONSTITUTED DIRECTED INJECTION EVERY MONTH NOT-TAKING NICOTROL 10 MG INHALER 1 CARTRIDGE NEEDED INHALATION 16 TIME(S) A DAY NOT-TAKING AMOXICILLIN 500 MG CAPSULE 1 CAPSULE ORALLY EVERY 12 HRS NOT-TAKING CYMBALTA 60 MG CAPSULE DELAYED RELEASE PARTICLES 1 CAPSULE ORALLY FOR PAIN DAILY NOT-TAKING HIBICLENS 4 % LIQUID DIRECTED EXTERNALLY DAILY AT PELVIC AREA NOT-TAKING CETIRIZINE HCL 10 MG TABLET 1 TABLET ORALLY ONCE A DAY NOT-TAKING ZOLMITRIPTAN 5 MG TABLET 1 TABLET NEEDED ONE TIME ORALLY ONCE A DAY NOT-TAKING SUCRALFATE 1 GM TABLET ORAL DIRECTED NOT-TAKING PERCOCET 10-325 MG TABLET 1 TABLET NEEDED ORALLY EVERY 6 HRS, NOTES: FOR SINUS SURGERY NOT-TAKING KEFLEX 500 MG CAPSULE 1 CAPSULE ORALLY EVERY 12 HRS MEDICATION LIST REVIEWED AND RECONCILED WITH THE PATIENT PAST MEDICAL HISTORY HIGH CHOLESTEROL BIPOLAR ADHD ALLERGIES ASTHMA SLEEP 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 COLONOSCOPY 03/2018: MILD NONSPECIFIC CHRONIC INFLAMMATION NOTED ON BIOPSY, NO ACTIVE COLITIS, DYSPLASIA OR GRANULOMA IDENTIFIED EGD 03/2018: MILD CHRONIC GASTRITIS NOTED ON BIOPSY, NO H-PYLORI RIANNA: MANAGED BY NEUROLOGY SCROTAL PAIN ED- FOLLOWING WITH UROLOGY CARTGE 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 INFECTION ALLERGIES SEASONAL ALLERGIES: SNEEZING, COUGHING - ALLERGY SURGICAL HISTORY PERIANAL ABCESS X2 - MIHIR, DR DEMARCO SCHAFER 10/2015 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 (?REACTION TO DYE) 12/2015 R SHOULDER ROTATOR CUFF, SOS 2017 ALL UPPER TEETH EXT, TAI DENTAL, 2018 VASECTOMY- [facility]/UROLOGY, WITH SEVERE SCAR TISSUE 2018 ENDOSCOPY UPPER AND LOWER, WITH BX-SMC, ADDITIONAL TESTING 03/2018 SINUS SURGERY- POLYP HOSPITALIZATION/MAJOR DIAGNOSTIC PROCEDURE SURIGCAL RELATED [facility] CELLULITIS RIGHT GROIN WITH ABSCESS 10/06-10/09/17 REVIEW OF SYSTEMS CONSTITUTIONAL: ANY RECENT FEVER NO . CHILLS NO . WEIGHT CHANGE OF UNKNOWN REASONS NO . GASTROENTEROLOGY: NEW UNEXPLAINABLE CHANGES IN BOWEL CONTROL NO . CONSTIPATION NO . GENITOURINARY: ANY NEW CHANGE IN BLADDER CONTROL? NO . NEUROLOGY: NEW ONSET DIZZINESS OR NEUROLOGICAL CHANGES NOT MENTIONED NO . NEW NUMBNESS OR PAIN PATTERNS NOT MENTIONED AND PERTINENT TO TODAY'S VISIT NO . CARDIOLOGY: NEW CHEST PRESSURE NO . PATIENT DENIES NO . RESPIRATORY: UNEXPLAINABLE COUGH NO . NEW SHORTNESS OF BREATH NO . VITAL SIGNS WT 201.8 LBS, HT 65 IN, BMI 33.58 INDEX, BP 124/78 MM HG, HR 75 /MIN, RR 18 /MIN, TEMP 98.2 F, OXYGEN SAT % 97, SAFE IN ENV? (Y/N) Y, REVIEWED BY: SHAJI. EXAMINATION GENERAL EXAMINATION: GENERAL AWAKE,ALERT ,PLEASANT . PSYCH AFFECT NORMAL . LUNGS: LUNG FLOYD ARE CLEAR TO AUSCULTATION BILATERALLY. GOOD MOVEMENT OF AIR . HEART: S1, S2 IN A REGULAR RATE AND RHYTHM. NO SIGNIFICANT MURMURS, RUBS OR GALLOPS NOTED . LUMBAR: PALPATION: + FOR PAIN OVER L/S SPINE. + FOR PAIN OVER L/S PARASPINALS . DIAGNOSTIC TESTS REVIEWED MRI L/S SPINE-01/2020. 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 OTHER CHRONIC PAIN PAIN PROCEDURE LOGDATE OF PROCEDURE1PROCEDURE:RIGHT GENITOFEMORAL NERVE BLOCKAMOUNT OF PRE SEDATEVERSED 1MG, FENTANYL 25 MCG, BENADRYL 25MGRESULT:MARKED REDUCTION IN PAIN CONTINUES TODAY PROCEDURE CODES FA211 ESTABILISHED PATIENT [facility] FACILITY CHARGE DISPOSITION & COMMUNICATION FOLLOW UP DR. Candis JOY (REASON: LUMBAR EPIDURAL STERIOD INJECTION WITH IV SEDATION) ELECTRONICALLY SIGNED BY FAM CERRATO ON 09/08/2020 AT 08:35 AM EDT DISCLAIMER : THIS IS A VISIT SUMMARY EXTRACTED FROM THE [employer] CHART. IT IS NOT A COPY OF THE [employer] PROGRESS NOTE. SHARLAD
== END ==
LOC: M PAIN 13:45
PROVIDERS: ATTEND Nurse Practitioner Family
DX: M51.26 Other intervertebral disc displacement, lumbar region (principal); G89.29 Other chronic pain; G58.8 Other specified mononeuropathies; J45.909 Unspecified asthma, uncomplicated; G47.33 Obstructive sleep apnea (adult) (pediatric); R25.1 Tremor, unspecified; Z86.59 Personal history of other mental and behavioral disorders; Z79.899 Other long term (current) drug therapy

== ENCOUNTER → 2020-10-01 | Outpatient (CLI) | payer MEDICARE ==
[~2020-10-01] MED LIST changes: +AMOX500C PO; +AZIT-12 PO; +OMEP40CA4 PO; -OMEP40CA97 PO
== END ==
LOC: M LABSMTC 13:18
PROVIDERS: ATTEND Anesthesiology
DX: Z20.822 Contact with and (suspected) exposure to COVID-19 (principal)

== ENCOUNTER → 2020-10-02 | Outpatient (CLI) | payer MEDICARE ==
[~2020-10-02] MED LIST changes: -AMOX500C PO; -AZIT-12 PO
--- NOTE | 2020-10-09 03:31 | ECWPNPC ---
PATIENT NAME: OBED RAO : 1980 GENDER: MALE VISIT DATE: 10/02/2020 DISCHARGE DATE: 10/02/20 1456 VISIT LOCKED DATE TIME: PHYSICIAN: ANGELINA HERNANDEZ MD PHYSICIAN PAGER NO: INACTIVE RESOURCE: ANGELINA HERNANDEZ MD REASON FOR APPOINTMENT 1. PRESEDATE LUMBAR EPIDURAL STERIOD INJECTION HISTORY OF PRESENT ILLNESS GENERAL: 40-YEAR-OLD MALE PATIENT WITH A HISTORY OF CHRONIC LOW BACK AND BILATERAL LEG PAIN. THE PATIENT DESCRIBES THE PAIN ACHING, CONTINUOUS AND THROBBING WITH A PAIN SCORE RANGING FROM 8-10/10. HE HAS BEEN SUFFERING FROM THIS CONDITION FOR A LONG TIME. THIS IS AFFECTING HIS ABILITY TO PERFORM ACTIVITIES SUCH CLEANING HIS HOUSE AND GROCERY SHOPPING. FALL RISK SCREENING: SCREENING : NO FALLS REPORTED IN THE LAST YEAR. PAIN SCREENING: PATIENT HAS A COMPLAINT OF ACUTE OR CHRONIC PAIN :YES INTENSITY OF PAIN (SCALE OF 1 TO 10):10 WHAT DOES YOUR PAIN FEEL LIKE:ACHING, CONTINOUS, THROBBING PAIN IS INCREASED BY:OTHERS PROLONGED SITTING NURSING NOTE: -. PAIN CENTER INTAKE QUESTIONS: DO YOU HAVE A HISTORY OF MRSA? :NO DO YOU TAKE A BLOOD THINNERS? :NO DO YOU HAVE ANY BLEEDING DISORDERS? :NO ANY NEW NUMBNESS OR WEAKNESS IN YOUR LEGS OR ARMS? :NO ANY PACEMAKER,DEFIBRILLATOR, OR DORSAL COLUMN STIMULATOR? :NO DO YOU HAVE ANY RASHES OR OPEN SORES? :NO ARE YOU ALLERGIC TO IV DYE? :NO ARE YOU DIABETIC? :NO ANY NEW PROBLEMS WITH YOUR MEDICATIONS? :NO HAVE YOU RECEIVED A VACCINE IN THE PAST 30 DAYS? :NO DO YOU PLAN TO RECEIVE A VACCINE IN THE NEXT 21 DAYS? :NO DO YOU NEED ANY PRESCRIPTION? :NO DO YOU TAKE ANY IMMUNOSUPPRESSIVE MEDICATIONS? :NO DO YOU HAVE ANY KIDNEY OR LIVER DISEASE? :NO IS THERE A CHANCE YOU COULD BE ? :NO ARE YOU BREAST FEEDING? :NO CURRENT MEDICATIONS TAKING PROPRANOLOL HCL 20 MG TABLET 1 TABLET ORALLY TWICE A DAY TAKING PRIMIDONE 50 MG TABLET 1 ORALLY PO BID TAKING DEPAKOTE ER 500 MG TABLET EXTENDED RELEASE 24 HOUR 1 TABLET ORALLY THREE TIMES DAILY TAKING VITAMIN C 500 MG TABLET CHEWABLE 1 TABLET ORALLY ONCE A DAY- OTC TAKING EXCEDRIN TENSION HEADACHE 500-65 MG TABLET 2 TABLETS NEEDED ORALLY THREE TIMES A DAY TAKING OMEPRAZOLE 40 MG CAPSULE DELAYED RELEASE 1 CAPSULE ORALLY BID TAKING SIMVASTATIN 40 MG TABLET 1 TABLET IN THE EVENING ORALLY ONCE A DAY TAKING FLONASE ALLERGY RELIEF 50 MCG/ACT SUSPENSION 1 SPRAY IN EACH NOSTRIL NASALLY ONCE A DAY TAKING MONTELUKAST SODIUM 10 MG TABLET 1 TABLET ORALLY ONCE A DAY TAKING AYR SALINE NASAL NETI RINSE 1.57 GM PACKET DIRECTED NASALLY DAILY TAKING ALBUTEROL SULFATE HFA 108 (90 BASE) MCG/ACT AEROSOL SOLUTION 2 PUFFS NEEDED INHALATION EVERY 6 HRS TAKING VITAMIN D 50 MCG (2000 UT) CAPSULE 1 CAPSULE ORALLY ONCE A DAY TAKING AYANNA ALLERGY 180 MG TABLET 1 TABLET ORALLY ONCE A DAY TAKING NICORETTE 4 MG GUM 1 PIECE FOR 30 MINUTE NEEDED MOUTH/THROAT 24 TIME(S) A DAY TAKING RELPAX 20 MG TABLET 1 TABLET ORALLY ONCE A DAY PRN TAKING AIMOVIG 140 MG/ML SOLUTION AUTO-INJECTOR DIRECTED SUBCUTANEOUS ONCE A MONTH TAKING GUANFACINE HCL 2 MG TABLET 1 TAB ORALLY ONCE A DAY TAKING GABAPENTIN 100 MG CAPSULE 2 CAP ORALLY FOR PAIN TID, NOTES: 08/19/20 TAKING HYDROCODONE-ACETAMINOPHEN 7.5-325 MG TABLET 1 TABLET NEEDED ORALLY EVERY 4 HRS MDD: 6, NOTES: 08/19/20 NOT-TAKING KETOROLAC TROMETHAMINE 10 MG TABLET 1 TABLET WITH FOOD OR MILK NEEDED ORALLY EVERY 6 HRS NOT-TAKING KETOROLAC TROMETHAMINE 10 MG TABLET 1 TABLET WITH FOOD OR MILK NEEDED ORALLY EVERY 6 HRS NOT-TAKING BOTOX 100 UNIT SOLUTION RECONSTITUTED DIRECTED INJECTION EVERY MONTH NOT-TAKING NICOTROL 10 MG INHALER 1 CARTRIDGE NEEDED INHALATION 16 TIME(S) A DAY NOT-TAKING AMOXICILLIN 500 MG CAPSULE 1 CAPSULE ORALLY EVERY 12 HRS NOT-TAKING CYMBALTA 60 MG CAPSULE DELAYED RELEASE PARTICLES 1 CAPSULE ORALLY FOR PAIN DAILY NOT-TAKING HIBICLENS 4 % LIQUID DIRECTED EXTERNALLY DAILY AT PELVIC AREA NOT-TAKING CETIRIZINE HCL 10 MG TABLET 1 TABLET ORALLY ONCE A DAY NOT-TAKING ZOLMITRIPTAN 5 MG TABLET 1 TABLET NEEDED ONE TIME ORALLY ONCE A DAY NOT-TAKING SUCRALFATE 1 GM TABLET ORAL DIRECTED NOT-TAKING PERCOCET 10-325 MG TABLET 1 TABLET NEEDED ORALLY EVERY 6 HRS, NOTES: FOR SINUS SURGERY NOT-TAKING KEFLEX 500 MG CAPSULE 1 CAPSULE ORALLY EVERY 12 HRS MEDICATION LIST REVIEWED AND RECONCILED WITH THE PATIENT PAST MEDICAL HISTORY HIGH CHOLESTEROL BIPOLAR ADHD ALLERGIES ASTHMA SLEEP 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 COLONOSCOPY 03/2018: MILD NONSPECIFIC CHRONIC INFLAMMATION NOTED ON BIOPSY, NO ACTIVE COLITIS, DYSPLASIA OR GRANULOMA IDENTIFIED EGD 03/2018: MILD CHRONIC GASTRITIS NOTED ON BIOPSY, NO H-PYLORI RIANNA: MANAGED BY NEUROLOGY SCROTAL PAIN ED- FOLLOWING WITH UROLOGY [facility] 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 INFECTION ALLERGIES SEASONAL ALLERGIES: SNEEZING, COUGHING - ALLERGY SURGICAL HISTORY PERIANAL ABCESS X2 - MIHIR, DR DEMARCO SCHAFER 10/2015 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 - MIHIR, (?REACTION TO DYE) 12/2015 R SHOULDER ROTATOR CUFF, SOS 2017 ALL UPPER TEETH EXT, TAI DENTAL, 2018 VASECTOMY- [facility]/UROLOGY, WITH SEVERE SCAR TISSUE 2017 ENDOSCOPY UPPER AND LOWER, WITH BX-SMC, ADDITIONAL TESTING 03/2018 SINUS SURGERY- POLYP FAMILY HISTORY FATHER: 80 YRS, DIAGNOSED WITH OTHER MALIGNANT NEOPLASM OF UNSPECIFIED SITE MOTHER: ALIVE 54 YRS, HYPERTENSION SIBLINGS: UNKNOWN SON(S): ALIVE DAUGHTER(S): ALIVE 1 YRS PATERNAL GRAND FATHER: UNKNOWN PATERNAL GRAND MOTHER: UNKNOWN MATERNAL GRAND FATHER: 65 YRS, HYPERTENSION, UNSPECIFIED HEART DISEASE, DIABETES MATERNAL GRAND MOTHER: 68 YRS, HYPERTENSION, UNSPECIFIED HEART DISEASE 1 SON(S) , 1 DAUGHTER(S) - HEALTHY. - HTN, HIGH CHOLESTEROL, ALLERGIES, ASTHMA, 1YR DAUGHTER, 1MONTH OLD SON- NO KNOWN RAGHAVENDRA ISSUES, MATERNAL GRANDPARENTS- GRANDMOTHER 65, DM, HEART, CHOLESTEROL, HTN, PARKINSONS,GRANDFATHER- 68 HEART DISEASE, HTN, NADIA CHOLESTEROL, COUGH-THROAT CLOSING-ISSUES. HOSPITALIZATION/MAJOR DIAGNOSTIC PROCEDURE SURIGCAL RELATED SMC CELLULITIS RIGHT GROIN WITH ABSCESS 10/06-10/09/17 REVIEW OF SYSTEMS GLAUCOMA: NOTHYROID DISEASE: NOHYPERTENSION: NOHEART DISEASE: NOLUNG DISEASE: NODIABETES: NOGI DISEASE: NO LIVER DISEASE: NO KIDNEY DISEASE: NOSTERIOD USE: NONEUROLOGICAL DISEASE: NOBACK PROBLEMS: YES, PAINEXTREMITIES: YES, PAINGENITOURINARY: NOBLEEDING DISORDER: NOASA CLASS: [id number] CLASS: II. VITAL SIGNS WT 205.6 LBS, HT 65 IN, BMI 34.21 INDEX, BP 141/87 MM HG, HR 62 /MIN, RR 18 /MIN, TEMP 97.5 F, OXYGEN SAT % 97%, NA INITIALS SC 14:22. EXAMINATION GENERAL EXAMINATION: THE PATIENT IS ALERT, ORIENTED TIMES THREE AND COOPERATIVE. LUNGS ARE CLEAR TO AUSCULTATION. HEART SHOWS REGULAR RHYTHM, NO MURMURS AND NO GALLOPS. TENDERNESS IN THE LOWER BACK IN THE PARASPINAL MUSCLE GROUP. THE LEFT LEG IS WEAKER THAN THE RIGHT LEG ON FLEXION AND EXTENSION. STRAIGHT LEG RAISE IS POSITIVE FOR RADICULOPATHY ON THE LEFT AT 80 DEGREES. MRI OF THE LUMBAR SPINE DATED 01/28/2020 SHOWS A BULGING DISC AT L3-L4, THERE IS A DISC HERNIATION AT L4-L5. ASSESSMENTS INTERVERTEBRAL DISC DISORDERS WITH RADICULOPATHY, LUMBAR REGION - M51.16 (PRIMARY) TREATMENT INTERVERTEBRAL DISC DISORDERS WITH RADICULOPATHY, LUMBAR REGION MEDICATION: PAIN FENTANYL CITRATE 25MCG IV (ORDERED FOR 11/02/2020)SANTHOSH DOZIER 10/06/2020 1:45:37 PM > VERIFIED JANET LOPEZ 10/06/2020 2:01:32 PM > SECOND DOSE ORDERED, VERIFIED BY EZRA HANSON 10/06/2020 2:17:24 PM > 25 MCG GIVEN @ 1357 EZRA ANGELES 10/06/2020 2:17:53 PM > 2ND DOSE GIVEN @ 1358 FOR A TOTAL OF 50 MCG OF FENTANYL GIVEN MED: PAIN VERSED 1MG IV MIDAZOLAM (ORDERED FOR 11/02/2020)SANTHOSH DOZIER 10/06/2020 1:45:56 PM > VERIFIED EZRA ANGELES 10/06/2020 2:15:27 PM > 1 MG GIVEN @1356 OXYGEN AT 2 LITERS PER NASAL CANNULA (ORDERED FOR 11/02/2020)SANTHOSH DOZIER R 10/06/2020 1:46:13 PM > 02 ON @ 1330 SANTHOSH DOZIER R 10/06/2020 2:17:29 PM > 02 OFF AT 1410 IV LACTATED RINGER'S AT KVO (ORDERED FOR 11/02/2020)MAYE CESAR 10/06/2020 12:41:52 PM > #20 IV STARTED X 1 ATTEMPT BY THIS ELECTRIC DOLLY OPERATOR IN RIGHT HAND. SITE ASYMPTOMATIC. LR INFUSING AT KVO PER ORDER WITHOUT DIFFICULTY. PATIENT TOLERATED WELL. TASIA,SANTHOSH R 10/06/2020 2:06:21 PM > 500 ML INFUSED TOTAL PETRAS,SANTHOSH R 10/06/2020 2:37:39 PM > IV SITE DISCONTNUED, CATHETER TIP INTACT, DSD APPLIED. MEDICATION: PAIN ZOFRAN 4MG/2ML IV ONDANSETRON (ORDERED FOR 11/02/2020)TASIASANTHOSH R 10/06/2020 12:46:32 PM > VERIFIED MAYE CESAR 10/06/2020 12:53:39 PM > ADMINISTERED MED: PAIN BENADRYL 25MG IV DIPHENHYDRAMINE (ORDERED FOR 11/02/2020)TASIA,SANTHOSH R 10/06/2020 12:46:43 PM > VERIFIED MAYE CESAR 10/06/2020 12:53:20 PM > ADMINISTERED CLINICAL NOTES: I DISCUSSED ALTERNATIVES WITH MR. RAO. WE AGREE ON DOING AN EPIDURAL THAT I PLAN ON DOING AT L4-L5 WITH IV SEDATION DUE TO ANXIETY AND DISCOMFORT ASSOCIATED WITH THE PROCEDURE. THE PATIENT REPORTS UNDERSTANDING AND AGREES. I, JANET LOPEZ, DOCUMENTED THE ABOVE INFORMATION ACTING A SCRIBE FOR DR. HERNANDEZ. I HAVE REVIEWED THE ABOVE DOCUMENT, WRITTEN BY JANET LOPEZ, SHIPYARD HELPER, AND I VERIFY THAT IT IS ACCURATE. PROCEDURE CODES FA211 ESTABILISHED PATIENT [facility] CHARGE [id number] OFFICE/OUTPATIENT VISIT EST DISPOSITION & COMMUNICATION FOLLOW UP OKAY TO BOOK (REASON: LUMBAR EPIDURAL STEROID INJECTION WITH IV SEDATION) ELECTRONICALLY SIGNED BY ANGELINA HERNANDEZ MD, MD ON 10/08/2020 AT 02:11 PM EDT DISCLAIMER : THIS IS A VISIT SUMMARY EXTRACTED FROM THE [employer] CHART. IT IS NOT A COPY OF THE [employer] PROGRESS NOTE. MTDD
== END ==
LOC: M PAIN 14:30
PROVIDERS: ATTEND Anesthesiology
DX: M51.16 Intervertebral disc disorders with radiculopathy, lumbar region (principal); G89.29 Other chronic pain; J45.909 Unspecified asthma, uncomplicated; G47.33 Obstructive sleep apnea (adult) (pediatric); R25.1 Tremor, unspecified; Z86.59 Personal history of other mental and behavioral disorders; Z79.899 Other long term (current) drug therapy

== ENCOUNTER → 2020-10-06 | Outpatient (CLI) | payer MEDICARE ==
[~2020-10-06] MED LIST changes: +ISOVUE-M 300 61% 15ML VIAL As Ordered ONE; +LIDOCAINE 1% SDV 30ML VIAL As Ordered ONE; +MIDAZOLAM INJ 2MG/2ML VIAL (J2250 PER 1MG) As Ordered ONE; +ONDANSETRON 4MG/2ML VIAL As Ordered ONE; +diphenhydrAMINE 50MG/ML VIAL (J1200) As Ordered ONE; +fentaNYL 100 MCG/2 ML INJECTION (J3010) As Ordered ONE; +methylPREDNISolone SUSP 40MG/ML 1ML VIAL (DEPO MEDROL) As Ordered ONE
--- NOTE | 2020-10-06 14:58 | REP ---
INDICATION: LUMBAR EPIDURAL STEROID INJECTION. COMPARISON: None. TECHNIQUE: Two views. Five point seconds of fluoroscopy time is reported. FINDINGS: 9 a sequence of 2 last image hold fluoroscopically obtained spot radiograph(s) of the lumbar spine document(s) needle position(s) and contrast injection associated with injection procedure. IMPRESSION: Procedural imaging. <Electronically signed by Jayme Chinchilla > 10/06/20 [id number]
--- NOTE | 2020-10-10 05:48 | ECWPNPC ---
PATIENT NAME: OBED RAO : 1980 GENDER: MALE VISIT DATE: 10/06/2020 DISCHARGE DATE: 10/06/20 1428 VISIT LOCKED DATE TIME: PHYSICIAN: ANGELINA HERNANDEZ MD PHYSICIAN PAGER NO: INACTIVE RESOURCE: ANGELINA HERNANDEZ MD REASON FOR APPOINTMENT 1. LUMBAR EPIDURAL STERIOD INJECTION WITH IV SEDATION HISTORY OF PRESENT ILLNESS FALL RISK SCREENING: SCREENING : NO FALLS REPORTED IN THE LAST YEAR. PAIN SCREENING: PATIENT HAS A COMPLAINT OF ACUTE OR CHRONIC PAIN :YES LOCATION OF PAIN:LOW BACK, LEG(S) RADIATES DOWN BLE INTENSITY OF PAIN (SCALE OF 1 TO 10):10 WHAT DOES YOUR PAIN FEEL LIKE:ACHING, BURNING, CONTINOUS, THROBBING, SHOOTING DURATION:CONTINOUS, AWAKENS FROM SLEEP PAIN IS INCREASED BY:ACTIVITIES, PROLONGED STANDING, OTHERS PROLONGED SITTING PAIN IS DECREASED BY:USE OF PAIN MEDICATIONS PLAN/GOALS/TREATMENT/INTERVENTION/FOLLOW UP:SEE PLAN NURSING NOTE: -. PAIN CENTER INTAKE QUESTIONS: DO YOU HAVE A HISTORY OF MRSA? :NO DO YOU TAKE A BLOOD THINNERS? :NO DO YOU HAVE ANY BLEEDING DISORDERS? :NO ANY NEW NUMBNESS OR WEAKNESS IN YOUR LEGS OR ARMS? :NO ANY PACEMAKER,DEFIBRILLATOR, OR DORSAL COLUMN STIMULATOR? :NO DO YOU HAVE ANY RASHES OR OPEN SORES? :NO ARE YOU ALLERGIC TO IV DYE? :NO ARE YOU DIABETIC? :NO ANY NEW PROBLEMS WITH YOUR MEDICATIONS? :NO HAVE YOU RECEIVED A VACCINE IN THE PAST 30 DAYS? :NO DO YOU PLAN TO RECEIVE A VACCINE IN THE NEXT 21 DAYS? :NO DO YOU TAKE ANY IMMUNOSUPPRESSIVE MEDICATIONS? :NO ANY HISTORY OF SEIZURES? :NO ANY HISTORY OF CARDIAC ISSUES OR EVENTS? :NO DO YOU HAVE ANY KIDNEY OR LIVER DISEASE? :NO DO YOU HAVE SLEEP APNEA? :YES DO YOU WEAR A CPAP?YES AUTOPAP ANY RECENT HEAD INJURY? :NO DO YOU HAVE ANY NEW INFECTIONS? :NO IS THERE A CHANCE YOU COULD BE ? :NO ARE YOU BREAST FEEDING? :NO WHEN DID YOU LAST EAT? : 10/05/20201929 WHEN DID YOU LAST DRINK? : 10/05/20202129 WHAT DID YOU LAST DRINK? : WATER NAME OF PERSON DRIVING YOU HOME? : MOM DO YOU HAVE ANY OTHER QUESTIONS OR CONCERNS? : NO CURRENT MEDICATIONS TAKING PROPRANOLOL HCL 20 MG TABLET 1 TABLET ORALLY TWICE A DAY TAKING PRIMIDONE 50 MG TABLET 1 ORALLY PO BID TAKING DEPAKOTE ER 500 MG TABLET EXTENDED RELEASE 24 HOUR 1 TABLET ORALLY THREE TIMES DAILY TAKING VITAMIN C 500 MG TABLET CHEWABLE 1 TABLET ORALLY ONCE A DAY- OTC TAKING EXCEDRIN TENSION HEADACHE 500-65 MG TABLET 2 TABLETS NEEDED ORALLY THREE TIMES A DAY TAKING OMEPRAZOLE 40 MG CAPSULE DELAYED RELEASE 1 CAPSULE ORALLY BID TAKING SIMVASTATIN 40 MG TABLET 1 TABLET IN THE EVENING ORALLY ONCE A DAY TAKING FLONASE ALLERGY RELIEF 50 MCG/ACT SUSPENSION 1 SPRAY IN EACH NOSTRIL NASALLY ONCE A DAY TAKING MONTELUKAST SODIUM 10 MG TABLET 1 TABLET ORALLY ONCE A DAY TAKING AYR SALINE NASAL NETI RINSE 1.57 GM PACKET DIRECTED NASALLY DAILY TAKING ALBUTEROL SULFATE HFA 108 (90 BASE) MCG/ACT AEROSOL SOLUTION 2 PUFFS NEEDED INHALATION EVERY 6 HRS TAKING VITAMIN D 50 MCG (2000 UT) CAPSULE 1 CAPSULE ORALLY ONCE A DAY TAKING AYANNA ALLERGY 180 MG TABLET 1 TABLET ORALLY ONCE A DAY TAKING NICORETTE 4 MG GUM 1 PIECE FOR 30 MINUTE NEEDED MOUTH/THROAT 24 TIME(S) A DAY TAKING RELPAX 20 MG TABLET 1 TABLET ORALLY ONCE A DAY PRN TAKING AIMOVIG 140 MG/ML SOLUTION AUTO-INJECTOR DIRECTED SUBCUTANEOUS ONCE A MONTH TAKING GUANFACINE HCL 2 MG TABLET 1 TAB ORALLY ONCE A DAY TAKING GABAPENTIN 100 MG CAPSULE 2 CAP ORALLY FOR PAIN TID TAKING HYDROCODONE-ACETAMINOPHEN 7.5-325 MG TABLET 1 TABLET NEEDED ORALLY EVERY 4 HRS MDD: 6 NOT-TAKING KETOROLAC TROMETHAMINE 10 MG TABLET 1 TABLET WITH FOOD OR MILK NEEDED ORALLY EVERY 6 HRS NOT-TAKING KETOROLAC TROMETHAMINE 10 MG TABLET 1 TABLET WITH FOOD OR MILK NEEDED ORALLY EVERY 6 HRS NOT-TAKING BOTOX 100 UNIT SOLUTION RECONSTITUTED DIRECTED INJECTION EVERY MONTH NOT-TAKING NICOTROL 10 MG INHALER 1 CARTRIDGE NEEDED INHALATION 16 TIME(S) A DAY NOT-TAKING AMOXICILLIN 500 MG CAPSULE 1 CAPSULE ORALLY EVERY 12 HRS NOT-TAKING CYMBALTA 60 MG CAPSULE DELAYED RELEASE PARTICLES 1 CAPSULE ORALLY FOR PAIN DAILY NOT-TAKING HIBICLENS 4 % LIQUID DIRECTED EXTERNALLY DAILY AT PELVIC AREA NOT-TAKING CETIRIZINE HCL 10 MG TABLET 1 TABLET ORALLY ONCE A DAY NOT-TAKING ZOLMITRIPTAN 5 MG TABLET 1 TABLET NEEDED ONE TIME ORALLY ONCE A DAY NOT-TAKING SUCRALFATE 1 GM TABLET ORAL DIRECTED NOT-TAKING PERCOCET 10-325 MG TABLET 1 TABLET NEEDED ORALLY EVERY 6 HRS, NOTES: FOR SINUS SURGERY NOT-TAKING KEFLEX 500 MG CAPSULE 1 CAPSULE ORALLY EVERY 12 HRS MEDICATION LIST REVIEWED AND RECONCILED WITH THE PATIENT PAST MEDICAL HISTORY HIGH CHOLESTEROL BIPOLAR ADHD ALLERGIES ASTHMA SLEEP 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 COLONOSCOPY 03/2018: MILD NONSPECIFIC CHRONIC INFLAMMATION NOTED ON BIOPSY, NO ACTIVE COLITIS, DYSPLASIA OR GRANULOMA IDENTIFIED EGD 03/2018: MILD CHRONIC GASTRITIS NOTED ON BIOPSY, NO H-PYLORI RIANNA: MANAGED BY NEUROLOGY SCROTAL PAIN ED- FOLLOWING WITH UROLOGY CARTHAGE 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 INFECTION ALLERGIES SEASONAL ALLERGIES: SNEEZING, COUGHING - ALLERGY SOCIAL HISTORY GENERAL: TOBACCO USE ARE YOU A:FORMER SMOKER NICOTINE GUM HOW LONG HAS IT BEEN SINCE YOU LAST SMOKED?6-12 MONTHS SMOKING CESSATION INFORMATION GIVEN07/10/2020 VAPORNO E-CIGARETTENO LATEX QUESTIONNAIRE LATEX ALLERGY : HAVE YOU EVER DEVELOPED ANY TYPE OF REACTION AFTER HANDLING LATEX PRODUCTS SUCH RUBBER GLOVES, CONDOMS, DIAPHRAGMS, BALLOONS, SOCKS, OR UNDERWEAR?NO LATEX ALLERGY : HAVE YOU EVER DEVELOPED ANY TYPE OF REACTION DURING OR AFTER DENTAL APPOINTMENT, VAGINAL/RECTAL EXAMINATION, SURGICAL PROCEDURE, OR ANY OTHER EXPOSURE?NO LATEX RISK : HAVE YOU EVER HAD ANY DIFFICULTY BREATHING OR HIVES AFTER EATING OR HANDLING ANY FRUITS, OR VEGETABLES; SUCH KIWI, BANANAS, STONE FRUITS, OR CHESTNUTSNO LATEX RISK : DO YOU HAVE A PREVIOUS PERSONAL HISTORY OF MORE THAN NINE SURGERIES, SPINA BIFIDA, OR REPEATED CATHERIZATIONS? YES - PLEASE INDICATE : > 9 SURGERIES LATEX RISK : ARE YOU FREQUENTLY EXPOSED TO LATEX PRODUCTS IN YOUR OCCUPATION?NO DATE ASKED : 10/05/2020 ALCOHOL USE: NO. ALCOHOL SCREENING DID YOU HAVE A DRINK CONTAINING ALCOHOL IN THE PAST YEAR?YES HOW OFTEN DID YOU HAVE SIX OR MORE DRINKS ON ONE OCCASION IN THE PAST YEAR?NEVER (0 POINTS) HOW MANY DRINKS DID YOU HAVE ON A TYPICAL DAY WHEN YOU WERE DRINKING IN THE PAST YEAR?1 OR 2 (0 POINTS) HOW OFTEN DID YOU HAVE A DRINK CONTAINING ALCOHOL IN THE PAST YEAR?MONTHLY OR LESS (1 POINT) POINTS1 INTERPRETATIONNEGATIVE RECREATIONAL DRUG USE DRUG USE?NO CAFFEINE CAFFEINE USE?NO PEPSI 3 BOTTLES A DAY SEXUAL HX HAD SEX IN THE LAST 12 MONTHS (VAGINAL, ORAL, OR ANAL)?YES WITHWOMEN ONLY PREVENTION STRATEGIES DISCUSSED:OTHER USE PROTECTION?NO HAVE YOU EVER HAD AN STD?NO HIV / HEP-C SCREENING HIV TEST OFFERED TO PATIENT:YES DATE OFFERED:05/01/2017 TEST ACCEPTED:NO REASON:PATIENT DECLINED SCIENTOLOGIST [id number] QUAKER LANGUAGE LANGUAGES SPOKEN:AMHARIC EDUCATION LEVEL OF EDUCATION:HIGH SCHOOL LEARNING BARRIERS / SPECIAL NEEDS CHANGE FROM LAST VISIT?NO BARRIERS TO LEARNING?NO HEARING IMPAIRED?NO VISION IMPAIRED?YES COGNITIVELY IMPAIRED?NO :CORRECTIVE LENSES READINESS TO LEARN?YES LEARNING PREFERENCES?NO LEARNING CAPABILITIES PRESENT?YES ADHD-NO DIFFICULTY WITH LEARNING EMOTIONAL BARRIERS?NO SPECIAL DEVICES?NO LACING OPERATOR NEEDED?NO DOMESTIC VIOLENCE DO YOU FEEL SAFE IN YOUR ENVIRONMENT?YES OCCUPATION: UNEMPLOYED. DIET: REGULAR. EXERCISE: DAILY, WALKS. MARITAL STATUS: SINGLE. OTHERS AT HOME: CHILDREN. - HAS THE PATIENT BEEN EDUCATED REGARDING HIS/HER PLAN OF CARE?YES HAS THE PATIENT BEEN EDUCATED REGARDING PAIN, THE RISK FOR PAIN, THE IMPORTANCE OF EFFECTIVE PAIN MANAGEMENT, AND THE PAIN ASSESSMENT PROCESS?YES ADVANCE DIRECTIVE ADVANCE DIRECTIVE DISCUSSED WITH PATIENT:YES 04/08/20 PT DOES NOT HAVE HCP AND DECLINES INFO AND ASSISTANCE AT THIS TIME. VITAL SIGNS WT 205 LBS, HT 65 IN, BMI 34.11 INDEX, BP 119/86 MM HG, HR 58 /MIN, RR 18 /MIN, TEMP 97.7 F, OXYGEN SAT % 98%, SAFE IN ENV? (Y/N) YES, NA INITIALS NV 11:58, REVIEWED BY: Armando MONTIEL RN. EXAMINATION GENERAL EXAMINATION: A HISTORY AND PHYSICAL EXAM ON THE PATIENT WAS DONE ON 10/02/2020(DATE OF ORIGINAL ASSESSMENT) IN PREPARATION OF SURGERY/PROCEDURE. I HAVE NOW REASSESSED THIS PATIENT'S HEALTH STATUS AND PERFORMED AN UPDATED EXAM TODAY. ALL CHANGES IN THE PATIENT'S HISTORY, PHYSICAL EXAM, PRE-EXISTING CONDITONS, AND INDICATIONS/CONTRAINDICATIONS TO THE PLANNED PROCEDURE AND ANESTHESIA ARE DOCUMENTED AND EVALUATED BELOW. I ATTEST TO THE ADEQUACY AND APPROPRIATENESS OF MY ASSESSMENT, AND CONFIRM THE NECESSITY FOR THE PLANNED PROCEDURE. THE PATIENT IS ALERT, ORIENTED TIMES THREE AND COOPERATIVE. LUNGS ARE CLEAR TO AUSCULTATION. HEART SHOWS REGULAR RHYTHM, NO MURMURS AND NO GALLOPS. ASA CLASS-II. AIRWAY CLASS-II. ASSESSMENTS INTERVERTEBRAL DISC DISORDERS WITH RADICULOPATHY, LUMBAR REGION - M51.16 (PRIMARY) TREATMENT INTERVERTEBRAL DISC DISORDERS WITH RADICULOPATHY, LUMBAR REGION [facility] FLUORO GUIDE SPINE INJECTION (PAIN)[id number] MEDICATION: PAIN FENTANYL CITRATE 25MCG IVPETRAS,SANTHOSH R 10/06/2020 1:45:37 PM > VERIFIED JANET LOPEZ 10/06/2020 2:01:32 PM > SECOND DOSE ORDERED, VERIFIED BY EZRA HANSON 10/06/2020 2:17:24 PM > 25 MCG GIVEN @ 1357 EZRA ANGELES 10/06/2020 2:17:53 PM > 2ND DOSE GIVEN @ 1358 FOR A TOTAL OF 50 MCG OF FENTANYL GIVEN THIS PROCEDURE WAS REVIEWED BY EZRA ANGELES ON 10/09/2020 AT 09:57 AM EDT MED: PAIN VERSED 1MG IV MIDAZOLAMPETRAS,SANTHOSH R 10/06/2020 1:45:56 PM > VERIFIED EZRA ANGELES 10/06/2020 2:15:27 PM > 1 MG GIVEN @1356 THIS PROCEDURE WAS REVIEWED BY EZRA ANGELES ON 10/09/2020 AT 09:57 AM EDT OXYGEN AT 2 LITERS PER NASAL CANNULAPETRAS,SANTHOSH R 10/06/2020 1:46:13 PM > 02 ON @ 1330 PETRAS,SANTHOSH R 10/06/2020 2:17:29 PM > 02 OFF AT 1410 IV LACTATED RINGER'S AT KVMAYE SOLIS 10/06/2020 12:41:52 PM > #20 IV STARTED X 1 ATTEMPT BY THIS STAGE PRODUCER IN RIGHT HAND. SITE ASYMPTOMATIC. LR INFUSING AT KVO PER ORDER WITHOUT DIFFICULTY. PATIENT TOLERATED WELL. PETRAS,SANTHOSH R 10/06/2020 2:06:21 PM > 500 ML INFUSED TOTAL PETRAS,SANTHOSH R 10/06/2020 2:37:39 PM > IV SITE DISCONTNUED, CATHETER TIP INTACT, DSD APPLIED. MEDICATION: PAIN ZOFRAN 4MG/2ML IV ONDANSETRONPETRAS,SANTHOSH R 10/06/2020 12:46:32 PM > VERIFIED ARSENIOMAYE 10/06/2020 12:53:39 PM > ADMINISTERED MED: PAIN BENADRYL 25MG IV DIPHENHYDRAMINEPETRAS,SANTHOSH R 10/06/2020 12:46:43 PM > VERIFIED MAYE CESAR 10/06/2020 12:53:20 PM > ADMINISTERED PROCEDURES PAIN NURSING RECORD PROCEDURE IN ROOM 1326, PHYSICIAN IN ROOM 1355, START 1359, FINISH 1404, PHYSICIAN OUT OF ROOM 1409, OUT OF ROOM 1413, ECG OTHER SINUS BRADYCARDIA, PATIENT SHIELDED YES, SAFETY STRAP YES, PREP BETADINE Otilia DOZIER RN, DRESSING TEGADERM DR. HERNANDEZ LOC: PETRAS,SANTHOSH R 10/06/2020 1:59:32 PM > , 1. ALERT, ORIENTED RESP: PETRAS,SANTHOSH R 10/06/2020 1:59:35 PM > , 1. REGULAR, NO DYSPNEA COLOR: PETRAS,SANTHOSH R 10/06/2020 1:59:39 PM > , 1. PINK SKIN: PETRAS,SANTHOSH R 10/06/2020 1:59:42 PM > , 1. WARM, DRY POSITION: PETRAS,SANTHOSH R 10/06/2020 1:59:45 PM > , 1. PRONE VITALS: PETRAS,SANTHOSH R 10/06/2020 1:32:51 PM > 126/90, 52, 18, 100% PETRAS,SANTHOSH R 10/06/2020 1:34:21 PM > 130/91, 51, 18, 100% PETRAS,SANTHOSH R 10/06/2020 1:39:38 PM > 135/89, 51, 100% PETRAS,SANTHOSH R 10/06/2020 1:44:23 PM > 128/93, 51, 18, 100% PETRAS,SANTHOSH R 10/06/2020 1:49:18 PM > 135/94, 52, 18 100% PETRAS,SANTHOSH R 10/06/2020 1:54:29 PM > 138/92, 53, 18, 99% PETRAS,SANTHOSH R 10/06/2020 1:59:24 PM > 136/91, 52, 18, 99% PETRAS,SANTHOSH R 10/06/2020 2:04:35 PM > 127/87, 56, 18, 99% PETRAS,SANTHOSH R 10/06/2020 2:09:06 PM > 140/90, 50, 18, 100% ALAYNAANNEMARIE ALEJANDROIL R 10/06/2020 2:13:22 PM > 121/86, 53, 18, 99% PETRFLAVIASANTHOSH R 10/06/2020 2:25:11 PM > 120/81, 58, 18, 98% COMPLETION OF PROCEDURE APPOINTMENT: POST PAIN 7, DRESSING SITE DRY AND INTACT, IV DISCONTINUED, SITE CLEAR, CATHETER INTACT, GAIT WHEELCHAIR, TEACHING COMPLETED, PATIENT ACKNOWLEDGES UNDERSTANDING YES, PROCEDURE APPOINTMENT COMPLETED AT 1430 BY: Otilia DOZIER RN PRE PROCEDURE DIAGNOSIS LUMBAR DISC DISORDER WITH RADICULOPATHY POST PROCEDURE DIAGNOSIS LUMBAR DISC DISORDER WITH RADICULOPATHY PROCEDURE LUMBAR EPIDURAL STEROID INJECTION UNDER FLUOROSCOPIC GUIDANCE SURGEON DR. ANGELINA HERNANDEZ FURNITURE PACKER NONE ANESTHESIA LOCAL PRE PROCEDURE NOTE THE PATIENT HAS A HISTORY OF CHRONIC LOW BACK PAIN. I EVALUATED THE PATIENT AND REVIEWED THE CHART. I WENT OVER THE RISKS, ALTERNATIVES, AND BENEFITS ASSOCIATED WITH THIS PROCEDURE. THE PATIENT WOULD LIKE TO PROCEED AND GIVE CONSENT TO PERFORMED THE PROCEDURE. THE PATIENT WOULD LIKE TO MOVE FORWARD WITH IV SEDATION DUE TO ANXIETY AND DISCOMFORT. THE PATIENT DENIES UNEXPLAINABLE WEIGHT LOSS, FEVER, CHILLS, OR NEW CHANGES IN URINARY OR BOWEL CONTROL. THE PATIENT IS COVID-19 NEGATIVE DESCRIPTION OF PROCEDURE THE PATIENT WAS BROUGHT TO THE PROCEDURE ROOM AND PLACED IN THE PRONE POSITION. THE LUMBOSACRAL AREA WAS CLEANED WITH BETADINE SOLUTION AND DRAPED ASEPTICALLY. THE PROCEDURE WAS DONE UNDER STERILE CONDITIONS. A TIMEOUT WAS PERFORMED WHERE THE CONSENTED SITE WAS VERIFIED WITH EVERYONE IN THE ROOM. UNDER FLUOROSCOPIC GUIDANCE, THE TARGET POINT WAS SELECTED AT THE INTERLAMINAR LEVEL OF L4-L5. I CONFIRMED AGAIN THE SITE OF TARGET. LIDOCAINE WAS USED TO NUMB THE SKIN AND THE SUBCUTANEOUS TISSUE BELOW IT. EPIDURAL TUOHY NEEDLE, 17-GAUGE, WAS ADVANCED UNDER FLUOROSCOPIC GUIDANCE AND FOLLOWING PATIENT FEEDBACK UNTIL THE EPIDURAL SPACE WAS REACHED 8 CM DEEP INTO THE SKIN BY THE LOSS OF RESISTANCE TECHNIQUE. ISOVUE-M DYE 30%, 0.25 ML, WAS INJECTED SHOWING ADEQUATE SPREAD OF THE DYE. THEN, A SOLUTION OF 3 ML OF NORMAL SALINE WITH DEPO-MEDROL 40 MG WAS INJECTED SLOWLY FOLLOWING PATIENT FEEDBACK. THE MEDICATIONS WERE VERIFIED WITH THE NURSE. THERE WAS NO EVIDENCE OF BLOOD, PARESTHESIA OR CEREBROSPINAL FLUID DURING THE PROCEDURE. THE PATIENT WAS SENT TO THE RECOVERY ROOM. THE PATIENT WAS MOVING THE EXTREMITIES AND DOING WELL. THERE WERE NO COMPLICATIONS DURING THE PROCEDURE. ESTIMATED BLOOD LOSS WAS LESS THAN 5 ML. FLUOROSCOPY TIME WAS 5 SECONDS. THE PATIENT RECEIVED VERSED 1 MG AND FENTANYL 50 MCG AND BENADRYL 25 MG IV IN DIVIDED DOSES. FACE TO FACE START TIME: 1356 FACE TO FACE END TIME: 1408 TOTAL FACE TO FACE TIME: 13 MINUTES. POST PROCEDURE NOTE THE PATIENT WILL BE SEEN IN A FOLLOW UP IN THE NEXT FEW WEEKS. I AM LOOKING FOR LONG LASTING RELIEF FOR THE PATIENT WITH THIS INTERVENTION. INSTRUCTIONS WERE GIVEN, QUESTIONS WERE ANSWERED, AND THE PATIENT EXPRESSED UNDERSTANDING AND AGREES WITH THE PLAN. I, JANET LOPEZ, DOCUMENTED THE ABOVE INFORMATION ACTING A SCRIBE FOR DR. HERNANDEZ. I HAVE REVIEWED THE ABOVE DOCUMENT, WRITTEN BY JANET LOPEZ, MOTORCYCLE DESIGNER, AND I VERIFY THAT IT IS ACCURATE PROCEDURE CODES 70265 LUMBAR/SACRAL W/ IMAGING [id number] MOD SED SAME PHYS/QHP 5/>YRS DISPOSITION & COMMUNICATION FOLLOW UP FOLLOW UP WITH IMPORT CUSTOMER SERVICE MANAGER (REASON: POST LUMBAR EPIDURAL STEROID INJECTION) ELECTRONICALLY SIGNED BY ANGELINA HERNANDEZ MD, MD ON 10/09/2020 AT 09:01 AM EDT DISCLAIMER : THIS IS A VISIT SUMMARY EXTRACTED FROM THE [email or web address] CHART. IT IS NOT A COPY OF THE [email or web address] PROGRESS NOTE. MARY
== END ==
LOC: M PAIN 11:40
PROVIDERS: ATTEND Anesthesiology
DX: M51.16 Intervertebral disc disorders with radiculopathy, lumbar region (principal); G47.33 Obstructive sleep apnea (adult) (pediatric); J45.909 Unspecified asthma, uncomplicated; R25.1 Tremor, unspecified; Z86.59 Personal history of other mental and behavioral disorders; Z87.891 Personal history of nicotine dependence; Z79.899 Other long term (current) drug therapy
CPT/HCPCS: 62323; 99152; J1030; J1200; J2250; J2405; J3010; Q9967

== ENCOUNTER → 2020-10-23 | Outpatient (CLI) | payer MEDICARE ==
[~2020-10-23] MED LIST changes: -ISOVUE-M 300 61% 15ML VIAL As Ordered ONE; -LIDOCAINE 1% SDV 30ML VIAL As Ordered ONE; -MIDAZOLAM INJ 2MG/2ML VIAL (J2250 PER 1MG) As Ordered ONE; -ONDANSETRON 4MG/2ML VIAL As Ordered ONE; -diphenhydrAMINE 50MG/ML VIAL (J1200) As Ordered ONE; -fentaNYL 100 MCG/2 ML INJECTION (J3010) As Ordered ONE; -methylPREDNISolone SUSP 40MG/ML 1ML VIAL (DEPO MEDROL) As Ordered ONE
--- NOTE | 2020-10-27 01:26 | ECWPNPC ---
PATIENT NAME: OBED RAO : 1980 GENDER: MALE VISIT DATE: 10/23/2020 DISCHARGE DATE: 10/23/20 1447 VISIT LOCKED DATE TIME: PHYSICIAN: BROCK QUIGLEY PHYSICIAN PAGER NO: INACTIVE RESOURCE: BROCK QUIGLEY REASON FOR APPOINTMENT 1. POST LUMBAR EPIDURAL STERIOD INJECTION WITH IV SEDATION HISTORY OF PRESENT ILLNESS GENERAL: HERE FOR POST PROCEDURE FOLLOW-UP. HAD LUMBAR EPIDURAL STEROID INJECTION ON 10/06/2020. REPORTING MARKED REDUCTION IN PAIN THAT CONTINUES TODAY. PAIN BEFORE PROCEDURE WAS 10/10 AND NOW IS 5/10 VAS. STATES GROIN PAIN IS GOOD WELL. USING GABAPENTIN 100 MG CAPSULE 2 CAPSULES 3 TIMES DAILY. -. FALL RISK SCREENING: SCREENING : NO FALLS REPORTED IN THE LAST YEAR. PAIN SCREENING: PATIENT HAS A COMPLAINT OF ACUTE OR CHRONIC PAIN :YES LOCATION OF PAIN:LOW BACK INTENSITY OF PAIN (SCALE OF 1 TO 10):4 WHAT DOES YOUR PAIN FEEL LIKE:ACHING, BURNING, THROBBING, SHOOTING DURATION:CONTINOUS, CONSTANT, ALL DAY PAIN IS INCREASED BY:ACTIVITIES PAIN IS DECREASED BY:OTHERS NURSING NOTE: -. PAIN CENTER INTAKE QUESTIONS: DO YOU HAVE A HISTORY OF MRSA? :NO DO YOU TAKE A BLOOD THINNERS? :NO DO YOU HAVE ANY BLEEDING DISORDERS? :NO ANY NEW NUMBNESS OR WEAKNESS IN YOUR LEGS OR ARMS? :NO ANY PACEMAKER,DEFIBRILLATOR, OR DORSAL COLUMN STIMULATOR? :NO DO YOU HAVE ANY RASHES OR OPEN SORES? :NO ARE YOU ALLERGIC TO IV DYE? :NO ARE YOU DIABETIC? :NO ANY NEW PROBLEMS WITH YOUR MEDICATIONS? :NO HAVE YOU RECEIVED A VACCINE IN THE PAST 30 DAYS? :NO DO YOU PLAN TO RECEIVE A VACCINE IN THE NEXT 21 DAYS? :NO DO YOU NEED ANY PRESCRIPTION? :NO DO YOU TAKE ANY IMMUNOSUPPRESSIVE MEDICATIONS? :NO DO YOU HAVE ANY KIDNEY OR LIVER DISEASE? :NO IS THERE A CHANCE YOU COULD BE ? :NO ARE YOU BREAST FEEDING? :NO CURRENT MEDICATIONS TAKING PROPRANOLOL HCL 20 MG TABLET 1 TABLET ORALLY TWICE A DAY TAKING PRIMIDONE 50 MG TABLET 1 ORALLY PO BID TAKING DEPAKOTE ER 500 MG TABLET EXTENDED RELEASE 24 HOUR 1 TABLET ORALLY THREE TIMES DAILY TAKING VITAMIN C 500 MG TABLET CHEWABLE 1 TABLET ORALLY ONCE A DAY- OTC TAKING EXCEDRIN TENSION HEADACHE 500-65 MG TABLET 2 TABLETS NEEDED ORALLY THREE TIMES A DAY TAKING OMEPRAZOLE 40 MG CAPSULE DELAYED RELEASE 1 CAPSULE ORALLY BID TAKING SIMVASTATIN 40 MG TABLET 1 TABLET IN THE EVENING ORALLY ONCE A DAY TAKING FLONASE ALLERGY RELIEF 50 MCG/ACT SUSPENSION 1 SPRAY IN EACH NOSTRIL NASALLY ONCE A DAY TAKING MONTELUKAST SODIUM 10 MG TABLET 1 TABLET ORALLY ONCE A DAY TAKING AYR SALINE NASAL NETI RINSE 1.57 GM PACKET DIRECTED NASALLY DAILY TAKING ALBUTEROL SULFATE HFA 108 (90 BASE) MCG/ACT AEROSOL SOLUTION 2 PUFFS NEEDED INHALATION EVERY 6 HRS TAKING VITAMIN D 50 MCG (2000 UT) CAPSULE 1 CAPSULE ORALLY ONCE A DAY TAKING AYANNA ALLERGY 180 MG TABLET 1 TABLET ORALLY ONCE A DAY TAKING NICORETTE 4 MG GUM 1 PIECE FOR 30 MINUTE NEEDED MOUTH/THROAT 24 TIME(S) A DAY TAKING RELPAX 20 MG TABLET 1 TABLET ORALLY ONCE A DAY PRN TAKING AIMOVIG 140 MG/ML SOLUTION AUTO-INJECTOR DIRECTED SUBCUTANEOUS ONCE A MONTH TAKING GUANFACINE HCL 2 MG TABLET 1 TAB ORALLY ONCE A DAY TAKING GABAPENTIN 100 MG CAPSULE 2 CAP ORALLY FOR PAIN TID TAKING HYDROCODONE-ACETAMINOPHEN 7.5-325 MG TABLET 1 TABLET NEEDED ORALLY EVERY 4 HRS MDD: 6 NOT-TAKING KETOROLAC TROMETHAMINE 10 MG TABLET 1 TABLET WITH FOOD OR MILK NEEDED ORALLY EVERY 6 HRS NOT-TAKING KETOROLAC TROMETHAMINE 10 MG TABLET 1 TABLET WITH FOOD OR MILK NEEDED ORALLY EVERY 6 HRS NOT-TAKING BOTOX 100 UNIT SOLUTION RECONSTITUTED DIRECTED INJECTION EVERY MONTH NOT-TAKING NICOTROL 10 MG INHALER 1 CARTRIDGE NEEDED INHALATION 16 TIME(S) A DAY NOT-TAKING AMOXICILLIN 500 MG CAPSULE 1 CAPSULE ORALLY EVERY 12 HRS NOT-TAKING CYMBALTA 60 MG CAPSULE DELAYED RELEASE PARTICLES 1 CAPSULE ORALLY FOR PAIN DAILY NOT-TAKING HIBICLENS 4 % LIQUID DIRECTED EXTERNALLY DAILY AT PELVIC AREA NOT-TAKING CETIRIZINE HCL 10 MG TABLET 1 TABLET ORALLY ONCE A DAY NOT-TAKING ZOLMITRIPTAN 5 MG TABLET 1 TABLET NEEDED ONE TIME ORALLY ONCE A DAY NOT-TAKING SUCRALFATE 1 GM TABLET ORAL DIRECTED NOT-TAKING PERCOCET 10-325 MG TABLET 1 TABLET NEEDED ORALLY EVERY 6 HRS, NOTES: FOR SINUS SURGERY NOT-TAKING KEFLEX 500 MG CAPSULE 1 CAPSULE ORALLY EVERY 12 HRS MEDICATION LIST REVIEWED AND RECONCILED WITH THE PATIENT PAST MEDICAL HISTORY HIGH CHOLESTEROL BIPOLAR ADHD ALLERGIES ASTHMA SLEEP 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 COLONOSCOPY 03/2018: MILD NONSPECIFIC CHRONIC INFLAMMATION NOTED ON BIOPSY, NO ACTIVE COLITIS, DYSPLASIA OR GRANULOMA IDENTIFIED EGD 03/2018: MILD CHRONIC GASTRITIS NOTED ON BIOPSY, NO H-PYLORI RIANNA: MANAGED BY NEUROLOGY [facility] PAIN ED- FOLLOWING WITH UROLOGY [facility] 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 INFECTION ALLERGIES SEASONAL ALLERGIES: SNEEZING, COUGHING - ALLERGY SOCIAL HISTORY GENERAL: TOBACCO USE ARE YOU A:FORMER SMOKER HOW LONG HAS IT BEEN SINCE YOU LAST SMOKED?1-5 YEARS SMOKING CESSATION INFORMATION GIVEN10/23/2020 VAPORNO E-CIGARETTENO LATEX QUESTIONNAIRE LATEX ALLERGY : HAVE YOU EVER DEVELOPED ANY TYPE OF REACTION AFTER HANDLING LATEX PRODUCTS SUCH RUBBER GLOVES, CONDOMS, DIAPHRAGMS, BALLOONS, SOCKS, OR UNDERWEAR?NO LATEX ALLERGY : HAVE YOU EVER DEVELOPED ANY TYPE OF REACTION DURING OR AFTER DENTAL APPOINTMENT, VAGINAL/RECTAL EXAMINATION, SURGICAL PROCEDURE, OR ANY OTHER EXPOSURE?NO LATEX RISK : HAVE YOU EVER HAD ANY DIFFICULTY BREATHING OR HIVES AFTER EATING OR HANDLING ANY FRUITS, OR VEGETABLES; SUCH KIWI, BANANAS, STONE FRUITS, OR CHESTNUTSNO LATEX RISK : DO YOU HAVE A PREVIOUS PERSONAL HISTORY OF MORE THAN NINE SURGERIES, SPINA BIFIDA, OR REPEATED CATHERIZATIONS? YES - PLEASE INDICATE : > 9 SURGERIES LATEX RISK : ARE YOU FREQUENTLY EXPOSED TO LATEX PRODUCTS IN YOUR OCCUPATION?NO DATE ASKED : 10/28/2020 ALCOHOL USE: NO. ALCOHOL SCREENING DID YOU HAVE A DRINK CONTAINING ALCOHOL IN THE PAST YEAR?YES HOW OFTEN DID YOU HAVE A DRINK CONTAINING ALCOHOL IN THE PAST YEAR?MONTHLY OR LESS (1 POINT) HOW MANY DRINKS DID YOU HAVE ON A TYPICAL DAY WHEN YOU WERE DRINKING IN THE PAST YEAR?1 OR 2 (0 POINTS) HOW OFTEN DID YOU HAVE SIX OR MORE DRINKS ON ONE OCCASION IN THE PAST YEAR?NEVER (0 POINTS) POINTS1 INTERPRETATIONNEGATIVE RECREATIONAL DRUG USE DRUG USE?NO CAFFEINE CAFFEINE USE?NO PEPSI 3 BOTTLES A DAY SEXUAL HX HAD SEX IN THE LAST 12 MONTHS (VAGINAL, ORAL, OR ANAL)?YES WITHWOMEN ONLY USE PROTECTION?NO PREVENTION STRATEGIES DISCUSSED:OTHER HAVE YOU EVER HAD AN STD?NO HIV / HEP-C SCREENING HIV TEST OFFERED TO PATIENT:YES DATE OFFERED:05/01/2017 TEST ACCEPTED:NO REASON:PATIENT DECLINED ROMAN [employer]ATHOL[employer] [id number] [employer] LANG[employer] LANGUAGES SPOKEN:MONGOLIAN EDUCATION LEVEL OF EDUCATION:HIGH SCHOOL LEARNING BARRIERS / SPECIAL NEEDS CHANGE FROM LAST VISIT?NO BARRIERS TO LEARNING?NO HEARING IMPAIRED?NO VISION IMPAIRED?YES :CORRECTIVE LENSES COGNITIVELY IMPAIRED?NO READINESS TO LEARN?YES LEARNING PREFERENCES?NO LEARNING CAPABILITIES PRESENT?YES ADHD-NO DIFFICULTY WITH LEARNING EMOTIONAL BARRIERS?NO SPECIAL DEVICES?NO DADO OPERATOR NEEDED?NO DOMESTIC VIOLENCE DO YOU FEEL SAFE IN YOUR ENVIRONMENT?YES OCCUPATION: UNEMPLOYED. DIET: REGULAR. EXERCISE: DAILY, WALKS. MARITAL STATUS: SINGLE. OTHERS AT HOME: CHILDREN. - HAS THE PATIENT BEEN EDUCATED REGARDING HIS/HER PLAN OF CARE?YES HAS THE PATIENT BEEN EDUCATED REGARDING PAIN, THE RISK FOR PAIN, THE IMPORTANCE OF EFFECTIVE PAIN MANAGEMENT, AND THE PAIN ASSESSMENT PROCESS?YES ADVANCE DIRECTIVE ADVANCE DIRECTIVE DISCUSSED WITH PATIENT:YES 04/08/20 PT DOES NOT HAVE HCP AND DECLINES INFO AND ASSISTANCE AT THIS TIME. REVIEW OF SYSTEMS CONSTITUTIONAL: ANY RECENT FEVER NO . CHILLS NO . WEIGHT CHANGE OF UNKNOWN REASONS NO . GASTROENTEROLOGY: NEW UNEXPLAINABLE CHANGES IN BOWEL CONTROL NO . CONSTIPATION NO . GENITOURINARY: ANY NEW CHANGE IN BLADDER CONTROL? NO . NEUROLOGY: NEW ONSET DIZZINESS OR NEUROLOGICAL CHANGES NOT MENTIONED NO . NEW NUMBNESS OR PAIN PATTERNS NOT MENTIONED AND PERTINENT TO TODAY'S VISIT NO . CARDIOLOGY: NEW CHEST PRESSURE NO . PATIENT DENIES NO . RESPIRATORY: UNEXPLAINABLE COUGH NO . NEW SHORTNESS OF BREATH NO . VITAL SIGNS WT 210 LBS, HT 65 IN, BMI 34.94 INDEX, BP 136/87 MM HG, HR 78 /MIN, RR 18 /MIN, TEMP 97.8 F, OXYGEN SAT % 97%, SAFE IN ENV? (Y/N) YEST.ISA PINTO. EXAMINATION GENERAL EXAMINATION: GENERALAWAKE,ALERT ,PLEASANT . PSYCHAFFECT NORMAL . LUNGS:LUNG FLOYD ARE CLEAR TO AUSCULTATION BILATERALLY. GOOD MOVEMENT OF AIR . HEART:S1, S2 IN A REGULAR RATE AND RHYTHM. NO SIGNIFICANT MURMURS, RUBS OR GALLOPS NOTED . 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 IT IS NOT A COPY OF THE [facility] PROGRESS NOTE. SHARLAD
== END ==
LOC: M PAIN 14:15
PROVIDERS: ATTEND Nurse Practitioner Family
DX: M51.26 Other intervertebral disc displacement, lumbar region (principal); G89.29 Other chronic pain; G58.8 Other specified mononeuropathies; J45.909 Unspecified asthma, uncomplicated; G47.33 Obstructive sleep apnea (adult) (pediatric); R25.1 Tremor, unspecified; Z86.59 Personal history of other mental and behavioral disorders; Z87.891 Personal history of nicotine dependence; Z79.899 Other long term (current) drug therapy

== ENCOUNTER → 2020-11-09 | Outpatient (CLI) | payer MEDICARE ==
[2020-11-09 16:39] LABS: BASO % 0.5 % (0.0-1.0); EOS # 0.1 10^3/uL (0.0-0.5); EOS % 0.9 % (0.0-3.0); HEMATOCRIT 47.2 % (42.0-52.0); HEMOGLOBIN 16.2 g/dl (13.5-17.5); LYMPH # 2.5 10^3/uL (1.5-5.0); LYMPH % 33.5 % (24.0-44.0); MEAN CORPUSCULAR HEMOGLOBIN 32.1 pg (27.0-33.0); MEAN CORPUSCULAR HGB CONC 34.3 g/dl (32.0-36.5); MEAN CORPUSCULAR VOLUME 93.7 fl (80.0-96.0); MONO # 0.6 10^3/uL (0.0-0.8); MONO % 8.1 % (2.0-8.0); NEUTROPHILS # 4.2 10^3/uL (1.5-8.5); NEUTROPHILS % 56.6 % (36.0-66.0); PLATELET COUNT, AUTOMATED 156 10^3/uL (150-450); RED BLOOD COUNT 5.04 10^6/uL (4.30-6.10); WHITE BLOOD COUNT 7.4 10^3/uL (4.0-10.0)
[2020-11-09 16:55] LABS: HEMOGLOBIN A1c 5.3 %
[2020-11-09 17:40] LABS: ALBUMIN 3.7 GM/DL (3.2-5.2); ALT/SGPT 28 U/L (12-78); BILIRUBIN,TOTAL 0.4 MG/DL (0.2-1.0); BLOOD UREA NITROGEN 6 MG/DL (7-18); CALCIUM LEVEL 8.1 MG/DL (8.5-10.1); CARBON DIOXIDE LEVEL 26 MEQ/L (21-32); CHLORIDE LEVEL 105 MEQ/L (98-107); CREATININE FOR GFR 0.88 MG/DL (0.70-1.30); GLOMERULAR FILTRATION RATE > 60.0 (>60); GLUCOSE, FASTING 93 MG/DL (70-100); POTASSIUM SERUM 3.6 MEQ/L (3.5-5.1); SODIUM LEVEL 139 MEQ/L (136-145); TOTAL PROTEIN 6.8 GM/DL (6.4-8.2); VALPROIC ACID (DEPAKOTE) 89.4 UG/ML (50.0-100.0); VITAMIN B12 LEVEL 446 PG/ML (247-911)
== END ==
LOC: M WUC 14:35
PROVIDERS: ATTEND Student in an Organized Health Care Education/Training Program
DX: F31.9 Bipolar disorder, unspecified (principal); Z79.899 Other long term (current) drug therapy

== ENCOUNTER → 2020-12-10 | Outpatient (CLI) | payer MEDICARE | LOC: M PAIN 09:15 | PROVIDERS: ATTEND Anesthesiology | DX: G58.8 Other specified mononeuropathies (principal); J45.909 Unspecified asthma, uncomplicated; G47.33 Obstructive sleep apnea (adult) (pediatric); Z86.59 Personal history of other mental and behavioral disorders; Z87.891 Personal history of nicotine dependence; Z79.899 Other long term (current) drug therapy ==

== ENCOUNTER → 2020-12-17 | Outpatient (CLI) | payer MEDICARE | LOC: M LABSMTC 09:28 | PROVIDERS: ATTEND Anesthesiology | DX: Z01.812 Encounter for preprocedural laboratory examination (principal); Z20.822 Contact with and (suspected) exposure to COVID-19 ==

== ENCOUNTER → 2020-12-22 | Outpatient (CLI) | payer MEDICARE ==
[~2020-12-22] MED LIST changes: +BUPIVACAINE HCL 0.25% 30ML VIAL As Ordered ONE; +ISOVUE-M 300 61% 15ML VIAL As Ordered ONE; +LIDOCAINE 1% SDV 30ML VIAL As Ordered ONE; +MIDAZOLAM INJ 2MG/2ML VIAL (J2250 PER 1MG) As Ordered ONE; +TRIAMCINOLONE ACETONIDE SUSP 40 MG/ML VIAL (J3301) As Ordered ONE; +diphenhydrAMINE 50MG/ML VIAL (J1200) As Ordered ONE; +fentaNYL 100 MCG/2 ML INJECTION (J3010) As Ordered ONE
== END ==
LOC: M PAIN 14:15
PROVIDERS: ATTEND Anesthesiology
DX: G58.8 Other specified mononeuropathies (principal); G47.33 Obstructive sleep apnea (adult) (pediatric); J45.909 Unspecified asthma, uncomplicated; Z86.59 Personal history of other mental and behavioral disorders; Z87.891 Personal history of nicotine dependence; Z79.899 Other long term (current) drug therapy
CPT/HCPCS: 64425; 99152; 99153; J1200; J2250; J3010; J3301; Q9967

== ENCOUNTER → 2020-12-30 | Outpatient (CLI) | payer MEDICARE ==
[~2020-12-30] MED LIST changes: +AMOX500C PO; +AZIT-12 PO; -BUPIVACAINE HCL 0.25% 30ML VIAL As Ordered ONE; -ISOVUE-M 300 61% 15ML VIAL As Ordered ONE; -LIDOCAINE 1% SDV 30ML VIAL As Ordered ONE; -MIDAZOLAM INJ 2MG/2ML VIAL (J2250 PER 1MG) As Ordered ONE; -TRIAMCINOLONE ACETONIDE SUSP 40 MG/ML VIAL (J3301) As Ordered ONE; -diphenhydrAMINE 50MG/ML VIAL (J1200) As Ordered ONE; -fentaNYL 100 MCG/2 ML INJECTION (J3010) As Ordered ONE
--- NOTE | 2020-12-30 16:51 | REP ---
INDICATION: DYSPNEA, UNSPECIFIED. COMPARISON: 04/04/2019 TECHNIQUE: PA and lateral FINDINGS: In the left upper lobe a very subtle focus of increased density is seen with irregular margins measuring 1.3 cm. This represents a change from the prior exam. The lung underwood are otherwise stable. The cardiomediastinal silhouette is unchanged. The pleural angles are sharp. The osseous structures stable and intact. IMPRESSION: Focal left upper lobe opacity as described above and for which contrast-enhanced CT examination of the chest is recommended. <Electronically signed by Pito Boogie > 12/30/20 [id number]
== END ==
LOC: M RAD 16:27
PROVIDERS: ATTEND Family Medicine Addiction Medicine
DX: R91.8 Other nonspecific abnormal finding of lung field (principal); R06.00 Dyspnea, unspecified

== ENCOUNTER 2020-12-31 20:28 | Emergency (ER) | payer MEDICARE ==
[~2020-12-31] VITALS: Ht 167.6 cm; Wt 90.9 kg
[~2020-12-31 20:28] MED LIST changes: -AMOX500C PO; -AZIT-12 PO
[2020-12-31] MEDS ORDERED: AMOX500C PO (20:43)
[2020-12-31] MEDS ORDERED: AZIT-12 PO (20:43)
[2020-12-31 23:16] LABS: BASO % 0.6 % (0.0-1.0); EOS # 0.1 10^3/uL (0.0-0.5); EOS % 1.1 % (0.0-3.0); HEMATOCRIT 49.6 % (42.0-52.0); MEAN CORPUSCULAR HEMOGLOBIN 32.6 pg (27.0-33.0); MEAN CORPUSCULAR HGB CONC 34.3 g/dl (32.0-36.5); MEAN CORPUSCULAR VOLUME 95.2 fl (80.0-96.0); MONO # 0.7 10^3/uL (0.0-0.8); NEUTROPHILS # 3.2 10^3/uL (1.5-8.5); PLATELET COUNT, AUTOMATED 173 10^3/uL (150-450); RED BLOOD COUNT 5.21 10^6/uL (4.30-6.10)
[2020-12-31 23:32] LABS: ALBUMIN 4.1 GM/DL (3.2-5.2); ALT/SGPT 30 U/L (12-78); BILIRUBIN,DIRECT 0.1 MG/DL (0.0-0.2); BILIRUBIN,TOTAL 0.5 MG/DL (0.2-1.0); LIPASE 110 U/L (73-393); TOTAL PROTEIN 7.3 GM/DL (6.4-8.2)
[2020-12-31] MEDS ORDERED: ONDANSETRON 4MG/2ML VIAL IV ONE (23:45)
[2020-12-31] MEDS ORDERED: ALBUTEROL 90 MCG/ACT 8GM HFA INHALER INH ONE (23:45)
[2020-12-31] MEDS ORDERED: KETOROLAC 30 MG/ML 1ML VIAL IV ONE (23:45)
[2020-12-31] MEDS ORDERED: NS 1,000 ML IV ONE (23:45)
[2020-12-31] MEDS ORDERED: ISOVUE-370 76% 100ML VIAL As Ordered ONE (23:50)
--- NOTE | 2021-01-01 02:02 | REPVR ---
PROCEDURE INFORMATION: Exam: CT Chest With Contrast; Diagnostic Exam date and time: 12/31/2020 11:43 PM Age: 40 years old Clinical indication: Other: Juno opacity; Additional info: Juno opacity/sob TECHNIQUE: Imaging protocol: Diagnostic computed tomography of the chest with contrast. Radiation optimization: All CT scans at this facility use at least one of these dose optimization techniques: automated exposure control; mA and/or kV adjustment per patient size (includes targeted exams where dose is matched to clinical indication); or iterative reconstruction. Contrast material: ISO; Contrast volume: 100 ml; Contrast route: INTRAVENOUS (IV); COMPARISON: 1. CT ABD/PEL W/IV CONTRAST ONLY 2019-03-17 15:[address] ABD/PEL W/IV CONTRAST ONLY 2018-08-22 22:34 FINDINGS: Lungs: Unremarkable. No consolidation. No masses. Pleural spaces: Unremarkable. No pneumothorax. No pleural effusion. Heart: Unremarkable. No cardiomegaly. No pericardial effusion. Mediastinal space: Correlate for esophagitis/gastritis. Aorta: Unremarkable. No aortic aneurysm. Lymph nodes: Unremarkable. No enlarged lymph nodes. Stomach: Mild gastro-esophageal thickening. Gastric wall thickening. Bones/joints: Unremarkable. No acute fracture. Soft tissues: Unremarkable. IMPRESSION: 1. Clear lungs. 2. Mild gastro-esophageal thickening. Gastric wall thickening. Correlate for esophagitis/gastritis. Electronically signed by: Quintin Gibbs On 01/01/2021 02:01:44 AM
--- NOTE | 2021-01-01 02:03 | REPVR ---
PROCEDURE INFORMATION: Exam: CT Abdomen And Pelvis With Contrast Exam date and time: 12/31/2020 11:43 PM Age: 40 years old Clinical indication: Vomiting; Additional info: Abd pain/vomiting TECHNIQUE: Imaging protocol: Computed tomography of the abdomen and pelvis with contrast. Radiation optimization: All CT scans at this facility use at least one of these dose optimization techniques: automated exposure control; mA and/or kV adjustment per patient size (includes targeted exams where dose is matched to clinical indication); or iterative reconstruction. Contrast material: ISO; Contrast volume: 100 ml; Contrast route: INTRAVENOUS (IV); COMPARISON: 1. CT Pelvis without contrast 2019-10-06 06:[address] ABD/PEL W/IV CONTRAST ONLY 2019-03-17 15:41 FINDINGS: Liver: Normal. No mass. Gallbladder and bile ducts: Normal. No calcified stones. No ductal dilation. Pancreas: Normal. No ductal dilation. Spleen: Normal. No splenomegaly. Adrenal glands: Normal. No mass. Kidneys and ureters: Normal. No hydronephrosis. Stomach and bowel: Unremarkable. No obstruction. No mucosal thickening. Appendix: No evidence of appendicitis. Intraperitoneal space: Unremarkable. No free air. No significant fluid collection. Vasculature: Unremarkable. No abdominal aortic aneurysm. Lymph nodes: Unremarkable. No enlarged lymph nodes. Urinary bladder: Unremarkable as visualized. Reproductive: Unremarkable as visualized. Bones/joints: Unremarkable. No acute fracture. Soft tissues: Unremarkable. IMPRESSION: No acute findings. Electronically signed by: Quintin Gibbs On 01/01/2021 02:02:48 AM
[2021-01-01 02:06] LABS: CK-MB VALUE MASS < 1.0 NG/ML (<3.6); CPK CREATINE PHOSPHOKINASE 60 U/L (39-308); MB/CK RELATIVE INDEX 1.67 (< OR =4); TROPONIN I < 0.02 NG/ML (< 0.10)
[2021-01-01 02:14] VITALS: BP 198/111
[2021-01-01] MEDS ORDERED: OMEP40CA4 PO (02:19)
--- NOTE | 2021-01-01 15:09 | ECGEPIP ---
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
== END 2021-01-01 02:33 | disposition home or self-care (01) ==
LOC: M ED 20:28
DX: K20.90 Esophagitis, unspecified without bleeding (principal); B97.4 Respiratory syncytial virus as the cause of diseases classified elsewhere; R11.2 Nausea with vomiting, unspecified; I10 Essential (primary) hypertension; J45.909 Unspecified asthma, uncomplicated; E78.5 Hyperlipidemia, unspecified; G43.909 Migraine, unspecified, not intractable, without status migrainosus; M54.50 Low back pain, unspecified; G47.33 Obstructive sleep apnea (adult) (pediatric); F31.9 Bipolar disorder, unspecified; F41.9 Anxiety disorder, unspecified; Z79.899 Other long term (current) drug therapy
CPT/HCPCS: 36415; 71260; 74177; 80047; 80076; 82550; 82553; 83605; 83690; 84484; 85025; 87040; 87798; 93005; 96361; 96374; 96375; 99284; J1885; J2405; Q9967

== ENCOUNTER → 2021-04-07 | Outpatient (CLI) | payer MEDICARE ==
[~2021-04-07] MED LIST changes: +AMOX500C PO; +AZIT-12 PO
== END ==
LOC: M RAD 15:55
PROVIDERS: ATTEND Physician Assistant Medical
DX: G43.719 Chronic migraine without aura, intractable, without status migrainosus (principal)

== ENCOUNTER → 2021-04-22 | Outpatient (CLI) | payer MEDICARE | LOC: M PAIN 10:00 | PROVIDERS: ATTEND Nurse Practitioner Family | DX: M51.16 Intervertebral disc disorders with radiculopathy, lumbar region (principal); G89.29 Other chronic pain; G47.33 Obstructive sleep apnea (adult) (pediatric); J45.909 Unspecified asthma, uncomplicated; Z86.59 Personal history of other mental and behavioral disorders; Z87.891 Personal history of nicotine dependence; Z79.899 Other long term (current) drug therapy ==

== ENCOUNTER → 2021-06-16 | Outpatient (CLI) | payer MEDICARE ==
[~2021-06-16] MED LIST changes: -D31000TA2 PO; +VITA100093 PO
== END ==
LOC: M RAD 09:38
PROVIDERS: ATTEND Otolaryngology
DX: J32.9 Chronic sinusitis, unspecified (principal); J34.89 Other specified disorders of nose and nasal sinuses

== ENCOUNTER → 2021-07-14 | Outpatient (CLI) | payer MEDICARE, MEDICAID | LOC: M EKG 09:02 | PROVIDERS: ATTEND Family Medicine Addiction Medicine | DX: R07.9 Chest pain, unspecified (principal) ==

== ENCOUNTER → 2021-11-16 | Outpatient (CLI) | payer MEDICARE | LOC: M PAIN 10:45 | PROVIDERS: ATTEND Anesthesiology | DX: M51.16 Intervertebral disc disorders with radiculopathy, lumbar region (principal); E78.00 Pure hypercholesterolemia, unspecified; F31.9 Bipolar disorder, unspecified; F90.9 Attention-deficit hyperactivity disorder, unspecified type; J45.909 Unspecified asthma, uncomplicated; G47.30 Sleep apnea, unspecified; A63.0 Anogenital (venereal) warts; G47.33 Obstructive sleep apnea (adult) (pediatric); N52.9 Male erectile dysfunction, unspecified; R25.1 Tremor, unspecified; N50.82 Scrotal pain; Z87.891 Personal history of nicotine dependence; Z79.899 Other long term (current) drug therapy ==

== ENCOUNTER → 2021-12-08 | Outpatient (CLI) | payer MEDICARE, MEDICAID ==
[~2021-12-08] MED LIST changes: +MELA5TAB20 PO
== END ==
LOC: M LABSMTC 10:48
PROVIDERS: ATTEND Anesthesiology
DX: Z01.812 Encounter for preprocedural laboratory examination (principal); Z20.822 Contact with and (suspected) exposure to COVID-19

== ENCOUNTER 2021-12-13 09:54 | Day surgery (SDC) | payer MEDICARE, MEDICAID ==
[~2021-12-13] VITALS: Ht 167.6 cm; Wt 87.5 kg
[~2021-12-13 09:54] MED LIST changes: +MIDAZOLAM INJ 2MG/2ML VIAL (J2250 PER 1MG) As Ordered ONE
[2021-12-13] MEDS ORDERED: LR 1,000 ML IV SCH (10:15)
[2021-12-13] MEDS ORDERED: fentaNYL 100 MCG/2 ML INJECTION As Ordered ONE (12:27)
[2021-12-13] MEDS ORDERED: LIDOCAINE 1% SDV 30ML VIAL As Ordered ONE (12:39)
[2021-12-13] MEDS ORDERED: ISOVUE-M 300 61% 15ML VIAL As Ordered ONE (12:40)
[2021-12-13] MEDS ORDERED: methylPREDNISolone SUSP 40MG/ML 1ML VIAL (DEPO MEDROL) As Ordered ONE (12:40)
[2021-12-13] MEDS ORDERED: MIDAZOLAM INJ 2MG/2ML VIAL (J2250 PER 1MG) As Ordered ONE (13:00)
[2021-12-13] MEDS ORDERED: diphenhydrAMINE 50MG/ML VIAL (J1200) As Ordered ONE (13:14)
[2021-12-13 13:45] VITALS: BP 143/97
== END 2021-12-13 13:50 | disposition home or self-care (01) ==
LOC: M SDC 09:54
PROVIDERS: ATTEND Anesthesiology
DX: M51.16 Intervertebral disc disorders with radiculopathy, lumbar region (principal); J45.909 Unspecified asthma, uncomplicated; I10 Essential (primary) hypertension; E78.00 Pure hypercholesterolemia, unspecified; F90.9 Attention-deficit hyperactivity disorder, unspecified type; F31.9 Bipolar disorder, unspecified; Z79.899 Other long term (current) drug therapy; Z79.51 Long term (current) use of inhaled steroids; F17.210 Nicotine dependence, cigarettes, uncomplicated
CPT/HCPCS: 62322; 76000; J1030; J1200; J2250; J3010; Q9967

== ENCOUNTER → 2021-12-23 | Outpatient (CLI) | payer MEDICARE, MEDICAID ==
[~2021-12-23] MED LIST changes: -MIDAZOLAM INJ 2MG/2ML VIAL (J2250 PER 1MG) As Ordered ONE
== END ==
LOC: M WUC 10:23
PROVIDERS: ATTEND Family Medicine Addiction Medicine
DX: R05.9 Cough, unspecified (principal)

== ENCOUNTER → 2022-01-03 | Outpatient (CLI) | payer MEDICARE | LOC: M PAIN 10:00 | PROVIDERS: ATTEND Nurse Practitioner Family | DX: M51.16 Intervertebral disc disorders with radiculopathy, lumbar region (principal); G89.29 Other chronic pain; J45.909 Unspecified asthma, uncomplicated; G47.33 Obstructive sleep apnea (adult) (pediatric); Z86.59 Personal history of other mental and behavioral disorders; Z87.891 Personal history of nicotine dependence; Z79.899 Other long term (current) drug therapy ==

== ENCOUNTER → 2022-01-27 | Outpatient (CLI) | payer MEDICARE ==
[~2022-01-27] MED LIST changes: -DOXY-350 PO; +DOXY-444 PO
== END ==
LOC: M PAIN 10:15
PROVIDERS: ATTEND Nurse Practitioner Family
DX: G58.8 Other specified mononeuropathies (principal); G89.29 Other chronic pain; J45.909 Unspecified asthma, uncomplicated; G47.33 Obstructive sleep apnea (adult) (pediatric); Z86.59 Personal history of other mental and behavioral disorders; Z87.891 Personal history of nicotine dependence; Z79.899 Other long term (current) drug therapy

== ENCOUNTER → 2022-02-16 | Outpatient (REF) | payer MEDICARE | LOC: M LAB REF 12:54 | PROVIDERS: ATTEND Nurse Practitioner Family | DX: J02.9 Acute pharyngitis, unspecified (principal) ==

== ENCOUNTER → 2022-04-07 | Outpatient (CLI) | payer MEDICARE ==
[~2022-04-07] MED LIST changes: +DIPH-435 PO; -DIPH25CA32 PO
== END ==
LOC: M PAIN 10:00
PROVIDERS: ATTEND Anesthesiology
DX: G58.8 Other specified mononeuropathies (principal); R10.30 Lower abdominal pain, unspecified; G89.29 Other chronic pain; J45.909 Unspecified asthma, uncomplicated; G47.33 Obstructive sleep apnea (adult) (pediatric); Z86.59 Personal history of other mental and behavioral disorders; Z87.891 Personal history of nicotine dependence; Z79.899 Other long term (current) drug therapy

== ENCOUNTER → 2022-04-13 | Outpatient (CLI) | payer MEDICARE | LOC: M LABSMTC 09:20 | PROVIDERS: ATTEND Anesthesiology | DX: Z01.812 Encounter for preprocedural laboratory examination (principal); Z20.822 Contact with and (suspected) exposure to COVID-19 ==

== ENCOUNTER → 2022-04-15 | Outpatient (CLI) | payer MEDICARE ==
[~2022-04-15] MED LIST changes: +BUPIVACAINE HCL 0.25% 30ML VIAL As Ordered ONE; +ISOVUE-M 300 61% 15ML VIAL As Ordered ONE; +LIDOCAINE 1% SDV 30ML VIAL As Ordered ONE; +MIDAZOLAM INJ 2MG/2ML VIAL As Ordered ONE; +TRIAMCINOLONE ACETONIDE SUSP 40MG/ML 1ML VIAL As Ordered ONE; +fentaNYL 100 MCG/2 ML INJECTION As Ordered ONE
== END ==
LOC: M PAIN 08:00
PROVIDERS: ATTEND Anesthesiology
DX: G58.8 Other specified mononeuropathies (principal); G47.33 Obstructive sleep apnea (adult) (pediatric); J45.909 Unspecified asthma, uncomplicated; Z86.59 Personal history of other mental and behavioral disorders; Z87.891 Personal history of nicotine dependence; Z79.899 Other long term (current) drug therapy

== ENCOUNTER → 2022-04-28 | Outpatient (CLI) | payer MEDICARE ==
[~2022-04-28] MED LIST changes: -BUPIVACAINE HCL 0.25% 30ML VIAL As Ordered ONE; -ISOVUE-M 300 61% 15ML VIAL As Ordered ONE; -LIDOCAINE 1% SDV 30ML VIAL As Ordered ONE; -MIDAZOLAM INJ 2MG/2ML VIAL As Ordered ONE; -TRIAMCINOLONE ACETONIDE SUSP 40MG/ML 1ML VIAL As Ordered ONE; -fentaNYL 100 MCG/2 ML INJECTION As Ordered ONE
== END ==
LOC: M PAIN 08:00
PROVIDERS: ATTEND Anesthesiology
DX: G58.8 Other specified mononeuropathies (principal); G89.29 Other chronic pain; J45.909 Unspecified asthma, uncomplicated; G47.33 Obstructive sleep apnea (adult) (pediatric); Z86.59 Personal history of other mental and behavioral disorders; Z87.891 Personal history of nicotine dependence; Z79.899 Other long term (current) drug therapy

== ENCOUNTER → 2022-05-24 | Outpatient (CLI) | payer MEDICARE ==
[~2022-05-24] MED LIST changes: +MONT-5 PO; -SING10TA32 PO; +TOPI-254 PO; -TOPI50TA9 PO
== END ==
LOC: M PAIN 13:15
PROVIDERS: ATTEND Anesthesiology
DX: G58.8 Other specified mononeuropathies (principal); G89.29 Other chronic pain; J45.909 Unspecified asthma, uncomplicated; G47.33 Obstructive sleep apnea (adult) (pediatric); Z86.59 Personal history of other mental and behavioral disorders; Z87.891 Personal history of nicotine dependence; Z79.899 Other long term (current) drug therapy

== ENCOUNTER → 2022-05-27 | Outpatient (CLI) | payer MEDICARE ==
[2022-05-27 12:36] LABS: HEMATOCRIT 48.1 % (42.0-52.0); HEMOGLOBIN 16.1 g/dl (13.5-17.5); MEAN CORPUSCULAR HEMOGLOBIN 32.5 pg (27.0-33.0); MEAN CORPUSCULAR HGB CONC 33.5 g/dl (32.0-36.5); PLATELET COUNT, AUTOMATED 192 10^3/uL (150-450); RED BLOOD COUNT 4.96 10^6/uL (4.30-6.10); WHITE BLOOD COUNT 8.1 10^3/uL (4.0-10.0)
[2022-05-27 12:40] LABS: ALKALINE PHOSPHATASE 60 U/L (46-116); ALT/SGPT 33 U/L (7.0-40); AST/SGOT 14 U/L (<34); BILIRUBIN,TOTAL 0.4 MG/DL (0.3-1.2); BLOOD UREA NITROGEN 11 MG/DL (9-23); CARBON DIOXIDE LEVEL 30 MMOL/L (20-31); CHLORIDE LEVEL 104 MMOL/L (98-107); CHOLESTEROL LEVEL 230 MG/DL (<200); CHOLESTEROL RISK RATIO 5.04 (<5); CREATININE FOR GFR 0.81 MG/DL (0.70-1.30); GLOMERULAR FILTRATION RATE > 60.0 (>60); GLUCOSE, FASTING 111 MG/DL (60-100); HDL CHOLESTEROL 45.6 MG/DL (>40); LDL CHOLESTEROL 140.8 MG/DL (<100); NON-HDL-C 184 MG/DL; POTASSIUM SERUM 3.7 MMOL/L (3.5-5.1); SODIUM LEVEL 142 MMOL/L (136-145); THYROID STIMULATING HORMONE 1.204 uIU/ML (0.55-4.78); TOTAL PROTEIN 6.6 G/DL (5.7-8.2); TRIGLYCERIDES LEVEL 218 MG/DL (<150)
[2022-05-27 12:41] LABS: VALPROIC ACID (DEPAKOTE) 35.4 UG/ML (50.0-100.0)
== END ==
LOC: M WUC 09:05
PROVIDERS: ATTEND Student in an Organized Health Care Education/Training Program
DX: F31.9 Bipolar disorder, unspecified (principal); E78.5 Hyperlipidemia, unspecified; Z79.899 Other long term (current) drug therapy

== ENCOUNTER → 2022-05-27 | Outpatient (REF) | payer MEDICARE ==
[2022-05-27 12:22] LABS: BASO % 0.5 % (0.0-1.0); EOS # 0.1 10^3/uL (0.0-0.5); EOS % 1.7 % (0.0-3.0); HEMATOCRIT 49.5 % (42.0-52.0); HEMOGLOBIN 16.6 g/dl (13.5-17.5); LYMPH # 2.8 10^3/uL (1.5-5.0); LYMPH % 33.8 % (24.0-44.0); MEAN CORPUSCULAR HEMOGLOBIN 32.4 pg (27.0-33.0); MEAN CORPUSCULAR HGB CONC 33.5 g/dl (32.0-36.5); MEAN CORPUSCULAR VOLUME 96.5 fl (80.0-96.0); MONO # 0.5 10^3/uL (0.0-0.8); MONO % 6.3 % (2.0-8.0); NEUTROPHILS # 4.8 10^3/uL (1.5-8.5); NEUTROPHILS % 57.1 % (36.0-66.0); PLATELET COUNT, AUTOMATED 200 10^3/uL (150-450); RED BLOOD COUNT 5.13 10^6/uL (4.30-6.10); WHITE BLOOD COUNT 8.4 10^3/uL (4.0-10.0)
[2022-05-27 12:27] LABS: ALKALINE PHOSPHATASE 62 U/L (46-116); ALT/SGPT 33 U/L (7.0-40); AST/SGOT 15 U/L (<34); BILIRUBIN,TOTAL 0.5 MG/DL (0.3-1.2); BLOOD UREA NITROGEN 11 MG/DL (9-23); CARBON DIOXIDE LEVEL 28 MMOL/L (20-31); CHLORIDE LEVEL 105 MMOL/L (98-107); CHOLESTEROL LEVEL 238 MG/DL (<200); CREATININE FOR GFR 0.84 MG/DL (0.70-1.30); GLOMERULAR FILTRATION RATE > 60.0 (>60); GLUCOSE, FASTING 98 MG/DL (60-100); HDL CHOLESTEROL 46.6 MG/DL (>40); LDL CHOLESTEROL 146.8 MG/DL (<100); NON-HDL-C 191 MG/DL; POTASSIUM SERUM 3.7 MMOL/L (3.5-5.1); SODIUM LEVEL 142 MMOL/L (136-145); TOTAL PROTEIN 6.8 G/DL (5.7-8.2); TRIGLYCERIDES LEVEL 223 MG/DL (<150)
== END ==
LOC: M LAB REF 11:52
PROVIDERS: ATTEND Family Medicine Addiction Medicine
DX: F31.9 Bipolar disorder, unspecified (principal); E78.5 Hyperlipidemia, unspecified

== ENCOUNTER → 2022-06-16 | Outpatient (CLI) | payer MEDICARE | LOC: M LABSMTC 11:33 | PROVIDERS: ATTEND Anesthesiology | DX: Z01.812 Encounter for preprocedural laboratory examination (principal) ==

== ENCOUNTER → 2022-06-21 | Outpatient (CLI) | payer MEDICARE ==
[~2022-06-21] MED LIST changes: +BUPIVACAINE HCL 0.25% 30ML VIAL As Ordered ONE; +LIDOCAINE 1% SDV 30ML VIAL As Ordered ONE; +MIDAZOLAM INJ 2MG/2ML VIAL As Ordered ONE; +TRIAMCINOLONE ACETONIDE SUSP 40MG/ML 1ML VIAL As Ordered ONE; +diphenhydrAMINE 50MG/ML VIAL As Ordered ONE; +fentaNYL 100 MCG/2 ML INJECTION As Ordered ONE
== END ==
LOC: M PAIN 11:00
PROVIDERS: ATTEND Anesthesiology
DX: G58.8 Other specified mononeuropathies (principal); G47.33 Obstructive sleep apnea (adult) (pediatric); J45.909 Unspecified asthma, uncomplicated; Z86.59 Personal history of other mental and behavioral disorders; Z87.891 Personal history of nicotine dependence; Z79.899 Other long term (current) drug therapy
CPT/HCPCS: 64425; 99152; J1200; J2250; J3010; J3301

== ENCOUNTER → 2022-08-08 | Outpatient (CLI) | payer MEDICARE ==
[~2022-08-08] MED LIST changes: -BUPIVACAINE HCL 0.25% 30ML VIAL As Ordered ONE; -LIDOCAINE 1% SDV 30ML VIAL As Ordered ONE; -MIDAZOLAM INJ 2MG/2ML VIAL As Ordered ONE; -TRIAMCINOLONE ACETONIDE SUSP 40MG/ML 1ML VIAL As Ordered ONE; -diphenhydrAMINE 50MG/ML VIAL As Ordered ONE; -fentaNYL 100 MCG/2 ML INJECTION As Ordered ONE
== END ==
LOC: M PAIN 15:30
PROVIDERS: ATTEND Anesthesiology
DX: M51.16 Intervertebral disc disorders with radiculopathy, lumbar region (principal); G89.29 Other chronic pain; J45.909 Unspecified asthma, uncomplicated; G47.33 Obstructive sleep apnea (adult) (pediatric); Z86.59 Personal history of other mental and behavioral disorders; Z87.891 Personal history of nicotine dependence; Z79.899 Other long term (current) drug therapy

== ENCOUNTER → 2022-10-10 | Outpatient (CLI) | payer MEDICARE, MEDICAID ==
[~2022-10-10] MED LIST changes: +PROHANCE 279.3MG/ML 15ML VIAL As Ordered ONE; +PROHANCE 279.3MG/ML 5ML VIAL As Ordered ONE
== END ==
LOC: M RAD 08:04
PROVIDERS: ATTEND Anesthesiology
DX: M51.16 Intervertebral disc disorders with radiculopathy, lumbar region (principal)
CPT/HCPCS: 72158; A9576

== ENCOUNTER → 2022-10-26 | Outpatient (CLI) | payer MEDICARE, MEDICAID ==
[~2022-10-26] MED LIST changes: -PROHANCE 279.3MG/ML 15ML VIAL As Ordered ONE; -PROHANCE 279.3MG/ML 5ML VIAL As Ordered ONE
== END ==
LOC: M RAD 14:07
PROVIDERS: ATTEND Otolaryngology
DX: J32.9 Chronic sinusitis, unspecified (principal)

== ENCOUNTER → 2022-11-10 | Outpatient (CLI) | payer MEDICARE | LOC: M PAIN 11:45 | PROVIDERS: ATTEND Nurse Practitioner Family | DX: M51.16 Intervertebral disc disorders with radiculopathy, lumbar region (principal); G89.29 Other chronic pain; G47.33 Obstructive sleep apnea (adult) (pediatric); J45.909 Unspecified asthma, uncomplicated; Z86.59 Personal history of other mental and behavioral disorders; Z87.891 Personal history of nicotine dependence; Z79.899 Other long term (current) drug therapy ==

== ENCOUNTER → 2023-01-17 | Outpatient (CLI) | payer MEDICARE | LOC: M PLAIMG 09:17 | PROVIDERS: ATTEND Anesthesiology | DX: M51.16 Intervertebral disc disorders with radiculopathy, lumbar region (principal) ==

== ENCOUNTER → 2023-02-06 | Outpatient (CLI) | payer MEDICARE | LOC: M PAIN 11:30 | PROVIDERS: ATTEND Anesthesiology | DX: M51.16 Intervertebral disc disorders with radiculopathy, lumbar region (principal); N50.812 Left testicular pain; M79.2 Neuralgia and neuritis, unspecified; Z87.891 Personal history of nicotine dependence; Z79.899 Other long term (current) drug therapy ==

== ENCOUNTER → 2023-03-30 | Outpatient (CLI) | payer MEDICARE ==
[~2023-03-30] MED LIST changes: -ALLE1TAB23 PO; +FEXO-157 PO; +ISOVUE-M 300 61% 15ML VIAL As Ordered ONE; +LIDOCAINE 1% SDV 30ML VIAL As Ordered ONE; +TOPI-21 PO; -TOPI-254 PO; +TRIAMCINOLONE ACETONIDE SUSP 40MG/ML 1ML VIAL As Ordered ONE; +diazePAM 5MG TABLET As Ordered ONE; +diphenhydrAMINE 25MG CAP As Ordered ONE; +oxyCODONE 5MG TAB As Ordered ONE
== END ==
LOC: M PAIN 11:00
PROVIDERS: ATTEND Anesthesiology
DX: G58.8 Other specified mononeuropathies (principal); Z80.8 Family history of malignant neoplasm of other organs or systems; Z87.891 Personal history of nicotine dependence; Z79.899 Other long term (current) drug therapy
CPT/HCPCS: 64450; J0665; J3301; Q9967

== ENCOUNTER → 2023-04-06 | Outpatient (CLI) | payer MEDICARE ==
[~2023-04-06] MED LIST changes: -ISOVUE-M 300 61% 15ML VIAL As Ordered ONE; -LIDOCAINE 1% SDV 30ML VIAL As Ordered ONE; -TRIAMCINOLONE ACETONIDE SUSP 40MG/ML 1ML VIAL As Ordered ONE; -diazePAM 5MG TABLET As Ordered ONE; -diphenhydrAMINE 25MG CAP As Ordered ONE; -oxyCODONE 5MG TAB As Ordered ONE
== END ==
LOC: M PAIN 16:15
PROVIDERS: ATTEND Anesthesiology
DX: G58.8 Other specified mononeuropathies (principal); E78.00 Pure hypercholesterolemia, unspecified; F31.9 Bipolar disorder, unspecified; F90.9 Attention-deficit hyperactivity disorder, unspecified type; J45.909 Unspecified asthma, uncomplicated; G47.33 Obstructive sleep apnea (adult) (pediatric); Z87.891 Personal history of nicotine dependence; Z79.891 Long term (current) use of opiate analgesic; Z79.899 Other long term (current) drug therapy

== ENCOUNTER → 2023-04-26 | Outpatient (CLI) | payer MEDICARE ==
[~2023-04-26] MED LIST changes: +PROHANCE 279.3MG/ML 15ML VIAL As Ordered ONE; +PROHANCE 279.3MG/ML 5ML VIAL As Ordered ONE
== END ==
LOC: M RAD 14:20
PROVIDERS: ATTEND Anesthesiology
DX: M51.44 Schmorl's nodes, thoracic region (principal)
CPT/HCPCS: 72157; A9576

== ENCOUNTER → 2023-05-03 | Outpatient (CLI) | payer MEDICARE ==
[~2023-05-03] MED LIST changes: -PROHANCE 279.3MG/ML 15ML VIAL As Ordered ONE; -PROHANCE 279.3MG/ML 5ML VIAL As Ordered ONE
== END ==
LOC: M PAIN 11:00
PROVIDERS: ATTEND Anesthesiology
DX: M54.6 Pain in thoracic spine (principal); Z80.8 Family history of malignant neoplasm of other organs or systems; Z87.891 Personal history of nicotine dependence; Z79.899 Other long term (current) drug therapy

== ENCOUNTER → 2023-05-05 | Outpatient (REF) | payer MEDICARE ==
[2023-05-05 18:45] LABS: BASO % 0.4 % (0.0-1.0); EOS # 0.1 10^3/uL (0.0-0.5); EOS % 1.8 % (0.0-3.0); HEMATOCRIT 49.5 % (42.0-52.0); HEMOGLOBIN 17.1 g/dl (13.5-17.5); LYMPH # 2.5 10^3/uL (1.5-5.0); LYMPH % 36.6 % (24.0-44.0); MEAN CORPUSCULAR HEMOGLOBIN 32.9 pg (27.0-33.0); MEAN CORPUSCULAR HGB CONC 34.5 g/dl (32.0-36.5); MEAN CORPUSCULAR VOLUME 95.2 fl (80.0-96.0); MONO # 0.5 10^3/uL (0.0-0.8); MONO % 7.8 % (2.0-8.0); NEUTROPHILS # 3.6 10^3/uL (1.5-8.5); PLATELET COUNT, AUTOMATED 162 10^3/uL (150-450); WHITE BLOOD COUNT 6.8 10^3/uL (4.0-10.0)
[2023-05-05 19:01] LABS: THYROID STIMULATING HORMONE 1.632 uIU/ML (0.55-4.78)
[2023-05-05 19:04] LABS: FREE T4 1.28 NG/DL (0.89-1.76)
[2023-05-05 19:05] LABS: ALBUMIN 4.1 G/DL (3.2-5.2); ALKALINE PHOSPHATASE 56 U/L (46-116); ALT/SGPT 25 U/L (7.0-40); AST/SGOT 14 U/L (<34); BILIRUBIN,TOTAL 0.5 MG/DL (0.3-1.2); BLOOD UREA NITROGEN 11 MG/DL (9-23); CALCIUM LEVEL 9.1 MG/DL (8.5-10.1); CARBON DIOXIDE LEVEL 28 MMOL/L (20-31); CHLORIDE LEVEL 107 MMOL/L (98-107); CHOLESTEROL LEVEL 249 MG/DL (<200); CHOLESTEROL RISK RATIO 5.53 (<5); CREATININE FOR GFR 0.82 MG/DL (0.70-1.30); GLOMERULAR FILTRATION RATE > 60.0 (>60); GLUCOSE, FASTING 79 MG/DL (60-100); LDL CHOLESTEROL 168.2 MG/DL (<100); POTASSIUM SERUM 5.3 MMOL/L (3.5-5.1); SODIUM LEVEL 140 MMOL/L (136-145); TOTAL PROTEIN 6.9 G/DL (5.7-8.2); TRIGLYCERIDES LEVEL 179 MG/DL (<150)
== END ==
LOC: M LAB REF 17:33
PROVIDERS: ATTEND Family Medicine Addiction Medicine
DX: R53.83 Other fatigue (principal); F31.9 Bipolar disorder, unspecified; E78.5 Hyperlipidemia, unspecified

== ENCOUNTER → 2023-05-19 | Outpatient (CLI) | payer MEDICARE ==
[~2023-05-19] MED LIST changes: +ISOVUE-M 300 61% 15ML VIAL As Ordered ONE; +LIDOCAINE 1% SDV 30ML VIAL As Ordered ONE; +TRIAMCINOLONE ACETONIDE SUSP 40MG/ML 1ML VIAL As Ordered ONE; +diazePAM 5MG TABLET As Ordered ONE; +diphenhydrAMINE 25MG CAP As Ordered ONE; +oxyCODONE 5MG TAB As Ordered ONE
== END ==
LOC: M PAIN 13:00
PROVIDERS: ATTEND Anesthesiology
DX: G58.8 Other specified mononeuropathies (principal); E78.00 Pure hypercholesterolemia, unspecified; F31.9 Bipolar disorder, unspecified; J45.909 Unspecified asthma, uncomplicated; G47.33 Obstructive sleep apnea (adult) (pediatric); Z87.891 Personal history of nicotine dependence; Z79.891 Long term (current) use of opiate analgesic; Z79.899 Other long term (current) drug therapy
CPT/HCPCS: 64450; J0665; J3301

== ENCOUNTER → 2023-07-20 | Outpatient (CLI) | payer MEDICARE ==
[~2023-07-20] MED LIST changes: +DOXY-440 PO; -DOXY-444 PO; -ISOVUE-M 300 61% 15ML VIAL As Ordered ONE; -LIDOCAINE 1% SDV 30ML VIAL As Ordered ONE; -TRIAMCINOLONE ACETONIDE SUSP 40MG/ML 1ML VIAL As Ordered ONE; -diazePAM 5MG TABLET As Ordered ONE; -diphenhydrAMINE 25MG CAP As Ordered ONE; -oxyCODONE 5MG TAB As Ordered ONE
== END ==
LOC: M PAIN 17:30
PROVIDERS: ATTEND Nurse Practitioner Family
DX: M51.16 Intervertebral disc disorders with radiculopathy, lumbar region (principal); G89.29 Other chronic pain; E78.00 Pure hypercholesterolemia, unspecified; F31.9 Bipolar disorder, unspecified; J45.909 Unspecified asthma, uncomplicated; Z87.891 Personal history of nicotine dependence; Z79.891 Long term (current) use of opiate analgesic; Z79.899 Other long term (current) drug therapy

== ENCOUNTER → 2023-11-28 | Outpatient (CLI) | payer MEDICARE ==
[~2023-11-28] MED LIST changes: -FEXO-157 PO; +FEXO-63 PO; +ISOVUE-M 300 61% 15ML VIAL As Ordered ONE; +LIDOCAINE 1% SDV 30ML VIAL As Ordered ONE; +dexAMETHasone 10MG/1ML VIAL PRES.FREE As Ordered ONE; +diazePAM 5MG TABLET As Ordered ONE; +diphenhydrAMINE 25MG CAP As Ordered ONE; +oxyCODONE 5MG TAB As Ordered ONE
== END ==
LOC: M PAIN 13:15
PROVIDERS: ATTEND Anesthesiology
DX: M51.16 Intervertebral disc disorders with radiculopathy, lumbar region (principal); G89.29 Other chronic pain; E78.00 Pure hypercholesterolemia, unspecified; F31.9 Bipolar disorder, unspecified; J45.909 Unspecified asthma, uncomplicated; G47.33 Obstructive sleep apnea (adult) (pediatric); N52.9 Male erectile dysfunction, unspecified; Z87.891 Personal history of nicotine dependence; Z79.891 Long term (current) use of opiate analgesic; Z79.899 Other long term (current) drug therapy
CPT/HCPCS: 62323; J1100; Q9967

== ENCOUNTER → 2023-12-06 | Outpatient (REF) | payer MEDICARE ==
[~2023-12-06] MED LIST changes: -ISOVUE-M 300 61% 15ML VIAL As Ordered ONE; -LIDOCAINE 1% SDV 30ML VIAL As Ordered ONE; -dexAMETHasone 10MG/1ML VIAL PRES.FREE As Ordered ONE; -diazePAM 5MG TABLET As Ordered ONE; -diphenhydrAMINE 25MG CAP As Ordered ONE; -oxyCODONE 5MG TAB As Ordered ONE
[2023-12-06 17:44] LABS: THYROID STIMULATING HORMONE 1.085 uIU/ML (0.55-4.78)
[2023-12-06 17:45] LABS: ALBUMIN 3.9 G/DL (3.2-5.2); ALKALINE PHOSPHATASE 46 U/L (46-116); ALT/SGPT 21 U/L (7.0-40); AST/SGOT 10 U/L (<34); BILIRUBIN,TOTAL 0.3 MG/DL (0.3-1.2); BLOOD UREA NITROGEN 7 MG/DL (9-23); CALCIUM LEVEL 9.6 MG/DL (8.5-10.1); CARBON DIOXIDE LEVEL 29 MMOL/L (20-31); CHLORIDE LEVEL 110 MMOL/L (98-107); CHOLESTEROL LEVEL 175 MG/DL (<200); CHOLESTEROL RISK RATIO 3.53 (<5); CREATININE FOR GFR 0.82 MG/DL (0.70-1.30); GLOMERULAR FILTRATION RATE > 60.0 (>60); GLUCOSE, FASTING 88 MG/DL (60-100); HDL CHOLESTEROL 49.5 MG/DL (>40); LDL CHOLESTEROL 95.5 MG/DL (<100); NON-HDL-C 125.5 MG/DL; POTASSIUM SERUM 4.7 MMOL/L (3.5-5.1); SODIUM LEVEL 143 MMOL/L (136-145); TOTAL PROTEIN 6.7 G/DL (5.7-8.2); TRIGLYCERIDES LEVEL 150 MG/DL (<150)
== END ==
LOC: M LAB REF 16:46
PROVIDERS: ATTEND Family Medicine Addiction Medicine
DX: E78.5 Hyperlipidemia, unspecified (principal)

== ENCOUNTER → 2024-03-01 | Outpatient (CLI) | payer MEDICARE | LOC: M PAIN 15:00 | PROVIDERS: ATTEND Nurse Practitioner Family | DX: M79.18 Myalgia, other site (principal); M51.16 Intervertebral disc disorders with radiculopathy, lumbar region; G89.29 Other chronic pain; E78.00 Pure hypercholesterolemia, unspecified; F31.9 Bipolar disorder, unspecified; J45.909 Unspecified asthma, uncomplicated; G47.30 Sleep apnea, unspecified; G47.33 Obstructive sleep apnea (adult) (pediatric); Z87.891 Personal history of nicotine dependence; Z79.891 Long term (current) use of opiate analgesic; Z79.899 Other long term (current) drug therapy ==

== ENCOUNTER → 2024-03-14 | Outpatient (CLI) | payer MEDICARE ==
[~2024-03-14] MED LIST changes: +TRIAMCINOLONE ACETONIDE SUSP 40MG/ML 1ML VIAL As Ordered ONE; +diazePAM 5MG TABLET As Ordered ONE; +diphenhydrAMINE 25MG CAP As Ordered ONE; +oxyCODONE 5MG TAB As Ordered ONE
== END ==
LOC: M PAIN 16:00
PROVIDERS: ATTEND Anesthesiology
DX: M79.18 Myalgia, other site (principal); G89.29 Other chronic pain; E78.00 Pure hypercholesterolemia, unspecified; F31.9 Bipolar disorder, unspecified; J45.909 Unspecified asthma, uncomplicated; G47.33 Obstructive sleep apnea (adult) (pediatric); Z87.891 Personal history of nicotine dependence; Z79.891 Long term (current) use of opiate analgesic; Z79.899 Other long term (current) drug therapy
CPT/HCPCS: 20552; J0665; J3301

== ENCOUNTER → 2025-01-19 | Outpatient (REF) | payer MEDICARE, MEDICAID ==
[~2025-01-19] MED LIST changes: +TOPI-257; -TOPI100T9; -TRIAMCINOLONE ACETONIDE SUSP 40MG/ML 1ML VIAL As Ordered ONE; -diazePAM 5MG TABLET As Ordered ONE; -diphenhydrAMINE 25MG CAP As Ordered ONE; -oxyCODONE 5MG TAB As Ordered ONE
== END ==
LOC: M LAB REF 18:59
DX: J02.9 Acute pharyngitis, unspecified (principal)